=== PATIENT | male | born 1950 | race Caucasian/White ===

== ENCOUNTER → 2024-02-18 | Outpatient (CLI) | payer MEDICARE, MEDICAID, SELFPAY ==
--- NOTE | 2024-02-18 09:06 | BI_ITS ---
MAMMOGRAPHY - BILATERAL DIAGNOSTIC REASON FOR EXAM: Male, 73 years old. BREAST PAIN PERTINENT HISTORY: Non-contributory. TECHNIQUE: Digital examination. Mediolateral oblique (MLO) and craniocaudad (CC) views of both breasts were obtained. CAD: CAD was performed on this study. COMPARISON: None. FINDINGS: Breast Composition: The breasts are almost entirely fatty. There are no dominant masses or suspicious calcifications. There is a small amount of breast parenchyma in the retroareolar left breast corresponding to the area of pain consistent with gynecomastia. BI/DIAG MAMM W/CAD, BILAT IMPRESSION: Mild left gynecomastia likely explaining the patient''s pain. ASSESSMENT CATEGORY: BIRADS Category 2: Benign. A letter regarding these results will be sent to the patient by the facility within 30 days. FOLLOW UP RECOMMENDATION: No imaging follow up needed. (O) Approximately 10% of breast cancers are not detected by mammography. A normal mammogram should not delay biopsy of a clinically suspicious abnormality. Electronically Signed: Drew Gresham MD at 9:46 EDT ,
== END | disposition home or self-care (01) ==
PROVIDERS: PCP Family Medicine; Referring Provider Nurse Practitioner Family; Visit Provider Nurse Practitioner Family
DX: N64.4 Mastodynia (principal)
CPT/HCPCS: 77066

== ENCOUNTER 2024-07-02 17:53 | Inpatient (IN) | payer MEDICARE, MEDICAID, SELFPAY ==
[2024-07-02] VITALS (10 sets, daily range): BP systolic 112–142; BP diastolic 58–72; PULSE 101–118; RESP 17–22; TEMP 36.8–37.6; O2SAT 90–95; BMI 28.7; BMI 33.3
--- NOTE | 2024-07-02 18:04 | ED.RN ---
PT CAME EMS FROM THE [facility]. REPORT CALLED FROM THE [facility] STATES PT DEMANDED THEY CALL 911. HE WASN'T ABLE TO MOVE HIS FEET. UPON ARRIVAL PT HAS AN ELEVATED TEMP AND HR. 99.5 ORAL ANF 115 HR. PT HAS AUDIBLE GURGLING IN HIS CHEST. PT STATES HE HAS NOT HAD PRODUCTIVE COUGH.
--- NOTE | 2024-07-02 18:12 | EKG12_ITS ---
Test Reason : GEN IL Blood Pressure : */* mmHG Vent. Rate : 105 BPM Atrial Rate : 105 BPM P-R Int : 140 ms QRS Dur : 80 ms QT Int : 334 ms P-R-T Axes : 19 -2 44 degrees QTcB Int : 441 ms Sinus tachycardia with Premature atrial complexes Otherwise normal ECG Confirmed by ROSA PRITCHETT, CHRISTIN ([id number]), magazine editor DINA PENA ([id number]) on 07/03/2024 10:21:07 AM Referred By: Tom Escobedo Confirmed By: CHRISTIN LEE MD
[2024-07-02] MEDS: Albuterol 2.5 MG/3 ML VIAL.NEB. 5 MG INHALATION (18:20)
[2024-07-02] MEDS: Ipratropium/Albuterol Sulfate 3 ML AMPUL.NEB INHALATION (18:20)
--- NOTE | 2024-07-02 18:21 | EDS_ITS ---
<Statement entered by Kalen Sunshine DO - 07/02/24 20:55> Patient was seen and examined with Nurse aby Dos Santos All components of the history and physical confirmed and agreed. History of present illness and physical exam: Patient is a 73-year-old male who presented to the emergency department from [facility] with a chief complaint of shortness of breath, fever chills not feeling well. Patient does have a medical history of CVA with right- sided deficits nonambulatory is wheelchair-bound, hypertension, hyperlipidemia, anxiety, depression. Patient states that he has been sick for the last 4 to 5 days with intermittent needs of oxygen he states that he is not on oxygen chronically. Patient states that he is currently on azithromycin orally. Today noted that he was sweaty and felt worse and had increasing oxygen requirements therefore they sent him here for further evaluation management. Review of systems: Agree with above Physical exam: Agree with above [facility] Patient is a 73-year-old male who presents to the emergency department the chief complaint of cough, congestion, fever, increasing oxygen requirements secondary to hypoxia. Patient will have a workup performed here on the differential diagnose includes but not limited to ACS, pneumonia, upper respiratory infection second viral etiology. Once workup is obtained reviewed he will be reevaluated. Patient be given DuoNebs for his hypoxia. Patient CBC reviewed and was largely unremarkable no evidence of leukocytosis white blood count normal at 6.4, hemoglobin stable 13.8, platelet count normal at 247. Patient sodium was noted to be 132, potassium normal 4.5, creatinine normal at 1.14. Patient's AST and ALT are 15 and 32 respectively. Patient's troponin normal at 28 and proBNP normal at 65.7. Patient's EKG was independently interpreted myself which showed sinus rhythm with premature atrial complexes with a rate of 105 bpm. Patient's chest x-ray reviewed by myself and by radiology which showed no acute cardiopulmonary processes. Patient did test positive for influenza A. At this point time do believe the patient will warrant admission for his acute hypoxic respiratory failure in the setting of influenza A. Patient case was discussed with hospitalist Dr. Menard who accept patient for admission. Patient was notified as well as family at bedside all question concerns answered. Plan: Final impression: Acute hypoxic respiratory failure Influenza A Disposition: Patient will be admitted to the hospital for further evaluation management Supervising attending attestation: Kalen GARLAND History of Present Illness Chief Complaint: General Illness Narrative Narrative: Patient is a 73-year-old male who comes from extended care facility with main diagnosis of a CVA with right-sided deficit, patient's not ambulate he is from a wheelchair. Patient does have history of hypertension hyperlipidemia, anxiety, depression, chronic pain. Patient has been sick for the last 4 to 5 days. He has been coughing, having intermittent needs for oxygen. Patient is currently on azithromycin orally. Today, the patient was sweaty, had more rigors, is complaining more of back pain and leg pain and is here for evaluation. [facility] Home Medications ?Medication ?Instructions ?Recorded ?Last Taken ?Type albuterol sulfate 2.5 mg/3 mL 2.5 mg inhalation TID PRN 07/02/24 Unknown History (0.083 %) solution for nebulization shortness of breath or wheezing amlodipine 5 mg tablet 5 mg PO BID 07/02/24 Unknown History aspirin 81 mg capsule 81 mg PO DAILY 07/02/24 Unknown History atorvastatin 80 mg tablet 80 mg PO QHS 07/02/24 Unknown History azithromycin 250 mg tablet 250 mg PO DAILY 07/02/24 Unknown History (Zithromax) baclofen 10 mg tablet 10 mg PO BID 07/02/24 Unknown History baclofen 5 mg tablet 5 mg PO DAILY 07/02/24 Unknown History furosemide 40 mg tablet (Lasix) 40 mg PO DAILY 07/02/24 Unknown History ipratropium 20 mcg-albuterol 100 1 puff inhalation Q4H PRN 07/02/24 Unknown History mcg/actuation mist for inhalation shortness of breath or wheezing (Combivent Respimat) losartan 100 mg tablet 100 mg PO DAILY 07/02/24 Unknown History metoprolol succinate 25 mg 25 mg PO QHS 07/02/24 Unknown History tablet,extended release 24 hr potassium chloride 20 mEq 40 meq PO DAILY 07/02/24 Unknown History tablet,extended release prednisone 20 mg tablet 40 mg PO DAILY 07/02/24 Unknown History psyllium 1 packet PO DAILY 07/02/24 Unknown History thiamine HCl (vitamin B1) 100 mg 100 mg PO DAILY 07/02/24 Unknown History tablet trazodone 50 mg tablet 25 mg PO QHS 07/02/24 Unknown History venlafaxine 37.5 mg 37.5 mg PO DAILY 07/02/24 Unknown History capsule,extended release 24 hr (Effexor XR) venlafaxine 75 mg capsule,extended 75 mg PO DAILY 07/02/24 Unknown History release 24 hr (Effexor XR) Social History Smoking Status: Former smoker ROS ROS ED ROS Narrative Constitutional: Negative for weight loss. Positive fever, chills, weakness Eyes: Negative for vision loss, vision change, double vision ENT: Negative for any sore throat, ear pain, congestion Cardiovascular: Negative for any chest pain, tightness, palpitations Respiratory: Negative for any sputum production, hemoptysis, dyspnea on exertion, orthopnea. Positive for cough, dyspnea Gastrointestinal: Negative for any abdominal pain, nausea, vomiting, diarrhea, constipation, blood in stool, blood in vomit : Negative for any urinary frequency, dysuria, retention, blood in urine Muscle skeletal: Negative for any neck pain, back pain Neurological: Negative for any headache, syncope, dizziness Skin: Negative for any rashes, itching, abrasions, lacerations Psychiatric: Negative for any depression, anxiety, stress, suicidal ideation, homicidal ideation Hematologic: Negative for any excessive bruising, easy bleeding EXAM Physical Exam Narrative Exam Narrative: Vital signs reviewed. Patient tachycardic, low-grade fever. HEET: Head normocephalic atraumatic, TMs clear bilaterally. Posterior pharynx is clear, dry mucous membranes. Nares clear bilaterally. Neck: Supple with no lymphadenopathy or tenderness. No signs of meningismus. Cardiac: Tachycardic rate no murmurs gallops or rubs, equal peripheral pulses bilaterally. Respiratory: Rhonchorous breath sounds throughout, wheezes to the right mid to lower lobe. No chest tenderness. Abdomen: Soft, nontender.patient's abdomen is slightly distended. No abdominal bruit or pulsatile masses. No hepatosplenomegaly Extremities: No peripheral edema, no signs of gross trauma or deformity. Patient does have muscle wasting however when touching the patient's legs, he is able to flex and extend the feet. He is able to lift his legs off the bed. Neuro: Cranial nerves II through XII intact, no focal neurological deficits. Skin: Clean dry and intact with no rash, purpura, petechiae, vesicles or pustules. Backs/flank: No CVA tenderness, no midline spinal tenderness, no deformity. Psych: Normal mood and affect. No SI, HI or acute psychosis. Const Vital Signs: 07/02/24 17:57 07/02/24 18:00 07/02/24 18:01 Temperature 99.5 F H 99.5 F H Temperature Source Oral Oral Pulse Rate 118 H 113 H Respiratory Rate 17 17 Respiratory Effort Short of Breath Respiratory Pattern Tachypnea Blood Pressure 133/66 H 142/72 H Blood Pressure Mean 88 95 Pulse Ox 92 92 Oxygen Delivery Method Nasal Cannula Nasal Cannula Oxygen Flow Rate (L/min) 4 4 07/02/24 18:12 07/02/24 18:22 07/02/24 19:00 Temperature 99.7 F H Temperature Source Oral Pulse Rate 115 H 111 H Respiratory Rate 22 H 22 H Respiratory Effort Respiratory Pattern Blood Pressure 116/65 Blood Pressure Mean 82 Pulse Ox 92 Oxygen Delivery Method Nasal Cannula Nasal Cannula Oxygen Flow Rate (L/min) 4 4 07/02/24 19:54 07/02/24 20:00 Temperature 99.1 F 99.1 F Temperature Source Oral Pulse Rate 112 H 112 H Respiratory Rate 20 H 20 H Respiratory Effort Respiratory Pattern Blood Pressure 112/61 112/61 Blood Pressure Mean 78 78 Pulse Ox 92 92 Oxygen Delivery Method Nasal Cannula Oxygen Flow Rate (L/min) 4 Positive cachectic General Appearance ED: cachectic Nutritional Appearance: cachectic MDM MDM Lab Data Labs: Laboratory Results - last 24 hr 07/02/24 07/02/24 18:21 19:55 WBC 6.4 RBC 4.36 L Hgb 13.8 Hct 39.2 L MCV 89.9 MCH 31.7 MCHC 35.2 RDW Std Deviation 38.1 RDW Coeff of Sangeeta 11.6 Plt Count 247 MPV 9.4 Immature Gran % (Auto) 0.300 Neut % (Auto) 74.5 H Lymph % (Auto) 17.7 L Dickson % (Auto) 7.5 Eos % (Auto) 0.0 Baso % (Auto) 0.0 Absolute Neuts (auto) 4.8 Absolute Lymphs (auto) 1.13 Nucleated RBC % 0 PT 13.8 INR 1.1 APTT 28.9 Sodium 132 L Potassium 4.5 Chloride 102 Carbon Dioxide 21.0 Anion Gap 8 BUN 27 H Creatinine 1.14 Estim Creat Clear Calc 68.35 Est GFR (MDRD) Af Amer 81 Est GFR (MDRD) Non-Af 67 BUN/Creatinine Ratio 23.7 H Glucose 171 H Lactic Acid 1.3 Calcium 9.1 Total Bilirubin 0.80 AST 50 H ALT 32 Alkaline Phosphatase 86 Troponin I High Sens 28 B-Natriuretic Peptide 65.7 Total Protein 7.4 Albumin 3.5 Globulin 3.9 Albumin/Globulin Ratio 0.9 Urine Color Yellow Urine Clarity Clear Urine pH 6.0 Ur Specific [place] 1.015 Urine Protein 15 H Urine Glucose (UA) Normal Urine Ketones Negative Urine Occult Blood Negative Urine Nitrite Negative Urine Bilirubin Negative Urine Urobilinogen Normal Ur Leukocyte Esterase Negative Urine RBC 0 SEEN Urine WBC 0 SEEN Ur Squamous Epith Cells 0 SEEN Urine Bacteria 0 SEEN Urine Mucus 0 SEEN Radiography Diagnostic Testing: Clinical Impression(s) from Imaging Studies Chest X-Ray 07/02/24 19:00 IMPRESSION: There are no acute findings. Electronically Signed: Zach Cantrell MD at 20:11 EST Reading Location ID and State: [facility] / [place] , Service support , EKG Sinus tachycardia: Attestation: I personally reviewed and interpreted this EKG as follows: Comments: Sinus tachycardia with PACs, rate 105 bpm, [place] 140 ms, QRS duration 80 ms, no acute ST elevation, no acute infarct noted. Treatment and Re-Evaluation :: Differential diagnosis includes however is not limited to: COVID-19, RSV, influenza, community-acquired pneumonia, COPD exacerbation, hypoxia, dehydration, ACS, MT, PE, fluid overload, CHF Patient is slightly tachypneic, tachycardic, low-grade temperature. Patient does have adventitious breath sounds, [facility], back pain, weakness over the last week. Patient will receive a septic workup including troponins, lactic, 2 blood cultures. Patient received a chest x-ray, COVID flu influenza, IV fluids oral Tylenol. All radiologic examinations were read, reviewed by the emergency department attending. From these reads, a plan of care will be put in place. Patient's chest x-ray showed no acute cardiopulmonary pathology. Patient's PT/INR within normal limits. Chemistry shows sodium 132, BUN 27, patient's troponin was negative, BNP was negative. Patient did receive 2 sets of blood cultures, patient's viral swab was positive for influenza A, this does explain the patient's fatigue, fever and chills as well as hypoxia. Patient will need to be admitted to the hospital for increased oxygen demand, patient is currently on 4 L at 92 to 94%. I will reach out to the hospitalist. Patient will be admitted to the hospitalist. Discharge Plan Triage Chief Complaint: General Illness ED Midlevel Provider: Levon Olivares ED Provider: Kalen Sunshine Dx/Rx/DC Orders Clinical Impression: Hypoxia, Influenza A Primary Care Provider: Levon Duke Disposition Disposition: Acute Care Hospital [facility]
[2024-07-02 18:40] LABS: Absolute Lymphocyte Count 1.13 X10^3/uL (0.83-4.51); Absolute Neutrophil Count 4.8 X10^3/uL (2.0-7.7); Hematocrit 39.2 % (40-54); Hemoglobin 13.8 g/dL (13.0-16.5); Lymphocyte # 1.13 X10^3/ul (0.83-4.51); Lymphocyte % 17.7 % (19-41); Mean Corp Hgb Conc 35.2 g/dL (32-36); Mean Corpuscular Hgb 31.7 pg (27.0-32.0); Mean Corpuscular Volume 89.9 fL (80-94); Mean Platelet Vol. 9.4 fl (6.2-12.0); Monocyte# 0.48 X10^3/uL; Monocyte% 7.5 % (0-10); NRBC Flagged by Analyzer 0 % (0-5); Neutrophil # 4.75 X10^3/uL (2.7-7.7); Neutrophil % 74.5 % (47-70); Platelet Count 247 K/mm3 (150-450); RBC Distribution Width CV 11.6 % (11.6-14.6); RBC Distribution Width SD 38.1 fl (35.1-43.9); Red Blood Count 4.36 M/mm3 (4.6-6.2); White Blood Count 6.4 K/mm3 (4.4-11.0)
[2024-07-02 18:45] LABS: International Normalized Ratio 1.1; Partial Thromboplast Time 28.9 Seconds (24.1-36.2); Prothrombin Time (Protime)PT. 13.8 SECONDS (11.7-14.9)
[2024-07-02 18:54] LABS: Lactic Acid 1.3 mmol/L (0.4-1.9)
[2024-07-02 18:57] LABS: ALB/GLOB Ratio 0.9 RATIO (0.9-2.4); AST(SGOT) 50 U/L (15-37); Alanine Aminotransfer ALT/SGPT 32 U/L (16-61); Albumin, Serum 3.5 g/dL (3.2-5.0); Alkaline Phosphatase 86 U/L (45-117); Anion Gap 8 (5-15); BUN 27 mg/dL (7-18); BUN/Creat Ratio 23.7 RATIO (10-20); Calcium,Total 9.1 mg/dL (8.5-10.1); Chloride 102 mmol/L (98-107); Creatinine, Serum 1.14 mg/dL (0.70-1.30); EST Glomerular Filtration Rate 67 mL/min (>60); Est Glom Filt Rate - Afr Amer 81 mL/min (>60); Estimated Creatinine Clearance 68.35 ml/min; Globulin 3.9 g/dL (2.2-4.2); Glucose 171 mg/dL (74-106); Potassium 4.5 mmol/L (3.5-5.1); Protein, Total 7.4 g/dL (6.4-8.2); Sodium Level 132 mmol/L (136-145); Troponin-I HS 28 pg/mL (3.0-78.0)
[2024-07-02] MEDS: 0.9% Normal Saline (1000mL) 1,000 ML 999 ML IV (18:58)
[2024-07-02] MEDS: Acetaminophen 500 MG Tablet 1000 MG PO (18:58)
--- NOTE | 2024-07-02 19:00 | RAD_ITS ---
STUDY: XR Chest 1 View 07/02/2024 7:00 PM REASON FOR EXAM: Male, 73 years old. cough COMPARISON: None TECHNIQUE: XR Chest 1 View FINDINGS: There is no demonstrated pleural abnormality. Normal heart size. Normal mediastinum. Normal yamileth. Prominent appearing increased interstitial lung markings. Normal visualized pulmonary arteries. There is atherosclerotic calcification of the aortic arch with tortuosity. There are diffuse degenerative changes of the visualized thoracic spine. There is degenerative osteoarthritis of the bilateral shoulders. There are no acute findings of the upper abdomen. RAD/Chest 1 View (Portable) IMPRESSION: There are no acute findings. Electronically Signed: Zach Cantrell MD at 20:11 EST ,
[2024-07-02 19:14] LABS: BNP,B-Type NATRIURETIC PEPTIDE 65.7 pg/mL (0-100)
--- NOTE | 2024-07-02 19:45 | PCM.HP.STD ---
[facility] - General General Date of Admission: 07/02/24 Date of Service: 07/02/24 Chief Complaint: Cough, Generalized Weakness, Malaise and Body Aches. HPI Narrative MONICA AMAYA, is a 73 M with a past medical history of essential hypertension; on Lasix, Losartan, Metoprolol and Amlodipine, hyperlipidemia, overweight; with BMI of 28.7 this admission, former tobacco abuse, depression with anxiety; on Venlafaxine and Trazodone, OA; with chronic pain and history of CVA; with residual Right-sided weakness and mobilizing in a wheelchair currently residing at [facility] who presents to [facility] ER complaining of generalized weakness and malaise. Mr. Amaya reports his symptoms began approximately 4-5 days prior to admission with the gradual-onset of progressively worsening cough with generalized weakness and malaise with fatigue and increasing body aches with patient recently started on oral Azithromycin and Prednisone for suspected bronchitis. He then developed a nonproductive cough with a low-grade fever of ~99.7 degrees Fahrenheit with the staff at his [facility] noting hypoxia in the ~85% range on RA so he was sent in to the ER for further evaluation and treatment. He also admits having rigors and sweats with more back pain and leg pain than normal. He denies associated nausea, vomiting, diarrhea, constipation, chest pain, palpitations, heart racing, headache, new focal neurologic deficits or needing supplemental oxygen recently. In the ER his viral PCR assay returned positive for Influenza A complicated by clinical evidence of Acute Respiratory Insufficiency and laboratory evidence of Dehydration; with elevated BUN/creatinine ratio of 23.7 present on admission compounded by Generalized Weakness with Fatigue and Malaise in the setting of known prior CVA; with residual Right-sided weakness and OA with Chronic Pain exacerbated by acute viral illness and he was then admitted to the general medical floor with telemetric monitoring under droplet precautions for ongoing care for a stay that is expected to extend beyond 48 hours. [facility] Home Medications ?Medication ?Instructions ?Recorded ?Last Taken ?Type albuterol sulfate 2.5 mg/3 mL 2.5 mg inhalation TID PRN 07/02/24 Unknown History (0.083 %) solution for nebulization shortness of breath or wheezing amlodipine 5 mg tablet 5 mg PO BID 07/02/24 Unknown History aspirin 81 mg capsule 81 mg PO DAILY 07/02/24 Unknown History atorvastatin 80 mg tablet 80 mg PO QHS 07/02/24 Unknown History azithromycin 250 mg tablet 250 mg PO DAILY 07/02/24 Unknown History (Zithromax) baclofen 10 mg tablet 10 mg PO BID 07/02/24 Unknown History baclofen 5 mg tablet 5 mg PO DAILY 07/02/24 Unknown History furosemide 40 mg tablet (Lasix) 40 mg PO DAILY 07/02/24 Unknown History ipratropium 20 mcg-albuterol 100 1 puff inhalation Q4H PRN 07/02/24 Unknown History mcg/actuation mist for inhalation shortness of breath or wheezing (Combivent Respimat) losartan 100 mg tablet 100 mg PO DAILY 07/02/24 Unknown History metoprolol succinate 25 mg 25 mg PO QHS 07/02/24 Unknown History tablet,extended release 24 hr potassium chloride 20 mEq 40 meq PO DAILY 07/02/24 Unknown History tablet,extended release prednisone 20 mg tablet 40 mg PO DAILY 07/02/24 Unknown History psyllium 1 packet PO DAILY 07/02/24 Unknown History thiamine HCl (vitamin B1) 100 mg 100 mg PO DAILY 07/02/24 Unknown History tablet trazodone 50 mg tablet 25 mg PO QHS 07/02/24 Unknown History venlafaxine 37.5 mg 37.5 mg PO DAILY 07/02/24 Unknown History capsule,extended release 24 hr (Effexor XR) venlafaxine 75 mg capsule,extended 75 mg PO DAILY 07/02/24 Unknown History release 24 hr (Effexor XR) Allergy/AdvReac Type Severity Reaction Status Date / Time No Known Allergies Allergy Verified 07/02/24 22:23 Social History Smoking Status: Former smoker ROS ROS Narrative Review of Systems: Constitutional: Patient admits to chills with a low-grade fever as noted in HPI. Eyes: Patient denies visual changes or discharge from eyes. ENT: Patient denies runny nose, sore throat or ear pain. Resp: Patient admits to SOB and nonproductive cough as per HPI. CV: Patient denies chest pain, palpitations or heart racing. GI: Patient denies abdominal pain, nausea, vomiting, diarrhea or constipation. : Patient denies dysuria or hematuria. MSK: Patient generalized body aches exacerbating his chronic pain. Skin: Patient denies rash, abscess or jaundice. Psych: Patient denies symptoms of uncontrolled depression or anxiety. Neuro: Patient denies headache, paresthesias or new focal neurologic deficits. Allergy: Patient denies lip swelling, tongue swelling or urticaria. Hematology: Patient denies easy bleeding or easy bruisability. Endocrinology: Patient denies polyuria, polydipsia or polyphagia. 14 point ROS otherwise negative except for positives noted above in HPI. Vital Signs Vital Signs Vital Signs: 07/02/24 17:57 07/02/24 18:00 07/02/24 18:01 Temperature 99.5 F H 99.5 F H Temperature Source Oral Oral Pulse Rate 118 H 113 H Respiratory Rate 17 17 Respiratory Effort Short of Breath Respiratory Pattern Tachypnea Blood Pressure 133/66 H 142/72 H Blood Pressure Mean 88 95 Pulse Ox 92 92 Oxygen Delivery Method Nasal Cannula Nasal Cannula Oxygen Flow Rate (L/min) 4 4 07/02/24 18:12 07/02/24 18:22 07/02/24 19:00 Temperature 99.7 F H Temperature Source Oral Pulse Rate 115 H 111 H Respiratory Rate 22 H 22 H Respiratory Effort Respiratory Pattern Blood Pressure 116/65 Blood Pressure Mean 82 Pulse Ox 92 Oxygen Delivery Method Nasal Cannula Nasal Cannula Oxygen Flow Rate (L/min) 4 4 Weight Weight: 205 lb 11.06 oz Body Mass Index (BMI) 28.7 Physical Exam Const alert, oriented x3 and average body habitus Constitutional Narrative: Mild distress noted with chronically ill appearance. General Appearance: cooperative HEENT normocephalic, head/scalp atraumatic, hearing grossly normal bilaterally and moist oral mucous membranes Eyes PERRL and EOMs intact bilaterally Neck no lymphadenopathy and supple Resp normal respiratory effort, no retractions, no use of accessory muscles and clear to auscultation bilaterally Cardio Cardio Narrative: Mild tachycardia noted at ~110 bpm. GI normal to inspection, nondistended, normoactive bowel sounds, soft to palpation, non-tender and non-distended Extremity Extremity Narrative: Patient has evidence of muscle-wasting on the Right. Skin Skin Narrative: Patient has no evidence of rash, abscess or jaundice. Neuro oriented x3, CN's II-XII intact bilaterally, moves all extremities and no focal motor deficits Sensorium / Orientation: awake, alert, oriented to person, oriented to place and oriented to time Speech: speech normal Psych affect normal Results Medical Records Data Attestation: I reviewed the patient's medical records Lab / Micro Data Attestation: I reviewed the patient's lab results. 07/02/24 18:21 07/02/24 18:21 Labs: Laboratory Results - last 24 hr 07/02/24 18:21: WBC 6.4, RBC 4.36 L, Hgb 13.8, Hct 39.2 L, MCV 89.9, MCH 31.7, MCHC 35.2, RDW Std Deviation 38.1, RDW Coeff of Sangeeta 11.6, Plt Count 247, MPV 9.4, Immature Gran % (Auto) 0.300, Neut % (Auto) 74.5 H, Lymph % (Auto) 17.7 L, [place] % (Auto) 7.5, Eos % (Auto) 0.0, Baso % (Auto) 0.0, Absolute Neuts (auto) 4.8, Absolute Lymphs (auto) 1.13, Nucleated RBC % 0, PT 13.8, INR 1.1, APTT 28.9, Sodium 132 L, Potassium 4.5, Chloride 102, Carbon Dioxide 21.0, Anion Gap 8, BUN 27 H, Creatinine 1.14, Estim Creat Clear Calc 68.35, Est GFR (MDRD) Af Amer 81, Est GFR (MDRD) Non-Af 67, BUN/Creatinine Ratio 23.7 H, Glucose 171 H, Lactic Acid 1.3, Calcium 9.1, Total Bilirubin 0.80, AST 50 H, ALT 32, Alkaline Phosphatase 86, Troponin I High Sens 28, B-Natriuretic Peptide 65.7, Total Protein 7.4, Albumin 3.5, Globulin 3.9, Albumin/Globulin Ratio 0.9 Micro: Microbiology 07/02/24 18:26 Mucosa - Nose SARS-CoV-2, Influenza & RSV (PCR) - Final Influenzae A Imaging [facility] Imaging Services [address] [place] [address] Chest 1 View (Portable) MR#: [id number] Acct: [id number] Name: MONICA AMAYA Rep #: [id number] : 1950 M 73 From: Zach Cantrell MD PCP: Dr. Levon Duke MD Status: REG ER Study: Chest 1 View (Portable) Date of Exam: 07/02/24 Exam# [id number] Ordering Dr: Levon Olivares STUDY: XR Chest 1 View 07/02/2024 7:00 PM REASON FOR EXAM: Male, 73 years old. cough COMPARISON: None TECHNIQUE: XR Chest 1 View FINDINGS: There is no demonstrated pleural abnormality. Normal heart size. Normal mediastinum. Normal yamileth. Prominent appearing increased interstitial lung markings. Normal visualized pulmonary arteries. There is atherosclerotic calcification of the aortic arch with tortuosity. There are diffuse degenerative changes of the visualized thoracic spine. There is degenerative osteoarthritis of the bilateral shoulders. There are no acute findings of the upper abdomen. RAD/Chest 1 View (Portable) IMPRESSION: There are no acute findings. Electronically Signed: Zach Cantrell MD at 20:11 EST Reading Location ID and State: [facility] / [place] , Service support , CC: NAYELI Olivares; Dr. Levon Duke MD ~ [employer]oon [employer]pper: Signed Assessment & Plan Assessment/Plan (1) Influenza: (2) Respiratory insufficiency: (3) Dehydration: (4) Generalized weakness: (5) Malaise and fatigue: (6) Chronic pain: QUALIFIERS: Chronic pain type: other chronic pain Qualified Code(s): G89.29 - Other chronic pain (7) History of CVA (cerebrovascular accident): (8) Overweight (BMI 25.0-29.9): PLAN: Plan 1. Acute Influenza A - Admit to general medical floor with telemetric monitoring under droplet precautions. Start Tamiflu 75 mg PO BID. Give vitamin C, vitamin D3 and Zinc to hopefully help boost immunity and speed recovery. Give Tylenol prn for [id number] (level 1-5/10) pain or fever. 2. Acute Respiratory Insufficiency due to #1 - Wean supplemental oxygen as tolerated. 3. Dehydration; evidenced by elevated BUN/creatinine ratio of 23.7 present on admission complicating #1 & #2 - Hold diuretic and volume resuscitate with NS @ 70 cc/hr x 1 liter and then reassess renal indices in AM to monitor response to treatment. 4. Generalized Weakness and Malaise with Severe Fatigue exacerbating preexisting OA with Chronic Pain arising from #1 - #3 - Give Morphine IV prn for severe (level 6-10/10) pain. PT/OT and Case Management to consult and treat on-rounds in the AM for further recommendations with help appreciated in advance. 5. History of CVA; with residual Right-sided weakness and mobilizing in a wheelchair currently residing at [facility] adding to the medical complexity of #1 - #4 with frail, elderly patient poorly tolerating acute viral syndrome - Noted. 6. Overweight; with BMI of 28.7 this admission adding to the burden of disease outlined from #1 - #5 - Weight loss will be recommended. Check TSH. This complicates his case and may hamper recovery. 7. Essential hypertension - Hold Lasix but continue other previous blood pressure medications. Give Hydralazine IV prn for systolic blood pressure > 160 mmHg. 8. Hyperlipidemia - Resume statin. 9. Former tobacco abuse - Noted. 10. Depression with anxiety - Resume home regimen as previous. 11. DVT prophylaxis - Lovenox 40 mg sq daily plus SCD's. Total time: Approximately (but not less than) 75 minutes. Charges/Coding Visit Charges Inpatient E&M: 03787 Init Hosp L3
[2024-07-02 20:01] LABS: Bacteria 0 SEEN /hpf (None Seen); Mucous, Urine 0 SEEN /hpf (<or=2+); Red Blood Cells-Urine 0 SEEN /hpf (0-5); Squamous Epithelial Cells - UA 0 SEEN /hpf (0-5); White Blood Cells 0 SEEN /hpf (0-5)
[2024-07-02 20:06] LABS: Color, Urine Yellow (Yellow); Glucose, Dipstick Normal (Normal); Ketone-Dipstick Negative (Negative); Leukocyte Esterase-Dipstick Negative /ul (Negative); Nitrite-Dipstick Negative (Negative); Occult Blood-Urine Negative /ul (Negative); Protein-Dipstick 15 mg/dl (Negative); Specific Gravity, Urine 1.015 (1.002-1.030); Urine Bilirubin Dipstick Negative (Negative); Urine Clarity Clear (Clear); Urine Urobilinogen Normal (Normal)
[2024-07-02] MEDS: fentaNYL 100 MCG/2 ML Ampul 25 MCG IV (21:19)
[2024-07-02] MEDS: amLODIPine 5 MG Tablet PO (23:28)
[2024-07-02] MEDS: 0.9% Normal Saline (1000mL) 1,000 ML 70 ML IV (23:28)
[2024-07-02] MEDS: Metoprolol(XL)Succ 25 MG Tablet PO (23:28)
[2024-07-02] MEDS: Baclofen 10 MG Tablet PO (23:29)
[2024-07-02] MEDS: Atorvastatin Calcium 80 MG Tablet PO (23:30)
[2024-07-02] MEDS: traZODone 50 MG Tablet 25 MG PO (23:30)
[2024-07-02] MEDS: Oseltamivir Phosphate 75 MG Capsule PO (23:30)
[2024-07-02] MEDS: 0.9% Saline Lock 10 ML Syringe IV (23:31)
[2024-07-03] VITALS (18 sets, daily range): BP systolic 113–143; BP diastolic 53–95; PULSE 89–114; RESP 18–24; TEMP 36.4–37.1; O2SAT 86–97
[2024-07-03] MEDS: Ipratropium/Albuterol Sulfate 3 ML AMPUL.NEB INHALATION ×2 (06:54→18:42)
[2024-07-03 07:23] LABS: Absolute Lymphocyte Count 1.64 X10^3/uL (0.83-4.51); Absolute Neutrophil Count 3.7 X10^3/uL (2.0-7.7); Hematocrit 37.6 % (40-54); Hemoglobin 12.9 g/dL (13.0-16.5); Lymphocyte # 1.64 X10^3/ul (0.83-4.51); Lymphocyte % 26.6 % (19-41); Mean Corp Hgb Conc 34.3 g/dL (32-36); Mean Corpuscular Hgb 31.2 pg (27.0-32.0); Mean Corpuscular Volume 90.8 fL (80-94); Mean Platelet Vol. 9.5 fl (6.2-12.0); Monocyte# 0.84 X10^3/uL; Monocyte% 13.6 % (0-10); NRBC Flagged by Analyzer 0 % (0-5); Neutrophil # 3.66 X10^3/uL (2.7-7.7); Neutrophil % 59.5 % (47-70); Platelet Count 222 K/mm3 (150-450); RBC Distribution Width CV 11.6 % (11.6-14.6); RBC Distribution Width SD 38.8 fl (35.1-43.9); Red Blood Count 4.14 M/mm3 (4.6-6.2); White Blood Count 6.2 K/mm3 (4.4-11.0)
[2024-07-03 07:59] LABS: ALB/GLOB Ratio 0.8 RATIO (0.9-2.4); AST(SGOT) 46 U/L (15-37); Alanine Aminotransfer ALT/SGPT 28 U/L (16-61); Albumin, Serum 3.1 g/dL (3.2-5.0); Alkaline Phosphatase 76 U/L (45-117); Anion Gap 6 (5-15); BUN 23 mg/dL (7-18); Calcium,Total 8.8 mg/dL (8.5-10.1); Chloride 107 mmol/L (98-107); Creatinine, Serum 0.88 mg/dL (0.70-1.30); EST Glomerular Filtration Rate 90 mL/min (>60); Est Glom Filt Rate - Afr Amer 109 mL/min (>60); Estimated Creatinine Clearance 86.67 ml/min; Globulin 3.7 g/dL (2.2-4.2); Glucose 111 mg/dL (74-106); Phosphorus 2.4 mg/dL (2.5-4.9); Potassium 4.1 mmol/L (3.5-5.1); Protein, Total 6.8 g/dL (6.4-8.2); Sodium Level 135 mmol/L (136-145)
[2024-07-03] MEDS: Losartan Potassium 100 MG Tablet PO (08:09)
[2024-07-03] MEDS: Potassium Chloride Oral Tablet 20 MEQ 40 MEQ PO (08:09)
[2024-07-03] MEDS: predniSONE 20 MG Tablet 40 MG PO (08:10)
[2024-07-03] MEDS: Azithromycin 250 MG Tablet PO (08:10)
[2024-07-03] MEDS: Ascorbic Acid 500 MG Tablet 1000 MG PO ×2 (08:10→16:57)
[2024-07-03] MEDS: Zinc Sulfate 50 mg zinc (220 mg) ORAL capsule PO (08:10)
[2024-07-03] MEDS: Thiamine Hydrochloride 100 MG Tablet PO (08:10)
[2024-07-03] MEDS: Enoxaparin 40 MG/0.4 ML Syringe SC (08:10)
[2024-07-03] MEDS: Baclofen 10 MG Tablet PO ×2 (08:10→21:46)
[2024-07-03] MEDS: 0.9% Saline Lock 10 ML Syringe IV ×3 (08:11→21:47)
[2024-07-03] MEDS: Morphine 2 MG/ML Syringe IV (08:11)
[2024-07-03] MEDS: Cholecalciferol (Vit D3) 125 MCG CAPSULE (5,000 UNITS) PO (08:11)
[2024-07-03] MEDS: Psyllium 1 PACKET PO (08:11)
[2024-07-03] MEDS: Aspirin 81 MG TAB.CHEW PO (08:11)
[2024-07-03] MEDS: Venlafaxine XR 75 MG Capsule PO (08:11)
[2024-07-03] MEDS: amLODIPine 5 MG Tablet PO ×2 (08:11→21:49)
[2024-07-03] MEDS: Oseltamivir Phosphate 75 MG Capsule PO ×2 (08:11→21:46)
[2024-07-03] MEDS: Albuterol 2.5 MG/3 ML VIAL.NEB. INHALATION (09:04)
--- NOTE | 2024-07-03 11:07 | PN.HOSP_ITS ---
Subjective Subjective Had increased oxygen requirements to 4 L overnight Objective Data Objective Data Vital Signs: Vital Signs Temp Pulse Resp BP Pulse Ox O2 Del Method O2 Flow Rate 98.6 F 112 H 19 H 143/79 H 95 Nasal Cannula 4 07/03/24 08:00 07/03/24 10:28 07/03/24 09:00 07/03/24 08:00 07/03/24 08:00 07/03/24 08:00 07/03/24 08:00 Oxygen Flow Rate (L/min) 4 Oxygen Delivery Method Nasal Cannula Weight: 218 lb 14.4 oz Body Mass Index (BMI) 33.3 Intake & Output: Intake and Output for Last 24 Hours 07/02/24 07/03/24 07/04/24 03:59 03:59 03:59 Intake Total 1000 / 1000 Output Total 500 / 500 Balance 1000 / 1000 -500 / -500 Lab / Micro Data 07/03/24 06:57 07/03/24 06:57 Labs: Laboratory Results - last 24 hr 07/02/24 18:21: WBC 6.4, RBC 4.36 L, Hgb 13.8, Hct 39.2 L, MCV 89.9, MCH 31.7, MCHC 35.2, RDW Std Deviation 38.1, RDW Coeff of Sangeeta 11.6, Plt Count 247, MPV 9.4, Immature Gran % (Auto) 0.300, Neut % (Auto) 74.5 H, Lymph % (Auto) 17.7 L, [place] % (Auto) 7.5, Eos % (Auto) 0.0, Baso % (Auto) 0.0, Absolute Neuts (auto) 4.8, Absolute Lymphs (auto) 1.13, Nucleated RBC % 0, PT 13.8, INR 1.1, APTT 28.9, Sodium 132 L, Potassium 4.5, Chloride 102, Carbon Dioxide 21.0, Anion Gap 8, BUN 27 H, Creatinine 1.14, Estim Creat Clear Calc 68.35, Est GFR (MDRD) Af Amer 81, Est GFR (MDRD) Non-Af 67, BUN/Creatinine Ratio 23.7 H, Glucose 171 H, Lactic Acid 1.3, Calcium 9.1, Total Bilirubin 0.80, AST 50 H, ALT 32, Alkaline Phosphatase 86, Troponin I High Sens 28, B-Natriuretic Peptide 65.7, Total Protein 7.4, Albumin 3.5, Globulin 3.9, Albumin/Globulin Ratio 0.9 07/02/24 19:55: Urine Color Yellow, Urine Clarity Clear, Urine pH 6.0, Ur Specific [place] 1.015, Urine Protein 15 H, Urine Glucose (UA) Normal, Urine Ketones Negative, Urine Occult Blood Negative, Urine Nitrite Negative, Urine Bilirubin Negative, Urine Urobilinogen Normal, Ur Leukocyte Esterase Negative, Urine RBC 0 SEEN, Urine WBC 0 SEEN, Ur Squamous Epith Cells 0 SEEN, Urine Bacteria 0 SEEN, Urine Mucus 0 SEEN 07/02/24 20:15: TSH 1.400 07/03/24 06:57: WBC 6.2, RBC 4.14 L, Hgb 12.9 L, Hct 37.6 L, MCV 90.8, MCH 31.2, MCHC 34.3, RDW Std Deviation 38.8, RDW Coeff of Sangeeta 11.6, Plt Count 222, MPV 9.5, Immature Gran % (Auto) 0.300, Neut % (Auto) 59.5, Lymph % (Auto) 26.6, [place] % (Auto) 13.6 H, Eos % (Auto) 0.0, Baso % (Auto) 0.0, Absolute Neuts (auto) 3.7, Absolute Lymphs (auto) 1.64, Nucleated RBC % 0, Sodium 135 L, Potassium 4.1, Chloride 107, Carbon Dioxide 22.0, Anion Gap 6, BUN 23 H, Creatinine 0.88, Estim Creat Clear Calc 86.67, Est GFR (MDRD) Af Amer 109, Est GFR (MDRD) Non-Af 90, B UN/Creatinine Ratio 26.0 H, Glucose 111 H, Calcium 8.8, Phosphorus 2.4 L, Magnesium 2.0, Total Bilirubin 0.80, AST 46 H, ALT 28, Alkaline Phosphatase 76, Total Protein 6.8, Albumin 3.1 L, Globulin 3.7, Albumin/Globulin Ratio 0.8 L Micro: Microbiology 07/02/24 18:26 Mucosa - Nose SARS-CoV-2, Influenza & RSV (PCR) - Final Influenzae A Radiography Diagnostic Testing: Radiology Impression Chest X-Ray 07/02/24 19:00 IMPRESSION: There are no acute findings. Electronically Signed: Zach Cantrell MD at 20:11 EST Reading Location ID and State: [facility] / [place] , Service support , Physical Exam Narrative General: Alert, Oriented x3, Cooperative, No apparent distress HEENT: Atraumatic, PERRLA, EOMI, Normocephalic Oral: Moist Mucosa Neck: Supple, No JVD Lungs: Diminished, Normal air movement, No rhonchi, scattered wheeze, No rales Cardiovascular: Tachycardic, Regular Rhythm, Normal S1, Normal S2, No murmurs Abdomen: Soft, Non Tender, Non-Distended, No Hepato-splenomegaly Extremities: No edema, Capillary Refill Less than 3 Seconds Skin: No rashes, No breakdown Musculoskeletal: No Tenderness to Palpation of Joints or Extremities Neurological: No focal neurological deficits, sensory exam intact to light touch and pain, continues with right-sided weakness from a previous stroke Psych/Mental Status: Normal Affect, Appropriate Assessment & Plan Assessment/Plan (1) Influenza: (2) Respiratory insufficiency: PLAN: Plan 1. Acute respiratory insufficiency secondary to influenza A in the setting of COPD ? Continue with inhalers and steroids ? Continue with Tamiflu ? Had increase his oxygen today to 4 L, will continue to monitor 2. Essential HTN/HLD/history of CVA ? Blood pressures are stable ? Continue with his home medications ? Will monitor make adjustments as necessary ? His Lasix were held secondary to needing some gentle IV fluids, will complete 1 bag given shortage 3. Depression/anxiety ? Stable ? Continue with his home medications DVT: Lovenox Charges/Coding Visit Charges Inpatient E&M: 66727 Subs Hosp L2
--- NOTE | 2024-07-03 12:19 | CASEMGMT ---
Social Work- SW met with pt to confirm preferences at d/c. Pt reports that he is planning to return to [facility]. DCA advised. SW remains available to follow. Plan: [facility]
--- NOTE | 2024-07-03 12:33 | CASEMGMT ---
Addendum entered by Makenna Calabrese 07/03/24 14:33: Pt can return w/o precert. Makenna Calabrese DC Planning Asst. Original Note: Discharge Planning Updates sent via [facility] to [place] at May. Asked if precert is needed. Awaiting response. Makenna Calabrese DC Planning Asst.
[2024-07-03] MEDS: Furosemide 40 MG/4 ML Vial IV ×2 (16:57→21:44)
--- NOTE | 2024-07-03 17:19 | CPS ---
called to evaluate patient. patient is barely 90% on 6 lpm. he has course crackles, and is on 40 mg. of lasix at home, daily. I's and O's are positive for 1000 mg. made suggestion for lasix to nurse and charge nurse. If lasix doesnt help, call us and we will start airvo on him.
[2024-07-03] MEDS: Atorvastatin Calcium 80 MG Tablet PO (21:45)
[2024-07-03] MEDS: traZODone 50 MG Tablet 25 MG PO (21:45)
[2024-07-03] MEDS: Metoprolol(XL)Succ 25 MG Tablet PO (21:46)
[2024-07-04] VITALS (17 sets, daily range): BP systolic 124–137; BP diastolic 65–76; PULSE 77–98; RESP 18–24; TEMP 36.6–36.8; O2SAT 92–97; BMI 33.5
[2024-07-04] MEDS: 0.9% Saline Lock 10 ML Syringe IV ×3 (05:36→14:21)
[2024-07-04] MEDS: Ipratropium/Albuterol Sulfate 3 ML AMPUL.NEB INHALATION ×3 (07:07→19:50)
[2024-07-04 08:05] LABS: Magnesium 2.2 mg/dL (1.6-2.6); Phosphorus 3.2 mg/dL (2.5-4.9)
[2024-07-04 08:33] LABS: Anion Gap 11 (5-15); BUN 26 mg/dL (7-18); BUN/Creat Ratio 32.5 RATIO (10-20); Calcium,Total 8.7 mg/dL (8.5-10.1); Chloride 104 mmol/L (98-107); EST Glomerular Filtration Rate 101 mL/min (>60); Est Glom Filt Rate - Afr Amer 122 mL/min (>60); Estimated Creatinine Clearance 95.91 ml/min; Glucose 154 mg/dL (74-106); Potassium 4.2 mmol/L (3.5-5.1); Sodium Level 137 mmol/L (136-145)
[2024-07-04] MEDS: Psyllium 1 PACKET PO (09:14)
[2024-07-04] MEDS: Baclofen 10 MG Tablet PO ×2 (09:14→23:07)
[2024-07-04] MEDS: Aspirin 81 MG TAB.CHEW PO (09:14)
[2024-07-04] MEDS: Enoxaparin 40 MG/0.4 ML Syringe SC (09:14)
[2024-07-04] MEDS: Venlafaxine XR 75 MG Capsule PO (09:14)
[2024-07-04] MEDS: Azithromycin 250 MG Tablet PO (09:14)
[2024-07-04] MEDS: Ascorbic Acid 500 MG Tablet 1000 MG PO ×2 (09:14→17:04)
[2024-07-04] MEDS: Zinc Sulfate 50 mg zinc (220 mg) ORAL capsule PO (09:14)
[2024-07-04] MEDS: Oseltamivir Phosphate 75 MG Capsule PO ×2 (09:15→23:08)
[2024-07-04] MEDS: Cholecalciferol (Vit D3) 125 MCG CAPSULE (5,000 UNITS) PO (09:15)
[2024-07-04] MEDS: Potassium Chloride Oral Tablet 20 MEQ 40 MEQ PO (09:15)
[2024-07-04] MEDS: amLODIPine 5 MG Tablet PO ×2 (09:15→23:08)
[2024-07-04] MEDS: Losartan Potassium 100 MG Tablet PO (09:15)
[2024-07-04] MEDS: Thiamine Hydrochloride 100 MG Tablet PO (09:15)
--- NOTE | 2024-07-04 10:47 | PN.HOSP_ITS ---
Subjective Subjective Doing well, denies any issues says that he is breathing okay with the Airvo Objective Data Objective Data Vital Signs: Vital Signs Temp Pulse Resp BP Pulse Ox O2 Del Method O2 Flow Rate 98.1 F 94 20 H 124/71 H 95 Airvo 35 07/04/24 08:56 07/04/24 08:56 07/04/24 08:56 07/04/24 08:56 07/04/24 08:56 07/04/24 09:00 07/04/24 09:00 FiO2 45 07/04/24 07:08 Oxygen Flow Rate (L/min) 35 Oxygen Delivery Method Airvo Weight: 221 lb 9.033 oz Body Mass Index (BMI) 33.5 Intake & Output: Intake and Output for Last 24 Hours 07/03/24 07/04/24 07/05/24 03:59 03:59 03:59 Intake Total 1000 / 1000 1000 / 1000 100 / 100 Output Total 2400 / 2400 400 / 400 Balance 1000 / 1000 -1400 / -1400 -300 / -300 Lab / Micro Data 07/03/24 06:57 07/04/24 07:09 Labs: Laboratory Results - last 24 hr 07/04/24 07:09: Sodium 137, Potassium 4.2, Chloride 104, Carbon Dioxide 21.0, Anion Gap 11, BUN 26 H, Creatinine 0.80, Estim Creat Clear Calc 95.91, Est GFR (MDRD) Af Amer 122, Est GFR (MDRD) Non-Af 101, BUN/Creatinine Ratio 32.5 H, G lucose 154 H, Calcium 8.7, Phosphorus 3.2, Magnesium 2.2 Micro: Microbiology 07/02/24 19:55 Urine, Random Urine Culture - Final Mixed Gram Pos & Gram Neg Org 07/02/24 18:26 Mucosa - Nose SARS-CoV-2, Influenza & RSV (PCR) - Final Influenzae A Physical Exam Narrative General: Alert, Oriented x3, Cooperative, No apparent distress HEENT: Atraumatic, PERRLA, EOMI, Normocephalic Oral: Moist Mucosa Neck: Supple, No JVD Lungs: Diminished, Normal air movement, No rhonchi, scattered wheeze, No rales Cardiovascular: Tachycardic, Regular Rhythm, Normal S1, Normal S2, No murmurs Abdomen: Soft, Non Tender, Non-Distended, No Hepato-splenomegaly Extremities: No edema, Capillary Refill Less than 3 Seconds Skin: No rashes, No breakdown Musculoskeletal: No Tenderness to Palpation of Joints or Extremities Neurological: No focal neurological deficits, sensory exam intact to light touch and pain, continues with right-sided weakness from a previous stroke Psych/Mental Status: Normal Affect, Appropriate Assessment & Plan Assessment/Plan (1) Influenza: (2) Respiratory insufficiency: PLAN: Plan 1. Acute respiratory insufficiency secondary to influenza A in the setting of COPD ? Continue with inhalers and steroids, increased prednisone to Solu-Medrol ? Continue with Tamiflu ? Currently on Airvo, will continue with diuresis as needed ? If no significant improvement over the next 24 hours we will repeat imaging 2. Essential HTN/HLD/history of CVA ? Blood pressures are stable ? Continue with his home medications ? Will monitor make adjustments as necessary 3. Depression/anxiety ? Stable ? Continue with his home medications DVT: Lovenox Charges/Coding Visit Charges Inpatient E&M: 49115 Subs Hosp L2
[2024-07-04] MEDS: Furosemide 40 MG/4 ML Vial IV (10:54)
[2024-07-04] MEDS: traZODone 50 MG Tablet 25 MG PO (23:08)
[2024-07-04] MEDS: Metoprolol(XL)Succ 25 MG Tablet PO (23:08)
[2024-07-04] MEDS: Atorvastatin Calcium 80 MG Tablet PO (23:19)
[2024-07-05] VITALS (14 sets, daily range): BP systolic 128–140; BP diastolic 70–76; PULSE 72–99; RESP 18–22; TEMP 36.5–36.8; O2SAT 93–95; BMI 33.8
[2024-07-05] MEDS: 0.9% Saline Lock 10 ML Syringe IV ×4 (05:37→23:58)
[2024-07-05] MEDS: Ipratropium/Albuterol Sulfate 3 ML AMPUL.NEB INHALATION ×3 (06:56→19:06)
[2024-07-05 07:33] LABS: Anion Gap 8 (5-15); BUN 27 mg/dL (7-18); BUN/Creat Ratio 31.8 RATIO (10-20); Calcium,Total 9.2 mg/dL (8.5-10.1); Chloride 104 mmol/L (98-107); Creatinine, Serum 0.85 mg/dL (0.70-1.30); EST Glomerular Filtration Rate 94 mL/min (>60); Est Glom Filt Rate - Afr Amer 114 mL/min (>60); Estimated Creatinine Clearance 90.67 ml/min; Glucose 172 mg/dL (74-106); Potassium 4.3 mmol/L (3.5-5.1); Sodium Level 135 mmol/L (136-145)
[2024-07-05] MEDS: Furosemide 40 MG/4 ML Vial IV (08:59)
[2024-07-05] MEDS: Zinc Sulfate 50 mg zinc (220 mg) ORAL capsule PO (09:00)
[2024-07-05] MEDS: Oseltamivir Phosphate 75 MG Capsule PO ×2 (09:00→23:56)
[2024-07-05] MEDS: Ascorbic Acid 500 MG Tablet 1000 MG PO ×2 (09:00→16:52)
[2024-07-05] MEDS: Venlafaxine XR 75 MG Capsule PO (09:00)
[2024-07-05] MEDS: Potassium Chloride Oral Tablet 20 MEQ 40 MEQ PO (09:00)
[2024-07-05] MEDS: Baclofen 10 MG Tablet PO ×2 (09:00→23:57)
[2024-07-05] MEDS: Aspirin 81 MG TAB.CHEW PO (09:00)
[2024-07-05] MEDS: Cholecalciferol (Vit D3) 125 MCG CAPSULE (5,000 UNITS) PO (09:00)
[2024-07-05] MEDS: amLODIPine 5 MG Tablet PO ×2 (09:00→23:56)
[2024-07-05] MEDS: Losartan Potassium 100 MG Tablet PO (09:00)
[2024-07-05] MEDS: Psyllium 1 PACKET PO (09:00)
[2024-07-05] MEDS: Thiamine Hydrochloride 100 MG Tablet PO (09:00)
[2024-07-05] MEDS: Enoxaparin 40 MG/0.4 ML Syringe SC (09:01)
[2024-07-05] MEDS: Azithromycin 250 MG Tablet PO (09:02)
--- NOTE | 2024-07-05 11:42 | CASEMGMT ---
Discharge Planning Updates sent to [facility] with note that pt may discharge as early as tomorrow. Makenan Calabrese DC Planning Asst.
--- NOTE | 2024-07-05 11:54 | PN.HOSP_ITS ---
Subjective Subjective Breathing is better we will continue with as needed Lasix, Objective Data Objective Data Vital Signs: Vital Signs Temp Pulse Resp BP Pulse Ox O2 Del Method O2 Flow Rate 98.3 F 99 18 140/75 H 94 Nasal Cannula 5 07/05/24 11:30 07/05/24 11:30 07/05/24 11:30 07/05/24 11:30 07/05/24 11:30 07/05/24 11:30 07/05/24 11:30 FiO2 45 07/04/24 07:08 Oxygen Flow Rate (L/min) 5 Oxygen Delivery Method Nasal Cannula Weight: 223 lb 8.78 oz Body Mass Index (BMI) 33.8 Intake & Output: Intake and Output for Last 24 Hours 07/04/24 07/05/24 07/06/24 03:59 03:59 03:59 Intake Total 1000 / 1000 340 / 340 300 / 300 Output Total 2400 / 2400 2800 / 2800 Balance -1400 / -1400 -2460 / -2460 300 / 300 Lab / Micro Data 07/03/24 06:57 07/05/24 04:38 Labs: Laboratory Results - last 24 hr 07/05/24 04:38: Sodium 135 L, Potassium 4.3, Chloride 104, Carbon Dioxide 23.0, Anion Gap 8, BUN 27 H, Creatinine 0.85, Estim Creat Clear Calc 90.67, Est GFR (MDRD) Af Amer 114, Est GFR (MDRD) Non-Af 94, BUN/Creatinine Ratio 31.8 H, G lucose 172 H, Calcium 9.2 Micro: Microbiology 07/02/24 20:55 Blood Culture (Wb) - Left Forearm Blood Culture - Preliminary No growth in 48 hours. 07/02/24 18:21 Blood Culture (Wb) - Left Forearm Blood Culture - Preliminary No growth in 48 hours. 07/02/24 19:55 Urine, Random Urine Culture - Final Mixed Gram Pos & Gram Neg Org 07/02/24 18:26 Mucosa - Nose SARS-CoV-2, Influenza & RSV (PCR) - Final Influenzae A Physical Exam Narrative General: Alert, Oriented x3, Cooperative, No apparent distress HEENT: Atraumatic, PERRLA, EOMI, Normocephalic Oral: Moist Mucosa Neck: Supple, No JVD Lungs: Diminished, Normal air movement, No rhonchi, no wheeze, No rales Cardiovascular: Tachycardic, Regular Rhythm, Normal S1, Normal S2, No murmurs Abdomen: Soft, Non Tender, Non-Distended, No Hepato-splenomegaly Extremities: No edema, Capillary Refill Less than 3 Seconds Skin: No rashes, No breakdown Musculoskeletal: No Tenderness to Palpation of Joints or Extremities Neurological: No focal neurological deficits, sensory exam intact to light touch and pain, continues with right-sided weakness from a previous stroke Psych/Mental Status: Normal Affect, Appropriate Assessment & Plan Assessment/Plan (1) Influenza: (2) Respiratory insufficiency: PLAN: Plan 1. Acute respiratory insufficiency secondary to influenza A in the setting of COPD ? Continue with inhalers and steroids, increased prednisone to Solu-Medrol ? Continue with Tamiflu ? Improved nasal cannula, will continue with diuresis as needed ? If no significant improvement over the next 24 hours we will repeat imaging 2. Essential HTN/HLD/history of CVA ? Blood pressures are stable ? Continue with his home medications ? Will monitor make adjustments as necessary 3. Depression/anxiety ? Stable ? Continue with his home medications DVT: Lovenox Charges/Coding Visit Charges Inpatient E&M: 50618 Subs Hosp L2
[2024-07-05 14:51] LABS: Magnesium 2.4 mg/dL (1.6-2.6)
[2024-07-05] MEDS: Ensure Plus High Protein 120 ML LIQUID PO ×2 (16:52→23:55)
[2024-07-05] MEDS: Atorvastatin Calcium 80 MG Tablet PO (23:57)
[2024-07-05] MEDS: Metoprolol(XL)Succ 25 MG Tablet PO (23:58)
[2024-07-05] MEDS: traZODone 50 MG Tablet 25 MG PO (23:59)
[2024-07-06] VITALS (13 sets, daily range): BP systolic 124–147; BP diastolic 56–76; PULSE 87–103; RESP 18–20; TEMP 36.4–36.8; O2SAT 92–96; BMI 33.8
[2024-07-06] MEDS: 0.9% Saline Lock 10 ML Syringe IV ×4 (05:54→21:39)
[2024-07-06 07:28] LABS: Absolute Lymphocyte Count 1.39 X10^3/uL (0.83-4.51); Absolute Neutrophil Count 8.4 X10^3/uL (2.0-7.7); Basophil# 0.01 X10^3/uL; Basophil% 0.1 % (0-1); Hematocrit 39.2 % (40-54); Lymphocyte # 1.39 X10^3/ul (0.83-4.51); Mean Corp Hgb Conc 35.7 g/dL (32-36); Mean Corpuscular Hgb 31.9 pg (27.0-32.0); Mean Corpuscular Volume 89.3 fL (80-94); Mean Platelet Vol. 9.4 fl (6.2-12.0); Monocyte# 0.81 X10^3/uL; Monocyte% 7.6 % (0-10); NRBC Flagged by Analyzer 0 % (0-5); Neutrophil # 8.44 X10^3/uL (2.7-7.7); Neutrophil % 78.9 % (47-70); Platelet Count 365 K/mm3 (150-450); RBC Distribution Width CV 11.2 % (11.6-14.6); RBC Distribution Width SD 36.3 fl (35.1-43.9); Red Blood Count 4.39 M/mm3 (4.6-6.2); White Blood Count 10.7 K/mm3 (4.4-11.0)
[2024-07-06] MEDS: Ipratropium/Albuterol Sulfate 3 ML AMPUL.NEB INHALATION ×3 (07:44→18:59)
[2024-07-06 07:57] LABS: Anion Gap 3 (5-15); BUN 26 mg/dL (7-18); BUN/Creat Ratio 33.8 RATIO (10-20); Chloride 106 mmol/L (98-107); Creatinine, Serum 0.77 mg/dL (0.70-1.30); EST Glomerular Filtration Rate 105 mL/min (>60); Est Glom Filt Rate - Afr Amer 127 mL/min (>60); Estimated Creatinine Clearance 96.33 ml/min; Glucose 172 mg/dL (74-106); Potassium 4.3 mmol/L (3.5-5.1); Sodium Level 138 mmol/L (136-145)
[2024-07-06] MEDS: Potassium Chloride Oral Tablet 20 MEQ 40 MEQ PO (08:47)
[2024-07-06] MEDS: Cholecalciferol (Vit D3) 125 MCG CAPSULE (5,000 UNITS) PO (08:47)
[2024-07-06] MEDS: Thiamine Hydrochloride 100 MG Tablet PO (08:47)
[2024-07-06] MEDS: Azithromycin 250 MG Tablet PO (08:47)
[2024-07-06] MEDS: Ascorbic Acid 500 MG Tablet 1000 MG PO ×2 (08:48→16:38)
[2024-07-06] MEDS: amLODIPine 5 MG Tablet PO ×2 (08:48→21:38)
[2024-07-06] MEDS: Psyllium 1 PACKET PO (08:48)
[2024-07-06] MEDS: Enoxaparin 40 MG/0.4 ML Syringe SC (08:48)
[2024-07-06] MEDS: Losartan Potassium 100 MG Tablet PO (08:48)
[2024-07-06] MEDS: Aspirin 81 MG TAB.CHEW PO (08:48)
[2024-07-06] MEDS: Baclofen 10 MG Tablet PO ×2 (08:49→21:38)
[2024-07-06] MEDS: Venlafaxine XR 75 MG Capsule PO (08:49)
[2024-07-06] MEDS: Oseltamivir Phosphate 75 MG Capsule PO ×2 (08:49→21:38)
[2024-07-06] MEDS: Furosemide 40 MG/4 ML Vial IV (08:49)
[2024-07-06] MEDS: Ensure Plus High Protein 120 ML LIQUID PO ×4 (08:49→21:37)
[2024-07-06] MEDS: Zinc Sulfate 50 mg zinc (220 mg) ORAL capsule PO (08:50)
--- NOTE | 2024-07-06 10:31 | ECHOCS_ITS ---
Reason For Study: PALPITATIONS Procedure This was a 2D Doppler, Color Flow transthoracic echocardiogram. The study was technically difficult. Contrast injection was performed. Exam performed portable in patient room. Left Ventricle Normal LV size. The estimated ejection fraction is 60 %. No evidence for diastolic dysfunction. No regional wall motion abnormalities noted. Right Ventricle Normal RV size. Normal systolic function. Atria The left and right atria are normal. No doppler evidence for ASD. Mitral Valve There is no mitral valve stenosis. No mitral valve insufficiency. Tricuspid Valve There is no tricuspid stenosis. Unable to estimate RV systolic pressure due to inadequate jet, pulmonary artery pressure probably normal. Aortic Valve Trisinus/trileaflet aortic valve. There is no aortic stenosis. No aortic valve insufficiency. Pulmonic Valve There is no pulmonic valvular stenosis. No pulmonic valve insufficiency. Great Vessels Normal aortic root. Pericardium/Pleural No pericardial effusion. Medication Diluted definity 1ml given slow IV push to enhance endocardial definition. MMode/2D Measurements & Calculations LVOT diam: 2.0 cm asc Aorta Diam: 3.0 cm LAV(MOD-bp): 37.9 ml LVOT area: 3.2 cm2 LAV(MOD-bp) Indexed: 17.7 ml/m2 LAV(MOD-sp2): 31.2 ml LAV(MOD-sp4): 42.0 ml SV(MOD-sp4): 53.9 ml SV(sp4-el): 58.2 ml LVAd ap4: 32.8 cm2 LVLd ap4: 8.4 cm SI(MOD-sp4): 25.2 ml/m2 EDV(MOD-sp4): 101.9 ml EDV(sp4-el): 108.5 ml LVAs ap4: 20.1 cm2 LVLs ap4: 6.8 cm ESV(MOD-sp4): 48.0 ml ESV(sp4-el): 50.3 ml EF(MOD-sp4): 52.9 % EF(sp4-el): 53.6 % TAPSE: 1.9 cm LA A4 area: 17.1 cm2 RA A4 area: 7.9 cm2 Time Measurements MV dec time: 0.13 sec Doppler Measurements & Calculations MV E max aroldo: 63.6 cm/sec Lat Peak E' Aroldo: 6.3 cm/sec Med Peak E' Aroldo: 5.6 cm/sec MV A max aroldo: 113.4 cm/sec E/E' lat: 10.0 E/E' med: 11.3 MV E/A: 0.56 MV V2 max: 113.8 cm/sec MV dec slope: 471.8 cm/sec2 Ao V2 max: 146.5 cm/sec MV max P.2 mmHg Ao max P.6 mmHg MV V2 mean: 68.3 cm/sec Ao V2 mean: 101.4 cm/sec MV mean P.2 mmHg Ao mean P.7 mmHg MV V2 VTI: 32.0 cm Ao V2 VTI: 29.0 cm MVA(VTI): 2.6 cm2 AV (velocity ratio): 0.90 ALEXEY(I,D): 2.9 cm2 ALEXEY(V,D): 2.8 cm2 LV V1 max: 128.1 cm/sec SV(LVOT): 84.5 ml LV V1 max P.6 mmHg LV V1 mean P.7 mmHg LV V1 mean: 91.3 cm/sec LV V1 VTI: 26.3 cm ECHO/Echo Complete W/ Contrast Interpretation Summary The estimated ejection fraction is 60 %. No evidence for diastolic dysfunction. Ordering Physician: Epi Tirado Referring Physician: Tom Escobedo Performed By: Josselyn Cortez and Student
--- NOTE | 2024-07-06 16:44 | PCM.PN.HOSP ---
Subjective Subjective Doing well, no issues overnight Objective Data Objective Data Vital Signs: Vital Signs Temp Pulse Resp BP Pulse Ox O2 Del Method O2 Flow Rate 97.8 F 90 18 124/65 H 96 Nasal Cannula 5 07/06/24 14:59 07/06/24 14:59 07/06/24 14:59 07/06/24 14:59 07/06/24 14:59 07/06/24 14:59 07/06/24 14:59 FiO2 45 07/04/24 07:08 Oxygen Flow Rate (L/min) 5 Oxygen Delivery Method Nasal Cannula Weight: 223 lb 8.78 oz Body Mass Index (BMI) 33.8 Intake & Output: Intake and Output for Last 24 Hours 07/05/24 07/06/24 07/07/24 03:59 03:59 03:59 Intake Total 340 / 340 1450 / 1450 Output Total 2800 / 2800 500 / 500 400 / 400 Balance -2460 / -2460 950 / 950 -400 / -400 Lab / Micro Data 07/06/24 07:14 07/06/24 07:14 Labs: Laboratory Results - last 24 hr 07/06/24 07:14: WBC 10.7, RBC 4.39 L, Hgb 14.0, Hct 39.2 L, MCV 89.3, MCH 31.9, MCHC 35.7, RDW Std Deviation 36.3, RDW Coeff of Sangeeta 11.2 L, Plt Count 365, MPV 9.4, Immature Gran % (Auto) 0.400, Neut % (Auto) 78.9 H, Lymph % (Auto) 13.0 L, Sherman % (Auto) 7.6, Eos % (Auto) 0.0, Baso % (Auto) 0.1, Absolute Neuts (auto) 8.4 H, Absolute Lymphs (auto) 1.39, Nucleated RBC % 0, Sodium 138, Potassium 4.3, Chloride 106, Carbon Dioxide 29.0, Anion Gap 3 L, BUN 26 H, Creatinine 0.77, Estim Creat Clear Calc 96.33, Est GFR (MDRD) Af Amer 127, Est GFR (MDRD) Non-Af 105, BUN/Creatinine Ratio 33.8 H, Glucose 172 H, Calcium 9.0 Micro: Microbiology 07/02/24 20:55 Blood Culture (Wb) - Left Forearm Blood Culture - Preliminary No growth in 48 hours. 07/02/24 18:21 Blood Culture (Wb) - Left Forearm Blood Culture - Preliminary No growth in 48 hours. 07/02/24 19:55 Urine, Random Urine Culture - Final Mixed Gram Pos & Gram Neg Org 07/02/24 18:26 Mucosa - Nose SARS-CoV-2, Influenza & RSV (PCR) - Final Influenzae A Physical Exam Narrative General: Alert, Oriented x3, Cooperative, No apparent distress HEENT: Atraumatic, PERRLA, EOMI, Normocephalic Oral: Moist Mucosa Neck: Supple, No JVD Lungs: Diminished, Normal air movement, No rhonchi, no wheeze, No rales Cardiovascular: Regular rate, Regular Rhythm, Normal S1, Normal S2, No murmurs Abdomen: Soft, Non Tender, Non-Distended, No Hepato-splenomegaly Extremities: No edema, Capillary Refill Less than 3 Seconds Skin: No rashes, No breakdown Musculoskeletal: No Tenderness to Palpation of Joints or Extremities Neurological: No focal neurological deficits, sensory exam intact to light touch and pain, continues with right-sided weakness from a previous stroke Psych/Mental Status: Normal Affect, Appropriate Assessment & Plan Assessment/Plan (1) Influenza: (2) Respiratory insufficiency: PLAN: Plan 1. Acute respiratory insufficiency secondary to influenza A in the setting of COPD ? Continue with inhalers and steroids, increased prednisone to Solu-Medrol ? Continue with Tamiflu ? Improved nasal cannula, will continue with diuresis as needed 2. Essential HTN/HLD/history of CVA/nonsustained V. tach ? Blood pressures are stable ? Continue with his home medications ? Will monitor make adjustments as necessary ? He has had a couple episodes of nonsustained V. tach, electrolytes are stable and echo was pending 3. Depression/anxiety ? Stable ? Continue with his home medications DVT: Lovenox Charges/Coding Visit Charges Inpatient E&M: 80773 Subs Hosp L2
--- NOTE | 2024-07-06 17:11 | CASEMGMT ---
Social Work- SW collaborated with physician on d/c planning. Pt updated on plans to potentially d/c tomorrow. Pt agreeable to return to [facility]. PROSPER Lora
[2024-07-06 18:25] LABS: Absolute Lymphocyte Count 1.14 X10^3/uL (0.83-4.51); Absolute Neutrophil Count 9.6 X10^3/uL (2.0-7.7); Basophil# 0.01 X10^3/uL; Basophil% 0.1 % (0-1); Hemoglobin 13.7 g/dL (13.0-16.5); Lymphocyte # 1.14 X10^3/ul (0.83-4.51); Lymphocyte % 9.7 % (19-41); Mean Corp Hgb Conc 36.1 g/dL (32-36); Mean Corpuscular Volume 88.8 fL (80-94); Mean Platelet Vol. 9.3 fl (6.2-12.0); Monocyte% 8.5 % (0-10); NRBC Flagged by Analyzer 0 % (0-5); Neutrophil # 9.55 X10^3/uL (2.7-7.7); Neutrophil % 81.4 % (47-70); Platelet Count 386 K/mm3 (150-450); RBC Distribution Width CV 11.2 % (11.6-14.6); Red Blood Count 4.28 M/mm3 (4.6-6.2); White Blood Count 11.7 K/mm3 (4.4-11.0)
[2024-07-06] MEDS: Acetaminophen 325 MG Tablet 650 MG PO (20:12)
[2024-07-06] MEDS: Atorvastatin Calcium 80 MG Tablet PO (21:38)
[2024-07-06] MEDS: Metoprolol(XL)Succ 25 MG Tablet PO (21:38)
[2024-07-06] MEDS: traZODone 50 MG Tablet 25 MG PO (21:38)
[2024-07-07] VITALS (8 sets, daily range): BP systolic 132–151; BP diastolic 63–76; PULSE 87–98; RESP 18–20; TEMP 36.4–36.8; O2SAT 90–96
[2024-07-07] MEDS: 0.9% Saline Lock 10 ML Syringe IV ×3 (06:20→12:56)
[2024-07-07 07:03] LABS: Anion Gap 4 (5-15); BUN 25 mg/dL (7-18); BUN/Creat Ratio 30.5 RATIO (10-20); Chloride 102 mmol/L (98-107); Creatinine, Serum 0.82 mg/dL (0.70-1.30); EST Glomerular Filtration Rate 98 mL/min (>60); Est Glom Filt Rate - Afr Amer 119 mL/min (>60); Estimated Creatinine Clearance 93.98 ml/min; Glucose 177 mg/dL (74-106); Potassium 4.3 mmol/L (3.5-5.1); Sodium Level 137 mmol/L (136-145)
[2024-07-07] MEDS: Ipratropium/Albuterol Sulfate 3 ML AMPUL.NEB INHALATION (07:05)
[2024-07-07] MEDS: Potassium Chloride Oral Tablet 20 MEQ 40 MEQ PO (09:01)
[2024-07-07] MEDS: Enoxaparin 40 MG/0.4 ML Syringe SC (09:01)
[2024-07-07] MEDS: Polyethylene Glycol 3350 17 GM PACKET PO (09:02)
[2024-07-07] MEDS: Venlafaxine XR 75 MG Capsule PO (09:03)
[2024-07-07] MEDS: Thiamine Hydrochloride 100 MG Tablet PO (09:03)
[2024-07-07] MEDS: Aspirin 81 MG TAB.CHEW PO (09:03)
[2024-07-07] MEDS: Ascorbic Acid 500 MG Tablet 1000 MG PO (09:03)
[2024-07-07] MEDS: Azithromycin 250 MG Tablet PO (09:03)
[2024-07-07] MEDS: Cholecalciferol (Vit D3) 125 MCG CAPSULE (5,000 UNITS) PO (09:03)
[2024-07-07] MEDS: Losartan Potassium 100 MG Tablet PO (09:03)
[2024-07-07] MEDS: Zinc Sulfate 50 mg zinc (220 mg) ORAL capsule PO (09:03)
[2024-07-07] MEDS: Ensure Plus High Protein 120 ML LIQUID PO ×2 (09:04→12:56)
[2024-07-07] MEDS: amLODIPine 5 MG Tablet PO (09:04)
[2024-07-07] MEDS: Oseltamivir Phosphate 75 MG Capsule PO (09:04)
[2024-07-07] MEDS: Baclofen 10 MG Tablet PO (09:04)
[2024-07-07] MEDS: Psyllium 1 PACKET PO (09:04)
[2024-07-07] MEDS: Furosemide 40 MG/4 ML Vial IV (10:10)
--- NOTE | 2024-07-07 11:16 | PCM.TXEXTCAR ---
Diet Diet Order/Speech Therapy: 07/05/24 15:47 Diet: Regular - General Food consistency:: Regular Liquid Consistency:: Regular/Thin Routine Orders/Code Status Routine Lab Work: CBC and BMP Code Status: Full Code Therapies Physical Therapy: Eval and Treat Occupational Therapy: Eval and Treat Problem/Diagnosis (1) Influenza: Status: Acute Code(s): J11.1 - Influenza due to unidentified influenza virus with other respiratory manifestations (2) Respiratory insufficiency: Status: Acute Code(s): R06.89 - Other abnormalities of breathing Plan 1. Acute respiratory insufficiency secondary to influenza A in the setting of COPD ? Continue with inhalers and steroids, increased prednisone to Solu-Medrol ? Continue with Tamiflu ? Improved nasal cannula, will continue with diuresis as needed 2. Essential HTN/HLD/history of CVA/nonsustained V. tach ? Blood pressures are stable ? Continue with his home medications ? Will monitor make adjustments as necessary ? He has had a couple episodes of nonsustained V. tach, electrolytes are stable and echo was pending 3. Depression/anxiety ? Stable ? Continue with his home medications DVT: Lovenox Allergies/Procedures Done in Hospital Allergies No Known Allergies Allergy (Verified 07/02/24 22:23) Procedures: 2-D Echocardiogram Type of Care/Length of Stay Estimated LOS: Convalescent Care Less Than 30 days Type of Care Needed: Skilled Rehab Potential: Fair Prognosis: Fair Additional Orders/Day of Discharge Day of Discharge: 07/07/24 Dietary and Speech Recommendations Dietitian Recommendations/Changes: Will liberalize diet to Regular to optimize oral intakes. Will order 120mL Ensure Plus High Protein vanilla 4x with medpass Discharge Plan Admission Admit Date/Time: 07/02/24 20:12 Attending Provider: Epi Tirado Primary Care Provider: Levon Duke Consulting Providers: Tom Escobedo Discharge Orders/Prescriptions Prescriptions: New polyethylene glycol 3350 [Miralax] 17 gram/dose powder 17 g PO DAILY Qty: 119 0RF Continued albuterol sulfate 2.5 mg /3 mL (0.083 %) solution for nebulization 2.5 mg inhalation TID PRN (Reason: shortness of breath or wheezing) prednisone 20 mg tablet 40 mg PO DAILY thiamine HCl (vitamin B1) 100 mg tablet 100 mg PO DAILY trazodone 50 mg tablet 25 mg PO QHS amlodipine 5 mg tablet 5 mg PO BID aspirin 81 mg capsule 81 mg PO DAILY atorvastatin 80 mg tablet 80 mg PO QHS baclofen 10 mg tablet 10 mg PO BID baclofen 5 mg tablet 5 mg PO DAILY Rx Instructions: every afternoon Combivent Respimat 20-100 mcg/actuation mist 1 puff inhalation Q4H PRN (Reason: shortness of breath or wheezing) psyllium Packet 1 packet PO DAILY Rx Instructions: mix into at least 8 oz of water or juice before administering venlafaxine [Effexor XR] 37.5 mg capsule,extended release 24hr 37.5 mg PO DAILY venlafaxine [Effexor XR] 75 mg capsule,extended release 24hr 75 mg PO DAILY furosemide [Lasix] 40 mg tablet 40 mg PO DAILY losartan 100 mg tablet 100 mg PO DAILY metoprolol succinate 25 mg tablet extended release 24 hr 25 mg PO QHS potassium chloride 20 mEq tablet extended release 40 meq PO DAILY Discontinued azithromycin [Zithromax] 250 mg tablet 250 mg PO DAILY Rx Instructions: start on day 2 of therapy Referrals / Follow Up: Levon Duke MD [Primary Care Provider] - Disposition Disposition (needs filled in before D/C Order can be placed): Nursing Home Facility
--- NOTE | 2024-07-07 12:43 | CASEMGMT ---
Discharge Planning Discharge orders, signed med list, and transport time sent to [facility] via [facility]. Physicians will transport patient by wheelchair at 1:30p. Nursing, SW, patient, and his son (Claudio) updated. Makenna Calabrese DC Planning Asst.
--- NOTE | 2024-07-07 12:43 | CASEMGMT ---
Social Work Precert has been obtained.? Physician updated and pt is ready for discharge today.? DCA and bedside nurse notified of discharge. Disposition:[facility], skilled level of care under convalescent stay PROSPER Lora
--- NOTE | 2024-07-07 13:40 | DS.PCM_ITS ---
Providers Date of Admission: 07/02/24 Primary Care Physician: Dr. Levon Duke MD Reason For Visit: ACUTE INFLUENZA A AND RESPIRATORY INSUFFICIENCY Diagnosis Discharge Diagnosis (1) Influenza: Status: Acute Code(s): J11.1 - Influenza due to unidentified influenza virus with other respiratory manifestations (2) Respiratory insufficiency: Status: Acute Code(s): R06.89 - Other abnormalities of breathing Medications at Discharge Home Medications albuterol sulfate 2.5 mg/3 mL (0.083 %) solution for nebulization 2.5 mg inhalation TID PRN shortness of breath or wheezing 07/02/24 amlodipine 5 mg tablet 5 mg PO BID 07/02/24 aspirin 81 mg capsule 81 mg PO DAILY 07/02/24 atorvastatin 80 mg tablet 80 mg PO QHS 07/02/24 baclofen 10 mg tablet 10 mg PO BID 07/02/24 baclofen 5 mg tablet 5 mg PO DAILY 07/02/24 furosemide 40 mg tablet (Lasix) 40 mg PO DAILY 07/02/24 ipratropium 20 mcg-albuterol 100 mcg/actuation mist for inhalation (Combivent Respimat) 1 puff inhalation Q4H PRN shortness of breath or wheezing 07/02/24 losartan 100 mg tablet 100 mg PO DAILY 07/02/24 metoprolol succinate 25 mg tablet,extended release 24 hr 25 mg PO QHS 07/02/24 potassium chloride 20 mEq tablet,extended release 40 meq PO DAILY 07/02/24 prednisone 20 mg tablet 40 mg PO DAILY 07/02/24 psyllium 1 packet PO DAILY 07/02/24 thiamine HCl (vitamin B1) 100 mg tablet 100 mg PO DAILY 07/02/24 trazodone 50 mg tablet 25 mg PO QHS 07/02/24 venlafaxine 37.5 mg capsule,extended release 24 hr (Effexor XR) 37.5 mg PO DAILY 07/02/24 venlafaxine 75 mg capsule,extended release 24 hr (Effexor XR) 75 mg PO DAILY 07/02/24 polyethylene glycol 3350 17 gram/dose oral powder (Miralax) 17 g PO DAILY #119 grams 07/07/24 Hospital Course Operations None Procedures 2-D Echocardiogram Summary of Care Provided Minutes Spent on Discharge: 35 Hospital Course: Per HPI: MONICA AMAYA, is a 73 M with a past medical history of essential hypertension; on Lasix, Losartan, Metoprolol and Amlodipine, hyperlipidemia, overweight; with BMI of 28.7 this admission, former tobacco abuse, depression with anxiety; on Venlafaxine and Trazodone, OA; with chronic pain and history of CVA; with residual Right-sided weakness and mobilizing in a wheelchair currently residing at [facility] who presents to [facility] ER complaining of generalized weakness and malaise. Mr. Amaya reports his symptoms began approximately 4-5 days prior to admission with the gradual-onset of progressively worsening cough with generalized weakness and malaise with fatigue and increasing body aches with patient recently started on oral Azithromycin and Prednisone for suspected bronchitis. He then developed a nonproductive cough with a low-grade fever of ~99.7 degrees Fahrenheit with the staff at his F noting hypoxia in the ~85% range on RA so he was sent in to the ER for further evaluation and treatment. He also admits having rigors and sweats with more back pain and leg pain than normal. He denies associated nausea, vomiting, diarrhea, constipation, chest pain, palpitations, heart racing, headache, new focal neurologic deficits or needing supplemental oxygen recently. In the ER his viral PCR assay returned positive for Influenza A complicated by clinical evidence of Acute Respiratory Insufficiency and laboratory evidence of Dehydration; with elevated BUN/creatinine ratio of 23.7 present on admission compounded by Generalized Weakness with Fatigue and Malaise in the setting of known prior CVA; with residual Right-sided weakness and OA with Chronic Pain exacerbated by acute viral illness and he was then admitted to the general medical floor with telemetric monitoring under droplet precautions for ongoing care for a stay that is expected to extend beyond 48 hours. Hospital Course: 1. Acute respiratory insufficiency secondary influenza A in the setting of COPD?73-year-old male presented to the hospital with increasing shortness of breath and oxygen requirements. He was diagnosed with influenza A and was started on Tamiflu he was unfortunately given some fluid which led to a little bit of fluid overload and pulmonary edema. He had to have his oxygen increased to Airvo at 1 point though never really demonstrated significant respiratory distress. He was started on IV Lasix and had significant improvement in his respiratory status on the day of discharge was maintaining his oxygen sats on room air to 93%. He did complete a 5-day course of Tamiflu and can resume his home steroids [facility]. No antibiotics are necessary at this time. I discussed with him the plan for discharge today he expressed understanding is benefits going back to the nursing and would like to go today. Of note he did have an echocardiogram which was unremarkable, and this was obtained secondary to having several episodes of nonsustained V. tach, electrolytes were all normal and structurally his heart appears okay therefore I recommend outpatient continued monitoring. 2. Essential hypertension, hyperlipidemia, history of CVA, depression, anxiety are all chronic medical conditions which complicate his care. His home medications were continued where appropriate Physical Exam Narrative General: Alert, Oriented x3, Cooperative, No apparent distress HEENT: Atraumatic, PERRLA, EOMI, Normocephalic Oral: Moist Mucosa Neck: Supple, No JVD Lungs: Diminished, Normal air movement, No rhonchi, no wheeze, No rales Cardiovascular: Regular rate, Regular Rhythm, Normal S1, Normal S2, No murmurs Abdomen: Soft, Non Tender, Non-Distended, No Hepato-splenomegaly Extremities: No edema, Capillary Refill Less than 3 Seconds Skin: No rashes, No breakdown Musculoskeletal: No Tenderness to Palpation of Joints or Extremities Neurological: No focal neurological deficits, sensory exam intact to light touch and pain, continues with right-sided weakness from a previous stroke Psych/Mental Status: Normal Affect, Appropriate Weight / BMI Weight Weight: 223 lb 8.78 oz Body Mass Index (BMI) 33.8 ABG / Lab / Microbiology Data 07/06/24 18:15 07/07/24 06:21 Laboratory: Laboratory Results - last 24 hr 07/06/24 18:15: WBC 11.7 H, RBC 4.28 L, Hgb 13.7, Hct 38.0 L, MCV 88.8, MCH 32.0, MCHC 36.1 H, RDW Std Deviation 36.0, RDW Coeff of Sangeeta 11.2 L, Plt Count 386, MPV 9.3, Immature Gran % (Auto) 0.300, Neut % (Auto) 81.4 H, Lymph % (Auto) 9.7 L, Roberts % (Auto) 8.5, Eos % (Auto) 0.0, Baso % (Auto) 0.1, Absolute Neuts (auto) 9.6 H, Absolute Lymphs (auto) 1.14, Nucleated RBC % 0 07/07/24 06:21: Sodium 137, Potassium 4.3, Chloride 102, Carbon Dioxide 30.0, A nion Gap 4 L, BUN 25 H, Creatinine 0.82, Estim Creat Clear Calc 93.98, Est GFR (MDRD) Af Amer 119, Est GFR (MDRD) Non-Af 98, BUN/Creatinine Ratio 30.5 H, G lucose 177 H, Calcium 9.0 Microbiology: Microbiology 07/02/24 20:55 Blood Culture (Wb) - Left Forearm Blood Culture - Preliminary No growth in 48 hours. 07/02/24 18:21 Blood Culture (Wb) - Left Forearm Blood Culture - Preliminary No growth in 48 hours. 07/02/24 19:55 Urine, Random Urine Culture - Final Mixed Gram Pos & Gram Neg Org 07/02/24 18:26 Mucosa - Nose SARS-CoV-2, Influenza & RSV (PCR) - Final Influenzae A Radiography Diagnostic Testing: Radiology Impression Echocardiogram 07/06/24 10:31 Interpretation Summary The estimated ejection fraction is 60 %. No evidence for diastolic dysfunction. Ordering Physician: Epi Tirado Referring Physician: Tom Escobedo Performed By: Josselyn Cortez and Student Meaningful Use Info Meaningful Use Meaningful Use Diagnoses (Choose all that apply): None applicable Ischemic Stroke Statin Dosing Therapy Reference: STATIN DOSE THERAPY REFERENCE: * Patients > 75 years receive moderate or high dose statin therapy. * Patients 75 years or YOUNGER should receive HIGH intensity statin dose unless contraindicated. You will be required to document reason for non-treatment if statin daily dose does not meet guidelines. HIGH DOSE STATIN THERAPY DAILY Atorvastatin > than or = to 40 mg Rosuvastatin > than or = to 20 mg Amlodipine + Atorvastatin > than or = to 2.5/40 mg Ezetimibe + Simvastatin 10/80 mg Simvastatin 80mg Discharge Plan Admission Admit Date/Time: 07/02/24 20:12 Attending Provider: Epi Tirado Primary Care Provider: Levon Duke Consulting Providers: Tom Escobedo Discharge Orders/Prescriptions Prescriptions: New polyethylene glycol 3350 [Miralax] 17 gram/dose powder 17 g PO DAILY Qty: 119 0RF Continued albuterol sulfate 2.5 mg /3 mL (0.083 %) solution for nebulization 2.5 mg inhalation TID PRN (Reason: shortness of breath or wheezing) prednisone 20 mg tablet 40 mg PO DAILY thiamine HCl (vitamin B1) 100 mg tablet 100 mg PO DAILY trazodone 50 mg tablet 25 mg PO QHS amlodipine 5 mg tablet 5 mg PO BID aspirin 81 mg capsule 81 mg PO DAILY atorvastatin 80 mg tablet 80 mg PO QHS baclofen 10 mg tablet 10 mg PO BID baclofen 5 mg tablet 5 mg PO DAILY Rx Instructions: every afternoon Combivent Respimat 20-100 mcg/actuation mist 1 puff inhalation Q4H PRN (Reason: shortness of breath or wheezing) psyllium Packet 1 packet PO DAILY Rx Instructions: mix into at least 8 oz of water or juice before administering venlafaxine [Effexor XR] 37.5 mg capsule,extended release 24hr 37.5 mg PO DAILY venlafaxine [Effexor XR] 75 mg capsule,extended release 24hr 75 mg PO DAILY furosemide [Lasix] 40 mg tablet 40 mg PO DAILY losartan 100 mg tablet 100 mg PO DAILY metoprolol succinate 25 mg tablet extended release 24 hr 25 mg PO QHS potassium chloride 20 mEq tablet extended release 40 meq PO DAILY Discontinued azithromycin [Zithromax] 250 mg tablet 250 mg PO DAILY Rx Instructions: start on day 2 of therapy Referrals / Follow Up: Levon Duke MD [Primary Care Provider] - Disposition Disposition (needs filled in before D/C Order can be placed): [facility] Charges/Coding Visit Charges Inpatient E&M: 67631 Disch Hosp >30min
== END 2024-07-07 13:42 | disposition skilled nursing facility (03) | DRG 193 ==
LOC: ED 19:59 → MS3 20:22
PROVIDERS: Nurse Practitioner; Admitting Provider Internal Medicine; Emergency Provider Emergency Medicine; PCP Family Medicine; Referring Provider Internal Medicine; Visit Provider Family Medicine
DX: J10.1 Influenza due to other identified influenza virus with other respiratory manifestations (principal); J81.0 Acute pulmonary edema; J96.01 Acute respiratory failure with hypoxia; I69.351 Hemiplegia and hemiparesis following cerebral infarction affecting right dominant side; J44.9 Chronic obstructive pulmonary disease, unspecified; I10 Essential (primary) hypertension; F32.A Depression, unspecified; E86.0 Dehydration; E78.5 Hyperlipidemia, unspecified; M19.90 Unspecified osteoarthritis, unspecified site; F41.9 Anxiety disorder, unspecified; M54.9 Dorsalgia, unspecified; R00.0 Tachycardia, unspecified; G89.29 Other chronic pain; E66.3 Overweight; Z68.28 Body mass index [BMI] 28.0-28.9, adult; Z99.3 Dependence on wheelchair; Z79.82 Long term (current) use of aspirin; Z79.52 Long term (current) use of systemic steroids; Z87.891 Personal history of nicotine dependence
CPT/HCPCS: 36415; 71045; 80048; 80053; 81001; 83605; 83735; 83880; 84100; 84443; 84484; 85025; 85610; 85730; 87040; 87086; 87088; 87631; 93005; 93306; 94640; 94660; 94668; 97162; 97166; 97530; 97535; 99252; 99285; Q9957; A4216; C8929; G0463; J1940

== ENCOUNTER → 2024-12-02 | Outpatient (CLI) | payer MEDICARE, MEDICAID, SELFPAY | END | disposition home or self-care (01) | LOC: LABSPEC 08:52 | PROVIDERS: PCP Family Medicine; Visit Provider Nurse Practitioner Family | DX: R19.7 Diarrhea, unspecified (principal) ==

== ENCOUNTER 2025-08-03 14:36 | Observation (INO) | payer MEDICARE, MEDICAID, SELFPAY ==
[2025-08-03] VITALS (15 sets, daily range): BP systolic 116–152; BP diastolic 61–107; PULSE 88–108; RESP 16–20; TEMP 36.7; O2SAT 95–100; BMI 36.2; BMI 29.3
--- NOTE | 2025-08-03 15:08 | EDS_ITS ---
HPI History of Present Illness Chief Complaint: Neuro S/Sx Informant: patient Onset/Context/Timing Onset: Today Context: Sudden Onset Timing: Intermittent and Lasts (Few minutes) Quality: Unable to speak Location: Speech Worsened by: Nothing Relieved by: Nothing Narrative Narrative: Patient presents with an episode where he had difficulty speaking. Patient states it began today after eating lunch. Patient states the aide helped him back into his bed and he was unable to speak at that time. Patient states that this lasted a few minutes and then resolved. Currently, patient states his speech is back to his baseline. Patient denies any numbness or weakness. Olivier juárez denies any headaches. Patient states he has had a prior stroke with right-sided weakness. Patient admits to some mild neck pain. Patient denies any chest pain or shortness of breath. Patient denies any nausea or vomiting. 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 Cerebral infarction, unspecified Home Medications ?Medication ?Instructions ?Recorded ?Last Taken ?Type albuterol sulfate 2.5 mg/3 mL 2.5 mg inhalation TID IA N 07/02/24 Unknown History (0.083 %) solution for nebulization shortness of breat h or wheezing amlodipine 5 mg tablet 5 mg PO BID 07/02/24 Unknown History aspirin 81 mg capsule 81 mg PO DAILY 07/02/24 Unkn own History atorvastatin 80 mg tablet 80 mg PO QHS 07/02/24 Unknow n History baclofen 10 mg tablet 10 mg PO BID 07/02/24 Unknow n History baclofen 5 mg tablet 5 mg PO DAILY 07/02/24 Unkno wn History furosemide 40 mg tablet (Lasix) 40 mg PO DAILY 4 Unknown History ipratropium 20 mcg-albuterol 100 1 puff inhalation Q4H PRN 07/02/24 Unknown History mcg/actuation mist for inhalation shortness of breath or wheezing (Combivent Respimat) losartan 100 mg tablet 100 mg PO DAILY 07/02/24 Unk nown History metoprolol succinate 25 mg 25 mg PO QHS 07/02/24 Unkno wn History tablet,extended release 24 hr potassium chloride 20 mEq 40 meq PO DAILY 07/02/24 Unk nown History tablet,extended release psyllium 1 packet PO DAILY 07/02/24 U nknown History thiamine HCl (vitamin B1) 100 mg 100 mg PO DAILY 07/02 Unknown History tablet trazodone 50 mg tablet 25 mg PO QHS 07/02/24 Unknow n History venlafaxine 37.5 mg 37.5 mg PO DAILY 07/02/24 Un known History capsule,extended release 24 hr (Effexor XR) venlafaxine 75 mg capsule,extended 75 mg PO DAILY 06/23 Unknown History release 24 hr (Effexor XR) polyethylene glycol 3350 17 17 g PO DAILY #119 grams 1 09/06/23 Unknown Rx gram/dose oral powder (Miralax) cholestyramine 4 gram oral powder 4 g PO QDAY #239.4 g bandar 01/29/25 Unknown Rx (Cholestyramine Light) pantoprazole 40 mg tablet,delayed 40 mg PO DAILY #90 t abs 01/29/25 Unknown Rx release Allergy/AdvReac Type Severity Reaction Status Date / Time No Known Allergies Allergy Verified 08/03/25 14:38 Social History Smoking Status: Former smoker ROS ROS ED Constitutional Constitutional ED: Denies chills or fever(s) Eyes Eyes: Denies blurry vision or change in vision ENT ENT ED: Denies rhinorrhea or sore throat Cardiovascular Cardiovascular: Denies chest pain or palpitations Respiratory/Chest Respiratory/Chest: Denies cough or dyspnea Gastrointestinal Gastrointestinal: Denies nausea or vomiting Genitourinary Genitourinary ED: Denies dysuria or hematuria Musculoskeletal Musculoskeletal: Reports neck pain; Denies back pain Integumentary Denies abscess or rash Neurologic Neurologic: Denies headache(s) or weakness Allergic/Immunologic Allergic/Immunologic ED: Denies mouth swelling or urticaria EXAM Physical Exam Const Vital Signs: 08/03/25 14:38 08/03/25 15:17 08/03/25 15:17 Temperature 98.1 F Temperature Source Oral Pulse Rate 108 H 95 Respiratory Rate 18 20 H Blood Pressure 142/71 H 116/77 Blood Pressure Mean 94 90 Pulse Ox 98 95 97 Oxygen Delivery Method Room Air Room Air
--- NOTE | 2025-08-03 15:08 | EX.ED.DYSGE1 ---
HPI History of Present Illness Chief Complaint: Neuro S/Sx Informant: patient Onset/Context/Timing Onset: Today Context: Sudden Onset Timing: Intermittent and Lasts (Few minutes) Quality: Unable to speak Location: Speech Worsened by: Nothing Relieved by: Nothing Narrative Narrative: Patient presents with an episode where he had difficulty speaking. Patient states it began today after eating lunch. Patient states the aide helped him back into his bed and he was unable to speak at that time. Patient states that this lasted a few minutes and then resolved. Currently, patient states his speech is back to his baseline. Patient denies any numbness or weakness. Patient denies any headaches. Patient states he has had a prior stroke with right-sided weakness. Patient admits to some mild neck pain. Patient denies any chest pain or shortness of breath. Patient denies any nausea or vomiting. [facility] Medical History Alcohol abuse, in remission Essential (primary) hypertension Anxiety disorder, unspecified Weakness Unspecified diastolic (congestive) heart failure Epilepsy, unspecified, not intractable, without status epilepticus Vitamin D deficiency Sciatica, left side Major depressive disorder, single episode, unspecified Hemiplegia and hemiparesis following cerebral infarction affecting right dominant side Cerebral infarction, unspecified Home Medications ?Medication ?Instructions ?Recorded ?Last Taken ?Type albuterol sulfate 2.5 mg/3 mL 2.5 mg inhalation TID PRN 07/02/24 Unknown History (0.083 %) solution for nebulization shortness of breath or wheezing amlodipine 5 mg tablet 5 mg PO BID 07/02/24 Unknown History aspirin 81 mg capsule 81 mg PO DAILY 07/02/24 Unknown History atorvastatin 80 mg tablet 80 mg PO QHS 07/02/24 Unknown History baclofen 10 mg tablet 10 mg PO BID 07/02/24 Unknown History baclofen 5 mg tablet 5 mg PO DAILY 07/02/24 Unknown History furosemide 40 mg tablet (Lasix) 40 mg PO DAILY 07/02/24 Unknown History ipratropium 20 mcg-albuterol 100 1 puff inhalation Q4H PRN 07/02/24 Unknown History mcg/actuation mist for inhalation shortness of breath or wheezing (Combivent Respimat) losartan 100 mg tablet 100 mg PO DAILY 07/02/24 Unknown History metoprolol succinate 25 mg 25 mg PO QHS 07/02/24 Unknown History tablet,extended release 24 hr potassium chloride 20 mEq 40 meq PO DAILY 07/02/24 Unknown History tablet,extended release psyllium 1 packet PO DAILY 07/02/24 Unknown History thiamine HCl (vitamin B1) 100 mg 100 mg PO DAILY 07/02/24 Unknown History tablet trazodone 50 mg tablet 25 mg PO QHS 07/02/24 Unknown History venlafaxine 37.5 mg 37.5 mg PO DAILY 07/02/24 Unknown History capsule,extended release 24 hr (Effexor XR) venlafaxine 75 mg capsule,extended 75 mg PO DAILY 07/02/24 Unknown History release 24 hr (Effexor XR) polyethylene glycol 3350 17 17 g PO DAILY #119 grams 07/07/24 Unknown Rx gram/dose oral powder (Miralax) cholestyramine 4 gram oral powder 4 g PO QDAY #239.4 grams 01/29/25 Unknown Rx (Cholestyramine Light) pantoprazole 40 mg tablet,delayed 40 mg PO DAILY #90 tabs 01/29/25 Unknown Rx release Allergy/AdvReac Type Severity Reaction Status Date / Time No Known Allergies Allergy Verified 08/03/25 14:38 Social History Smoking Status: Former smoker ROS ROS ED Constitutional Constitutional ED: Denies chills or fever(s) Eyes Eyes: Denies blurry vision or change in vision ENT ENT ED: Denies rhinorrhea or sore throat Cardiovascular Cardiovascular: Denies chest pain or palpitations Respiratory/Chest Respiratory/Chest: Denies cough or dyspnea Gastrointestinal Gastrointestinal: Denies nausea or vomiting Genitourinary Genitourinary ED: Denies dysuria or hematuria Musculoskeletal Musculoskeletal: Reports neck pain; Denies back pain Integumentary Denies abscess or rash Neurologic Neurologic: Denies headache(s) or weakness Allergic/Immunologic Allergic/Immunologic ED: Denies mouth swelling or urticaria EXAM Physical Exam Const Vital Signs: 08/03/25 14:38 08/03/25 15:17 08/03/25 15:17 Temperature 98.1 F Temperature Source Oral Pulse Rate 108 H 95 Respiratory Rate 18 20 H Blood Pressure 142/71 H 116/77 Blood Pressure Mean 94 90 Pulse Ox 98 95 97 Oxygen Delivery Method Room Air Room Air 08/03/25 15:37 08/03/25 16:00 08/03/25 17:00 Temperature Temperature Source Pulse Rate 96 88 102 H Respiratory Rate 20 H Blood Pressure 132/64 H 123/61 H 124/63 H Blood Pressure Mean 86 81 83 Pulse Ox 96 97 98 Oxygen Delivery Method Room Air Room Air Room Air 08/03/25 18:00 Temperature Temperature Source Pulse Rate 97 Respiratory Rate 20 H Blood Pressure 127/82 H Blood Pressure Mean 97 Pulse Ox 98 Oxygen Delivery Method Room Air Positive well nourished and well developed General Appearance ED: well developed and NAD HEENT Reports moist mucous membranes Neck supple and no JVD Resp normal respiratory effort and clear to auscultation bilaterally Cardio regular rhythm Rate: tachycardic GI non-tender and non-distended Palpation: soft Extremity normal to inspection Neuro oriented x3, CN's II-XII intact bilaterally and no sensory deficits noted Neuro Narrative: There is weakness of the right upper and lower extremities. Sensorium / Orientation: alert MDM MDM MDM Narrative Medical decision making narrative: Differential diagnosis includes TIA, stroke, electrolyte abnormality, hypoglycemic episode, cardiac dysrhythmia, cardiac ischemia, and coagulopathy. Stroke workup was obtained. CT scan of the brain will be obtained to assess for stroke and intracranial bleeding. CTA of the head and neck will be obtained to assess for large vessel occlusion and carotid stenosis. Chest x-ray will be obtained to assess for pneumonia or bronchitis. EKG will be obtained to assess for cardiac dysrhythmia and cardiac ischemia. CBC will be obtained to assess for leukocytosis and anemia. Basic metabolic profile will be obtained to assess for electrolyte abnormality renal function. PT with INR and PTT will be obtained to assess for coagulopathy. High-sensitivity troponin will be obtained to assess for cardiac ischemia. 2-hour repeat high-sensitivity troponin will be obtained to assess for ongoing cardiac ischemia. Lab Data Attestation: I reviewed the patient's lab results. Lab results narrative: CBC was reviewed and was within normal limits. Basic metabolic profile was reviewed and was essentially within normal limits. Initial high-sensitivity troponin was reviewed and was 32. 2-hour repeat high-sensitivity troponin was reviewed and was 44. PT with INR and PTT were reviewed and were within normal limits. Labs: Laboratory Results - last 24 hr 08/03/25 08/03/25 15:30 17:23 WBC 9.5 RBC 4.80 Hgb 15.2 Hct 42.5 MCV 88.5 MCH 31.7 MCHC 35.8 RDW Std Deviation 37.6 RDW Coeff of Sangeeta 11.8 Plt Count 331 MPV 8.6 Immature Gran % (Auto) 0.100 Neut % (Auto) 70.9 H Lymph % (Auto) 12.9 L Kane % (Auto) 11.5 H Eos % (Auto) 3.9 Baso % (Auto) 0.7 Absolute Neuts (auto) 6.7 Absolute Lymphs (auto) 1.22 Nucleated RBC % 0 PT 13.2 INR 1.0 APTT 26.1 Sodium 139 Potassium 4.2 Chloride 102 Carbon Dioxide 26.9 Anion Gap 10 BUN 10 Creatinine 0.84 Estim Creat Clear Calc 83.39 Est GFR (MDRD) Non-Af 91 BUN/Creatinine Ratio 11.6 Glucose 107 H Calcium 9.6 Troponin T High Sens 32 H Troponin T Hi Sens 2 Hr 44 H Radiography Diagnostic Testing: Clinical Impression(s) from Imaging Studies Brain CT 08/03/25 15:17 IMPRESSION: 1. No acute intracranial abnormality. 2. Age-related senescent changes. Reading Location: [facility] Head/Neck CTA 08/03/25 15:17 IMPRESSION: Patient motion artifact limits evaluation of the intracranial vasculature. Subject to this limitation, no evidence for intracranial large vessel occlusion or high-grade stenosis. Atheromatous plaque at the carotid bulbs resulting in moderate >50% stenosis of the proximal left ICA, and more mild <50% stenosis of the proximal right ICA. Stroke Alert: The critical findings above were relayed directly by me by telephone to Alonso Albarran on 08/03/2025 at 4:06 pm DESIGN MAKER with readback verification. Reading Location: [facility] Chest X-Ray 08/03/25 16:20 IMPRESSION: Cardiomegaly with mild congestion. Reading Location: [id number] Portable 1 view chest x-ray was obtained. On my independent interpretation, lung kelley show mild vascular congestion. There is cardiomegaly. Bony thorax is normal. There is no acute process noted. Radiologist also interpreted the x-ray and agrees. CT scan of the brain was obtained. There is no acute intracranial abnormality. There are chronic changes. This was interpreted by the radiologist. I also independently reviewed the images and did not see any evidence of intracranial bleeding or stroke. CTA of the head and neck was obtained. There is no evidence of large vessel occlusion noted. There are is greater than 50% stenosis of the left internal carotid artery and less than 50% stenosis of the right internal carotid artery. This was interpreted by the radiologist. I also independently reviewed the images and did not see any evidence of large vessel occlusion. EKG Initial EKG: Attestation: I personally reviewed and interpreted this EKG as follows: Interpretation: Sinus Rhythm (94) and No Acute Injury Pattern Comments: EKG was obtained. On my independent interpretation, it showed a normal sinus rhythm with a rate of 94. [place] interval, QRS interval, and QTc intervals were all normal. [place] was normal. There are no acute ST or T wave changes. Prior EKG tracings: available for review Prior: Unchanged (07/02/2024) Management Discussion w/another healthcare provider: Hospitalist and Radiologist Treatment and Re-Evaluation :: Patient was given aspirin. Patient was advised of his findings. Patient was advised of the need for further evaluation in the hospital. Patient is agreeable with this. Case was discussed with the hospitalist. She will admit the patient to PCU. Patient understood and was agreeable with the plan. All questions were answered. Discharge Plan Dx/Rx/DC Orders Clinical Impression: TIA (transient ischemic attack), Elevated troponin, History of CVA (cerebrovascular accident) Disposition Disposition: Acute Care Hospital [facility]
--- NOTE | 2025-08-03 15:17 | CT_ITS ---
PROCEDURE: STROKE CTA HEAD AND NECK W/CON 08/03/2025 REASON FOR EXAM: NEURO DEFICIT, ACUTE, STROKE SUSPECTED TECHNIQUE: Procedure Code: CTCTA.ST.HN Modality: CT Procedure: STROKE CTA HEAD AND NECK W/CON Multiplanar Sagittal and Coronal images were obtained. 3D post processing was performed. CONTRAST: Isovue 370 VOLUME: 100 mL One or more dose reduction techniques were used (e.g., Automated exposure control, adjustment of the mA and/or kV according to patient size, use of iterative reconstruction technique). RADIATION DOSE SUMMARY: DLP: 1506.13 mGycm COMPARISON: None available. FINDINGS: CTA HEAD: Significant patient motion artifact limits evaluation of the intracranial vasculature. Subject to this limitation, the major intracranial arterial vasculature appears patent without evidence for large vessel occlusion or high-grade stenosis. No dominant aneurysm or vascular malformation identified. CTA NECK: Conventional aortic arch branching. Bilateral cervical carotid and codominant vertebral arteries are patent. No aneurysm or dissection. Atheromatous plaque causes mild focal narrowing at the origins of the bilateral vertebral arteries, and at the origin of the right common carotid artery. Mixed calcified and noncalcified atheromatous plaque at the carotid bifurcations extending into the proximal ICAs, greater on the left with moderate greater than 50% stenosis of the proximal left ICA, and more mild less than 50% stenosis of the proximal right ICA. CT/STROKE CTA Head AND Neck W/Con IMPRESSION: Patient motion artifact limits evaluation of the intracranial vasculature. Sub ject to this limitation, no evidence for intracranial large vessel occlusion or high-grade stenosis. Atheromatous plaque at the carotid bulbs resulting in moderate >50% stenosis of the proximal left ICA, and more mild <50% stenosis of the proximal right ICA. Stroke Alert: The critical findings above were relayed directly by me by telephone to Alonso Rod on 08/03/2025 at 4:06 pm VENDING ENTERPRISES SUPERVISOR with readback verification. Reading Location: [id number]
--- NOTE | 2025-08-03 15:17 | EKG12_ITS ---
Test Reason : NEURO Blood Pressure : */* mmHG Vent. Rate : 94 BPM Atrial Rate : 94 BPM P-R Int : 160 ms QRS Dur : 80 ms QT Int : 358 ms P-R-T Axes : 16 -1 59 degrees QTcB Int : 447 ms Normal sinus rhythm Normal ECG Confirmed by TIMO PRITCHETT, RENUKA ([id number]), manuscript editor DINA PENA ([id number]) on 08/06/2025 6:49:06 AM Referred By: Confirmed By: RENUKA GREENWOOD MD
--- NOTE | 2025-08-03 15:17 | CT_ITS ---
PROCEDURE: STROKE BRAIN/HEAD WITHOUT CONT 08/03/2025 REASON FOR EXAM: NEURO DEFICIT, ACUTE, STROKE SUSPECTED TECHNIQUE: Procedure Code: CTBR.ST Modality: CT Procedure: STROKE BRAIN/HEAD WITHOUT CONT Coronal and Sagittal reconstruction series were provided. One or more dose reduction techniques were used (e.g., Automated exposure control, adjustment of the mA and/or kV according to patient size, use of iterative reconstruction technique. RADIATION DOSE SUMMARY: CTDlvol: 44.99 mGy DLP: 880 mGycm COMPARISON: None. FINDINGS: BRAIN: No acute intraparenchymal hemorrhage. No mass lesion. No CT evidence for acute territorial infarct. Remote infarcts in the right frontoparietal lobe convexity and left parietal lobe. No midline shift or extra-axial collection. Diffuse cerebral volume loss with corresponding ventricular prominence. Patchy periventricular white matter low attenuation, likely microvascular ischemic changes. Old left deluca radiata lacunar infarct. VENTRICLES: No hydrocephalus. ORBITS: The orbits are unremarkable. SINUSES AND MASTOIDS: Moderate right sphenoid sinus mucosal thickening. The mastoid air cells are clear. SOFT TISSUES: No acute abnormality seen. BONES: No acute osseous abnormality seen. OTHER: Carotid siphon calcification bilaterally. CT/STROKE Brain/Head without Cont IMPRESSION: 1. No acute intracranial abnormality. 2. Age-related senescent changes. Reading Location: [id number]
[2025-08-03 15:36] LABS: Hematocrit 42.5 % (40-54); Hemoglobin 15.2 g/dL (13.0-16.5); Immature Granulocytes Count 0.010 X10^3/uL (0.0-0.0); Mean Corp Hgb Conc 35.8 g/dL (32-36); Mean Corpuscular Volume 88.5 fL (80-94); Mean Platelet Vol. 8.6 fl (6.2-12.0); NRBC Flagged by Analyzer 0 % (0-5); Platelet Count 331 K/mm3 (150-450); RBC Distribution Width CV 11.8 % (11.6-14.6); RBC Distribution Width SD 37.6 fl (35.1-43.9); Red Blood Count 4.80 M/mm3 (4.6-6.2); White Blood Count 9.5 K/mm3 (4.4-11.0)
--- OUTSIDE RECORDS SUMMARY | 2025-08-03 15:52 | XMS RPT_ITS | CCD ---
Author Organization [facility] Care Team Providers Care Senior Business Process Analyst Name Role Phone PHYSICIAN, NONE Primary Care Physician Unavailab le GEETHA LARA Referring Unavailable CALEB ACKERMAN Attending Unavailable Leilani PRITCHETT, Dr. Dos Santos Primary Care Provider Jama MARZIPAN MOLDER-C, Geetha Attending Provider [phone] Levon Duke MD Referring Provider Bryan MARZIPAN MOLDER-C, Rosalia Attending Provider [phone] Rosalia Adams Attending Unavailable Levon Duke Primary Care Unavailable Levon Duke Referring Unavailable Geetha Morrow Attending Unavailabl Levon Carrillo Primary Care Unavailable Epi Tirado Attending Unavailable Tom Escobedo Consulting Unavailable Tom Escobedo Admitting Unavailable Tom Escobedo Referring Unavailable Levon Duke Primary Care Unavailable Epi Tirado Consulting Unavailable Geetha Lara Attending Unavailable Levon Duke Primary Care Unavailable Levon Duke Primary Care Unavailable Geetha Lara Referring Unavailable Geetha Lara Attending Unavailable Tom Escobedo Consulting Unavailable Tom Escobedo Admitting Unavailable Tom Escobedo Referring Unavailable Epi Tirado Attending Unavailable Levon Duke Primary Care Unavailable Tom Escobedo Attending Unavailable Rosalia Adams Attending Unavailable Levon Duke Primary Care Unavailable Levon Duke Referring Unavailable Medications Current Medications Medication Drug Class(es) Dates Sig (Normalized) Sig (Original) acetaminophen 325 mg oral tablet (2 sources) Start: 03-27-2022 Tylenol 325 mg oral tablet Dose : 650 mg = 2 tab(s), Oral, q4h, PRN Muscle pain Start Date: 03/27/22 Status: Ordered albuterol 0.83 mg/ml inhalation solution (2 sources) beta2-Adrenergic Agonist Start: 07-02-2024 take 2.5 mg by inhalation three times daily as needed for wheezing Albuterol Sulfate 2.5 mg /3 mL (0.083 %) solution for nebulization Active 2.5 mg INHALATION THREE TIMES A DAY as needed for shortness of breath or wheezing July 02, 2024 1:00am 120 actuat albuterol 0.1 mg/actuat / ipratropium bromide 0.02 mg/actuat inhalation spray (2 sources) Anticholinergic, beta2-Adrenergic Agonist Start: 07-02-2024 take 20-100 ug by inhalation every four hours as needed Ipratropium-Albut kierra (Combivent Respimat) 20-100 mcg/actuation mist Active 1 NMA INHALATION Q4H as needed for shortness of breath or wheezing July 02, 2024 1:00am aluminum hydroxide 80 mg/ml / magnesium hydroxide 80 mg/ml / simethicone 8 mg/ml oral suspension (2 sources) Start: 03-27-2022 take 1 dose by mouth every six hours as needed aluminum hydroxide/magnesi um hydroxide/simethi cone 400 mg-400 mg-40 mg/5 mL oral suspension Dose = 30 mL, Oral, q6h, PRN indigestion Start Date: 03/27/22 Status: Ordered amLODIPine 5 mg oral tablet (2 sources) Dihydropyridine Calcium Channel Jose Alfredo Start: 07-02-2024 take 1 tablet by mouth twice daily Amlodipine 5 mg tablet Active 5 mg PO TWICE A DAY July 02, 2024 1:00am aspirin 81 mg oral tablet (5 sources) Platelet Aggregation Inhibitor, Nonsteroidal Anti-inflammatory Drug Start: 07-02-2024 take 1 capsule by mouth once daily Aspirin 81 mg capsule Active 81 mg PO DAILY July 02, 2024 1:00am Start: 03-15-2022 End: 07-13-2022 aspirin 81 mg oral delayed r elease tablet Dose : 81 mg = 1 tab(s), Oral, qDay, # 30 tab(s), 3 Refill(s), [facility]acy: [facility] #[id number], 172.7, cm, 03/11/22 9:45:00 EDT, Height, kg, 03/11/22 9:45:00 EDT, Dosing Weight Start Date: 03/15/22 Stop Date: 07/13/22 Status: Ordered atorvastatin 80 mg oral tablet (5 sources) HMG-CoA Reductase Inhibitor Start: 07-02-2024 take 1 tablet by mouth at bedtime Atorvastatin 80 mg tablet Active 80 mg PO AT BEDTIME July 02, 2024 1:00am Start: 03-15-2022 End: 06-13-2022 atorvastatin 80 mg oral tabl et Dose : 80 mg = 1 tab(s), Oral, qDay, # 30 tab(s), 2 Refill(s), Pharmacy: [facility] #[id number], 172.7, cm, 03/11/22 9:45:00 EDT, Height, kg, 03/11/22 9:45:00 EDT, Dosing Weight Start Date: 03/15/22 Stop Date: 06/13/22 Status: Ordered baclofen 10 mg oral tablet (4 sources) gamma-Aminobutyric Acid-ergic Agonist Start: 07-02-2024 take 1 tablet by mouth twice daily Baclofen 10 mg tablet Active 10 mg PO TWICE A DAY July 02, 2024 1:00am Start: 07-02-2024 take 1 tablet by carmita once daily Baclofen 5 mg tablet Active 5 mg PO DAILY July 02, 2024 1:00am every afternoon docusate sodium 100 mg oral capsule (2 sources) Start: 03-27-2022 docusate sodium 100 mg oral capsule Dose : 100 mg = 1 cap(s), Oral, BID, PRN as needed for constipation Start Date: 03/27/22 Status: Ordered furosemide 40 mg oral tablet (2 sources) Loop Diuretic Start: 07-02-2024 take 1 tablet by mouth once daily Furosemide (Lasix) 40 mg tablet Active 40 mg PO DAILY July 02, 2024 1:00am glucagon (rdna) 1 mg injection (2 sources) Antihypoglycemic Agent Start: 03-27-2022 glucagon 1 mg injection Dose : 1 mg =, Intravenous, Once, PRN Hypoglycemia Start Date: 03/27/22 Status: Ordered glycerin 2000 mg rectal suppository (2 sources) Non-Standardized Chemical Allergen Start: 03-27-2022 take 1 dose rectal route once daily as needed for constipation glycerin adult rectal suppository Dose = 1 supp, Rectal, qDay, PRN as needed for constipation Start Date: 03/27/22 Status: Ordered hydrocortisone 25 mg/ml topical cream (2 sources) Corticosteroid Start: 03-27-2022 hydrocortisone 2.5% topical cream 1 miky(s), Topical, BID, PRN Itching, Apply to: back, 80.9 Start Date: 03/27/22 Status: Ordered levETIRAcetam 750 mg oral tablet (1 source) Start: 03-28-2022 End: 05-27-2022 Keppra 750 mg oral tablet Dose : 750 mg = 1 tab(s), Oral, BID, # 60 tab(s), 1 Refill(s), Pharmacy: [facility] #[id number], 177.8, cm, 03/27/22 21:14:00 EDT, Height Start Date: 03/28/22 Stop Date: 05/27/22 Status: Ordered losartan potassium 100 mg oral tablet (5 sources) Angiotensin 2 Receptor Jose Alfredo Start: 07-02-2024 take 1 tablet by mouth once daily Losartan 100 mg tablet Active 100 mg PO DAILY July 02, 2024 1:00am Start: 03-15-2022 End: 06-13-2022 losartan 25 mg oral tablet D ose : 25 mg = 1 tab(s), Oral, qDay, # 30 tab(s), 2 Refill(s), Pharmacy: [facility] #[id number], 172.7, cm, 03/11/22 9:45:00 EDT, Height, kg, 03/11/22 9:45:00 EDT, Dosing Weight Start Date: 03/15/22 Stop Date: 06/13/22 Status: Ordered 24 hr metoprolol succinate 25 mg extended release oral tablet (2 sources) beta-Adrenergic Jose Alfredo Start: 07-02-2024 take 1 tablet by mouth every twenty-four hours at bedtime Metoprolol Succinate 25 mg tablet extended release 24 hr Active 25 mg PO AT BEDTIME July 02, 2024 1:00am Milk of Magnesia 8% oral suspension (2 sources) Start: 03-27-2022 Milk of Magnesia 8% oral suspension 2.4 gram(s) Dose = 30 mL, Oral, qHS, PRN as needed for constipation Start Date: 03/27/22 Status: Ordered mirtazapine 15 mg oral tablet (2 sources) Start: 03-27-2022 mirtazapine 15 mg oral tablet Dose : 15 mg = 1 tab(s), Oral, qHS Start Date: 03/27/22 Status: Ordered nystatin 224781 unt/ml oral suspension (2 sources) Polyene Antifungal Start: 03-27-2022 take 1 dose by mouth four times daily nystatin 100,000 units/mL oral suspension Dose : 500,000 unit(s) = 5 mL, Oral, QID Start Date: 03/27/22 Status: Ordered polyethylene glycol 3350 93957 mg powder for oral solution (4 sources) Osmotic Laxative Start: 07-07-2024 Polyethylene Glycol 3350 (Miralax) 17 gram/dose powder Active 17 g PO DAILY 119 July 07, 2024 1:00am Start: 03-27-2022 take 17 doses by carmita once daily as needed for constipation MiraLax oral powder for reconstitution Dose : 17 gram(s) =, Oral, qDay, PRN Constipation Start Date: 03/27/22 Status: Ordered potassium chloride 20 meq extended release oral tablet (2 sources) Start: 07-02-2024 take 2 tablets by mouth once daily Potassium Chloride 20 mEq tablet extended release Active 40 meq PO DAILY July 02, 2024 1:00am Psyllium packet (2 sources) Start: 07-02-2024 take 8 [oz_av] by mouth once daily Psyllium packet Active 1 NMA PO DAILY July 02, 2024 1:00am mix into at least 8 oz of water or juice before administering thiamine 100 mg oral tablet (4 sources) Start: 07-02-2024 take 1 tablet by mouth once daily Thiamine Hcl (Vitamin B1) 100 mg tablet Active 100 mg PO DAILY July 02, 2024 1:00am Start: 03-27-2022 thiamine 100 m g oral tablet Dose : 100 mg = 1 tab(s), Oral, qDay Start Date: 03/27/22 Status: Ordered traZODone hydrochloride 50 mg oral tablet (2 sources) Serotonin Reuptake Inhibitor Start: 07-02-2024 Trazodone 50 mg tablet Active 25 mg PO AT BEDTIME July 02, 2024 1:00am 24 hr venlafaxine 37.5 mg extended release oral capsule (4 sources) Serotonin and Norepinephrine Reuptake Inhibitor Start: 07-02-2024 take 1 capsule by mouth once daily Venlafaxine (Effexor Xr) 37.5 mg capsule,extended release 24hr Active 37.5 mg PO DAILY July 02, 2024 1:00am Start: 07-02-2024 take 1 capsule by [facility] once daily Venlafaxine (Effexor Xr) 75 mg capsule,extended release 24hr Active 75 mg PO DAILY July 02, 2024 1:00am Completed/Discontinued Medications Medication Drug Class(es) Dates Sig (Normalized) Sig (Original) azithromycin 250 mg oral tablet (2 sources) Macrolide Antimicrobial Start: 07-02-2024 End: 07-07-2024 take 2 tablets by mouth once daily Azithromycin (Zithromax) 250 mg tablet Discontinued 250 mg PO DAILY July 02, 2024 1:00am July 07, 2024 12:19pm start on day 2 of therapy Cholestyramine Resin (1 source) Bile Acid Sequestrant Start: 01-01-2025 End: 01-15-2025 take 1 dose by mouth once daily Cholestyramine (With Sugar) 4 gram powder Discontinued 4 g PO daily January 01, 2025 12:00am January 14, 2025 12:00am January 15, 2025 12:06am administer w/meal; avoid other meds within 1hr before or 4-6hr after dose predniSONE 20 mg oral tablet (2 sources) Start: 07-02-2024 End: 01-01-2025 take 2 tablets by mouth once daily Prednisone 20 mg tablet Discontinued 40 mg PO DAILY July 02, 2024 1:00am January 01, 2025 9:50am Problems Active Problems Problem Classification Problem Date Documented Da te Episodic/Chronic Acute cerebrovascular disease (4 sources) 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; Translations: [Cerebral infarction due to unspecified occlusion or stenosis of left middle cerebral artery] Onset: 03-16-2022 Chronic Administrative/social admission (1 source) Needs assistance at home; Translations: [Need for assistance with personal care] Episodic Alcohol-related disorders (6 sources) Alcohol abuse; Translations: [Alcohol abuse, uncomplicated] Onset: 03-16-2022 Chronic Comment on above: At risk for delerium tremens Calculus of urinary tract (3 sources) Kidney stone 08-06-2014 Episodic Congestive heart failure; nonhypertensive (1 source) Diastolic heart failure; Translations: [Unspecified diastolic (congestive) heart failure] 01-01-2025 Chronic Diseases of white blood cells (1 source) Leukocytosis; Translations: [Elevated white blood cell count, unspecified] Chronic Disorders of lipid metabolism (6 sources) Hyperlipidemia; Translations: [Hyperlipidemia, unspecified] Onset: 03-16-2022 Chronic Essential hypertension (6 sources) Essential hypertension; Translations: [Essential (primary) hypertension] Onset: 03-16-2022 Chronic Genitourinary congenital anomalies (1 source) Hidden penis; 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] Onset: 08-31-2023 Chronic Genitourinary symptoms and ill-defined conditions (1 source) Continuous leakage; Translations: [Continuous leakage of urine] Onset: 08-31-2023 Chronic Hypertension with complications and secondary hypertension (1 source) Hypertensive urgency ; Translations: [Hypertensive urgency] Chronic Late effects of cerebrovascular disease (3 sources) 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; Translations: [Hemiplegia and hemiparesis following cerebral infarction affecting right dominant side] Chronic Occlusion or stenosis of precerebral arteries (2 sources) Carotid artery occlusion; Translations: [Occlusion and stenosis of left carotid artery] Chronic Other aftercare (1 source) Long-term current use of aspirin; Translations: [shelter (current) use of aspirin] Episodic Other and ill-defined heart disease (1 source) Heart disease; Translations: [Other ill-defined heart diseases] Chronic Other circulatory disease (2 sources) History of cerebrovascular accident; Translations: [Personal history of transient ischemic attack (TIA), and cerebral infarction without residual deficits] 07-02-2024 Episodic Other connective tissue disease (1 source) Weakness of face muscles; Translations: [Facial weakness] Episodic Other gastrointestinal disorders (2 sources) Diarrhea; Translations: [Diarrhea, unspecified] 01-01-2025 Episodic Other gastrointestinal disorders (1 source) Diarrhea, unspecified; Translations: [Diarrhea, unspecified] Onset: 01-01-2025 Episodic Other lower respiratory disease (2 sources) Respiratory insufficiency; Translations: [Other abnormalities of breathing] 07-02-2024 Episodic Other lower respiratory disease (2 sources) Hypoxia; Translations: [Hypoxemia] 07-02-2024 Episodic Other nervous system disorders (2 sources) Chronic pain; Translations: [Other chronic pain] 07-02-2024 Chronic Other nervous system disorders (1 source) Other chronic pain; Translations: [Other chronic pain] Onset: 07-07-2024 Chronic Other nervous system disorders (1 source) Dyslexia AND/OR speech dysfunction; Translations: [Dysarthria and anarthria] Episodic Other nervous system disorders (1 source) Abnormal gait; Translations: [Unspecified abnormalities of gait and mobility] Episodic Other nutritional; endocrine; and metabolic disorders (2 sources) Body mass index 25-29 - overweight; Translations: [Overweight] 07-02-2024 Episodic Residual codes; unclassified (3 sources) Pain 02-14-2016 Episodic Screening and history of mental health and substance abuse codes (1 source) H/O: Disorder; Translations: [Personal history of nicotine dependence] Episodic Past or Other Problems Problem Classification Problem Date Documented Date Episodic/Chronic Fluid and electrolyte disorders (3 sources) Dehydration; Translations: [Dehydration] Onset: 07-07-2024 07-02-2024 Episodic Influenza (5 sources) Influenza due to Influenza A virus; Translations: [Influenza due to other identified influenza virus with other respiratory manifestations] Onset: 07-07-2024 07-15-2024 Episodic Malaise and fatigue (9 sources) Asthenia; Translations: [Weakness] Onset: 07-07-2024 Episodic Nonmalignant breast conditions (1 source) Mastodynia; Translations: [Mastodynia] Onset: 03-11-2024 Episodic Other circulatory disease (1 source) Personal history of transient ischemic attack (TIA), and cerebral infarction without residual deficits; Translations: [Personal history of transient ischemic attack (TIA), and cerebral infarction without residual deficits] Onset: 07-07-2024 Episodic Other lower respiratory disease (1 source) Other abnormalities of breathing; Translations: [Other abnormalities of breathing] Onset: 07-07-2024 Episodic Other lower respiratory disease (1 source) Hypoxemia; Translations: [Hypoxemia] Onset: 08-04-2024 Episodic Other nutritional; endocrine; and metabolic disorders (1 source) Overweight; Translations: [Overweight] Onset: 07-07-2024 Episodic Results Test Name Value Interpretation Reference Range Facility Gastroenterology Visit Repor ton 01-29-2025 Gastroenterology Visit Report [facility] Gastroenterology [address] [place] [address] OFFICE VISIT Date of Service: 01/29/25 MR#: [id number] Acct: [id number] Name: MONICA SPAIN Rep #: [id number] : 1950 Provider: NAYELI canseco Age/Sex: 74/M Location: [facility] Status: Signed Intake Vital Signs 07/05/24 14:57 Height 5 ft 8 in Intake Visit Reasons: 1 M FU Allergies No Known Allergies Allergy (Verified 01/29/25 10:03) Medications ???Medication ???Instructions ???Recorded ???Confirmed ???Type albuterol sulfate 2.5 mg/3 mL 2.5 mg inhalation TID PRN 07/02/24 01/29/25 History (0.083 %) solution for nebulization shortness of breath or wheezing amlodipine 5 mg tablet 5 mg PO BID 07/02/24 01/29/25 Hist ory aspirin 81 mg capsule 81 mg PO DAILY 07/02/24 01/29/25 H istory atorvastatin 80 mg tablet 80 mg PO QHS 07/02/24 01/29/25 His tory baclofen 10 mg tablet 10 mg PO BID 07/02/24 01/29/25 His tory baclofen 5 mg tablet 5 mg PO DAILY 07/02/24 01/29/25 Hi story furosemide 40 mg tablet (Lasix) 40 mg PO DAILY 07/02/24 01/29/25 H istory ipratropium 20 mcg-albuterol 100 1 puff inhalation Q4H PRN 07/02/24 01/29/25 History mcg/actuation mist for inhalation shortness of breath or wheezing (Combivent Respimat) losartan 100 mg tablet 100 mg PO DAILY 07/02/24 01/29/25 History metoprolol succinate 25 mg 25 mg PO QHS 07/02/24 01/29/25 His tory tablet,extended release 24 hr potassium chloride 20 mEq 40 meq PO DAILY 07/02/24 01/29/25 History tablet,extended release psyllium 1 packet PO DAILY 07/02/24 5 History thiamine HCl (vitamin B1) 100 mg 100 mg PO DAILY 07/02/24 01/29/25 History tablet trazodone 50 mg tablet 25 mg PO QHS 07/02/24 01/29/25 His tory venlafaxine 37.5 mg 37.5 mg PO DAILY 07/02/24 01/29/25 History capsule,extended release 24 hr (Effexor XR) venlafaxine 75 mg capsule,extended 75 mg PO DAILY 07/02/24 01/29/25 History release 24 hr (Effexor XR) polyethylene glycol 3350 17 17 g PO DAILY #119 grams 07/07/24 01/29/25 Rx gram/dose oral powder (Miralax) cholestyramine 4 gram oral powder 4 g PO QDAY #239.4 grams 01/29/25 01/29/25 Rx (Cholestyramine Light) pantoprazole 40 mg tablet,delayed 40 mg PO DAILY #90 tabs 01/29/25 01/29/25 Rx release Have you fallen in the past year?: No Nurse's Note: Patient states that he is feeling better then he was. He was doing really good once he was put on the powder packets. He states he has no abdominal pain, nausea, vomitting at this time. [facility] Medical History Alcohol abuse, in remission Essential (primary) hypertension Anxiety disorder, unspecified Weakness Unspecified diastolic (congestive) heart failure Epilepsy, unspecified, not intractable, without status epilepticus Vitamin D deficiency Sciatica, left side Major depressive disorder, single episode, unspecified Hemiplegia and hemiparesis following cerebral infarction affecting right dominant side Cerebral infarction, unspecified Social History Smoking Status: Former smoker HPI HPI Details: MONICA SPAIN, is a 74 M who presents to the office today for FU. 01.01.25 OV established with [facility] regarding concerns of postprandial diarrhea with urgency. Living at [facility]. Differential diagnoses include: EPI, IBS, IBD. He was supposed to have labs for IBD, liver, CRP, lipase, and stool for calprotectin and elastase, but these orders were not completed. He was given 2wk trial of cholestyramine 4gm PO daily and the facility was to notify us of symptom improvement, this did not occur either. 01.29.25 OV Blood and stool testing not completed as ordered. He reports that powder worked great! But when the prescription ran out, the diarrhea slowly cam back to how it was before I started the powder. He reports experiencing some heartburn and difficulty swallowing now. Stating the last bite of a cheeseburger got stuck until I eventually could burp it clear out. He states that he was happy with how his BMs slowed down and firmed up on that powder. He denies difficulty chewing, cough, heartburn, reflux, nausea, emesis, abdominal pain, constipation, hematochezia, and melena. ROS Const Constitutional: No chills, fever(s), decreased energy or weight change Eyes Eyes: No change in vision ENT ENT: No abnormal hearing or difficulty swallowing Resp Respiratory: No cough Cardio Cardiology: Positive for leg pain with exertion; No chest pain at rest or chest pain with exertion Gastro GI: Positive for bloating, diarrhea and heartburn; No abdominal pain, belching, change in bowel habits, change in stool character, coffee ground emesis, constipation, cramping, d (more content not included)... Normal [facility] Gastroenterology Visit Repor ton 01-01-2025 Gastroenterology Visit Report [facility] Gastroenterology [address] [place] [address] OFFICE VISIT Date of Service: 01/01/25 MR#: [id number] Acct: [id number] Name: MONICA SPAIN Rep #: [id number] : 1950 Provider: NAYELI canseco Age/Sex: 74/M Location: [facility] Status: Signed Intake Vital Signs 07/05/24 14:57 Height 5 ft 8 in Intake Visit Reasons: LOOSE STOOL AND L LOWER ABD PAIN Allergies No Known Allergies Allergy (Verified 01/01/25 09:49) Medications ???Medication ???Instructions ???Recorded ???Confirmed ???Type albuterol sulfate 2.5 mg/3 mL 2.5 mg inhalation TID PRN 07/02/24 01/01/25 History (0.083 %) solution for nebulization shortness of breath or wheezing amlodipine 5 mg tablet 5 mg PO BID 07/02/24 01/01/25 Hist ory aspirin 81 mg capsule 81 mg PO DAILY 07/02/24 01/01/25 H istory atorvastatin 80 mg tablet 80 mg PO QHS 07/02/24 01/01/25 His tory baclofen 10 mg tablet 10 mg PO BID 07/02/24 01/01/25 His tory baclofen 5 mg tablet 5 mg PO DAILY 07/02/24 01/01/25 Hi story furosemide 40 mg tablet (Lasix) 40 mg PO DAILY 07/02/24 01/01/25 H istory ipratropium 20 mcg-albuterol 100 1 puff inhalation Q4H PRN 07/02/24 01/01/25 History mcg/actuation mist for inhalation shortness of breath or wheezing (Combivent Respimat) losartan 100 mg tablet 100 mg PO DAILY 07/02/24 01/01/25 History metoprolol succinate 25 mg 25 mg PO QHS 07/02/24 01/01/25 His tory tablet,extended release 24 hr potassium chloride 20 mEq 40 meq PO DAILY 07/02/24 01/01/25 History tablet,extended release psyllium 1 packet PO DAILY 07/02/24 5 History thiamine HCl (vitamin B1) 100 mg 100 mg PO DAILY 07/02/24 01/01/25 History tablet trazodone 50 mg tablet 25 mg PO QHS 07/02/24 01/01/25 His tory venlafaxine 37.5 mg 37.5 mg PO DAILY 07/02/24 01/01/25 History capsule,extended release 24 hr (Effexor XR) venlafaxine 75 mg capsule,extended 75 mg PO DAILY 07/02/24 01/01/25 History release 24 hr (Effexor XR) polyethylene glycol 3350 17 17 g PO DAILY #119 grams 07/07/24 01/01/25 Rx gram/dose oral powder (Miralax) cholestyramine (with sugar) 4 gram 4 g PO QDAY 2 weeks #378 grams 0 01/01/25 01/01/25 Rx oral powder Have you fallen in the past year?: No [facility] Medical History Alcohol abuse, in remission Essential (primary) hypertension Anxiety disorder, unspecified Weakness Unspecified diastolic (congestive) heart failure Epilepsy, unspecified, not intractable, without status epilepticus Vitamin D deficiency Sciatica, left side Major depressive disorder, single episode, unspecified Hemiplegia and hemiparesis following cerebral infarction affecting right dominant side Cerebral infarction, unspecified Social History Smoking Status: Former smoker HPI HPI Details: MONICA SPAIN, is a 74 M who presents to the office today for establishment with [facility] regarding concerns of postprandial diarrhea with urgency. He presents in a wheelchair due to right side affected stroke with an aid from the [facility]. He states that the diarrhea has not awakened him, but does occur shortly after first meal and will continue 3 to 4 more times until bedtime. Prior stool testing on 12.01.24 negative for CDiff and ova parasites. Blood collected on 12.05.24 does not demonstrate elevated WBCs and the BMP was WNL. He denies difficulty chewing and swallowing, cough, throat clearing, sinus drainage, heartburn, reflux, abdominal bloating, excessive gas, constipation, hematochezia, and melena. He denies weight change, travel out of country and recent change in water supply. ROS Const Constitutional: Positive for headache(s); No chills, fatigue, fever(s) or weight change ENT ENT: Positive for headache(s); No difficulty swallowing Resp Respiratory: No cough Gastro GI: Positive for abdominal pain, change in bowel habits, diarrhea and incontinent of stools; No belching, bloating, change in stool character, coffee ground emesis, constipation, cramping, heartburn, difficulty swallowing, feeling full early, excessive flatus, Vomiting blood/hematemesis, Blood in stool, loose stools, Black,tarry stools, nausea/dyspepsia, pain with swallowing, vomiting or other Musc Musculoskeletal: Positive for abnormal gait Skin Skin: No yellowing of the eye or itchy eyes Neuro Neurology: Positive for abnormal gait and headache(s) Psych Psychiatric: No anxiety and Positive for depression Endo Endocrine: No cold intolerance, fatigue, heat intolerance or weight change Aller/Imm Allergy/Immunologic: No itchy eyes Yaya/Lymp Hematologic/Lymphatic : Positive for easy bruising; No easy bleeding Exam Const General: (more content not included)... Normal [facility] Ova and Parasites 8623on OP Order Date: 12/01/24 Order Info: [id number] - OP OVA AND PARASITES EXAM, ROUTINE These results were obtained using wet preparation(s) and trichrome stained smear. This test does not include testing for Crytosporidium parvum, Cyclospora, or Microsporidia. One negative specimen does not rule out the possibility of a parasitic infection. TESTING PERFORMED AT [facility]. ORIGINAL REPORT ON FILE IN LAB CONTAINS ADDITIONAL TEST SITE INFORMATION. Ova/Parasite Exam NO OVA, CYSTS, OR PARASITES FOUND. Normal [facility] Comment on above: Performed By: #### L 501.5200 #### [facility] [address] [place] [address]. [place], [place], [address] CDIFF (PCR)on 12-02-2024 CDIFF Order Date: 12/01/24 Order Info: [id number] - C DIFF Pending 027 027 [id number] Presumptive Negative *for epidemiolologic???use C. Diff PCR Negative- No toxigenic C. Diff Detected Normal [facility] Comment on above: Performed By: #### L 501.5200 #### [facility] [address] [place] [address]. [place], [place], [id number] C. difficile DNA ALEIDA+probe Q l (Unsp spec)Ordered By: Geetha Lara on 12-01-2024 Clostridioides difficile (PCR) [facility] Clostridium difficile detect ion by polymerase chain reactionOrdered By: Geetha Lara on 12-01-2024 C. difficile DNA ALEIDA+probe Ql (Unsp spec) [facility] Ova and parasitesOrdered By: Geetha Lara on 12-01-2024 Ova and Parasites [facility] Culture, Blood (WB)on 2023 CUB Blood cultures x2, from two different sites No growth in 5 days. Normal [facility] Comment on above: Performed By: #### L 501.5200 #### [facility] [address] [place], [address] CUB Blood cultures x2, from two different sites No growth in 5 days. Normal [facility] Comment on above: Performed By: #### L 501.9520 #### [facility] [address] [place], [address] Basic Metabolic Profile (BMP )on 07-07-2024 BUN/CRE 30.5 RATIO High 10-20 [facility] Comment on above: Performed By: #### L 500.2500 #### [facility] [address] [place], [address] CA,Total 9.0 mg/dL Normal 8.5-10.1 [facility] Comment on above: Performed By: #### L 500.2500 #### [facility] [address] [place], [address] Chloride [Moles/Vol] 102 mmol/L Normal 98-107 [facility] Comment on above: Performed By: #### L 500.2500 #### [facility] [address] [place], [address] CO2 [Moles/Vol] 30.0 mmol/L Normal 21.0-32.0 [facility] Comment on above: Performed By: #### L 500.2500 #### [facility] [address] [place], [address] Creatinine [Mass/Vol] 0.82 mg/dL Normal 0.70-1.30 [facility] Comment on above: Result Comment: The validity of the calculated GFR GFRAA in patients over 70 years has not been determined. Clinical correlation is essential. Performed By: #### L 500.2500 #### [facility] [address] [place], [address] ECRCL 93.98 ml/min Normal [facility] Comment on above: Performed By: #### L 500.2500 #### [facility] [address] [place], [address] EST GFR - AA 119 mL/min Normal >60 [facility] Comment on above: Result Comment: Afri can Ethiopian GFR Calc Performed By: #### L 500.2500 #### [facility] [address] [place], [address] GAP 4 Low 5-15 [facility] Comment on above: Performed By: #### L 500.2500 #### [facility] [address] [place], [address] GFR/1.73 sq M.predicted among non-blacks MDRD (S/P/Bld) [Vol rate/Area] 98 mL/min/{1.73_m2} Normal >60 [facility] Comment on above: Result Comment: Non- GFR Calc Performed By: #### L 500.2500 #### [facility] [address] [place], [address] Glucose [Mass/Vol] 177 mg/dL High 74-106 [facility] Comment on above: Result Comment: Fast ing Glucose result greater than or equal to 126 mg/dL suggests DIABETES MELLITUS per A.D.A. criteria. Performed By: #### L 500.2500 #### [facility] [address] [place], [address] Potassium [Moles/Vol] 4.3 mmol/L Normal 3.5-5.1 [facility] Comment on above: Performed By: #### L 500.2500 #### [facility] [address] [place], [address] Sodium [Moles/Vol] 137 mmol/L Normal 136-145 [facility] Comment on above: Performed By: #### L 500.2500 #### [facility] [address] [place], [address] Urea nitrogen [Mass/Vol] 25 mg/dL High 7-18 [facility] Comment on above: Performed By: #### L 500.2500 #### [facility] [address] [place], [address] Basic Metabolic Profile (BMP )on 07-06-2024 BUN/CRE 33.8 RATIO High 10-20 [facility] Comment on above: Performed By: #### L 501.9520 #### [facility] [address] [place], [address] CA,Total 9.0 mg/dL Normal 8.5-10.1 [facility] Comment on above: Performed By: #### L 501.9520 #### [facility] [address] [place], [address] Chloride [Moles/Vol] 106 mmol/L Normal 98-107 [facility] Comment on above: Performed By: #### L 501.9520 #### [facility] [address] [place], [address] CO2 [Moles/Vol] 29.0 mmol/L Normal 21.0-32.0 [facility] Comment on above: Performed By: #### L 501.9520 #### [facility] [address] [place], [address] Creatinine [Mass/Vol] 0.77 mg/dL Normal 0.70-1.30 [facility] Comment on above: Result Comment: The validity of the calculated GFR GFRAA in patients over 70 years has not been determined. Clinical correlation is essential. Performed By: #### L 501.9520 #### [facility] [address] [place], [address] ECRCL 96.33 ml/min Normal [facility] Comment on above: Performed By: #### L 501.9520 #### [facility] [address] [place], [address] EST GFR - AA 127 mL/min Normal >60 [facility] Comment on above: Result Comment: Afri can Ethiopian GFR Calc Performed By: #### L 501.9520 #### [facility] [address], [address] GAP 3 Low 5-15 [facility] Comment on above: Performed By: #### L 501.9520 #### [facility] [address] [place], [address] GFR/1.73 sq M.predicted among non-blacks MDRD (S/P/Bld) [Vol rate/Area] 105 mL/min/{1.73_m2} Normal >60 [facility] Comment on above: Result Comment: Non- GFR Calc Performed By: #### L 501.9520 #### [facility] [address] [place], [address] Glucose [Mass/Vol] 172 mg/dL High 74-106 [facility] Comment on above: Result Comment: Fast ing Glucose result greater than or equal to 126 mg/dL suggests DIABETES MELLITUS per A.D.A. criteria. Performed By: #### L 501.9520 #### [facility] [address] [place], [address] Potassium [Moles/Vol] 4.3 mmol/L Normal 3.5-5.1 [facility] Comment on above: Performed By: #### L 501.9520 #### [facility] [address] [place], [address] Sodium [Moles/Vol] 138 mmol/L Normal 136-145 [facility] Comment on above: Performed By: #### L 501.9520 #### [facility] [address] [place], [address] Urea nitrogen [Mass/Vol] 26 mg/dL High 7-18 [facility] Comment on above: Performed By: #### L 501.9520 #### [facility] [address] [place], [address] CBC W/Diff, Automatedon 11-1 -2023 Absolute Lymph 1.14 X10 3/uL Normal 0.83-4.51 [facility] Comment on above: Performed By: #### L 500.2500 #### [facility] [address] [place], [address] Absolute Neut 9.6 X10 3/uL High 2.0-7.7 [facility] Comment on above: Performed By: #### L 500.2500 #### [facility] [address] [place], [address] Basophils/100 WBC (Bld) 0.1 % Normal 0-1 [facility] Comment on above: Performed By: #### L 500.2500 #### [facility] [place], [address] Eosinophils/100 WBC (Bld) 0.0 % Normal 0-5 [facility] Comment on above: Performed By: #### L 500.2500 #### [facility] [address] [place], [address] Erythrocyte distribution width (RBC) [Ratio] 11.2 % Low 11.6-14.6 [facility] Comment on above: Performed By: #### L 500.2500 #### [facility] [address] [place], [address] Hematocrit (Bld) [Volume fraction] 38.0 % Low 40-54 [facility] Comment on above: Performed By: #### L 500.2500 #### [facility] [address] [place], [address] Hemoglobin (Bld) [Mass/Vol] 13.7 g/dL Normal 13.0-16.5 [facility] Comment on above: Performed By: #### L 500.2500 #### [facility] [address] [place], [address] IG% 0.300 Normal 0.0-0.9 [facility] Comment on above: Result Comment: IG% - Immature Granulocytes (promyelocytes, myelocytes and metamyelocytes) > 1% indicates that a LEFT SHIFT is Present. Performed By: #### L 500.2500 #### [facility] [address] [place], [address] Lymphocytes/100 WBC (Bld) 9.7 % Low 19-41 [facility] Comment on above: Performed By: #### L 500.2500 #### [facility] [address] [place], [address] MCH (RBC) [Entitic mass] 32.0 pg Normal 27.0-32.0 [facility] Comment on above: Performed By: #### L 500.2500 #### [facility] [place], [address] MCHC (RBC) [Mass/Vol] 36.1 g/dL High 32-36 [facility] Comment on above: Performed By: #### L 500.2500 #### [facility] [address] [place], [address] MCV (RBC) [Entitic vol] 88.8 fL Normal 80-94 [facility] Comment on above: Performed By: #### L 500.2500 #### [facility] [address] [place], [address] Monocytes/100 WBC (Bld) 8.5 % Normal 0-10 [facility] Comment on above: Performed By: #### L 500.2500 #### [facility] [address] [place], [address] Neutrophils/100 WBC (Bld) 81.4 % High 47-70 [facility] Comment on above: Performed By: #### L 500.2500 #### [facility] [address] [place], [address] Nucleated RBC (Bld) [#/Vol] 0 10*3/uL Normal 0-5 [facility] Comment on above: Performed By: #### L 500.2500 #### [facility] [address] [place], [address] Platelet mean volume (Bld) [Entitic vol] 9.3 fL Normal 6.2-12.0 [facility] Comment on above: Performed By: #### L 500.2500 #### [facility] [address] [place], [address] Platelets (Bld) [#/Vol] 386 10*3/uL Normal 150-450 [facility] Comment on above: Performed By: #### L 500.2500 #### [facility] [address] [place], [address] RBC (Bld) [#/Vol] 4.28 10*6/uL Low 4.6-6.2 [facility] Comment on above: Performed By: #### L 500.2500 #### [facility] [address] [place], [address] RDW SD 36.0 fl Normal 35.1-43.9 [facility] Comment on above: Performed By: #### L 500.2500 #### [facility] [address] [place], [address] WBC (Bld) [#/Vol] 11.7 10*3/uL High 4.4-11.0 [facility] Comment on above: Performed By: #### L 500.2500 #### [facility] [address] [place], [address] Absolute Lymph 1.39 X10 3/uL Normal 0.83-4.51 [facility] Comment on above: Performed By: #### L 501.9520 #### [facility] [address] [place], [address] Absolute Neut 8.4 X10 3/uL High 2.0-7.7 [facility] Comment on above: Performed By: #### L 501.9520 #### [facility] [address] [place], [address] Basophils/100 WBC (Bld) 0.1 % Normal 0-1 [facility] Comment on above: Performed By: #### L 501.9520 #### [facility] [address] [place], [address] Eosinophils/100 WBC (Bld) 0.0 % Normal 0-5 [facility] Comment on above: Performed By: #### L 501.9520 #### [facility] [address] [place], [address] Erythrocyte distribution width (RBC) [Ratio] 11.2 % Low 11.6-14.6 [facility] Comment on above: Performed By: #### L 501.95 #### [facility] [address] [place], [address] Hematocrit (Bld) [Volume fraction] 39.2 % Low 40-54 [facility] Comment on above: Performed By: #### L 501.9520 #### [facility] [address] [place], [address] Hemoglobin (Bld) [Mass/Vol] 14.0 g/dL Normal 13.0-16.5 [facility] Comment on above: Performed By: #### L 501.9520 #### [facility] [address] [place], [address] IG% 0.400 Normal 0.0-0.9 [facility] Comment on above: Result Comment: IG% - Immature Granulocytes (promyelocytes, myelocytes and metamyelocytes) > 1% indicates that a LEFT SHIFT is Present. Performed By: #### L 501.9520 #### [facility] [address] [place], [address] Lymphocytes/100 WBC (Bld) 13.0 % Low 19-41 [facility] Comment on above: Performed By: #### L 501.9520 #### [facility] [address] [place], [address] MCH (RBC) [Entitic mass] 31.9 pg Normal 27.0-32.0 [facility] Comment on above: Performed By: #### L .9519 #### [facility] [address] [place], [address] MCHC (RBC) [Mass/Vol] 35.7 g/dL Normal 32-36 [facility] Comment on above: Performed By: #### L .9519 #### [facility] [address] [place], [address] MCV (RBC) [Entitic vol] 89.3 fL Normal 80-94 [facility] Comment on above: Performed By: #### L .9519 #### [facility] [address] [place], [address] Monocytes/100 WBC (Bld) 7.6 % Normal 0-10 [facility] Comment on above: Performed By: #### L 501.9519 #### [facility] [address] [place], [address] Neutrophils/100 WBC (Bld) 78.9 % High 47-70 [facility] Comment on above: Performed By: #### L [id number] #### [facility] [address] [place], [address] Nucleated RBC (Bld) [#/Vol] 0 10*3/uL Normal 0-5 [facility] Comment on above: Performed By: #### L 501.9519 #### [facility] [address] [place], [address] Platelet mean volume (Bld) [Entitic vol] 9.4 fL Normal 6.2-12.0 [facility] Comment on above: Performed By: #### L 501.9520 #### [facility] [address] [place], [address] Platelets (Bld) [#/Vol] 365 10*3/uL Normal 150-450 [facility] Comment on above: Performed By: #### L 501.9520 #### [facility] [address] [place], [address] RBC (Bld) [#/Vol] 4.39 10*6/uL Low 4.6-6.2 [facility] Comment on above: Performed By: #### L 501.9520 #### [facility] [address] [place], [address] RDW SD 36.3 fl Normal 35.1-43.9 [facility] Comment on above: Performed By: #### L 501.9520 #### [facility] [address] [place], [address] WBC (Bld) [#/Vol] 10.7 10*3/uL Normal 4.4-11.0 [facility] Comment on above: Performed By: #### L 501.9520 #### [facility] [address] [place], [address] Echo Complete W/ Contraston 07-06-2024 Echo Complete W/ Contrast [facility] [address] [place] [address] Echo Complete W/ Contrast 07/06/24 1339 MR#: [id number] Acct: [id number] Name: MONICA SPAIN Paul Rep #: [id number] : 1950 73 From: Geetha Morrow MD Attending Dr: Dr. Epi Tirado MD Status : ADM IN Ordering Dr: Epi Tirado MD Date: 07/06/24 Location: [facility]3 Sex: M C Admitted: 07/02/24 Reason For Study: PALPITATIONS Procedure This was a 2D Doppler, Color Flow transthoracic echocardiogram. The study was technically difficult. Contrast injection was performed. Exam performed portable in patient room. Left Ventricle Normal LV size. The estimated ejection fraction is 60 %. No evidence for diastolic dysfunction. No regional wall motion abnormalities noted. Right Ventricle Normal RV size. Normal systolic function. Atria The left and right atria are normal. No doppler evidence for ASD. Mitral Valve There is no mitral valve stenosis. No mitral valve insufficiency. Tricuspid Valve There is no tricuspid stenosis. Unable to estimate RV systolic pressure due to inadequate jet, pulmonary artery pressure probably normal. Aortic Valve Trisinus/trileaflet aortic valve. There is no aortic stenosis. No aortic valve insufficiency. Pulmonic Valve There is no pulmonic valvular stenosis. No pulmonic valve insufficiency. Great Vessels Normal aortic root. Pericardium/Pleural No pericardial effusion. Medication Diluted definity 1ml given slow IV push to enhance endocardial definition. MMode/2D Measurements Calculations LVOT diam: 2.0 cm asc Aorta Diam: 3.0 cm LAV(MOD-bp): 37.9 ml LVOT area: 3.2 cm2 LAV(MOD-bp) Indexed: 17.7 ml/m2 LAV(MOD-sp2): 31.2 ml LAV(MOD-sp4): 42.0 ml SV(MOD-sp4): 53.9 ml SV(sp4-el): 58.2 ml LVAd ap4: 32.8 cm2 LVLd ap4: 8.4 cm SI(MOD-sp4): 25.2 ml/m2 EDV(MOD-sp4): 101.9 ml EDV(sp4-el): 108.5 ml LVAs ap4: 20.1 cm2 LVLs ap4: 6.8 cm ESV(MOD-sp4): 48.0 ml ESV(sp4-el): 50.3 ml EF(MOD-sp4): 52.9 % EF(sp4-el): 53.6 % TAPSE: 1.9 cm LA A4 area: 17.1 cm2 RA A4 area: 7.9 cm2 Time Measurements MV dec time: 0.13 sec Doppler Measurements Calculations MV E max salinas: 63.6 cm/sec Lat Peak E' [place]: 6.3 cm/sec Med Peak E' [place]: 5.6 cm/sec MV A max [place]: 113.4 cm/sec E/E' lat: 10.0 E/E' med: 11.3 MV E/A: 0.56 MV V2 max: 113.8 cm/sec MV dec slope: 471.8 cm/sec2 Ao V2 max: 146.5 cm/sec MV max P.2 mmHg Ao max P.6 mmHg MV V2 mean: 68.3 cm/sec Ao V2 mean: 101.4 cm/sec MV mean P.2 mmHg Ao mean P.7 mmHg MV V2 VTI: 32.0 cm Ao V2 VTI: 29.0 cm MVA(VTI): 2.6 cm2 AV (velocity ratio): 0.90 ALEXEY(I,D): 2.9 cm2 ALEXEY(V,D): 2.8 cm2 LV V1 max: 128.1 cm/sec SV(LVOT): 84.5 ml LV V1 max P.6 mmHg LV V1 mean P.7 mmHg LV V1 mean: 91.3 cm/sec LV V1 VTI: 26.3 cm ECHO/Echo Complete W/ Contrast Interpretation Summary The estimated ejection fraction is 60 %. No evidence for diastolic dysfunction. Ordering Physician: Epi Tirado Referring Physician: Tom Escobedo Performed By: Josselyn Cortez and Student 07/07/24955 Date Geetha Morrow MD CC: Dr. Tom Escobedo DO; Dr. Epi Tirado MD; Dr. Levon Duke MD Date Dictated: 07/06/24 1339 Date Transcribed: 07/07/24955 Rn Admit: Signed Normal [facility] Basic Metabolic Profile (BMP )on 07-05-2024 BUN/CRE 31.8 RATIO High 10-20 [facility] Comment on above: Performed By: #### L 500.2500 #### [facility] [address] [place], [address] CA,Total 9.2 mg/dL Normal 8.5-10.1 [facility] Comment on above: Performed By: #### L 500.2500 #### [facility] [address] [place], [address] Chloride [Moles/Vol] 104 mmol/L Normal 98-107 [facility] Comment on above: Performed By: #### L 500.2500 #### [facility] [address] [place], [address] CO2 [Moles/Vol] 23.0 mmol/L Normal 21.0-32.0 [facility] Comment on above: Performed By: #### L 500.2500 #### [facility] [address] [place], [address] Creatinine [Mass/Vol] 0.85 mg/dL Normal 0.70-1.30 [facility] Comment on above: Result Comment: The validity of the calculated GFR GFRAA in patients over 70 years has not been determined. Clinical correlation is essential. Performed By: #### L 500.2500 #### [facility] [address] [place], [address] ECRCL 90.67 ml/min Normal [facility] Comment on above: Performed By: #### L 500.2500 #### [facility] [address] [place], [address] EST GFR - AA 114 mL/min Normal >60 [facility] Comment on above: Result Comment: Afri can Ethiopian GFR Calc Performed By: #### L 500.2500 #### [facility] [address] [place], [address] GAP 8 Normal 5-15 [facility] Comment on above: Performed By: #### L 500.2500 #### [facility] [address] [place], [address] GFR/1.73 sq M.predicted among non-blacks MDRD (S/P/Bld) [Vol rate/Area] 94 mL/min/{1.73_m2} Normal >60 [facility] Comment on above: Result Comment: Non- GFR Calc Performed By: #### L 500.2500 #### [facility] [address] [place], [address] Glucose [Mass/Vol] 172 mg/dL High 74-106 [facility] Comment on above: Result Comment: Fast ing Glucose result greater than or equal to 126 mg/dL suggests DIABETES MELLITUS per A.D.A. criteria. Performed By: #### L 500.2500 #### [facility] [address] [place], [address] Potassium [Moles/Vol] 4.3 mmol/L Normal 3.5-5.1 [facility] Comment on above: Performed By: #### L 500.2500 #### [facility] [address] [place], [address] Sodium [Moles/Vol] 135 mmol/L Low 136-145 [facility] Comment on above: Performed By: #### L 500.2500 #### [facility] [address] [place], [address] Urea nitrogen [Mass/Vol] 27 mg/dL High 7-18 [facility] Comment on above: Performed By: #### L 500.2500 #### [facility] [address] [place], [address] Magnesiumon 07-05-2024 Magnesium [Mass/Vol] 2.4 mg/dL Normal 1.6-2.6 [facility] Comment on above: Performed By: #### L 501.5200 #### [facility] [address] [place], [address] Basic Metabolic Profile (BMP )on 07-04-2024 BUN/CRE 32.5 RATIO High 10-20 [facility] Comment on above: Performed By: #### L 500.2500 #### [facility] [address] [place], [address] CA,Total 8.7 mg/dL Normal 8.5-10.1 [facility] Comment on above: Performed By: #### L 500.2500 #### [facility] [address] [place], [address] Chloride [Moles/Vol] 104 mmol/L Normal 98-107 [facility] Comment on above: Performed By: #### L 500.2500 #### [facility] [address] [place], [address] CO2 [Moles/Vol] 21.0 mmol/L Normal 21.0-32.0 [facility] Comment on above: Performed By: #### L 500.2500 #### [facility] [address] [place], [address] Creatinine [Mass/Vol] 0.80 mg/dL Normal 0.70-1.30 [facility] Comment on above: Result Comment: The validity of the calculated GFR GFRAA in patients over 70 years has not been determined. Clinical correlation is essential. Performed By: #### L 500.2500 #### [facility] [address] [place], [address] ECRCL 95.91 ml/min Normal [facility] Comment on above: Performed By: #### L 500.2500 #### [facility] [address] [place], [address] EST GFR - AA 122 mL/min Normal >60 [facility] Comment on above: Result Comment: Afri can Ethiopian GFR Calc Performed By: #### L 500.2500 #### [facility] [address] [place], [address] GAP 11 Normal 5-15 [facility] Comment on above: Performed By: #### L 500.2500 #### [facility] [address] [place], [address] GFR/1.73 sq M.predicted among non-blacks MDRD (S/P/Bld) [Vol rate/Area] 101 mL/min/{1.73_m2} Normal >60 [facility] Comment on above: Result Comment: Non- GFR Calc Performed By: #### L 500.2500 #### [facility] [address] [place], [address] Glucose [Mass/Vol] 154 mg/dL High 74-106 [facility] Comment on above: Result Comment: Fast ing Glucose result greater than or equal to 126 mg/dL suggests DIABETES MELLITUS per A.D.A. criteria. Performed By: #### L 500.2500 #### [facility] [address] [place], [address] Potassium [Moles/Vol] 4.2 mmol/L Normal 3.5-5.1 [facility] Comment on above: Performed By: #### L 500.2500 #### [facility] [address] [place], [address] Sodium [Moles/Vol] 137 mmol/L Normal 136-145 [facility] Comment on above: Performed By: #### L 500.2500 #### [facility] [address] [place], [address] Urea nitrogen [Mass/Vol] 26 mg/dL High 7-18 [facility] Comment on above: Performed By: #### L 500.2500 #### [facility] [address] [place], [address] Magnesiumon 4 Magnesium [Mass/Vol] 2.2 mg/dL Normal 1.6-2.6 [facility] Comment on above: Performed By: #### L 501.5200, L501.2300 #### [facility] [address] [place], [address] Phosphoruson 11-12-2024 Phosphate [Mass/Vol] 3.2 mg/dL Normal 2.5-4.9 [facility] Comment on above: Performed By: #### L 501.5200, L501.2300 #### [facility] [address] [place], [address] CBC W/Diff, Automatedon 11- Absolute Lymph 1.64 X10 3/uL Normal 0.83-4.51 [facility] Comment on above: Performed By: #### L 501.2300, L501.5200, L100.0100, L500.4050 #### [facility] [address] [place], [address] Absolute Neut 3.7 X10 3/uL Normal 2.0-7.7 [facility] Comment on above: Performed By: #### L 501.2300, L501.5200, L100.0100, L500.4050 #### [facility] [address] [place], [address] Basophils/100 WBC (Bld) 0.0 % Normal 0-1 [facility] Comment on above: Performed By: #### L 501.2300, L501.5200, L100.0100, L500.4050 #### [facility] [address] [place], [address] Eosinophils/100 WBC (Bld) 0.0 % Normal 0-5 [facility] Comment on above: Performed By: #### L 501.2300, L501.5200, L100.0100, L500.4050 #### [facility] [address] [place], [address] Erythrocyte distribution width (RBC) [Ratio] 11.6 % Normal 11.6-14.6 [facility] Comment on above: Performed By: #### L 501.2300, L501.5200, L100.0100, L500.4050 #### [facility] [address] [place], [address] Hematocrit (Bld) [Volume fraction] 37.6 % Low 40-54 [facility] Comment on above: Performed By: #### L 501.2300, L501.5200, L100.0100, L500.4050 #### [facility] [address] [place], [address] Hemoglobin (Bld) [Mass/Vol] 12.9 g/dL Low 13.0-16.5 [facility] Comment on above: Performed By: #### L 501.2300, L501.5200, L100.0100, L500.4050 #### [facility] [address] [place], [address] IG% 0.300 Normal 0.0-0.9 [facility] Comment on above: Result Comment: IG% - Immature Granulocytes (promyelocytes, myelocytes and metamyelocytes) > 1% indicates that a LEFT SHIFT is Present. Performed By: #### L 501.2300, L501.5200, L100.0100, L500.4050 #### [facility] [address] [place], [address] Lymphocytes/100 WBC (Bld) 26.6 % Normal 19-41 [facility] Comment on above: Performed By: #### L 501.2300, L501.5200, L100.0100, L500.4050 #### [facility] [address] [place], [address] MCH (RBC) [Entitic mass] 31.2 pg Normal 27.0-32.0 [facility] Comment on above: Performed By: #### L 501.2300, L501.5200, L100.0100, L500.4050 #### [facility] [address] [place], [address] MCHC (RBC) [Mass/Vol] 34.3 g/dL Normal 32-36 [facility] Comment on above: Performed By: #### L 501.2300, L501.5200, L100.0100, L500.4050 #### [facility] [address] [place], [address] MCV (RBC) [Entitic vol] 90.8 fL Normal 80-94 [facility] Comment on above: Performed By: #### L 501.2300, L501.5200, L100.0100, L500.4050 #### [facility] [address] [place], [address] Monocytes/100 WBC (Bld) 13.6 % High 0-10 [facility] Comment on above: Performed By: #### L 501.2300, L501.5200, L100.0100, L500.4050 #### [facility] [address] [place], [address] Neutrophils/100 WBC (Bld) 59.5 % Normal 47-70 [facility] Comment on above: Performed By: #### L 501.2300, L501.5200, L100.0100, L500.4050 #### [facility] [address] [place], [address] Nucleated RBC (Bld) [#/Vol] 0 10*3/uL Normal 0-5 [facility] Comment on above: Performed By: #### L 501.2300, L501.5200, L100.0100, L500.4050 #### [facility] [address] [place], [address] Platelet mean volume (Bld) [Entitic vol] 9.5 fL Normal 6.2-12.0 [facility] Comment on above: Performed By: #### L 501.2300, L501.5200, L100.0100, L500.4050 #### [facility] [address] [place], [address] Platelets (Bld) [#/Vol] 222 10*3/uL Normal 150-450 [facility] Comment on above: Performed By: #### L 501.2300, L501.5200, L100.0100, L500.4050 #### [facility] [address] [place], [address] RBC (Bld) [#/Vol] 4.14 10*6/uL Low 4.6-6.2 [facility] Comment on above: Performed By: #### L 501.2300, L501.5200, L100.0100, L500.4050 #### [facility] [address] [place], [address] RDW SD 38.8 fl Normal 35.1-43.9 [facility] Comment on above: Performed By: #### L 501.2300, L501.5200, L100.0100, L500.4050 #### [facility] [address] [place], [address] WBC (Bld) [#/Vol] 6.2 10*3/uL Normal 4.4-11.0 [facility] Comment on above: Performed By: #### L 501.2300, L501.5200, L100.0100, L500.4050 #### [facility] [address] [place], [address] Comprehensive Metabolic Prof [facility] 07-03-2024 Albumin [Mass/Vol] 3.1 g/dL Low 3.2-5.0 [facility] Comment on above: Performed By: #### L 501.2300, L501.5200, L100.0100, L500.4050 #### [facility] [address] [place], [address] Albumin/Globulin [Mass ratio] 0.8 {ratio} Low 0.9-2.4 [facility] Comment on above: Performed By: #### L 501.2300, L501.5200, L100.0100, L500.4050 #### [facility] [address] [place], [address] ALK P 76 U/L Normal 45-117 [facility] Comment on above: Performed By: #### L 501.2300, L501.5200, L100.0100, L500.4050 #### [facility] [address] [place], [address] ALT [Catalytic activity/Vol] 28 U/L Normal 16-61 [facility] Comment on above: Performed By: #### L 501.2300, L501.5200, L100.0100, L500.4050 #### [facility] [address] [place], [address] AST [Catalytic activity/Vol] 46 U/L High 15-37 [facility] Comment on above: Performed By: #### L 501.2300, L501.5200, L100.0100, L500.4050 #### [facility] [address] [place], [address] Bilirubin [Mass/Vol] 0.80 mg/dL Normal 0.20-1.00 [facility] Comment on above: Result Comment: For patients on eltrombopag therapy, use of Dimension [place] TBIL is not recommended. Performed By: #### L 501.2300, L501.5200, L100.0100, L500.4050 #### [facility] [address] [place], [address] BUN/CRE 26.0 RATIO High 10-20 [facility] Comment on above: Performed By: #### L 501.2300, L501.5200, L100.0100, L500.4050 #### [facility] [address] [place], [address] CA,Total 8.8 mg/dL Normal 8.5-10.1 [facility] Comment on above: Performed By: #### L 501.2300, L501.5200, L100.0100, L500.4050 #### [facility] [address] [place], [address] Chloride [Moles/Vol] 107 mmol/L Normal 98-107 [facility] Comment on above: Performed By: #### L 501.2300, L501.5200, L100.0100, L500.4050 #### [facility] [address] [place], [address] CO2 [Moles/Vol] 22.0 mmol/L Normal 21.0-32.0 [facility] Comment on above: Performed By: #### L 501.2300, L501.5200, L100.0100, L500.4050 #### [facility] [address] [place], [address] Creatinine [Mass/Vol] 0.88 mg/dL Normal 0.70-1.30 [facility] Comment on above: Result Comment: The validity of the calculated GFR GFRAA in patients over 70 years has not been determined. Clinical correlation is essential. Performed By: #### L 501.2300, L501.5200, L100.0100, L500.4050 #### [facility] [address] [place], [address] ECRCL 86.67 ml/min Normal [facility] Comment on above: Performed By: #### L 501.2300, L501.5200, L100.0100, L500.4050 #### [facility] [address] [place], [address] EST GFR - AA 109 mL/min Normal >60 [facility] Comment on above: Result Comment: Afri can Ethiopian GFR Calc Performed By: #### L 501.2300, L501.5200, L100.0100, L500.4050 #### [facility] [address] [place], [address] GAP 6 Normal 5-15 [facility] Comment on above: Performed By: #### L 501.2300, L501.5200, L100.0100, L500.4050 #### [facility] [address] [place], [address] GFR/1.73 sq M.predicted among non-blacks MDRD (S/P/Bld) [Vol rate/Area] 90 mL/min/{1.73_m2} Normal >60 [facility] Comment on above: Result Comment: Non- GFR Calc Performed By: #### L 501.2300, L501.5200, L100.0100, L500.4050 #### [facility] [address] [place], [address] Globulin (S) [Mass/Vol] 3.7 g/dL Normal 2.2-4.2 [facility] Comment on above: Performed By: #### L 501.2300, L501.5200, L100.0100, L500.4050 #### [facility] [address] [place], [address] Glucose [Mass/Vol] 111 mg/dL High 74-106 [facility] Comment on above: Result Comment: Fast ing Glucose result from 100 to 125 mg/dL suggests IMPAIRED HOMEOSTASIS per A.D.A. criteria. Performed By: #### L 501.2300, L501.5200, L100.0100, L500.4050 #### [facility] [address] [place], [address] Potassium [Moles/Vol] 4.1 mmol/L Normal 3.5-5.1 [facility] Comment on above: Performed By: #### L 501.2300, L501.5200, L100.0100, L500.4050 #### [facility] [address] [place], [address] Sodium [Moles/Vol] 135 mmol/L Low 136-145 [facility] Comment on above: Performed By: #### L 501.2300, L501.5200, L100.0100, L500.4050 #### [facility] [address] [place], [address] T PROT 6.8 g/dL Normal 6.4-8.2 [facility] Comment on above: Performed By: #### L 501.2300, L501.5200, L100.0100, L500.4050 #### [facility] [address] [place], [address] Urea nitrogen [Mass/Vol] 23 mg/dL High 7-18 [facility] Comment on above: Performed By: #### L 501.2300, L501.5200, L100.0100, L500.4050 #### [facility] [address] [place], [address] Magnesiumon 4 Magnesium [Mass/Vol] 2.0 mg/dL Normal 1.6-2.6 [facility] Comment on above: Performed By: #### L 500.2500 #### [facility] [address] [place], [address] Phosphoruson 4 Phosphate [Mass/Vol] 2.4 mg/dL Low 2.5-4.9 [facility] Comment on above: Performed By: #### L 501.2300, L501.5200, L100.0100, L500.4050 #### [facility] [address] [place], [address] Urine Cultureon 07-03-2024 URC Mixed Gram Pos Gram Neg Org Hana Count 1000-10,000 MIXC Mixed contaminants. Submit a new specimen if indicated. Normal [facility] Comment on above: Performed By: #### L 405.5209 #### [facility] [address] [place], [address] 12 Lead EKGon 07-02-2024 12 Lead EKG [facility] [address] [place] [address] 12 Lead EKG 07/02/24 1824 MR#: [id number] Acct: [id number] Name: MONICA SPAIN Rep #: [id number] : 1950 73 From: Sukhi Burns MD Attending Dr: Dr. Epi Tirado MD Status : ADM IN Ordering Dr: Levon Olivares Date: 07/02/24 Location: [facility] [place] Sex: M C Admitted: 07/02/24 Test Reason : GEN IL Blood Pressure : */* mmHG Vent. Rate : 105 BPM Atrial Rate : 105 BPM P-R Int : 140 ms QRS Dur : 80 ms QT Int : 334 ms P-R-T Axes : 19 -2 44 degrees QTcB Int : 441 ms Sinus tachycardia with Premature atrial complexes Otherwise normal ECG Confirmed by ROSA PRITCHETT, SUKHI ([id number]), acquisition editor DINA PENA ([id number]) on 07/03/2024 10:21:07 AM Referred By: Tom Escobedo Confirmed By: SUKHI BURNS MD 07/03/24 1021 Date Sukhi Burns MD CC: MARZIPAN MOLDER-C Levon Olivares; Dr. Tom Escobedo DO; Dr. Epi Tirado MD; Dr. Levon Duke MD Signed Normal [facility] BNP,B-Type NATRIURETIC PEPTI Calista 07-02-2024 Natriuretic peptide B (Bld) [Mass/Vol] 65.7 pg/mL Normal 0-100 [facility] Comment on above: Performed By: #### L 503.6694 #### [facility] [address] [place], [address] CBC W/Diff, Automatedon 11-1 0-2023 Absolute Lymph 1.13 X10 3/uL Normal 0.83-4.51 [facility] Comment on above: Performed By: #### L 500.2500 #### [facility] [address] [place], [address] Absolute Neut 4.8 X10 3/uL Normal 2.0-7.7 [facility] Comment on above: Performed By: #### L 500.2500 #### [facility] [address] [place], [address] Basophils/100 WBC (Bld) 0.0 % Normal 0-1 [facility] Comment on above: Performed By: #### L 500.2500 #### [facility] [place], [address] Eosinophils/100 WBC (Bld) 0.0 % Normal 0-5 [facility] Comment on above: Performed By: #### L 500.2500 #### [facility] [address] [place], [address] Erythrocyte distribution width (RBC) [Ratio] 11.6 % Normal 11.6-14.6 [facility] Comment on above: Performed By: #### L 500.2500 #### [facility] [address] [place], [address] Hematocrit (Bld) [Volume fraction] 39.2 % Low 40-54 [facility] Comment on above: Performed By: #### L 500.2500 #### [facility] [address] [place], [address] Hemoglobin (Bld) [Mass/Vol] 13.8 g/dL Normal 13.0-16.5 [facility] Comment on above: Performed By: #### L 500.2500 #### [facility] [address] [place], [address] IG% 0.300 Normal 0.0-0.9 [facility] Comment on above: Result Comment: IG% - Immature Granulocytes (promyelocytes, myelocytes and metamyelocytes) > 1% indicates that a LEFT SHIFT is Present. Performed By: #### L 500.2500 #### [facility] [address] [place], [address] Lymphocytes/100 WBC (Bld) 17.7 % Low 19-41 [facility] Comment on above: Performed By: #### L 500.2500 #### [facility] [address] [facility] [place], [address] MCH (RBC) [Entitic mass] 31.7 pg Normal 27.0-32.0 [facility] Comment on above: Performed By: #### L 500.2500 #### [facility] [address] [place] [address] [place], [address] MCHC (RBC) [Mass/Vol] 35.2 g/dL Normal 32-36 [facility] Comment on above: Performed By: #### L 500.2500 #### [facility] [address] [place], [address] MCV (RBC) [Entitic vol] 89.9 fL Normal 80-94 [facility] Comment on above: Performed By: #### L 500.2500 #### [facility] [address] [place], [address] Monocytes/100 WBC (Bld) 7.5 % Normal 0-10 [facility] Comment on above: Performed By: #### L 500.2500 #### [facility] [address] [place], [address] Neutrophils/100 WBC (Bld) 74.5 % High 47-70 [facility] Comment on above: Performed By: #### L 500.2500 #### [facility] [address] [place], [address] Nucleated RBC (Bld) [#/Vol] 0 10*3/uL Normal 0-5 [facility] Comment on above: Performed By: #### L 500.2500 #### [facility] [address] [place], [address] Platelet mean volume (Bld) [Entitic vol] 9.4 fL Normal 6.2-12.0 [facility] Comment on above: Performed By: #### L 500.2500 #### [facility] [address] [place], [address] Platelets (Bld) [#/Vol] 247 10*3/uL Normal 150-450 [facility] Comment on above: Performed By: #### L 500.2500 #### [facility] [address] [place], [address] RBC (Bld) [#/Vol] 4.36 10*6/uL Low 4.6-6.2 [facility] Comment on above: Performed By: #### L 500.2500 #### [facility] [address] [place], [address] RDW SD 38.1 fl Normal 35.1-43.9 [facility] Comment on above: Performed By: #### L 500.2500 #### [facility] [address] [place], [address] WBC (Bld) [#/Vol] 6.4 10*3/uL Normal 4.4-11.0 [facility] Comment on above: Performed By: #### L 500.2500 #### [facility] [address] [place], [address] Chest 1 View (Portable)on Chest 1 View (Portable) [facility] Imaging Services [address] [place] [address] Chest 1 View (Portable) MR#: [id number] Acct: [id number] Name: MONICA SPAIN Rep #: [id number] : 1950 M 73 From: Zach Gomez PCP: Dr. Levon Duke MD Status: REG ER Study: Chest 1 View (Portable) Date of Exam: 07/02/24 Exam# [id number] Ordering Dr: Levon Olivares [id number] STUDY: XR Chest 1 View 07/02/2024 7:00 PM REASON FOR EXAM: Male, 73 years old. cough COMPARISON: None TECHNIQUE: XR Chest 1 View FINDINGS: There is no demonstrated pleural abnormality. Normal heart size. Normal mediastinum. Normal yamileth. Prominent appearing increased interstitial lung markings. Normal visualized pulmonary arteries. There is atherosclerotic calcification of the aortic arch with tortuosity. There are diffuse degenerative changes of the visualized thoracic spine. There is degenerative osteoarthritis of the bilateral shoulders. There are no acute findings of the upper abdomen. RAD/Chest 1 View (Portable) IMPRESSION: There are no acute findings. Electronically Signed: Zach Cantrell MD at 20:11 EST Reading Location ID and State: [facility] / [place] , Service support , CC: NAYELI Olivares; Dr. Levon Duke MD Rn Admit: Signed Normal [facility] Comprehensive Metabolic Prof rossyon 07-02-2024 Albumin [Mass/Vol] 3.5 g/dL Normal 3.2-5.0 [facility] Comment on above: Order Comment: 'TROP ' Serial specimen #1, #2 or #3: 1 Performed By: #### L 500.2500 #### [facility] [address] [place], [address] Albumin/Globulin [Mass ratio] 0.9 {ratio} Normal 0.9-2.4 [facility] Comment on above: Order Comment: 'TROP ' Serial specimen #1, #2 or #3: 1 Performed By: #### L 500.2500 #### [facility] [address] [place], [address] ALK P 86 U/L Normal 45-117 [facility] Comment on above: Order Comment: 'TROP ' Serial specimen #1, #2 or #3: 1 Performed By: #### L 500.2500 #### [facility] [address] [place], [address] ALT [Catalytic activity/Vol] 32 U/L Normal 16-61 [facility] Comment on above: Order Comment: 'TROP ' Serial specimen #1, #2 or #3: 1 Performed By: #### L 500.2500 #### [facility] [address] [place], [address] AST [Catalytic activity/Vol] 50 U/L High 15-37 [facility] Comment on above: Order Comment: 'TROP ' Serial specimen #1, #2 or #3: 1 Performed By: #### L 500.2500 #### [facility] [address] [place], [address] Bilirubin [Mass/Vol] 0.80 mg/dL Normal 0.20-1.00 [facility] Comment on above: Order Comment: 'TROP ' Serial specimen #1, #2 or #3: 1 Result Comment: For patients on eltrombopag therapy, use of Dimension [place] TBIL is not recommended. Performed By: #### L 500.2500 #### [facility] [address] [place], [address] BUN/CRE 23.7 RATIO High 10-20 [facility] Comment on above: Order Comment: 'TROP ' Serial specimen #1, #2 or #3: 1 Performed By: #### L 500.2500 #### [facility] [address] [place], [address] CA,Total 9.1 mg/dL Normal 8.5-10.1 [facility] Comment on above: Order Comment: 'TROP ' Serial specimen #1, #2 or #3: 1 Performed By: #### L 500.2500 #### [facility] [address] [place], [address] Chloride [Moles/Vol] 102 mmol/L Normal 98-107 [facility] Comment on above: Order Comment: 'TROP ' Serial specimen #1, #2 or #3: 1 Performed By: #### L 500.2500 #### [facility] [address] [place], [address] CO2 [Moles/Vol] 21.0 mmol/L Normal 21.0-32.0 [facility] Comment on above: Order Comment: 'TROP ' Serial specimen #1, #2 or #3: 1 Performed By: #### L 500.2500 #### [facility] [address] [place], [address] Creatinine [Mass/Vol] 1.14 mg/dL Normal 0.70-1.30 [facility] Comment on above: Order Comment: 'TROP ' Serial specimen #1, #2 or #3: 1 Result Comment: The validity of the calculated GFR GFRAA in patients over 70 years has not been determined. Clinical correlation is essential. Performed By: #### L 500.2500 #### [facility] [address] [place], [address] ECRCL 68.35 ml/min Normal [facility] Comment on above: Order Comment: 'TROP ' Serial specimen #1, #2 or #3: 1 Performed By: #### L 500.2500 #### [facility] [address] [place], [address] EST GFR - AA 81 mL/min Normal >60 [facility] Comment on above: Order Comment: 'TROP ' Serial specimen #1, #2 or #3: 1 Result Comment: Afri can Ethiopian GFR Calc Performed By: #### L 500.2500 #### [facility] [address] [place], [address] GAP 8 Normal 5-15 [facility] Comment on above: Order Comment: 'TROP ' Serial specimen #1, #2 or #3: 1 Performed By: #### L 500.2500 #### [facility] [address] [place], [address] GFR/1.73 sq M.predicted among non-blacks MDRD (S/P/Bld) [Vol rate/Area] 67 mL/min/{1.73_m2} Normal >60 [facility] Comment on above: Order Comment: 'TROP ' Serial specimen #1, #2 or #3: 1 Result Comment: Non- GFR Calc Performed By: #### L 500.2500 #### [facility] [address] [place], [address] Globulin (S) [Mass/Vol] 3.9 g/dL Normal 2.2-4.2 [facility] Comment on above: Order Comment: 'TROP ' Serial specimen #1, #2 or #3: 1 Performed By: #### L 500.2500 #### [facility] [address] [place], [address] Glucose [Mass/Vol] 171 mg/dL High 74-106 [facility] Comment on above: Order Comment: 'TROP ' Serial specimen #1, #2 or #3: 1 Result Comment: Fast ing Glucose result greater than or equal to 126 mg/dL suggests DIABETES MELLITUS per A.D.A. criteria. Performed By: #### L 500.2500 #### [facility] [address] [place], [address] Potassium [Moles/Vol] 4.5 mmol/L Normal 3.5-5.1 [facility] Comment on above: Order Comment: 'TROP ' Serial specimen #1, #2 or #3: 1 Performed By: #### L 500.2500 #### [facility] [address] [place], [address] Sodium [Moles/Vol] 132 mmol/L Low 136-145 [facility] Comment on above: Order Comment: 'TROP ' Serial specimen #1, #2 or #3: 1 Performed By: #### L 500.2500 #### [facility] [address] [place], [address] T PROT 7.4 g/dL Normal 6.4-8.2 [facility] Comment on above: Order Comment: 'TROP ' Serial specimen #1, #2 or #3: 1 Performed By: #### L 500.2500 #### [facility] [address] [place], [address] Urea nitrogen [Mass/Vol] 27 mg/dL High 7-18 [facility] Comment on above: Order Comment: 'TROP ' Serial specimen #1, #2 or #3: 1 Performed By: #### L 500.2500 #### [facility] [address] [place], [address] Emergency Department Summary on 07-02-2024 Emergency Department Summary [facility] Medical Records Department [address] [place] [address] Emergency Department Summary 07/02/24 MR#: [id number] Acct: [id number] Name: MONICA SPAIN Rep #: [id number] : 1950 73 From: Kalen Sunshine DO PCP: Dr. Levon Duke MD Status:ADM IN Location: [place] [address] Patient was seen and examined with Nurse aby Dos Santos All components of the history and physical confirmed and agreed. History of present illness and physical exam: Patient is a 73-year-old male who presented to the emergency department from the [facility] with a chief complaint of shortness of breath, fever chills not feeling well. Patient does have a medical history of CVA with right-sided deficits nonambulatory is wheelchair-bound, hypertension, hyperlipidemia, anxiety, depression. Patient states that he has been sick for the last 4 to 5 days with intermittent needs of oxygen he states that he is not on oxygen chronically. Patient states that he is currently on azithromycin orally. Today noted that he was sweaty and felt worse and had increasing oxygen requirements therefore they sent him here for further evaluation management. Review of systems: Agree with above Physical exam: Agree with above MDM Patient is a 73-year-old male who presents to the emergency department the chief complaint of cough, congestion, fever, increasing oxygen requirements secondary to hypoxia. Patient will have a workup performed here on the differential diagnose includes but not limited to ACS, pneumonia, upper respiratory infection second viral etiology. Once workup is obtained reviewed he will be reevaluated. Patient be given DuoNebs for his hypoxia. Patient CBC reviewed and was largely unremarkable no evidence of leukocytosis white blood count normal at 6.4, hemoglobin stable 13.8, platelet count normal at 247. Patient sodium was noted to be 132, potassium normal 4.5, creatinine normal at 1.14. Patient's AST and ALT are 15 and 32 respectively. Patient's troponin normal at 28 and proBNP normal at 65.7. Patient's EKG was independently interpreted myself which showed sinus rhythm with premature atrial complexes with a rate of 105 bpm. Patient's chest x-ray reviewed by myself and by radiology which showed no acute cardiopulmonary processes. Patient did test positive for influenza A. At this point time do believe the patient will warrant admission for his acute hypoxic respiratory failure in the setting of influenza A. Patient case was discussed with hospitalist Dr. Menard who accept patient for admission. Patient was notified as well as family at bedside all question concerns answered. Plan: Final impression: Acute hypoxic respiratory failure Influenza A Disposition: Patient will be admitted to the hospital for further evaluation management Supervising attending attestation: Kalen GARLAND History of Present Illness Chief Complaint: General Illness Narrative Narrative: Patient is a 73-year-old male who comes from extended care facility with main diagnosis of a CVA with right-sided deficit, patient's not ambulate he is from a wheelchair. Patient does have history of hypertension hyperlipidemia, anxiety, depression, chronic pain. Patient has been sick for the last 4 to 5 days. He has been coughing, having intermittent needs for oxygen. Patient is currently on azithromycin orally. Today, the patient was sweaty, had more rigors, is complaining more of back pain and leg pain and is here for evaluation. PFSH PFS Home Medications ???Medication ???Instructions ???Recorded ???Last Taken ???Type albuterol sulfate 2.5 mg/3 mL 2.5 mg inhalation TID PRN 07/02/24 Unknown History (0.083 %) solution for nebulization shortness of breath or wheezing amlodipine 5 mg tablet 5 mg PO BID 07/02/24 Unknown History aspirin 81 mg capsule 81 mg PO DAILY 07/02/24 Unknown History atorvastatin 80 mg tablet 80 mg PO QHS 07/02/24 Unknown History azithromycin 250 mg tablet 250 mg PO DAILY 07/02/24 Unknown History (Zithromax) baclofen 10 mg tablet 10 mg PO BID 07/02/24 Unknown History baclofen 5 mg tablet 5 mg PO DAILY 07/02/24 Unknown History furosemide 40 mg tablet (Lasix) 40 mg PO DAILY 07/02/24 Unknown History ipratropium 20 mcg-albuterol 100 1 puff inhalation Q4H PRN 07/02/24 Unknown History mcg/actuation mist for inhalation shortness of breath or wheezing (Combivent Respimat) losartan 100 mg tablet 100 mg PO DAILY 07/02/24 Unknown History metoprolol succinate 25 mg 25 mg PO QHS 07/02/24 Unknown History tablet,extended release 24 hr potassium chloride 20 mEq 40 meq PO DAILY 07/02/24 Unknown History tablet,extended release prednisone 20 mg tablet 40 mg PO DAILY 07/02/24 Unknown History psyllium 1 packet PO DAILY 07/02/24 Unknown History thiamine HCl (vitamin B1) 100 mg 100 mg (more content not included)... Normal [facility] H AND P Exam - [facility] 07-02-2024 H&P Exam - Hospitalist [facility] Medical Records Department [address] [place] [address] H P Exam - Hospitalist 07/02/241944 MR#: [id number] Acct: [id number] Name: MONICA SPAIN Rep #: [id number] : 1950 73 From: Tom Escobedo DO PCP: Dr. Levon Duke MD Status:ADM IN Location: [facility] [place] [id number] [facility] - General General Date of Admission: 07/02/24 Date of Service: 07/02/24 Chief Complaint: Cough, Generalized Weakness, Malaise and Body Aches. HPI Narrative MONICA SPAIN, is a 73 M with a past medical history of essential hypertension; on Lasix, Losartan, Metoprolol and Amlodipine, hyperlipidemia, overweight; with BMI of 28.7 this admission, former tobacco abuse, depression with anxiety; on Venlafaxine and Trazodone, OA; with chronic pain and history of CVA; with residual Right-sided weakness and mobilizing in a wheelchair currently residing at [facility] who presents to [facility] ER complaining of generalized weakness and malaise. Mr. Spain reports his symptoms began approximately 4-5 days prior to admission with the gradual-onset of progressively worsening cough with generalized weakness and malaise with fatigue and increasing body aches with patient recently started on oral Azithromycin and Prednisone for suspected bronchitis. He then developed a nonproductive cough with a low-grade fever of 99.7 degrees Fahrenheit with the staff at his F noting hypoxia in the 85% range on RA so he was sent in to the ER for further evaluation and treatment. He also admits having rigors and sweats with more back pain and leg pain than normal. He denies associated nausea, vomiting, diarrhea, constipation, chest pain, palpitations, heart racing, headache, new focal neurologic deficits or needing supplemental oxygen recently. In the ER his viral PCR assay returned positive for Influenza A complicated by clinical evidence of Acute Respiratory Insufficiency and laboratory evidence of Dehydration; with elevated BUN/creatinine ratio of 23.7 present on admission compounded by Generalized Weakness with Fatigue and Malaise in the setting of known prior CVA; with residual Right-sided weakness and OA with Chronic Pain exacerbated by acute viral illness and he was then admitted to the general medical floor with telemetric monitoring under droplet precautions for ongoing care for a stay that is expected to extend beyond 48 hours. [facility] Home Medications ???Medication ???Instructions ???Recorded ???Last Taken ???Type albuterol sulfate 2.5 mg/3 mL 2.5 mg inhalation TID PRN 07/02/24 Unknown History (0.083 %) solution for nebulization shortness of breath or wheezing amlodipine 5 mg tablet 5 mg PO BID 07/02/24 Unknown History aspirin 81 mg capsule 81 mg PO DAILY 07/02/24 Unknown History atorvastatin 80 mg tablet 80 mg PO QHS 07/02/24 Unknown History azithromycin 250 mg tablet 250 mg PO DAILY 07/02/24 Unknown History (Zithromax) baclofen 10 mg tablet 10 mg PO BID 07/02/24 Unknown History baclofen 5 mg tablet 5 mg PO DAILY 07/02/24 Unknown History furosemide 40 mg tablet (Lasix) 40 mg PO DAILY 07/02/24 Unknown History ipratropium 20 mcg-albuterol 100 1 puff inhalation Q4H PRN 07/02/24 Unknown History mcg/actuation mist for inhalation shortness of breath or wheezing (Combivent Respimat) losartan 100 mg tablet 100 mg PO DAILY 07/02/24 Unknown History metoprolol succinate 25 mg 25 mg PO QHS 07/02/24 Unknown History tablet,extended release 24 hr potassium chloride 20 mEq 40 meq PO DAILY 07/02/24 Unknown History tablet,extended release prednisone 20 mg tablet 40 mg PO DAILY 07/02/24 Unknown History psyllium 1 packet PO DAILY 07/02/24 Unknown History thiamine HCl (vitamin B1) 100 mg 100 mg PO DAILY 07/02/24 Unknown History tablet trazodone 50 mg tablet 25 mg PO QHS 07/02/24 Unknown History venlafaxine 37.5 mg 37.5 mg PO DAILY 07/02/24 Unknown History capsule,extended release 24 hr (Effexor XR) venlafaxine 75 mg capsule,extended 75 mg PO DAILY 07/02/24 Unknown History release 24 hr (Effexor XR) Allergy/AdvReac Type Severity Reaction Status Date / Time No Known Allergies Allergy Verified 07/02/24 22:23 Social History Smoking Status: Former smoker ROS ROS Narrative Review of Systems: Constitutional: Patient admits to chills with a low-grade fever as noted in HPI. Eyes: Patient denies visual changes or discharge from eyes. ENT: Patient denies runny nose, sore throat or ear pain. Resp: Patient admits to SOB and nonproductive cough as per HPI. CV: Patient denies chest pain, palpitations or heart racing. GI: Patient denies abdominal pain, nausea, vomiting, diarrhea or constipation. : Patient denies dysuria or hematuria. MSK: Patient generalized body aches exacerbating his chronic pain. Skin: Patient de (more content not included)... Normal [facility] L501.4020on 07-02-2024 TROPONIN-I HS 28 pg/mL Normal 3.0-78.0 [facility] Comment on above: Order Comment: 'TROP ' Serial specimen #1, #2 or #3: 1 Result Comment: Plea se Note: New Test Units and Gender Specific Reference Ranges. For more information see Policy Stat Procedure [place] High Sensitivity Troponin (TNIH) and attachments. Performed By: #### L 500.2500 #### [facility] [address] [place], [address] Lactic Acidon 07-02-2024 Lactate [Moles/Vol] 1.3 mmol/L Normal 0.4-1.9 [facility] Comment on above: Order Comment: Y Performed By: #### L 500.2500 #### [facility] [address] [place], [address] M100.678on 07-02-2024 M100.678 Pending SARS-CoV-2 (COVID 19) Negative INFLUENZA A A Positive A INFLUENZA B Negative RSV PCR Negative INFLUENZAE A Normal [facility] Comment on above: Performed By: #### L 501.5200 #### [facility] [address] [place], [address] Partial Thromboplast Timeon 07-02-2024 aPTT Coag (Bld) [Time] 28.9 s Normal 24.1-36.2 [facility] Comment on above: Performed By: #### L 500.2500 #### [facility] [address] [place], [address] Prothrombin Time w/INRon INR Coag (PPP) [Relative time] 1.1 {INR} Normal [facility] Comment on above: Performed By: #### L 500.2500 #### [facility] [address] [place], [address] PT Coag (PPP) [Time] 13.8 s Normal 11.7-14.9 [facility] Comment on above: Performed By: #### L 500.2500 #### [facility] [address] [place], [address] Thyroid Stim Hormone (TSH)on 07-02-2024 TSH 1.400 uIU/mL Normal 0.358-3.740 [facility] Comment on above: Performed By: #### L 501.9920 #### [facility] [address] [place], [address] Urinalysis, Completeon 07-02 BACTERIA 0 SEEN Normal None Seen [facility] Comment on above: Order Comment: OSMNA CTOR TO SPECIFY Performed By: #### L 501.5200 #### [facility] [address] [place], [address] EPI,SQUAMOUS 0 SEEN Normal 0-5 [facility] Comment on above: Order Comment: OSMAN CTOR TO SPECIFY Performed By: #### L 501.5200 #### [facility] [address] [place], [address] Mucus Ql (Urine sed) 0 SEEN Normal [facility] Comment on above: Order Comment: OSMAN CTOR TO SPECIFY Performed By: #### L 501.5200 #### [facility] [address] [place], [address] RBC 0 SEEN Normal 0-5 [facility] Comment on above: Order Comment: OSMAN CTOR TO SPECIFY Performed By: #### L 501.5200 #### [facility] [address] [place], [address] WBC 0 SEEN Normal 0-5 [facility] Comment on above: Order Comment: COLLE CTOR TO SPECIFY Performed By: #### L 501.5200 #### [facility] [address] [place], [place], [address] DIAG MAMM W/CAD, BILATon DIAG MAMM W/CAD, BILAT [facility] Imaging Services [address] [place] [address] DIAG MAMM W/CAD, BILAT MR#: [id number] Acct: [id number] Name: MONICA SPAIN Rep #: [id number] : 1950 M 73 From: Drew Gresham MD PCP: Dr. Levon Duke MD Status: [facility] Study: DIAG MAMM W/CAD, BILAT Date of Exam: 02/18/24 Exam# [id number] Ordering Dr: Geetha Lara MARZIPAN MOLDER MARZIPAN MOLDER-C [id number] MAMMOGRAPHY - BILATERAL DIAGNOSTIC REASON FOR EXAM: Male, 73 years old. BREAST PAIN PERTINENT HISTORY: Non-contributory. TECHNIQUE: Digital examination. Mediolateral oblique (MLO) and craniocaudad (CC) views of both breasts were obtained. CAD: CAD was performed on this study. COMPARISON: None. FINDINGS: Breast Composition: The breasts are almost entirely fatty. There are no dominant masses or suspicious calcifications. There is a small amount of breast parenchyma in the retroareolar left breast corresponding to the area of pain consistent with gynecomastia. BI/DIAG MAMM W/CAD, BILAT IMPRESSION: Mild left gynecomastia likely explaining the patient''s pain. ASSESSMENT CATEGORY: BIRADS Category 2: Benign. A letter regarding these results will be sent to the patient by the facility within 30 days. FOLLOW UP RECOMMENDATION: No imaging follow up needed. (O) Approximately 10% of breast cancers are not detected by mammography. A normal mammogram should not delay biopsy of a clinically suspicious abnormality. Electronically Signed: Drew Gresham MD at 9:46 EDT , CC: NAYELI Lara; Dr. Levon Duke MD Rn Admit: Signed Normal [facility] CNOVon 08-31-2023 CNOV Office Visit (UROLWS ) MONICA SPAIN ([id number]) 1950 M Date Time Provider Department 08/31/23 3:30 PM CALEB ACKERMAN During your visit today, we recorded the following information about you: Blood pressure 160/84 Shonna Overton RN 08/31/2023 6:26 PM Signed post void 56 ml, last void approx less than 1 hour ago. Pt unable to give sample at visit today. GILMER Rouse Brandon, PA-C 08/31/2023 6:26 PM Signed [facility] NEW PATIENT CLINIC NOTE SERVICE DATE: 08/31/2023 SERVICE TIME: 6:17 PM NAME: Monica Spain CHIEF COMPLAINT: Incontinence and Hidden Penis HISTORY OF PRESENT ILLNESS: Monica Spain is a 73 year old male presenting as an New Patient for Incontinence and Hidden Penis The patient reports he is having trouble with urination given hidden penis and with incontinence His skin get very irritated and recommend use of barrier cream such as Zinc Oxide to prevent skin maceration LABS: No results found for: TESTOST No results found for: TESTFREE No results found for: PSA No results found for: HCT No results found for: PSA No results found for: CREAT MEDICATIONS: amLODIPine (NORVASC) 5 mg tablet Take by mouth two times a day. aspirin, enteric coated (ASPIRIN, ENTERIC COATED) 81 mg EC tablet Take 81 mg by mouth once daily. atorvastatin (LIPITOR) 80 mg tablet Take 80 mg by mouth once daily. baclofen 5 mg tablet Take by mouth three times a day. citalopram hydrobromide (CELEXA) 10 mg tablet Take 10 mg by mouth once daily. ipratropium 20 mcg-albuterol 100 mcg (COMBIVENT RESPIMAT) 20-100 mcg/actuation inhaler Inhale 1 Puff as instructed. herbal drugs (FIBER DIET ORAL) Take by mouth. docusate sodium (COLACE) 100 mg capsule Take 100 mg by mouth two times a day as needed for constipation. cephALEXin (KEFLEX) 500 mg capsule Take 500 mg by mouth three times a day. x 10 days for toe infection furosemide (LASIX) 40 mg tablet Take 40 mg by mouth once daily. LOSARTAN POTASSIUM, BULK, MISC METOPROLOL SUCCINATE ORAL Take 25 mg by mouth once daily. guaifenesin/phenyleph rine HCl (MUCINEX COLD ORAL) Take by mouth. POTASSIUM CHLORATE, BULK, MISC thiamine (THIAMILATE ORAL) Take 100 mg by mouth. acetaminophen (TYLENOL) 325 mg tablet Take 650 mg by mouth every 4 hours as needed for pain. omega-3s/dha/epa/fish oil/D3 (VITAMIN-D + OMEGA-3 ORAL) Take by mouth. PAST MEDICAL HISTORY: No past medical history on file. PAST SURGICAL HISTORY: No past surgical history on file. FAMILY HISTORY: No family history on file. SOCIAL HISTORY: Social Connections: Not on file REVIEW OF SYSTEMS: GENERAL: No fever, chills, weight loss, or fatigue. ENMT: Negative CARDIOVASCULAR:NO CHEST PAIN, PALPITATIONS, ANKLE EDEMA RESPIRATORY: No chronic cough, wheezing, dyspnea, hemoptysis. GENITOURINARY: SEE HPI MUSCULOSKELETAL:NO CHRONIC BACK PAIN, ARTHRITIS, CHRONIC NECK PAIN SKIN: NO VARICOSE VEINS, RASH, ABNORMAL ITCHING HEME/LYMPH/IMMUNE:Neg ative for prolonged bleeding, bruising easily or swollen nodes NEUROLOGICAL: NO HEADACHES, NUMBNESS, SEIZURES, STROKE DIABETES: no All other systems reviewed and are negative PHYSICAL EXAMINATION: Blood pressure 160/84. GENERAL: WNL nutrition, no deformities, healthy appearing NEURO: Awake, alert and oriented x 3 and Normal gait PSYCH: No signs of depression, anxiety, or agitation ENMT (Ear, Nose, Mouth, Throat): No masses, adenopathy, icterus. Thyroid nonpalpable RESP: NL effort, no retractions or purse-lip breathing. CV: No extremity swelling, varices, edema, pallor, erythema GASTROINTESTINAL: Soft, nontender, nondistended, no masses. HERNIAS: None SKIN: No rash, lesions No palpable lymphadenopathy MUSCULOSKELETAL: Extremities normal. No deformities, edema, clubbing or skin discoloration. PROBLEM LIST REVIEW: Yes LABS: No results found for this or any previous visit. PROCEDURES: PVR: 56 ml IMAGING: IMPRESSION/PLAN: 73 year old male with 1. 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 Continuous leakage of urine - ICD9: 788.37, ICD10: N39.45 > Discussed hidden penis is a condition that is no amenable to surgery and likely due to increased pubic fat pad > Discussed his inability to control urination and using pads during the night, recommend that he have ointment or Zinc Oxide Applied to the pelvic area in its entirely to repel urine moisture each time his incontinence pad is changed > orders written and sent I spent a total of 30 minutes on the date of the service which included preparing to see the patient, face to face patient care, completing clinical documentation, obtaining and/or reviewing separately obtained history, performing a medically appropriate examination, counseling and educ (more content not included)... Normal [facility] Irena 08-27-2023 CNPN Telephone (UROLWS) MONICA SPAIN ([id number]) 1950 Date Time Provider Department 08/27/23 CALEB ACKERMAN During your visit today, we recorded the following information about you: Beryl Rosario SCAFFOLD ERECTOR 08/27/2023 11:14 AM Signed Called patient- resides at [facility]. Spoke with Kaya to request medical records and to remind of appointment time. Beryl RosarioKEVIN Beryl Rosario KEVIN 08/30/2023 2:25 PM Signed Called patient- patient resides at [facility]- spoke with Laura who transferred me to medical records. Message left of request. Beryl Rosario SCAFFOLD ERECTOR Allergies As of Date: 08/27/2023 (Not on File) Date Reviewed: Never Reviewed Reason for Visit: Request Outside Medical Records [[id number]] Prescriptions as of 09/02/2023 - amLODIPine (NORVASC) 5 mg tablet Take by mouth two times a day. - aspirin, enteric coated (ASPIRIN, ENTERIC COATED) 81 mg EC tablet Take 81 mg by mouth once daily. - atorvastatin (LIPITOR) 80 mg tablet Take 80 mg by mouth once daily. - baclofen 5 mg tablet Take by mouth three times a day. - citalopram hydrobromide (CELEXA) 10 mg tablet Take 10 mg by mouth once daily. - ipratropium 20 mcg-albuterol 100 mcg (COMBIVENT RESPIMAT) 20-100 mcg/actuation inhaler Inhale 1 Puff as instructed. - herbal drugs (FIBER DIET ORAL) Take by mouth. - docusate sodium (COLACE) 100 mg capsule Take 100 mg by mouth two times a day as needed for constipation. - cephALEXin (KEFLEX) 500 mg capsule Take 500 mg by mouth three times a day. x 10 days for toe infection - furosemide (LASIX) 40 mg tablet Take 40 mg by mouth once daily. - LOSARTAN POTASSIUM, BULK, MISC - METOPROLOL SUCCINATE ORAL Take 25 mg by mouth once daily. - guaifenesin/phenyleph rine HCl (MUCINEX COLD ORAL) Take by mouth. - POTASSIUM CHLORATE, BULK, MISC - thiamine (THIAMILATE ORAL) Take 100 mg by mouth. - acetaminophen (TYLENOL) 325 mg tablet Take 650 mg by mouth every 4 hours as needed for pain. - omega-3s/dha/epa/fish oil/D3 (VITAMIN-D + OMEGA-3 ORAL) Take by mouth. Problem List As Of Date: 08/27/2023 (None) Encounter Status:Closed by TRA CORBIN LAURIE on 09/02/23 Normal [facility] .Auto Diffon 03-30-2022 Basophil, Absolute 0.1 10 3/mcL Normal 0.0-0.3 [facility] ([place]) Comment on above: Performed By: #### A PTT, GFR, PRO, BMP, TROPHS #### [address] [address] Basophils/100 WBC (Bld) 0.8 % Normal 0.0-2.5 [facility] ([place]) Comment on above: Performed By: #### A PTT, GFR, PRO, BMP, TROPHS #### [address] [address] Eosinophil, Absolute 0.4 10 3/mcL Normal 0.0-0.7 [facility] ([place]) Comment on above: Performed By: #### A PTT, GFR, PRO, BMP, TROPHS #### [address] [address] Eosinophils/100 WBC (Bld) 3.6 % Normal 0.0-6.0 [facility] ([place]) Comment on above: Performed By: #### A PTT, GFR, PRO, BMP, TROPHS #### [address] [address] Lymphocyte, Absolute 2.1 10 3/mcL Normal 0.9-4.3 [facility] ([place]) Comment on above: Performed By: #### A PTT, GFR, PRO, BMP, TROPHS #### [address] [address] Lymphocytes/100 WBC (Bld) 19.6 % Low 20.0-40.0 [facility] ([place]) Comment on above: Performed By: #### A PTT, GFR, PRO, BMP, TROPHS #### [address] [address] Monocyte, Absolute 1.2 10 3/mcL Normal 0.1-1.4 [facility] ([place]) Comment on above: Performed By: #### A PTT, GFR, PRO, BMP, TROPHS #### [address] [address] Monocytes/100 WBC (Bld) 11.2 % Normal 2.0-13.0 [facility] ([place]) Comment on above: Performed By: #### A PTT, GFR, PRO, BMP, TROPHS #### [address] [address] Neutrophils/100 WBC (Bld) 64.8 % Normal 50.0-75.0 [facility] ([place]) Comment on above: Performed By: #### A PTT, GFR, PRO, BMP, TROPHS #### [address] [address] .GFRon 03-30-2022 GFR >60 Normal [facility] ([place]) Comment on above: Result Comment: GFR Population mean for , Non- Americans Ages 20-29 = 116 mL/min/1.73 sq.m. Ages 30-39 = 107 mL/min/1.73 sq.m. Ages 40-49 = 99 mL/min/1.73 sq.m. Ages 50-59 = 93 mL/min/1.73 sq.m. Ages 60-69 = 85 mL/min/1.73 sq.m. Ages 70+ = 75 mL/min/1.73 sq.m. Chronic Kidney Disease: Less than 60 mL/min/1.73 square meters End Stage Renal Disease: Less than 15 mL/min/1.73 square meters Performed By: #### A PTT, GFR, PRO, BMP, TROPHS #### [address] [address] GFR Non- >60 Normal [facility] ([place]) Comment on above: Result Comment: GFR Population mean for , Non- Americans Ages 20-29 = 116 mL/min/1.73 sq.m. Ages 30-39 = 107 mL/min/1.73 sq.m. Ages 40-49 = 99 mL/min/1.73 sq.m. Ages 50-59 = 93 mL/min/1.73 sq.m. Ages 60-69 = 85 mL/min/1.73 sq.m. Ages 70+ = 75 mL/min/1.73 sq.m. Chronic Kidney Disease: Less than 60 mL/min/1.73 square meters End Stage Renal Disease: Less than 15 mL/min/1.73 square meters Performed By: #### A PTT, GFR, PRO, BMP, TROPHS #### [address] [address] .MDWon 03-30-2022 Monocyte Distribution Width Not performed Normal 0.00-20.00 [facility] ([place]) Comment on above: Result Comment: MDW testing performed only on adult ER patients between the ages of 18-89 years. Performed By: #### A PTT, GFR, PRO, BMP, TROPHS #### [place] [address] .NEUABSon 03-30-2022 Neutrophil, Absolute 7.1 10 3/mcL Normal 2.3-8.1 [facility] ([place]) Comment on above: Performed By: #### A PTT, GFR, PRO, BMP, TROPHS #### [place] [address] BMPon 03-30-2022 BUN/Creatinine Ratio 18.2 ratio Normal 10.0-22.0 [facility] ([place]) Comment on above: Performed By: #### A PTT, GFR, PRO, BMP, TROPHS #### [address] [address] Calcium [Mass/Vol] 9.6 mg/dL Normal 8.7-10.4 [facility] ([place] Comment on above: Performed By: #### A PTT, GFR, PRO, BMP, TROPHS #### [address] [address] Chloride [Moles/Vol] 109 mmol/L Normal 98-110 [facility] ([place] Comment on above: Performed By: #### A PTT, GFR, PRO, BMP, TROPHS #### [place] [id number] CO2 [Moles/Vol] 24 mmol/L Normal 22-32 [facility] ([place] Comment on above: Performed By: #### A PTT, GFR, PRO, BMP, TROPHS #### [address] [address] Creatinine [Mass/Vol] 0.77 mg/dL Normal 0.60-1.40 [facility] ([place] Comment on above: Performed By: #### A PTT, GFR, PRO, BMP, TROPHS #### [address] [address] Electrolyte Balance 9.0 mEq/L Normal 4.0-15.0 [facility] ([place] Comment on above: Performed By: #### A PTT, GFR, PRO, BMP, TROPHS #### [address] [address] Glucose [Mass/Vol] 90 mg/dL Normal 82-115 [facility] ([place] Comment on above: Performed By: #### A PTT, GFR, PRO, BMP, TROPHS #### [place] [id number] Potassium [Moles/Vol] 3.7 mmol/L Normal 3.5-5.0 [facility] ([place] Comment on above: Performed By: #### A PTT, GFR, PRO, BMP, TROPHS #### [address] [address] Sodium [Moles/Vol] 142 mmol/L Normal 136-145 [facility] ([place] Comment on above: Performed By: #### A PTT, GFR, PRO, BMP, TROPHS #### [address] [address] Urea nitrogen [Mass/Vol] 14.0 mg/dL Normal 8.0-22.0 [facility] ([place] Comment on above: Performed By: #### A PTT, GFR, PRO, BMP, TROPHS #### [address] [address] CBCon 03-30-2022 Erythrocyte distribution width (RBC) [Ratio] 11.4 % Low 11.5-15.5 [facility] ([place] Comment on above: Performed By: #### A PTT, GFR, PRO, BMP, TROPHS #### [place] [address] Hematocrit (Bld) [Volume fraction] 39.6 % Low 40.0-52.0 [facility] ([place] Comment on above: Performed By: #### A PTT, GFR, PRO, BMP, TROPHS #### [place] [address] Hgb 13.9 G/dL Normal 13.0-17.5 [facility] ([place] Comment on above: Performed By: #### A PTT, GFR, PRO, BMP, TROPHS #### [place] [address] MCH (RBC) [Entitic mass] 32.8 pg Normal 27.0-33.0 [facility] ([place] Comment on above: Performed By: #### A PTT, GFR, PRO, BMP, TROPHS #### [place] [address] MCHC 35.2 G/dL Normal 32.0-36.0 [facility] ([place] Comment on above: Performed By: #### A PTT, GFR, PRO, BMP, TROPHS #### [place] [address] MCV (RBC) [Entitic vol] 93.4 fL Normal 81.0-100.0 [facility] ([place] Comment on above: Performed By: #### A PTT, GFR, PRO, BMP, TROPHS #### [place] [address] Platelet 339 10 3/mcL Normal 150-450 [facility] ([place] Comment on above: Performed By: #### A PTT, GFR, PRO, BMP, TROPHS #### [place] [address] Platelet mean volume (Bld) [Entitic vol] 7.7 fL Normal 6.4-10.5 [facility] ([place] Comment on above: Performed By: #### A PTT, GFR, PRO, BMP, TROPHS #### [place] [id number] RBC 4.24 10 6/mcL Low 4.50-6.00 [facility] ([place] Comment on above: Performed By: #### A PTT, GFR, PRO, BMP, TROPHS #### [place] [address] WBC 10.9 10 3/mcL High 4.5-10.8 [facility] [place] Comment on above: Performed By: #### A PTT, GFR, PRO, BMP, TROPHS #### [place] [address] CVFLURVon 03-30-2022 Date of Onset 20220330 Invalid Interpretation Code [facility] [place] Comment on above: Performed By: #### A PTT, GFR, PRO, BMP, TROPHS #### [place] [address] Employed in Healthcare No Replaced By [facility] [place] Comment on above: Performed By: #### A PTT, GFR, PRO, BMP, TROPHS #### [place] [address] First Test Unknown Replaced By [facility] [place] Comment on above: Performed By: #### A PTT, GFR, PRO, BMP, TROPHS #### [place] [address] FLU A PCR Negative Normal Negative [facility] ([place] Comment on above: Result Comment: Note s 1990 Performed By: #### A PTT, GFR, PRO, BMP, TROPHS #### [place] [address] FLU B PCR Negative Normal Negative [facility] ([place] Comment on above: Result Comment: Note s 1990 Performed By: #### A PTT, GFR, PRO, BMP, TROPHS #### [place] [address] Hospitalized Yes Replaced By [facility] [place] Comment on above: Performed By: #### A PTT, GFR, PRO, BMP, TROPHS #### [place] [address] ICU No Replaced By [facility] [place] Comment on above: Performed By: #### A PTT, GFR, PRO, BMP, TROPHS #### [place] [address] Not Replaced By [facility] [place] Comment on above: Performed By: #### A PTT, GFR, PRO, BMP, TROPHS #### [place] [address] Resides in Congregate Care Setting Yes Replaced By [facility] [place] Comment on above: Performed By: #### A PTT, GFR, PRO, BMP, TROPHS #### [place] [address] RSV PCR Negative Normal Negative [facility] [place] Comment on above: Result Comment: Note s 1990 Performed By: #### A PTT, GFR, PRO, BMP, TROPHS #### [place] [address] SARS-CoV-2 (COVID-19) RNA ALEIDA+probe Ql (Unsp spec) Negative Normal Negative [facility] ([place] Comment on above: Result Comment: Note s 1990 This test has been authorized by FDA under an EUA for use by authorized laboratories and has not been FDA cleared or approved. Results from the Xpert Xpress SARS-CoV-2/Flu/RSV or Xpert Xpress SARS-CoV-2 only test should be correlated with the clinical history, epidemiological data, and other data available to the clinician evaluating the patient. Performance of the Xpert Xpress SARS-CoV-2/Flu/RSV or Xpert Xpress SARS-CoV-2 only test has only been established in nasopharyngeal swab specimens. Erroneous test results might occur from improper specimen collection; failure to follow the recommended sample collection, handling, and storage procedures; technical error; or sample mix-up. False negative results may occur if virus is present at levels below the analytical limit of detection. Viral nucleic acid may persist in vivo, independent of virus viability. Detection of analyte target(s) does not imply that the corresponding virus(es) are infectious or are the causative agents for clinical symptoms. Recent patient exposure to FluMist or other live attenuated influenza vaccines may cause inaccurate positive results. Performed By: #### A PTT, GFR, PRO, BMP, TROPHS #### [place] [address] Symptomatic as Defined by CDC No Replaced By [facility] [place] Comment on above: Performed By: #### A PTT, GFR, PRO, BMP, TROPHS #### [place] [address] LABORATORYOrdered By: Sera Lin on 03-30-2022 Date of Onset 20220330 Invalid Interpretation Code AH Auto Viro/Sero SS Employed in Healthcare No (03/30/22 3:02 PM) Invalid Interpretation Code AH Auto Viro/Sero SS First Test Unknown (03/30/22 3:02 PM) Invalid Interpretation Code AH Auto Viro/Sero SS FLU A PCR Negative 9 (03/30/22 3:02 PM) Invalid Interpretation Code Negative AH Auto Viro/Sero SS Comment on above: Result Comment: Note s 1990 FLU B PCR Negative 10 (03/30/22 3:02 PM) Invalid Interpretation Code Negative AH Auto Viro/Sero SS Comment on above: Result Comment: Note s 1990 Hospitalized Yes (03/30/22 3:02 PM) Invalid Interpretation Code AH Auto Viro/Sero SS ICU No (03/30/22 3:02 PM) Invalid Interpretation Code AH Auto Viro/Sero SS Not (03/30/22 3:02 PM) Invalid Interpretation Code AH Auto Viro/Sero SS Resides in Congregate Care Setting Yes (03/30/22 3:02 PM) Invalid Interpretation Code AH Auto Viro/Sero SS RSV PCR Negative 11 (03/30/22 3:02 PM) Invalid Interpretation Code Negative AH Auto Viro/Sero SS Comment on above: Result Comment: Note s 1990 SARS-CoV-2 (COVID-19) RNA ALEIDA+probe Ql (Unsp spec) Negative 8 (03/30/22 3:02 PM) Invalid Interpretation Code Negative AH Auto Viro/Sero SS Comment on above: Result Comment: Note s 1990 Symptomatic as Defined by CDC No (03/30/22 3:02 PM) Invalid Interpretation Code AH Auto Viro/Sero SS LABORATORYOrdered By: Felicia littlejohn on 03-30-2022 Blood Glucose Testing Reason Routine (03/30/22 7:23 AM) [facility] Glucose [Mass/Vol] 108 mg/dL Invalid Interpretation Code 82 - 115 mg/dL [facility] LABORATORYOrdered By: SYSTEM SYSTEM on 03-30-2022 Basophils (Bld) [#/Vol] 0.1 103/mcL Invalid Interpretation Code 0.0 - 0.3 10^3/mcL Workflow SS Basophils/100 WBC (Bld) 0.8 % Invalid Interpretation Code 0.0 - 2.5 % AH Workflow SS Calcium [Mass/Vol] 9.6 mg/dL Invalid Interpretation Code 8.7 - 10.4 mg/dL ADM SS Chloride [Moles/Vol] 109 mmol/L Invalid Interpretation Code 98 - 110 mEq/L ADM SS CO2 [Moles/Vol] 24 mmol/L Invalid Interpretation Code 22 - 32 mEq/L ADM SS Creatinine [Mass/Vol] 0.77 mg/dL Invalid Interpretation Code 0.60 - 1.40 mg/dL ADM SS Electrolyte Balance 9.0 mEq/L Invalid Interpretation Code 4.0 - 15.0 mEq/L ADM SS Eosinophils (Bld) [#/Vol] 0.4 103/mcL Invalid Interpretation Code 0.0 - 0.7 10^3/mcL Workflow SS Eosinophils/100 WBC (Bld) 3.6 % Invalid Interpretation Code 0.0 - 6.0 % Workflow SS Erythrocyte distribution width (RBC) [Ratio] 11.4 % Invalid Interpretation Code 11.5 - 15.5 % Workflow SS GFR/1.73 sq M.predicted among blacks MDRD (S/P/Bld) [Vol rate/Area] ml/min/1.73sqm Invalid Interpretation Code Chemistry S GFR/1.73 sq M.predicted among non-blacks MDRD (S/P/Bld) [Vol rate/Area] ml/min/1.73sqm Invalid Interpretation Code Chemistry S Glucose [Mass/Vol] 90 mg/dL Invalid Interpretation Code 82 - 115 mg/dL ADM SS Hematocrit (Bld) [Volume fraction] 39.6 % Invalid Interpretation Code 40.0 - 52.0 % Workflow SS Hemoglobin (Bld) [Mass/Vol] 13.9 G/dL Invalid Interpretation Code 13.0 - 17.5 G/dL Workflow SS Lymphocytes (Bld) [#/Vol] 2.1 103/mcL Invalid Interpretation Code 0.9 - 4.3 10^3/mcL AH Workflow SS Lymphocytes/100 WBC (Bld) 19.6 % Invalid Interpretation Code 20.0 - 40.0 % AH Workflow SS MCH (RBC) [Entitic mass] 32.8 pg Invalid Interpretation Code 27.0 - 33.0 pg AH Workflow SS MCHC 35.2 G/dL Invalid Interpretation Code 32.0 - 36.0 G/dL AH Workflow SS MCV (RBC) [Entitic vol] 93.4 fL Invalid Interpretation Code 81.0 - 100.0 fL AH Workflow SS Monocyte distribution width Auto (Bld) [Entitic vol] Not Performed 1 *NA* (03/30/22 4:30 AM) Invalid Interpretation Code 0.00 - 20.00 Hematology S Comment on above: Result Comment: MDW testing performed only on adult ER patients between the ages of 18-89 years. Monocytes (Bld) [#/Vol] 1.2 103/mcL Invalid Interpretation Code 0.1 - 1.4 10^3/mcL Workflow SS Monocytes/100 WBC (Bld) 11.2 % Invalid Interpretation Code 2.0 - 13.0 % AH Workflow SS Neutrophils (Bld) [#/Vol] 7.1 103/mcL Invalid Interpretation Code 2.3 - 8.1 10^3/mcL AH Workflow SS Neutrophils/100 WBC (Bld) 64.8 % Invalid Interpretation Code 50.0 - 75.0 % AH Workflow SS Platelet mean volume (Bld) [Entitic vol] 7.7 fL Invalid Interpretation Code 6.4 - 10.5 fL AH Workflow SS Platelets (Bld) [#/Vol] 339 103/mcL Invalid Interpretation Code 150 - 450 10^3/mcL AH Workflow SS Potassium [Moles/Vol] 3.7 mmol/L Invalid Interpretation Code 3.5 - 5.0 mEq/L AH ADM SS RBC (Bld) [#/Vol] 4.24 106/mcL Invalid Interpretation Code 4.50 - 6.00 10^6/mcL AH Workflow SS Sodium [Moles/Vol] 142 mmol/L Invalid Interpretation Code 136 - 145 mEq/L ADM SS Urea nitrogen [Mass/Vol] 14.0 mg/dL Invalid Interpretation Code 8.0 - 22.0 mg/dL ADM SS Urea nitrogen/Creatinine [Mass ratio] 18.2 ratio Invalid Interpretation Code 10.0 - 22.0 ratio AH ADM SS WBC 10.9 103/mcL Invalid Interpretation Code 4.5 - 10.8 10^3/mcL AH Workflow SS LABORATORYOrdered By: Vonda calero on 03-29-2022 Blood Glucose Testing Reason Routine (03/29/22 9:40 PM) [facility] Glucose [Mass/Vol] 106 mg/dL Invalid Interpretation Code 82 - 115 mg/dL [facility] LABORATORYOrdered By: Karyn Cordero on 03-29-2022 Glucose [Mass/Vol] 101 mg/dL Invalid Interpretation Code 82 - 115 mg/dL [facility] LABORATORYOrdered By: Petr Miller on 03-29-2022 Blood Glucose Testing Reason Routine (03/29/22 11:46 AM) [facility] MRI BRAIN W/ + W/O CONTRASTo n 03-29-2022 MRI BRAIN W/ + W/O CONTRAST ORIGINAL EXAMINATION: MRI OF THE BRAIN WITHOUT AND WITH CONTRAST 03/29/2022 3:31 pm TECHNIQUE: Multiplanar multisequence MRI of the head/brain was performed without and with the administration of intravenous contrast. COMPARISON: None. HISTORY: ORDERING SYSTEM PROVIDED HISTORY: Reason for Exam: post-seizure FINDINGS: INTRACRANIAL STRUCTURES/VENTRICLES : In the left periventricular white matter there is a 3.1 x 1.6 cm area of restricted diffusion. 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 There is an area of old cortical infarct in the left parietal lobe laterally measuring 2 x 0.5 cm. No mass effect or midline shift. No evidence of an acute intracranial hemorrhage. There is mild central atrophy.. The sellar/suprasellar regions appear unremarkable. The normal signal voids within the major intracranial vessels appear maintained. No abnormal focus of enhancement is seen within the brain. ORBITS: The visualized portion of the orbits demonstrate no acute abnormality. SINUSES: The visualized paranasal sinuses and mastoid air cells are well aerated. BONES/SOFT TISSUES: The bone marrow signal intensity appears normal. The soft tissues demonstrate no acute abnormality. IMPRESSION: Recent area of infarct in the left periventricular white matter. 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 Interpreted by: Joaquin Key MD Preliminary Report By: Joaquin Key MD Electronically signed By Joaquin Key MD Dictated Date: 03/29/2022 5:21:48 PM Prelim Date: 03/29/2022 5:30:08 PM Sign Date: 03/29/2022 5:30:08 PM Ordering Provider: NERY Crow [facility] ([place]) .Auto Diffon 03-28-2022 Basophil, Absolute 0.1 10 3/mcL Normal 0.0-0.3 [facility] ([place]) Comment on above: Performed By: #### A PTT, GFR, PRO, BMP, TROPHS #### [address] [address] Basophils/100 WBC (Bld) 1.3 % Normal 0.0-2.5 [facility] ([place]) Comment on above: Performed By: #### A PTT, GFR, PRO, BMP, TROPHS #### [address] [address] Eosinophil, Absolute 0.5 10 3/mcL Normal 0.0-0.7 [facility] ([place]) Comment on above: Performed By: #### A PTT, GFR, PRO, BMP, TROPHS #### [address] [address] Eosinophils/100 WBC (Bld) 5.9 % Normal 0.0-6.0 [facility] ([place] Comment on above: Performed By: #### A PTT, GFR, PRO, BMP, TROPHS #### [address] [address] Lymphocyte, Absolute 2.2 10 3/mcL Normal 0.9-4.3 [facility] ([place] Comment on above: Performed By: #### A PTT, GFR, PRO, BMP, TROPHS #### [address] [address] Lymphocytes/100 WBC (Bld) 27.2 % Normal 20.0-40.0 [facility] ([place] Comment on above: Performed By: #### A PTT, GFR, PRO, BMP, TROPHS #### [address] [address] Monocyte, Absolute 1.1 10 3/mcL Normal 0.1-1.4 [facility] ([place] Comment on above: Performed By: #### A PTT, GFR, PRO, BMP, TROPHS #### [address] [address] Monocytes/100 WBC (Bld) 13.5 % High 2.0-13.0 [facility] ([place]) Comment on above: Performed By: #### A PTT, GFR, PRO, BMP, TROPHS #### [address] [address] Neutrophils/100 WBC (Bld) 52.1 % Normal 50.0-75.0 [facility] ([place]) Comment on above: Performed By: #### A PTT, GFR, PRO, BMP, TROPHS #### [address] [address] Basophil, Absolute 0.1 10 3/mcL Normal 0.0-0.3 [facility] ([place]) Comment on above: Performed By: #### A PTT, GFR, PRO, BMP, TROPHS #### [address] [address] Basophils/100 WBC (Bld) 1.2 % Normal 0.0-2.5 [facility] ([place]) Comment on above: Performed By: #### A PTT, GFR, PRO, BMP, TROPHS #### [address] [address] Eosinophil, Absolute 0.4 10 3/mcL Normal 0.0-0.7 [facility] ([place]) Comment on above: Performed By: #### A PTT, GFR, PRO, BMP, TROPHS #### [address] [address] Eosinophils/100 WBC (Bld) 4.1 % Normal 0.0-6.0 [facility] ([place]) Comment on above: Performed By: #### A PTT, GFR, PRO, BMP, TROPHS #### [address] [address] Lymphocyte, Absolute 2.3 10 3/mcL Normal 0.9-4.3 [facility] ([place]) Comment on above: Performed By: #### A PTT, GFR, PRO, BMP, TROPHS #### [address] [address] Lymphocytes/100 WBC (Bld) 24.6 % Normal 20.0-40.0 [facility] ([place] Comment on above: Performed By: #### A PTT, GFR, PRO, BMP, TROPHS #### [address] [address] Monocyte, Absolute 1.4 10 3/mcL Normal 0.1-1.4 [facility] ([place]) Comment on above: Performed By: #### A PTT, GFR, PRO, BMP, TROPHS #### [address] [address] Monocytes/100 WBC (Bld) 15.7 % High 2.0-13.0 [facility] ([place] Comment on above: Performed By: #### A PTT, GFR, PRO, BMP, TROPHS #### [address] [address] Neutrophils/100 WBC (Bld) 54.4 % Normal 50.0-75.0 [facility] ([place] Comment on above: Performed By: #### A PTT, GFR, PRO, BMP, TROPHS #### [address] [address] .GFRon 03-28-2022 GFR >60 Normal [facility] ([place]) Comment on above: Result Comment: GFR Population mean for , Non- Americans Ages 20-29 = 116 mL/min/1.73 sq.m. Ages 30-39 = 107 mL/min/1.73 sq.m. Ages 40-49 = 99 mL/min/1.73 sq.m. Ages 50-59 = 93 mL/min/1.73 sq.m. Ages 60-69 = 85 mL/min/1.73 sq.m. Ages 70+ = 75 mL/min/1.73 sq.m. Chronic Kidney Disease: Less than 60 mL/min/1.73 square meters End Stage Renal Disease: Less than 15 mL/min/1.73 square meters Performed By: #### A PTT, GFR, PRO, BMP, TROPHS #### [address] [address] GFR Non- >60 Normal [facility] ([place] Comment on above: Result Comment: GFR Population mean for , Non- Americans Ages 20-29 = 116 mL/min/1.73 sq.m. Ages 30-39 = 107 mL/min/1.73 sq.m. Ages 40-49 = 99 mL/min/1.73 sq.m. Ages 50-59 = 93 mL/min/1.73 sq.m. Ages 60-69 = 85 mL/min/1.73 sq.m. Ages 70+ = 75 mL/min/1.73 sq.m. Chronic Kidney Disease: Less than 60 mL/min/1.73 square meters End Stage Renal Disease: Less than 15 mL/min/1.73 square meters Performed By: #### A PTT, GFR, PRO, BMP, TROPHS #### [address] [address] GFR Non- >60 Normal [facility] ([place] Comment on above: Result Comment: GFR Population mean for , Non- Americans Ages 20-29 = 116 mL/min/1.73 sq.m. Ages 30-39 = 107 mL/min/1.73 sq.m. Ages 40-49 = 99 mL/min/1.73 sq.m. Ages 50-59 = 93 mL/min/1.73 sq.m. Ages 60-69 = 85 mL/min/1.73 sq.m. Ages 70+ = 75 mL/min/1.73 sq.m. Chronic Kidney Disease: Less than 60 mL/min/1.73 square meters End Stage Renal Disease: Less than 15 mL/min/1.73 square meters Performed By: #### A PTT, GFR, PRO, BMP, TROPHS #### [address] [address] GFR >60 Normal [facility] ([place]) Comment on above: Result Comment: GFR Population mean for , Non- Americans Ages 20-29 = 116 mL/min/1.73 sq.m. Ages 30-39 = 107 mL/min/1.73 sq.m. Ages 40-49 = 99 mL/min/1.73 sq.m. Ages 50-59 = 93 mL/min/1.73 sq.m. Ages 60-69 = 85 mL/min/1.73 sq.m. Ages 70+ = 75 mL/min/1.73 sq.m. Chronic Kidney Disease: Less than 60 mL/min/1.73 square meters End Stage Renal Disease: Less than 15 mL/min/1.73 square meters Performed By: #### A PTT, GFR, PRO, BMP, TROPHS #### [address] [address] .MDWon 03-28-2022 Monocyte Distribution Width Not performed Normal 0.00-20.00 [facility] ([place] Comment on above: Result Comment: MDW testing performed only on adult ER patients between the ages of 18-89 years. Performed By: #### A PTT, GFR, PRO, BMP, TROPHS #### [place] [address] Monocyte Distribution Width Not performed Normal 0.00-20.00 [facility] ([place] Comment on above: Result Comment: MDW testing performed only on adult ER patients between the ages of 18-89 years. Performed By: #### A PTT, GFR, PRO, BMP, TROPHS #### [address] [address] .NEUABSon 03-28-2022 Neutrophil, Absolute 4.2 10 3/mcL Normal 2.3-8.1 [facility] ([place] Comment on above: Performed By: #### A PTT, GFR, PRO, BMP, TROPHS #### [place] [address] Neutrophil, Absolute 5.0 10 3/mcL Normal 2.3-8.1 [facility] ([place] Comment on above: Performed By: #### A PTT, GFR, PRO, BMP, TROPHS #### [place] [id number] Margarita 03-28-2022 Ammonia 63 mcmol/l High 11-32 [facility] ([place] Comment on above: Result Comment: Spec imen slightly hemolyzed. Performed By: #### A PTT, GFR, PRO, BMP, TROPHS #### [address] [address] BMPon 03-28-2022 BUN/Creatinine Ratio 19.5 ratio Normal 10.0-22.0 [facility] ([place] Comment on above: Performed By: #### A PTT, GFR, PRO, BMP, TROPHS #### [place] [id number] Calcium [Mass/Vol] 9.5 mg/dL Normal 8.7-10.4 [facility] ([place] Comment on above: Performed By: #### A PTT, GFR, PRO, BMP, TROPHS #### [place] [address] Chloride [Moles/Vol] 111 mmol/L High 98-110 [facility] ([place] Comment on above: Performed By: #### A PTT, GFR, PRO, BMP, TROPHS #### [place] [address] CO2 [Moles/Vol] 22 mmol/L Normal 22-32 [facility] ([place] Comment on above: Performed By: #### A PTT, GFR, PRO, BMP, TROPHS #### [place] [address] Creatinine [Mass/Vol] 0.77 mg/dL Normal 0.60-1.40 [facility] ([place] Comment on above: Performed By: #### A PTT, GFR, PRO, BMP, TROPHS #### [place] [address] Electrolyte Balance 11.0 mEq/L Normal 4.0-15.0 [facility] ([place] Comment on above: Performed By: #### A PTT, GFR, PRO, BMP, TROPHS #### [place] [id number] Glucose [Mass/Vol] 94 mg/dL Normal 82-115 [facility] ([place] Comment on above: Performed By: #### A PTT, GFR, PRO, BMP, TROPHS #### [place] [id number] Potassium [Moles/Vol] 4.0 mmol/L Normal 3.5-5.0 [facility] ([place] Comment on above: Result Comment: Spec imen slightly hemolyzed. Performed By: #### A PTT, GFR, PRO, BMP, TROPHS #### [place] [id number] Sodium [Moles/Vol] 144 mmol/L Normal 136-145 [facility] ([place] Comment on above: Performed By: #### A PTT, GFR, PRO, BMP, TROPHS #### [place] [id number] Urea nitrogen [Mass/Vol] 15.0 mg/dL Normal 8.0-22.0 [facility] ([place]) Comment on above: Performed By: #### A PTT, GFR, PRO, BMP, TROPHS #### [place] [id number] CBCon 03-28-2022 Erythrocyte distribution width (RBC) [Ratio] 11.2 % Low 11.5-15.5 [facility] ([place]) Comment on above: Performed By: #### G FR, BMP #### [place] [id number] Hematocrit (Bld) [Volume fraction] 38.1 % Low 40.0-52.0 [facility] ([place] Comment on above: Performed By: #### G FR, BMP #### [place] [id number] Hgb 13.4 G/dL Normal 13.0-17.5 [facility] ([place] Comment on above: Performed By: #### G FR, BMP #### [place] [id number] MCH (RBC) [Entitic mass] 33.4 pg High 27.0-33.0 [facility] ([place] Comment on above: Performed By: #### G FR, BMP #### [place] [id number] MCHC 35.1 G/dL Normal 32.0-36.0 [facility] ([place] Comment on above: Performed By: #### G FR, BMP #### [address] [address] MCV (RBC) [Entitic vol] 95.0 fL Normal 81.0-100.0 [facility] ([place] Comment on above: Performed By: #### G FR, BMP #### [address] [address] Platelet 319 10 3/mcL Normal 150-450 [facility] ([place] Comment on above: Performed By: #### G FR, BMP #### [address] [address] Platelet mean volume (Bld) [Entitic vol] 8.1 fL Normal 6.4-10.5 [facility] ([place] Comment on above: Performed By: #### G FR, BMP #### [place] [id number] RBC 4.00 10 6/mcL Low 4.50-6.00 [facility] ([place] Comment on above: Performed By: #### G FR, BMP #### [address] [address] WBC 8.1 10 3/mcL Normal 4.5-10.8 [facility] ([place] Comment on above: Performed By: #### G FR, BMP #### [place] [address] Erythrocyte distribution width (RBC) [Ratio] 11.5 % Normal 11.5-15.5 [facility] ([place] Comment on above: Performed By: #### A PTT, GFR, PRO, BMP, TROPHS #### [address] [address] Hematocrit (Bld) [Volume fraction] 38.0 % Low 40.0-52.0 [facility] [place] Comment on above: Performed By: #### A PTT, GFR, PRO, BMP, TROPHS #### [address] [address] Hgb 13.4 G/dL Normal 13.0-17.5 [facility] ([place] Comment on above: Performed By: #### A PTT, GFR, PRO, BMP, TROPHS #### [place] [address] MCH (RBC) [Entitic mass] 33.4 pg High 27.0-33.0 [facility] ([place] Comment on above: Performed By: #### A PTT, GFR, PRO, BMP, TROPHS #### [place] [address] MCHC 35.4 G/dL Normal 32.0-36.0 [facility] ([place] Comment on above: Performed By: #### A PTT, GFR, PRO, BMP, TROPHS #### [place] [address] MCV (RBC) [Entitic vol] 94.3 fL Normal 81.0-100.0 [facility] ([place] Comment on above: Performed By: #### A PTT, GFR, PRO, BMP, TROPHS #### [place] [address] Platelet 339 10 3/mcL Normal 150-450 [facility] ([place] Comment on above: Performed By: #### A PTT, GFR, PRO, BMP, TROPHS #### [place] [address] Platelet mean volume (Bld) [Entitic vol] 7.5 fL Normal 6.4-10.5 [facility] ([place] Comment on above: Performed By: #### A PTT, GFR, PRO, BMP, TROPHS #### [place] [address] RBC 4.03 10 6/mcL Low 4.50-6.00 [facility] ([place] Comment on above: Performed By: #### A PTT, GFR, PRO, BMP, TROPHS #### [place] [address] WBC 9.2 10 3/mcL Normal 4.5-10.8 [facility] ([place] Comment on above: Performed By: #### A PTT, GFR, PRO, BMP, TROPHS #### [address] [address] CKon 03-28-2022 CK [Catalytic activity/Vol] 118 U/L Normal 7-185 [facility] ([place]) Comment on above: Result Comment: Spec imen slightly hemolyzed. Performed By: #### A PTT, GFR, PRO, BMP, TROPHS #### [address] [address] CMPon 03-28-2022 Albumin Level 3.4 G/dL Normal 3.2-4.8 [facility] ([place] Comment on above: Performed By: #### A PTT, GFR, PRO, BMP, TROPHS #### [address] [address] Albumin/Globulin [Mass ratio] 1.2 {ratio} Normal 0.9-1.6 [facility] ([place] Comment on above: Performed By: #### A PTT, GFR, PRO, BMP, TROPHS #### [address] [address] ALP [Catalytic activity/Vol] 92 U/L Normal 38-126 [facility] ([place] Comment on above: Performed By: #### A PTT, GFR, PRO, BMP, TROPHS #### [address] [address] ALT [Catalytic activity/Vol] 26 U/L Normal 12-55 [facility] ([place] Comment on above: Performed By: #### A PTT, GFR, PRO, BMP, TROPHS #### [address] [address] AST [Catalytic activity/Vol] 21 U/L Normal 8-34 [facility] ([place] Comment on above: Performed By: #### A PTT, GFR, PRO, BMP, TROPHS #### [place] [id number] Bili Total 1.10 mg/dL Normal 0.20-1.20 [facility] ([place]) Comment on above: Result Comment: Use of this assay is not recommended for patients undergoing treatment with eltrombopag due to the potential for falsely elevated results. Performed By: #### A PTT, GFR, PRO, BMP, TROPHS #### [place] [address] BUN/Creatinine Ratio 21.7 ratio Normal 10.0-22.0 [facility] [place]) Comment on above: Performed By: #### A PTT, GFR, PRO, BMP, TROPHS #### [address] [address] Calcium [Mass/Vol] 9.4 mg/dL Normal 8.7-10.4 [facility] ([place] Comment on above: Performed By: #### A PTT, GFR, PRO, BMP, TROPHS #### [place] [id number] Chloride [Moles/Vol] 109 mmol/L Normal 98-110 [facility] ([place]) Comment on above: Performed By: #### A PTT, GFR, PRO, BMP, TROPHS #### [place] [id number] CO2 [Moles/Vol] 23 mmol/L Normal 22-32 [facility] ([place] Comment on above: Performed By: #### A PTT, GFR, PRO, BMP, TROPHS #### [place] [address] Creatinine [Mass/Vol] 0.83 mg/dL Normal 0.60-1.40 [facility] ([place]) Comment on above: Performed By: #### A PTT, GFR, PRO, BMP, TROPHS #### [place] [id number] Electrolyte Balance 12.0 mEq/L Normal 4.0-15.0 [facility] ([place] Comment on above: Performed By: #### A PTT, GFR, PRO, BMP, TROPHS #### [place] [id number] Globulin 2.8 G/dL Normal 1.5-3.8 [facility] ([place] Comment on above: Performed By: #### A PTT, GFR, PRO, BMP, TROPHS #### [place] [id number] Glucose [Mass/Vol] 109 mg/dL Normal 82-115 [facility] [place] Comment on above: Performed By: #### A PTT, GFR, PRO, BMP, TROPHS #### [address] [address] Potassium [Moles/Vol] 3.7 mmol/L Normal 3.5-5.0 [facility] ([place]) Comment on above: Result Comment: Spec imen slightly hemolyzed. Performed By: #### A PTT, GFR, PRO, BMP, TROPHS #### [address] [address] Sodium [Moles/Vol] 144 mmol/L Normal 136-145 [facility] [place] Comment on above: Performed By: #### A PTT, GFR, PRO, BMP, TROPHS #### [address] [address] Total Protein 6.2 G/dL Normal 5.7-8.2 [facility] ([place]) Comment on above: Result Comment: No te - New Reference Range in effect 20 Performed By: #### A PTT, GFR, PRO, BMP, TROPHS #### [address] [address] Urea nitrogen [Mass/Vol] 18.0 mg/dL Normal 8.0-22.0 [facility] ([place] Comment on above: Performed By: #### A PTT, GFR, PRO, BMP, TROPHS #### [address] [address] LABORATORYOrdered By: SYSTEM SYSTEM on 03-28-2022 Basophils (Bld) [#/Vol] 0.1 103/mcL Invalid Interpretation Code 0.0 - 0.3 10^3/mcL AH Workflow SS Basophils/100 WBC (Bld) 1.3 % Invalid Interpretation Code 0.0 - 2.5 % AH Workflow SS Calcium [Mass/Vol] 9.5 mg/dL Invalid Interpretation Code 8.7 - 10.4 mg/dL AH ADM SS Chloride [Moles/Vol] 111 mmol/L Invalid Interpretation Code 98 - 110 mEq/L AH ADM SS CO2 [Moles/Vol] 22 mmol/L Invalid Interpretation Code 22 - 32 mEq/L AH ADM SS Creatinine [Mass/Vol] 0.77 mg/dL Invalid Interpretation Code 0.60 - 1.40 mg/dL ADM SS Electrolyte Balance 11.0 mEq/L Invalid Interpretation Code 4.0 - 15.0 mEq/L ADM SS Eosinophils (Bld) [#/Vol] 0.5 103/mcL Invalid Interpretation Code 0.0 - 0.7 10^3/mcL Workflow SS Eosinophils/100 WBC (Bld) 5.9 % Invalid Interpretation Code 0.0 - 6.0 % Workflow SS Erythrocyte distribution width (RBC) [Ratio] 11.2 % Invalid Interpretation Code 11.5 - 15.5 % Workflow SS GFR/1.73 sq M.predicted among blacks MDRD (S/P/Bld) [Vol rate/Area] ml/min/1.73sqm Invalid Interpretation Code Chemistry S GFR/1.73 sq M.predicted among non-blacks MDRD (S/P/Bld) [Vol rate/Area] ml/min/1.73sqm Invalid Interpretation Code Chemistry S Glucose [Mass/Vol] 94 mg/dL Invalid Interpretation Code 82 - 115 mg/dL ADM SS Hematocrit (Bld) [Volume fraction] 38.1 % Invalid Interpretation Code 40.0 - 52.0 % Workflow SS Hemoglobin (Bld) [Mass/Vol] 13.4 G/dL Invalid Interpretation Code 13.0 - 17.5 G/dL Workflow SS Lymphocytes (Bld) [#/Vol] 2.2 103/mcL Invalid Interpretation Code 0.9 - 4.3 10^3/mcL Workflow SS Lymphocytes/100 WBC (Bld) 27.2 % Invalid Interpretation Code 20.0 - 40.0 % Workflow SS MCH (RBC) [Entitic mass] 33.4 pg Invalid Interpretation Code 27.0 - 33.0 pg Workflow SS MCHC 35.1 G/dL Invalid Interpretation Code 32.0 - 36.0 G/dL Workflow SS MCV (RBC) [Entitic vol] 95.0 fL Invalid Interpretation Code 81.0 - 100.0 fL Workflow SS Monocyte distribution width Auto (Bld) [Entitic vol] Not Performed 2 *NA* (03/28/22 6:33 AM) Invalid Interpretation Code 0.00 - 20.00 Hematology S Comment on above: Result Comment: MDW testing performed only on adult ER patients between the ages of 18-89 years. Monocytes (Bld) [#/Vol] 1.1 103/mcL Invalid Interpretation Code 0.1 - 1.4 10^3/mcL AH Workflow SS Monocytes/100 WBC (Bld) 13.5 % Invalid Interpretation Code 2.0 - 13.0 % AH Workflow SS Neutrophils (Bld) [#/Vol] 4.2 103/mcL Invalid Interpretation Code 2.3 - 8.1 10^3/mcL AH Workflow SS Neutrophils/100 WBC (Bld) 52.1 % Invalid Interpretation Code 50.0 - 75.0 % AH Workflow SS Platelet mean volume (Bld) [Entitic vol] 8.1 fL Invalid Interpretation Code 6.4 - 10.5 fL Workflow SS Platelets (Bld) [#/Vol] 319 103/mcL Invalid Interpretation Code 150 - 450 10^3/mcL AH Workflow SS Potassium [Moles/Vol] 4.0 mmol/L Invalid Interpretation Code 3.5 - 5.0 mEq/L ADM SS Comment on above: Result Comment: Spec imen slightly hemolyzed. RBC (Bld) [#/Vol] 4.00 106/mcL Invalid Interpretation Code 4.50 - 6.00 10^6/mcL AH Workflow SS Sodium [Moles/Vol] 144 mmol/L Invalid Interpretation Code 136 - 145 mEq/L AH ADM SS Urea nitrogen [Mass/Vol] 15.0 mg/dL Invalid Interpretation Code 8.0 - 22.0 mg/dL AH ADM SS Urea nitrogen/Creatinine [Mass ratio] 19.5 ratio Invalid Interpretation Code 10.0 - 22.0 ratio AH ADM SS WBC 8.1 103/mcL Invalid Interpretation Code 4.5 - 10.8 10^3/mcL AH Workflow SS Troponin I.cardiac DL <= 0.01 ng/mL [Mass/Vol] 16.13 ng/L Invalid Interpretation Code 0.00 - 54.00 ng/L AH ADM SS LACon 03-28-2022 Lactic Acid Lvl 1.6 mmol/L Normal 0.2-2.0 [facility] ([place]) Comment on above: Performed By: #### A PTT, GFR, PRO, BMP, TROPHS #### [place] [address] MGon 03-28-2022 Magnesium [Mass/Vol] 2.0 mg/dL Normal 1.6-2.4 [facility] ([place]) Comment on above: Performed By: #### A PTT, GFR, PRO, BMP, TROPHS #### [address] [address] PBNPon 03-28-2022 Natriuretic peptide B (Bld) [Mass/Vol] 485 pg/mL Normal 0-900 [facility] ([place]) Comment on above: Result Comment: NT-p roBNP results of less than 300 pg/mL effectively rules out acute congestive heart failure with 99% negative predictive value. Performed By: #### A PTT, GFR, PRO, BMP, TROPHS #### [address] [address] PROon 03-28-2022 INR Coag (PPP) [Relative time] 1.1 {INR} Normal [facility] ([place]) Comment on above: Result Comment: The [employer] (CHEST, 1992, 102:[id number]) recommended therapeutic range for oral anticoagulant therapy is: LOW RISK: Prophylaxis of venous thrombosis INR: 2.0-3.0 Treatment of pulmonary embolism 2.0-3.0 Prevention of systemic embolism 2.0-3.0 HIGH RISK: Mechanical prosthetic valves 2.5-3.5 Performed By: #### A PTT, GFR, PRO, BMP, TROPHS #### [address] [address] PT Coag (PPP) [Time] 13.3 s Normal 9.0-14.9 [facility] ([place]) Comment on above: Result Comment: Effe ctive 03/06/08, Protime results may be affected by some antibiotics (i.e. Ciprofloxacin, Azithromycin, Bactrim) which may potentiate the action of oral anticoagulants, with further increases in Protime/INR. Performed By: #### A PTT, GFR, PRO, BMP, TROPHS #### [address] [address] TROPHSon 03-28-2022 Troponin I High Sensitivity 16.13 ng/L Normal 0.00-54.00 [facility] ([place]) Comment on above: Result Comment: If t he High Sensitive Troponin result is below the 99th percentile value (<45 ng/L) at the first blood draw, at least two additional blood samples should be drawn before results are interpreted as negative for AMI. Performed By: #### A PTT, GFR, PRO, BMP, TROPHS #### [address] [address] Troponin I High Sensitivity 20.88 ng/L Normal 0.00-54.00 [facility] ([place]) Comment on above: Result Comment: If t he High Sensitive Troponin result is below the 99th percentile value (<45 ng/L) at the first blood draw, at least two additional blood samples should be drawn before results are interpreted as negative for AMI. Performed By: #### A PTT, GFR, PRO, BMP, TROPHS #### [place] [id number] TSHon 03-28-2022 TSH 4.308 mIU/mL Normal 0.550-4.780 [facility] ([place]) Comment on above: Result Comment: No te - New Reference Range in effect 20 Performed By: #### A PTT, GFR, PRO, BMP, TROPHS #### [place] [address] XR CHEST 1 VIEWon 03-28-2022 XR CHEST 1 VIEW ORIGINAL EXAMINATION: ONE XRAY VIEW OF THE CHEST 03/28/2022 7:42 am COMPARISON: Chest x-ray 03/27/2022, 03/10/2022 HISTORY: ORDERING SYSTEM PROVIDED HISTORY: Reason for Exam: Chest Pain FINDINGS: The cardiomediastinal silhouette is enlarged but stable. No consolidation or vascular congestion. No pleural effusion or pneumothorax. Multiple left-sided remote rib fractures are noted. IMPRESSION: No acute process. I have personally reviewed the images of this examination and agree with the resident's findings and interpretation. Interpreted by: Palomo Jaquez MD Preliminary Report By: Keaton Moss Electronically signed By Palomo Jaquez MD Dictated Date: 03/28/2022 7:46:07 AM Prelim Date: 03/28/2022 8:06:05 AM Sign Date: 03/28/2022 8:06:05 AM Ordering Provider: NERY Crow [facility] ([place]) .Auto Diffon 03-27-2022 Basophil, Absolute 0.1 10 3/mcL Normal 0.0-0.3 [facility] ([place]) Comment on above: Performed By: #### A PTT, GFR, PRO, BMP, TROPHS #### [address] [address] Basophils/100 WBC (Bld) 1.2 % Normal 0.0-2.5 [facility] ([place]) Comment on above: Performed By: #### A PTT, GFR, PRO, BMP, TROPHS #### [address] [address] Eosinophil, Absolute 0.2 10 3/mcL Normal 0.0-0.7 [facility] ([place]) Comment on above: Performed By: #### A PTT, GFR, PRO, BMP, TROPHS #### [address] [address] Eosinophils/100 WBC (Bld) 2.7 % Normal 0.0-6.0 [facility] ([place] Comment on above: Performed By: #### A PTT, GFR, PRO, BMP, TROPHS #### [address] [address] Lymphocyte, Absolute 1.5 10 3/mcL Normal 0.9-4.3 [facility] ([place] Comment on above: Performed By: #### A PTT, GFR, PRO, BMP, TROPHS #### [address] [address] Lymphocytes/100 WBC (Bld) 18.0 % Low 20.0-40.0 [facility] ([place] Comment on above: Performed By: #### A PTT, GFR, PRO, BMP, TROPHS #### [address] [address] Monocyte, Absolute 1.1 10 3/mcL Normal 0.1-1.4 [facility] ([place] Comment on above: Performed By: #### A PTT, GFR, PRO, BMP, TROPHS #### [address] [address] Monocytes/100 WBC (Bld) 12.8 % Normal 2.0-13.0 [facility] ([place] Comment on above: Performed By: #### A PTT, GFR, PRO, BMP, TROPHS #### [address] [address] Neutrophils/100 WBC (Bld) 65.3 % Normal 50.0-75.0 [facility] ([place] Comment on above: Performed By: #### A PTT, GFR, PRO, BMP, TROPHS #### [address] [address] .GFRon 03-27-2022 GFR >60 Normal [facility] ([place]) Comment on above: Result Comment: GFR Population mean for , Non- Americans Ages 20-29 = 116 mL/min/1.73 sq.m. Ages 30-39 = 107 mL/min/1.73 sq.m. Ages 40-49 = 99 mL/min/1.73 sq.m. Ages 50-59 = 93 mL/min/1.73 sq.m. Ages 60-69 = 85 mL/min/1.73 sq.m. Ages 70+ = 75 mL/min/1.73 sq.m. Chronic Kidney Disease: Less than 60 mL/min/1.73 square meters End Stage Renal Disease: Less than 15 mL/min/1.73 square meters Performed By: #### A PTT, GFR, PRO, BMP, TROPHS #### [address] [address] GFR Non- >60 Normal [facility] ([place]) Comment on above: Result Comment: GFR Population mean for , Non- Americans Ages 20-29 = 116 mL/min/1.73 sq.m. Ages 30-39 = 107 mL/min/1.73 sq.m. Ages 40-49 = 99 mL/min/1.73 sq.m. Ages 50-59 = 93 mL/min/1.73 sq.m. Ages 60-69 = 85 mL/min/1.73 sq.m. Ages 70+ = 75 mL/min/1.73 sq.m. Chronic Kidney Disease: Less than 60 mL/min/1.73 square meters End Stage Renal Disease: Less than 15 mL/min/1.73 square meters Performed By: #### A PTT, GFR, PRO, BMP, TROPHS #### [address] [address] .MDWon 03-27-2022 Monocyte Distribution Width 21.99 High 0.00-20.00 [facility] ([place]) Comment on above: Result Comment: For adults in ED, MDW>20.0 may be associated with a higher risk of sepsis during the first 12hrs of hospital admission Performed By: #### A PTT, GFR, PRO, BMP, TROPHS #### [address] [address] .NEUABSon 03-27-2022 Neutrophil, Absolute 5.6 10 3/mcL Normal 2.3-8.1 [facility] ([place]) Comment on above: Performed By: #### A PTT, GFR, PRO, BMP, TROPHS #### [place] [address] BMPon 03-27-2022 BUN/Creatinine Ratio 20.7 ratio Normal 10.0-22.0 [facility] ([place]) Comment on above: Performed By: #### A PTT, GFR, PRO, BMP, TROPHS #### [place] [id number] Calcium [Mass/Vol] 10.4 mg/dL Normal 8.7-10.4 [facility] ([place]) Comment on above: Performed By: #### A PTT, GFR, PRO, BMP, TROPHS #### [address] [address] Chloride [Moles/Vol] 107 mmol/L Normal 98-110 [facility] ([place] Comment on above: Performed By: #### A PTT, GFR, PRO, BMP, TROPHS #### [address] [address] CO2 [Moles/Vol] 22 mmol/L Normal 22-32 [facility] ([place]) Comment on above: Performed By: #### A PTT, GFR, PRO, BMP, TROPHS #### [address] [address] Creatinine [Mass/Vol] 0.92 mg/dL Normal 0.60-1.40 [facility] ([place]) Comment on above: Performed By: #### A PTT, GFR, PRO, BMP, TROPHS #### [place] [address] Electrolyte Balance 9.0 mEq/L Normal 4.0-15.0 [facility] ([place] Comment on above: Performed By: #### A PTT, GFR, PRO, BMP, TROPHS #### [place] [address] Glucose [Mass/Vol] 122 mg/dL High 82-115 [facility] ([place] Comment on above: Performed By: #### A PTT, GFR, PRO, BMP, TROPHS #### [place] [address] Potassium [Moles/Vol] 3.6 mmol/L Normal 3.5-5.0 [facility] ([place] Comment on above: Performed By: #### A PTT, GFR, PRO, BMP, TROPHS #### [place] [id number] Sodium [Moles/Vol] 138 mmol/L Normal 136-145 [facility] ([place] Comment on above: Performed By: #### A PTT, GFR, PRO, BMP, TROPHS #### [place] [address] Urea nitrogen [Mass/Vol] 19.0 mg/dL Normal 8.0-22.0 [facility] ([place] Comment on above: Performed By: #### A PTT, GFR, PRO, BMP, TROPHS #### [address] [address] CBCon 03-27-2022 Erythrocyte distribution width (RBC) [Ratio] 11.6 % Normal 11.5-15.5 [facility] ([place] Comment on above: Performed By: #### A PTT, GFR, PRO, BMP, TROPHS #### [place] [id number] Hematocrit (Bld) [Volume fraction] 41.3 % Normal 40.0-52.0 [facility] ([place] Comment on above: Performed By: #### A PTT, GFR, PRO, BMP, TROPHS #### [place] [address] Hgb 14.7 G/dL Normal 13.0-17.5 [facility] ([place] Comment on above: Performed By: #### A PTT, GFR, PRO, BMP, TROPHS #### [place] [address] MCH (RBC) [Entitic mass] 33.5 pg High 27.0-33.0 [facility] ([place] Comment on above: Performed By: #### A PTT, GFR, PRO, BMP, TROPHS #### [place] [address] MCHC 35.7 G/dL Normal 32.0-36.0 [facility] ([place] Comment on above: Performed By: #### A PTT, GFR, PRO, BMP, TROPHS #### [place] [address] MCV (RBC) [Entitic vol] 94.0 fL Normal 81.0-100.0 [facility] ([place] Comment on above: Performed By: #### A PTT, GFR, PRO, BMP, TROPHS #### [place] [address] Platelet 370 10 3/mcL Normal 150-450 [facility] ([place] Comment on above: Performed By: #### A PTT, GFR, PRO, BMP, TROPHS #### [place] [address] Platelet mean volume (Bld) [Entitic vol] 8.1 fL Normal 6.4-10.5 [facility] ([place] Comment on above: Performed By: #### A PTT, GFR, PRO, BMP, TROPHS #### [place] [address] RBC 4.40 10 6/mcL Low 4.50-6.00 [facility] ([place] Comment on above: Performed By: #### A PTT, GFR, PRO, BMP, TROPHS #### [place] [id number] [address] [place] [address] WBC 8.5 10 3/mcL Normal 4.5-10.8 [facility] ([place] Comment on above: Performed By: #### A PTT, GFR, PRO, BMP, TROPHS #### [place] [id number] [place] [address] HEAD OR BRAIN W/O CONTRAS Ton 03-27-2022 CT HEAD OR BRAIN W/O CONTRAST ORIGINAL HISTORY: Seizure COMPARISON: 13 days previously TECHNIQUE: Routine non-contrast head CT with sagittal and coronal reconstructions This exam was performed according to our departmental dose optimization program, and includes the following measures where applicable: automated exposure control, adjustment of the mAs and/or kVp according to patient size and/or exam, and an iterative reconstruction algorithm. FINDINGS: The ventricles and sulci are normal in size and configuration. There are no abnormal intra or extra-axial fluid collections. There is moderate irregular decreased attenuation in the cerebral white matter; castaneda-white matter differentiation is maintained. The calvaria and the bones of the base of the skull are intact. IMPRESSION: No significant interval change. Interpreted by: Antoine Yin MD Preliminary Report By: Antoine Yin MD Electronically signed By Antoine Yin MD Dictated Date: 03/27/2022 1:01:32 PM Prelim Date: 03/27/2022 1:03:24 PM Sign Date: 03/27/2022 1:03:24 PM Ordering Provider: KALEN Crow [facility] ([place] LABORATORYOrdered By: SYSTEM SYSTEM on 03-27-2022 Albumin BCP dye [Mass/Vol] 3.4 G/dL Invalid Interpretation Code 3.2 - 4.8 G/dL AH ADM SS Albumin/Globulin [Mass ratio] 1.2 {ratio} Invalid Interpretation Code 0.9 - 1.6 ratio AH ADM SS ALP [Catalytic activity/Vol] 92 U/L Invalid Interpretation Code 38 - 126 U/L AH ADM SS ALT No additional P-5'-P [Catalytic activity/Vol] 26 U/L Invalid Interpretation Code 12 - 55 U/L AH ADM SS Ammonia (P) [Moles/Vol] 63 umol/L Invalid Interpretation Code 11 - 32 mcmol/L AH ADM SS Comment on above: Result Comment: Spec imen slightly hemolyzed. AST [Catalytic activity/Vol] 21 U/L Invalid Interpretation Code 8 - 34 U/L ADM SS Basophils (Bld) [#/Vol] 0.1 103/mcL Invalid Interpretation Code 0.0 - 0.3 10^3/mcL AH Workflow SS Basophils/100 WBC (Bld) 1.2 % Invalid Interpretation Code 0.0 - 2.5 % AH Workflow SS Bilirubin [Mass/Vol] 1.10 mg/dL Invalid Interpretation Code 0.20 - 1.20 mg/dL ADM SS Calcium [Mass/Vol] 9.4 mg/dL Invalid Interpretation Code 8.7 - 10.4 mg/dL ADM SS Chloride [Moles/Vol] 109 mmol/L Invalid Interpretation Code 98 - 110 mEq/L ADM SS CK [Catalytic activity/Vol] 118 U/L Invalid Interpretation Code 7 - 185 U/L ADM SS Comment on above: Result Comment: Spec imen slightly hemolyzed. CO2 [Moles/Vol] 23 mmol/L Invalid Interpretation Code 22 - 32 mEq/L ADM SS Creatinine [Mass/Vol] 0.83 mg/dL Invalid Interpretation Code 0.60 - 1.40 mg/dL ADM SS Electrolyte Balance 12.0 mEq/L Invalid Interpretation Code 4.0 - 15.0 mEq/L ADM SS Eosinophils (Bld) [#/Vol] 0.4 103/mcL Invalid Interpretation Code 0.0 - 0.7 10^3/mcL Workflow SS Eosinophils/100 WBC (Bld) 4.1 % Invalid Interpretation Code 0.0 - 6.0 % Workflow SS Erythrocyte distribution width (RBC) [Ratio] 11.5 % Invalid Interpretation Code 11.5 - 15.5 % Workflow SS GFR/1.73 sq M.predicted among blacks MDRD (S/P/Bld) [Vol rate/Area] ml/min/1.73sqm Invalid Interpretation Code Chemistry S GFR/1.73 sq M.predicted among non-blacks MDRD (S/P/Bld) [Vol rate/Area] ml/min/1.73sqm Invalid Interpretation Code Chemistry S Globulin 2.8 G/dL Invalid Interpretation Code 1.5 - 3.8 G/dL ADM SS Glucose [Mass/Vol] 109 mg/dL Invalid Interpretation Code 82 - 115 mg/dL ADM SS Hematocrit (Bld) [Volume fraction] 38.0 % Invalid Interpretation Code 40.0 - 52.0 % AH Workflow SS Hemoglobin (Bld) [Mass/Vol] 13.4 G/dL Invalid Interpretation Code 13.0 - 17.5 G/dL AH Workflow SS Lymphocytes (Bld) [#/Vol] 2.3 103/mcL Invalid Interpretation Code 0.9 - 4.3 10^3/mcL AH Workflow SS Lymphocytes/100 WBC (Bld) 24.6 % Invalid Interpretation Code 20.0 - 40.0 % AH Workflow SS Magnesium [Mass/Vol] 2.0 mg/dL Invalid Interpretation Code 1.6 - 2.4 mg/dL ADM SS MCH (RBC) [Entitic mass] 33.4 pg Invalid Interpretation Code 27.0 - 33.0 pg AH Workflow SS MCHC 35.4 G/dL Invalid Interpretation Code 32.0 - 36.0 G/dL Workflow SS MCV (RBC) [Entitic vol] 94.3 fL Invalid Interpretation Code 81.0 - 100.0 fL Workflow SS Monocyte distribution width Auto (Bld) [Entitic vol] Not Performed 3 *NA* (03/27/22 10:03 PM) Invalid Interpretation Code 0.00 - 20.00 Hematology S Comment on above: Result Comment: MDW testing performed only on adult ER patients between the ages of 18-89 years. Monocytes (Bld) [#/Vol] 1.4 103/mcL Invalid Interpretation Code 0.1 - 1.4 10^3/mcL Workflow SS Monocytes/100 WBC (Bld) 15.7 % Invalid Interpretation Code 2.0 - 13.0 % AH Workflow SS Neutrophils (Bld) [#/Vol] 5.0 103/mcL Invalid Interpretation Code 2.3 - 8.1 10^3/mcL AH Workflow SS Neutrophils/100 WBC (Bld) 54.4 % Invalid Interpretation Code 50.0 - 75.0 % AH Workflow SS Platelet mean volume (Bld) [Entitic vol] 7.5 fL Invalid Interpretation Code 6.4 - 10.5 fL AH Workflow SS Platelets (Bld) [#/Vol] 339 103/mcL Invalid Interpretation Code 150 - 450 10^3/mcL AH Workflow SS Potassium [Moles/Vol] 3.7 mmol/L Invalid Interpretation Code 3.5 - 5.0 mEq/L ADM SS Comment on above: Result Comment: Spec imen slightly hemolyzed. Protein [Mass/Vol] 6.2 G/dL Invalid Interpretation Code 5.7 - 8.2 G/dL ADM SS RBC (Bld) [#/Vol] 4.03 106/mcL Invalid Interpretation Code 4.50 - 6.00 10^6/mcL Workflow SS Sodium [Moles/Vol] 144 mmol/L Invalid Interpretation Code 136 - 145 mEq/L ADM SS Troponin I.cardiac DL <= 0.01 ng/mL [Mass/Vol] 20.88 ng/L Invalid Interpretation Code 0.00 - 54.00 ng/L ADM SS TSH Qn 4.308 mIU/mL Invalid Interpretation Code 0.550 - 4.780 mIU/mL ADM SS Urea nitrogen [Mass/Vol] 18.0 mg/dL Invalid Interpretation Code 8.0 - 22.0 mg/dL ADM SS Urea nitrogen/Creatinine [Mass ratio] 21.7 ratio Invalid Interpretation Code 10.0 - 22.0 ratio ADM SS WBC 9.2 103/mcL Invalid Interpretation Code 4.5 - 10.8 10^3/mcL Workflow SS LABORATORYOrdered By: Alli Huerta on 03-27-2022 INR Coag (PPP) [Relative time] 1.1 {INR} Invalid Interpretation Code Auto Coag SS PT Coag (PPP) [Time] 13.3 s Invalid Interpretation Code 9.0 - 14.9 seconds Auto Coag SS LABORATORYOrdered By: Toby pressley on 03-27-2022 Lactate [Moles/Vol] 1.6 mmol/L Invalid Interpretation Code 0.2 - 2.0 mmol/L Auto Chem SS Natriuretic peptide.B prohormone N-Terminal [Mass/Vol] 485 pg/mL Invalid Interpretation Code 0 - 900 pg/mL Auto Chem SS LABORATORYOrdered By: Khalida Bass on 03-27-2022 Appearance (U) Clear (03/27/22 2:38 PM) Invalid Interpretation Code Clear Auto Urine SS Bilirubin Ql (U) Negative (03/27/22 2:38 PM) Invalid Interpretation Code Neg-Trace Auto Urine SS Color (U) Yellow (03/27/22 2:38 PM) Invalid Interpretation Code AH Auto Urine SS Glucose Test strip (U) [Mass/Vol] Negative Invalid Interpretation Code Negativemg/d L AH Auto Urine SS Hemoglobin Auto test strip (U) [Mass/Vol] Negative (03/27/22 2:38 PM) Invalid Interpretation Code Neg-Trace Auto Urine SS Ketones Ql (U) Trace mg/dL Invalid Interpretation Code Neg-Tracemg/ dL AH Auto Urine SS UA Leuk Est Negative (03/27/22 2:38 PM) Invalid Interpretation Code Negative Auto Urine SS UA Nitrite Negative (03/27/22 2:38 PM) Invalid Interpretation Code Negative Auto Urine SS UA pH 6.5 (03/27/22 2:38 PM) Invalid Interpretation Code 5.0 - 8.0 AH Auto Urine SS UA Protein 30 mg/dL Invalid Interpretation Code Negativemg/d L Auto Urine SS UA Spec Grav 1.020 (03/27/22 2:38 PM) Invalid Interpretation Code 1.006-1.029 Auto Urine SS UA Specimen Type Catheter (03/27/22 2:38 PM) Invalid Interpretation Code Auto Urine SS UA Urobilinogen 1.0 E.U./dL Invalid Interpretation Code 0.2-1.0E.U./ dL Auto Urine SS UAon 03-27-2022 Color (U) Yellow Normal [facility] ([place]) Comment on above: Performed By: #### A PTT, GFR, PRO, BMP, TROPHS #### [address] [address] Glucose (U) [Mass/Vol] Negative Normal Negative [facility] ([place]) Comment on above: Performed By: #### A PTT, GFR, PRO, BMP, TROPHS #### [address] [address] Ketones Ql (U) Trace Normal Neg-Trace [facility] ([place] Comment on above: Performed By: #### A PTT, GFR, PRO, BMP, TROPHS #### [address] [address] UA Appear Clear Normal Clear [facility] ([place] Comment on above: Performed By: #### A PTT, GFR, PRO, BMP, TROPHS #### [address] [address] UA Blood Negative Normal Neg-Trace [facility] ([place] Comment on above: Performed By: #### A PTT, GFR, PRO, BMP, TROPHS #### [address] [address] UA Leuk Est Negative Normal Negative [facility] ([place] Comment on above: Performed By: #### A PTT, GFR, PRO, BMP, TROPHS #### [address] [address] UA Nitrite Negative Normal Negative [facility] ([place] Comment on above: Performed By: #### A PTT, GFR, PRO, BMP, TROPHS #### [address] [address] UA pH 6.5 Normal 5.0 - 8.0 [facility] ([place] Comment on above: Performed By: #### A PTT, GFR, PRO, BMP, TROPHS #### [address] [address] UA Protein 30 mg/dL Normal Negative [facility] ([place] Comment on above: Performed By: #### A PTT, GFR, PRO, BMP, TROPHS #### [address] [address] UA Spec Grav 1.020 Normal 1.006-1.029 [facility] ([place] Comment on above: Performed By: #### A PTT, GFR, PRO, BMP, TROPHS #### [address] [address] UA Specimen Type Catheter Normal [facility] ([place] Comment on above: Performed By: #### A PTT, GFR, PRO, BMP, TROPHS #### [address] [address] UA Urobilinogen 1.0 E.U./dL Normal 0.2-1.0 [facility] ([place] Comment on above: Performed By: #### A PTT, GFR, PRO, BMP, TROPHS #### [address] [address] Urobilinogen (U) [Mass/Vol] Negative Normal Neg-Trace [facility] ([place] Comment on above: Performed By: #### A PTT, GFR, PRO, BMP, TROPHS #### [address] [address] XR CHEST 1 VIEWon 03-27-2022 XR CHEST 1 VIEW ORIGINAL EXAMINATION: ONE XRAY VIEW OF THE CHEST03/27/2022 12:54 pm COMPARISON: March 10, 2022 HISTORY: Reason for Exam: chest pain FINDINGS: A single portable AP view of the chest was obtained. The cardiomediastinal silhouette is exaggerated. No focal consolidation, pleural effusion or pneumothorax is seen. Healed left-sided rib fractures are identified. IMPRESSION: No acute cardiopulmonary abnormality is seen. Interpreted by: Helena Díaz MD Preliminary Report By: Helena Díaz MD Electronically signed By Helena Díaz MD Dictated Date: 03/27/2022 1:17:45 PM Prelim Date: 03/27/2022 1:19:45 PM Sign Date: 03/27/2022 1:19:45 PM Ordering Provider: KALEN Crow [facility] ([place]) .Auto Diffon 03-16-2022 Basophil, Absolute 0.1 10 3/mcL Normal 0.0-0.3 [facility] ([place]) Comment on above: Performed By: #### G FR, BMP #### [address] [address] Basophils/100 WBC (Bld) 0.9 % Normal 0.0-2.5 [facility] ([place] Comment on above: Performed By: #### G FR, BMP #### [address] [address] Eosinophil, Absolute 0.4 10 3/mcL Normal 0.0-0.7 [facility] ([place]) Comment on above: Performed By: #### G FR, BMP #### [address] [address] Eosinophils/100 WBC (Bld) 4.4 % Normal 0.0-6.0 [facility] ([place] Comment on above: Performed By: #### G FR, BMP #### [address] [address] Lymphocyte, Absolute 2.1 10 3/mcL Normal 0.9-4.3 [facility] ([place] Comment on above: Performed By: #### G FR, BMP #### [address] [address] Lymphocytes/100 WBC (Bld) 24.4 % Normal 20.0-40.0 [facility] ([place] Comment on above: Performed By: #### G FR, BMP #### [address] [address] Monocyte, Absolute 0.9 10 3/mcL Normal 0.1-1.4 [facility] ([place]) Comment on above: Performed By: #### G FR, BMP #### [address] [address] Monocytes/100 WBC (Bld) 10.9 % Normal 2.0-13.0 [facility] ([place] Comment on above: Performed By: #### G FR, BMP #### [address] [address] Neutrophils/100 WBC (Bld) 59.4 % Normal 50.0-75.0 [facility] ([place] Comment on above: Performed By: #### G FR, BMP #### [address] [address] .GFRon 03-16-2022 GFR Non- >60 Normal [facility] ([place] Comment on above: Result Comment: GFR Population mean for , Non- Americans Ages 20-29 = 116 mL/min/1.73 sq.m. Ages 30-39 = 107 mL/min/1.73 sq.m. Ages 40-49 = 99 mL/min/1.73 sq.m. Ages 50-59 = 93 mL/min/1.73 sq.m. Ages 60-69 = 85 mL/min/1.73 sq.m. Ages 70+ = 75 mL/min/1.73 sq.m. Chronic Kidney Disease: Less than 60 mL/min/1.73 square meters End Stage Renal Disease: Less than 15 mL/min/1.73 square meters Performed By: #### G FR, BMP #### [address] [address] GFR >60 Normal [facility] ([place] Comment on above: Result Comment: GFR Population mean for , Non- Americans Ages 20-29 = 116 mL/min/1.73 sq.m. Ages 30-39 = 107 mL/min/1.73 sq.m. Ages 40-49 = 99 mL/min/1.73 sq.m. Ages 50-59 = 93 mL/min/1.73 sq.m. Ages 60-69 = 85 mL/min/1.73 sq.m. Ages 70+ = 75 mL/min/1.73 sq.m. Chronic Kidney Disease: Less than 60 mL/min/1.73 square meters End Stage Renal Disease: Less than 15 mL/min/1.73 square meters Performed By: #### Roney FRIEND, BMP #### [address] [address] .MDWon 03-16-2022 Monocyte Distribution Width Not performed Normal 0.00-20.00 [facility] ([place] Comment on above: Result Comment: MDW testing performed only on adult ER patients between the ages of 18-89 years. Performed By: #### Roney FRIEND, BMP #### [address] [address] .NEUABSon 03-16-2022 Neutrophil, Absolute 5.1 10 3/mcL Normal 2.3-8.1 [facility] ([place]) Comment on above: Performed By: #### Roney FRIEND, BMP #### [place] [address] BMPon 03-16-2022 BUN/Creatinine Ratio 18.2 ratio Normal 10.0-22.0 [facility] ([place] Comment on above: Performed By: #### Roney FRIEND, BMP #### [address] [address] Calcium [Mass/Vol] 9.3 mg/dL Normal 8.7-10.4 [facility] ([place] Comment on above: Performed By: #### Roney FRIEND, BMP #### [address] [address] Chloride [Moles/Vol] 108 mmol/L Normal 98-110 [facility] ([place] Comment on above: Performed By: #### G , BMP #### [address] [address] CO2 [Moles/Vol] 23 mmol/L Normal 22-32 [facility] ([place] Comment on above: Performed By: #### Roney FRIEND, BMP #### [address] [address] Creatinine [Mass/Vol] 0.77 mg/dL Normal 0.60-1.40 [facility] ([place] Comment on above: Performed By: #### Roney FRIEND, BMP #### [address] [address] Electrolyte Balance 8.0 mEq/L Normal 4.0-15.0 [facility] ([place]) Comment on above: Performed By: #### Roney FRIEND, BMP #### [address] [address] Glucose [Mass/Vol] 90 mg/dL Normal 82-115 [facility] ([place] Comment on above: Performed By: #### Roney FRIEND, BMP #### [address] [address] Potassium [Moles/Vol] 4.3 mmol/L Normal 3.5-5.0 [facility] ([place] Comment on above: Result Comment: Spec imen slightly hemolyzed. Performed By: #### Roney FRIEND, BMP #### [address] [address] Sodium [Moles/Vol] 139 mmol/L Normal 136-145 [facility] ([place] Comment on above: Performed By: #### Roney FRIEND, BMP #### [address] [address] Urea nitrogen [Mass/Vol] 14.0 mg/dL Normal 8.0-22.0 [facility] ([place] Comment on above: Performed By: #### Roney FRIEND, BMP #### [address] [address] CBCon 03-16-2022 Erythrocyte distribution width (RBC) [Ratio] 11.7 % Normal 11.5-15.5 [facility] ([place] Comment on above: Performed By: #### Roney FRIEND, BMP #### [place] [address] Hematocrit (Bld) [Volume fraction] 42.9 % Normal 40.0-52.0 [facility] ([place] Comment on above: Performed By: #### Roney FR, BMP #### [place] [address] Hgb 15.0 G/dL Normal 13.0-17.5 [facility] ([place] Comment on above: Performed By: #### Roney FRIEND, BMP #### [place] [address] MCH (RBC) [Entitic mass] 33.6 pg High 27.0-33.0 [facility] ([place] Comment on above: Performed By: #### Roney FRIEND, BMP #### [place] [address] MCHC 35.0 G/dL Normal 32.0-36.0 [facility] ([place] Comment on above: Performed By: #### Roney FRIEND, BMP #### [place] [address] MCV (RBC) [Entitic vol] 96.3 fL Normal 81.0-100.0 [facility] ([place] Comment on above: Performed By: #### Roney FRIEND, BMP #### [place] [address] Platelet 273 10 3/mcL Normal 150-450 [facility] ([place] Comment on above: Performed By: #### Roney FRIEND, BMP #### [place] [address] Platelet mean volume (Bld) [Entitic vol] 8.3 fL Normal 6.4-10.5 [facility] ([place] Comment on above: Performed By: #### Roney FR, BMP #### [place] [address] RBC 4.46 10 6/mcL Low 4.50-6.00 [facility] ([place] Comment on above: Performed By: #### Roney FR, BMP #### [address] [address] WBC 8.6 10 3/mcL Normal 4.5-10.8 [facility] ([place] Comment on above: Performed By: #### G , ANDREW #### [address] [address] LABORATORYOrdered By: SYSTEM SYSTEM on 03-16-2022 Basophils (Bld) [#/Vol] 0.1 103/mcL Invalid Interpretation Code 0.0 - 0.3 10^3/mcL Workflow SS Basophils/100 WBC (Bld) 0.9 % Invalid Interpretation Code 0.0 - 2.5 % Workflow SS Calcium [Mass/Vol] 9.3 mg/dL Invalid Interpretation Code 8.7 - 10.4 mg/dL ADM SS Chloride [Moles/Vol] 108 mmol/L Invalid Interpretation Code 98 - 110 mEq/L ADM SS CO2 [Moles/Vol] 23 mmol/L Invalid Interpretation Code 22 - 32 mEq/L ADM SS Creatinine [Mass/Vol] 0.77 mg/dL Invalid Interpretation Code 0.60 - 1.40 mg/dL ADM SS Electrolyte Balance 8.0 mEq/L Invalid Interpretation Code 4.0 - 15.0 mEq/L ADM SS Eosinophils (Bld) [#/Vol] 0.4 103/mcL Invalid Interpretation Code 0.0 - 0.7 10^3/mcL AH Workflow SS Eosinophils/100 WBC (Bld) 4.4 % Invalid Interpretation Code 0.0 - 6.0 % AH Workflow SS Erythrocyte distribution width (RBC) [Ratio] 11.7 % Invalid Interpretation Code 11.5 - 15.5 % AH Workflow SS GFR/1.73 sq M.predicted among blacks MDRD (S/P/Bld) [Vol rate/Area] ml/min/1.73sqm Invalid Interpretation Code Chemistry S GFR/1.73 sq M.predicted among non-blacks MDRD (S/P/Bld) [Vol rate/Area] ml/min/1.73sqm Invalid Interpretation Code Chemistry S Glucose [Mass/Vol] 90 mg/dL Invalid Interpretation Code 82 - 115 mg/dL ADM SS Hematocrit (Bld) [Volume fraction] 42.9 % Invalid Interpretation Code 40.0 - 52.0 % Workflow SS Hemoglobin (Bld) [Mass/Vol] 15.0 G/dL Invalid Interpretation Code 13.0 - 17.5 G/dL AH Workflow SS Lymphocytes (Bld) [#/Vol] 2.1 103/mcL Invalid Interpretation Code 0.9 - 4.3 10^3/mcL AH Workflow SS Lymphocytes/100 WBC (Bld) 24.4 % Invalid Interpretation Code 20.0 - 40.0 % AH Workflow SS MCH (RBC) [Entitic mass] 33.6 pg Invalid Interpretation Code 27.0 - 33.0 pg AH Workflow SS MCHC 35.0 G/dL Invalid Interpretation Code 32.0 - 36.0 G/dL AH Workflow SS MCV (RBC) [Entitic vol] 96.3 fL Invalid Interpretation Code 81.0 - 100.0 fL Workflow SS Monocyte distribution width Auto (Bld) [Entitic vol] Not Performed 1 *NA* (03/16/22 6:41 AM) Invalid Interpretation Code 0.00 - 20.00 Hematology S Comment on above: Result Comment: MDW testing performed only on adult ER patients between the ages of 18-89 years. Monocytes (Bld) [#/Vol] 0.9 103/mcL Invalid Interpretation Code 0.1 - 1.4 10^3/mcL Workflow SS Monocytes/100 WBC (Bld) 10.9 % Invalid Interpretation Code 2.0 - 13.0 % Workflow SS Neutrophils (Bld) [#/Vol] 5.1 103/mcL Invalid Interpretation Code 2.3 - 8.1 10^3/mcL Workflow SS Neutrophils/100 WBC (Bld) 59.4 % Invalid Interpretation Code 50.0 - 75.0 % Workflow SS Platelet mean volume (Bld) [Entitic vol] 8.3 fL Invalid Interpretation Code 6.4 - 10.5 fL Workflow SS Platelets (Bld) [#/Vol] 273 103/mcL Invalid Interpretation Code 150 - 450 10^3/mcL Workflow SS Potassium [Moles/Vol] 4.3 mmol/L Invalid Interpretation Code 3.5 - 5.0 mEq/L ADM SS Comment on above: Result Comment: Spec imen slightly hemolyzed. RBC (Bld) [#/Vol] 4.46 106/mcL Invalid Interpretation Code 4.50 - 6.00 10^6/mcL Workflow SS Sodium [Moles/Vol] 139 mmol/L Invalid Interpretation Code 136 - 145 mEq/L ADM SS Urea nitrogen [Mass/Vol] 14.0 mg/dL Invalid Interpretation Code 8.0 - 22.0 mg/dL ADM SS Urea nitrogen/Creatinine [Mass ratio] 18.2 ratio Invalid Interpretation Code 10.0 - 22.0 ratio ADM SS WBC 8.6 103/mcL Invalid Interpretation Code 4.5 - 10.8 10^3/mcL Workflow SS .Auto Diffon 03-15-2022 Basophil, Absolute 0.1 10 3/mcL Normal 0.0-0.3 [facility] ([place] Comment on above: Performed By: #### A PTT, GFR, PRO, BMP, TROPHS #### [address] [address] Basophils/100 WBC (Bld) 0.6 % Normal 0.0-2.5 [facility] ([place] Comment on above: Performed By: #### A PTT, GFR, PRO, BMP, TROPHS #### [address] [address] Eosinophil, Absolute 0.3 10 3/mcL Normal 0.0-0.7 [facility] ([place] Comment on above: Performed By: #### A PTT, GFR, PRO, BMP, TROPHS #### [address] [address] Eosinophils/100 WBC (Bld) 2.5 % Normal 0.0-6.0 [facility] ([place] Comment on above: Performed By: #### A PTT, GFR, PRO, BMP, TROPHS #### [address] [address] Lymphocyte, Absolute 2.0 10 3/mcL Normal 0.9-4.3 [facility] ([place] Comment on above: Performed By: #### A PTT, GFR, PRO, BMP, TROPHS #### [address] [address] Lymphocytes/100 WBC (Bld) 17.9 % Low 20.0-40.0 [facility] ([place] Comment on above: Performed By: #### A PTT, GFR, PRO, BMP, TROPHS #### [address] [address] Monocyte, Absolute 1.0 10 3/mcL Normal 0.1-1.4 [facility] ([place] Comment on above: Performed By: #### A PTT, GFR, PRO, BMP, TROPHS #### [address] [address] Monocytes/100 WBC (Bld) 9.2 % Normal 2.0-13.0 [facility] ([place] Comment on above: Performed By: #### A PTT, GFR, PRO, BMP, TROPHS #### [address] [address] Neutrophils/100 WBC (Bld) 69.8 % Normal 50.0-75.0 [facility] ([place] Comment on above: Performed By: #### A PTT, GFR, PRO, BMP, TROPHS #### [address] [address] .GFRon 03-15-2022 GFR Non- >60 Normal [facility] ([place]) Comment on above: Result Comment: GFR Population mean for , Non- Americans Ages 20-29 = 116 mL/min/1.73 sq.m. Ages 30-39 = 107 mL/min/1.73 sq.m. Ages 40-49 = 99 mL/min/1.73 sq.m. Ages 50-59 = 93 mL/min/1.73 sq.m. Ages 60-69 = 85 mL/min/1.73 sq.m. Ages 70+ = 75 mL/min/1.73 sq.m. Chronic Kidney Disease: Less than 60 mL/min/1.73 square meters End Stage Renal Disease: Less than 15 mL/min/1.73 square meters Performed By: #### G FR, BMP #### [address] [address] GFR >60 Normal [facility] ([place]) Comment on above: Result Comment: GFR Population mean for , Non- Americans Ages 20-29 = 116 mL/min/1.73 sq.m. Ages 30-39 = 107 mL/min/1.73 sq.m. Ages 40-49 = 99 mL/min/1.73 sq.m. Ages 50-59 = 93 mL/min/1.73 sq.m. Ages 60-69 = 85 mL/min/1.73 sq.m. Ages 70+ = 75 mL/min/1.73 sq.m. Chronic Kidney Disease: Less than 60 mL/min/1.73 square meters End Stage Renal Disease: Less than 15 mL/min/1.73 square meters Performed By: #### G FR, BMP #### [place] [address] .MDWon 03-15-2022 Monocyte Distribution Width Not performed Normal 0.00-20.00 [facility] ([place] Comment on above: Result Comment: MDW testing performed only on adult ER patients between the ages of 18-89 years. Performed By: #### A PTT, GFR, PRO, BMP, TROPHS #### [place] [address] .NEUABSon 03-15-2022 Neutrophil, Absolute 7.6 10 3/mcL Normal 2.3-8.1 [facility] ([place] Comment on above: Performed By: #### A PTT, GFR, PRO, BMP, TROPHS #### [place] [address] CBCon 03-15-2022 Erythrocyte distribution width (RBC) [Ratio] 11.9 % Normal 11.5-15.5 [facility] ([place] Comment on above: Performed By: #### A PTT, GFR, PRO, BMP, TROPHS #### [place] [address] Hematocrit (Bld) [Volume fraction] 44.8 % Normal 40.0-52.0 [facility] ([place] Comment on above: Performed By: #### A PTT, GFR, PRO, BMP, TROPHS #### [place] [address] Hgb 15.7 G/dL Normal 13.0-17.5 [facility] ([place] Comment on above: Performed By: #### A PTT, GFR, PRO, BMP, TROPHS #### [place] [address] MCH (RBC) [Entitic mass] 33.4 pg High 27.0-33.0 [facility] ([place] Comment on above: Performed By: #### A PTT, GFR, PRO, BMP, TROPHS #### [place] [address] MCHC 35.1 G/dL Normal 32.0-36.0 [facility] ([place] Comment on above: Performed By: #### A PTT, GFR, PRO, BMP, TROPHS #### [place] [address] MCV (RBC) [Entitic vol] 95.2 fL Normal 81.0-100.0 [facility] ([place] Comment on above: Performed By: #### A PTT, GFR, PRO, BMP, TROPHS #### [place] [address] Platelet 279 10 3/mcL Normal 150-450 [facility] ([place] Comment on above: Performed By: #### A PTT, GFR, PRO, BMP, TROPHS #### [place] [address] Platelet mean volume (Bld) [Entitic vol] 8.1 fL Normal 6.4-10.5 [facility] ([place] Comment on above: Performed By: #### A PTT, GFR, PRO, BMP, TROPHS #### [place] [id number] RBC 4.71 10 6/mcL Normal 4.50-6.00 [facility] ([place] Comment on above: Performed By: #### A PTT, GFR, PRO, BMP, TROPHS #### [place] [id number] WBC 10.9 10 3/mcL High 4.5-10.8 [facility] ([place] Comment on above: Performed By: #### A PTT, GFR, PRO, BMP, TROPHS #### [place] [address] CMPon 03-15-2022 Albumin Level 3.7 G/dL Normal 3.2-4.8 [facility] ([place] Comment on above: Performed By: #### A PTT, GFR, PRO, BMP, TROPHS #### [address] [address] Albumin/Globulin [Mass ratio] 1.3 {ratio} Normal 0.9-1.6 [facility] ([place] Comment on above: Performed By: #### A PTT, GFR, PRO, BMP, TROPHS #### [place] [id number] ALP [Catalytic activity/Vol] 90 U/L Normal 38-126 [facility] ([place] Comment on above: Performed By: #### A PTT, GFR, PRO, BMP, TROPHS #### [place] [id number] ALT [Catalytic activity/Vol] 22 U/L Normal 12-55 [facility] ([place] Comment on above: Performed By: #### A PTT, GFR, PRO, BMP, TROPHS #### [place] [id number] AST [Catalytic activity/Vol] 19 U/L Normal 8-34 [facility] ([place] Comment on above: Performed By: #### A PTT, GFR, PRO, BMP, TROPHS #### [place] [id number] Bili Total 1.60 mg/dL High 0.20-1.20 [facility] ([place]) Comment on above: Result Comment: Use of this assay is not recommended for patients undergoing treatment with eltrombopag due to the potential for falsely elevated results. Performed By: #### A PTT, GFR, PRO, BMP, TROPHS #### [place] [id number] BUN/Creatinine Ratio 18.9 ratio Normal 10.0-22.0 [facility] ([place]) Comment on above: Performed By: #### A PTT, GFR, PRO, BMP, TROPHS #### [place] [id number] Calcium [Mass/Vol] 9.7 mg/dL Normal 8.7-10.4 [facility] ([place]) Comment on above: Performed By: #### A PTT, GFR, PRO, BMP, TROPHS #### [address] [address] Chloride [Moles/Vol] 108 mmol/L Normal 98-110 [facility] ([place]) Comment on above: Performed By: #### A PTT, GFR, PRO, BMP, TROPHS #### [address] [address] CO2 [Moles/Vol] 23 mmol/L Normal 22-32 [facility] ([place]) Comment on above: Performed By: #### A PTT, GFR, PRO, BMP, TROPHS #### [address] [address] Creatinine [Mass/Vol] 0.74 mg/dL Normal 0.60-1.40 [facility] ([place]) Comment on above: Performed By: #### A PTT, GFR, PRO, BMP, TROPHS #### [address] [address] Electrolyte Balance 9.0 mEq/L Normal 4.0-15.0 [facility] ([place]) Comment on above: Performed By: #### A PTT, GFR, PRO, BMP, TROPHS #### [address] [address] Globulin 2.9 G/dL Normal 1.5-3.8 [facility] ([place]) Comment on above: Performed By: #### A PTT, GFR, PRO, BMP, TROPHS #### [address] [address] Glucose [Mass/Vol] 100 mg/dL Normal 82-115 [facility] ([place]) Comment on above: Performed By: #### A PTT, GFR, PRO, BMP, TROPHS #### [address] [address] Potassium [Moles/Vol] 4.0 mmol/L Normal 3.5-5.0 [facility] ([place]) Comment on above: Performed By: #### A PTT, GFR, PRO, BMP, TROPHS #### [address] [address] Sodium [Moles/Vol] 140 mmol/L Normal 136-145 [facility] ([place]) Comment on above: Performed By: #### A PTT, GFR, PRO, BMP, TROPHS #### [address] [address] Total Protein 6.6 G/dL Normal 5.7-8.2 [facility] ([place]) Comment on above: Result Comment: No te - New Reference Range in effect 20 Performed By: #### A PTT, GFR, PRO, BMP, TROPHS #### [address] [address] Urea nitrogen [Mass/Vol] 14.0 mg/dL Normal 8.0-22.0 [facility] ([place]) Comment on above: Performed By: #### A PTT, GFR, PRO, BMP, TROPHS #### [address] [address] LABORATORYOrdered By: SYSTEM SYSTEM on 03-15-2022 Albumin BCP dye [Mass/Vol] 3.7 G/dL Invalid Interpretation Code 3.2 - 4.8 G/dL ADM SS Albumin/Globulin [Mass ratio] 1.3 {ratio} Invalid Interpretation Code 0.9 - 1.6 ratio ADM SS ALP [Catalytic activity/Vol] 90 U/L Invalid Interpretation Code 38 - 126 U/L ADM SS ALT No additional P-5'-P [Catalytic activity/Vol] 22 U/L Invalid Interpretation Code 12 - 55 U/L ADM SS AST [Catalytic activity/Vol] 19 U/L Invalid Interpretation Code 8 - 34 U/L ADM SS Basophils (Bld) [#/Vol] 0.1 103/mcL Invalid Interpretation Code 0.0 - 0.3 10^3/mcL Workflow SS Basophils/100 WBC (Bld) 0.6 % Invalid Interpretation Code 0.0 - 2.5 % Workflow SS Bilirubin [Mass/Vol] 1.60 mg/dL Invalid Interpretation Code 0.20 - 1.20 mg/dL ADM SS Calcium [Mass/Vol] 9.7 mg/dL Invalid Interpretation Code 8.7 - 10.4 mg/dL ADM SS Chloride [Moles/Vol] 108 mmol/L Invalid Interpretation Code 98 - 110 mEq/L ADM SS CO2 [Moles/Vol] 23 mmol/L Invalid Interpretation Code 22 - 32 mEq/L ADM SS Creatinine [Mass/Vol] 0.74 mg/dL Invalid Interpretation Code 0.60 - 1.40 mg/dL ADM SS Electrolyte Balance 9.0 mEq/L Invalid Interpretation Code 4.0 - 15.0 mEq/L ADM SS Eosinophils (Bld) [#/Vol] 0.3 103/mcL Invalid Interpretation Code 0.0 - 0.7 10^3/mcL Workflow SS Eosinophils/100 WBC (Bld) 2.5 % Invalid Interpretation Code 0.0 - 6.0 % Workflow SS Erythrocyte distribution width (RBC) [Ratio] 11.9 % Invalid Interpretation Code 11.5 - 15.5 % Workflow SS GFR/1.73 sq M.predicted among blacks MDRD (S/P/Bld) [Vol rate/Area] ml/min/1.73sqm Invalid Interpretation Code Chemistry S GFR/1.73 sq M.predicted among non-blacks MDRD (S/P/Bld) [Vol rate/Area] ml/min/1.73sqm Invalid Interpretation Code Chemistry S Globulin 2.9 G/dL Invalid Interpretation Code 1.5 - 3.8 G/dL ADM SS Glucose [Mass/Vol] 100 mg/dL Invalid Interpretation Code 82 - 115 mg/dL ADM SS Hematocrit (Bld) [Volume fraction] 44.8 % Invalid Interpretation Code 40.0 - 52.0 % Workflow SS Hemoglobin (Bld) [Mass/Vol] 15.7 G/dL Invalid Interpretation Code 13.0 - 17.5 G/dL Workflow SS Lymphocytes (Bld) [#/Vol] 2.0 103/mcL Invalid Interpretation Code 0.9 - 4.3 10^3/mcL Workflow SS Lymphocytes/100 WBC (Bld) 17.9 % Invalid Interpretation Code 20.0 - 40.0 % Workflow SS Magnesium [Mass/Vol] 1.9 mg/dL Invalid Interpretation Code 1.6 - 2.4 mg/dL ADM SS MCH (RBC) [Entitic mass] 33.4 pg Invalid Interpretation Code 27.0 - 33.0 pg Workflow SS MCHC 35.1 G/dL Invalid Interpretation Code 32.0 - 36.0 G/dL Workflow SS MCV (RBC) [Entitic vol] 95.2 fL Invalid Interpretation Code 81.0 - 100.0 fL Workflow SS Monocyte distribution width Auto (Bld) [Entitic vol] Not Performed 1 *NA* (03/15/22 7:46 AM) Invalid Interpretation Code 0.00 - 20.00 Hematology S Comment on above: Result Comment: MDW testing performed only on adult ER patients between the ages of 18-89 years. Monocytes (Bld) [#/Vol] 1.0 103/mcL Invalid Interpretation Code 0.1 - 1.4 10^3/mcL Workflow SS Monocytes/100 WBC (Bld) 9.2 % Invalid Interpretation Code 2.0 - 13.0 % Workflow SS Neutrophils (Bld) [#/Vol] 7.6 103/mcL Invalid Interpretation Code 2.3 - 8.1 10^3/mcL Workflow SS Neutrophils/100 WBC (Bld) 69.8 % Invalid Interpretation Code 50.0 - 75.0 % Workflow SS Platelet mean volume (Bld) [Entitic vol] 8.1 fL Invalid Interpretation Code 6.4 - 10.5 fL Workflow SS Platelets (Bld) [#/Vol] 279 103/mcL Invalid Interpretation Code 150 - 450 10^3/mcL Workflow SS Potassium [Moles/Vol] 4.0 mmol/L Invalid Interpretation Code 3.5 - 5.0 mEq/L ADM SS Protein [Mass/Vol] 6.6 G/dL Invalid Interpretation Code 5.7 - 8.2 G/dL ADM SS RBC (Bld) [#/Vol] 4.71 106/mcL Invalid Interpretation Code 4.50 - 6.00 10^6/mcL Workflow SS Sodium [Moles/Vol] 140 mmol/L Invalid Interpretation Code 136 - 145 mEq/L ADM SS Urea nitrogen [Mass/Vol] 14.0 mg/dL Invalid Interpretation Code 8.0 - 22.0 mg/dL ADM SS Urea nitrogen/Creatinine [Mass ratio] 18.9 ratio Invalid Interpretation Code 10.0 - 22.0 ratio ADM SS WBC 10.9 103/mcL Invalid Interpretation Code 4.5 - 10.8 10^3/mcL Workflow SS MGon 03-15-2022 Magnesium [Mass/Vol] 1.9 mg/dL Normal 1.6-2.4 [facility] ([place]) Comment on above: Performed By: #### A PTT, GFR, PRO, BMP, TROPHS #### [address] [address] .Auto Diffon 03-14-2022 Basophil, Absolute 0.1 10 3/mcL Normal 0.0-0.3 [facility] ([place]) Comment on above: Performed By: #### A PTT, GFR, PRO, BMP, TROPHS #### [address] [address] Basophils/100 WBC (Bld) 0.8 % Normal 0.0-2.5 [facility] ([place]) Comment on above: Performed By: #### A PTT, GFR, PRO, BMP, TROPHS #### [address] [address] Eosinophil, Absolute 0.4 10 3/mcL Normal 0.0-0.7 [facility] ([place]) Comment on above: Performed By: #### A PTT, GFR, PRO, BMP, TROPHS #### [address] [address] Eosinophils/100 WBC (Bld) 4.1 % Normal 0.0-6.0 [facility] ([place]) Comment on above: Performed By: #### A PTT, GFR, PRO, BMP, TROPHS #### [address] [address] Lymphocyte, Absolute 2.1 10 3/mcL Normal 0.9-4.3 [facility] ([place]) Comment on above: Performed By: #### A PTT, GFR, PRO, BMP, TROPHS #### [address] [address] Lymphocytes/100 WBC (Bld) 22.2 % Normal 20.0-40.0 [facility] ([place]) Comment on above: Performed By: #### A PTT, GFR, PRO, BMP, TROPHS #### [address] [address] Monocyte, Absolute 0.9 10 3/mcL Normal 0.1-1.4 [facility] ([place]) Comment on above: Performed By: #### A PTT, GFR, PRO, BMP, TROPHS #### [address] [address] Monocytes/100 WBC (Bld) 9.5 % Normal 2.0-13.0 [facility] ([place]) Comment on above: Performed By: #### A PTT, GFR, PRO, BMP, TROPHS #### [address] [address] Neutrophils/100 WBC (Bld) 63.4 % Normal 50.0-75.0 [facility] ([place]) Comment on above: Performed By: #### A PTT, GFR, PRO, BMP, TROPHS #### [address] [address] .GFRon 03-14-2022 GFR >60 Normal [facility] ([place]) Comment on above: Result Comment: GFR Population mean for , Non- Americans Ages 20-29 = 116 mL/min/1.73 sq.m. Ages 30-39 = 107 mL/min/1.73 sq.m. Ages 40-49 = 99 mL/min/1.73 sq.m. Ages 50-59 = 93 mL/min/1.73 sq.m. Ages 60-69 = 85 mL/min/1.73 sq.m. Ages 70+ = 75 mL/min/1.73 sq.m. Chronic Kidney Disease: Less than 60 mL/min/1.73 square meters End Stage Renal Disease: Less than 15 mL/min/1.73 square meters Performed By: #### A PTT, GFR, PRO, BMP, TROPHS #### [address] [address] GFR Non- >60 Normal [facility] ([place]) Comment on above: Result Comment: GFR Population mean for , Non- Americans Ages 20-29 = 116 mL/min/1.73 sq.m. Ages 30-39 = 107 mL/min/1.73 sq.m. Ages 40-49 = 99 mL/min/1.73 sq.m. Ages 50-59 = 93 mL/min/1.73 sq.m. Ages 60-69 = 85 mL/min/1.73 sq.m. Ages 70+ = 75 mL/min/1.73 sq.m. Chronic Kidney Disease: Less than 60 mL/min/1.73 square meters End Stage Renal Disease: Less than 15 mL/min/1.73 square meters Performed By: #### A PTT, GFR, PRO, BMP, TROPHS #### [address] [address] .MDWon 03-14-2022 Monocyte Distribution Width Not performed Normal 0.00-20.00 [facility] ([place]) Comment on above: Result Comment: MDW testing performed only on adult ER patients between the ages of 18-89 years. Performed By: #### A PTT, GFR, PRO, BMP, TROPHS #### [address] [address] .NEUABSon 03-14-2022 Neutrophil, Absolute 5.9 10 3/mcL Normal 2.3-8.1 [facility] ([place]) Comment on above: Performed By: #### A PTT, GFR, PRO, BMP, TROPHS #### [address] [address] BMPon 03-14-2022 BUN/Creatinine Ratio 22.4 ratio High 10.0-22.0 [facility] ([place]) Comment on above: Performed By: #### A PTT, GFR, PRO, BMP, TROPHS #### [address] [address] Calcium [Mass/Vol] 10.1 mg/dL Normal 8.7-10.4 [facility] ([place]) Comment on above: Performed By: #### A PTT, GFR, PRO, BMP, TROPHS #### [address] [address] Chloride [Moles/Vol] 110 mmol/L Normal 98-110 [facility] ([place]) Comment on above: Performed By: #### A PTT, GFR, PRO, BMP, TROPHS #### [address] [address] CO2 [Moles/Vol] 22 mmol/L Normal 22-32 [facility] ([place]) Comment on above: Performed By: #### A PTT, GFR, PRO, BMP, TROPHS #### [address] [address] Creatinine [Mass/Vol] 0.76 mg/dL Normal 0.60-1.40 [facility] ([place]) Comment on above: Performed By: #### A PTT, GFR, PRO, BMP, TROPHS #### [address] [address] Electrolyte Balance 11.0 mEq/L Normal 4.0-15.0 [facility] ([place]) Comment on above: Performed By: #### A PTT, GFR, PRO, BMP, TROPHS #### [address] [address] Glucose [Mass/Vol] 101 mg/dL Normal 82-115 [facility] ([place]) Comment on above: Performed By: #### A PTT, GFR, PRO, BMP, TROPHS #### [place] [address] Potassium [Moles/Vol] 3.9 mmol/L Normal 3.5-5.0 [facility] ([place]) Comment on above: Result Comment: Spec imen slightly hemolyzed. Performed By: #### A PTT, GFR, PRO, BMP, TROPHS #### [place] [id number] Sodium [Moles/Vol] 143 mmol/L Normal 136-145 [facility] ([place]) Comment on above: Performed By: #### A PTT, GFR, PRO, BMP, TROPHS #### [address] [address] Urea nitrogen [Mass/Vol] 17.0 mg/dL Normal 8.0-22.0 [facility] ([place]) Comment on above: Performed By: #### A PTT, GFR, PRO, BMP, TROPHS #### [address] [address] CBCon 03-14-2022 Erythrocyte distribution width (RBC) [Ratio] 11.8 % Normal 11.5-15.5 [facility] ([place]) Comment on above: Performed By: #### A PTT, GFR, PRO, BMP, TROPHS #### [place] [id number] Hematocrit (Bld) [Volume fraction] 45.4 % Normal 40.0-52.0 [facility] ([place]) Comment on above: Performed By: #### A PTT, GFR, PRO, BMP, TROPHS #### [place] [address] Hgb 15.7 G/dL Normal 13.0-17.5 [facility] ([place]) Comment on above: Performed By: #### A PTT, GFR, PRO, BMP, TROPHS #### [place] [address] MCH (RBC) [Entitic mass] 33.5 pg High 27.0-33.0 [facility] ([place]) Comment on above: Performed By: #### A PTT, GFR, PRO, BMP, TROPHS #### [place] [address] MCHC 34.6 G/dL Normal 32.0-36.0 [facility] ([place]) Comment on above: Performed By: #### A PTT, GFR, PRO, BMP, TROPHS #### [place] [address] MCV (RBC) [Entitic vol] 96.8 fL Normal 81.0-100.0 [facility] ([place]) Comment on above: Performed By: #### A PTT, GFR, PRO, BMP, TROPHS #### [place] [address] Platelet 272 10 3/mcL Normal 150-450 [facility] ([place] Comment on above: Performed By: #### A PTT, GFR, PRO, BMP, TROPHS #### [place] [address] Platelet mean volume (Bld) [Entitic vol] 7.9 fL Normal 6.4-10.5 [facility] ([place]) Comment on above: Performed By: #### A PTT, GFR, PRO, BMP, TROPHS #### [place] [address] RBC 4.69 10 6/mcL Normal 4.50-6.00 [facility] ([place]) Comment on above: Performed By: #### A PTT, GFR, PRO, BMP, TROPHS #### [address] [address] WBC 9.4 10 3/mcL Normal 4.5-10.8 [facility] ([place]) Comment on above: Performed By: #### A PTT, GFR, PRO, BMP, TROPHS #### [address] [address] [address] HEAD OR BRAIN W/O CONTRAS Ton 03-14-2022 CT HEAD OR BRAIN W/O CONTRAST ORIGINAL EXAMINATION: CT OF THE HEAD WITHOUT CONTRAST 03/14/2022 6:25 pm TECHNIQUE: CT of the head was performed without the administration of intravenous contrast. Automated exposure control, iterative reconstruction, and/or weight based adjustment of the mA/kV was utilized to reduce the radiation dose to as low as reasonably achievable. COMPARISON: 03/13/2022 HISTORY: ORDERING SYSTEM PROVIDED HISTORY: Reason for Exam: WORSENING RT SIDE WEAKNESS S/P CVA Worsening weakness on the right leg FINDINGS: There is no acute intracranial hemorrhage, mass, mass effect or abnormal extra-axial fluid collection. There is no CT evidence of acute infarct. The density in the larger dural venous sinuses is grossly normal. Patchy parenchymal hypodensities in the cerebral white matter are nonspecific but statistically most consistent with moderate chronic microvascular angiopathy. Atherosclerotic calcifications are present in the cavernous carotid arteries bilaterally. There is proportionate enlargement of the ventricular system and cortical sulci compatible with parenchymal volume loss. Chronic area of infarction in the right frontal lobe is similar to the prior study. Left basal ganglia infarct is similar to the prior study. The skull base and calvarium demonstrate no abnormality. The paranasal sinuses are clear. Included mastoid air cells are clear. IMPRESSION: No intracranial hemorrhage. No mass effect Multifocal infarcts and significant white matter disease are similar to the prior study Interpreted by: Bj Duarte MD Preliminary Report By: Bj Duarte MD Electronically signed By Bj Duarte MD Dictated Date: 03/14/2022 6:59:27 PM Prelim Date: 03/14/2022 7:01:39 PM Sign Date: 03/14/2022 7:01:39 PM Ordering Provider: KUNAAL ERIC Replaced By [facility] [place]) CVFLURVon 03-14-2022 Date of Onset [id number] Invalid Interpretation Code [facility] ([place]) Comment on above: Performed By: #### A PTT, GFR, PRO, BMP, TROPHS #### [place] [address] Employed in Healthcare No Replaced By [facility] ([place] Comment on above: Performed By: #### A PTT, GFR, PRO, BMP, TROPHS #### [place] [address] First Test No Replaced By [facility] ([place] Comment on above: Performed By: #### A PTT, GFR, PRO, BMP, TROPHS #### [place] [address] FLU A PCR Negative Normal Negative [facility] ([place] Comment on above: Result Comment: [place] [id number] Performed By: #### A PTT, GFR, PRO, BMP, TROPHS #### [place] [address] FLU B PCR Negative Normal Negative [facility] ([place] Comment on above: Result Comment: [place] [id number] Performed By: #### A PTT, GFR, PRO, BMP, TROPHS #### [place] [address] Hospitalized Yes Replaced By [facility] ([place] Comment on above: Performed By: #### A PTT, GFR, PRO, BMP, TROPHS #### [place] [address] ICU No Replaced By [facility] ([place] Comment on above: Performed By: #### A PTT, GFR, PRO, BMP, TROPHS #### [place] [address] Not Replaced By [facility] ([place] Comment on above: Performed By: #### A PTT, GFR, PRO, BMP, TROPHS #### [place] [address] Resides in Congregate Care Setting No Replaced By [facility] ([place] Comment on above: Performed By: #### A PTT, GFR, PRO, BMP, TROPHS #### [facility] [address] [place], [place] [address] RSV PCR Negative Normal Negative [facility] ([place] Comment on above: Result [place]: [place] [id number] Performed By: #### A PTT, GFR, PRO, BMP, TROPHS #### [place] [id number] SARS-CoV-2 (COVID-19) RNA ALEIDA+probe Ql (Unsp spec) Negative Normal Negative [facility] ([place]) Comment on above: Result Comment: [place] [id number] This test has been authorized by FDA under an EUA for use by authorized laboratories and has not been FDA cleared or approved. Results from the Xpert Xpress SARS-CoV-2/Flu/RSV or Xpert Xpress SARS-CoV-2 only test should be correlated with the clinical history, epidemiological data, and other data available to the clinician evaluating the patient. Performance of the Xpert Xpress SARS-CoV-2/Flu/RSV or Xpert Xpress SARS-CoV-2 only test has only been established in nasopharyngeal swab specimens. Erroneous test results might occur from improper specimen collection; failure to follow the recommended sample collection, handling, and storage procedures; technical error; or sample mix-up. False negative results may occur if virus is present at levels below the analytical limit of detection. Viral nucleic acid may persist in vivo, independent of virus viability. Detection of analyte target(s) does not imply that the corresponding virus(es) are infectious or are the causative agents for clinical symptoms. Recent patient exposure to FluMist or other live attenuated influenza vaccines may cause inaccurate positive results. 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 No (03/14/22 5:28 PM) Invalid Interpretation Code AH Auto Viro/Sero SS First Test No (03/14/22 5:28 PM) Invalid Interpretation Code AH Auto Viro/Sero SS FLU A PCR Negative 8 (03/14/22 5:28 PM) Invalid Interpretation Code Negative AH Auto Viro/Sero SS Comment on above: Result [place]: [place] [id number] FLU B PCR Negative 9 (03/14/22 5:28 PM) Invalid Interpretation Code Negative AH Auto Viro/Sero SS Comment on above: Result Comment: [place] [id number] Hospitalized Yes (03/14/22 5:28 PM) Invalid Interpretation Code AH Auto Viro/Sero SS ICU No (03/14/22 5:28 PM) Invalid Interpretation Code AH Auto Viro/Sero SS Not (03/14/22 5:28 PM) Invalid Interpretation Code AH Auto Viro/Sero SS Resides in Congregate Care Setting No (03/14/22 5:28 PM) Invalid Interpretation Code AH Auto Viro/Sero SS RSV PCR Negative 10 (03/14/22 5:28 PM) Invalid Interpretation Code Negative AH Auto Viro/Sero SS Comment on above: Result Comment: [place] [id number] SARS-CoV-2 (COVID-19) RNA ALEIDA+probe Ql (Unsp spec) Negative 7 (03/14/22 5:28 PM) Invalid Interpretation Code Negative AH Auto Viro/Sero SS Comment on above: Result Comment: [place] [id number] Symptomatic as Defined by CDC No (03/14/22 5:28 PM) Invalid Interpretation Code AH Auto Viro/Sero SS LABORATORYOrdered By: SYSTEM SYSTEM on 03-14-2022 Basophils (Bld) [#/Vol] 0.1 103/mcL Invalid Interpretation Code 0.0 - 0.3 10^3/mcL AH Workflow SS Basophils/100 WBC (Bld) 0.8 % Invalid Interpretation Code 0.0 - 2.5 % AH Workflow SS Calcium [Mass/Vol] 10.1 mg/dL Invalid Interpretation Code 8.7 - 10.4 mg/dL AH ADM SS Chloride [Moles/Vol] 110 mmol/L Invalid Interpretation Code 98 - 110 mEq/L AH ADM SS CO2 [Moles/Vol] 22 mmol/L Invalid Interpretation Code 22 - 32 mEq/L AH ADM SS Creatinine [Mass/Vol] 0.76 mg/dL Invalid Interpretation Code 0.60 - 1.40 mg/dL AH ADM SS Electrolyte Balance 11.0 mEq/L Invalid Interpretation Code 4.0 - 15.0 mEq/L ADM SS Eosinophils (Bld) [#/Vol] 0.4 103/mcL Invalid Interpretation Code 0.0 - 0.7 10^3/mcL Workflow SS Eosinophils/100 WBC (Bld) 4.1 % Invalid Interpretation Code 0.0 - 6.0 % Workflow SS Erythrocyte distribution width (RBC) [Ratio] 11.8 % Invalid Interpretation Code 11.5 - 15.5 % Workflow SS GFR/1.73 sq M.predicted among blacks MDRD (S/P/Bld) [Vol rate/Area] ml/min/1.73sqm Invalid Interpretation Code Chemistry S GFR/1.73 sq M.predicted among non-blacks MDRD (S/P/Bld) [Vol rate/Area] ml/min/1.73sqm Invalid Interpretation Code Chemistry S Glucose [Mass/Vol] 101 mg/dL Invalid Interpretation Code 82 - 115 mg/dL ADM SS Hematocrit (Bld) [Volume fraction] 45.4 % Invalid Interpretation Code 40.0 - 52.0 % Workflow SS Hemoglobin (Bld) [Mass/Vol] 15.7 G/dL Invalid Interpretation Code 13.0 - 17.5 G/dL Workflow SS Lymphocytes (Bld) [#/Vol] 2.1 103/mcL Invalid Interpretation Code 0.9 - 4.3 10^3/mcL Workflow SS Lymphocytes/100 WBC (Bld) 22.2 % Invalid Interpretation Code 20.0 - 40.0 % Workflow SS Magnesium [Mass/Vol] 2.0 mg/dL Invalid Interpretation Code 1.6 - 2.4 mg/dL ADM SS MCH (RBC) [Entitic mass] 33.5 pg Invalid Interpretation Code 27.0 - 33.0 pg Workflow SS MCHC 34.6 G/dL Invalid Interpretation Code 32.0 - 36.0 G/dL Workflow SS MCV (RBC) [Entitic vol] 96.8 fL Invalid Interpretation Code 81.0 - 100.0 fL Workflow SS Monocyte distribution width Auto (Bld) [Entitic vol] Not Performed 2 *NA* (03/14/22 6:56 AM) Invalid Interpretation Code 0.00 - 20.00 Hematology S Comment on above: Result Comment: MDW testing performed only on adult ER patients between the ages of 18-89 years. Monocytes (Bld) [#/Vol] 0.9 103/mcL Invalid Interpretation Code 0.1 - 1.4 10^3/mcL AH Workflow SS Monocytes/100 WBC (Bld) 9.5 % Invalid Interpretation Code 2.0 - 13.0 % AH Workflow SS Neutrophils (Bld) [#/Vol] 5.9 103/mcL Invalid Interpretation Code 2.3 - 8.1 10^3/mcL AH Workflow SS Neutrophils/100 WBC (Bld) 63.4 % Invalid Interpretation Code 50.0 - 75.0 % AH Workflow SS Platelet mean volume (Bld) [Entitic vol] 7.9 fL Invalid Interpretation Code 6.4 - 10.5 fL Workflow SS Platelets (Bld) [#/Vol] 272 103/mcL Invalid Interpretation Code 150 - 450 10^3/mcL AH Workflow SS Potassium [Moles/Vol] 3.9 mmol/L Invalid Interpretation Code 3.5 - 5.0 mEq/L ADM SS Comment on above: Result Comment: Spec imen slightly hemolyzed. RBC (Bld) [#/Vol] 4.69 106/mcL Invalid Interpretation Code 4.50 - 6.00 10^6/mcL AH Workflow SS Sodium [Moles/Vol] 143 mmol/L Invalid Interpretation Code 136 - 145 mEq/L AH ADM SS Urea nitrogen [Mass/Vol] 17.0 mg/dL Invalid Interpretation Code 8.0 - 22.0 mg/dL ADM SS Urea nitrogen/Creatinine [Mass ratio] 22.4 ratio Invalid Interpretation Code 10.0 - 22.0 ratio ADM SS WBC 9.4 103/mcL Invalid Interpretation Code 4.5 - 10.8 10^3/mcL Workflow SS MGon 03-14-2022 Magnesium [Mass/Vol] 2.0 mg/dL Normal 1.6-2.4 [facility] ([place]) Comment on above: Performed By: #### A PTT, GFR, PRO, BMP, TROPHS #### [address] [address] .Auto Diffon 03-13-2022 Basophil, Absolute 0.1 10 3/mcL Normal 0.0-0.3 [facility] ([place]) Comment on above: Performed By: #### A PTT, GFR, PRO, BMP, TROPHS #### [address] [address] [address] Basophils/100 WBC (Bld) 0.9 % Normal 0.0-2.5 [facility] ([place] Comment on above: Performed By: #### A PTT, GFR, PRO, BMP, TROPHS #### [address] [address] Eosinophil, Absolute 0.4 10 3/mcL Normal 0.0-0.7 [facility] ([place]) Comment on above: Performed By: #### A PTT, GFR, PRO, BMP, TROPHS #### [address] [address] Eosinophils/100 WBC (Bld) 4.2 % Normal 0.0-6.0 [facility] ([place]) Comment on above: Performed By: #### A PTT, GFR, PRO, BMP, TROPHS #### [address] [address] Lymphocyte, Absolute 2.4 10 3/mcL Normal 0.9-4.3 [facility] ([place]) Comment on above: Performed By: #### A PTT, GFR, PRO, BMP, TROPHS #### [address] [address] Lymphocytes/100 WBC (Bld) 25.9 % Normal 20.0-40.0 [facility] ([place] Comment on above: Performed By: #### A PTT, GFR, PRO, BMP, TROPHS #### [address] [address] Monocyte, Absolute 1.1 10 3/mcL Normal 0.1-1.4 [facility] ([place]) Comment on above: Performed By: #### A PTT, GFR, PRO, BMP, TROPHS #### [address] [address] Monocytes/100 WBC (Bld) 11.6 % Normal 2.0-13.0 [facility] ([place] Comment on above: Performed By: #### A PTT, GFR, PRO, BMP, TROPHS #### [address] [address] Neutrophils/100 WBC (Bld) 57.4 % Normal 50.0-75.0 [facility] ([place] Comment on above: Performed By: #### A PTT, GFR, PRO, BMP, TROPHS #### [address] [address] .GFRon 03-13-2022 GFR >60 Normal [facility] ([place]) Comment on above: Result Comment: GFR Population mean for , Non- Americans Ages 20-29 = 116 mL/min/1.73 sq.m. Ages 30-39 = 107 mL/min/1.73 sq.m. Ages 40-49 = 99 mL/min/1.73 sq.m. Ages 50-59 = 93 mL/min/1.73 sq.m. Ages 60-69 = 85 mL/min/1.73 sq.m. Ages 70+ = 75 mL/min/1.73 sq.m. Chronic Kidney Disease: Less than 60 mL/min/1.73 square meters End Stage Renal Disease: Less than 15 mL/min/1.73 square meters Performed By: #### A PTT, GFR, PRO, BMP, TROPHS #### [address] [address] GFR Non- >60 Normal [facility] ([place] Comment on above: Result Comment: GFR Population mean for , Non- Americans Ages 20-29 = 116 mL/min/1.73 sq.m. Ages 30-39 = 107 mL/min/1.73 sq.m. Ages 40-49 = 99 mL/min/1.73 sq.m. Ages 50-59 = 93 mL/min/1.73 sq.m. Ages 60-69 = 85 mL/min/1.73 sq.m. Ages 70+ = 75 mL/min/1.73 sq.m. Chronic Kidney Disease: Less than 60 mL/min/1.73 square meters End Stage Renal Disease: Less than 15 mL/min/1.73 square meters Performed By: #### A PTT, GFR, PRO, BMP, TROPHS #### [address] [address] .MDWon 03-13-2022 Monocyte Distribution Width Not performed Normal 0.00-20.00 [facility] ([place]) Comment on above: Result Comment: MDW testing performed only on adult ER patients between the ages of 18-89 years. Performed By: #### A PTT, GFR, PRO, BMP, TROPHS #### [address] [address] .NEUABSon 03-13-2022 Neutrophil, Absolute 5.3 10 3/mcL Normal 2.3-8.1 [facility] ([place] Comment on above: Performed By: #### A PTT, GFR, PRO, BMP, TROPHS #### [place] [address] A1Con 03-13-2022 HbA1c (Bld) [Mass fraction] 5.3 % Normal 4.0-6.0 [facility] ([place] Comment on above: Performed By: #### A PTT, GFR, PRO, BMP, TROPHS #### [place] [id number] BMPon 03-13-2022 BUN/Creatinine Ratio 20.7 ratio Normal 10.0-22.0 [facility] ([place] Comment on above: Performed By: #### A PTT, GFR, PRO, BMP, TROPHS #### [place] [address] Calcium [Mass/Vol] 10.2 mg/dL Normal 8.7-10.4 [facility] ([place] Comment on above: Performed By: #### A PTT, GFR, PRO, BMP, TROPHS #### [place] [address] Chloride [Moles/Vol] 111 mmol/L High 98-110 [facility] ([place] Comment on above: Performed By: #### A PTT, GFR, PRO, BMP, TROPHS #### [place] [id number] CO2 [Moles/Vol] 21 mmol/L Low 22-32 [facility] ([place] Comment on above: Performed By: #### A PTT, GFR, PRO, BMP, TROPHS #### [address] [address] Creatinine [Mass/Vol] 0.82 mg/dL Normal 0.60-1.40 [facility] ([place] Comment on above: Performed By: #### A PTT, GFR, PRO, BMP, TROPHS #### [address] [address] Electrolyte Balance 14.0 mEq/L Normal 4.0-15.0 [facility] ([place] Comment on above: Performed By: #### A PTT, GFR, PRO, BMP, TROPHS #### [place] [id number] Glucose [Mass/Vol] 106 mg/dL Normal 82-115 [facility] ([place] Comment on above: Performed By: #### A PTT, GFR, PRO, BMP, TROPHS #### [place] [address] Potassium [Moles/Vol] 4.3 mmol/L Normal 3.5-5.0 [facility] ([place] Comment on above: Result Comment: Spec imen slightly hemolyzed. Performed By: #### A PTT, GFR, PRO, BMP, TROPHS #### [place] [id number] Sodium [Moles/Vol] 146 mmol/L High 136-145 [facility] ([place] Comment on above: Performed By: #### A PTT, GFR, PRO, BMP, TROPHS #### [place] [address] Urea nitrogen [Mass/Vol] 17.0 mg/dL Normal 8.0-22.0 [facility] ([place] Comment on above: Performed By: #### A PTT, GFR, PRO, BMP, TROPHS #### [address] [address] CBCon 03-13-2022 Erythrocyte distribution width (RBC) [Ratio] 11.9 % Normal 11.5-15.5 [facility] ([place] Comment on above: Performed By: #### A PTT, GFR, PRO, BMP, TROPHS #### [place] [address] Hematocrit (Bld) [Volume fraction] 49.1 % Normal 40.0-52.0 [facility] ([place] Comment on above: Performed By: #### A PTT, GFR, PRO, BMP, TROPHS #### [place] [address] Hgb 17.0 G/dL Normal 13.0-17.5 [facility] ([place] Comment on above: Performed By: #### A PTT, GFR, PRO, BMP, TROPHS #### [place] [address] MCH (RBC) [Entitic mass] 33.9 pg High 27.0-33.0 [facility] ([place] Comment on above: Performed By: #### A PTT, GFR, PRO, BMP, TROPHS #### [place] [address] MCHC 34.7 G/dL Normal 32.0-36.0 [facility] ([place] Comment on above: Performed By: #### A PTT, GFR, PRO, BMP, TROPHS #### [place] [address] MCV (RBC) [Entitic vol] 97.7 fL Normal 81.0-100.0 [facility] ([place] Comment on above: Performed By: #### A PTT, GFR, PRO, BMP, TROPHS #### [place] [id number] Platelet 271 10 3/mcL Normal 150-450 [facility] ([place] Comment on above: Performed By: #### A PTT, GFR, PRO, BMP, TROPHS #### [place] [address] Platelet mean volume (Bld) [Entitic vol] 7.9 fL Normal 6.4-10.5 [facility] ([place]) Comment on above: Performed By: #### A PTT, GFR, PRO, BMP, TROPHS #### [place] [address] RBC 5.02 10 6/mcL Normal 4.50-6.00 [facility] ([place]) Comment on above: Performed By: #### A PTT, GFR, PRO, BMP, TROPHS #### [address] [address] WBC 9.2 10 3/mcL Normal 4.5-10.8 [facility] ([place] Comment on above: Performed By: #### A PTT, GFR, PRO, BMP, TROPHS #### [place] [id number] [address] [place] [id number] HEAD OR BRAIN W/O CONTRAS Ton 03-13-2022 CT HEAD OR BRAIN W/O CONTRAST ORIGINAL EXAMINATION: CT OF THE HEAD WITHOUT CONTRAST 03/13/2022 10:10 am TECHNIQUE: CT of the head was performed without the administration of intravenous contrast. Automated exposure control, iterative reconstruction, and/or weight based adjustment of the mA/kV was utilized to reduce the radiation dose to as low as reasonably achievable. COMPARISON: MRI brain 03/12/2022, head CT 03/10/2022 HISTORY: ORDERING SYSTEM PROVIDED HISTORY: Reason for Exam: PT HAS SLURRED SPEECH AND INCREASED RT SIDE WEAKNESS TODAY, STROKE DX YESTERDAY worsening r weakness FINDINGS: No acute intracranial hemorrhage, hydrocephalus, or mass effect. There is increasing hypodensity in the left periventricular white matter at site of known acute infarct. 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 Atherosclerotic calcifications are shown in the cavernous carotid arteries bilaterally. Remote left parietal infarct is redemonstrated. Mucous retention cyst or polyp is shown in the right maxillary sinus. The mastoid air cells are clear. Soft tissue density in the bilateral external auditory canals likely reflects cerumen but would be amenable to direct visualization. No acute calvarial abnormality. IMPRESSION: Expected evolution of left periventricular infarct without hemorrhagic transformation. Interpreted by: Barney Aponte MD Preliminary Report By: Barney Aponte MD Electronically signed By Barney Aponte MD Dictated Date: 03/13/2022 10:14:00 AM Prelim Date: 03/13/2022 10:19:45 AM Sign Date: 03/13/2022 10:19:45 AM Ordering Provider: GERA Crow [facility] ([place]) LABORATORYOrdered By: [employer] on 03-13-2022 HbA1c (Bld) [Mass fraction] 5.3 % Invalid Interpretation Code 4.0 - 6.0 % Auto Chem SS Basophils (Bld) [#/Vol] 0.1 103/mcL Invalid Interpretation Code 0.0 - 0.3 10^3/mcL Workflow SS Basophils/100 WBC (Bld) 0.9 % Invalid Interpretation Code 0.0 - 2.5 % AH Workflow SS Calcium [Mass/Vol] 10.2 mg/dL Invalid Interpretation Code 8.7 - 10.4 mg/dL ADM SS Chloride [Moles/Vol] 111 mmol/L Invalid Interpretation Code 98 - 110 mEq/L ADM SS CO2 [Moles/Vol] 21 mmol/L Invalid Interpretation Code 22 - 32 mEq/L ADM SS Creatinine [Mass/Vol] 0.82 mg/dL Invalid Interpretation Code 0.60 - 1.40 mg/dL ADM SS Electrolyte Balance 14.0 mEq/L Invalid Interpretation Code 4.0 - 15.0 mEq/L ADM SS Eosinophils (Bld) [#/Vol] 0.4 103/mcL Invalid Interpretation Code 0.0 - 0.7 10^3/mcL Workflow SS Eosinophils/100 WBC (Bld) 4.2 % Invalid Interpretation Code 0.0 - 6.0 % Workflow SS Erythrocyte distribution width (RBC) [Ratio] 11.9 % Invalid Interpretation Code 11.5 - 15.5 % Workflow SS GFR/1.73 sq M.predicted among blacks MDRD (S/P/Bld) [Vol rate/Area] ml/min/1.73sqm Invalid Interpretation Code Chemistry S GFR/1.73 sq M.predicted among non-blacks MDRD (S/P/Bld) [Vol rate/Area] ml/min/1.73sqm Invalid Interpretation Code Chemistry S Glucose [Mass/Vol] 106 mg/dL Invalid Interpretation Code 82 - 115 mg/dL ADM SS Hematocrit (Bld) [Volume fraction] 49.1 % Invalid Interpretation Code 40.0 - 52.0 % Workflow SS Hemoglobin (Bld) [Mass/Vol] 17.0 G/dL Invalid Interpretation Code 13.0 - 17.5 G/dL Workflow SS Lymphocytes (Bld) [#/Vol] 2.4 103/mcL Invalid Interpretation Code 0.9 - 4.3 10^3/mcL AH Workflow SS Lymphocytes/100 WBC (Bld) 25.9 % Invalid Interpretation Code 20.0 - 40.0 % AH Workflow SS Magnesium [Mass/Vol] 1.9 mg/dL Invalid Interpretation Code 1.6 - 2.4 mg/dL ADM SS MCH (RBC) [Entitic mass] 33.9 pg Invalid Interpretation Code 27.0 - 33.0 pg AH Workflow SS MCHC 34.7 G/dL Invalid Interpretation Code 32.0 - 36.0 G/dL AH Workflow SS MCV (RBC) [Entitic vol] 97.7 fL Invalid Interpretation Code 81.0 - 100.0 fL Workflow SS Monocyte distribution width Auto (Bld) [Entitic vol] Not Performed 3 *NA* (03/13/22 7:27 AM) Invalid Interpretation Code 0.00 - 20.00 [facility] S Comment on above: Result Comment: MDW testing performed only on adult ER patients between the ages of 18-89 years. Monocytes (Bld) [#/Vol] 1.1 103/mcL Invalid Interpretation Code 0.1 - 1.4 10^3/mcL Workflow SS Monocytes/100 WBC (Bld) 11.6 % Invalid Interpretation Code 2.0 - 13.0 % Workflow SS Neutrophils (Bld) [#/Vol] 5.3 103/mcL Invalid Interpretation Code 2.3 - 8.1 10^3/mcL Workflow SS Neutrophils/100 WBC (Bld) 57.4 % Invalid Interpretation Code 50.0 - 75.0 % Workflow SS Platelet mean volume (Bld) [Entitic vol] 7.9 fL Invalid Interpretation Code 6.4 - 10.5 fL Workflow SS Platelets (Bld) [#/Vol] 271 103/mcL Invalid Interpretation Code 150 - 450 10^3/mcL Workflow SS Potassium [Moles/Vol] 4.3 mmol/L Invalid Interpretation Code 3.5 - 5.0 mEq/L ADM SS Comment on above: Result Comment: Spec imen slightly hemolyzed. RBC (Bld) [#/Vol] 5.02 106/mcL Invalid Interpretation Code 4.50 - 6.00 10^6/mcL AH Workflow SS Sodium [Moles/Vol] 146 mmol/L Invalid Interpretation Code 136 - 145 mEq/L ADM SS Urea nitrogen [Mass/Vol] 17.0 mg/dL Invalid Interpretation Code 8.0 - 22.0 mg/dL ADM SS Urea nitrogen/Creatinine [Mass ratio] 20.7 ratio Invalid Interpretation Code 10.0 - 22.0 ratio AH ADM SS WBC 9.2 103/mcL Invalid Interpretation Code 4.5 - 10.8 10^3/mcL AH Workflow SS MGon 03-13-2022 Magnesium [Mass/Vol] 1.9 mg/dL Normal 1.6-2.4 [facility] ([place]) Comment on above: Performed By: #### A PTT, GFR, PRO, BMP, TROPHS #### [address] [address] .Auto Diffon 03-12-2022 Basophil, Absolute 0.1 10 3/mcL Normal 0.0-0.3 [facility] ([place]) Comment on above: Performed By: #### A PTT, GFR, PRO, BMP, TROPHS #### [address] [address] Basophils/100 WBC (Bld) 1.5 % Normal 0.0-2.5 [facility] ([place]) Comment on above: Performed By: #### A PTT, GFR, PRO, BMP, TROPHS #### [address] [address] Eosinophil, Absolute 0.4 10 3/mcL Normal 0.0-0.7 [facility] ([place]) Comment on above: Performed By: #### A PTT, GFR, PRO, BMP, TROPHS #### [address] [address] Eosinophils/100 WBC (Bld) 5.0 % Normal 0.0-6.0 [facility] ([place] Comment on above: Performed By: #### A PTT, GFR, PRO, BMP, TROPHS #### [address] [address] Lymphocyte, Absolute 2.4 10 3/mcL Normal 0.9-4.3 [facility] ([place] Comment on above: Performed By: #### A PTT, GFR, PRO, BMP, TROPHS #### [address] [address] Lymphocytes/100 WBC (Bld) 29.6 % Normal 20.0-40.0 [facility] ([place] Comment on above: Performed By: #### A PTT, GFR, PRO, BMP, TROPHS #### [address] [address] Monocyte, Absolute 1.0 10 3/mcL Normal 0.1-1.4 [facility] ([place]) Comment on above: Performed By: #### A PTT, GFR, PRO, BMP, TROPHS #### [address] [address] Monocytes/100 WBC (Bld) 12.6 % Normal 2.0-13.0 [facility] ([place] Comment on above: Performed By: #### A PTT, GFR, PRO, BMP, TROPHS #### [address] [address] Neutrophils/100 WBC (Bld) 51.3 % Normal 50.0-75.0 [facility] ([place] Comment on above: Performed By: #### A PTT, GFR, PRO, BMP, TROPHS #### [address] [address] .GFRon 03-12-2022 GFR Non- >60 Normal [facility] ([place]) Comment on above: Result Comment: GFR Population mean for , Non- Americans Ages 20-29 = 116 mL/min/1.73 sq.m. Ages 30-39 = 107 mL/min/1.73 sq.m. Ages 40-49 = 99 mL/min/1.73 sq.m. Ages 50-59 = 93 mL/min/1.73 sq.m. Ages 60-69 = 85 mL/min/1.73 sq.m. Ages 70+ = 75 mL/min/1.73 sq.m. Chronic Kidney Disease: Less than 60 mL/min/1.73 square meters End Stage Renal Disease: Less than 15 mL/min/1.73 square meters Performed By: #### A PTT, GFR, PRO, BMP, TROPHS #### [address] [address] GFR >60 Normal [facility] ([place]) Comment on above: Result Comment: GFR Population mean for , Non- Americans Ages 20-29 = 116 mL/min/1.73 sq.m. Ages 30-39 = 107 mL/min/1.73 sq.m. Ages 40-49 = 99 mL/min/1.73 sq.m. Ages 50-59 = 93 mL/min/1.73 sq.m. Ages 60-69 = 85 mL/min/1.73 sq.m. Ages 70+ = 75 mL/min/1.73 sq.m. Chronic Kidney Disease: Less than 60 mL/min/1.73 square meters End Stage Renal Disease: Less than 15 mL/min/1.73 square meters Performed By: #### A PTT, GFR, PRO, BMP, TROPHS #### [address] [address] .MDWon 03-12-2022 Monocyte Distribution Width Not performed Normal 0.00-20.00 [facility] ([place] Comment on above: Result Comment: MDW testing performed only on adult ER patients between the ages of 18-89 years. Performed By: #### A PTT, GFR, PRO, BMP, TROPHS #### [address] [address] .NEUABSon 03-12-2022 Neutrophil, Absolute 4.3 10 3/mcL Normal 2.3-8.1 [facility] ([place] Comment on above: Performed By: #### A PTT, GFR, PRO, BMP, TROPHS #### [address] [address] BMPon 03-12-2022 BUN/Creatinine Ratio 19.7 ratio Normal 10.0-22.0 [facility] ([place] Comment on above: Performed By: #### A PTT, GFR, PRO, BMP, TROPHS #### [address] [address] Calcium [Mass/Vol] 10.2 mg/dL Normal 8.7-10.4 [facility] ([place] Comment on above: Performed By: #### A PTT, GFR, PRO, BMP, TROPHS #### [address] [address] Chloride [Moles/Vol] 108 mmol/L Normal 98-110 [facility] ([place] Comment on above: Performed By: #### A PTT, GFR, PRO, BMP, TROPHS #### [address] [address] CO2 [Moles/Vol] 22 mmol/L Normal 22-32 [facility] ([place] Comment on above: Performed By: #### A PTT, GFR, PRO, BMP, TROPHS #### [address] [address] Creatinine [Mass/Vol] 0.76 mg/dL Normal 0.60-1.40 [facility] ([place] Comment on above: Performed By: #### A PTT, GFR, PRO, BMP, TROPHS #### [address] [address] Electrolyte Balance 11.0 mEq/L Normal 4.0-15.0 [facility] ([place] Comment on above: Performed By: #### A PTT, GFR, PRO, BMP, TROPHS #### [address] [address] Glucose [Mass/Vol] 99 mg/dL Normal 82-115 [facility] ([place] Comment on above: Performed By: #### A PTT, GFR, PRO, BMP, TROPHS #### [address] [address] Potassium [Moles/Vol] 3.9 mmol/L Normal 3.5-5.0 [facility] ([place] Comment on above: Result Comment: Spec imen slightly hemolyzed. Performed By: #### A PTT, GFR, PRO, BMP, TROPHS #### [address] [address] Sodium [Moles/Vol] 141 mmol/L Normal 136-145 [facility] ([place] Comment on above: Performed By: #### A PTT, GFR, PRO, BMP, TROPHS #### [address] [address] Urea nitrogen [Mass/Vol] 15.0 mg/dL Normal 8.0-22.0 [facility] ([place] Comment on above: Performed By: #### A PTT, GFR, PRO, BMP, TROPHS #### [address] [address] CBCon 03-12-2022 Erythrocyte distribution width (RBC) [Ratio] 11.9 % Normal 11.5-15.5 [facility] ([place] Comment on above: Performed By: #### A PTT, GFR, PRO, BMP, TROPHS #### [place] [address] Hematocrit (Bld) [Volume fraction] 47.4 % Normal 40.0-52.0 [facility] ([place] Comment on above: Performed By: #### A PTT, GFR, PRO, BMP, TROPHS #### [place] [address] Hgb 16.5 G/dL Normal 13.0-17.5 [facility] ([place] Comment on above: Performed By: #### A PTT, GFR, PRO, BMP, TROPHS #### [place] [address] MCH (RBC) [Entitic mass] 33.4 pg High 27.0-33.0 [facility] ([place] Comment on above: Performed By: #### A PTT, GFR, PRO, BMP, TROPHS #### [place] [address] MCHC 34.7 G/dL Normal 32.0-36.0 [facility] ([place] Comment on above: Performed By: #### A PTT, GFR, PRO, BMP, TROPHS #### [place] [address] MCV (RBC) [Entitic vol] 96.2 fL Normal 81.0-100.0 [facility] ([place] Comment on above: Performed By: #### A PTT, GFR, PRO, BMP, TROPHS #### [place] [address] Platelet 330 10 3/mcL Normal 150-450 [facility] ([place]) Comment on above: Performed By: #### A PTT, GFR, PRO, BMP, TROPHS #### [place] [address] [place] [address] Platelet mean volume (Bld) [Entitic vol] 7.7 fL Normal 6.4-10.5 [facility] ([place] Comment on above: Performed By: #### A PTT, GFR, PRO, BMP, TROPHS #### [address] [address] RBC 4.92 10 6/mcL Normal 4.50-6.00 [facility] ([place] Comment on above: Performed By: #### A PTT, GFR, PRO, BMP, TROPHS #### [address] [address] WBC 8.3 10 3/mcL Normal 4.5-10.8 [facility] ([place] Comment on above: Performed By: #### A PTT, GFR, PRO, BMP, TROPHS #### [address] [address] LABORATORYOrdered By: Daniel Maddox on 03-12-2022 Cholesterol [Mass/Vol] 271 mg/dL Invalid Interpretation Code 50 - 199 mg/dL ADM SS Cholesterol in HDL [Mass/Vol] 42 mg/dL Invalid Interpretation Code 40 - 59 mg/dL ADM SS Cholesterol in LDL [Mass/Vol] 195 mg/dL Invalid Interpretation Code 0 - 129 mg/dL AH ADM SS Triglyceride [Mass/Vol] 168 mg/dL Invalid Interpretation Code 3 - 149 mg/dL AH ADM SS Comment on above: Result Comment: Spec imen icteric. Results may be affected. LABORATORYOrdered By: Zohreh Lange on 03-12-2022 Appearance (U) Hazy *ABN* (03/12/22 4:36 AM) Invalid Interpretation Code Clear AH Auto Urine SS Bacteria LM.HPF (Urine sed) [#/Area] Trace /HPF Invalid Interpretation Code Negative/HPF AH Auto Urine SS Bilirubin Ql (U) Moderate *ABN* (03/12/22 4:36 AM) Invalid Interpretation Code Neg-Trace AH Auto Urine SS Calcium oxalate crystals LM.HPF (Urine sed) [#/Area] 4 /[HPF] Invalid Interpretation Code AH Auto Urine SS Color (U) Dark Yellow *NA* (03/12/22 4:36 AM) Invalid Interpretation Code AH Auto Urine SS Glucose Test strip (U) [Mass/Vol] Negative Invalid Interpretation Code Negativemg/d L AH Auto Urine SS Hemoglobin Auto test strip (U) [Mass/Vol] Negative (03/12/22 4:36 AM) Invalid Interpretation Code Neg-Trace AH Auto Urine SS Ketones Ql (U) 15 mg/dL Invalid Interpretation Code Neg-Tracemg/ dL AH Auto Urine SS UA Leuk Est Negative (03/12/22 4:36 AM) Invalid Interpretation Code Negative Auto Urine SS UA Mucous 4+ /HPF Invalid Interpretation Code AH Auto Urine SS UA Nitrite Negative (03/12/22 4:36 AM) Invalid Interpretation Code Negative AH Auto Urine SS UA pH 6.0 (03/12/22 4:36 AM) Invalid Interpretation Code 5.0 - 8.0 AH Auto Urine SS UA Protein Negative Invalid Interpretation Code Negativemg/d L AH Auto Urine SS UA RBC Negative Invalid Interpretation Code 0-2/HPF Auto Urine SS UA Spec Grav 1.025 (03/12/22 4:36 AM) Invalid Interpretation Code 1.006-1.029 Auto Urine SS UA Specimen Type Clean Catch (03/12/22 4:36 AM) Invalid Interpretation Code AH Auto Urine SS UA Squam Epithelial 0-2 /HPF Invalid Interpretation Code 0-20/HPF AH Auto Urine SS UA Urobilinogen 1.0 E.U./dL Invalid Interpretation Code 0.2-1.0E.U./ dL AH Auto Urine SS WBC LM.HPF (Urine sed) [#/Area] 3-5 /HPF Invalid Interpretation Code 0-5/HPF Auto Urine SS LIPIDon 03-12-2022 Cholesterol [Mass/Vol] 271 mg/dL High 50-199 [facility] ([place] Comment on above: Result Comment: Chol esterol Reference Interval: Less than 200 Desirable 200-239 Borderline high risk 240 and above High risk Performed By: #### A PTT, GFR, PRO, BMP, TROPHS #### [address] [address] Cholesterol in HDL [Mass/Vol] 42 mg/dL Normal 40-59 [facility] ([place] Comment on above: Performed By: #### A PTT, GFR, PRO, BMP, TROPHS #### [address] [address] Cholesterol in LDL [Mass/Vol] 195 mg/dL High 0-129 [facility] ([place] Comment on above: Performed By: #### A PTT, GFR, PRO, BMP, TROPHS #### [address] [address] Triglyceride [Mass/Vol] 168 mg/dL High 3-149 [facility] ([place] Comment on above: Result Comment: Spec imen icteric. Results may be affected. Performed By: #### A PTT, GFR, PRO, BMP, TROPHS #### [address] [address] MRI BRAIN W/O CONTRASTon MRI BRAIN W/O CONTRAST ORIGINAL EXAMINATION: MRI OF THE BRAIN WITHOUT CONTRAST 03/12/2022 7:02 pm TECHNIQUE: Multiplanar multisequence MRI of the brain was performed without the administration of intravenous contrast. COMPARISON: CT and CTA head 03/10/2022 HISTORY: ORDERING SYSTEM PROVIDED HISTORY: Reason for Exam: TIA/Stroke FINDINGS: INTRACRANIAL STRUCTURES/VENTRICLES : 2.3 x 1.3 cm restricted diffusion in the left periventricular caudothalamic groove region. No abnormal parenchymal susceptibility on GRE. Chronic encephalomalacia left postcentral gyrus. Chronic lacunar infarcts in the left putamen, right thalamus, and bilateral subinsular regions. Confluent white matter FLAIR hyperintensities extending up to the right superior frontal gyrus are nonspecific but statistically most consistent with mild chronic microvascular angiopathy. The ventricles are mildly enlarged with commensurate enlargement of the sulci most consistent with mild age-related volume loss. No mass effect or midline shift. No evidence of an acute intracranial hemorrhage. The sellar/suprasellar regions appear unremarkable. The normal signal voids within the major intracranial vessels appear maintained. ORBITS: The visualized portion of the orbits demonstrate no acute abnormality. SINUSES: T2 hyperintense right maxillary sinus retention cyst. BONES/SOFT TISSUES: The bone marrow signal intensity appears normal. The soft tissues demonstrate no acute abnormality. 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 Volume loss. Communication was initiated by this physician via the radiology results communication center in PACS at 7:12 pm on 03/12/2022 to be communicated to a licensed caregiver. The Interpreted by: Ezequiel Aponte Preliminary Report By: Ezequiel Aponte Electronically signed By Ezequiel Aponte Dictated Date: 03/12/2022 7:08:28 PM Prelim Date: 03/12/2022 7:13:35 PM Sign Date: 03/12/2022 7:13:35 PM Ordering Provider: MERCY MADDEN Normal [facility] [place] [facility] 03-12-2022 Color (U) Dark Yellow Normal [facility] ([place]) Comment on above: Performed By: #### A PTT, GFR, PRO, BMP, TROPHS #### [place] [address] Glucose (U) [Mass/Vol] Negative Normal Negative [facility] ([place]) Comment on above: Performed By: #### A PTT, GFR, PRO, BMP, TROPHS #### [place] [address] Ketones Ql (U) 15 mg/dL Abnormal Neg-Trace [facility] ([place]) Comment on above: Performed By: #### A PTT, GFR, PRO, BMP, TROPHS #### [place] [address] UA Appear Hazy Abnormal Clear [facility] ([place] Comment on above: Performed By: #### A PTT, GFR, PRO, BMP, TROPHS #### [address] [address] UA Bili Moderate Abnormal Neg-Trace [facility] ([place] Comment on above: Performed By: #### A PTT, GFR, PRO, BMP, TROPHS #### [address] [address] UA Blood Negative Normal Neg-Trace [facility] ([place] Comment on above: Performed By: #### A PTT, GFR, PRO, BMP, TROPHS #### [place] [id number] UA Leuk Est Negative Normal Negative [facility] ([place] Comment on above: Performed By: #### A PTT, GFR, PRO, BMP, TROPHS #### [place] [id number] UA Nitrite Negative Normal Negative [facility] ([place] Comment on above: Performed By: #### A PTT, GFR, PRO, BMP, TROPHS #### [address] [address] UA pH 6.0 Normal 5.0 - 8.0 [facility] ([place]) Comment on above: Performed By: #### A PTT, GFR, PRO, BMP, TROPHS #### [address] [address] UA Protein Negative Normal Negative [facility] ([place] Comment on above: Performed By: #### A PTT, GFR, PRO, BMP, TROPHS #### [address] [address] UA Spec Grav 1.025 Normal 1.006-1.029 [facility] ([place]) Comment on above: Performed By: #### A PTT, GFR, PRO, BMP, TROPHS #### [address] [address] UA Specimen Type Clean Catch Normal [facility] ([place] Comment on above: Performed By: #### A PTT, GFR, PRO, BMP, TROPHS #### [address] [address] UA Urobilinogen 1.0 E.U./dL Normal 0.2-1.0 [facility] ([place]) Comment on above: Performed By: #### A PTT, GFR, PRO, BMP, TROPHS #### [address] [address] UAMICon 03-12-2022 UA Bacteria Trace Abnormal Negative [facility] ([place]) Comment on above: Performed By: #### A PTT, GFR, PRO, BMP, TROPHS #### [address] [address] UA CA Ox Crystal 4+ /hpf Normal [facility] ([place] Comment on above: Performed By: #### A PTT, GFR, PRO, BMP, TROPHS #### [address] [address] UA Mucous 4+ /hpf Normal [facility] ([place]) Comment on above: Performed By: #### A PTT, GFR, PRO, BMP, TROPHS #### [address] [address] UA RBC Negative Normal 0-2 [facility] ([place] Comment on above: Performed By: #### A PTT, GFR, PRO, BMP, TROPHS #### [address] [address] UA Squam Epithelial 0-2 Normal 0-20 [facility] ([place]) Comment on above: Performed By: #### A PTT, GFR, PRO, BMP, TROPHS #### [address] [address] UA WBC 3-5 Normal 0-5 [facility] ([place]) Comment on above: Performed By: #### A PTT, GFR, PRO, BMP, TROPHS #### [address] [address] .Auto Diffon 03-11-2021 Basophil, Absolute 0.1 10 3/mcL Normal 0.0-0.3 [facility] ([place]) Comment on above: Performed By: #### A PTT, GFR, PRO, BMP, TROPHS #### [address] [address] Basophils/100 WBC (Bld) 0.8 % Normal 0.0-2.5 [facility] ([place]) Comment on above: Performed By: #### A PTT, GFR, PRO, BMP, TROPHS #### [address] [address] Eosinophil, Absolute 0.3 10 3/mcL Normal 0.0-0.7 [facility] ([place]) Comment on above: Performed By: #### A PTT, GFR, PRO, BMP, TROPHS #### [address] [address] Eosinophils/100 WBC (Bld) 3.8 % Normal 0.0-6.0 [facility] ([place]) Comment on above: Performed By: #### A PTT, GFR, PRO, BMP, TROPHS #### [address] [address] Lymphocyte, Absolute 1.9 10 3/mcL Normal 0.9-4.3 [facility] ([place]) Comment on above: Performed By: #### A PTT, GFR, PRO, BMP, TROPHS #### [address] [address] Lymphocytes/100 WBC (Bld) 23.7 % Normal 20.0-40.0 [facility] ([place]) Comment on above: Performed By: #### A PTT, GFR, PRO, BMP, TROPHS #### [address] [address] Monocyte, Absolute 0.9 10 3/mcL Normal 0.1-1.4 [facility] ([place]) Comment on above: Performed By: #### A PTT, GFR, PRO, BMP, TROPHS #### [address] [address] Monocytes/100 WBC (Bld) 11.4 % Normal 2.0-13.0 [facility] ([place]) Comment on above: Performed By: #### A PTT, GFR, PRO, BMP, TROPHS #### [address] [address] Neutrophils/100 WBC (Bld) 60.3 % Normal 50.0-75.0 [facility] ([place]) Comment on above: Performed By: #### A PTT, GFR, PRO, BMP, TROPHS #### [address] [address] .GFRon 03-11-2022 GFR >60 Normal [facility] ([place]) Comment on above: Result Comment: GFR Population mean for , Non- Americans Ages 20-29 = 116 mL/min/1.73 sq.m. Ages 30-39 = 107 mL/min/1.73 sq.m. Ages 40-49 = 99 mL/min/1.73 sq.m. Ages 50-59 = 93 mL/min/1.73 sq.m. Ages 60-69 = 85 mL/min/1.73 sq.m. Ages 70+ = 75 mL/min/1.73 sq.m. Chronic Kidney Disease: Less than 60 mL/min/1.73 square meters End Stage Renal Disease: Less than 15 mL/min/1.73 square meters Performed By: #### A PTT, GFR, PRO, BMP, TROPHS #### [address] [address] GFR Non- >60 Normal [facility] ([place]) Comment on above: Result Comment: GFR Population mean for , Non- Americans Ages 20-29 = 116 mL/min/1.73 sq.m. Ages 30-39 = 107 mL/min/1.73 sq.m. Ages 40-49 = 99 mL/min/1.73 sq.m. Ages 50-59 = 93 mL/min/1.73 sq.m. Ages 60-69 = 85 mL/min/1.73 sq.m. Ages 70+ = 75 mL/min/1.73 sq.m. Chronic Kidney Disease: Less than 60 mL/min/1.73 square meters End Stage Renal Disease: Less than 15 mL/min/1.73 square meters Performed By: #### A PTT, GFR, PRO, BMP, TROPHS #### [place] [id number] .MDWon 03-11-2022 Monocyte Distribution Width Not performed Normal 0.00-20.00 [facility] ([place]) Comment on above: Result Comment: MDW testing performed only on adult ER patients between the ages of 18-89 years. Performed By: #### A PTT, GFR, PRO, BMP, TROPHS #### [address] [address] .NEUABSon 03-11-2022 Neutrophil, Absolute 4.9 10 3/mcL Normal 2.3-8.1 [facility] ([place]) Comment on above: Performed By: #### A PTT, GFR, PRO, BMP, TROPHS #### [address] [address] A1Con 03-11-2022 HbA1c (Bld) [Mass fraction] 5.4 % Normal 4.0-6.0 [facility] ([place]) Comment on above: Performed By: #### A PTT, GFR, PRO, BMP, TROPHS #### [address] [address] BMPon 03-11-2022 BUN/Creatinine Ratio 13.3 ratio Normal 10.0-22.0 [facility] ([place]) Comment on above: Performed By: #### A PTT, GFR, PRO, BMP, TROPHS #### [address] [address] Creatinine [Mass/Vol] 0.75 mg/dL Normal 0.60-1.40 [facility] ([place]) Comment on above: Performed By: #### A PTT, GFR, PRO, BMP, TROPHS #### [address] [address] Calcium [Mass/Vol] 9.6 mg/dL Normal 8.7-10.4 [facility] ([place]) Comment on above: Performed By: #### A PTT, GFR, PRO, BMP, TROPHS #### [address] [address] Chloride [Moles/Vol] 111 mmol/L High 98-110 [facility] ([place]) Comment on above: Performed By: #### A PTT, GFR, PRO, BMP, TROPHS #### [address] [address] CO2 [Moles/Vol] 24 mmol/L Normal 22-32 [facility] ([place]) Comment on above: Performed By: #### A PTT, GFR, PRO, BMP, TROPHS #### [address] [address] Electrolyte Balance 8.0 mEq/L Normal 4.0-15.0 [facility] ([place]) Comment on above: Performed By: #### A PTT, GFR, PRO, BMP, TROPHS #### [address] [address] Glucose [Mass/Vol] 105 mg/dL Normal 82-115 [facility] ([place]) Comment on above: Performed By: #### A PTT, GFR, PRO, BMP, TROPHS #### [address] [address] Potassium [Moles/Vol] 3.6 mmol/L Normal 3.5-5.0 [facility] ([place]) Comment on above: Performed By: #### A PTT, GFR, PRO, BMP, TROPHS #### [place] [id number] Sodium [Moles/Vol] 143 mmol/L Normal 136-145 [facility] ([place]) Comment on above: Performed By: #### A PTT, GFR, PRO, BMP, TROPHS #### [place] [address] Urea nitrogen [Mass/Vol] 10.0 mg/dL Normal 8.0-22.0 [facility] ([place]) Comment on above: Performed By: #### A PTT, GFR, PRO, BMP, TROPHS #### [place] [address] CBCon 03-11-2022 Erythrocyte distribution width (RBC) [Ratio] 11.7 % Normal 11.5-15.5 [facility] ([place]) Comment on above: Performed By: #### A PTT, GFR, PRO, BMP, TROPHS #### [place] [address] Hematocrit (Bld) [Volume fraction] 45.9 % Normal 40.0-52.0 [facility] ([place]) Comment on above: Performed By: #### A PTT, GFR, PRO, BMP, TROPHS #### [place] [address] Hgb 16.2 G/dL Normal 13.0-17.5 [facility] ([place]) Comment on above: Performed By: #### A PTT, GFR, PRO, BMP, TROPHS #### [place] [address] MCH (RBC) [Entitic mass] 33.7 pg High 27.0-33.0 [facility] ([place]) Comment on above: Performed By: #### A PTT, GFR, PRO, BMP, TROPHS #### [place] [address] MCHC 35.2 G/dL Normal 32.0-36.0 [facility] ([place]) Comment on above: Performed By: #### A PTT, GFR, PRO, BMP, TROPHS #### [facility] [address] [place], [place] [address] MCV (RBC) [Entitic vol] 95.6 fL Normal 81.0-100.0 [facility] ([place]) Comment on above: Performed By: #### A PTT, GFR, PRO, BMP, TROPHS #### [address] [address] Platelet 331 10 3/mcL Normal 150-450 [facility] ([place]) Comment on above: Performed By: #### A PTT, GFR, PRO, BMP, TROPHS #### [address] [address] Platelet mean volume (Bld) [Entitic vol] 7.4 fL Normal 6.4-10.5 [facility] ([place]) Comment on above: Performed By: #### A PTT, GFR, PRO, BMP, TROPHS #### [address] [address] RBC 4.81 10 6/mcL Normal 4.50-6.00 [facility] ([place]) Comment on above: Performed By: #### A PTT, GFR, PRO, BMP, TROPHS #### [address] [address] WBC 8.1 10 3/mcL Normal 4.5-10.8 [facility] ([place] Comment on above: Performed By: #### A PTT, GFR, PRO, BMP, TROPHS #### [address] [address] LABORATORYOrdered By: SYSTEM SYSTEM on 03-11-2022 HbA1c (Bld) [Mass fraction] 5.4 % Invalid Interpretation Code 4.0 - 6.0 % Auto Chem SS Phosphate [Mass/Vol] 2.7 mg/dL Invalid Interpretation Code 2.4 - 5.1 mg/dL ADM SS Troponin I.cardiac DL <= 0.01 ng/mL [Mass/Vol] 17.36 ng/L Invalid Interpretation Code 0.00 - 54.00 ng/L ADM SS TSH Qn 4.017 mIU/mL Invalid Interpretation Code 0.550 - 4.780 mIU/mL ADM SS LABORATORYOrdered By: Alli Moran on 03-11-2022 INR Coag (PPP) [Relative time] 1.0 {INR} Invalid Interpretation Code AH Auto Coag SS PT Coag (PPP) [Time] 12.5 s Invalid Interpretation Code 9.0 - 14.9 seconds AH Auto Coag SS MGon 03-11-2022 Magnesium [Mass/Vol] 2.0 mg/dL Normal 1.6-2.4 [facility] ([place]) Comment on above: Performed By: #### A PTT, GFR, PRO, BMP, TROPHS #### [place] [address] PHOSon 03-11-2022 Phosphate [Mass/Vol] 2.7 mg/dL Normal 2.4-5.1 [facility] ([place]) Comment on above: Result Comment: No te - New Reference Range in effect 20 Performed By: #### A PTT, GFR, PRO, BMP, TROPHS #### [place] [address] PROon 03-11-2022 INR Coag (PPP) [Relative time] 1.0 {INR} Normal [facility] ([place]) Comment on above: Result Comment: The [employer] (CHEST, 1992, [id number]) recommended therapeutic range for oral anticoagulant therapy is: LOW RISK: Prophylaxis of venous thrombosis INR: 2.0-3.0 Treatment of pulmonary embolism 2.0-3.0 Prevention of systemic embolism 2.0-3.0 HIGH RISK: Mechanical prosthetic valves 2.5-3.5 Performed By: #### A PTT, GFR, PRO, BMP, TROPHS #### [place] [address] PT Coag (PPP) [Time] 12.5 s Normal 9.0-14.9 [facility] ([place]) Comment on above: Result Comment: Effe ctive 03/06/08, Protime results may be affected by some antibiotics (i.e. Ciprofloxacin, Azithromycin, Bactrim) which may potentiate the action of oral anticoagulants, with further increases in Protime/INR. Performed By: #### A PTT, GFR, PRO, BMP, TROPHS #### [place] [address] TROPHSon 03-11-2022 Troponin I High Sensitivity 17.36 ng/L Normal 0.00-54.00 [facility] ([place]) Comment on above: Result Comment: If t he High Sensitive Troponin result is below the 99th percentile value (<45 ng/L) at the first blood draw, at least two additional blood samples should be drawn before results are interpreted as negative for AMI. Performed By: #### A PTT, GFR, PRO, BMP, TROPHS #### [address] [address] TSHon 03-11-2022 TSH 4.017 mIU/mL Normal 0.550-4.780 [facility] ([place]) Comment on above: Result Comment: No te - New Reference Range in effect 20 Performed By: #### A PTT, GFR, PRO, BMP, TROPHS #### [address] [address] .Auto Diffon 03-10-2022 Basophil, Absolute 0.1 10 3/mcL Normal 0.0-0.3 [facility] ([place]) Comment on above: Performed By: #### A PTT, GFR, PRO, BMP, TROPHS #### [address] [address] Basophils/100 WBC (Bld) 0.9 % Normal 0.0-2.5 [facility] ([place]) Comment on above: Performed By: #### A PTT, GFR, PRO, BMP, TROPHS #### [address] [address] Eosinophil, Absolute 0.3 10 3/mcL Normal 0.0-0.7 [facility] ([place]) Comment on above: Performed By: #### A PTT, GFR, PRO, BMP, TROPHS #### [address] [address] Eosinophils/100 WBC (Bld) 3.8 % Normal 0.0-6.0 [facility] ([place]) Comment on above: Performed By: #### A PTT, GFR, PRO, BMP, TROPHS #### [address] [address] Lymphocyte, Absolute 2.3 10 3/mcL Normal 0.9-4.3 [facility] ([place]) Comment on above: Performed By: #### A PTT, GFR, PRO, BMP, TROPHS #### [address] [address] Lymphocytes/100 WBC (Bld) 30.0 % Normal 20.0-40.0 [facility] ([place]) Comment on above: Performed By: #### A PTT, GFR, PRO, BMP, TROPHS #### [address] [address] Monocyte, Absolute 0.8 10 3/mcL Normal 0.1-1.4 [facility] ([place]) Comment on above: Performed By: #### A PTT, GFR, PRO, BMP, TROPHS #### [address] [address] Monocytes/100 WBC (Bld) 10.7 % Normal 2.0-13.0 [facility] ([place] Comment on above: Performed By: #### A PTT, GFR, PRO, BMP, TROPHS #### [address] [address] Neutrophils/100 WBC (Bld) 54.6 % Normal 50.0-75.0 [facility] ([place]) Comment on above: Performed By: #### A PTT, GFR, PRO, BMP, TROPHS #### [address] [address] .GFRon 03-10-2022 GFR >60 Normal [facility] ([place]) Comment on above: Result Comment: GFR Population mean for , Non- Americans Ages 20-29 = 116 mL/min/1.73 sq.m. Ages 30-39 = 107 mL/min/1.73 sq.m. Ages 40-49 = 99 mL/min/1.73 sq.m. Ages 50-59 = 93 mL/min/1.73 sq.m. Ages 60-69 = 85 mL/min/1.73 sq.m. Ages 70+ = 75 mL/min/1.73 sq.m. Chronic Kidney Disease: Less than 60 mL/min/1.73 square meters End Stage Renal Disease: Less than 15 mL/min/1.73 square meters Performed By: #### A PTT, GFR, PRO, BMP, TROPHS #### [place] [id number] GFR Non- >60 Normal [facility] ([place]) Comment on above: Result Comment: GFR Population mean for , Non- Americans Ages 20-29 = 116 mL/min/1.73 sq.m. Ages 30-39 = 107 mL/min/1.73 sq.m. Ages 40-49 = 99 mL/min/1.73 sq.m. Ages 50-59 = 93 mL/min/1.73 sq.m. Ages 60-69 = 85 mL/min/1.73 sq.m. Ages 70+ = 75 mL/min/1.73 sq.m. Chronic Kidney Disease: Less than 60 mL/min/1.73 square meters End Stage Renal Disease: Less than 15 mL/min/1.73 square meters Performed By: #### A PTT, GFR, PRO, BMP, TROPHS #### [place] [address] .MDWon 03-10-2022 Monocyte Distribution Width 18.78 Normal 0.00-20.00 [facility] ([place]) Comment on above: Result Comment: For ED adult patients suspected of sepsis, MDW<=20.0 does not rule out sepsis or risk of sepsis Performed By: #### A PTT, GFR, PRO, BMP, TROPHS #### [place] [address] .NEUABSon 03-10-2022 Neutrophil, Absolute 4.2 10 3/mcL Normal 2.3-8.1 [facility] ([place]) Comment on above: Performed By: #### A PTT, GFR, PRO, BMP, TROPHS #### [place] [address] APTTon 03-10-2022 aPTT Coag (Bld) [Time] 31.3 s Normal 25.0-35.0 [facility] ([place]) Comment on above: Result Comment: For Heparin anticoagulation therapy, the recommended therapeutic range is: 54-77 seconds (APTT Correlation with Anti-Xa therapeutic range of 0.3-0.7 units/ml). PLEASE REFERENCE THE PHARMACY PROTOCOL FOR DOSING. Performed By: #### A PTT, GFR, PRO, BMP, TROPHS #### [address] [address] Heparin dose (APTT) None Normal [facility] ([place]) Comment on above: Performed By: #### A PTT, GFR, PRO, BMP, TROPHS #### [place] [id number] BMPon 03-10-2022 BUN/Creatinine Ratio 10.1 ratio Normal 10.0-22.0 [facility] ([place]) Comment on above: Performed By: #### A PTT, GFR, PRO, BMP, TROPHS #### [place] [address] Calcium [Mass/Vol] 10.1 mg/dL Normal 8.7-10.4 [facility] ([place]) Comment on above: Performed By: #### A PTT, GFR, PRO, BMP, TROPHS #### [place] [address] Chloride [Moles/Vol] 111 mmol/L High 98-110 [facility] ([place]) Comment on above: Performed By: #### A PTT, GFR, PRO, BMP, TROPHS #### [place] [id number] CO2 [Moles/Vol] 26 mmol/L Normal 22-32 [facility] ([place]) Comment on above: Performed By: #### A PTT, GFR, PRO, BMP, TROPHS #### [address] [address] Creatinine [Mass/Vol] 0.89 mg/dL Normal 0.60-1.40 [facility] ([place]) Comment on above: Performed By: #### A PTT, GFR, PRO, BMP, TROPHS #### [address] [address] Electrolyte Balance 8.0 mEq/L Normal 4.0-15.0 [facility] ([place] Comment on above: Performed By: #### A PTT, GFR, PRO, BMP, TROPHS #### [address] [address] Glucose [Mass/Vol] 103 mg/dL Normal 82-115 [facility] ([place] Comment on above: Performed By: #### A PTT, GFR, PRO, BMP, TROPHS #### [address] [address] Potassium [Moles/Vol] 3.5 mmol/L Normal 3.5-5.0 [facility] ([place]) Comment on above: Performed By: #### A PTT, GFR, PRO, BMP, TROPHS #### [address] [address] Sodium [Moles/Vol] 145 mmol/L Normal 136-145 [facility] ([place] Comment on above: Performed By: #### A PTT, GFR, PRO, BMP, TROPHS #### [place] [address] Urea nitrogen [Mass/Vol] 9.0 mg/dL Normal 8.0-22.0 [facility] ([place]) Comment on above: Performed By: #### A PTT, GFR, PRO, BMP, TROPHS #### [address] [address] CBCon 03-10-2022 Erythrocyte distribution width (RBC) [Ratio] 11.9 % Normal 11.5-15.5 [facility] ([place] Comment on above: Performed By: #### A PTT, GFR, PRO, BMP, TROPHS #### [address] [address] Hematocrit (Bld) [Volume fraction] 46.2 % Normal 40.0-52.0 [facility] ([place] Comment on above: Performed By: #### A PTT, GFR, PRO, BMP, TROPHS #### [address] [address] Hgb 16.4 G/dL Normal 13.0-17.5 [facility] ([place] Comment on above: Performed By: #### A PTT, GFR, PRO, BMP, TROPHS #### [address] [address] MCH (RBC) [Entitic mass] 33.7 pg High 27.0-33.0 [facility] ([place]) Comment on above: Performed By: #### A PTT, GFR, PRO, BMP, TROPHS #### [place] [address] MCHC 35.6 G/dL Normal 32.0-36.0 [facility] ([place] Comment on above: Performed By: #### A PTT, GFR, PRO, BMP, TROPHS #### [place] [address] MCV (RBC) [Entitic vol] 94.8 fL Normal 81.0-100.0 [facility] ([place] Comment on above: Performed By: #### A PTT, GFR, PRO, BMP, TROPHS #### [place] [address] Platelet 359 10 3/mcL Normal 150-450 [facility] ([place] Comment on above: Performed By: #### A PTT, GFR, PRO, BMP, TROPHS #### [place] [address] Platelet mean volume (Bld) [Entitic vol] 7.2 fL Normal 6.4-10.5 [facility] ([place] Comment on above: Performed By: #### A PTT, GFR, PRO, BMP, TROPHS #### [place] [address] RBC 4.87 10 6/mcL Normal 4.50-6.00 [facility] ([place] Comment on above: Performed By: #### A PTT, GFR, PRO, BMP, TROPHS #### [place] [address] WBC 7.7 10 3/mcL Normal 4.5-10.8 [facility] ([place]) Comment on above: Performed By: #### A PTT, GFR, PRO, BMP, TROPHS #### [place] [address] CT ANGIOGRAPHY HEAD W/ CONTR Cb 03-10-2022 CT ANGIOGRAPHY HEAD W/ CONTRAST ORIGINAL EXAMINATION: CTA OF THE HEAD WITH CONTRAST; CTA OF THE NECK 03/10/2022 8:23 pm; 03/10/2022 8:41 pm: TECHNIQUE: CTA of the head/brain was performed with the administration of intravenous contrast. Multiplanar reformatted images are provided for review. MIP images are provided for review. Automated exposure control, iterative reconstruction, and/or weight based adjustment of the mA/kV was utilized to reduce the radiation dose to as low as reasonably achievable.; CTA of the neck was performed with the administration of intravenous contrast. Multiplanar reformatted images are provided for review. MIP images are provided for review. Stenosis of the internal carotid arteries measured using NASCET criteria. Automated exposure control, iterative reconstruction, and/or weight based adjustment of the mA/kV was utilized to reduce the radiation dose to as low as reasonably achievable. COMPARISON: None. HISTORY: ORDERING SYSTEM PROVIDED HISTORY: Reason for Exam: STROKE, CHANGE IN MENTAL STATUS, WEAKNESS, APHASIA, RT SIDED WEAKNESS stroke; ORDERING SYSTEM PROVIDED HISTORY: Reason for Exam: STROKE, CHANGE IN MENTAL STATUS, WEAKNESS, APHASIA, RT SIDED WEAKNESS Stroke, emergency patient FINDINGS: Venous contamination obscures some details. CTA NECK: AORTIC ARCH/ARCH VESSELS: No dissection or arterial injury. No significant stenosis of the brachiocephalic or subclavian arteries. CAROTID ARTERIES: Approximately 55% left and 20% right ICA stenosis secondary to mixed plaque. No dissection or arterial injury. Retropharyngeal course of the right ICA and left ECA. VERTEBRAL ARTERIES: Left dominant. No dissection, arterial injury, or significant stenosis. SOFT TISSUES: No focal consolidation in the imaged lungs. BONES: No acute osseous abnormality. CTA HEAD: ANTERIOR CIRCULATION: The right post communicating A2 segment is occluded. Carotid siphon calcifications result in at most mild ICA stenosis bilaterally. Otherwise no significant stenosis of the intracranial internal carotid, left anterior cerebral, or either middle cerebral arteries. No aneurysm. There is an ACOM. POSTERIOR CIRCULATION: Mild to moderate left post communicating P2 segment stenosis. No significant stenosis of the vertebral, basilar, or right posterior cerebral arteries. No aneurysm. The origins of the PICA-AICA complex and SCAs appear normal. A robust right PCOM is associated with a hypoplastic right P1 segment. The left PCOM is small. OTHER: No dural venous sinus thrombosis on this non-dedicated study. BRAIN: No mass effect or midline shift. No extra-axial fluid collection. The castaneda-white differentiation is maintained. IMPRESSION: Right A2 segment occlusion. Mild to moderate left post communicating P2 aspirate No acute arterial abnormality of the neck. Approximately 55% left and 20% right ICA stenosis. Findings were discussed with Dr. SHERIF ARGUELLO at 8:56 pm on 03/10/2022. Interpreted by: Ezequiel Aponte Preliminary Report By: Ezequiel Aponte Electronically signed By Ezequiel Aponte Dictated Date: 03/10/2022 8:47:00 PM Prelim Date: 03/10/2022 9:00:17 PM Sign Date: 03/10/2022 9:00:17 PM Ordering Provider: SHERIF ARGUELLO Replaced By [facility] [place] ANGIOGRAPHY NECK W/CONTRA STon 03-10-2022 CT ANGIOGRAPHY NECK W/CONTRAST ORIGINAL EXAMINATION: CTA OF THE HEAD WITH CONTRAST; CTA OF THE NECK 03/10/2022 8:23 pm; 03/10/2022 8:41 pm: TECHNIQUE: CTA of the head/brain was performed with the administration of intravenous contrast. Multiplanar reformatted images are provided for review. MIP images are provided for review. Automated exposure control, iterative reconstruction, and/or weight based adjustment of the mA/kV was utilized to reduce the radiation dose to as low as reasonably achievable.; CTA of the neck was performed with the administration of intravenous contrast. Multiplanar reformatted images are provided for review. MIP images are provided for review. Stenosis of the internal carotid arteries measured using NASCET criteria. Automated exposure control, iterative reconstruction, and/or weight based adjustment of the mA/kV was utilized to reduce the radiation dose to as low as reasonably achievable. COMPARISON: None. HISTORY: ORDERING SYSTEM PROVIDED HISTORY: Reason for Exam: STROKE, CHANGE IN MENTAL STATUS, WEAKNESS, APHASIA, RT SIDED WEAKNESS stroke; ORDERING SYSTEM PROVIDED HISTORY: Reason for Exam: STROKE, CHANGE IN MENTAL STATUS, WEAKNESS, APHASIA, RT SIDED WEAKNESS Stroke, emergency patient FINDINGS: Venous contamination obscures some details. CTA NECK: AORTIC ARCH/ARCH VESSELS: No dissection or arterial injury. No significant stenosis of the brachiocephalic or subclavian arteries. CAROTID ARTERIES: Approximately 55% left and 20% right ICA stenosis secondary to mixed plaque. No dissection or arterial injury. Retropharyngeal course of the right ICA and left ECA. VERTEBRAL ARTERIES: Left dominant. No dissection, arterial injury, or significant stenosis. SOFT TISSUES: No focal consolidation in the imaged lungs. BONES: No acute osseous abnormality. CTA HEAD: ANTERIOR CIRCULATION: The right post communicating A2 segment is occluded. Carotid siphon calcifications result in at most mild ICA stenosis bilaterally. Otherwise no significant stenosis of the intracranial internal carotid, left anterior cerebral, or either middle cerebral arteries. No aneurysm. There is an ACOM. POSTERIOR CIRCULATION: Mild to moderate left post communicating P2 segment stenosis. No significant stenosis of the vertebral, basilar, or right posterior cerebral arteries. No aneurysm. The origins of the PICA-AICA complex and SCAs appear normal. A robust right PCOM is associated with a hypoplastic right P1 segment. The left PCOM is small. OTHER: No dural venous sinus thrombosis on this non-dedicated study. BRAIN: No mass effect or midline shift. No extra-axial fluid collection. The castaneda-white differentiation is maintained. IMPRESSION: Right A2 segment occlusion. Mild to moderate left post communicating P2 aspirate No acute arterial abnormality of the neck. Approximately 55% left and 20% right ICA stenosis. Findings were discussed with Dr. SHERIF ARGUELLO at 8:56 pm on 03/10/2022. Interpreted by: Ezequiel Aponte Preliminary Report By: Ezequiel Aponte Electronically signed By Ezequiel Aponte Dictated Date: 03/10/2022 8:47:00 PM Prelim Date: 03/10/2022 9:00:17 PM Sign Date: 03/10/2022 9:00:17 PM Ordering Provider: SHERIF ARGUELLO Replaced By [facility] [place] HEAD OR BRAIN W/O CONTRAS Ton 03-10-2022 CT HEAD OR BRAIN W/O CONTRAST ORIGINAL EXAMINATION: CT OF THE HEAD WITHOUT CONTRAST 03/10/2022 8:15 pm TECHNIQUE: CT of the head was performed without the administration of intravenous contrast. Automated exposure control, iterative reconstruction, and/or weight based adjustment of the mA/kV was utilized to reduce the radiation dose to as low as reasonably achievable. COMPARISON: None. HISTORY: ORDERING SYSTEM PROVIDED HISTORY: Reason for Exam: CHANGE IN MENTAL STATUS, WEAKNESS, APHASIA, RT SIDED WEAKNESS change in mental status/weakness/aphas ia FINDINGS: Motion artifacts obscure some details, and the patient was reimaged. BRAIN/VENTRICLES: No evidence of acute intracranial hemorrhage, mass effect, midline shift, hydrocephalus, or acute large territorial infarction is identified. Patchy white matter hypodensities are nonspecific but statistically most consistent with moderate chronic microvascular angiopathy. The ventricles are mildly enlarged with commensurate enlargement of the sulci most consistent with mild age-related volume loss. Carotid siphon calcifications are present. ORBITS: The visualized portion of the orbits demonstrate no acute abnormality. SINUSES: Right maxillary sinus retention cyst. Remaining imaged paranasal sinuses and mastoid air cells are clear. SOFT TISSUES/SKULL: No acute abnormality of the visualized skull or soft tissues. IMPRESSION: No acute intracranial abnormality. Chronic microvascular angiopathy and volume loss. Interpreted by: Ezequiel Aponte Preliminary Report By: Ezequiel Aponte Electronically signed By Ezequiel Aponte Dictated Date: 03/10/2022 8:44:42 PM Prelim Date: 03/10/2022 8:46:52 PM Sign Date: 03/10/2022 8:46:52 PM Ordering Provider: SHERIF Crow [facility] ([place]) LABORATORYOrdered By: Cristina Fitch on 03-10-2022 aPTT Coag (PPP) [Time] 31.3 s Invalid Interpretation Code 25.0 - 35.0 seconds Auto Coag SS Heparin dose (APTT) None Invalid Interpretation Code Auto Coag SS INR Coag (PPP) [Relative time] 1.0 {INR} Invalid Interpretation Code AH Auto Coag SS PT Coag (PPP) [Time] 12.1 s Invalid Interpretation Code 9.0 - 14.9 seconds Auto Coag SS LABORATORYOrdered By: SYSTEM SYSTEM on 03-10-2022 Troponin I.cardiac DL <= 0.01 ng/mL [Mass/Vol] 12.56 ng/L Invalid Interpretation Code 0.00 - 54.00 ng/L ADM LABORATORYOrdered By: Sonia Naylor on 03-10-2022 Glucose [Mass/Vol] 107 mg/dL Invalid Interpretation Code 82 - 115 mg/dL [facility] PROon 03-10-2022 INR Coag (PPP) [Relative time] 1.0 {INR} Normal [facility] ([place]) Comment on above: Result Comment: The [employer] (CHEST, 1992, 102:312S-25S) recommended therapeutic range for oral anticoagulant therapy is: LOW RISK: Prophylaxis of venous thrombosis INR: 2.0-3.0 Treatment of pulmonary embolism 2.0-3.0 Prevention of systemic embolism 2.0-3.0 HIGH RISK: Mechanical prosthetic valves 2.5-3.5 Performed By: #### A PTT, GFR, PRO, BMP, TROPHS #### [address] [address] PT Coag (PPP) [Time] 12.1 s Normal 9.0-14.9 [facility] ([place]) Comment on above: Result Comment: Effe ctive 03/06/08, Protime results may be affected by some antibiotics (i.e. Ciprofloxacin, Azithromycin, Bactrim) which may potentiate the action of oral anticoagulants, with further increases in Protime/INR. Performed By: #### A PTT, GFR, PRO, BMP, TROPHS #### [address] [address] TROPHSon 03-10-2022 Troponin I High Sensitivity 12.56 ng/L Normal 0.00-54.00 [facility] ([place]) Comment on above: Result Comment: If t he High Sensitive Troponin result is below the 99th percentile value (<45 ng/L) at the first blood draw, at least two additional blood samples should be drawn before results are interpreted as negative for AMI. Performed By: #### A PTT, GFR, PRO, BMP, TROPHS #### [address] [address] XR CHEST 1 VIEWon 03-10-2022 XR CHEST 1 VIEW ORIGINAL EXAMINATION: ONE XRAY VIEW OF THE CHEST 03/10/2022 7:18 pm COMPARISON: None. HISTORY: ORDERING SYSTEM PROVIDED HISTORY: Reason for Exam: Chest pain/shortness of breath FINDINGS: Mediastinal contours are accentuated secondary to patient rotation and portable technique. No focal consolidation. No visible pneumothorax or pleural effusion. Chronic appearing deformities of the left ribs. IMPRESSION: No acute cardiopulmonary findings. Interpreted by: Semaj Aponte Preliminary Report By: Semaj Aponte Electronically signed By Semaj Aponte Dictated Date: 03/10/2022 7:34:57 PM Prelim Date: 03/10/2022 7:37:15 PM Sign Date: 03/10/2022 7:37:15 PM Ordering Provider: SHERIF Crow [facility] ([place]) Vital Signs Date Time Vital Sign Value Performing Clinician Naty gaston 03-30-2022 17:53-0400 Reason For Taking VItal Signs RANDOLPH DHILLON MD [address] [place] [address] 03-30-2022 15:44-0400 Reason For Taking VItal Signs RANDOLPH DHILLON MD [address] [place] [address] 03-30-2022 14:37-0400 Body temperature 98.24 [degF] RANDOLPH DHILLON MD [address] [place] [address] 03-30-2022 14:37-0400 Diastolic blood pressure 67 mm[Hg] RANDOLPH DHILLON MD [address] [place] [address] 03-30-2022 14:37-0400 Heart rate 92 /min RANDOLPH DHILLON MD [address] [place] [address] 03-30-2022 14:37-0400 Mean blood pressure 90 mm[Hg] RANDOLPH DHILLON MD [address] [place] [address] 03-30-2022 14:37-0400 Reason For Taking VItal Signs RANDOLPH DHILLON MD [address] [place] [address] 03-30-2022 14:37-0400 Respiratory rate 18 /min RANDOLPH DHILLON MD [address] [place] [address] 03-30-2022 14:37-0400 Systolic blood pressure 137 mm[Hg] RANDOLPH DHILLON MD [address] [place] [address] 03-30-2022 11:54-0400 Body temperature 98.78 [degF] RANDOLPH DHILLON MD [address] [place] [address] 03-30-2022 11:54-0400 Diastolic blood pressure 70 mm[Hg] RANDOLPH DHILLON MD [address] [place] [address] 03-30-2022 11:54-0400 Heart rate 91 /min RANDOLPH DHILLON MD [address] [place] [address] 03-30-2022 11:54-0400 Mean blood pressure 91 mm[Hg] RANDOLPH DHILLON MD [address] [place] [address] 03-30-2022 11:54-0400 Respiratory rate 18 /min RANDOLPH DHILLON MD [address] [place] [address] 03-30-2022 11:54-0400 Systolic blood pressure 134 mm[Hg] RANDOLPH DHILLON MD [address] [place] [address] 03-30-2022 07:23-0400 Body temperature 98.42 [degF] RANDOLPH DHILLON MD [address] [place] [address] 03-30-2022 07:23-0400 Diastolic blood pressure 70 mm[Hg] RANDOLPH DHILLON MD [address] [place] [address] 03-30-2022 07:23-0400 Heart rate 91 /min RANDOLPH DHILLON MD [address] [place] [address] 03-30-2022 07:23-0400 Mean blood pressure 98 mm[Hg] RANDOLPH DHILLON MD [address] [place] [address] 03-30-2022 07:23-0400 Respiratory rate 18 /min RANDOLPH DHILLON MD [address] [place] [address] 03-30-2022 07:23-0400 Systolic blood pressure 154 mm[Hg] RANDOLPH DHILLON MD [address] [place] [address] 03-29-2022 11:23-0400 Heart rate 89 /min RANDOLPH DHILLON MD [address] [place] [address] 03-27-2022 21:14-0400 Body height 177.8 cm RANDOLPH DHILLON MD [address] [place] [address] 03-27-2022 21:14-0400 Body weight 84.5 kg RANDOLPH DHILLON MD [address] [place] [address] 03-27-2022 21:14-0400 Body weight 26.73 kg/m2 RANDOLPH DHILLON MD [address] [place] [address] 03-27-2022 20:40-0400 Heart rate 93 /min RANDOLPH DHILLON MD [address] [place] [address] 03-27-2022 19:49-0400 Heart rate 94 /min RANDOLPH DHILLON MD [facility] 03-27-2022 16:58-0400 Heart rate 95 /min RANDOLPH DHILLON MD [facility] 03-27-2022 11:11-0400 Diastolic blood pressure 88 mm[Hg] LEVON LAMBERTATZLE DO [facility] [place] 03-27-2022 11:11-0400 Heart rate 120 /min LEVON LAMBERTATZLE DO [facility] 03-27-2022 11:11-0400 Reason For Taking VItal Signs LEVON FAUSTOATZLE DO [facility] 03-27-2022 11:11-0400 Respiratory rate 32 /min LEVON SCHEATZLE DO [facility] [place] 03-27-2022 11:11-0400 Systolic blood pressure 212 mm[Hg] LEVON SCHEATZLE DO [facility] 03-27-2022 08:04-0400 Body temperature 99.32 [degF] LEVON SCHEATZLE DO [facility] 03-27-2022 08:04-0400 Diastolic blood pressure 62 mm[Hg] LEVON SCHEATZLE DO [facility] 03-27-2022 08:04-0400 Heart rate 88 /min LEVON LAMBERTATZLE DO [facility] 03-27-2022 08:04-0400 Mean blood pressure 87 mm[Hg] LEVON SCHEATZLE DO [facility] 03-27-2022 08:04-0400 Reason For Taking VItal Signs LEVON FAUSTOATZLE DO [facility] 03-27-2022 08:04-0400 Respiratory rate 18 /min LEVON LAMBERTATZLE DO [facility] 03-27-2022 08:04-0400 Systolic blood pressure 136 mm[Hg] LEVON LAMBERTATZLE DO [facility] [place] 03-27-2022 00:42-0400 Body temperature 97.88 [degF] LEVON LAMBETRATZLE DO [facility] [place] 03-27-2022 00:42-0400 Diastolic blood pressure 80 mm[Hg] LEVON LAMBERTATZLE DO [facility] 03-27-2022 00:42-0400 Heart rate 106 /min LEVON LAMBERTATZLE DO [facility] 03-27-2022 00:42-0400 Respiratory rate 18 /min LEVON LAMBERTATZLE DO [facility] 03-27-2022 00:42-0400 Systolic blood pressure 144 mm[Hg] LEVON LAMBERTATZLE DO [facility] 03-26-2022 20:00-0400 Heart rate 105 /min LEVON LAMBERTATZLE DO [facility] 03-26-2022 18:02-0400 Body temperature 98.06 [degF] LEVON LAMBERTATZLE DO [facility] 03-26-2022 18:02-0400 Mean blood pressure 119 mm[Hg] LEVON LAMBERTATZLE DO [facility] 03-26-2022 18:02-0400 Reason For Taking VItal Signs LEVON LAMBERTATZLE DO [facility] 03-26-2022 15:25-0400 Body temperature 98.6 [degF] LVEON FAUSTOATZLE DO [facility] 03-26-2022 15:25-0400 Heart rate 102 /min LEVON LAMBERTATZLE DO [facility] 03-26-2022 08:55-0400 Body temperature 98.24 [degF] LEVON LAMBERTATZLE DO [facility] 03-26-2022 08:55-0400 Heart rate 100 /min LEVON LAMBERTATZLE DO [facility] 03-26-2022 08:55-0400 Mean blood pressure 101 mm[Hg] LEVON LAMBERTATZLE DO [facility] 03-25-2022 16:22-0400 Body temperature 97.88 [degF] LEVON LAMBERTATZLE DO [facility] 03-15-2022 17:53-0400 Body height 177 cm LEVON LAMBERTATZLE DO [facility] 03-15-2022 17:53-0400 Body weight 80.9 kg LEVON LAMBERTATZLE DO [facility] 03-15-2022 17:53-0400 Body weight 25.82 kg/m2 LEVON LAMBERTATZLE DO [facility] 03-15-2022 14:33-0400 Body temperature 97.7 [degF] TRINA BARRERA AM, MD [facility] 03-15-2022 14:33-0400 Diastolic blood pressure 64 mm[Hg] TRINA QUINTANILLA MD [facility] 03-15-2022 14:33-0400 Heart rate 98 /min TRINA BARRERA AM, MD [facility] 03-15-2022 14:33-0400 Respiratory rate 18 /min TRINA BARRERA AM, MD [facility] 03-15-2022 14:33-0400 Systolic blood pressure 169 mm[Hg] TRINA QUINTANILLA MD [facility] 03-15-2022 11:36-0400 Body temperature 97.52 [degF] TRINA BARRERA AM, MD [facility] 03-15-2022 11:36-0400 Diastolic blood pressure 82 mm[Hg] TRINA QUINTANILLA MD [facility] 03-15-2022 11:36-0400 Heart rate 82 /min TRINA BARRERA AM, MD [facility] 03-15-2022 11:36-0400 Mean blood pressure 106 mm[Hg] TRINA BARRERA AM, MD [facility] 03-15-2022 11:36-0400 Reason For Taking VItal Signs TRINA QUINTANILLA MD [facility] 03-15-2022 11:36-0400 Respiratory rate 18 /min TRINA BARRERA AM, MD [facility] 03-15-2022 11:36-0400 Systolic blood pressure 154 mm[Hg] TRINA QUINTANILLA MD [facility] 03-15-2022 07:20-0400 Body temperature 97.7 [degF] TRINA BARRERA AM, MD [facility] 03-15-2022 07:20-0400 Diastolic blood pressure 83 mm[Hg] TRINA QUINTANILLA MD [facility] 03-15-2022 07:20-0400 Heart rate 79 /min TRINA BARRERA AM, MD [facility] 03-15-2022 07:20-0400 Mean blood pressure 111 mm[Hg] TRINA BARRERA AM, MD [facility] 03-15-2022 07:20-0400 Reason For Taking VItal Signs TRINA QUINTANILLA MD [facility] 03-15-2022 07:20-0400 Respiratory rate 16 /min TRINA BARRERA AM, MD [facility] 03-15-2022 07:20-0400 Systolic blood pressure 166 mm[Hg] TRINA QUINTANILLA MD [facility] 03-15-2022 04:41-0400 Heart rate 90 /min TRINA BARRERA AM, MD [facility] 03-15-2022 04:41-0400 Mean blood pressure 107 mm[Hg] TRINA BARRERA AM, MD [facility] 03-15-2022 04:41-0400 Reason For Taking VItal Signs TRINA QUINTANILLA MD [facility] 03-14-2022 15:46-0400 Body height 172.7 cm TRINA BARRERA AM, MD [facility] 03-14-2022 15:46-0400 Body weight 84.5 kg TRINA TISSMYRIAM SARKAR MD [facility] 03-14-2022 15:46-0400 Body weight 28.33 kg/m2 TRINA BARRERA AM, MD [facility] 03-14-2022 15:24-0400 Heart rate 83 /min TRINA BARRERA AM, MD [facility] 03-14-2022 10:34-0400 Heart rate 95 /min TRINA SYLVESTERAVIRCOLIN SARKAR MD [facility] 03-11-2022 10:04-0400 Body height 172.7 cm TRINA BARRERA AM, MD [facility] 03-11-2022 10:04-0400 Body weight 84.5 kg TRINA BARRERA AM, MD [facility] 03-11-2022 10:04-0400 Body weight 28.33 kg/m2 TRINA BARRERA AM, MD [facility] 03-10-2022 18:35-0400 Body weight 84.5 kg TRINA BARRERA AM, MD [facility] Encounters Encounter Date Encounter Type Care Provider Facility Start: 01-29-2025 End: 01-29-2025 Patient encounter procedure Rosalia Adams NP-C -[facility] Work Phone: Start: 01-29-2025 End: 01-29-[address] Levon Duke MD Work Phone: [facility] Work Phone: Start: 01-01-2025 End: 01-01-2025 Patient encounter procedure Rosalia Adams NP-C -[facility] Work Phone: Start: 01-01-2025 End: 01-01-2025 ambulatory Rosalia Adams Facility:[facility] Start: 12-02-2024 End: 12-02-[address] Levon Duke MD Work Phone: [facility] Work Phone: Start: 12-02-2024 End: 12-02-2024 Patient encounter procedure Geetha Lara NP-C -Laboratory[facility] Work Phone: Start: 12-02-2024 End: 12-02-2024 ambulatory Geetha Lara Facility:[facility] Start: 07-06-2024 ambulatory Geetha Morrow Fa cility:[facility] Start: 07-02-2024 ambulatory Epi Tirado Fac ility:[facility] Start: 07-02-2024 End: 07-07-2024 Evaluation and management of inpatient Tom Escobedo Facility:[facility] Start: 02-18-2024 End: 02-18-2024 ambulatory Levon Duke Facility:[facility] Start: 08-31-2023 End: 09-01-2023 ambulatory GEETHA LARA Facility:[facility] Start: 03-27-2022 End: 03-30-2022 Observation RANDOLPH DHILLON MD [facility] Start: 03-15-2022 End: 03-27-2022 Evaluation and management of inpatient [facility] Start: 03-10-2022 End: 03-15-2022 Evaluation and management of inpatient TRINA QUINTANILLA MD [facility] Procedures Date Procedure Procedure Detail Performing Clinician Start: 12-01-[address] Levon Duke MD Work Phone: Start: 12-01-[address] [address] Levon Duke MD Work Phone: Start: 12-01-2024 Ova&parasites direct smears concentration & id Dr. Levon Duke MD Work Phone: Lithotripsy TRINA CHUA MD Plan of Treatment Date Care Activity Detail Author C reactive protein [ Mass/volume] in Serum or Plasma [facility] Elastase.pancreatic [Presence] in Stool [facility] Hepatic function panel [facility] Protein measurement [facility] Triacylglycerol lipase measurement [facility] Payers Date Payer Category Payer Medicaid [id number] 2024 Self-pay 2024 Unknown 2023 Medicaid [id number] Unknown [id number] 2.16.8 [id number] Unknown [id number] 2.16.8 [id number] Unknown [id number] 2.16.8 [id number] Unknown [id number] 2.16.8 [id number] Unknown [id number] 2.16.8 [id number] Unknown [id number] 2.16.8 [id number] Unknown [id number] 2.16.8 [id number] Unknown [id number] 2.16.8 [id number] Unknown [id number] 2.16.8 [id number] Unknown [id number] 2.16.8 [id number] Unknown [id number] 2.16.8 [id number] Unknown [id number] 2.16.8 [id number] Social History Date Type Detail Facility Start: 03-01-2022 Tobacco smoking status Never s moked tobacco (finding) [facility] Sex Assigned At Sex [facility] Start: 07-02-2024 End: 01-29-2025 Tobacco smoking status NHIS Ex-smoker (finding) [facility] Start: 12-06-2024 Sex Male (finding) [facility] Start: 1950 Sex Assigned At Male [facility] Functional Status Date Assessment Result Facility 03-30-2022 Functional Status Room check performed [facility] 03-30-2022 Functional Status [facility] 03-30-2022 Functional Status [facility] 03-30-2022 Functional Status Mod A 1 [facility] 03-30-2022 Functional Status Done [facility] 03-29-2022 Functional Status [facility] 03-28-2022 Functional Status Activity Assistance One assist [facility] 03-28-2022 Functional Status son Claudio - singh pport system no POA per pt report but brother Gavin is listed [facility] 03-27-2022 Functional Status Room check performed [facility] 03-27-2022 [facility] 03-26-2022 Functional Status heel(s)s elevated [facility] [place] 03-26-2022 Functional Status Antiembolism S tocking On/Re-applied bilateral knee high [facility] 03-25-2022 Functional Status Antiembolism S tocking Off/Removed bilateral knee high [facility] 03-25-2022 Functional Status Gait belt, Bilateral handrails [facility] 03-25-2022 Functional Status Demonstrates Correct Ca ll Light Use Yes [facility] 03-24-[address] [facility] 03-24-[address] [facility] 03-24-[address] [facility] 03-23-[address] [facility] 03-23-2022 Functional Status Lunch Percent 100 [facility] [place] 03-23-2022 Functional Status [address] [facility] 03-22-[address] [facility] 03-20-[address] [facility] 03-19-[address] [facility] 03-18-2022 Functional Status Dinner Percent 100 [facility] 03-18-2022 Functional Status Activity Statu s ADL Awake, Up to chair, Watching TV [facility] 03-18-2022 Functional Status Independent [facility] 03-17-2022 Functional Status Single level h ome, 1st floor bedroom, 1st floor bathroom, basement laundry [facility] 03-17-[address] [facility] 03-16-2022 Functional Status son Claudio - singh pport system no POA per pt report but brother Gavin is listed [facility] 03-16-[address] [facility] 03-15-[address] [facility] 03-15-2022 Functional Status Sensory Deficits None A [facility] [place] 03-15-2022 Functional Status Room check performed [facility] 03-15-2022 [facility] 03-15-2022 Functional Status [facility] 03-14-2022 Functional Status [facility] 03-13-2022 Functional Status Lunch Percent 95 [facility] 03-12-2022 Functional Status [facility] 03-12-2022 Functional Status Min A 10, 11 [facility] Functional Status NPO Status Maintained A [facility] 03-11-2022 [facility] Status Date Assessment Result Facility 03-30-2022 Mental Status Orientation Oriented x 4 [facility] 03-30-2022 Mental Status [facility] 03-30-2022 [facility] 03-28-2022 [facility] 03-27-2022 Mental Status Oriented x 4 [facility] 03-26-2022 Mental Status [facility] 03-15-2022 Mental Status Orientation Oriented x 4 [facility] 03-15-2022 [facility] Status [facility] 03-15-2022 [facility] Status [facility] 03-14-2022 Mental Status Oriented x 4 [facility] Clinical Notes 03-10-2022 to 01-01-2025 Note Date & Type Note Facility 01-01-2025 Evaluation note Diagnosis Onset Date Resolution Diarrhea acute January 01, 2025 9:46am [facility] Work Phone: [phone] 888-627111-15-2024 [facility] Medical Records Department [address] [place] [id number] Discharge Summary 07/07/24 1340 MR#: [id number] Acct: [id number] Name: MONICA SPAIN Rep #: [id number] : 1950 73 From: Epi Tirado MD PCP: Dr. Levon Duke MD Status:DIS IN Location: [place] [address] Providers Date of Admission: 07/02/24 Primary Care Physician: Dr. Levon Duke MD Reason For Visit: ACUTE INFLUENZA A AND RESPIRATORY INSUFFICIENCY Diagnosis Discharge Diagnosis (1) Influenza: Status: Acute Code(s): J11.1 - Influenza due to unidentified influenza virus with other respiratory manifestations (2) Respiratory insufficiency: Status: Acute Code(s): R06.89 - Other abnormalities of breathing Medications at Discharge Home Medications albuterol sulfate 2.5 mg/3 mL (0.083 %) solution for nebulization 2.5 mg inhalation TID PRN shortness of breath or wheezing 07/02/24 amlodipine 5 mg tablet 5 mg PO BID 07/02/24 aspirin 81 mg capsule 81 mg PO DAILY 07/02/24 atorvastatin 80 mg tablet 80 mg PO QHS 07/02/24 baclofen 10 mg tablet 10 mg PO BID 07/02/24 baclofen 5 mg tablet 5 mg PO DAILY 07/02/24 furosemide 40 mg tablet (Lasix) 40 mg PO DAILY 07/02/24 ipratropium 20 mcg-albuterol 100 mcg/actuation mist for inhalation (Combivent Respimat) 1 puff inhalation Q4H PRN shortness of breath or wheezing 07/02/24 losartan 100 mg tablet 100 mg PO DAILY 07/02/24 metoprolol succinate 25 mg tablet,extended release 24 hr 25 mg PO QHS 07/02/24 potassium chloride 20 mEq tablet,extended release 40 meq PO DAILY 07/02/24 prednisone 20 mg tablet 40 mg PO DAILY 07/02/24 psyllium 1 packet PO DAILY 07/02/24 thiamine HCl (vitamin B1) 100 mg tablet 100 mg PO DAILY 07/02/24 trazodone 50 mg tablet 25 mg PO QHS 07/02/24 venlafaxine 37.5 mg capsule,extended release 24 hr (Effexor XR) 37.5 mg PO DAILY 07/02/24 venlafaxine 75 mg capsule,extended release 24 hr (Effexor XR) 75 mg PO DAILY 07/02/24 polyethylene glycol 3350 17 gram/dose oral powder (Miralax) 17 g PO DAILY #119 grams 07/07/24 Hospital Course Operations None Procedures 2-D Echocardiogram Summary of Care Provided Minutes Spent on Discharge: 35 Hospital Course: Per HPI: MONICA SPAIN, is a 73 M with a past medical history of essential hypertension; on Lasix, Losartan, Metoprolol and Amlodipine, hyperlipidemia, overweight; with BMI of 28.7 this admission, former tobacco abuse, depression with anxiety; on Venlafaxine and Trazodone, OA; with chronic pain and history of CVA; with residual Right-sided weakness and mobilizing in a wheelchair currently residing at [facility] who presents to [facility] ER complaining of generalized weakness and malaise. Mr. Spain reports his symptoms began approximately 4-5 days prior to admission with the gradual-onset of progressively worsening cough with generalized weakness and malaise with fatigue and increasing body aches with patient recently started on oral Azithromycin and Prednisone for suspected bronchitis. He then developed a nonproductive cough with a low-grade fever of 99.7 degrees Fahrenheit with the staff at his [facility] noting hypoxia in the 85% range on RA so he was sent in to the ER for further evaluation and treatment. He also admits having rigors and sweats with more back pain and leg pain than normal. He denies associated nausea, vomiting, diarrhea, constipation, chest pain, palpitations, heart racing, headache, new focal neurologic deficits or needing supplemental oxygen recently. In the ER his viral PCR assay returned positive for Influenza A complicated by clinical evidence of Acute Respiratory Insufficiency and laboratory evidence of Dehydration; with elevated BUN/creatinine ratio of 23.7 present on admission compounded by Generalized Weakness with Fatigue and Malaise in the setting of known prior CVA; with residual Right-sided weakness and OA with Chronic Pain exacerbated by acute viral illness and he was then admitted to the general medical floor with telemetric monitoring under droplet precautions for ongoing care for a stay that is expected to extend beyond 48 hours. Hospital Course: 1. Acute respiratory insufficiency secondary influenza A in the setting of COPD???73-year-old male presented to the hospital with increasing shortness of breath and oxygen requirements. He was diagnosed with influenza A and was started on Tamiflu he was unfortunately given some fluid which led to a little bit of fluid overload and pulmonary edema. He had to have his oxygen increased to Airvo at 1 point though never really demonstrated significant respiratory distress. He was started on IV Lasix and had significant improvement in his respiratory status on the day of discharge was maintaining his oxygen sats on room air to 93%. He did complete a 5-day course of Tamiflu and can resume his home steroids he [facility] (more content not included)...[facility]01-09-2024 NoteHNO ID: [id number] Author: CALEB ACKERMAN PA-C Service: ? Author Type: Physician [place] Diver Net Type: Progress Notes Filed: 08/31/2023 18:26 Note Text: [facility] NEW PATIENT CLINIC NOTE SERVICE DATE: 08/31/2023 SERVICE TIME: 6:17 PM NAME: Monica Spain CHIEF COMPLAINT: Incontinence and Hidden Penis HISTORY OF PRESENT ILLNESS: Monica Spain is a 73 year old male presenting as an New Patient for Incontinence and Hidden Penis The patient reports he is having trouble with urination given hidden penis and with incontinence His skin get very irritated and recommend use of barrier cream such as Zinc Oxide to prevent skin maceration LABS: No results found for: TESTOST No results found for: TESTFREE No results found for: PSA No results found for: HCT No results found for: PSA No results found for: CREAT MEDICATIONS: amLODIPine (NORVASC) 5 mg tablet Take by mouth two times a day. aspirin, enteric coated (ASPIRIN, ENTERIC COATED) 81 mg EC tablet Take 81 mg by mouth once daily. atorvastatin (LIPITOR) 80 mg tablet Take 80 mg by mouth once daily. baclofen 5 mg tablet Take by mouth three times a day. citalopram hydrobromide (CELEXA) 10 mg tablet Take 10 mg by mouth once daily. ipratropium 20 mcg-albuterol 100 mcg (COMBIVENT RESPIMAT) 20-100 mcg/actuation inhaler Inhale 1 Puff as instructed. herbal drugs (FIBER DIET ORAL) Take by mouth. docusate sodium (COLACE) 100 mg capsule Take 100 mg by mouth two times a day as needed for constipation. cephALEXin (KEFLEX) 500 mg capsule Take 500 mg by mouth three times a day. x 10 days for toe infection furosemide (LASIX) 40 mg tablet Take 40 mg by mouth once daily. LOSARTAN POTASSIUM, BULK, MISC METOPROLOL SUCCINATE ORAL Take 25 mg by mouth once daily. guaifenesin/phenylephrine HCl (MUCINEX COLD ORAL) Take by mouth. POTASSIUM CHLORATE, BULK, MISC thiamine (THIAMILATE ORAL) Take 100 mg by mouth. acetaminophen (TYLENOL) 325 mg tablet Take 650 mg by mouth every 4 hours as needed for pain. omega-3s/dha/epa/fish oil/D3 (VITAMIN-D + OMEGA-3 ORAL) Take by mouth. PAST MEDICAL HISTORY: No past medical history on file. PAST SURGICAL HISTORY: No past surgical history on file. FAMILY HISTORY: No family history on file. SOCIAL HISTORY: Social Connections: Not on file REVIEW OF SYSTEMS: GENERAL: No fever, chills, weight loss, or fatigue. ENMT: Negative CARDIOVASCULAR:NO CHEST PAIN, PALPITATIONS, ANKLE EDEMA RESPIRATORY: No chronic cough, wheezing, dyspnea, hemoptysis. GENITOURINARY: SEE HPI MUSCULOSKELETAL:NO CHRONIC BACK PAIN, ARTHRITIS, CHRONIC NECK PAIN SKIN: NO VARICOSE VEINS, RASH, ABNORMAL ITCHING HEME/LYMPH/IMMUNE:Negative for prolonged bleeding, bruising easily or swollen nodes NEUROLOGICAL: NO HEADACHES, NUMBNESS, SEIZURES, STROKE DIABETES: no All other systems reviewed and are negative PHYSICAL EXAMINATION: Blood pressure 160/84. GENERAL: WNL nutrition, no deformities, healthy appearing NEURO: Awake, alert and oriented x 3 and Normal gait PSYCH: No signs of depression, anxiety, or agitation ENMT (Ear, Nose, Mouth, Throat): No masses, adenopathy, icterus. Thyroid nonpalpable RESP: NL effort, no retractions or purse-lip breathing. CV: No extremity swelling, varices, edema, pallor, erythema GASTROINTESTINAL: Soft, nontender, nondistended, no masses. HERNIAS: None SKIN: No rash, lesions No palpable lymphadenopathy MUSCULOSKELETAL: Extremities normal. No deformities, edema, clubbing or skin discoloration. PROBLEM LIST REVIEW: Yes LABS: No results found for this or any previous visit. PROCEDURES: PVR: 56 ml IMAGING: IMPRESSION/PLAN: 73 year old male with 1. 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 Continuous leakage of urine - ICD9: 788.37, ICD10: N39.45 > Discussed hidden penis is a condition that is no amenable to surgery and likely due to increased pubic fat pad > Discussed his inability to control urination and using pads during the night, recommend that he have ointment or Zinc Oxide Applied to the pelvic area in its entirely to repel urine moisture each time his incontinence pad is changed > orders written and sent I spent a total of 30 minutes on the date of the service which included preparing to see the patient, face to face patient care, completing clinical documentation, obtaining and/or reviewing separately obtained history, performing a medically appropriate examination, counseling and educating the patient/family/caregiver, ordering medications, tests, or procedures, and care coordination. VANCE Marshall, MA, PA-[facility]01-09-2024 NoteHNO ID: [id number] Author: SHONNA OVERTON RN Service: ? Author Type: Registered Nurse Type: Progress Notes Filed: 08/31/2023 18:26 Note Text: post void 56 ml, last void approx less than 1 hour ago. Pt unable to give sample at visit today. [facility] Discharge summary Date of Service 03/30/2022 Discharge Diagnosis 1. possible Seizure ([id number] - PNED) Additional Orders: Ordered: BMP,03/31/22 5:01:00 EDT, Next AM Draw (one day only), Blood, Once, Stop date 03/31/22 4:00:00 EDT Ordered: CBC,03/31/22 5:01:00 EDT, Next AM Draw (one day only), Blood, Once, Stop date 03/31/22 4:00:00 EDT Ordered: MG Level,03/31/22 5:01:00 EDT, Next AM Draw (one day only), Blood, Once, Stop date 03/31/22 4:00:00 EDT Hospital Course Patient presented to ED on 03/27/2022 after experiencing a seizure like activity that affected his left foot with gradual encompassing of the entire body. Seizure episode lasted for 10 minutes with no loss of consciousness. PMH is significant for alcohol abuse, HTN, hyperlipidemia, and ischemic stroke three weeks prior to seizure onset, where patient was admitted with MTS for recovery. Patient was given Keppra 1500 mg loading dose followed by maintenance dose of 750 mg BID. Ammonia, CPK, TSH, proBNP, and serial EKG/Troponin were ordered to determine etiology of seizure origin. Patient underwent swallow evaluation to determine appropriate diet during admission. Patient was advised to ambulate as much as possible and nursing staff was instructed to monitor patient movement ability. Patient was restarted on prior statin and aspirin therapy due to s/p ischemic stroke 3 weeks prior. PMY was significant for HTN, so prior losartan medication was restarted for hypertensive control. Patient was started on DVT prophylaxis of SubQ heparin. CXR was obtained which demonstrated no acute cardiopulmonary abnormality. CT Head or Brain w/o contrast was also ordered which showed no significant interval change. EKG was done in the ED which showed sinus tachycardia with borderline left axis deviation. Code status was obtained in the ED by [facility] house staff, determined to be FULL CODE. On 03/28/2022, Dr. Prasad (neurology) consulted on the patient, with recommendation of MRI. Patient was apprehensive to receive an MRI, with the wish to return to the stroke rehabilitation facility to resume rehab. Determination was made to not undergo the MRI. Allergies NKA Consults No qualifying data available. Imaging Results and Diagnostics MRI Brain w/ + w/o Contrast Result Date: March 29, 2022 Verified By: ALESSANDRO PRITCHETT, JOAQUIN Macias CLINICAL STATEMENT: IMPRESSION: Recent area of infarct in the left periventricular white matter. 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 XR Chest 1 View Result Date: March 28, 2022 Verified By: ELONID PRITCHETT, PALOMO Morales CLINICAL STATEMENT: IMPRESSION: No acute process. I have personally reviewed the images of this examination and agree with theresident's findings and interpretation. XR Chest 1 View Result Date: March 27, 2022 Verified By: HELENA DÍAZ MD CLINICAL STATEMENT: IMPRESSION: No acute cardiopulmonary abnormality is seen. CT Head or Brain w/o Contrast Result Date: March 27, 2022 Verified By: ANTOINE YIN MD CLINICAL STATEMENT: IMPRESSION: No significant interval change. Objective Vitals and Measurements T: 36.8 C (Oral) TMIN: 36.3 C (Oral) TMAX: 37.2 C (Oral) HR: 92(Monitored) RR: 18 BP: 137/67 SpO2: 96% Weight Dosing Weight: 84.5 kg (03/27/22) Code Status Code Status - Ordered -- 03/27/22 21:14:00 EDT, Full Code, Constant Order Admission Date 03/27/2022 Discharge Date 03/30/2022 Patient Instructions You admitted to hospital for a probable seizure and started on antiseizure medications Johnnyra. Neurology also spoke to you in the hospital and highly recommended a repeat MRI with contrast going forward. It is okay to obtain MRI outpatient, it is okay to be discharged at this time to return to [place] for your therapy for your previous stroke. Your other medications were were not changed, follow-up with PCP as well as take your medications as prescribed. Medications New Prescription levETIRAcetam (Keppra 750 mg oral tablet)1 tab(s) by mouth two (2) times a day for 30 Days. Refills: 1. Unchanged acetaminophen (Tylenol 325 mg oral tablet)2 tab(s) by mouth every 4 hours as needed Muscle pain. Al hydroxide/Mg hydroxide/simethicone (aluminum hydroxide/magnesium hydroxide/simethicone 400 mg-400 mg-40 mg/5 mL oral suspension)30 Milliliter by mouth every 6 hours as needed indigestion. aspirin (aspirin 81 mg oral delayed release tablet)1 tab(s) by mouth once a day for 30 Days. Refills: 3. atorvastatin (atorvastatin 80 mg oral tablet)1 tab(s) by mouth once a day for 30 Days. Refills: 2. docusate (docusate sodium 100 mg oral capsule)1 cap by mouth two (2) times a day as needed as needed for constipation. glucagon (glucagon 1 mg injection)1 Milligram Intravenous once as needed Hypoglycemia. glycerin (glycerin adult rectal suppository)1 suppository(ies) in the rectum once a day as needed as needed for constipation. hydrocortisone topical (hydrocortisone 2.5% topical cream)1 miky(s) Topical two (2) times a day as needed Itching. losartan (losartan 25 mg oral tablet)1 tab(s) by mouth once a day for 30 Days. Refills: 2. magnesium hydroxide (Milk of Magnesia 8% oral suspension)30 Milliliter by mouth daily at bedtime asneeded as needed for constipation. mirtazapine (mirtazapine 15 mg oral tablet)1 tab(s) by mouth daily at bedtime. nystatin (nystatin 100,000 units/mL oral suspension)5 Milliliter by mouth four (4) times a day. polyethylene glycol 3350 (MiraLax oral powder for reconstitution)17 gram(s) by mouth once a day as needed Constipation. thiamine (thiamine 100 mg oral tablet)1 tab(s) by mouth once a day. Follow Up Follow Up with [facility] When Why: Skilled Where: [phone] Follow Up with PHYSICIAN, NONE When Within 1-2 days Follow Up Appointments No qualifying data available. Follow Up Labs/Studies Discharge Labs No Follow-up Labs Discharge Studies Discharge Outpatient Radiology - Ordered -- MRI BRAIN WITH CONTRAST, Seizure, follow-up within: 2-3 weeks, Results Notify to: OLEG SOTO MD, 03/28/22 11:23:00 EDT Discharge Diet No qualifying data available. Discharge Activity No qualifying data available. Condition on Discharge Fair. Readmission Risk/Palliative Score No qualifying data available. Discharge Disposition residential facility. Digitally Signed by EPI ONEILL MD on 03/30/2022 04:50 PM [id number] Discharge Instructions Thank you for allowing [facility] to assist you with your healthcare needs. The following is importantdischarge information regarding your hospital visit. Your Care Team PHYSICIAN, MAGDA Your Diagnosis possible Seizure What to do next Instructions From Your Doctor You admitted to hospital for a probable seizure and started on antiseizure medications Johnnyra. Neurology also spoke to you in the hospital and highly recommended a repeat MRI with contrast going forward. It is okay to obtain MRI outpatient, it is okay to be discharged at this time to return to [place] for your therapy for your previous stroke. Your other medications were were not changed, follow-up with PCP as well as take your medications as prescribed. Follow Up Appointments Follow Up with [facility] When Why: Skilled Where: [phone] Follow Up with PHYSICIAN, NONE When Within 1-2 days The Following Activity and Diet Have Been Ordered for You Discharge Activity - Ordered -- NO activity restrictions, 03/28/22 11:23:00 EDT Transfer of Care Activity - Ordered -- Activity As Tolerated, 03/28/22 11:24:00 EDT Discharge Diet - Ordered -- No changes were made to your diet during your hospital stay. Please resume your pre hospitalization diet on discharge., 03/28/22 11:23:00 EDT Transfer of Care Diet - Ordered -- Type of Diet: Regular Diet, 03/28/22 11:24:00 EDT The Following Equipment Has Been Ordered for You No qualifying data available. The Following Treatments Have Been Ordered for You Discharge Labs No qualifying data available. Discharge Radiology Discharge Outpatient Radiology - Ordered -- MRI BRAIN WITH CONTRAST, Seizure, follow-up within: 2-3 weeks, Results Notify to: OLEG SOTO MD, 03/28/22 11:23:00 EDT Other Therapies No qualifying data available. Post Acute Orders Transfer of Care Code Status - Ordered -- Full Code, Constant Order Transfer of Care Orders Electronically Signed By - Ordered -- 03/28/22 11:24:00 EDT, RANDOLPH DHILLON MD Transfer of Care Prognosis - Ordered -- Chance, Patient Aware: Yes Transfer of Care Rehab Potential - Ordered -- Rehab potential fair, 03/28/22 11:24:53 EDT Someone Will Contact You Regarding These Home Health Referrals No home referrals have been ordered for you. No one will call you. Allergies NKA Medications Please ask your primary doctor or pharmacist before taking any other medication not listed, including over the counter drugs, herbal medications, vitamins and or supplements as they may interact withyour home medications. What How Much When Instructions Last Dose New levETIRAcetam (Keppra 750 mg oral tablet) 1 tab(s) by mouth Two (2) times a day Duration: 30 Days Refills: 1 Pickup at [id number] Unchanged acetaminophen (Tylenol 325 mg oral tablet) 2 tab(s) by mouth Every 4 hours as needed for Muscle pain Unchanged Al hydroxide/ Mg hydroxide/ simethicone (aluminum hydroxide/ magnesium hydroxide/ simethicone 400 mg-400 mg-40 mg/ 5 mL oral suspension) 30 Milliliter by mouth Every 6 hours as needed for indigestion Unchanged aspirin (aspirin 81 mg oral delayed release tablet) 1 tab(s) by mouth Once a day Duration: 30 Days Unchanged atorvastatin (atorvastatin 80 mg oral tablet) 1 tab(s) by mouth Once a day Duration: 30 Days Unchanged docusate (docusate sodium 100 mg oral capsule) 1 cap by mouth Two (2) times a day as needed for as needed for constipation Unchanged glucagon (glucagon 1 mg injection) 1 Milligram Intravenous Once as needed for Hypoglycemia Unchanged glycerin (glycerin adult rectal suppository) 1 suppository(ies) in the rectum Once a day as needed for as needed for constipation Unchanged hydrocortisone topical (hydrocortisone 2.5% topical cream) 1 miky(s) Topical Two (2) times a day as needed for Itching Unchanged losartan (losartan 25 mg oral tablet) 1 tab(s) by mouth Once a day Duration: 30 Days Unchanged magnesium hydroxide (Milk of Magnesia 8% oral suspension) 30 Milliliter by mouth Daily at bedtime as needed for as needed for constipation Unchanged mirtazapine (mirtazapine 15 mg oral tablet) 1 tab(s) by mouth Daily at bedtime Unchanged nystatin (nystatin 100,000 units/ mL oral suspension) 5 Milliliter by mouth Four (4) times a day Unchanged polyethylene glycol 3350 (MiraLax oral powder for reconstitution) 17 gram(s) by mouth Once a day as needed for Constipation Unchanged thiamine (thiamine 100 mg oral tablet) 1 tab(s) by mouth Once a day Pharmacy Information [id number]: [id number] [place], [place] [id number] [phone] Please take this list to your next doctor s visit. Bring all medications you take, including over the counter medications, herbals and other supplements with you to your doctor s visit. Patients and families are reminded to discard old lists and to update any records with all medication providers or retail pharmacies. Education Materials Seizure, Adult A seizure is a sudden burst of abnormal electrical activity in the brain. Seizures usually last from 30 seconds to 2 minutes. They can cause many different symptoms. Usually, seizures are not harmful unless they last a long time. What are the causes? Common causes of this condition include: Fever or infection. Conditions that affect the brain, such as: ? A brain abnormality that you were born with. ? A brain or head injury. ? Bleeding in the brain. ? A tumor. ? Stroke. ? Brain disorders such as autism or cerebral palsy. Low blood sugar. Conditions that are passed from parent to child (are inherited). Problems with substances, such as: ? Having a reaction to a drug or a medicine. ? Suddenly stopping the use of a substance (withdrawal). In some cases, the cause may not be known. A person who has repeated seizures over time without a clear cause has a condition called epilepsy. What increases the risk? You are more likely to get this condition if you have: A family history of epilepsy. Had a seizure in the past. A brain disorder. A history of head injury, lack of oxygen at , or strokes. What are the signs or symptoms? There are many types of seizures. The symptoms vary depending on the type of seizure you have. Examples of symptoms during a seizure include: Shaking (convulsions). Stiffness in the body. Passing out (losing consciousness). Head nodding. Staring. Not responding to sound or touch. Loss of bladder control and bowel control. Some people have symptoms right before and right after a seizure happens. Symptoms before a seizure may include: Fear. Worry (anxiety). Feeling like you may vomit (nauseous). Feeling like the room is spinning (vertigo). Feeling like you saw or heard something before (sheila her). Odd tastes or smells. Changes in how you see. You may see flashing lights or spots. Symptoms after a seizure happens can include: Confusion. Sleepiness. Headache. Weakness on one side of the body. How is this treated? Most seizures will stop on their own in under 5 minutes. In these cases, no treatment is needed. Seizures that last longer than 5 minutes will usually need treatment. Treatment can include: Medicines given through an IV tube. Avoiding things that are known to cause your seizures. These can include medicines that you take for another condition. Medicines to treat epilepsy. Surgery to stop the seizures. This may be needed if medicines do not help. Follow these instructions at home: Medicines Take jftc-kbj-nwbyvkg and prescription medicines only as told by your doctor. Do not eat or drink anything that may keep your medicine from working, such as alcohol. Activity Do not do any activities that would be dangerous if you had another seizure, like driving or swimming. Wait until your doctor says it is safe for you to do them. If you live in the [place] ask your local DMV (department of [employer]) when you can drive. Get plenty of rest. Teaching others Teach friends and family what to do when you have a seizure. They should: Lay you on the ground. Protect your head and body. Loosen any tight clothing around your neck. Turn you on your side. Not hold you down. Not put anything into your mouth. Know whether or not you need emergency care. Stay with you until you are better. General instructions Contact your doctor each time you have a seizure. Avoid anything that gives you seizures. Keep a seizure diary. Write down: ? What you think caused each seizure. ? What you remember about each seizure. Keep all follow-up visits as told by your doctor. This is important. Contact a doctor if: You have another seizure. You have seizures more often. There is any change in what happens during your seizures. You keep having seizures with treatment. You have symptoms of being sick or having an infection. Get help right away if: You have a seizure that: ? Lasts longer than 5 minutes. ? Is different than seizures you had before. ? Makes it harder to breathe. ? Happens after you hurt your head. You have any of these symptoms after a seizure: ? Not being able to speak. ? Not being able to use a part of your body. ? Confusion. ? A bad headache. You have two or more seizures in a row. You do not wake up right after a seizure. You get hurt during a seizure. These symptoms may be an emergency. Do not wait to see if the symptoms will go away. Get medical help right away. Call your local emergency services (911 in the [place] Do not drive yourself to the hospital. Summary Seizures usually last from 30 seconds to 2 minutes. Usually, they are not harmful unless they last a long time. Do not eat or drink anything that may keep your medicine from working, such as alcohol. Teach friends and family what to do when you have a seizure. Contact your doctor each time you have a seizure. This information is not intended to replace advice given to you by your health care provider. Make sure you discuss any questions you have with your health care provider. Document Released: 01/25/2009 Document Revised: 10/27/2019 Document Reviewed: 10/27/2019 Elsevier Patient Education 2020 [employer] Additional Information VACCINATE! IT SAVES LIVES! Members of the community who have not yet received the COVID-19 vaccine and would like to receive it can visit one of [facility] vaccine clinics. There are many vaccine clinic locations within the [facility]. For locations and available times, please visit [email or web address] It is important to note that some COVID mobile vaccine clinics are held outdoors and may be canceled in rainy or stormy conditions. To learn more about pediatric vaccinations (ages 5-11), we invite you to visit the [facility] webpage. [email or web address] learn more about the COVID-19 vaccine, we invite you to visit the [facility] website for a list of frequently asked questions. [email or web address] [facility] Patient Portal Access Instructions: Stay connected with your healthcare team and access your personal medical information anytime with the [facility] Patient Portal.If you would like a full copy of your medical records, please contact the [facility] Medical Records Department, Wednesday through Wednesday between 8a.m. and 4:30p.m. Please follow the directions below to access the portal: 1.Access the email account you provided upon registration to the [facility].2.Look for an invitation email from [facility].3.Open the email and access the invitation link: Accept Invitation to [facility]4.Fill in the required zamarripa to create your account. Sign into [email or web address] with your username and password that you created in the above steps to stay up to date. You can then view a summary of results, a summary of your visits, and the ability to download your summaries to your computer or send the information securely to a physician. Remember that your healthcare information is confidential, so carefully consider who you will allow to register on the [facility] Patient Portal for access to your information. You can also access the [facility] Patient Portal on the [employer] miky. Simply click on Health Records under HealthData and then click on the [facility] logo. HOW TO SAFELY DISPOSE OF PRESCRIPTION MEDICATIONS Please use one of the following methods to safely dispose of your unused medications. 1.Use a drug disposal kit: the drug disposal pouch allows you to safely discard your old and unuseddrugs. Ask your nurse to give you one when you are discharged.2.Visit a local take-back location: Many local pharmacies and police departments have programs that collect old and unwanted prescriptiondrugs. Call your local pharmacy or go to http://bit.CrowdTangle/7D7Zl9g to find one close to you.3.Make use of household items: Use cat litter or old coffee grounds to dispose medications if other options arenot available. Mix your drugs with these household products, seal them in an airtight container andthrow it into the garbage. Call [facility]: [phone] to be sure your drugs can be disposed of in this way. Some medicines may require a different approach.4.Never flush your medications down the toilet. IF YOU HAVE BEEN PRESCRIBED AN OPIOID FOR PAIN If you have been prescribed an opioid (such as hydrocodone, oxycodone or morphine), it is critical to understand the possible side effects and risks of opioid pain medications. Even when taken as directed, opioids can have several side effects including: Tolerance, meaning you might need to take more of a medication for the same pain relief. Nausea, vomiting and/or constipation. Sleepiness, dizziness, dry mouth, confusion, depression or itching. Physical dependence, meaning you have withdrawal symptoms when a medication is stopped, can develop within a few days. KNOW YOUR RESPONSIBILITIES It is important to know exactly how much and how often to take the opioid pain medications you are prescribed. Never take opioids in higher amounts or more often than prescribed. Do not combine opioids with alcohol or other drugs that cause drowsiness, such as benzodiazepines, also known as benzos, including diazepam and alprazolam, muscle relaxants or sleep aids. Never sell or share prescription opioids. This is illegal. Store opioids in a secure place and out of reach of others (including children, family, friends and visitors). The last page of this document has been signed and retained as a CHART COPY. Signatures Patient Education Materials Seizure, Adult, Cugl-nn-Kppz Medication Leaflets My discharge plan and instructions have been reviewed and explained to me and IJUDIT PATRICK N understand my current condition and have read and understand these discharge instructions. I have received a written copy of the plan/instructions. If I have questions, I am aware that I should contact my doctor. 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 I have examined the patient and reviewed all diagnostic data.I have reviewed the note of the resident. It documents the interval history obtained, examination pe rformed, and diagnostic testing results compiled by him/her. Reviewed chief complaint at presentation/HPI and/or reason for today's visit. Unit/floor time personally spent by the attending physician, if applicable (>50% counseling and/or coordination of care): minutes Additional comments, if any: Doing very well and is fine for discharge. Bed has been secured. Being discharged for continued rehabilitation from his stroke on his previous meds plus Keppra. I have provided my contact informationin case any concerns or issues arise between now and outpatient follow-up. 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 Randolph Dhillon MD, FACP, [facility] Digitally Signed by RANDOLPH DHILLON MD on 03/30/2022 05:36 PM [facility] [id number] Discharge summary Date of Service 03/30/2022 Discharge Diagnosis 1. possible Seizure ([id number] - [facility]) Additional Orders: Ordered: BMP,03/31/22 5:01:00 EDT, Next AM Draw (one day only), Blood, Once, Stop date 03/31/22 4:00:00 EDT Ordered: CBC,03/31/22 5:01:00 EDT, Next AM Draw (one day only), Blood, Once, Stop date 03/31/22 4:00:00 EDT Ordered: MG Level,03/31/22 5:01:00 EDT, Next AM Draw (one day only), Blood, Once, Stop date 03/31/22 4:00:00 EDT Hospital Course Patient presented to ED on 03/27/2022 after experiencing a seizure like activity that affected his left foot with gradual encompassing of the entire body. Seizure episode lasted for 10 minutes with no loss of consciousness. PMH is significant for alcohol abuse, HTN, hyperlipidemia, and ischemic stroke three weeks prior to seizure onset, where patient was admitted with [facility] for recovery. Patient was given Keppra 1500 mg loading dose followed by maintenance dose of 750 mg BID. Ammonia, CPK, TSH, proBNP, and serial EKG/Troponin were ordered to determine etiology of seizure origin. Patient underwent swallow evaluation to determine appropriate diet during admission. Patient was advised to ambulate as much as possible and nursing staff was instructed to monitor patient movement ability. Patient was restarted on prior statin and aspirin therapy due to s/p ischemic stroke 3 weeks prior. PMY was significant for HTN, so prior losartan medication was restarted for hypertensive control. Patient was started on DVT prophylaxis of SubQ heparin. CXR was obtained which demonstrated no acute cardiopulmonary abnormality. CT Head or Brain w/o contrast was also ordered which showed no significant interval change. EKG was done in the ED which showed sinus tachycardia with borderline left axis deviation. Code status was obtained in the ED by [facility] house staff, determined to be FULL CODE. On 03/28/2022, Dr. Prasad (neurology) consulted on the patient, with recommendation of MRI. Patient was apprehensive to receive an MRI, with the wish to return to the stroke rehabilitation facility to resume rehab. Determination was made to not undergo the MRI. Allergies NKA Consults No qualifying data available. Imaging Results and Diagnostics MRI Brain w/ + w/o Contrast Result Date: March 29, 2022 Verified By: ALESSANDRO PRITCHETT, JOAQUIN Macias CLINICAL STATEMENT: IMPRESSION: Recent area of infarct in the left periventricular white matter. 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 XR Chest 1 View Result Date: March 28, 2022 Verified By: PALOMO JAQUEZ MD CLINICAL STATEMENT: IMPRESSION: No acute process. I have personally reviewed the images of this examination and agree with theresident's findings and interpretation. XR Chest 1 View Result Date: March 27, 2022 Verified By: HELENA DÍAZ MD CLINICAL STATEMENT: IMPRESSION: No acute cardiopulmonary abnormality is seen. CT Head or Brain w/o Contrast Result Date: March 27, 2022 Verified By: ANTOINE YIN MD CLINICAL STATEMENT: IMPRESSION: No significant interval change. Objective Vitals and Measurements T: 36.8 C (Oral) TMIN: 36.3 C (Oral) TMAX: 37.2 C (Oral) HR: 92(Monitored) RR: 18 BP: 137/67 SpO2: 96% Weight Dosing Weight: 84.5 kg (03/27/22) Code Status Code Status - Ordered -- 03/27/22 21:14:00 EDT, Full Code, Constant Order Admission Date 03/27/2022 Discharge Date 03/30/2022 Patient Instructions You admitted to hospital for a probable seizure and started on antiseizure medications Keppra. Neurology also spoke to you in the hospital and highly recommended a repeat MRI with contrast going forward. It is okay to obtain MRI outpatient, it is okay to be discharged at this time to return to [place] for your therapy for your previous stroke. Your other medications were were not changed, follow-up with PCP as well as take your medications as prescribed. Medications New Prescription levETIRAcetam (Keppra 750 mg oral tablet)1 tab(s) by mouth two (2) times a day for 30 Days. Refills: 1. Unchanged acetaminophen (Tylenol 325 mg oral tablet)2 tab(s) by mouth every 4 hours as needed Muscle pain. Al hydroxide/Mg hydroxide/simethicone (aluminum hydroxide/magnesium hydroxide/simethicone 400 mg-400 mg-40 mg/5 mL oral suspension)30 Milliliter by mouth every 6 hours as needed indigestion. aspirin (aspirin 81 mg oral delayed release tablet)1 tab(s) by mouth once a day for 30 Days. Refills: 3. atorvastatin (atorvastatin 80 mg oral tablet)1 tab(s) by mouth once a day for 30 Days. Refills: 2. docusate (docusate sodium 100 mg oral capsule)1 cap by mouth two (2) times a day as needed as needed for constipation. glucagon (glucagon 1 mg injection)1 Milligram Intravenous once as needed Hypoglycemia. glycerin (glycerin adult rectal suppository)1 suppository(ies) in the rectum once a day as needed as needed for constipation. hydrocortisone topical (hydrocortisone 2.5% topical cream)1 miky(s) Topical two (2) times a day as needed Itching. losartan (losartan 25 mg oral tablet)1 tab(s) by mouth once a day for 30 Days. Refills: 2. magnesium hydroxide (Milk of Magnesia 8% oral suspension)30 Milliliter by mouth daily at bedtime asneeded as needed for constipation. mirtazapine (mirtazapine 15 mg oral tablet)1 tab(s) by mouth daily at bedtime. nystatin (nystatin 100,000 units/mL oral suspension)5 Milliliter by mouth four (4) times a day. polyethylene glycol 3350 (MiraLax oral powder for reconstitution)17 gram(s) by mouth once a day as needed Constipation. thiamine (thiamine 100 mg oral tablet)1 tab(s) by mouth once a day. Follow Up Follow Up with [facility] When Why: Skilled Where: [phone] Follow Up with PHYSICIAN, NONE When Within 1-2 days Follow Up Appointments No qualifying data available. Follow Up Labs/Studies Discharge Labs No Follow-up Labs Discharge Studies Discharge Outpatient Radiology - Ordered -- MRI BRAIN WITH CONTRAST, Seizure, follow-up within: 2-3 weeks, Results Notify to: OLEG SOTO MD, 03/28/22 11:23:00 EDT Discharge Diet No qualifying data available. Discharge Activity No qualifying data available. Condition on Discharge Fair. Readmission Risk/Palliative Score No qualifying data available. Discharge Disposition residential facility. Digitally Signed by EPI ONEILL MD on 03/30/2022 04:50 PM [id number] Note Discharge Instructions Thank you for allowing [facility] to assist you with your healthcare needs. The following is importantdischarge information regarding your hospital visit. Your Care Team PHYSICIAN, NONE Your Diagnosis possible Seizure What to do next Instructions From Your Doctor You admitted to hospital for a probable seizure and started on antiseizure medications Keppra. Neurology also spoke to you in the hospital and highly recommended a repeat MRI with contrast going forward. It is okay to obtain MRI outpatient, it is okay to be discharged at this time to return to [place] for your therapy for your previous stroke. Your other medications were were not changed, follow-up with PCP as well as take your medications as prescribed. Follow Up Appointments Follow Up with [facility] When Why: [place] Where: [phone] Follow Up with PHYSICIAN, NONE When Within 1-2 days The Following Activity and Diet Have Been Ordered for You Discharge Activity - Ordered -- NO activity restrictions, 03/28/22 11:23:00 EDT Transfer of Care Activity - Ordered -- Activity As Tolerated, 03/28/22 11:24:00 EDT Discharge Diet - Ordered -- No changes were made to your diet during your hospital stay. Please resume your pre hospitalization diet on discharge., 03/28/22 11:23:00 EDT Transfer of Care Diet - Ordered -- Type of Diet: Regular Diet, 03/28/22 11:24:00 EDT The Following Equipment Has Been Ordered for You No qualifying data available. The Following Treatments Have Been Ordered for You Discharge Labs No qualifying data available. Discharge Radiology Discharge Outpatient Radiology - Ordered -- MRI BRAIN WITH CONTRAST, Seizure, follow-up within: 2-3 weeks, Results Notify to: OLEG SOTO MD, 03/28/22 11:23:00 EDT Other Therapies No qualifying data available. Post Acute Orders Transfer of Care Code Status - Ordered -- Full Code, Constant Order Transfer of Care Orders Electronically Signed By - Ordered -- 03/28/22 11:24:00 EDT, RANDOLPH DHILLON MD Transfer of Care Prognosis - Ordered -- Fair, Patient Aware: Yes Transfer of Care Rehab Potential - Ordered -- Rehab potential fair, 03/28/22 11:24:53 EDT Someone Will Contact You Regarding These Home Health Referrals No home referrals have been ordered for you. No one will call you. Allergies NKA Medications Please ask your primary doctor or pharmacist before taking any other medication not listed, including over the counter drugs, herbal medications, vitamins and or supplements as they may interact withyour home medications. What How Much When Instructions Last Dose New levETIRAcetam (Keppra 750 mg oral tablet) 1 tab(s) by mouth Two (2) times a day Duration: 30 Days Refills: 1 Pickup at [id number] Unchanged acetaminophen (Tylenol 325 mg oral tablet) 2 tab(s) by mouth Every 4 hours as needed for Muscle pain Unchanged Al hydroxide/ Mg hydroxide/ simethicone (aluminum hydroxide/ magnesium hydroxide/ simethicone 400 mg-400 mg-40 mg/ 5 mL oral suspension) 30 Milliliter by mouth Every 6 hours as needed for indigestion Unchanged aspirin (aspirin 81 mg oral delayed release tablet) 1 tab(s) by mouth Once a day Duration: 30 Days Unchanged atorvastatin (atorvastatin 80 mg oral tablet) 1 tab(s) by mouth Once a day Duration: 30 Days Unchanged docusate (docusate sodium 100 mg oral capsule) 1 cap by mouth Two (2) times a day as needed for as needed for constipation Unchanged glucagon (glucagon 1 mg injection) 1 Milligram Intravenous Once as needed for Hypoglycemia Unchanged glycerin (glycerin adult rectal suppository) 1 suppository(ies) in the rectum Once a day as needed for as needed for constipation Unchanged hydrocortisone topical (hydrocortisone 2.5% topical cream) 1 miky(s) Topical Two (2) times a day as needed for Itching Unchanged losartan (losartan 25 mg oral tablet) 1 tab(s) by mouth Once a day Duration: 30 Days Unchanged magnesium hydroxide (Milk of Magnesia 8% oral suspension) 30 Milliliter by mouth Daily at bedtime as needed for as needed for constipation Unchanged mirtazapine (mirtazapine 15 mg oral tablet) 1 tab(s) by mouth Daily at bedtime Unchanged nystatin (nystatin 100,000 units/ mL oral suspension) 5 Milliliter by mouth Four (4) times a day Unchanged polyethylene glycol 3350 (MiraLax oral powder for reconstitution) 17 gram(s) by mouth Once a day as needed for Constipation Unchanged thiamine (thiamine 100 mg oral tablet) 1 tab(s) by mouth Once a day Pharmacy Information [id number]: [address], [place] [id number] [phone] Please take this list to your next doctor s visit. Bring all medications you take, including over the counter medications, herbals and other supplements with you to your doctor s visit. Patients and families are reminded to discard old lists and to update any records with all medication providers or retail pharmacies. Education Materials Seizure, Adult A seizure is a sudden burst of abnormal electrical activity in the brain. Seizures usually last from 30 seconds to 2 minutes. They can cause many different symptoms. Usually, seizures are not harmful unless they last a long time. What are the causes? Common causes of this condition include: Fever or infection. Conditions that affect the brain, such as: ? A brain abnormality that you were born with. ? A brain or head injury. ? Bleeding in the brain. ? A tumor. ? Stroke. ? Brain disorders such as autism or cerebral palsy. Low blood sugar. Conditions that are passed from parent to child (are inherited). Problems with substances, such as: ? Having a reaction to a drug or a medicine. ? Suddenly stopping the use of a substance (withdrawal). In some cases, the cause may not be known. A person who has repeated seizures over time without a clear cause has a condition called epilepsy. What increases the risk? You are more likely to get this condition if you have: A family history of epilepsy. Had a seizure in the past. A brain disorder. A history of head injury, lack of oxygen at , or strokes. What are the signs or symptoms? There are many types of seizures. The symptoms vary depending on the type of seizure you have. Examples of symptoms during a seizure include: Shaking (convulsions). Stiffness in the body. Passing out (losing consciousness). Head nodding. Staring. Not responding to sound or touch. Loss of bladder control and bowel control. Some people have symptoms right before and right after a seizure happens. Symptoms before a seizure may include: Fear. Worry (anxiety). Feeling like you may vomit (nauseous). Feeling like the room is spinning (vertigo). Feeling like you saw or heard something before (sheila her). Odd tastes or smells. Changes in how you see. You may see flashing lights or spots. Symptoms after a seizure happens can include: Confusion. Sleepiness. Headache. Weakness on one side of the body. How is this treated? Most seizures will stop on their own in under 5 minutes. In these cases, no treatment is needed. Seizures that last longer than 5 minutes will usually need treatment. Treatment can include: Medicines given through an IV tube. Avoiding things that are known to cause your seizures. These can include medicines that you take for another condition. Medicines to treat epilepsy. Surgery to stop the seizures. This may be needed if medicines do not help. Follow these instructions at home: Medicines Take kjoi-vfd-ujluhvn and prescription medicines only as told by your doctor. Do not eat or drink anything that may keep your medicine from working, such as alcohol. Activity Do not do any activities that would be dangerous if you had another seizure, like driving or swimming. Wait until your doctor says it is safe for you to do them. If you live in the [place] ask your local DMV (department of [employer]) when you can drive. Get plenty of rest. Teaching others Teach friends and family what to do when you have a seizure. They should: Lay you on the ground. Protect your head and body. Loosen any tight clothing around your neck. Turn you on your side. Not hold you down. Not put anything into your mouth. Know whether or not you need emergency care. Stay with you until you are better. General instructions Contact your doctor each time you have a seizure. Avoid anything that gives you seizures. Keep a seizure diary. Write down: ? What you think caused each seizure. ? What you remember about each seizure. Keep all follow-up visits as told by your doctor. This is important. Contact a doctor if: You have another seizure. You have seizures more often. There is any change in what happens during your seizures. You keep having seizures with treatment. You have symptoms of being sick or having an infection. Get help right away if: You have a seizure that: ? Lasts longer than 5 minutes. ? Is different than seizures you had before. ? Makes it harder to breathe. ? Happens after you hurt your head. You have any of these symptoms after a seizure: ? Not being able to speak. ? Not being able to use a part of your body. ? Confusion. ? A bad headache. You have two or more seizures in a row. You do not wake up right after a seizure. You get hurt during a seizure. These symptoms may be an emergency. Do not wait to see if the symptoms will go away. Get medical help right away. Call your local emergency services (911 in the [place] Do not drive yourself to the hospital. Summary Seizures usually last from 30 seconds to 2 minutes. Usually, they are not harmful unless they last a long time. Do not eat or drink anything that may keep your medicine from working, such as alcohol. Teach friends and family what to do when you have a seizure. Contact your doctor each time you have a seizure. This information is not intended to replace advice given to you by your health care provider. Make sure you discuss any questions you have with your health care provider. Document Released: 01/25/2009 Document Revised: 10/27/2019 Document Reviewed: 10/27/2019 Elsevier Patient Education 2020 [employer]. Additional Information VACCINATE! IT SAVES LIVES! Members of the community who have not yet received the COVID-19 vaccine and would like to receive it can visit one of [facility] vaccine clinics. There are many vaccine clinic locations within the [facility]. For locations and available times, please visit [email or web address].[place].gov/. It is important to note that some COVID mobile vaccine clinics are held outdoors and may be canceled in rainy or stormy conditions. To learn more about pediatric vaccinations (ages 5-11), we invite you to visit the [facility] webpage. [email or web address] learn more about the COVID-19 vaccine, we invite you to visit the [facility] website for a list of frequently asked questions. [email or web address] [facility] Patient Portal Access Instructions: Stay connected with your healthcare team and access your personal medical information anytime with the [facility] Patient Portal.If you would like a full copy of your medical records, please contact the [facility] Medical Records Department, Wednesday through Wednesday between 8a.m. and 4:30p.m. Please follow the directions below to access the portal: 1.Access the email account you provided upon registration to the hospital.2.Look for an invitation email from [facility].3.Open the email and access the invitation link: Accept Invitation to [facility]4.Fill in the required zamarripa to create your account. Sign into [email or web address] with your username and password that you created in the above steps to stay up to date. You can then view a summary of results, a summary of your visits, and the ability to download your summaries to your computer or send the information securely to a physician. Remember that your healthcare information is confidential, so carefully consider who you will allow to register on the [facility] Patient Portal for access to your information. You can also access the [facility] Patient Portal on the [employer] miky. Simply click on Health Records under [employer] and then click on the [facility] logo. HOW TO SAFELY DISPOSE OF PRESCRIPTION MEDICATIONS Please use one of the following methods to safely dispose of your unused medications. 1.Use a drug disposal kit: the drug disposal pouch allows you to safely discard your old and unuseddrugs. Ask your nurse to give you one when you are discharged.2.Visit a local take-back location: Many local pharmacies and police departments have programs that collect old and unwanted prescriptiondrugs. Call your local pharmacy or go to [email or web address] to find one close to you.3.Make use of household items: Use cat litter or old coffee grounds to dispose medications if other options arenot available. Mix your drugs with these household products, seal them in an airtight container andthrow it into the garbage. Call [facility]: [phone] to be sure your drugs can be disposed of in this way. Some medicines may require a different approach.4.Never flush your medications down the toilet. IF YOU HAVE BEEN PRESCRIBED AN OPIOID FOR PAIN If you have been prescribed an opioid (such as hydrocodone, oxycodone or morphine), it is critical to understand the possible side effects and risks of opioid pain medications. Even when taken as directed, opioids can have several side effects including: Tolerance, meaning you might need to take more of a medication for the same pain relief. Nausea, vomiting and/or constipation. Sleepiness, dizziness, dry mouth, confusion, depression or itching. Physical dependence, meaning you have withdrawal symptoms when a medication is stopped, can develop within a few days. KNOW YOUR RESPONSIBILITIES It is important to know exactly how much and how often to take the opioid pain medications you are prescribed. Never take opioids in higher amounts or more often than prescribed. Do not combine opioids with alcohol or other drugs that cause drowsiness, such as benzodiazepines, also known as benzos, including diazepam and alprazolam, muscle relaxants or sleep aids. Never sell or share prescription opioids. This is illegal. Store opioids in a secure place and out of reach of others (including children, family, friends and visitors). The last page of this document has been signed and retained as a CHART COPY. Signatures Patient Education Materials Seizure, Adult, Jrnm-ln-Otds Medication Leaflets My discharge plan and instructions have been reviewed and explained to me and I,MONICA SPAIN understand my current condition and have read and understand these discharge instructions. I have received a written copy of the plan/instructions. If I have questions, I am aware that I should contact my doctor. 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 No acute events overnight. Denies chest pain, palpitations, abdominal pain, nausea, vomiting, new seizures or any other neurologic changes. Objective Vitals and Measurements T: 36.5 C (Oral) TMIN: 36.4 C (Oral) TMAX: 37 C (Oral) HR: 89 RR: 18 BP: 166/89 SpO2: 95% Intake and Output 7AM Yesterday to 7AM Today Intake and Output (Last 24 hours) Intake Output Urine Voided 825.00 Stool Count 0.00 Emesis Count 0.00 Total Summary Total Intake 0.00 Total Output 825.00 Fluid Balance -825.00 Physical Exam General Appearance: Alert and interactive Head: NC/AT HEENT: EOMI, PERRL Neck: No lymphadenopathy Cardiac: tachycardia, Regular rhythm, no m/r/g Lungs: CTAB, no rhonchi wheezing or crackles Abdomen: increased BS, no abdominal pain upon palpation as compared to yesterday Musculoskeletal: Full ROM on left side. minimal movement of RUE Extremities:no clubbing or edema Neurological: 1/5 movement of RUE and RLE, CN 2-12 intact Skin: warm and no tenting Weight Dosing Weight: 84.5 kg (03/27/22) Medications Medications (17) Active Scheduled: (9) aspirin 81 mg EC 81 mg 1 tab(s), Oral, qDay atorvastatin 80 mg tablet 80 mg 1 tab(s), Oral, qDay heparin 5,000 units/mL (1 mL) vial 5,000 unit(s) 1 mL, Subcutaneous, q8h insulin lispro 100 units/mL Soln (3 mL) 0-10 unit(s)/dose, Subcutaneous, TIDAC levETIRAcetam 750 mg 7.5 mL, IV Piggyback, BID losartan 25 mg tablet 25 mg 1 tab(s), Oral, qDay mirtazapine 15 mg tablet 15 mg 1 tab(s), Oral, qHS nystatin susp 100,000 units/mL 5 mL UD 500,000 unit(s) 5 mL, Oral, QID thiamine (w/calcium) 100 mg tablet 100 mg 1 tab(s), Oral, qDay Continuous: (0) PRN: (8) acetaminophen 325 mg Tablet 650 mg 2 tab(s), Oral, q4h Al hydrox/Mg hydrox/simethicone 200-200-20 mg/5 mL Susp UD 30 mL, Oral, q6h albuterol - ipratropium 2.5 mg-0.5 mg/3 mL Inhal Suzanna UD 3 mL, Inhalation, q4hRT docusate sodium 100 mg Capsule 100 mg 1 cap(s), Oral, BID hydrocortisone topical 2.5% Cream 1 miky(s), Topical, BID magnesium hydroxide 8% Suspension (60mL) 2.4 gram(s), Oral, qHS melatonin 3 mg tablet 3 mg 1 tab(s), Oral, qHS polyethylene glycol 3350 - UD packet 17 gram(s) 15 mL, Oral, qDay Lab Results 03/28 06:33 WBC: 8.1 Hgb: 13.4 Hct: 38.1 L Platelet: 319 Neutrophil %: 52.1 Glucose Level: 94 Sodium Level: 144 Potassium Level: 4.0 BUN: 15.0 Creatinine Lvl (s): 0.77 EKG No qualifying data available. Time Spent 1. New onset seizure 2. History of CVA 3. Abdominal pain 4. Alcohol use disorder 5. Hypertension 6. Hyperlipidemia 7. DVT prophylaxis 8. CODE STATUS full code This is a 71-year-old gentleman who presented with new onset simple seizure progressing to general tonic-clonic seizure. This was witnessed. On admission patient's ammonia level was 63, troponins were stable, proBNP at 485 and TSH of 4.3. Patient was loaded with Keppra. We will switch patient's IV Keppra 750 mg twice daily to p.o. Continue with regular diet as tolerated. Continue working with PT/OT We will order MRI with and without contrast to be done if patient stays. If he needs to go to [place] he can do MRI as an outpatient. Ordered MRI should not hamper patient's discharge to [place]. Will order 0.5 mg IV Ativan before MRI for possible patient anxiety. Patient is followed by neurology appreciate their input. To follow-up with [facility] after being discharged. Patient has a history of ischemic stroke with a residual right-sided hemiparesis 3 weeks prior to being admitted to the hospital. There has not been any new neurologic symptoms. We will continue statin and aspirin. Continue to monitor for any new symptoms. Regarding patient's hypertension Patient continues to be hypertensive today patient's blood pressure was 169/96. We will increase patient's losartan from 25 to 50 mg daily. DVT prophylaxis subcu heparin 5000 units every 8 hour CODE STATUS full code Digitally Signed by RYLAND RAMIREZ MD on 03/29/2022 12:12 PM [id number] Note ORIGINAL EXAMINATION: MRI OF THE BRAIN WITHOUT AND WITH CONTRAST 03/29/2022 3:31 pm TECHNIQUE: Multiplanar multisequence MRI of the head/brain was performed without and with the administration of intravenous contrast. COMPARISON: None. HISTORY: ORDERING SYSTEM PROVIDED HISTORY: Reason for Exam: post-seizure FINDINGS: INTRACRANIAL STRUCTURES/VENTRICLES: In the left periventricular white matter there is a 3.1 x 1.6 cm area of restricted diffusion. 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 There is an area of old cortical infarct in the left parietal lobe laterally measuring 2 x 0.5 cm. No mass effect or midline shift. No evidence of an acute intracranial hemorrhage. There is mild central atrophy.. The sellar/suprasellar regions appear unremarkable. The normal signal voids within the major intracranial vessels appear maintained. No abnormal focus of enhancement is seen within the brain. ORBITS: The visualized portion of the orbits demonstrate no acute abnormality. SINUSES: The visualized paranasal sinuses and mastoid air cells are well aerated. BONES/SOFT TISSUES: The bone marrow signal intensity appears normal. The soft tissues demonstrate no acute abnormality. IMPRESSION: Recent area of infarct in the left periventricular white matter. 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 Interpreted by: Joaquin Key MD Preliminary Report By: Joaquin Key MD Electronically signed By Joaquin Key MD Dictated Date: 03/29/2022 5:21:48 PM Prelim Date: 03/29/2022 5:30:08 PM Sign Date: 03/29/2022 5:30:08 PM Ordering Provider: [facility]08-07-2022 Note ORIGINAL EXAMINATION: MRI OF THE BRAIN WITHOUT AND WITH CONTRAST 03/29/2022 3:31 pm TECHNIQUE: Multiplanar multisequence MRI of the head/brain was performed without and with the administration of intravenous contrast. COMPARISON: None. HISTORY: ORDERING SYSTEM PROVIDED HISTORY: Reason for Exam: post-seizure FINDINGS: INTRACRANIAL STRUCTURES/VENTRICLES: In the left periventricular white matter there is a 3.1 x 1.6 cm area of restricted diffusion. 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 There is an area of old cortical infarct in the left parietal lobe laterally measuring 2 x 0.5 cm. No mass effect or midline shift. No evidence of an acute intracranial hemorrhage. There is mild central atrophy.. The sellar/suprasellar regions appear unremarkable. The normal signal voids within the major intracranial vessels appear maintained. No abnormal focus of enhancement is seen within the brain. ORBITS: The visualized portion of the orbits demonstrate no acute abnormality. SINUSES: The visualized paranasal sinuses and mastoid air cells are well aerated. BONES/SOFT TISSUES: The bone marrow signal intensity appears normal. The soft tissues demonstrate no acute abnormality. IMPRESSION: Recent area of infarct in the left periventricular white matter. 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 Interpreted by: Joaquin Key MD Preliminary Report By: Joaquin Key MD Electronically signed By Joaquin Key MD Dictated Date: 03/29/2022 5:21:48 PM Prelim Date: 03/29/2022 5:30:08 PM Sign Date: 03/29/2022 5:30:08 PM Ordering Provider: [facility]08-07-2022 Progress note Date of Service February 26, 2022 Chief Complaint New onset seizures Subjective Was seen and examined bedside today. No acute events overnight. Denies chest pain, palpitations, abdominal pain, nausea, vomiting, new seizures or any other neurologic changes. Objective Vitals and Measurements T: 36.5 C (Oral) TMIN: 36.4 C (Oral) TMAX: 37 C (Oral) HR: 89 RR: 18 BP: 166/89 SpO2: 95% Intake and Output 7AM Yesterday to 7AM Today Intake and Output (Last 24 hours) Intake Output Urine Voided 825.00 Stool Count 0.00 Emesis Count 0.00 Total Summary Total Intake 0.00 Total Output 825.00 Fluid Balance -825.00 Physical Exam General Appearance: Alert and interactive Head: NC/AT HEENT: EOMI, PERRL Neck: No lymphadenopathy Cardiac: tachycardia, Regular rhythm, no m/r/g Lungs: CTAB, no rhonchi wheezing or crackles Abdomen: increased BS, no abdominal pain upon palpation as compared to yesterday Musculoskeletal: Full ROM on left side. minimal movement of RUE Extremities:no clubbing or edema Neurological: 1/5 movement of RUE and RLE, CN 2-12 intact Skin: warm and no tenting Weight Dosing Weight: 84.5 kg (03/27/22) Medications Medications (17) Active Scheduled: (9) aspirin 81 mg EC 81 mg 1 tab(s), Oral, qDay atorvastatin 80 mg tablet 80 mg 1 tab(s), Oral, qDay heparin 5,000 units/mL (1 mL) vial 5,000 unit(s) 1 mL, Subcutaneous, q8h insulin lispro 100 units/mL Soln (3 mL) 0-10 unit(s)/dose, Subcutaneous, TIDAC levETIRAcetam 750 mg 7.5 mL, IV Piggyback, BID losartan 25 mg tablet 25 mg 1 tab(s), Oral, qDay mirtazapine 15 mg tablet 15 mg 1 tab(s), Oral, qHS nystatin susp 100,000 units/mL 5 mL UD 500,000 unit(s) 5 mL, Oral, QID thiamine (w/calcium) 100 mg tablet 100 mg 1 tab(s), Oral, qDay Continuous: (0) PRN: (8) acetaminophen 325 mg Tablet 650 mg 2 tab(s), Oral, q4h Al hydrox/Mg hydrox/simethicone 200-200-20 mg/5 mL Susp UD 30 mL, Oral, q6h albuterol - ipratropium 2.5 mg-0.5 mg/3 mL Inhal Suzanna UD 3 mL, Inhalation, q4hRT docusate sodium 100 mg Capsule 100 mg 1 cap(s), Oral, BID hydrocortisone topical 2.5% Cream 1 miky(s), Topical, BID magnesium hydroxide 8% Suspension (60mL) 2.4 gram(s), Oral, qHS melatonin 3 mg tablet 3 mg 1 tab(s), Oral, qHS polyethylene glycol 3350 - UD packet 17 gram(s) 15 mL, Oral, qDay Lab Results 03/28 06:33 WBC: 8.1 Hgb: 13.4 Hct: 38.1 L Platelet: 319 Neutrophil %: 52.1 Glucose Level: 94 Sodium Level: 144 Potassium Level: 4.0 BUN: 15.0 Creatinine Lvl (s): 0.77 EKG No qualifying data available. Time Spent 1. New onset seizure 2. History of CVA 3. Abdominal pain 4. Alcohol use disorder 5. Hypertension 6. Hyperlipidemia 7. DVT prophylaxis 8. CODE STATUS full code This is a 71-year-old gentleman who presented with new onset simple seizure progressing to general tonic-clonic seizure. This was witnessed. On admission patient's ammonia level was 63, troponins were stable, proBNP at 485 and TSH of 4.3. Patient was loaded with Keppra. We will switch patient's IV Keppra 750 mg twice daily to p.o. Continue with regular diet as tolerated. Continue working with PT/OT We will order MRI with and without contrast to be done if patient stays. If he needs to go to [place] he can do MRI as an outpatient. Ordered MRI should not hamper patient's discharge to [place]. Will order 0.5 mg IV Ativan before MRI for possible patient anxiety. Patient is followed by neurology appreciate their input. To follow-up with [facility] after being discharged. Patient has a history of ischemic stroke with a residual right-sided hemiparesis 3 weeks prior to being admitted to the hospital. There has not been any new neurologic symptoms. We will continue statin and aspirin. Continue to monitor for any new symptoms. Regarding patient's hypertension Patient continues to be hypertensive today patient's blood pressure was 169/96. We will increase patient's losartan from 25 to 50 mg daily. DVT prophylaxis subcu heparin 5000 units every 8 hour CODE STATUS full code Digitally Signed by RYLAND RAMIREZ MD on 03/29/2022 12:12 PM [facility] [id number] Note Date of Service 03/28/2022 Chief Complaint seizure Subjective Patient seen and examined at bedside this morning. He was reportedly ready to go back to [place] to continue PT at this time, but this was later discontinued as [place] did not have availability atthis time. Patient had no complaints and felt better than prior. No fever, chills, SOB, or complaints of abdominal pain at this time. Objective Vitals and Measurements T: 36.5 C (Oral) TMIN: 36.4 C (Oral) TMAX: 36.8 C (Oral) HR: 82(Monitored) RR: 18 BP: 145/63 SpO2: 94% HT: 177.8 cm WT: 84.5 kg BMI: 26.73 Intake and Output 7AM Yesterday to 7AM Today Intake and Output (Last 24 hours) Intake Oral Intake 327.00 Output Urine Voided 425.00 Stool Count 0.00 Diaper Count 1.00 Total Summary Total Intake 327.00 Total Output 425.00 Fluid Balance -98.00 Physical Exam General Appearance: Alert and interactive Head: NC/AT HEENT: EOMI, PERRL Neck: No lymphadenopathy Cardiac: tachycardia, Regular rhythm, no m/r/g Lungs: CTAB, no rhonchi wheezing or crackles Abdomen: increased BS, no abdominal pain upon palpation as compared to yesterday Musculoskeletal: Full ROM on left side. minimal movement of RUE Extremities:no clubbing or edema Neurological: 1/5 movement of RUE and RLE, CN 2-12 intact Skin: warm and no tenting Weight Dosing Weight: 84.5 kg (03/27/22) Medications Medications (18) Active Scheduled: (10) acetaminophen 325 mg Tablet 650 mg 2 tab(s), Oral, q6hWA aspirin 81 mg EC 81 mg 1 tab(s), Oral, qDay atorvastatin 80 mg tablet 80 mg 1 tab(s), Oral, qDay heparin 5,000 units/mL (1 mL) vial 5,000 unit(s) 1 mL, Subcutaneous, q8h insulin lispro 100 units/mL Soln (3 mL) 0-10 unit(s)/dose, Subcutaneous, TIDAC levETIRAcetam 750 mg 7.5 mL, IV Piggyback, BID losartan 25 mg tablet 25 mg 1 tab(s), Oral, qDay mirtazapine 15 mg tablet 15 mg 1 tab(s), Oral, qHS nystatin susp 100,000 units/mL 5 mL UD 500,000 unit(s) 5 mL, Oral, QID thiamine (w/calcium) 100 mg tablet 100 mg 1 tab(s), Oral, qDay Continuous: (0) PRN: (8) acetaminophen 325 mg Tablet 650 mg 2 tab(s), Oral, q4h Al hydrox/Mg hydrox/simethicone 200-200-20 mg/5 mL Susp UD 30 mL, Oral, q6h albuterol - ipratropium 2.5 mg-0.5 mg/3 mL Inhal Suzanna UD 3 mL, Inhalation, q4hRT docusate sodium 100 mg Capsule 100 mg 1 cap(s), Oral, BID hydrocortisone topical 2.5% Cream 1 miky(s), Topical, BID magnesium hydroxide 8% Suspension (60mL) 2.4 gram(s), Oral, qHS melatonin 3 mg tablet 3 mg 1 tab(s), Oral, qHS polyethylene glycol 3350 - UD packet 17 gram(s) 15 mL, Oral, qDay Lab Results 03/28 06:33 WBC: 8.1 Hgb: 13.4 Hct: 38.1 L Platelet: 319 Neutrophil %: 52.1 Glucose Level: 94 Sodium Level: 144 Potassium Level: 4.0 BUN: 15.0 Creatinine Lvl (s): 0.77 03/27 22:03 WBC: 9.2 Hgb: 13.4 Hct: 38.0 L Platelet: 339 Neutrophil %: 54.4 Protime: 13.3 PT International Ratio: 1.1 Glucose Level: 109 Sodium Level: 144 Potassium Level: 3.7 BUN: 18.0 Creatinine Lvl (s): 0.83 03/27 12:37 WBC: 8.5 Hgb: 14.7 Hct: 41.3 Platelet: 370 Neutrophil %: 65.3 Glucose Level: 122 H Sodium Level: 138 Potassium Level: 3.6 BUN: 19.0 Creatinine Lvl (s): 0.92 Imaging Results and Diagnostics XR Chest 1 View Result Date: March 28, 2022 Verified By: PALOMO JAQUEZ MD CLINICAL STATEMENT: IMPRESSION: No acute process. I have personally reviewed the images of this examination and agree with theresident's findings and interpretation. XR Chest 1 View Result Date: March 27, 2022 Verified By: HELENA DÍAZ MD CLINICAL STATEMENT: IMPRESSION: No acute cardiopulmonary abnormality is seen. CT Head or Brain w/o Contrast Result Date: March 27, 2022 Verified By: ANTOINE YIN MD CLINICAL STATEMENT: IMPRESSION: No significant interval change. EKG Electrocardiogram - Ordered -- 03/27/22 21:14:00 EDT, Complete by Nursing Assessment/Plan Problems: 1. Seizure 2. Stroke Hx 3. Abdominal Pain 4. Alcoholism/ Alcohol Abuse 5. Hypertension 6. Hyperlipidemia Simple Partial Seizure visualized focal seizure at foot; most likely simple partial seizure, Ammonia levels 63 in ED, troponins trend stable at 16, pro-BNP at 485, TSH 4.3 Given Keppra 1500 mg loading dose - Keppra 750 mg BID for maintenance - Regular Diet as tolerated, passed swallow eval - Monitor movement and ambulate as tolerated - PT/OT provided here in [place] - D/C back to [place] hopefully tomorrow now as bed is no longer available today to continue rehab Ischemic Stroke Hx 3 weeks prior causing Right sided hemiparesis, in Rehab for physical therapy, repeat EKG/Serial Troponins negative - Statin restarted - Aspirin restarted - PT/OT - Monitor for worsening Neuro-cardiogenic abnormalities Abdominal Pain (Resolved) Epigastric tenderness upon palpation with BRBPR, no N/V, H/H stable at 13.4 - Consider PPI - Avoid NSAIDS, consider holding coagulation at this time to decrease risk of bleed - Consider Anti-spasmodic for pain - If pain continues, consider CT exam for possible diverticulosis for ischemic picture Alcohol/ Alcohol Abuse documented history, no signs for withdrawal - Thiamine - Monitor for withdrawal at this time Hypertension blood pressure currently 182/78, blood pressure at 145/63 - Losartan restarted Hyperlipidemia - Continue Statin DVT Prophylaxis: SubQ heparin 5000 units Code: Full Code Digitally Signed by NERY RENO MD on 03/28/2022 04:05 PM Digitally Signed by RANDOLPH DHILLON MD on 03/30/2022 06:21 AM [id number] Note MEDICAL TEACHING SERVICE ATTENDING PHYSICIAN NOTE I was present for, and personally supervised, the delong components of the patient's evaluation and management by the [facility] house staff today. I have examined the patient and reviewed all diagnostic data.I will review the note of the resident. It will document the interval history obtained, examination performed, and diagnostic testing results compiled by him/her. Reviewed chief complaint at presentation/HPI and/or reason for today's visit. Unit/floor time personally spent by the attending physician, if applicable (>50% counseling and/or coordination of care): Greater than 25 minutes Additional comments, if any: Seen with the [facility] resident team earlier today and evaluated comprehensively. Appreciate Dr. Prasad's guidance. Recommendation for precautionary repeat MRI, this time with contrast, discussed with Mr. Spain. He strongly desires to defer that and return to [place] for therapy. We are attempting to facilitate that for later today. Please resume PT and OT while here if that is not feasible, as we certainly do not want him to fall behind in his therapy. 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 D. X Painter Sign Maintenance(s): Shanice This note was transcribed via voice recognition software and may contain typographical errors. Randolph Dhillon MD, FACP, [facility] Digitally Signed by RANDOLPH DHILLON MD on 03/28/2022 03:25 PM [facility] [id number] Neurology Consult note Date of Service March 28, 2022 Reason for Consultation Seizure Referring Physician Dr. Dhillon History of Present Illness 71-year-old male who was recently admitted for a stroke and discharged to rehab. He has been slowlyrecovering and the right-sided hemiparesis from his stroke has been gradually improving. While at rehab he had an episode of rhythmic twitching of his left foot that spread up his entire left side, lasting a few minutes. Short while after this he had the same exact symptoms however then further generalized to a brief tonic-clonic seizure. Afterward he was significantly fatigued. He was sent to [place]. Of note he started Zoloft on March 25. I was contacted about his case and given the recurrentnature of the seizures on the side opposite of the stroke, I suggested we keep him overnight for observation and start Keppra. He has since returned to his previous baseline. Review of Systems Aside from what is mentioned in the HPI, there were no other pertinent positives in the patient's review of systems. Physical Exam Vitals and Measurements T: 36.4 C (Oral) TMIN: 36.4 C (Oral) TMAX: 36.8 C (Oral) HR: 79(Monitored) RR: 18 BP: 131/74 SpO2:98% HT: 177.8 cm WT: 84.5 kg BMI: 26.73 Weight Dosing Weight: 84.5 kg (03/27/22) Neurologic Exam Mental Status: Orientation: oriented to person, [facility], and date Language: normal fluency, normal comprehension Speech: Mild dysarthria Cranial Nerves: Pupils: 4mm -> 2mm bilaterally Visual Zamarripa: full to confrontation bilaterally Fundus: not well visualized as the patient wasn't tolerating the light and having trouble fixating CN III, IV, : EOMI. No nystagmus CN V: normal light touch and temp sensation in V1, V2, V3, bilaterally. CN VII: Right facial weakness CN VIII: auditory acuity intact to bedside testing Sensation: Light touch: intact in all 4 extremities Motor: Involuntary movements: none Strength: LUE: 5/5 proximally, 5/5 distally RUE: 3+/5 proximally, 3+/5 distally LLE: 5/5 proximally, 5/5 distally RLE: 4/5 proximally, 5-/5 distally Reflexes: R L B 3 2 BR 3 2 P 3 2 Toes up down Coordination: Zckzcc-mljw-wemtgv movements intact on the left Lab Results 03/28 06:33 WBC: 8.1 Hgb: 13.4 Hct: 38.1 L Platelet: 319 Neutrophil %: 52.1 Glucose Level: 94 Sodium Level: 144 Potassium Level: 4.0 BUN: 15.0 Creatinine Lvl (s): 0.77 03/27 22:03 WBC: 9.2 Hgb: 13.4 Hct: 38.0 L Platelet: 339 Neutrophil %: 54.4 Protime: 13.3 PT International Ratio: 1.1 Glucose Level: 109 Sodium Level: 144 Potassium Level: 3.7 BUN: 18.0 Creatinine Lvl (s): 0.83 03/27 12:37 WBC: 8.5 Hgb: 14.7 Hct: 41.3 Platelet: 370 Neutrophil %: 65.3 Glucose Level: 122 H Sodium Level: 138 Potassium Level: 3.6 BUN: 19.0 Creatinine Lvl (s): 0.92 Imaging Results and Diagnostics XR Chest 1 View Result Date: March 28, 2022 Verified By: PALOMO JAQUEZ MD CLINICAL STATEMENT: IMPRESSION: No acute process. I have personally reviewed the images of this examination and agree with theresident's findings and interpretation. XR Chest 1 View Result Date: March 27, 2022 Verified By: HELENA DÍAZ MD CLINICAL STATEMENT: IMPRESSION: No acute cardiopulmonary abnormality is seen. CT Head or Brain w/o Contrast Result Date: March 27, 2022 Verified By: ANTOINE YIN MD CLINICAL STATEMENT: IMPRESSION: No significant interval change. Assessment/Plan Seizure Recent stroke The description of his clinical events is consistent with a focal- onset seizure (clinically starting in the left foot). However, his stroke is unlikely to be the seizure focus given it was in the left hemisphere, subcortically. On his brain MRI wo from a 03/12 there were only chronic changes aside from the stroke and his head CT this admission was unrevealing. We did discuss that for a further thorough evaluation we should repeat the brain MRI with contrast and attention to the right hemisphere, in order to fully exclude any sort of lesion such as neoplasm. However, he was essentially refusing another brain MRI despite the risk of missing something such as that. Would suggest he be monitored clinically in the near future for any further neurologic symptoms, with a low threshold for checking a another brain MRI w/wo contrast if further symptoms arise. Otherwise, further inpatient plans can be held for now. Would continue Keppra 750mg BID. Common and serious side effects were discussed.I advised him to not drive until being 6 months free of any seizure and cleared by outpatient physicians. He would also need a formal driving evaluation after his stroke recovery if driving were to be considered. He can follow-up with [facility] as previously planned last admission. A total of 60 minutes was spent on this case (including reviewing the chart, taking a history, examining the patient, generating a diagnosis/plan, and discussing with the patient and the primary team.) Problem List/Past Medical History Ongoing Alcoholism /alcohol abuse High blood pressure Hyperlipidemia Ischemic stroke Kidney stone Pain Historical No qualifying data Procedure/Surgical History Lithotripsy Medications Inpatient acetaminophen, 650 mg= 2 tab(s), Oral, q4h, PRN Al hydroxide/Mg hydroxide/simethicone, 30 mL, Oral, q6h, PRN aspirin 81 mg oral delayed release tablet, 81 mg= 1 tab(s), Oral, qDay atorvastatin, 80 mg= 1 tab(s), Oral, qDay Colace, 100 mg= 1 cap(s), Oral, BID, PRN DuoNeb, 3 mL, Inhalation, q4hRT, PRN heparin 5000 units/mL injection, 5000 unit(s)= 1 mL, Subcutaneous, q8h HumaLOG 100 units/mL subcutaneous solution, 0-10 unit(s)/dose, Subcutaneous, TIDAC hydrocortisone 2.5% topical cream, 1 miky(s), Topical, BID, PRN Keppra losartan, 25 mg= 1 tab(s), Oral, qDay melatonin, 3 mg= 1 tab(s), Oral, qHS, PRN Milk of Magnesia, 2.4 gram(s), Oral, qHS, PRN Miralax Powder Packet, 17 gram(s)= 15 mL, Oral, qDay, PRN mirtazapine, 15 mg= 1 tab(s), Oral, qHS nystatin, 098114 unit(s)= 5 mL, Oral, QID thiamine, 100 mg= 1 tab(s), Oral, qDay Tylenol, 650 mg= 2 tab(s), Oral, q6hWA Home aluminum hydroxide/magnesium hydroxide/simethicone 400 mg-400 mg-40 mg/5 mL oral suspension, 30 mL,Oral, q6h, PRN aspirin 81 mg oral delayed release tablet, 81 mg= 1 tab(s), Oral, qDay, 3 refills atorvastatin 80 mg oral tablet, 80 mg= 1 tab(s), Oral, qDay, 2 refills docusate sodium 100 mg oral capsule, 100 mg= 1 cap(s), Oral, BID, PRN glucagon 1 mg injection, 1 mg, Intravenous, Once, PRN glycerin adult rectal suppository, 1 supp, Rectal, qDay, PRN hydrocortisone 2.5% topical cream, 1 miky(s), Topical, BID, PRN Keppra 750 mg oral tablet, 750 mg= 1 tab(s), Oral, BID, 1 refills losartan 25 mg oral tablet, 25 mg= 1 tab(s), Oral, qDay, 2 refills Milk of Magnesia 8% oral suspension, 2.4 gram(s)= 30 mL, Oral, qHS, PRN MiraLax oral powder for reconstitution, 17 gram(s), Oral, qDay, PRN mirtazapine 15 mg oral tablet, 15 mg= 1 tab(s), Oral, qHS nystatin 100,000 units/mL oral suspension, 630694 unit(s)= 5 mL, Oral, QID thiamine 100 mg oral tablet, 100 mg= 1 tab(s), Oral, qDay Tylenol 325 mg oral tablet, 650 mg= 2 tab(s), Oral, q4h, PRN Allergies NKA Social History Smoking Status - 08/07/2014 Never smoker Alcohol Use: Past., 03/01/2022 Substance Abuse Use: Never., 03/01/2022 Tobacco Nicotine Use: Never (less than 100 in lifetime)., 03/01/2022 Family History Asthma: Negative: Mother, Father, Sister, Brother, Daughter and Son. Cancer: Negative: Mother, Father, Sister, Brother, Daughter and Son. Diabetes mellitus: Negative: Mother, Father, Sister, Brother, Daughter and Son. HIV: Negative: Mother, Father, Sister, Brother and Son. HTN - Hypertension: Negative: Mother, Father, Sister, Brother, Daughter and Son. Heart disease: Negative: Mother, Father, Sister, Brother, Daughter and Son. Hepatitis: Negative: Mother, Father, Sister, Brother, Daughter and Son. Hyperchloremia: Negative: Mother, Father, Sister, Brother, Daughter and Son. Mental illness: Negative: Mother, Father, Sister, Brother, Daughter and Son. Seizure: Negative: Mother, Father, Sister, Brother, Daughter and Son. Stroke: Negative: Mother, Father, Sister, Brother, Daughter and Son. TB - Tuberculosis: Negative: Mother, Father, Sister, Brother, Daughter and Son. Digitally Signed by JOSAFAT PRASAD MD on 03/28/2022 12:08 PM [id number] Hospital Discharge instructions Patient Education 03/28/2022 13:12:04 Seizure, Adult, Njsl-es-Rpna Seizure, Adult A seizure is a sudden burst of abnormal electrical activity in the brain. Seizures usually last from 30 seconds to 2 minutes. They can cause many different symptoms. Usually, seizures are not harmful unless they last a long time. What are the causes? Common causes of this condition include: Fever or infection. Conditions that affect the brain, such as: ?A brain abnormality that you were born with. ?A brain or head injury. ?Bleeding in the brain. ?A tumor. ?Stroke. ?Brain disorders such as autism or cerebral palsy. Low blood sugar. Conditions that are passed from parent to child (are inherited). Problems with substances, such as: ?Having a reaction to a drug or a medicine. ?Suddenly stopping the use of a substance (withdrawal). In some cases, the cause may not be known. A person who has repeated seizures over time without a clear cause has a condition called epilepsy. What increases the risk? You are more likely to get this condition if you have: A family history of epilepsy. Had a seizure in the past. A brain disorder. A history of head injury, lack of oxygen at , or strokes. What are the signs or symptoms? There are many types of seizures. The symptoms vary depending on the type of seizure you have. Examples of symptoms during a seizure include: Shaking (convulsions). Stiffness in the body. Passing out (losing consciousness). Head nodding. Staring. Not responding to sound or touch. Loss of bladder control and bowel control. Some people have symptoms right before and right after a seizure happens. Symptoms before a seizure may include: Fear. Worry (anxiety). Feeling like you may vomit (nauseous). Feeling like the room is spinning (vertigo). Feeling like you saw or heard something before (sheila miranda vu). Odd tastes or smells. Changes in how you see. You may see flashing lights or spots. Symptoms after a seizure happens can include: Confusion. Sleepiness. Headache. Weakness on one side of the body. How is this treated? Most seizures will stop on their own in under 5 minutes. In these cases, no treatment is needed. Seizures that last longer than 5 minutes will usually need treatment. Treatment can include: Medicines given through an IV tube. Avoiding things that are known to cause your seizures. These can include medicines that you take for another condition. Medicines to treat epilepsy. Surgery to stop the seizures. This may be needed if medicines do not help. Follow these instructions at home: Medicines Take ageq-svo-iloienb and prescription medicines only as told by your doctor. Do not eat or drink anything that may keep your medicine from working, such as alcohol. Activity Do not do any activities that would be dangerous if you had another seizure, like driving or swimming. Wait until your doctor says it is safe for you to do them. If you live in the [place] ask your local DMV (department of [employer]) when you can drive. Get plenty of rest. Teaching others Teach friends and family what to do when you have a seizure. They should: Lay you on the ground. Protect your head and body. Loosen any tight clothing around your neck. Turn you on your side. Not hold you down. Not put anything into your mouth. Know whether or not you need emergency care. Stay with you until you are better. General instructions Contact your doctor each time you have a seizure. Avoid anything that gives you seizures. Keep a seizure diary. Write down: ?What you think caused each seizure. ?What you remember about each seizure. Keep all follow-up visits as told by your doctor. This is important. Contact a doctor if: You have another seizure. You have seizures more often. There is any change in what happens during your seizures. You keep having seizures with treatment. You have symptoms of being sick or having an infection. Get help right away if: You have a seizure that: ?Lasts longer than 5 minutes. ?Is different than seizures you had before. ?Makes it harder to breathe. ?Happens after you hurt your head. You have any of these symptoms after a seizure: ?Not being able to speak. ?Not being able to use a part of your body. ?Confusion. ?A bad headache. You have two or more seizures in a row. You do not wake up right after a seizure. You get hurt during a seizure. These symptoms may be an emergency. Do not wait to see if the symptoms will go away. Get medical help right away. Call your local emergency services (911 in the [place] Do not drive yourself to the hospital. Summary Seizures usually last from 30 seconds to 2 minutes. Usually, they are not harmful unless they last a long time. Do not eat or drink anything that may keep your medicine from working, such as alcohol. Teach friends and family what to do when you have a seizure. Contact your doctor each time you have a seizure. This information is not intended to replace advice given to you by your health care provider. Make sure you discuss any questions you have with your health care provider. Document Released: 01/25/2009 Document Revised: 10/27/2019 Document Reviewed: 10/27/2019 [employer] Patient Education 2020 [employer]. Follow Up Care 03/27/2022 11:30:57 With:Love sharpe Metamora Address: [phone] When: Unknown Comments:Skilled With:PHYSICIANMAGDA Address:Unknown When:1-2 days [facility] 08-06-2022 Note Discharge Instructions Thank you for allowing [facility] to assist you with your healthcare needs. The following is importantdischarge information regarding your hospital visit. Your Care Team PHYSICIANMAGDA Your Diagnosis possible Seizure What to do next Instructions From Your Doctor You admitted to hospital for a probable seizure and started on antiseizure medications Keppra. Neurology also spoke to you in the hospital and highly recommended a repeat MRI with contrast going forward. It is okay to obtain MRI outpatient, it is okay to be discharged at this time to return to [place] for your therapy for your previous stroke. Your other medications were were not changed, follow-up with PCP as well as take your medications as prescribed. Follow Up Appointments Follow Up with PHYSICIAN, NONE When Within 1-2 days The Following Activity and Diet Have Been Ordered for You Discharge Activity - Ordered -- NO activity restrictions, 03/28/22 11:23:00 EDT Transfer of Care Activity - Ordered -- Activity As Tolerated, 03/28/22 11:24:00 EDT Discharge Diet - Ordered -- No changes were made to your diet during your hospital stay. Please resume your pre hospitalization diet on discharge., 03/28/22 11:23:00 EDT Transfer of Care Diet - Ordered -- Type of Diet: Regular Diet, 03/28/22 11:24:00 EDT The Following Equipment Has Been Ordered for You No qualifying data available. The Following Treatments Have Been Ordered for You Discharge Labs No qualifying data available. Discharge Radiology Discharge Outpatient Radiology - Ordered -- MRI BRAIN WITH CONTRAST, Seizure, follow-up within: 2-3 weeks, Results Notify to: OLEG SOTO MD, 03/28/22 11:23:00 EDT Other Therapies No qualifying data available. Post Acute Orders Transfer of Care Code Status - Ordered -- Full Code, Constant Order Transfer of Care Orders Electronically Signed By - Ordered -- 03/28/22 11:24:00 EDT, RANDOLPH DHILLON MD Transfer of Care Prognosis - Ordered -- Fair, Patient Aware: Yes Transfer of Care Rehab Potential - Ordered -- Rehab potential chance, 03/28/22 11:24:53 EDT Someone Will Contact You Regarding These Home Health Referrals No home referrals have been ordered for you. No one will call you. Allergies NKA Medications Please ask your primary doctor or pharmacist before taking any other medication not listed, including over the counter drugs, herbal medications, vitamins and or supplements as they may interact withyour home medications. What How Much When Instructions Last Dose New levETIRAcetam (Keppra 750 mg oral tablet) 1 tab(s) by mouth Two (2) times a day Duration: 30 Days Refills: 1 Pickup at [id number] Unchanged acetaminophen (Tylenol 325 mg oral tablet) 2 tab(s) by mouth Every 4 hours as needed for Muscle pain Unchanged Al hydroxide/ Mg hydroxide/ simethicone (aluminum hydroxide/ magnesium hydroxide/ simethicone 400 mg-400 mg-40 mg/ 5 mL oral suspension) 30 Milliliter by mouth Every 6 hours as needed for indigestion Unchanged aspirin (aspirin 81 mg oral delayed release tablet) 1 tab(s) by mouth Once a day Duration: 30 Days Unchanged atorvastatin (atorvastatin 80 mg oral tablet) 1 tab(s) by mouth Once a day Duration: 30 Days Unchanged docusate (docusate sodium 100 mg oral capsule) 1 cap by mouth Two (2) times a day as needed for as needed for constipation Unchanged glucagon (glucagon 1 mg injection) 1 Milligram Intravenous Once as needed for Hypoglycemia Unchanged glycerin (glycerin adult rectal suppository) 1 suppository(ies) in the rectum Once a day as needed for as needed for constipation Unchanged hydrocortisone topical (hydrocortisone 2.5% topical cream) 1 miky(s) Topical Two (2) times a day as needed for Itching Unchanged losartan (losartan 25 mg oral tablet) 1 tab(s) by mouth Once a day Duration: 30 Days Unchanged magnesium hydroxide (Milk of Magnesia 8% oral suspension) 30 Milliliter by mouth Daily at bedtime as needed for as needed for constipation Unchanged mirtazapine (mirtazapine 15 mg oral tablet) 1 tab(s) by mouth Daily at bedtime Unchanged nystatin (nystatin 100,000 units/ mL oral suspension) 5 Milliliter by mouth Four (4) times a day Unchanged polyethylene glycol 3350 (MiraLax oral powder for reconstitution) 17 gram(s) by mouth Once a day as needed for Constipation Unchanged thiamine (thiamine 100 mg oral tablet) 1 tab(s) by mouth Once a day [id number]: [id number] [place], [place] [id number] [phone] Please take this list to your next doctor s visit. Bring all medications you take, including over the counter medications, herbals and other supplements with you to your doctor s visit. Patients and families are reminded to discard old lists and to update any records with all medication providers or retail pharmacies. Education Materials Seizure, Adult A seizure is a sudden burst of abnormal electrical activity in the brain. Seizures usually last from 30 seconds to 2 minutes. They can cause many different symptoms. Usually, seizures are not harmful unless they last a long time. What are the causes? Common causes of this condition include: Fever or infection. Conditions that affect the brain, such as: ? A brain abnormality that you were born with. ? A brain or head injury. ? Bleeding in the brain. ? A tumor. ? Stroke. ? Brain disorders such as autism or cerebral palsy. Low blood sugar. Conditions that are passed from parent to child (are inherited). Problems with substances, such as: ? Having a reaction to a drug or a medicine. ? Suddenly stopping the use of a substance (withdrawal). In some cases, the cause may not be known. A person who has repeated seizures over time without a clear cause has a condition called epilepsy. What increases the risk? You are more likely to get this condition if you have: A family history of epilepsy. Had a seizure in the past. A brain disorder. A history of head injury, lack of oxygen at , or strokes. What are the signs or symptoms? There are many types of seizures. The symptoms vary depending on the type of seizure you have. Examples of symptoms during a seizure include: Shaking (convulsions). Stiffness in the body. Passing out (losing consciousness). Head nodding. Staring. Not responding to sound or touch. Loss of bladder control and bowel control. Some people have symptoms right before and right after a seizure happens. Symptoms before a seizure may include: Fear. Worry (anxiety). Feeling like you may vomit (nauseous). Feeling like the room is spinning (vertigo). Feeling like you saw or heard something before (sheila her). Odd tastes or smells. Changes in how you see. You may see flashing lights or spots. Symptoms after a seizure happens can include: Confusion. Sleepiness. Headache. Weakness on one side of the body. How is this treated? Most seizures will stop on their own in under 5 minutes. In these cases, no treatment is needed. Seizures that last longer than 5 minutes will usually need treatment. Treatment can include: Medicines given through an IV tube. Avoiding things that are known to cause your seizures. These can include medicines that you take for another condition. Medicines to treat epilepsy. Surgery to stop the seizures. This may be needed if medicines do not help. Follow these instructions at home: Medicines Take skya-byk-vcqsaom and prescription medicines only as told by your doctor. Do not eat or drink anything that may keep your medicine from working, such as alcohol. Activity Do not do any activities that would be dangerous if you had another seizure, like driving or swimming. Wait until your doctor says it is safe for you to do them. If you live in the [place] ask your local DMV (department of [employer]) when you can drive. Get plenty of rest. Teaching others Teach friends and family what to do when you have a seizure. They should: Lay you on the ground. Protect your head and body. Loosen any tight clothing around your neck. Turn you on your side. Not hold you down. Not put anything into your mouth. Know whether or not you need emergency care. Stay with you until you are better. General instructions Contact your doctor each time you have a seizure. Avoid anything that gives you seizures. Keep a seizure diary. Write down: ? What you think caused each seizure. ? What you remember about each seizure. Keep all follow-up visits as told by your doctor. This is important. Contact a doctor if: You have another seizure. You have seizures more often. There is any change in what happens during your seizures. You keep having seizures with treatment. You have symptoms of being sick or having an infection. Get help right away if: You have a seizure that: ? Lasts longer than 5 minutes. ? Is different than seizures you had before. ? Makes it harder to breathe. ? Happens after you hurt your head. You have any of these symptoms after a seizure: ? Not being able to speak. ? Not being able to use a part of your body. ? Confusion. ? A bad headache. You have two or more seizures in a row. You do not wake up right after a seizure. You get hurt during a seizure. These symptoms may be an emergency. Do not wait to see if the symptoms will go away. Get medical help right away. Call your local emergency services (911 in the [place] Do not drive yourself to the hospital. Summary Seizures usually last from 30 seconds to 2 minutes. Usually, they are not harmful unless they last a long time. Do not eat or drink anything that may keep your medicine from working, such as alcohol. Teach friends and family what to do when you have a seizure. Contact your doctor each time you have a seizure. This information is not intended to replace advice given to you by your health care provider. Make sure you discuss any questions you have with your health care provider. Document Released: 01/25/2009 Document Revised: 10/27/2019 Document Reviewed: 10/27/2019 Elsevier Patient Education 2020 [employer] Additional Information VACCINATE! IT SAVES LIVES! Members of the community who have not yet received the COVID-19 vaccine and would like to receive it can visit one of [facility] vaccine clinics. There are many vaccine clinic locations within the [facility]. For locations and available times, please visit [email or web address] It is important to note that some COVID mobile vaccine clinics are held outdoors and may be canceled in rainy or stormy conditions. To learn more about pediatric vaccinations (ages 5-11), we invite you to visit the [facility] webpage. [email or web address] learn more about the COVID-19 vaccine, we invite you to visit the [facility] website for a list of frequently asked questions. [email or web address] [facility] Patient Portal Access Instructions: Stay connected with your healthcare team and access your personal medical information anytime with the [facility] Patient Portal.If you would like a full copy of your medical records, please contact the [facility] Medical Records Department, Wednesday through Wednesday between 8a.m. and 4:30p.m. Please follow the directions below to access the portal: 1.Access the email account you provided upon registration to the [facility].2.Look for an invitation email from [facility].3.Open the email and access the invitation link: Accept Invitation to [facility]4.Fill in the required zamarripa to create your account. Sign into [email or web address] with your username and password that you created in the above steps to stay up to date. You can then view a summary of results, a summary of your visits, and the ability to download your summaries to your computer or send the information securely to a physician. Remember that your healthcare information is confidential, so carefully consider who you will allow to register on the [facility] Patient Portal for access to your information. You can also access the [facility] Patient Portal on the [employer] miky. Simply click on Health Records under [employer] and then click on the [employer] logo. HOW TO SAFELY DISPOSE OF PRESCRIPTION MEDICATIONS Please use one of the following methods to safely dispose of your unused medications. 1.Use a drug disposal kit: the drug disposal pouch allows you to safely discard your old and unuseddrugs. Ask your nurse to give you one when you are discharged.2.Visit a local take-back location: Many local pharmacies and police departments have programs that collect old and unwanted prescriptiondrugs. Call your local pharmacy or go to [email or web address] to find one close to you.3.Make use of household items: Use cat litter or old coffee grounds to dispose medications if other options arenot available. Mix your drugs with these household products, seal them in an airtight container andthrow it into the garbage. Call [facility]: [phone] to be sure your drugs can be disposed of in this way. Some medicines may require a different approach.4.Never flush your medications down the toilet. IF YOU HAVE BEEN PRESCRIBED AN OPIOID FOR PAIN If you have been prescribed an opioid (such as hydrocodone, oxycodone or morphine), it is critical to understand the possible side effects and risks of opioid pain medications. Even when taken as directed, opioids can have several side effects including: Tolerance, meaning you might need to take more of a medication for the same pain relief. Nausea, vomiting and/or constipation. Sleepiness, dizziness, dry mouth, confusion, depression or itching. Physical dependence, meaning you have withdrawal symptoms when a medication is stopped, can develop within a few days. KNOW YOUR RESPONSIBILITIES It is important to know exactly how much and how often to take the opioid pain medications you are prescribed. Never take opioids in higher amounts or more often than prescribed. Do not combine opioids with alcohol or other drugs that cause drowsiness, such as benzodiazepines, also known as benzos, including diazepam and alprazolam, muscle relaxants or sleep aids. Never sell or share prescription opioids. This is illegal. Store opioids in a secure place and out of reach of others (including children, family, friends and visitors). The last page of this document has been signed and retained as a CHART COPY. Signatures Patient Education Materials Seizure, Adult, Rxjs-ll-Pytx Medication Leaflets My discharge plan and instructions have been reviewed and explained to me and I,MONICA SPAIN understand my current condition and have read and understand these discharge instructions. I have received a written copy of the plan/instructions. If I have questions, I am aware that I should contact my doctor. 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 Dhillon History of Present Illness 71-year-old male who was recently admitted for a stroke and discharged to rehab. He has been slowlyrecovering and the right-sided hemiparesis from his stroke has been gradually improving. While at rehab he had an episode of rhythmic twitching of his left foot that spread up his entire left side, lasting a few minutes. Short while after this he had the same exact symptoms however then further generalized to a brief tonic-clonic seizure. Afterward he was significantly fatigued. He was sent to [facility]. Of note he started Zoloft on March 25. I was contacted about his case and given the recurrentnature of the seizures on the side opposite of the stroke, I suggested we keep him overnight for observation and start Keppra. He has since returned to his previous baseline. Review of Systems Aside from what is mentioned in the HPI, there were no other pertinent positives in the patient's review of systems. Physical Exam Vitals and Measurements T: 36.4 C (Oral) TMIN: 36.4 C (Oral) TMAX: 36.8 C (Oral) HR: 79(Monitored) RR: 18 BP: 131/74 SpO2:98% HT: 177.8 cm WT: 84.5 kg BMI: 26.73 Weight Dosing Weight: 84.5 kg (03/27/22) Neurologic Exam Mental Status: Orientation: oriented to person, [facility], and date Language: normal fluency, normal comprehension Speech: Mild dysarthria Cranial Nerves: Pupils: 4mm -> 2mm bilaterally Visual Zamarripa: full to confrontation bilaterally Fundus: not well visualized as the patient wasn't tolerating the light and having trouble fixating CN III, IV, : EOMI. No nystagmus CN V: normal light touch and temp sensation in V1, V2, V3, bilaterally. CN VII: Right facial weakness CN VIII: auditory acuity intact to bedside testing Sensation: Light touch: intact in all 4 extremities Motor: Involuntary movements: none Strength: LUE: 5/5 proximally, 5/5 distally RUE: 3+/5 proximally, 3+/5 distally LLE: 5/5 proximally, 5/5 distally RLE: 4/5 proximally, 5-/5 distally Reflexes: R L B 3 2 BR 3 2 P 3 2 Toes up down Coordination: Wupzpc-nhow-dlzaqs movements intact on the left Lab Results 03/28 06:33 WBC: 8.1 Hgb: 13.4 Hct: 38.1 L Platelet: 319 Neutrophil %: 52.1 Glucose Level: 94 Sodium Level: 144 Potassium Level: 4.0 BUN: 15.0 Creatinine Lvl (s): 0.77 03/27 22:03 WBC: 9.2 Hgb: 13.4 Hct: 38.0 L Platelet: 339 Neutrophil %: 54.4 Protime: 13.3 PT International Ratio: 1.1 Glucose Level: 109 Sodium Level: 144 Potassium Level: 3.7 BUN: 18.0 Creatinine Lvl (s): 0.83 03/27 12:37 WBC: 8.5 Hgb: 14.7 Hct: 41.3 Platelet: 370 Neutrophil %: 65.3 Glucose Level: 122 H Sodium Level: 138 Potassium Level: 3.6 BUN: 19.0 Creatinine Lvl (s): 0.92 Imaging Results and Diagnostics XR Chest 1 View Result Date: March 28, 2022 Verified By: PALOMO JAQUEZ MD CLINICAL STATEMENT: IMPRESSION: No acute process. I have personally reviewed the images of this examination and agree with theresident's findings and interpretation. XR Chest 1 View Result Date: March 27, 2022 Verified By: HELENA DÍAZ MD CLINICAL STATEMENT: IMPRESSION: No acute cardiopulmonary abnormality is seen. CT Head or Brain w/o Contrast Result Date: March 27, 2022 Verified By: ANTOINE YIN MD CLINICAL STATEMENT: IMPRESSION: No significant interval change. Assessment/Plan Seizure Recent stroke The description of his clinical events is consistent with a focal- onset seizure (clinically starting in the left foot). However, his stroke is unlikely to be the seizure focus given it was in the left hemisphere, subcortically. On his brain MRI wo from a 03/12 there were only chronic changes aside from the stroke and his head CT this admission was unrevealing. We did discuss that for a further thorough evaluation we should repeat the brain MRI with contrast and attention to the right hemisphere, in order to fully exclude any sort of lesion such as neoplasm. However, he was essentially refusing another brain MRI despite the risk of missing something such as that. Would suggest he be monitored clinically in the near future for any further neurologic symptoms, with a low threshold for checking a another brain MRI w/wo contrast if further symptoms arise. Otherwise, further inpatient plans can be held for now. Would continue Keppra 750mg BID. Common and serious side effects were discussed.I advised him to not drive until being 6 months free of any seizure and cleared by outpatient physicians. He would also need a formal driving evaluation after his stroke recovery if driving were to be considered. He can follow-up with [facility] as previously planned last admission. A total of 60 minutes was spent on this case (including reviewing the chart, taking a history, examining the patient, generating a diagnosis/plan, and discussing with the patient and the primary team.) Problem List/Past Medical History Ongoing Alcoholism /alcohol abuse High blood pressure Hyperlipidemia Ischemic stroke Kidney stone Pain Historical No qualifying data Procedure/Surgical History Lithotripsy Medications Inpatient acetaminophen, 650 mg= 2 tab(s), Oral, q4h, PRN Al hydroxide/Mg hydroxide/simethicone, 30 mL, Oral, q6h, PRN aspirin 81 mg oral delayed release tablet, 81 mg= 1 tab(s), Oral, qDay atorvastatin, 80 mg= 1 tab(s), Oral, qDay Colace, 100 mg= 1 cap(s), Oral, BID, PRN DuoNeb, 3 mL, Inhalation, q4hRT, PRN heparin 5000 units/mL injection, 5000 unit(s)= 1 mL, Subcutaneous, q8h HumaLOG 100 units/mL subcutaneous solution, 0-10 unit(s)/dose, Subcutaneous, TIDAC hydrocortisone 2.5% topical cream, 1 miky(s), Topical, BID, PRN Keppra losartan, 25 mg= 1 tab(s), Oral, qDay melatonin, 3 mg= 1 tab(s), Oral, qHS, PRN Milk of Magnesia, 2.4 gram(s), Oral, qHS, PRN Miralax Powder Packet, 17 gram(s)= 15 mL, Oral, qDay, PRN mirtazapine, 15 mg= 1 tab(s), Oral, qHS nystatin, [id number] unit(s)= 5 mL, Oral, QID thiamine, 100 mg= 1 tab(s), Oral, qDay Tylenol, 650 mg= 2 tab(s), Oral, q6hWA Home aluminum hydroxide/magnesium hydroxide/simethicone 400 mg-400 mg-40 mg/5 mL oral suspension, 30 mL,Oral, q6h, PRN aspirin 81 mg oral delayed release tablet, 81 mg= 1 tab(s), Oral, qDay, 3 refills atorvastatin 80 mg oral tablet, 80 mg= 1 tab(s), Oral, qDay, 2 refills docusate sodium 100 mg oral capsule, 100 mg= 1 cap(s), Oral, BID, PRN glucagon 1 mg injection, 1 mg, Intravenous, Once, PRN glycerin adult rectal suppository, 1 supp, Rectal, qDay, PRN hydrocortisone 2.5% topical cream, 1 miky(s), Topical, BID, PRN Keppra 750 mg oral tablet, 750 mg= 1 tab(s), Oral, BID, 1 refills losartan 25 mg oral tablet, 25 mg= 1 tab(s), Oral, qDay, 2 refills Milk of Magnesia 8% oral suspension, 2.4 gram(s)= 30 mL, Oral, qHS, PRN MiraLax oral powder for reconstitution, 17 gram(s), Oral, qDay, PRN mirtazapine 15 mg oral tablet, 15 mg= 1 tab(s), Oral, qHS nystatin 100,000 units/mL oral suspension, 768807 unit(s)= 5 mL, Oral, QID thiamine 100 mg oral tablet, 100 mg= 1 tab(s), Oral, qDay Tylenol 325 mg oral tablet, 650 mg= 2 tab(s), Oral, q4h, PRN Allergies NKA Social History Smoking Status - 08/07/2014 Never smoker Alcohol Use: Past., 03/01/2022 Substance Abuse Use: Never., 03/01/2022 Tobacco Nicotine Use: Never (less than 100 in lifetime)., 03/01/2022 Family History Asthma: Negative: Mother, Father, Sister, Brother, Daughter and Son. Cancer: Negative: Mother, Father, Sister, Brother, Daughter and Son. Diabetes mellitus: Negative: Mother, Father, Sister, Brother, Daughter and Son. HIV: Negative: Mother, Father, Sister, Brother and Son. HTN - Hypertension: Negative: Mother, Father, Sister, Brother, Daughter and Son. Heart disease: Negative: Mother, Father, Sister, Brother, Daughter and Son. Hepatitis: Negative: Mother, Father, Sister, Brother, Daughter and Son. Hyperchloremia: Negative: Mother, Father, Sister, Brother, Daughter and Son. Mental illness: Negative: Mother, Father, Sister, Brother, Daughter and Son. Seizure: Negative: Mother, Father, Sister, Brother, Daughter and Son. Stroke: Negative: Mother, Father, Sister, Brother, Daughter and Son. TB - Tuberculosis: Negative: Mother, Father, Sister, Brother, Daughter and Son. Digitally Signed by JOSAFAT PRASAD MD on 03/28/2022 12:08 PM [id number] Note ORIGINAL EXAMINATION: ONE XRAY VIEW OF THE CHEST 03/28/2022 7:42 am COMPARISON: Chest x-ray 03/27/2022, 03/10/2022 HISTORY: ORDERING SYSTEM PROVIDED HISTORY: Reason for Exam: Chest Pain FINDINGS: The cardiomediastinal silhouette is enlarged but stable. No consolidation or vascular congestion. No pleural effusion or pneumothorax. Multiple left-sided remote rib fractures are noted. IMPRESSION: No acute process. I have personally reviewed the images of this examination and agree with the resident's findings and interpretation. Interpreted by: Palomo Jaquez MD Preliminary Report By: Keaton Moss Electronically signed By Palomo Jaquez MD Dictated Date: 03/28/2022 7:46:07 AM Prelim Date: 03/28/2022 8:06:05 AM Sign Date: 03/28/2022 8:06:05 AM Ordering Provider: [facility]08-06-2022 Note ORIGINAL EXAMINATION: ONE XRAY VIEW OF THE CHEST 03/28/2022 7:42 am COMPARISON: Chest x-ray 03/27/2022, 03/10/2022 HISTORY: ORDERING SYSTEM PROVIDED HISTORY: Reason for Exam: Chest Pain FINDINGS: The cardiomediastinal silhouette is enlarged but stable. No consolidation or vascular congestion. No pleural effusion or pneumothorax. Multiple left-sided remote rib fractures are noted. IMPRESSION: No acute process. I have personally reviewed the images of this examination and agree with the resident's findings and interpretation. Interpreted by: Palomo Jaquez MD Preliminary Report By: Keaton Moss Electronically signed By Palomo Jaquez MD Dictated Date: 03/28/2022 7:46:07 AM Prelim Date: 03/28/2022 8:06:05 AM Sign Date: 03/28/2022 8:06:05 AM Ordering Provider: [facility]08-05-2022 History and physical note Date of Service 03/27/2022 Chief Complaint seizure History of Present Illness Patient is a is a 71-year-old male with past medical history of ischemic stroke (3 weeks ago), alcoholism alcohol abuse, hypertension, hyperlipidemia, who presented in his rehab facility with seizure-like activity. Stroke started in patient's left foot and gradually krista to encompass the entire body consistent with simple partial seizure. Patient endorses seizure lasting 10 minutes and did not lose consciousness. No tongue biting or bowel incontinence was noted. On current speaking patient has a bit of slurring which he says was pronounced after stroke 3 weeks ago. Per rehab medicine, patienthad jerking and seizure activity last night followed by jerking activities deep breathing snoring and altered mental status this morning. Currently, he endorses lack of appetite and not eating for the past 3 days. On top of this he also endorses bright red blood per rectum and slight epigastric abdominal pain. Review of Systems Constitutional: Pleasant to talk with, slightly difficult in understanding with slurring of speech Eyes: no vision trouble Ears, Nose, Mouth & Throat: difficulty in exhale w/stroke, no headache, vertigo or rhinorrhea Cardiovascular: 5/10 chest pain constant, not worse with movement, no diaphoresis, syncope Respiratory: no SOB, wheezing or coughing Gastrointestinal: decreased appetite for past 3 days, history of constipation Musculoskeletal: decreased movement with hemiparesis Neurological: history of stroke 3 weeks prior, left hemiparesis Psychiatric: mood seems depressed on conversation Physical Exam Vitals and Measurements T: 36.3 C (Oral) HR: 95(Apical) RR: 15 BP: 182/78 SpO2: 93% No qualifying data available. General Appearance: Alert and interactive Head: NC/AT HEENT: EOMI, PERRL Neck: No lymphadenopathy Cardiac: tachycardia, Regular rhythm, no m/r/g Lungs: CTAB, no rhonchi wheezing or crackles Abdomen: increased BS Musculoskeletal: Full ROM on left side. minimal movement of RUE Extremities:no clubbing or edema Neurological: 1/5 movement of RUE and RLE, CN 2-12 intact Skin: warm and no tenting Lab Results 03/27 12:37 WBC: 8.5 Hgb: 14.7 Hct: 41.3 Platelet: 370 Neutrophil %: 65.3 Glucose Level: 122 H Sodium Level: 138 Potassium Level: 3.6 BUN: 19.0 Creatinine Lvl (s): 0.92 Imaging Results and Diagnostics XR Chest 1 View Result Date: March 27, 2022 Verified By: HELENA DÍAZ MD CLINICAL STATEMENT: IMPRESSION: No acute cardiopulmonary abnormality is seen. CT Head or Brain w/o Contrast Result Date: March 27, 2022 Verified By: ANTOINE YIN MD CLINICAL STATEMENT: IMPRESSION: No significant interval change. EKG EC03/27/22: SINUS TACHYCARDIA...rate> 99 BORDERLINE LEFT AXIS DEVIATION...QRS axis (-15,-29) Electronic Signature: SEEMA JOSHI MD 03/27/2022 13:19:18 Assessment/Plan Problems: 1. Seizure 2. Stroke Hx 3. Abdominal Pain 4. Alcoholism/ Alcohol Abuse 5. Hypertension 6. Hyperlipidemia Seizure visualized focal seizure at foot; most likely simple partial seizure - Given Keppra 1500 mg loading dose, followed by 750 mg BID for maintenance - Labs pending Ammonia, CPK, TSH, serial Troponins/EKG, pro-BNP level - Swallow Evaluation for diet - Monitor movement and ambulate as tolerated - PT/OT provided - Will most likely d/c back to rehab facility Ischemic Stroke Hx 3 weeks prior causing Right sided hemiparesis, in Rehab for physical therapy - Statin restarted - Aspirin restarted - Repeat EKG/serial Troponins for 5/10 chest pain - PT/OT for movement - Monitor for worsening Neuro-cardiogenic abnormalities Abdominal Pain Epigastric tenderness upon palpation with BRBPR, no N/V - Consider PPI - Avoid NSAIDS, consider holding coagulation at this time to decrease risk of bleed - Consider Anti-spasmodic for pain - If pain continues, consider CT exam for possible diverticulosis for ischemic picture Alcohol/ Alcohol Abuse documented history, no signs for withdrawal - Thiamine - Monitor for withdrawal at this time Hypertension blood pressure currently 182/78 - Losartan restarted Hyperlipidemia - Continue Statin DVT Prophylaxis: SubQ heparin 5000 units Code: Full Code Problem List/Past Medical History Ongoing Alcoholism /alcohol abuse High blood pressure Hyperlipidemia Ischemic stroke Kidney stone Pain Historical No qualifying data Procedure/Surgical History Lithotripsy Medications Home Medications (14) Active aluminum hydroxide/magnesium hydroxide/simethicone 400 mg-400 mg-40 mg/5 mL oral suspension 30 mL, PRN, Oral, q6h aspirin 81 mg oral delayed release tablet 81 mg = 1 tab(s), Oral, qDay atorvastatin 80 mg oral tablet 80 mg = 1 tab(s), Oral, qDay docusate sodium 100 mg oral capsule 100 mg = 1 cap(s), PRN, Oral, BID glucagon 1 mg injection 1 mg, PRN, Intravenous, Once glycerin adult rectal suppository 1 supp, PRN, Rectal, qDay hydrocortisone 2.5% topical cream 1 miky(s), PRN, Topical, BID losartan 25 mg oral tablet 25 mg = 1 tab(s), Oral, qDay Milk of Magnesia 8% oral suspension 2.4 gram(s) = 30 mL, PRN, Oral, qHS MiraLax oral powder for reconstitution 17 gram(s), PRN, Oral, qDay mirtazapine 15 mg oral tablet 15 mg = 1 tab(s), Oral, qHS nystatin 100,000 units/mL oral suspension 500,000 unit(s) = 5 mL, Oral, QID thiamine 100 mg oral tablet 100 mg = 1 tab(s), Oral, qDay Tylenol 325 mg oral tablet 650 mg = 2 tab(s), PRN, Oral, q4h Allergies NKA Social History Smoking Status - 08/07/2014 Never smoker Alcohol Use: Past., 03/01/2022 Substance Abuse Use: Never., 03/01/2022 Tobacco Nicotine Use: Never (less than 100 in lifetime)., 03/01/2022 Family History Asthma: Negative: Mother, Father, Sister, Brother, Daughter and Son. Cancer: Negative: Mother, Father, Sister, Brother, Daughter and Son. Diabetes mellitus: Negative: Mother, Father, Sister, Brother, Daughter and Son. HIV: Negative: Mother, Father, Sister, Brother and Son. HTN - Hypertension: Negative: Mother, Father, Sister, Brother, Daughter and Son. Heart disease: Negative: Mother, Father, Sister, Brother, Daughter and Son. Hepatitis: Negative: Mother, Father, Sister, Brother, Daughter and Son. Hyperchloremia: Negative: Mother, Father, Sister, Brother, Daughter and Son. Mental illness: Negative: Mother, Father, Sister, Brother, Daughter and Son. Seizure: Negative: Mother, Father, Sister, Brother, Daughter and Son. Stroke: Negative: Mother, Father, Sister, Brother, Daughter and Son. TB - Tuberculosis: Negative: Mother, Father, Sister, Brother, Daughter and Son. Immunizations No qualifying data available. Code Status No qualifying data available. Digitally Signed by NERY RENO MD on 03/27/2022 07:47 PM Digitally Signed by RANDOLPH DHILLON MD on 03/28/2022 08:05 AM [facility] [id number] Note [facility] TEACHING SERVICE ATTENDING PHYSICIAN ADMISSION NOTE I was present for, and personally supervised, the delong components of the patient's admission evaluation and management by the [facility] house staff today. I have examined the patient and reviewed all diagnostic data. I have reviewed the History and Physical of the resident physician. It documents the history obtained, examination performed, and the diagnostic testing results compiled by him/her. In addition, it describes the patient's initial treatment plan. Additional comments, if any: Seen in the ED just a short while ago. My first interaction with this unfortunate, very pleasant gentleman. Equally pleasant son Claudio and [id number] were present. From Mr. Spain's description, it sounds like he may well have had a simple partial seizure yesterday. Please refer to Dr. Carter's note from 1251 today. This is consistent much more so with a generalized seizure and in fact Mr. Spain tells me I don't remember that event. When seen, he was alert, oriented, stable hemodynamically, and in no acute distress. He is being admitted to observation status. Keppra is being administered empirically. EEG and neurology service review would be appropriate. He probably does not need any further imaging in light of his recent hospitalization for stroke. This note was transcribed via voice recognition software and may contain typographical errors. Randolph Dhillon MD, [facility], [facility] Digitally Signed by RANDOLPH DHILLON MD on 03/27/2022 06:00 PM [id number] Evaluation + Plan noteExtracted from: Title:History and Physical Author:NERY RENO MD Date:03/27/22 Problems: 1. Seizure 2. Stroke Hx 3. Abdominal Pain 4. Alcoholism/ Alcohol Abuse 5. Hypertension 6. Hyperlipidemia Seizure visualized focal seizure at foot; most likely simple partial seizure - Given Keppra 1500 mg loading dose, followed by 750 mg BID for maintenance - Labs pending Ammonia, CPK, TSH, serial Troponins/EKG, pro-BNP level - Swallow Evaluation for diet - Monitor movement and ambulate as tolerated - PT/OT provided - Will most likely d/c back to rehab facility Ischemic Stroke Hx 3 weeks prior causing Right sided hemiparesis, in Rehab for physical therapy - Statin restarted - Aspirin restarted - Repeat EKG/serial Troponins for 10 chest pain - PT/OT for movement - Monitor for worsening Neuro-cardiogenic abnormalities Abdominal Pain Epigastric tenderness upon palpation with BRBPR, no N/V - Consider PPI - Avoid NSAIDS, consider holding coagulation at this time to decrease risk of bleed - Consider Anti-spasmodic for pain - If pain continues, consider CT exam for possible diverticulosis for ischemic picture Alcohol/ Alcohol Abuse documented history, no signs for withdrawal - Thiamine - Monitor for withdrawal at this time Hypertension blood pressure currently 182/78 - Losartan restarted Hyperlipidemia - Continue Statin DVT Prophylaxis: SubQ heparin 5000 units Code: Full Code Diagnostic Tests Pending * Stool for Occult Blood (Lab) 03/27/22 [facility] 08-05-2022 Note ORIGINAL EXAMINATION: ONE XRAY VIEW OF THE CHEST03/27/2022 12:54 pm COMPARISON: March 10, 2022 HISTORY: Reason for Exam: chest pain FINDINGS: A single portable AP view of the chest was obtained. The cardiomediastinal silhouette is exaggerated. No focal consolidation, pleural effusion or pneumothorax is seen. Healed left-sided rib fractures are identified. IMPRESSION: No acute cardiopulmonary abnormality is seen. Interpreted by: Helena Díaz MD Preliminary Report By: Helena Díaz MD Electronically signed By Helena Díaz MD Dictated Date: 03/27/2022 1:17:45 PM Prelim Date: 03/27/2022 1:19:45 PM Sign Date: 03/27/2022 1:19:45 PM Ordering Provider: [facility]08-05-2022 Note ORIGINAL HISTORY: Seizure COMPARISON: 13 days previously TECHNIQUE: Routine non-contrast head CT with sagittal and coronal reconstructions This exam was performed according to our departmental dose optimization program, and includes the following measures where applicable: automated exposure control, adjustment of the mAs and/or kVp according to patient size and/or exam, and an iterative reconstruction algorithm. FINDINGS: The ventricles and sulci are normal in size and configuration. There are no abnormal intra or extra-axial fluid collections. There is moderate irregular decreased attenuation in the cerebral white matter; castaneda-white matter differentiation is maintained. The calvaria and the bones of the base of the skull are intact. IMPRESSION: No significant interval change. Interpreted by: Antoine Yin MD Preliminary Report By: Antoine Yin MD Electronically signed By Antoine Yin MD Dictated Date: 03/27/2022 1:01:32 PM Prelim Date: 03/27/2022 1:03:24 PM Sign Date: 03/27/2022 1:03:24 PM Ordering Provider: [facility]08-05-2022 Note ORIGINAL HISTORY: Seizure COMPARISON: 13 days previously TECHNIQUE: Routine non-contrast head CT with sagittal and coronal reconstructions This exam was performed according to our departmental dose optimization program, and includes the following measures where applicable: automated exposure control, adjustment of the mAs and/or kVp according to patient size and/or exam, and an iterative reconstruction algorithm. FINDINGS: The ventricles and sulci are normal in size and configuration. There are no abnormal intra or extra-axial fluid collections. There is moderate irregular decreased attenuation in the cerebral white matter; castaneda-white matter differentiation is maintained. The calvaria and the bones of the base of the skull are intact. IMPRESSION: No significant interval change. Interpreted by: Antoine Yin MD Preliminary Report By: Antoine Yin MD Electronically signed By Antoine Yin MD Dictated Date: 03/27/2022 1:01:32 PM Prelim Date: 03/27/2022 1:03:24 PM Sign Date: 03/27/2022 1:03:24 PM Ordering Provider: [facility]08-05-2022 Physical medicine and rehab Progress note Date of Service 03/27/2022 Chief Complaint Stroke Subjective 71-year-old male seen today in follow-up. Case discussed with nursing and therapy staff. Nursing reports last evening with some jerking and seizure activity patient was lucid following that. Saw patient this morning. Was called into the room later in the morning with evidence of seizure activity with some jerking activities deep breathing snoring and altered mental status. Patient unable to communicate with me but no respiratory distress and vitals remained stable. 911 was called and patient transferred to the emergency department . Had been initiated on Zoloft this was discontinued. Previously making slow steady progress in acute rehab with goal discharge home at a [facility] assist mobility Objective Vitals and Measurements T: 37.4 C (Oral) TMIN: 36.6 C (Temporal Artery) TMAX: 37.4 C (Oral) HR: 120 RR: 32 BP: 212/88 SpO2:96% Intake and Output 7AM Yesterday to 7AM Today Intake and Output (Last 24 hours) Intake Supplement Intake 437.00 Output Total Summary Total Intake 437.00 Total Output 0.00 Fluid Balance 437.00 Physical Exam General Appearance: Alert and oriented 3 no apparent distress Head: Normocephalic no evidence of trauma EENT: Pupils equal and reactive to light and accommodation no erythema. Ears with no external lesions or discharge. Nose clear nares patent no discharge. Throat normal healthy dentition no redness orerythema. Neck: Trachea midline. No lymphatic adenopathy Cardiac: Regular rate and rhythm, no rubs or murmurs Lungs: Clear to auscultation, no adventitious sounds, good aeration Abdomen: Soft nontender no organomegaly or rebound positive bowel sounds Musculoskeletal: Intact range of motion no erythema no polyarthritic changes Extremities: No edema. Negative Homans sign Neurological: Right hemiparesis to right arm 4 - right leg. Right facial weakness. Dysarthric speech. Skin: Intact without rashes or erythema Psychiatric: Mood good. No anxiety depression Weight Dosing Weight: 80.9 kg (03/15/22) Medications Medications (17) Active Scheduled: (7) aspirin 81 mg EC 81 mg 1 tab(s), Oral, qDay atorvastatin 80 mg tablet 80 mg 1 tab(s), Oral, qDay folic acid 0.4 mg tablet 0.8 mg 2 tab(s), Oral, qDay losartan 25 mg tablet 25 mg 1 tab(s), Oral, qDay mirtazapine 15 mg tablet 15 mg 1 tab(s), Oral, qHS nystatin susp 100,000 units/mL 5 mL UD 500,000 unit(s) 5 mL, Swish & Swallow, QID thiamine (w/calcium) 100 mg tablet 100 mg 1 tab(s), Oral, qDay Continuous: (0) PRN: (10) acetaminophen 325 mg Tablet 650 mg 2 tab(s), Oral, q4h Al hydrox/Mg hydrox/simethicone 200-200-20 mg/5 mL Susp UD 30 mL, Oral, q6h dextrose 50% Solution Disp syringe 50 mL 12.5 gram(s) 25 mL, IV Push, AsDirected docusate sodium 100 mg Capsule 100 mg 1 cap(s), Oral, BID glucagon recombinant 1 mg 1 mg 1 mL, Intramuscular, AsDirected glucose 4 gm Chewable 16 gram(s) 4 tab(s), Chewed, AsDirected glycerin adult Suppository 1 supp, Rectal, Daily hydrocortisone topical 2.5% Cream 1 miky, Topical, BID magnesium hydroxide 8% Suspension 30 mL UD 30 mL, Oral, qHS polyethylene glycol 3350 - UD packet 17 gram(s) 15 mL, Oral, qDay Lab Results No 36 Hour Lab Data EKG No qualifying data available. Assessment/Plan 1. Ischemic stroke Right hemiparesis. Plan continue acute rehab physical occupational and speech- language therapy 2. Alcoholism /alcohol abuse Continue thiamine and folate 3. High blood pressure Follow vitals 4. Hyperlipidemia Orders: Transfer to [place] ED Weight New onset seizure. Emergency department evaluation Time Spent 25 minutes Digitally Signed by LEVON CARTER DO on 03/27/2022 12:54 PM [place] [id number] Note ORIGINAL EXAMINATION: ONE XRAY VIEW OF THE CHEST03/27/2022 12:54 pm COMPARISON: March 10, 2022 HISTORY: Reason for Exam: chest pain FINDINGS: A single portable AP view of the chest was obtained. The cardiomediastinal silhouette is exaggerated. No focal consolidation, pleural effusion or pneumothorax is seen. Healed left-sided rib fractures are identified. IMPRESSION: No acute cardiopulmonary abnormality is seen. Interpreted by: Helena Díaz MD Preliminary Report By: Helena Díaz MD Electronically signed By Helena Díaz MD Dictated Date: 03/27/2022 1:17:45 PM Prelim Date: 03/27/2022 1:19:45 PM Sign Date: 03/27/2022 1:19:45 PM Ordering Provider: [facility]08-05-2022 Nurse Progress note REVIEW FAXED TO [employer]. Digitally Signed by GILMER Levi on 03/27/2022 09:35 AM Lorin [id number] Nurse Progress note Patient found laying on the floor. He said his chair had slipped out from under him and that his left leg started to shake when he tried to stand up. No injuries noted. Patient is at his neurologicalbaseline. Physician notified at this time. Digitally Signed by Agapito Boyd RN on 03/26/2022 06:10 PM Lorin [id number] Nurse Progress note Nursing GG Entered On: 03/26/2022 17:30 EDT Performed On: 03/26/2022 17:30 EDT by Iris Irving RN Nursing GG's OT GG Grid Eating : Set up & Clean up Iris Irving RN - 03/26/2022 17:30 EDT Digitally Signed by Iris Irving RN on 03/26/2022 05:30 PM Lorin [id number] Nurse Progress note Nursing GG Entered On: 03/26/2022 10:17 EDT Performed On: 03/26/2022 10:17 EDT by Iris Irving RN Nursing GG's OT GG Grid Eating : Independent Oral Hygiene : Set up & Clean up Iris Irving RN - 03/26/2022 10:17 EDT Digitally Signed by Iris Irving RN on 03/26/2022 10:17 AM Lorin [id number] Physical medicine and rehab Progress note Rehab Note Chief Complaint: Seeing this patient for evaluation of therapy, CVA and right- sided weakness History of Present Illness: Seeing this patient for evaluation of therapy, CVA and right-sided weakness. Patient participates in acute inpatient rehabilitation with PT/OT/ST services. Patient has past medical history significant for hypertension, hyperlipidemia, alcohol abuse and medical noncompliance. 71-year-old male admitted with right-sided upper/lower extremity weakness and slurred speech, hypertensive, right facial droop. Patient had CT of the head/neck without contrast, was negative no intracranial bleed. CT angiography head and neck showed right A2 segment occlusion. MRI revealed stroke out of window for tPA. Discussed with nursing. Medications reviewed. Tentative discharge date 04/07. Patient sitting up in wheelchair, working with speech therapy. Patient denies any uncontrolled pain or discomfort. Medications (18) Active Scheduled: (8) aspirin 81 mg EC 81 mg 1 tab(s), Oral, qDay atorvastatin 80 mg tablet 80 mg 1 tab(s), Oral, qDay folic acid 0.4 mg tablet 0.8 mg 2 tab(s), Oral, qDay losartan 25 mg tablet 25 mg 1 tab(s), Oral, qDay mirtazapine 15 mg tablet 7.5 mg 0.5 tab(s), Oral, qHS nystatin susp 100,000 units/mL 5 mL UD 500,000 unit(s) 5 mL, Swish & Swallow, QID sertraline 25 mg tablet 25 mg 1 tab(s), Oral, qHS thiamine (w/calcium) 100 mg tablet 100 mg 1 tab(s), Oral, qDay Continuous: (0) PRN: (10) acetaminophen 325 mg Tablet 650 mg 2 tab(s), Oral, q4h Al hydrox/Mg hydrox/simethicone 200-200-20 mg/5 mL Susp UD 30 mL, Oral, q6h dextrose 50% Solution Disp syringe 50 mL 12.5 gram(s) 25 mL, IV Push, AsDirected docusate sodium 100 mg Capsule 100 mg 1 cap(s), Oral, BID glucagon recombinant 1 mg 1 mg 1 mL, Intramuscular, AsDirected glucose 4 gm Chewable 16 gram(s) 4 tab(s), Chewed, AsDirected glycerin adult Suppository 1 supp, Rectal, Daily hydrocortisone topical 2.5% Cream 1 miky, Topical, BID magnesium hydroxide 8% Suspension 30 mL UD 30 mL, Oral, qHS polyethylene glycol 3350 - UD packet 17 gram(s) 15 mL, Oral, qDay Social history: Social support: Lives alone Home set-up: Single level home, first-floor bedroom/bathroom Barriers to discharge: Time since onset, safety awareness, past medical history Review of Systems: General: Appetite is good Respiratory: Denies shortness of breath, denies cough Cardiovascular: Denies chest pain, denies palpitations Gastrointestinal: Abdomen soft, non tender, non distended. Bowel sounds x 4. Genitourinary: Denies suprapubic pain or tenderness, no dysuria Musculoskeletal: No uncontrolled pain. Right-sided weakness Psychiatric: No reported change in cognition Vitals Signs(Last 24 hrs)__Last Charted Minimum Maximum Temp36.9(MAR 25 07:38)36.9(MAR 25 07:38)36.9(MAR 25 07:38) Heart Rate88(MAR 26 03:03)88(MAR 26 03:03)94(MAR 25 07:38) Resp Rate18(MAR 26 03:03)16(MAR 25 16:22)18(MAR 25 07:38) REW997(MAR 26 03:03)124(MAR 26 03:03)132(MAR 25 07:38) DBP60(MAR 26 03:03)60(MAR 26 03:03)74(MAR 25 07:38) Physical Exam: General: No acute distress. Respiratory: Lungs are clear Cardiovascular: Regular rate and rhythm Gastrointestinal: Abdomen is soft nontender nondistended. Bowel sounds normal x4. Arterial: 1/4 distal pulses bilateral lower extremities Edema: Trace edema bilateral lower extremities. No calf tenderness. Musculoskeletal: 4/5 left upper extremity strength 0/5 right upper extremity strength Trace proximal strength right arm 4+ /5 left lower extremity strength 4/5 right lower extremity strength Decreasing grasp bilaterally Decreased shoulder range of motion bilaterally Spinal Curvatures: Normal. No spinal or paraspinal tenderness Polyarthritis Weight bearing status/transfers/ADLs: Weight bearing as tolerated. Ambulated 35 feet. Partial/moderate assist walk 10 feet. Max assist lying to sitting on side of bed. Partial/moderate assist chair/bed to chair transfer. Partial/moderate assist with eating. Partial/moderate assist with grooming routine. Supervision/touch assist upper body dressing. Partial/moderate assist lower body dressing. Partial/moderate assist putting on/taking off footwear. Partial/moderate assist with bathing. Partial/moderate assist with toilet transfer. Partial/moderate assist with toilet hygiene. Skin: Intact Neurological: Sensation intact. Bilateral upper extremity reflexes 1/4. Bilateral lower extremity reflexes 1/4. Psychiatric: Alert, pleasant, and cooperative. Assessment: Stroke with right hemiparesis. Dysarthria. Hypertension. Alcohol abuse. Adjustment to disability with depressed mood. Plan: Low-dose Zoloft initially initiated. Plan increased dose next week. Continue acute with PT OTspeech therapy services. Obliteration allowed and slow. Was living alone prior to admission. Anticipate assistance needs for home- going. Current estimated discharge date April 07 Risks/benefits of meds, treatments considered. Therapy notes reviewed. Discussed with staff. PM/ reviewed and unchanged Note: This dictation was created with assistance of voice recognition software. Phonic and/or minorgrammatical errors may exist. Allison Watson RN, am scribing for, and in the presence of Dr. Frank CAGLE. IDr. Frank DO , personally performed the services described in this documentation, as described by Allison Torres RN in my presence and it is both accurate and complete. Digitally Signed by LEVON CARTER DO on 03/27/2022 07:50 AM Lorin [id number] Nurse Progress note Nursing GG Entered On: 03/25/2022 14:43 EDT Performed On: 03/25/2022 14:43 EDT by Maureen Johns RN Nursing GG's OT GG Grid Eating : Independent Maureen Johns RN - 03/25/2022 14:43 EDT Digitally Signed by Maureen Johns RN on 03/25/2022 02:43 PM Lorin [id number] Physical medicine and rehab Progress note Date of Service 03/25/22 Chief Complaint Right body stroke Subjective Patient is a 71 -year-old male seen today in follow-up. Case discussed in team staffing. Weekly rehab report is reviewed. Case discussed with family. All questions are answered. Plan is to continue acute rehab with PT OT and speech-language therapy services. Continue to work on gait training range of motion strengthening ADLs self-care speech-language and dysphagia therapy. Shoulder substantial assist with therapy transfers elevation and gait. Partial upper body ADLs and self-care. Substantial lower. Performance inconsistent. Regular diet. Dysarthric speech. Mild neurocognitive deficits. poor safety awareness. Goal is for discharge home at a modified independent level with probable home care services. Plan discharge date 2 weeks Barriers to discharge: Right body weakness. Poor Awareness. Trace right arm movement For further details, please see electronic team staffing note Objective Vitals and Measurements T: 36.9 C (Oral) TMIN: 36.8 C (Temporal Artery) TMAX: 37.1 C (Temporal Artery) HR: 94(Apical) RR: 18 BP: 132/74 SpO2: 96% Intake and Output 7AM Yesterday to 7AM Today Intake and Output (Last 24 hours) Intake Supplement Intake 237.00 Output Total Summary Total Intake 237.00 Total Output 0.00 Fluid Balance 237.00 Physical Exam General Appearance: Alert and oriented 3 no apparent distress Head: Normocephalic no evidence of trauma EENT: Pupils equal and reactive to light and accommodation no erythema. Ears with no external lesions or discharge. Nose clear nares patent no discharge. Throat normal healthy dentition no redness orerythema. Neck: Trachea midline. No lymphatic adenopathy Cardiac: Regular rate and rhythm, no rubs or murmurs Lungs: Clear to auscultation, no adventitious sounds, good aeration Abdomen: Soft nontender no organomegaly or rebound positive bowel sounds Musculoskeletal: Intact range of motion no erythema no polyarthritic changes Extremities: No edema. Negative Homans sign Neurological: Right hemiparesis with increased tone. Skin: Intact without rashes or erythema Psychiatric: Mood depressed. No anxiety Weight Dosing Weight: 80.9 kg (03/15/22) Medications Medications (17) Active Scheduled: (7) aspirin 81 mg EC 81 mg 1 tab(s), Oral, qDay atorvastatin 80 mg tablet 80 mg 1 tab(s), Oral, qDay folic acid 0.4 mg tablet 0.8 mg 2 tab(s), Oral, qDay losartan 25 mg tablet 25 mg 1 tab(s), Oral, qDay mirtazapine 15 mg tablet 7.5 mg 0.5 tab(s), Oral, qHS nystatin susp 100,000 units/mL 5 mL UD 500,000 unit(s) 5 mL, Swish & Swallow, QID thiamine (w/calcium) 100 mg tablet 100 mg 1 tab(s), Oral, qDay Continuous: (0) PRN: (10) acetaminophen 325 mg Tablet 650 mg 2 tab(s), Oral, q4h Al hydrox/Mg hydrox/simethicone 200-200-20 mg/5 mL Susp UD 30 mL, Oral, q6h dextrose 50% Solution Disp syringe 50 mL 12.5 gram(s) 25 mL, IV Push, AsDirected docusate sodium 100 mg Capsule 100 mg 1 cap(s), Oral, BID glucagon recombinant 1 mg 1 mg 1 mL, Intramuscular, AsDirected glucose 4 gm Chewable 16 gram(s) 4 tab(s), Chewed, AsDirected glycerin adult Suppository 1 supp, Rectal, Daily hydrocortisone topical 2.5% Cream 1 miky, Topical, BID magnesium hydroxide 8% Suspension 30 mL UD 30 mL, Oral, qHS polyethylene glycol 3350 - UD packet 17 gram(s) 15 mL, Oral, qDay Lab Results No 36 Hour Lab Data EKG No qualifying data available. Assessment/Plan 1. Ischemic stroke With right hemiparesis. Continue nightly PT OT speech 2. Alcoholism /alcohol abuse counseling 3. High blood pressure 4. Hyperlipidemia lipitor loud clear and slow Time Spent 25 min Digitally Signed by LEVON CARTER DO on 03/25/2022 10:31 AM Lorin [id number] Nurse Progress note Nursing GG Entered On: 03/25/2022 3:14 EDT Performed On: 03/25/2022 3:14 EDT by Mojgan Marin RN Nursing GG's OT GG Grid Toilet Hygiene : Set up & Clean up Toilet Transfer : Substantial/Maximal Assistance Mojgan Marin RN - 03/25/2022 3:14 EDT Digitally Signed by Mojgan Marin RN on 03/25/2022 03:14 AM Lorin [id number] Nurse Progress note RECEIVED PHONE CALL FROM GUCCI GARCIA [employer] WITH APPROVAL FOR CONTINUED STAY AND NEXT REVIEW DATE-03/27. Digitally Signed by GILMER Levi on 03/24/2022 09:22 AM Lorin [id number] Physical medicine and rehab Progress note Rehab Note Chief Complaint: Seeing this patient for evaluation of therapy, CVA and right- sided weakness History of Present Illness: Seeing this patient for evaluation of therapy, CVA and right-sided weakness. Patient participates in acute inpatient rehabilitation with PT/OT/ST services. Patient has past medical history significant for hypertension, hyperlipidemia, alcohol abuse and medical noncompliance. 71-year-old male admitted with right-sided upper/lower extremity weakness and slurred speech, hypertensive, right facial droop. Patient had CT of the head/neck without contrast, was negative no intracranial bleed. CT angiography head and neck showed right A2 segment occlusion. MRI revealed stroke out of window for tPA. Discussed with nursing. Medications reviewed. Tentative discharge date 04/07. Patient sitting up in bed, resting hand splint in place right hand. Patient denies any uncontrolled pain or discomfort. Medications (16) Active Scheduled: (6) aspirin 81 mg EC 81 mg 1 tab(s), Oral, qDay atorvastatin 80 mg tablet 80 mg 1 tab(s), Oral, qDay folic acid 0.4 mg tablet 0.8 mg 2 tab(s), Oral, qDay losartan 25 mg tablet 25 mg 1 tab(s), Oral, qDay mirtazapine 15 mg tablet 7.5 mg 0.5 tab(s), Oral, qHS thiamine (w/calcium) 100 mg tablet 100 mg 1 tab(s), Oral, qDay Continuous: (0) PRN: (10) acetaminophen 325 mg Tablet 650 mg 2 tab(s), Oral, q4h Al hydrox/Mg hydrox/simethicone 200-200-20 mg/5 mL Susp UD 30 mL, Oral, q6h dextrose 50% Solution Disp syringe 50 mL 12.5 gram(s) 25 mL, IV Push, AsDirected docusate sodium 100 mg Capsule 100 mg 1 cap(s), Oral, BID glucagon recombinant 1 mg 1 mg 1 mL, Intramuscular, AsDirected glucose 4 gm Chewable 16 gram(s) 4 tab(s), Chewed, AsDirected glycerin adult Suppository 1 supp, Rectal, Daily hydrocortisone topical 2.5% Cream 1 miky, Topical, BID magnesium hydroxide 8% Suspension 30 mL UD 30 mL, Oral, qHS polyethylene glycol 3350 - UD packet 17 gram(s) 15 mL, Oral, qDay Social history: Social support: Lives alone Home set-up: Single level home, first-floor bedroom/bathroom Barriers to discharge: Time since onset, safety awareness, past medical history Review of Systems: General: Appetite is good Respiratory: Denies shortness of breath, denies cough Cardiovascular: Denies chest pain, denies palpitations Gastrointestinal: Abdomen soft, non tender, non distended. Bowel sounds x 4. Genitourinary: Denies suprapubic pain or tenderness, no dysuria Musculoskeletal: No uncontrolled pain. Right-sided weakness Psychiatric: No reported change in cognition Vitals Signs(Last 24 hrs)__Last Charted Minimum Maximum Temp36.6(MAR 23 09:06)36.6(MAR 23 09:06)36.6(MAR 23 09:06) Resp Rate18(MAR 23 16:31)18(MAR 23 09:06)18(MAR 23 09:06) EGS542(MAR 23 16:31)136(MAR 23 16:31)H 148(MAR 23 09:06) DBP79(MAR 23 16:31)79(MAR 23 16:31)H 92(MAR 23 09:06) Physical Exam: General: No acute distress. Respiratory: Lungs are clear Cardiovascular: Regular rate and rhythm Gastrointestinal: Abdomen is soft nontender nondistended. Bowel sounds normal x4. Arterial: 1/4 distal pulses bilateral lower extremities Edema: Trace edema bilateral lower extremities. No calf tenderness. Musculoskeletal: 4/5 left upper extremity strength 0/5 right upper extremity strength. Increased end range tone 5/5 left lower extremity strength 4/5 right lower extremity strength Decreasing grasp bilaterally Decreased shoulder range of motion bilaterally Spinal Curvatures: Normal. No spinal or paraspinal tenderness Polyarthritis Weight bearing status/transfers/ADLs: Weight bearing as tolerated. Ambulated 25 feet. Partial/moderate assist walk 10 feet. Max assist lying to sitting on side of bed. Partial/moderate assist chair/bed to chair transfer. Partial/moderate assist with eating. Partial/moderate assist with grooming routine. Supervision/touch assist upper body dressing. Partial/moderate assist lower body dressing. Partial/moderate assist putting on/taking off footwear. Partial/moderate assist with bathing. Partial/moderate assist with toilet transfer. Partial/moderate assist with toilet hygiene. Skin: Intact. Diffused nontender rash to back Neurological: Sensation intact. Bilateral upper extremity reflexes 1/4. Bilateral lower extremity reflexes 1/4. Psychiatric: Alert, pleasant, and cooperative. Assessment: Stroke with right hemiparesis. Hypertension. Alcohol abuse. Hyperlipidemia. Dysarthria Plan: Continue acute rehab physical occupational and speech-language therapy. Work to minimize fallrisk. Continue thiamine and folate acid. Add nystatin swish and swallow for oral candidiasis. Remeron at night. Bowel routine. Was living alone prior to admission. Goal is for home with supervision and home care services with estimated discharge date April 07. Risks/benefits of meds, treatments considered. Therapy notes reviewed. Discussed with staff. PMH/SH reviewed and unchanged Note: This dictation was created with assistance of voice recognition software. Phonic and/or minorgrammatical errors may exist. Allison Watson RN, am scribing for, and in the presence of Dr. Frank CAGLE. IDr. Frank DO , personally performed the services described in this documentation, as described by Allison Torres RN in my presence and it is both accurate and complete. Digitally Signed by LEVON CARTER DO on 03/24/2022 02:32 PM Lorin [id number] Nurse Progress note Nursing GG Entered On: 03/23/2022 17:56 EDT Performed On: 03/23/2022 17:56 EDT by Bernice Nance RN Nursing GG's OT GG Grid Toilet Transfer : Substantial/Maximal Assistance Sit to lying : Substantial/Maximal Assistance Lying to sitting on side of bed : Substantial/Maximal Assistance Sit to stand : Substantial/Maximal Assistance Chair/[id number]-lh-[id number] transfer : Substantial/Maximal Assistance Bernice Nance RN - 03/23/2022 17:56 EDT Digitally Signed by Bernice Nance RN on 03/23/2022 05:56 PM Lorin [id number] Physical medicine and rehab Progress note Rehab Note Chief Complaint: Seeing this patient for evaluation of therapy, CVA and right- sided weakness History of Present Illness: Seeing this patient for evaluation of therapy, CVA and right-sided weakness. Patient participates in acute inpatient rehabilitation with PT/OT/ST services. Patient has past medical history significant for hypertension, hyperlipidemia, alcohol abuse and medical noncompliance. 71-year-old male admitted with right-sided upper/lower extremity weakness and slurred speech, hypertensive, right facial droop. Patient had CT of the head/neck without contrast, was negative no intracranial bleed. CT angiography head and neck showed right A2 segment occlusion. MRI revealed stroke out of window for tPA. Discussed with nursing. Medications reviewed. Tentative discharge date 04/07. Patient sitting on edge of bed, gait belt in place, aide to help transfer to wheelchair. Patient denies any uncontrolled pain or discomfort. Medications (16) Active Scheduled: (7) aspirin 81 mg EC 81 mg 1 tab(s), Oral, qDay atorvastatin 80 mg tablet 80 mg 1 tab(s), Oral, qDay folic acid 0.4 mg tablet 0.8 mg 2 tab(s), Oral, qDay hydrocortisone topical 2.5% Cream 1 miky, Topical, BID losartan 25 mg tablet 25 mg 1 tab(s), Oral, qDay mirtazapine 15 mg tablet 7.5 mg 0.5 tab(s), Oral, qHS thiamine (w/calcium) 100 mg tablet 100 mg 1 tab(s), Oral, qDay Continuous: (0) PRN: (9) acetaminophen 325 mg Tablet 650 mg 2 tab(s), Oral, q4h Al hydrox/Mg hydrox/simethicone 200-200-20 mg/5 mL Susp UD 30 mL, Oral, q6h dextrose 50% Solution Disp syringe 50 mL 12.5 gram(s) 25 mL, IV Push, AsDirected docusate sodium 100 mg Capsule 100 mg 1 cap(s), Oral, BID glucagon recombinant 1 mg 1 mg 1 mL, Intramuscular, AsDirected glucose 4 gm Chewable 16 gram(s) 4 tab(s), Chewed, AsDirected glycerin adult Suppository 1 supp, Rectal, Daily magnesium hydroxide 8% Suspension 30 mL UD 30 mL, Oral, qHS polyethylene glycol 3350 - UD packet 17 gram(s) 15 mL, Oral, qDay Social history: Social support: Lives alone Home set-up: Single level home, first-floor bedroom/bathroom Barriers to discharge: Time since onset, safety awareness, past medical history Review of Systems: General: Appetite is good Respiratory: Denies shortness of breath, denies cough Cardiovascular: Denies chest pain, denies palpitations Gastrointestinal: Abdomen soft, non tender, non distended. Bowel sounds x 4. Genitourinary: Denies suprapubic pain or tenderness, no dysuria Musculoskeletal: No uncontrolled pain. Right-sided weakness Psychiatric: No reported change in cognition Vitals Signs(Last 24 hrs)__Last Charted Minimum Maximum Temp36.8(MAR 22 23:04)36.8(MAR 22 23:04)36.7(MAR 22 08:51) Resp Rate18(MAR 22 23:04)18(MAR 22 08:51)18(MAR 22 08:51) ZOR512(MAR 22 23:04)136(MAR 22 23:04)H 144(MAR 22 08:51) DBP74(MAR 22 23:04)74(MAR 22 23:04)H 94(MAR 22 16:19) Physical Exam: General: No acute distress. Respiratory: Lungs are clear Cardiovascular: Regular rate and rhythm Gastrointestinal: Abdomen is soft nontender nondistended. Bowel sounds normal x4. Arterial: 1/4 distal pulses bilateral lower extremities Edema: Trace edema bilateral lower extremities. No calf tenderness. Musculoskeletal: 4/5 left upper extremity strength 2-/5 right upper extremity strength 4/5 left lower extremity strength 2+/5 right lower extremity strength Decreasing grasp bilaterally Decreased shoulder range of motion bilaterally Spinal Curvatures: Normal. No spinal or paraspinal tenderness Polyarthritis Weight bearing status/transfers/ADLs: Weight bearing as tolerated. Ambulated 35 feet. Partial/moderate assist walk 10 feet. Max assist lying to sitting on side of bed. Partial/moderate assist chair/bed to chair transfer. Partial/moderate assist with eating. Partial/moderate assist with grooming routine. Supervision/touch assist upper body dressing. Partial/moderate assist lower body dressing. Partial/moderate assist putting on/taking off footwear. Partial/moderate assist with bathing. Partial/moderate assist with toilet transfer. Partial/moderate assist with toilet hygiene. Skin: Intact. Diffused nontender rash to back Neurological: Sensation intact. Bilateral upper extremity reflexes 1/4. Bilateral lower extremity reflexes 1/4. Psychiatric: Alert, pleasant, and cooperative. Assessment: Stroke with right hemiparesis. Alcohol abuse. Diffuse rash resolved. Plan: Acute rehab physical occupational and speech therapy. Change hydrocortisone to as needed. Remeron for mood and appetite. Continue thiamine and folic acid. Goal is for discharge back home alone to single level set up with home care services. Estimated discharge date April 07 Risks/benefits of meds, treatments considered. Therapy notes reviewed. Discussed with staff. PMH/SH reviewed and unchanged Note: This dictation was created with assistance of voice recognition software. Phonic and/or minorgrammatical errors may exist. Allison Watson RN, am scribing for, and in the presence of Dr. Frank CAGLE. I, Dr. Frank CAGLE , personally performed the services described in this documentation, as described by Allison Torres RN in my presence and it is both accurate and complete. Digitally Signed by LEVON CARTER DO on 03/23/2022 01:48 PM Lorin [id number] Physical medicine and rehab Progress note Date of Service 03/22/2022 Chief Complaint Stroke Subjective 71-year-old male seen today in follow-up. Case discussed with nursing and therapy staff. Continues to make slow steady progress. Review of systems completed. Denies any shortness of breath cough wheeze no pruritus from rash. P.o. intake has been improved. Remeron added per medical service. His weights are noted. Blood pressure stable. Bowel routine successful. No pain complaints. No shortness of breath cough wheeze. Objective Vitals and Measurements T: 36.7 C (Oral) TMIN: 36.1 C (Oral) TMAX: 36.8 C (Oral) HR: 104 RR: 18 BP: 144/86 SpO2: 95% Intake and Output 7AM Yesterday to 7AM Today Intake and Output (Last 24 hours) Intake Supplement Intake 474.00 Output Total Summary Total Intake 474.00 Total Output 0.00 Fluid Balance 474.00 Physical Exam General Appearance: Alert and oriented 3 no apparent distress Head: Normocephalic no evidence of trauma EENT: Pupils equal and reactive to light and accommodation no erythema. Ears with no external lesions or discharge. Nose clear nares patent no discharge. Throat normal healthy dentition no redness orerythema. Neck: Trachea midline. No lymphatic adenopathy Cardiac: Regular rate and rhythm, no rubs or murmurs Lungs: Clear to auscultation, no adventitious sounds, good aeration Abdomen: Soft nontender no organomegaly or rebound positive bowel sounds Musculoskeletal: Intact range of motion no erythema no polyarthritic changes Extremities: No edema. Negative Homans sign Neurological: Right hemiparesis. Dysarthric speech. Moderate subacromial subluxation. No pain with passive range of motion. Slight increased endrange tone. Skin: Intact without rashes or erythema Psychiatric: Mood good. No anxiety depression Weight Dosing Weight: 80.9 kg (03/15/22) Medications Medications (16) Active Scheduled: (7) aspirin 81 mg EC 81 mg 1 tab(s), Oral, qDay atorvastatin 80 mg tablet 80 mg 1 tab(s), Oral, qDay folic acid 0.4 mg tablet 0.8 mg 2 tab(s), Oral, qDay hydrocortisone topical 2.5% Cream 1 miky, Topical, BID losartan 25 mg tablet 25 mg 1 tab(s), Oral, qDay mirtazapine 15 mg tablet 7.5 mg 0.5 tab(s), Oral, qHS thiamine (w/calcium) 100 mg tablet 100 mg 1 tab(s), Oral, qDay Continuous: (0) PRN: (9) acetaminophen 325 mg Tablet 650 mg 2 tab(s), Oral, q4h Al hydrox/Mg hydrox/simethicone 200-200-20 mg/5 mL Susp UD 30 mL, Oral, q6h dextrose 50% Solution Disp syringe 50 mL 12.5 gram(s) 25 mL, IV Push, AsDirected docusate sodium 100 mg Capsule 100 mg 1 cap(s), Oral, BID glucagon recombinant 1 mg 1 mg 1 mL, Intramuscular, AsDirected glucose 4 gm Chewable 16 gram(s) 4 tab(s), Chewed, AsDirected glycerin adult Suppository 1 supp, Rectal, Daily magnesium hydroxide 8% Suspension 30 mL UD 30 mL, Oral, qHS polyethylene glycol 3350 - UD packet 17 gram(s) 15 mL, Oral, qDay Lab Results No 36 Hour Lab Data EKG No qualifying data available. Assessment/Plan 1. Ischemic stroke With right hemiparesis. Plan continue acute rehab PT OT speech 2. Alcoholism /alcohol abuse Cessation 3. High blood pressure Follow vitals 4. Hyperlipidemia Statin Time Spent 25 minutes Digitally Signed by LEVON CARTER DO on 03/22/2022 11:[address] [id number] Nurse Progress note Nursing GG Entered On: 03/21/2022 4:01 EDT Performed On: 03/21/2022 4:00 EDT by Mojgan Marin RN Nursing GG's OT GG Grid Toilet Hygiene : Set up & Clean up Toilet Transfer : Partial/Moderate Mojgan Marin RN - 03/21/2022 4:00 EDT Digitally Signed by Mojgan Marin RN on 03/21/2022 04:00 AM Lorinreese [id number] Nurse Progress note Clinicals faxed to [employer] and fax confirmation was received. Authorization [id number]. Digitally Signed by GILMER Moore on 03/20/2022 03:[address] [facility] [id number] Physical medicine and rehab Progress note Date of Service 03/20/2022 Chief Complaint Stroke Subjective 71-year-old male seen today in follow-up and case discussed with therapy staff. Mid stroke with right hemiparesis. Review of systems completed. Blood pressures noted. Encourage increased fluid intake. Remeron initiated per medical service for depression and appetite stimulant. Goals for discharge home alone at a modified at the level with home care services. Currently partial assist mobility Objective Vitals and Measurements T: 36.5 C (Temporal Artery) TMIN: 36.2 C (Temporal Artery) TMAX: 36.5 C (Temporal Artery) HR: 100 RR: 18 BP: 142/70 SpO2: 96% Intake and Output 7AM Yesterday to 7AM Today Intake and Output (Last 24 hours) Intake Supplement Intake 474.00 Output Emesis Count 5.00 Total Summary Total Intake 474.00 Total Output 0.00 Fluid Balance 474.00 Physical Exam General Appearance: Alert and oriented 3 no apparent distress Head: Normocephalic no evidence of trauma EENT: Pupils equal and reactive to light and accommodation no erythema. Ears with no external lesions or discharge. Nose clear nares patent no discharge. Throat normal healthy dentition no redness orerythema. Neck: Trachea midline. No lymphatic adenopathy Cardiac: Regular rate and rhythm, no rubs or murmurs Lungs: Clear to auscultation, no adventitious sounds, good aeration Abdomen: Soft nontender no organomegaly or rebound positive bowel sounds Musculoskeletal: Intact range of motion no erythema no polyarthritic changes Extremities: No edema. Negative Homans sign Neurological: Right hemiparesis. Trace movement right arm with 2+ right leg. Right facial weakness.Dysarthric speech. Follows commands accurately. No coughing or choking noted with swallowing. Skin: Intact without rashes or erythema Psychiatric: Mood good. No anxiety depression Weight Dosing Weight: 80.9 kg (03/15/22) Medications Medications (16) Active Scheduled: (7) aspirin 81 mg EC 81 mg 1 tab(s), Oral, qDay atorvastatin 80 mg tablet 80 mg 1 tab(s), Oral, qDay folic acid 0.4 mg tablet 0.8 mg 2 tab(s), Oral, qDay hydrocortisone topical 2.5% Cream 1 miky, Topical, BID losartan 25 mg tablet 25 mg 1 tab(s), Oral, qDay mirtazapine 15 mg tablet 7.5 mg 0.5 tab(s), Oral, qHS thiamine (w/calcium) 100 mg tablet 100 mg 1 tab(s), Oral, qDay Continuous: (0) PRN: (9) acetaminophen 325 mg Tablet 650 mg 2 tab(s), Oral, q4h Al hydrox/Mg hydrox/simethicone 200-200-20 mg/5 mL Susp UD 30 mL, Oral, q6h dextrose 50% Solution Disp syringe 50 mL 12.5 gram(s) 25 mL, IV Push, AsDirected docusate sodium 100 mg Capsule 100 mg 1 cap(s), Oral, BID glucagon recombinant 1 mg 1 mg 1 mL, Intramuscular, AsDirected glucose 4 gm Chewable 16 gram(s) 4 tab(s), Chewed, AsDirected glycerin adult Suppository 1 supp, Rectal, Daily magnesium hydroxide 8% Suspension 30 mL UD 30 mL, Oral, qHS polyethylene glycol 3350 - UD packet 17 gram(s) 15 mL, Oral, qDay Lab Results No 36 Hour Lab Data EKG No qualifying data available. Assessment/Plan 1. Ischemic stroke With right hemiparesis. Plan continue acute rehab PT OT and speech therapy 2. Alcoholism /alcohol abuse Cessation 3. High blood pressure Follow vitals 4. Hyperlipidemia Statin Time Spent 25 minutes Digitally Signed by LEVON CARTER DO on 03/20/2022 12:50 PM Lorin [id number] Nurse Progress note Nursing GG Entered On: 03/20/2022 10:39 EDT Performed On: 03/20/2022 10:38 EDT by Kathy Miramontes LPN Nursing GG's OT GG Grid Eating : Independent Kathy Miramontes LPN - 03/20/2022 10:38 EDT Digitally Signed by Kathy Miramontes LPN on 03/20/2022 10:38 AM Lorin [id number] Nurse Progress note Nursing GG Entered On: 03/19/2022 16:47 EDT Performed On: 03/19/2022 16:46 EDT by Kathy Miramontes LPN Nursing GG's OT GG Grid Eating : Set up & Clean up Kathy Miramontes LPN - 03/19/2022 16:46 EDT Digitally Signed by Kathy Miramontes LPN on 03/19/2022 04:46 PM Lorin [id number] Nurse Progress note Nursing GG Entered On: 03/19/2022 13:13 EDT Performed On: 03/19/2022 13:13 EDT by Kathy Miramontes LPN Nursing GG's OT GG Grid Eating : Set up & Clean up Oral Hygiene : Set up & Clean up Toilet Hygiene : Substantial/Maximal Assistance Toilet Transfer : Dependent Upper Body Dressing : Substantial/Maximal Assistance Lower Body Dressing : Substantial/Maximal Assistance Roll left and right : Substantial/Maximal Assistance Sit to lying : Substantial/Maximal Assistance Lying to sitting on side of bed : Substantial/Maximal Assistance Sit to stand : Dependent Chair/rlo-bh-vqmuf transfer : Dependent Picking up object : Set up & Clean up Kathy Miramontes LPN - 03/19/2022 13:13 EDT Digitally Signed by Kathy Miramontes LPN on 03/19/2022 01:13 PM Lorin [id number] Physical medicine and rehab Progress note Date of Service 03/19/2022 Chief Complaint Stroke Subjective 71-year-old male seen today in follow-up. Case discussed with nursing and therapy staff. Admitted with stroke. Seen with speech therapy physical therapy today. Review of systems completed. Hydrocortisone to back rash with good response. Discussed with neuropsychology. Patient on thiamine for alcohol abuse. Folate added. Neuropsych testing revealed good cognition. Encourage AA activities post discharge. Currently partial assist mobility Objective Vitals and Measurements T: 36.2 C (Temporal Artery) TMIN: 36.2 C (Temporal Artery) TMAX: 36.6 C (Temporal Artery) HR: 95 RR: 20 BP: 148/62 SpO2: 99% Intake and Output 7AM Yesterday to 7AM Today Intake and Output (Last 24 hours) Intake Output Total Summary Total Intake 0.00 Total Output 0.00 Fluid Balance 0.00 Physical Exam General Appearance: Alert and oriented 3 no apparent distress Head: Normocephalic no evidence of trauma EENT: Pupils equal and reactive to light and accommodation no erythema. Ears with no external lesions or discharge. Nose clear nares patent no discharge. Throat normal healthy dentition no redness orerythema. Neck: Trachea midline. No lymphatic adenopathy Cardiac: Regular rate and rhythm, no rubs or murmurs Lungs: Clear to auscultation, no adventitious sounds, good aeration Abdomen: Soft nontender no organomegaly or rebound positive bowel sounds Musculoskeletal: Intact range of motion no erythema no polyarthritic changes Extremities: No edema. Negative Homans sign Neurological: 2 out of 5 right arm. 4 - right leg. Significant dysarthria and disfluency. Skin: Atrophic skin with erythematous faint rash to the back Psychiatric: Mood good. No anxiety depression Weight Dosing Weight: 80.9 kg (03/15/22) Medications Medications (16) Active Scheduled: (7) aspirin 81 mg EC 81 mg 1 tab(s), Oral, qDay atorvastatin 80 mg tablet 80 mg 1 tab(s), Oral, qDay folic acid 0.4 mg tablet 0.8 mg 2 tab(s), Oral, qDay hydrocortisone topical 2.5% Cream 1 miky, Topical, BID losartan 25 mg tablet 25 mg 1 tab(s), Oral, qDay mirtazapine 15 mg tablet 7.5 mg 0.5 tab(s), Oral, qHS thiamine (w/calcium) 100 mg tablet 100 mg 1 tab(s), Oral, qDay Continuous: (0) PRN: (9) acetaminophen 325 mg Tablet 650 mg 2 tab(s), Oral, q4h Al hydrox/Mg hydrox/simethicone 200-200-20 mg/5 mL Susp UD 30 mL, Oral, q6h dextrose 50% Solution Disp syringe 50 mL 12.5 gram(s) 25 mL, IV Push, AsDirected docusate sodium 100 mg Capsule 100 mg 1 cap(s), Oral, BID glucagon recombinant 1 mg 1 mg 1 mL, Intramuscular, AsDirected glucose 4 gm Chewable 16 gram(s) 4 tab(s), Chewed, AsDirected glycerin adult Suppository 1 supp, Rectal, Daily magnesium hydroxide 8% Suspension 30 mL UD 30 mL, Oral, qHS polyethylene glycol 3350 - UD packet 17 gram(s) 15 mL, Oral, qDay Lab Results No 36 Hour Lab Data EKG No qualifying data available. Assessment/Plan 1. Ischemic stroke PT OT and speech 2. Alcoholism /alcohol abuse Cessation. Thiamine and folate. 3. High blood pressure Follow vitals 4. Hyperlipidemia Statin. Time Spent 25 minutes Digitally Signed by LEVON CARTER DO on 03/19/2022 11:32 AM [id number] Note Subjective Patient is resting in bed upon exam today. Staff reports that patient has not had much of an appetite lately. He does agree with this, states he is just not hungry. No significant weight loss noted since admission. He denies any nausea or vomiting. States bowel bladder working effectively. Patient did previously receive IV fluids secondary to dehydration. He has a history of diastolic CHF, appears to be euvolemic at this time. Denies any lightheadedness or dizziness. Blood pressures over the past 24 hours ranging from 112/60 1 58/78. He states the pruritus to his back has resolved with hydrocortisone cream in place Objective General: Alert and oriented NAD. Patient is resting in bed without any acute signs of pain. Cooperative and pleasant HEENT: MMM. No nasal drainage. EOMI Respiratory: L CTA without cough or congestion. No respiratory distress Cardiovascular: Heart rate and rhythm regular. No arrhythmias or murmur Edema/Varicosities of Extremities: No edema to BLE Gastrointestinal: BSP x4. Abdomen is benign, without tenderness or distention Genitourinary: No SP/CVA tenderness. No bladder distention. Dark yellow urine in urinal Neurovascular: Right-sided hemiparesis ongoing VITALS [id number](kg) 03/19 05:5536.5--[id number]/24 80.9 03/18 16:3536.6112/[id number] 03/18 08:2636.7158/[id number] 03/17 16:1536.7138/[id number] 03/17 08:4436.5138/[id number] 24 Hr Tmax: 36.7 at 03/18 08: 36 Hr Tmax: 36.7 at 03/18 08: Vital Signs are the last 5 in the past 48 hours. Weights display the last 5 within 7 days. Initial Wt: 03/15 80.9 kg 178 lb Current Wt: 03/15 80.9 kg 178 lb LABS No 36 Hour Lab Data Medications Active Inpt Meds: aspirin (aspirin 81 mg oral delayed release tablet) Start: 03/16/22 9:00:00 EDT, Dose = 81 mg, = 1 tab(s), Oral, qDay, 0, 03/15/22 18:12:00 EDT atorvastatin Start: 03/15/22 21:00:00 EDT, Dose = 80 mg, = 1 tab(s), Oral, qDay, 03/15/22 18:12:00 EDT folic acid Start: 03/18/22 10:28:00 EDT, Dose = 0.8 mg, = 2 tab(s), Oral, qDay, 0, 03/18/22 10:20:00 EDT hydrocortisone topical (hydrocortisone 2.5% topical cream) Start: 03/17/22 21:00:00 EDT, Dose = 1 miky, Topical, BID, Apply to: back, 7 day(s), Stop: 03/24/22 9:00:00 EDT, Cream, 03/17/22 15:08:00 EDT losartan Start: 03/16/22 9:00:00 EDT, Dose = 25 mg, = 1 tab(s), Oral, qDay, 1st dose location: [facility], 1, 03/15/22 18:12:00 EDT thiamine Start: 03/16/22 9:00:00 EDT, Dose = 100 mg, = 1 tab(s), Oral, qDay, 0, 03/16/22 8:45:00 EDT Active PRN Meds: Al hydroxide/Mg hydroxide/simethicone (Maalox) Start: 03/15/22 17:39:00 EDT, Dose = 30 mL, Susp, Oral, q6h, PRN, Indigestion, 03/15/22 17:39:00 EDT acetaminophen (Tylenol) Start: 03/15/22 17:39:00 EDT, Dose = 650 mg, = 2 tab(s), Oral, q4h, PRN, Muscle pain, 03/15/22 17:39:00 EDT docusate (Colace) Start: 03/15/22 17:39:00 EDT, Dose = 100 mg, = 1 cap(s), Oral, BID, PRN, Constipation, 03/15/22 17:39:00 EDT glucagon (GlucaGen) Start: 03/15/22 17:39:00 EDT, Dose = 1 mg, = 1 mL, Intramuscular, AsDirected, PRN, Hypoglycemia, if unresponsive, NO IV ACCESS & blood glucose less than 60mg/dL. REPEAT x1 if still unresponsive., 1st dose location: [facility], 0, 03/15/22 17:39:00 EDT glucose (Dextrose 50% IV Push) Start: 03/15/22 17:39:00 EDT, Dose = 12.5 gram(s), = 25 mL, IV Push,AsDirected, PRN, Hypoglycemia, if unresponsive WITH IV ACCESS & blood glucose less than 60mg/dL. REPEAT x1 if still unresponsive after 2 minutes., 03/15/22 17:39:00 EDT glucose Start: 03/15/22 17:39:00 EDT, Dose = 16 gram(s), = 4 tab(s), Chewed, AsDirected, PRN, Hypoglycemia, DIABETIC PATIENT if responsive & blood glucose less than 60ml/dL. REPEAT x1 if blood glucose less than 60mg/dL after 15 minutes., 0, 03/15/22 17:39... glycerin (glycerin adult rectal suppository) Start: 03/15/22 17:39:00 EDT, Dose = 1 supp, Supp, Rectal, Daily, PRN, Constipation, 03/15/22 17:39:00 EDT magnesium hydroxide (Milk of Magnesia) Start: 03/15/22 17:39:00 EDT, Dose = 30 mL, Susp-Oral, Oral,qHS, PRN, Constipation, 03/15/22 17:39:00 EDT polyethylene glycol 3350 (Miralax Powder Packet) Start: 03/15/22 17:39:00 EDT, Dose = 17 gram(s), =15 mL, Oral, qDay, PRN, Constipation, 03/15/22 17:39:00 EDT One Time Meds: None Active IV Meds: None Problems (6) Alcoholism /alcohol abuse ([id number]) High blood pressure (55673696) Hyperlipidemia (54495087) Ischemic stroke (5885114685) Kidney stone ([id number]) Pain ([id number]) ASSESSMENT/PLAN: CVA with right-sided weakness and slurred speech, continue to risk factor modification aspirin and atorvastatin Generalized weakness continue PT/OT Hypertensive urgency, will control given recent CVA Tobacco abuse, ongoing cessation education provided; no withdrawal symptoms Fluid volume deficit, did receive IV fluids with good response Alcohol abuse, remains on folic acid and thiamine no active withdrawal symptoms Possible atrial fibrillation with arrhythmia, CardioNet monitor planned; monitoring closely Diastolic heart failure, euvolemic on exam, remains off diuretic therapy Irritant dermatitis to back, hydrocortisone cream in place until 03/24, denies pruritus Abram Watson RN, am scribing for, and in the presence of Savana Douglas APRN-CNP, personally performed the services described in this documentation, as scribed by, Abram Krishnamurthy RN, in my presence and it is both accurate and complete Digitally Signed by SAVANA SR on 03/20/2022 12:20 PM Lorin [id number] Nurse Progress note Nursing GG Entered On: 03/18/2022 23:38 EDT Performed On: 03/18/2022 23:38 EDT by Lauro Zazueta RN Nursing GG's OT GG Grid Toilet Transfer : Substantial/Maximal Assistance Lauro Zazueta RN - 03/18/2022 23:38 EDT Digitally Signed by Lauro Zazueta RN on 03/18/2022 11:38 PM Lorin [id number] Nurse Progress note Eating-02 Substantia/Maximal assistance Oral hygiene-02 Substantial/Maximal assistance Toileting hygiene-01 Dependent Shower/bathe self-02 Substantial/Maximal assistance Upper body dressing-02 Substantial/Maximal assistance Lower body dressing-02 Substantial/Maximal assistance Putting on/Taking off footwear-01 Dependent Roll left and right-02 Substantial/Maximal assistance Sit to lying-01 Dependent Lying to sitting on side of bed-02 Substantial/Maximal assistance Sit to stand-01 Dependent Chair/beb-lr-nvywx transfers-02 Substantial/Maximal assistance Toilet transfers-02 Substantial/Maximal assistance Car transfers-01 Dependent Walk 10 feet-01 Dependent Walk 50 feet with 2 turns-88 Not attempted due to medical condition Walk 150 feet-88 Not attempted due to medical condition Walk 10 feet on uneven surfaces-88 Not attempted due to medical condition 1 [address]-01 Dependent 4 steps-01 Dependent 12 steps-88 Not attempted due to medical condition Picking up object-88 Not attempted due to medical condition Patient's goal is not wheelchair mobility. Patient's goal is eating-05 (Setup). Digitally Signed by GILMER Moore on 03/18/2022 07:34 PM Lorin [id number] Nurse Progress note Nursing GG Entered On: 03/18/2022 17:02 EDT Performed On: 03/18/2022 17:02 EDT by Beryl Elias RN Nursing GG's OT GG Grid Eating : Set up & Clean up Beryl Elias RN - 03/18/2022 17:02 EDT Digitally Signed by Beryl Elias RN on 03/18/2022 05:02 PM Lorin [id number] Note REFERRING PHYSICIAN: Levon Carter DO. CONSULTING PSYCHOLOGIST: Zachary Rome, PhD. REASON FOR REFERRAL: Neuropsychological exam. HISTORY OF PRESENT ILLNESS: Mr. Spain is a 71-year-old right-handed white male admitted to [facility] 03/15/2022 from [facility] with acute onset of left subcortical structures including thalamus. Required aggressive blood pressure management with max BP recorded 185/106. He was outside of the TPA window. He was given aspirin, losartan, IV fluids due to dehydration and acute alcohol withdrawal protocol including thiamine, B12 and benzodiazepine due to heavy drinkinghabit. The patient has CardioNet because of concern of atrial fibrillation. Laboratory panels were reviewed. Normal liver functioning. Brain CT shows besides the acute stroke,severe small vessel disease and multiple lacunar infarctions. The patient has elevated risk for stroke because of smoking habit, hypertension, hyperlipidemia. Noprior [employer]IDING [employer] C[employer]ODIAN injuries or illnesses. No mental health history other than alcohol dependence is reported. CURRENT MEDICATIONS: Reviewed. He is still on thiamine, but not folic acid. Lorazepam 0.5 mg has been discontinued as no current agitation. Nothing else psychoactive or sedating. INTERVIEW RESULTS: Physically, the patient reports dense right upper and milder right lower numbness and weakness. He has facial droop on the right as well with gsua-xp-naofvtvu dysarthria. His dysphagia has improved sufficiently. He is on full diet. Cognitively, the patient agrees his thinking has much slowed now since the stroke, but no other complaints. Normal cognition premorbidly. Emotionally, the patient admits he is overwhelmed with his situation. Depressed, anxious and discouraged. Denies suicidal thoughts, but is feeling hopeless and pessimistic. Anxiety takes the form of ruminative worry. He denies psychoses, lynsey, thoughts of hurting himself or others. Affect is very flat, but polite. Sleeping poorly and eating poorly. Mr. Spain lives in [place] in a house, alone. . Has son, Claudio. For support, he lists brothers who live in [place]. 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 He has a high school diplomafrom Fili ovalle. TEST RESULTS: I used a Cognistat, RBANS, form C and Marialuisa IV test noted below. Right handed, butuses left for drawing. Wears glasses. Good effort. ATTENTION: He is alert and oriented. Verbal span is normal. He can recall 6 numbers in order without mistake. Verbal complex attention measured by digits reverse is intact. He can recall 5 numbers inreverse without mistake. Visual attention span is mild to moderately impaired limited to 3 units recalled consistently and 4 with mistakes on tries. LANGUAGE: Comprehension is normal for multistep commands. Speech is difficult to understand becauseof dysarthria and halting, but no clear paraphasic errors. He repeats complex phrases normally. He had a normal score on the naming screen, 9/10 correct. VISION AND MOTOR SKILLS: Visual design copy contained significant errors because of discoordinationof the left hand. Not likely to be due to the stroke. Likely because of neurologic complications ofhis drinking, more on that later. With the significant motor degeneration difficult to discern whether he also has visual perceptual deficits. Line angle perception is mildly impaired, 5/10 correct. MEMORY: Visual memory remains intact with 50% recall of visual design after 15- minute delay. Verbal memory storage for 5 words is normal, two tries to learn it consecutively without mistake. Fifteen minutes later, only able to recall 1, a moderate deficit score. EXECUTIVE FUNCTIONS: Visual reasoning remains intact with a standard score of 9 on matrix reasoningtest. Verbal reasoning measure by the judgment test is mildly impaired, 6/10 points. Normal on cognitive estimates, 6/6. CONCLUSIONS: Mr. Spain is a 71-year-old right-handed white male admitted to [facility] 03/15/2022 after developing a left thalamic infarction. Imaging also showed severe small vessel disease and multiple small lacunar infarctions throughout. The patient was placed on high- dose statin, aspirin, and losartan. Outside of TPA window. Placed on alcohol protocol as noted above due to heavy drinking habit. He was given fluids for dehydration. He has a CardioNet monitor for the next [address] Carter requested cognitive testing for treatment and discharge planning. Cognitive testing reveals cloz-ta-xkqsnzur deficits in visual attention, verbal delayed memory recall, visual perception, significant discoordination of left hand, mild verbal reasoning deficit. Recommend cognitive therapy. Repeat testing in a week. He is at moderate risk for falls from a cognitive standpoint. He will not need 24-hour supervision at discharge, I predict, but may need help with memory sensitive tasks. Later in his stay, we will discuss alcohol treatment options. I talked with Dr. Carter about the fact that the left hand discoordination is not likely a stroke effect, but is an indicator possibly of the effects of the alcohol dependence on neurologic function such as inadequate absorption of B vitamins that can cause central and peripheral neuropathy effects. I thank Dr. Carter for this referral. 65 minutes FINAL DIAGNOSES: 1. 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 2. Alcohol dependence, in early total remission because of protective environment. 3. Adjustment disorder with mixed emotional features, moderate to severe. Last discussed possible benefit of SSRI trial for the last diagnosis. ZACHARY ROME, PhD GM/NTS JOB#: [id number] DICTATION ID#: [id number] Digitally Signed by ZACHARY ROME PhD on 03/25/2022 01:30 PM Lorin [id number] Nurse Progress note Nursing GG Entered On: 03/18/2022 11:32 EDT Performed On: 03/18/2022 11:32 EDT by Beryl Elias RN Nursing GG's OT GG Grid Eating : Set up & Clean up Beryl Elias RN - 03/18/2022 11:32 EDT Digitally Signed by Beryl Elias RN on 03/18/2022 11:32 AM Lorin [id number] Physical medicine and rehab Progress note Date of Service 03/18/2020 Chief Complaint Right body stroke stroke patient is a 71 -year-old male seen today in follow-up. Case discussed in team staffing. Weekly rehab report is reviewed. Case discussed with family. All questions are answered. Plan is to continue acute rehab with PT OT and speech-language therapy services. Continue to work on gait training range of motion strengthening ADLs self-care speech-language and dysphagia therapy. Two-person assist for transfers gait and stairs. Substantial assist mobility. Substantial assist for ADLs and self-care. Dysarthria and word finding difficulties. Chopped meats. Goal is for discharge home at a modified independent level with probable home care services. Plan discharge date: 2 3 weeks: Barriers to discharge. Right body weakness For further details, please see electronic team staffing note Objective Vitals and Measurements T: 36.7 C (Temporal Artery) HR: 97 RR: 18 BP: 158/78 SpO2: 95% Intake and Output 7AM Yesterday to 7AM Today Intake and Output (Last 24 hours) Intake Output Total Summary Total Intake 0.00 Total Output 0.00 Fluid Balance 0.00 Physical Exam General Appearance: Alert and oriented 3 no apparent distress Head: Normocephalic no evidence of trauma EENT: Pupils equal and reactive to light and accommodation no erythema. Ears with no external lesions or discharge. Nose clear nares patent no discharge. Throat normal healthy dentition no redness orerythema. Neck: Trachea midline. No lymphatic adenopathy Cardiac: Regular rate and rhythm, no rubs or murmurs Lungs: Clear to auscultation, no adventitious sounds, good aeration Abdomen: Soft nontender no organomegaly or rebound positive bowel sounds Musculoskeletal: Intact range of motion no erythema no polyarthritic changes Extremities: No edema. Negative Homans sign Neurological: Moderate right hemiparesis. right Facial weakness. Dysarthric speech. Skin: Intact without rashes or erythema Psychiatric: Mood good. No anxiety depression Weight Dosing Weight: 80.9 kg (03/15/22) Medications Medications (14) Active Scheduled: (5) aspirin 81 mg EC 81 mg 1 tab(s), Oral, qDay atorvastatin 80 mg tablet 80 mg 1 tab(s), Oral, qDay hydrocortisone topical 2.5% Cream 1 miky, Topical, BID losartan 25 mg tablet 25 mg 1 tab(s), Oral, qDay thiamine (w/calcium) 100 mg tablet 100 mg 1 tab(s), Oral, qDay Continuous: (0) PRN: (9) acetaminophen 325 mg Tablet 650 mg 2 tab(s), Oral, q4h Al hydrox/Mg hydrox/simethicone 200-200-20 mg/5 mL Susp UD 30 mL, Oral, q6h dextrose 50% Solution Disp syringe 50 mL 12.5 gram(s) 25 mL, IV Push, AsDirected docusate sodium 100 mg Capsule 100 mg 1 cap(s), Oral, BID glucagon recombinant 1 mg 1 mg 1 mL, Intramuscular, AsDirected glucose 4 gm Chewable 16 gram(s) 4 tab(s), Chewed, AsDirected glycerin adult Suppository 1 supp, Rectal, Daily magnesium hydroxide 8% Suspension 30 mL UD 30 mL, Oral, qHS polyethylene glycol 3350 - UD packet 17 gram(s) 15 mL, Oral, qDay Lab Results No 36 Hour Lab Data EKG No qualifying data available. Assessment/Plan 1. Ischemic stroke With right hemiparesis. Plan acute rehab PT OT and speech 2. Alcoholism /alcohol abuse counseling 3. High blood pressure htn 4. Hyperlipidemia Time Spent 25 min Digitally Signed by LEVON CARTER DO on 03/18/2022 10:16 AM [id number] Progress note A complete drug regime review was completed. No potential clinically significant medication issues were found. Digitally Signed by GILMER Mooreela Benson on 03/18/2022 09:28 AM [id number] Note Subjective Patient states he is doing well this morning. He states that the rash to his back does not itch as bad he believes that his healing. Denies any lightness, dizziness, headache with blood pressure ranging 130/60 1 48/80. He denies any shortness of breath or conversational dyspnea states breathing is comfortable. Denies any uncontrolled pain. Denies any withdrawal symptoms. Reports bowels are move without difficulty. Denies any urinary urgency, frequency, dysuria. Objective General: Alert and oriented, no acute distress. Sitting up in wheelchair eating breakfast, no choking observed. Appears comfortable does not appear in acute pain. Pleasant/cooperative. Good eye contact with bright affect HEENT: EOMI, no nasal drainage, and moist mucous membranes Respiratory: Lungs are clear to auscultation. Respirations unlabored on room air. No cough, congestion, or conversational dyspnea Cardiovascular: Heart rate is regular. No bradycardia, tachycardia, or heart murmur Edema/Varicosities of Extremities: No bilateral extremity edema Gastrointestinal: Abdomen is nontender, soft, and nondistended. Bowel sounds present in all 4 quadrants Genitourinary: No CVA tenderness, no suprapubic tenderness, and no bladder distention Skin: Irritant dermatitis improving tube back, slightly pink. No open areas Neurovascular: Right-sided hemiparesis VITALS TcogetIypxKVHpfymQLObT0UYW1MhwpSb(kg) 03/17 16:1536.7138/[id number]/24 80.9 07/26 08:4436.5138/[id number] 03/17 05:36--148/8090--97RA 03/16 15:4036.8144/[id number] 03/16 08:1436.6140/[id number] 24 Hr Tmax: 36.7 at 03/17 16:15 36 Hr Tmax: 36.7 at 03/17 16:15 Vital Signs are the last 5 in the past 48 hours. Weights display the last 5 within 7 days. Initial Wt: 03/15 80.9 kg 178 lb Current Wt: 03/15 80.9 kg 178 lb LABS No 36 Hour Lab Data Medications Active Inpt Meds: aspirin (aspirin 81 mg oral delayed release tablet) Start: 03/16/22 9:00:00 EDT, Dose = 81 mg, = 1 tab(s), Oral, qDay, 0, 03/15/22 18:12:00 EDT atorvastatin Start: 03/15/22 21:00:00 EDT, Dose = 80 mg, = 1 tab(s), Oral, qDay, 03/15/22 18:12:00 EDT hydrocortisone topical (hydrocortisone 2.5% topical cream) Start: 03/17/22 21:00:00 EDT, Dose = 1 miky, Topical, BID, Apply to: back, 7 day(s), Stop: 03/24/22 9:00:00 EDT, Cream, 03/17/22 15:08:00 EDT losartan Start: 03/16/22 9:00:00 EDT, Dose = 25 mg, = 1 tab(s), Oral, qDay, 1st dose location: [facility], 1, 03/15/22 18:12:00 EDT thiamine Start: 03/16/22 9:00:00 EDT, Dose = 100 mg, = 1 tab(s), Oral, qDay, 0, 03/16/22 8:45:00 EDT Active PRN Meds: Al hydroxide/Mg hydroxide/simethicone (Maalox) Start: 03/15/22 17:39:00 EDT, Dose = 30 mL, Susp, Oral, q6h, PRN, Indigestion, 03/15/22 17:39:00 EDT acetaminophen (Tylenol) Start: 03/15/22 17:39:00 EDT, Dose = 650 mg, = 2 tab(s), Oral, q4h, PRN, Muscle pain, 03/15/22 17:39:00 EDT docusate (Colace) Start: 03/15/22 17:39:00 EDT, Dose = 100 mg, = 1 cap(s), Oral, BID, PRN, Constipation, 03/15/22 17:39:00 EDT glucagon (GlucaGen) Start: 03/15/22 17:39:00 EDT, Dose = 1 mg, = 1 mL, Intramuscular, AsDirected, PRN, Hypoglycemia, if unresponsive, NO IV ACCESS & blood glucose less than 60mg/dL. REPEAT x1 if still unresponsive., 1st dose location: [facility], 0, 03/15/22 17:39:00 EDT glucose (Dextrose 50% IV Push) Start: 03/15/22 17:39:00 EDT, Dose = 12.5 gram(s), = 25 mL, IV Push,AsDirected, PRN, Hypoglycemia, if unresponsive WITH IV ACCESS & blood glucose less than 60mg/dL. REPEAT x1 if still unresponsive after 2 minutes., 03/15/22 17:39:00 EDT glucose Start: 03/15/22 17:39:00 EDT, Dose = 16 gram(s), = 4 tab(s), Chewed, AsDirected, PRN, Hypoglycemia, DIABETIC PATIENT if responsive & blood glucose less than 60ml/dL. REPEAT x1 if blood glucose less than 60mg/dL after 15 minutes., 0, 03/15/22 17:39... glycerin (glycerin adult rectal suppository) Start: 03/15/22 17:39:00 EDT, Dose = 1 supp, Supp, Rectal, Daily, PRN, Constipation, 03/15/22 17:39:00 EDT magnesium hydroxide (Milk of Magnesia) Start: 03/15/22 17:39:00 EDT, Dose = 30 mL, Susp-Oral, Oral,qHS, PRN, Constipation, 03/15/22 17:39:00 EDT polyethylene glycol 3350 (Miralax Powder Packet) Start: 03/15/22 17:39:00 EDT, Dose = 17 gram(s), =15 mL, Oral, qDay, PRN, Constipation, 03/15/22 17:39:00 EDT One Time Meds: None Active IV Meds: None Problems (6) Alcoholism /alcohol abuse ([id number]) High blood pressure (00590884) Hyperlipidemia (10820802) Ischemic stroke (3229740023) Kidney stone (416976464) Pain (85884490) ASSESSMENT/PLAN: CVA with right-sided weakness and slurred speech, continue to risk factor modification aspirin and atorvastatin Hypertensive urgency, blood pressures stabilized without hypotension Tobacco abuse, ongoing cessation education provided; no withdrawal symptoms Fluid deficit status post IV hydration; monitoring closely Alcohol abuse, thiamine added; denies withdrawal symptoms Possible atrial fibrillation with arrhythmia, CardioNet monitor planned; monitoring closely Diastolic heart dysfunction with recent fluid overload, monitoring weights every Wednesday Leukocytosis, resolved. Irritant dermatitis to back, hydrocortisone cream 2.5% twice daily x7 days; improving This document was transcribed using dictation software and may contain typographical errors. Rosa Watson RN, am scribing for, and in the presence of Rosa Sr APRN. IRosa APRN, personally performed the services described in this documentation, as scribed by, Rosa Barth RN in my presence and it is both accurate and complete. Digitally Signed by SAVANA SR APRN-NAYLA on 03/19/2022 08:10 AM Lorin [id number] Nurse Progress note Nursing GG Entered On: 03/18/2022 0:32 EDT Performed On: 03/18/2022 0:31 EDT by Lauro Zazueta RN Nursing GG's OT GG Grid Toilet Transfer : Substantial/Maximal Assistance Lauro Zazueta RN - 03/18/2022 0:31 EDT Digitally Signed by Lauro Zazueta RN on 03/18/2022 12:31 AM Lorin [id number] Nurse Progress note Nursing GG Entered On: 03/17/2022 19:39 EDT Performed On: 03/17/2022 19:39 EDT by Lauro Zazueta RN Nursing 's OT GG Grid Eating : Set up & Clean up Lauro Zazueta RN - 03/17/2022 19:39 EDT Digitally Signed by Lauro Zazueta RN on 03/17/2022 07:39 PM Lorin [id number] Nurse Progress note Nursing GG Entered On: 03/17/2022 10:58 EDT Performed On: 03/17/2022 10:58 EDT by Beryl Elias RN Nursing 's OT GG Grid Eating : Set up & Clean up Beryl Elias RN - 03/17/2022 10:58 EDT Digitally Signed by Beryl Elias RN on 03/17/2022 10:58 AM Lorin [id number] Note Subjective Patient reports that he is doing well with therapy this morning. He continues to report that hemiparesis is ongoing to right hand however right leg has gotten some strength back. He does report a rash to his back that is itchy. Staff requesting evaluation of this today. He is also requesting medication to assist with symptoms. Systolic blood pressures do appear to be controlled between 140 148 onlosartan 25 mg daily. Thiamine was added yesterday for alcohol abuse. Patient denies any withdrawalsymptoms of tobacco or alcohol. WBC resulting at 8.6 and patient denies fever, chills or symptoms of infection. Reports his bowel and bladder are moving appropriately. Denies any shortness of breath or chest pain. Objective General: NAD: A&O x4. Sitting up in wheelchair and appears comfortable. No symptoms of pain noted. Pleasant and cooperative with good eye contact HEENT: PERRLA/MMM/no nasal drainage Respiratory: L CTA respirations nonlabored on room air. No conversational dyspnea/cough/congestion Cardiovascular: Heart rhythm irregular, rate controlled. No bradycardia, tachycardia or murmur Edema/Varicosities of Extremities: BLE edema stable. Ongoing right hemiparesis with flaccidity to right hand and weakness to right leg. Gastrointestinal: Bowel is present x4: Abdomen nondistended, nontender, soft Genitourinary: No suprapubic tenderness or bladder distention Skin: Irritant dermatitis noted to back that is red but without skin impairment. VITALS VajvqqDfbaQXCtawcGQWoR8OUJ3OccpNy(kg) 03/17 05:36--148/8090--97RA03/15 80.9 03/16 15:4036.8144/[id number] 03/16 08:1436.6140/[id number] 03/15 23:23--150/[id number] 03/15 21:0736.3152/[id number] 24 Hr Tmax: 36.8 at 03/16 15:40 36 Hr Tmax: 36.8 at 03/16 15:40 Vital Signs are the last 5 in the past 48 hours. Weights display the last 5 within 7 days. Initial Wt: 03/15 80.9 kg 178 lb Current Wt: 03/15 80.9 kg 178 lb LABS 03/16 06:41 WBC: 8.6 Hgb: 15.0 Hct: 42.9 Platelet: 273 Neutrophil %: 59.4 Glucose Level: 90 Sodium Level: 139 Potassium Level: 4.3 BUN: 14.0 Creatinine Lvl (s): 0.77 Medications Active Inpt Meds: aspirin (aspirin 81 mg oral delayed release tablet) Start: 03/16/22 9:00:00 EDT, Dose = 81 mg, = 1 tab(s), Oral, qDay, 0, 03/15/22 18:12:00 EDT atorvastatin Start: 03/15/22 21:00:00 EDT, Dose = 80 mg, = 1 tab(s), Oral, qDay, 03/15/22 18:12:00 EDT losartan Start: 03/16/22 9:00:00 EDT, Dose = 25 mg, = 1 tab(s), Oral, qDay, 1st dose location: [facility], 1, 03/15/22 18:12:00 EDT thiamine Start: 03/16/22 9:00:00 EDT, Dose = 100 mg, = 1 tab(s), Oral, qDay, 0, 03/16/22 8:45:00 EDT Active PRN Meds: Al hydroxide/Mg hydroxide/simethicone (Maalox) Start: 03/15/22 17:39:00 EDT, Dose = 30 mL, Susp, Oral, q6h, PRN, Indigestion, 03/15/22 17:39:00 EDT acetaminophen (Tylenol) Start: 03/15/22 17:39:00 EDT, Dose = 650 mg, = 2 tab(s), Oral, q4h, PRN, Muscle pain, 03/15/22 17:39:00 EDT docusate (Colace) Start: 03/15/22 17:39:00 EDT, Dose = 100 mg, = 1 cap(s), Oral, BID, PRN, Constipation, 03/15/22 17:39:00 EDT glucagon (GlucaGen) Start: 03/15/22 17:39:00 EDT, Dose = 1 mg, = 1 mL, Intramuscular, AsDirected, PRN, Hypoglycemia, if unresponsive, NO IV ACCESS & blood glucose less than 60mg/dL. REPEAT x1 if still unresponsive., 1st dose location: [facility], , 03/15/22 17:39:00 EDT glucose (Dextrose 50% IV Push) Start: 03/15/22 17:39:00 EDT, Dose = 12.5 gram(s), = 25 mL, IV Push,AsDirected, PRN, Hypoglycemia, if unresponsive WITH IV ACCESS & blood glucose less than 60mg/dL. REPEAT x1 if still unresponsive after 2 minutes., 03/15/22 17:39:00 EDT glucose Start: 03/15/22 17:39:00 EDT, Dose = 16 gram(s), = 4 tab(s), Chewed, AsDirected, PRN, Hypoglycemia, DIABETIC PATIENT if responsive & blood glucose less than 60ml/dL. REPEAT x1 if blood glucose less than 60mg/dL after 15 minutes., 0, 03/15/22 17:39... glycerin (glycerin adult rectal suppository) Start: 03/15/22 17:39:00 EDT, Dose = 1 supp, Supp, Rectal, Daily, PRN, Constipation, 03/15/22 17:39:00 EDT magnesium hydroxide (Milk of Magnesia) Start: 03/15/22 17:39:00 EDT, Dose = 30 mL, Susp-Oral, Oral,qHS, PRN, Constipation, 03/15/22 17:39:00 EDT polyethylene glycol 3350 (Miralax Powder Packet) Start: 03/15/22 17:39:00 EDT, Dose = 17 gram(s), =15 mL, Oral, qDay, PRN, Constipation, 03/15/22 17:39:00 EDT One Time Meds: None Active IV Meds: None Problems (6) Alcoholism /alcohol abuse ([id number]) High blood pressure (96400496) Hyperlipidemia (29069762) Ischemic stroke (2102305983) Kidney stone (966376846) Pain (06311454) ASSESSMENT/PLAN: CVA with right-sided weakness and slurred speech, continue to risk factor modification aspirin and atorvastatin Hypertensive urgency, blood pressures are controlled on current regimen Tobacco abuse, ongoing cessation education provided Fluid deficit status post IV hydration Alcohol abuse, thiamine added yesterday Possible atrial fibrillation with arrhythmia, CardioNet monitor planned Diastolic heart dysfunction with recent fluid overload, monitoring weights closely Leukocytosis, WBC resulting at 8.6 and this has resolved Irritant dermatitis to back, add hydrocortisone cream 2.5% twice daily x7 days This document was transcribed using dictation software and may contain typographical errors. Rosa Watson RN, am scribing for, and in the presence of Rosa Sr APRN. IRosa APRN, personally performed the services described in this documentation, as scribed by, Rosa Ross RN in my presence and it is both accurate and complete. 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 Chart reviewed. Case discussed with nursing and therapy staff. He is admitted with a PMHx of HTN and HLD who presents to the ED for evaluation of right sided upper and lower extremity weakness and slurred speech. Pt was last know to be normal last night when he went to bed. He states that he woke up the morning of admission at about 9:00 AM, could not move his right arm and when he attempted to get up, he couldn't due to weakness of hislegs. Her symptoms got worse, he noted slurred speech and called his nephew who called EMS. In ED, vitals were stable except BP 185/106. Labs were unremarkable. CT head/brain no contrast was negative, no intracranial bleed. CT angiography head and neck showed right A2 segment occlusion. Mild to moderate left post communicating P2 aspirate, no acute arterial abnormality of the neck. Approximately 55% left and 20% right ICA stenosis. CXR was negative, EKG showed sinus tachycardia. MRI revealed stroke and stroke in the left caudothalamic groove. He was seen by neurology. He was out of the windowfor tPA [facility] was ordered to rule out atrial fibrillation. Patient complains today of right body weakness as well as speech impairment. Due to the fact that he had impairments in gait mobility ADLs and medical complexity, decision was made to admit him to the acute physical rehabilitation unit. Baseline functional status is independent. Current functional status mod to substantial assist Medications Home Medications (3) Active aspirin 81 mg oral delayed release tablet 81 mg = 1 tab(s), Oral, qDay atorvastatin 80 mg oral tablet 80 mg = 1 tab(s), Oral, qDay losartan 25 mg oral tablet 25 mg = 1 tab(s), Oral, qDay Review of Systems Constitutional: Denies weight changes fever or chills Eyes: Denies dry eyes or vision changes Ears, Nose, Mouth & Throat: Denies nasal congestion throat pain or difficulty swallowing Cardiovascular: History of hypertension and hyperlipidemia. Respiratory: Denies shortness of breath cough or wheeze Gastrointestinal: Denies diarrhea constipation or early satiety Genitourinary: Denies urgency frequency or hematuria Musculoskeletal: Denies joint pain arthralgias or joint swelling Skin: Denies rashes or erythema Neurological: Complains of right-sided weakness and dysarthric speech. Psychiatric: Denies mood disturbance anxiety depression Endocrine: Denies polydipsia polyuria or heat and cold intolerances Allergic/Immunologic: Denies environmental allergies or immune dysfunction Problem List/Past Medical History Ongoing Alcoholism /alcohol abuse High blood pressure Hyperlipidemia Ischemic stroke Kidney stone Pain Historical No qualifying data Procedure/Surgical History Lithotripsy Social History Smoking Status - 08/07/2014 Never smoker Alcohol Use: Past., 03/01/2022 Substance Abuse Use: Never., 03/01/2022 Tobacco Nicotine Use: Never (less than 100 in lifetime)., 03/01/2022 Lives alone. Supportive son. Family History Asthma: Negative: Mother, Father, Sister, Brother, Daughter and Son. Cancer: Negative: Mother, Father, Sister, Brother, Daughter and Son. Diabetes mellitus: Negative: Mother, Father, Sister, Brother, Daughter and Son. HIV: Negative: Mother, Father, Sister, Brother and Son. HTN - Hypertension: Negative: Mother, Father, Sister, Brother, Daughter and Son. Heart disease: Negative: Mother, Father, Sister, Brother, Daughter and Son. Hepatitis: Negative: Mother, Father, Sister, Brother, Daughter and Son. Hyperchloremia: Negative: Mother, Father, Sister, Brother, Daughter and Son. Mental illness: Negative: Mother, Father, Sister, Brother, Daughter and Son. Seizure: Negative: Mother, Father, Sister, Brother, Daughter and Son. Stroke: Negative: Mother, Father, Sister, Brother, Daughter and Son. TB - Tuberculosis: Negative: Mother, Father, Sister, Brother, Daughter and Son. Allergies NKA Physical Exam Vitals and Measurements T: 36.8 C (Temporal Artery) TMIN: 36.3 C (Oral) TMAX: 36.8 C (Temporal Artery) HR: 92 RR: 18 BP: 144/88 SpO2: 94% HT: 177 cm WT: 80.9 kg BMI: 25.82 Weight Dosing Weight: 80.9 kg (03/15/22) General Appearance: Alert and oriented 3 no apparent distress Head: Normocephalic no evidence of trauma EENT: Pupils equal and reactive to light and accommodation no erythema. Ears with no external lesions or discharge. Nose clear nares patent no discharge. Throat normal healthy dentition no redness orerythema. Neck: Trachea midline. No lymphatic adenopathy Cardiac: Regular rate and rhythm, no rubs or murmurs Lungs: Clear to auscultation, no adventitious sounds, good aeration Abdomen: Soft nontender no organomegaly or rebound positive bowel sounds Musculoskeletal: Intact range of motion no erythema no polyarthritic changes Extremities: No edema. Negative Homans sign Neurological: Right hemiparesis with 2 out of 5 right arm and 4 - right leg strength. Dysarthric speech. Right facial weakness. Decree sensation distally. Decreased muscle tone. Follows commands accurately Skin: Intact without rashes or erythema Psychiatric: Mood good. No anxiety depression Lab Results 03/16 06:41 WBC: 8.6 Hgb: 15.0 Hct: 42.9 Platelet: 273 Neutrophil %: 59.4 Glucose Level: 90 Sodium Level: 139 Potassium Level: 4.3 BUN: 14.0 Creatinine Lvl (s): 0.77 Diagnostics (03/12/2022 19:01 EDT MRI Brain w/o Contrast) 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 Volume l [1] Assessment/Plan 1. Alcoholism /alcohol abuse Rehab psychology consult 2. High blood pressure Follow vitals 3. Hyperlipidemia Statin 4. Ischemic stroke With right hemiparesis and dysarthria. Plan is for acute rehabilitation with PT OT and speech-language therapy Orders: Diet Order Condition Medically complex and medically stable Post Admission Physician Evaluation Medical reconciliation performed. Old chart reviewed. Patient status on admission to rehab is medically stable but medically complex. Appropriate for admission to inpatient rehab facility due to need for 24-hour nursing and medical management in a hospital-based setting. Comparison with information on preadmission screening findings information to be consistent. Diagnoses to be monitored and treated include. Right body stroke, hypertension, hyperlipidemia, alcohol abuse, hyperlipidemia, dysarthria, internal carotid stenosis Rehabitation physician to direct team staffing. See daily on rehabilitation rounds. Plan is for acute rehab with PT OT and speech-language therapy rehab nursing social work and nutrition for an acute interdisciplinary team rehab approach. Will work on gait training, ADLs, self-care,and strengthening, bowel and bladder program. DVT prophylaxis and medical management of comorbidities Minimal 3 hours/day 5-6 days/week of rehabilitation services Goal is for discharge home at a supervised level for all gait mobility ADLs and self-care skills, skin intact, medically stable, optimal cardiopulmonary status, free of infection, continent of bowel bladder, adequate pain management and comfort, complete discharge disposition home set up patient and family training. Medical Comorbidities at the Time of Admission Right body stroke, hypertension, hyperlipidemia, alcohol abuse, hyperlipidemia, dysarthria, internal carotid stenosis Barriers to Discharge Functional and medical impairments Consulting Physician Drs. Hayward and Wild Estimated Length of Stay 3 weeks [1] MRI Brain w/o Contrast; EZEQUIEL APONTE DO 03/12/2022 19:01 EDT Digitally Signed by LEVON CARTER DO on 03/16/2022 04:36 PM Digitally Signed by LEVON CARTER DO on 03/18/2022 10:12 AM Lorin [id number] Nurse Progress note Patient received and acknowledged the privacy act statement and the data collection information summary on admission. Patient also received and acknowledged the rehab disclosure form with the expected therapy and that he has [employer] Medicare. Digitally Signed by GILMER Moore on 03/16/2022 03:32 PM Lorin [id number] Evaluation + Plan noteExtracted from: Title:Rehab Post Admission Physician Hang Mackey Au thor:LEVON CARTER DO Date:03/16/22 Assessment/Plan 1. Alcoholism /alcohol abuse Rehab psychology consult 2. High blood pressure Follow vitals 3. Hyperlipidemia Statin 4. Ischemic stroke With right hemiparesis and dysarthria. Plan is for acute rehabilitation with PT OT and speech-language therapy Orders: Diet Order Medical Comorbidities at the Time of Admission Right body stroke, hypertension, hyperlipidemia, alcohol abuse, hyperlipidemia, dysarthria, internal carotid stenosis Consulting Physician Drs. Hayward and Wild Estimated Length of Stay 3 weeks Lorin Hudson [phone] Nurse Progress note Nursing GG Entered On: 03/16/2022 10:26 EDT Performed On: 03/16/2022 10:26 EDT by Maureen Johns RN Nursing GG's OT GG Grid Eating : Independent Maureen Johns RN - 03/16/2022 10:26 EDT Digitally Signed by Maureen Johns RN on 03/16/2022 10:26 AM Lorin [id number] Nurse Progress note Nursing GG Entered On: 03/16/2022 6:07 EDT Performed On: 03/16/2022 6:07 EDT by Mojgan Marin RN Nursing GG's OT GG Grid Toilet Hygiene : Set up & Clean up Mojgan Marin RN - 03/16/2022 6:07 EDT Digitally Signed by Mojgan Marin RN on 03/16/2022 06:07 AM Lorin [id number] Nurse Progress note Admission skin check done, no areas of concern noted Digitally Signed by Mojgan Marin RN on 03/15/2022 08:25 PM Lorin [id number] Nurse Progress note Admission skin check done, no areas of concern noted Digitally Signed by Mojgan Marin RN on 03/15/2022 08:25 PM Lorin Bello-24-2022 Hospital Discharge instructions Follow Up Care 03/15/2022 17:31:22 With:HERMINIA MANZANO PA-C Address: [address] [place] [address] [address] [place] [address] [phone] When:04/21/2022 13:10:00 Comments:Neurology follow up Lorin Hudson 07-24-2022 Hospital Discharge instructions Patient Education 03/15/2022 16:47:49 Stroke Prevention, [id number] Stroke Prevention Some medical conditions and lifestyle choices can lead to a higher risk for a stroke. You can help to prevent a stroke by making nutrition, lifestyle, and other changes. What nutrition changes can be made? Eat healthy foods. ?Choose foods that are high in fiber. These include: ?Fresh fruits. ?Fresh vegetables. ?Whole grains. ?Eat at least 5 or more servings of fruits and vegetables each day. Try to fill half of your plate at each meal with fruits and vegetables. ?Choose lean protein foods. These include: ?Lowfat (lean) cuts of meat. ?Chicken without skin. ?Fish. ?Tofu. ?Beans. ?Nuts. ?Eat low-fat dairy products. ?Avoid foods that: ?Are high in salt (sodium). ?Have saturated fat. ?Have trans fat. ?Have cholesterol. ?Are processed. ?Are premade. Follow eating guidelines as told by your doctor. These may include: ?Reducing how many calories you eat and drink each day. ?Limiting how much salt you eat or drink each day to 1,500 milligrams (mg). ?Using only healthy fats for cooking. These include: ?[place] oil. ?Canola oil. ?[place] oil. ?Counting how many carbohydrates you eat and drink each day. What lifestyle changes can be made? Try to stay at a healthy weight. Talk to your doctor about what a good weight is for you. Get at least 30 minutes of moderate physical activity at least 5 days a week. This can include: ?Fast walking. ?Biking. ?Swimming. Do not use any products that have nicotine or tobacco. This includes cigarettes and e-cigarettes. If you need help quitting, ask your doctor. Avoid being around tobacco smoke in general. Limit how much alcohol you drink to no more than 1 drink a day for non women and 2 drinks aday for men. One drink equals 12 oz of beer, 5 oz of wine, or 1 oz of hard liquor. Do not use drugs. Avoid taking control pills. Talk to your doctor about the risks of taking control pillsif: ?You are over 35 years old. ?You smoke. ?You get migraines. ?You have had a blood clot. What other changes can be made? Manage your cholesterol. ?It is important to eat a healthy diet. ?If your cholesterol cannot be managed through your diet, you may also need to take medicines. Takemedicines as told by your doctor. Manage your diabetes. ?It is important to eat a healthy diet and to exercise regularly. ?If your blood sugar cannot be managed through diet and exercise, you may need to take medicines. Take medicines as told by your doctor. Control your high blood pressure (hypertension). ?Try to keep your blood pressure below 130/80. This can help lower your risk of stroke. ?It is important to eat a healthy diet and to exercise regularly. ?If your blood pressure cannot be managed through diet and exercise, you may need to take medicines. Take medicines as told by your doctor. ?Ask your doctor if you should check your blood pressure at home. ?Have your blood pressure checked every year. Do this even if your blood pressure is normal. Talk to your doctor about getting checked for a sleep disorder. Signs of this can include: ?Snoring a lot. ?Feeling very tired. Take lrpr-mdg-blityvg and prescription medicines only as told by your doctor. These may include aspirin or blood thinners (antiplatelets or anticoagulants). Make sure that any other medical conditions you have are managed. Where to find more information [place] [employer] Association: www.strokeassociation.org National Stroke Association: www.stroke.org Get help right away if: You have any symptoms of stroke. BE FAST is an easy way to remember the main warning signs: ?B - Balance. Signs are dizziness, sudden trouble walking, or loss of balance. ?E - Eyes. Signs are trouble seeing or a sudden change in how you see. ?F - Face. Signs are sudden weakness or loss of feeling of the face, or the face or eyelid droopingon one side. ?A - Arms. Signs are weakness or loss of feeling in an arm. This happens suddenly and usually on one side of the body. ?S - Speech. Signs are sudden trouble speaking, slurred speech, or trouble understanding what people say. ?T - Time. Time to call emergency services. Write down what time symptoms started. You have other signs of stroke, such as: ?A sudden, very bad headache with no known cause. ?Feeling sick to your stomach (nausea). ?Throwing up (vomiting). ?Jerky movements you cannot control (seizure). These symptoms may represent a serious problem that is an emergency. Do not wait to see if the symptoms will go away. Get medical help right away. Call your local emergency services (911 in the [place] Do not drive yourself to the hospital. Summary You can prevent a stroke by eating healthy, exercising, not smoking, drinking less alcohol, and treating other health problems, such as diabetes, high blood pressure, or high cholesterol. Do not use any products that contain nicotine or tobacco, such as cigarettes and e-cigarettes. Get help right away if you have any signs or symptoms of a stroke. This information is not intended to replace advice given to you by your health care provider. Make sure you discuss any questions you have with your health care provider. Document Released: 02/07/2013 Document Revised: 10/05/2019 Document Reviewed: 11/10/2017 [employer] Patient Education 2020 [employer] Follow Up Care 03/10/2022 18:33:21 With:Follow up with primary care provider Address: When:5 to 7 days With:[facility] Address: When: Unknown Comments:f/u in 4-6 weeks With:Abiola Mckeon, [id number] Address: When: Unknown Comments:Rehab room 142 With:KATHY OLSON MD, [facility], Surgery, Vascular Surgeons Address: [address] [address] [phone] When: only if needed Comments:call for appt 3mos With:[facility] Address: When: Unknown Comments:A 30-day event monitor (CardioNet) will be mailed to your home. Results can be obtained by Outpatient Neurology [facility] 07-24-2022 Note Discharge Instructions Thank you for allowing [facility] to assist you with your healthcare needs. The following is importantdischarge information regarding your hospital visit. Your Care Team PHYSICIAN, NONE Your Diagnosis Potential stroke What to do next Instructions From Your Doctor - You will be started on daily aspirin, statin, as well as losartan. Please take medication as prescribed. -Being discharged to [facility] for temporary rehab - Please follow-up with-neurology 4-6 weeks and vascular surgery in the outpatient setting if needed - Please follow up with your PCP within 5-7 days. - If you begin to have worsening or recurring symptoms, please return to the nearest ER Follow Up Appointments Follow Up with Follow up with primary care provider When Within 5 to 7 days Where: Follow Up with [facility] When Why: f/u in 4-6 weeks Where: Follow Up with Abiola Mckeon, [id number] When Why: Rehab room 142 Where: Follow Up with KATHY OLSON MD, [facility], Surgery, Vascular Surgeons When Only if needed Why: call for appt 3mos Where: [id number] [facility] [place] [place] [address] [phone] Follow Up with [facility] When Why: A 30-day event monitor (CardioNet) will be mailed to your home. Results can be obtained by Outpatient Neurology Where: The Following Activity and Diet Have Been Ordered for You Discharge Activity - Ordered -- Activity As Tolerated, 03/15/22 11:15:00 EDT Transfer of Care Activity - Ordered -- Activity As Tolerated, 03/15/22 11:15:00 EDT Discharge Diet - Ordered -- Type of Diet: Regular, 03/15/22 11:15:00 EDT Transfer of Care Diet - Ordered -- Type of Diet: Regular Diet, 03/15/22 11:15:00 EDT The Following Equipment Has Been Ordered for You No qualifying data available. The Following Treatments Have Been Ordered for You Discharge Labs Transfer of Care Labwork - Ordered -- cbc, cmp cmp, elevated T Bili, follow-up within: 1 week, Results Notify to: own pcp, 03/15/22 11:15:00 EDT Discharge Radiology No qualifying data available. Other Therapies No qualifying data available. Post Acute Orders Transfer of Care Code Status - Ordered -- Full Code, Constant Order Transfer of Care Labwork - Ordered -- cbc, cmp cmp, elevated T Bili, follow-up within: 1 week, Results Notify to: own pcp, 03/15/22 11:15:00 EDT Transfer of Care Orders Electronically Signed By - Ordered -- 03/15/22 11:15:00 EDT, TRINA QUINTANILLA MD Transfer of Care Prognosis - Ordered -- Fair, Patient Aware: Yes Transfer of Care Rehab Potential - Ordered -- Rehab potential fair, 03/15/22 11:15:37 EDT Someone Will Contact You Regarding These Home Health Referrals No home referrals have been ordered for you. No one will call you. Allergies NKA Medications Please ask your primary doctor or pharmacist before taking any other medication not listed, including over the counter drugs, herbal medications, vitamins and or supplements as they may interact withyour home medications. What How Much When Instructions Last Dose New aspirin (aspirin 81 mg oral delayed release tablet) 1 tab(s) by mouth Once a day Duration: 30 Days Refills: 3 Pickup at [facility] #[id number] New atorvastatin (atorvastatin 80 mg oral tablet) 1 tab(s) by mouth Once a day Duration: 30 Days Refills: 2 Pickup at [facility] #[id number] New losartan (losartan 25 mg oral tablet) 1 tab(s) by mouth Once a day Duration: 30 Days Refills: 2 Pickup at [facility] #[id number] Pharmacy Information [id number]: [address] [place], [place] [phone] [phone] What How Much When Comments Stop Taking diphenhydrAMINE (Benadryl 25 mg oral tablet) 1 tab(s) by mouth Every 6 hours as needed for Itching Stop Taking metoprolol (metoprolol tartrate 25 mg oral tablet) 1 tab(s) by mouth Two (2) times a day Stop Taking multivitamin (Multivitamin) 1 tab(s) by mouth Once a day Stop Taking triamcinolone topical (triamcinolone 0.1% topical cream) 1 application Topical Two (2) times a day Please take this list to your next doctor s visit. Bring all medications you take, including over the counter medications, herbals and other supplements with you to your doctor s visit. Patients and families are reminded to discard old lists and to update any records with all medication providers or retail pharmacies. Education Materials Stroke Prevention Some medical conditions and lifestyle choices can lead to a higher risk for a stroke. You can help to prevent a stroke by making nutrition, lifestyle, and other changes. What nutrition changes can be made? Eat healthy foods. ? Choose foods that are high in fiber. These include: ? Fresh fruits. ? Fresh vegetables. ? Whole grains. ? Eat at least 5 or more servings of fruits and vegetables each day. Try to fill half of your plate at each meal with fruits and vegetables. ? Choose lean protein foods. These include: ? Lowfat (lean) cuts of meat. ? Chicken without skin. ? Fish. ? Tofu. ? Beans. ? Nuts. ? Eat low-fat dairy products. ? Avoid foods that: ? Are high in salt (sodium). ? Have saturated fat. ? Have trans fat. ? Have cholesterol. ? Are processed. ? Are premade. Follow eating guidelines as told by your doctor. These may include: ? Reducing how many calories you eat and drink each day. ? Limiting how much salt you eat or drink each day to 1,500 milligrams (mg). ? Using only healthy fats for cooking. These include: ? [place] oil. ? Canola oil. ? [place] oil. ? Counting how many carbohydrates you eat and drink each day. What lifestyle changes can be made? Try to stay at a healthy weight. Talk to your doctor about what a good weight is for you. Get at least 30 minutes of moderate physical activity at least 5 days a week. This can include: ? Fast walking. ? Biking. ? Swimming. Do not use any products that have nicotine or tobacco. This includes cigarettes and e-cigarettes. If you need help quitting, ask your doctor. Avoid being around tobacco smoke in general. Limit how much alcohol you drink to no more than 1 drink a day for non women and 2 drinks aday for men. One drink equals 12 oz of beer, 5 oz of wine, or 1 oz of hard liquor. Do not use drugs. Avoid taking control pills. Talk to your doctor about the risks of taking control pillsif: ? You are over 35 years old. ? You smoke. ? You get migraines. ? You have had a blood clot. What other changes can be made? Manage your cholesterol. ? It is important to eat a healthy diet. ? If your cholesterol cannot be managed through your diet, you may also need to take medicines. Take medicines as told by your doctor. Manage your diabetes. ? It is important to eat a healthy diet and to exercise regularly. ? If your blood sugar cannot be managed through diet and exercise, you may need to take medicines. Take medicines as told by your doctor. Control your high blood pressure (hypertension). ? Try to keep your blood pressure below 130/80. This can help lower your risk of stroke. ? It is important to eat a healthy diet and to exercise regularly. ? If your blood pressure cannot be managed through diet and exercise, you may need to take medicines.Take medicines as told by your doctor. ? Ask your doctor if you should check your blood pressure at home. ? Have your blood pressure checked every year. Do this even if your blood pressure is normal. Talk to your doctor about getting checked for a sleep disorder. Signs of this can include: ? Snoring a lot. ? Feeling very tired. Take yqnd-xgs-uzebvyr and prescription medicines only as told by your doctor. These may include aspirin or blood thinners (antiplatelets or anticoagulants). Make sure that any other medical conditions you have are managed. Where to find more information [place] [employer]: www.strokeassociation.org National Stroke Association: www.stroke.org Get help right away if: You have any symptoms of stroke. BE FAST is an easy way to remember the main warning signs: ? B - Balance. Signs are dizziness, sudden trouble walking, or loss of balance. ? E - Eyes. Signs are trouble seeing or a sudden change in how you see. ? F - Face. Signs are sudden weakness or loss of feeling of the face, or the face or eyelid drooping on one side. ? A - Arms. Signs are weakness or loss of feeling in an arm. This happens suddenly and usually on oneside of the body. ? S - Speech. Signs are sudden trouble speaking, slurred speech, or trouble understanding what peoplesay. ? T - Time. Time to call emergency services. Write down what time symptoms started. You have other signs of stroke, such as: ? A sudden, very bad headache with no known cause. ? Feeling sick to your stomach (nausea). ? Throwing up (vomiting). ? Jerky movements you cannot control (seizure). These symptoms may represent a serious problem that is an emergency. Do not wait to see if the symptoms will go away. Get medical help right away. Call your local emergency services (911 in the [place] Do not drive yourself to the hospital. Summary You can prevent a stroke by eating healthy, exercising, not smoking, drinking less alcohol, and treating other health problems, such as diabetes, high blood pressure, or high cholesterol. Do not use any products that contain nicotine or tobacco, such as cigarettes and e-cigarettes. Get help right away if you have any signs or symptoms of a stroke. This information is not intended to replace advice given to you by your health care provider. Make sure you discuss any questions you have with your health care provider. Document Released: 02/07/2013 Document Revised: 10/05/2019 Document Reviewed: 11/10/2017 Elsevier Patient Education 2020 [employer] Additional Information VACCINATE! IT SAVES LIVES! Members of the community who have not yet received the COVID-19 vaccine and would like to receive it can visit one of [facility] vaccine clinics. There are many vaccine clinic locations within the [facility]. For locations and available times, please visit [email or web address]/. It is important to note that some COVID mobile vaccine clinics are held outdoors and may be canceled in rainy or stormy conditions. To learn more about pediatric vaccinations (ages 5-11), we invite you to visit the [facility] webpage. [email or web address]/[email or web address] [email or web address] learn more about the COVID-19 vaccine, we invite you to visit the [facility] website for a list of frequently asked questions. [email or web address] [facility] Patient Portal Access Instructions: Stay connected with your healthcare team and access your personal medical information anytime with the [facility] Patient Portal.If you would like a full copy of your medical records, please contact the [facility] Medical Records Department, Wednesday through Wednesday between 8a.m. and 4:30p.m. Please follow the directions below to access the portal: 1.Access the email account you provided upon registration to the hospital.2.Look for an invitation email from [facility].3.Open the email and access the invitation link: Accept Invitation to [facility]4.Fill in the required zamarripa to create your account. Sign into [email or web address] with your username and password that you created in the above steps to stay up to date. You can then view a summary of results, a summary of your visits, and the ability to download your summaries to your computer or send the information securely to a physician. Remember that your healthcare information is confidential, so carefully consider who you will allow to register on the [facility] Patient Portal for access to your information. You can also access the [facility] Patient Portal on the [employer] miky. Simply click on Health Records under [employer] and then click on the [facility] logo. HOW TO SAFELY DISPOSE OF PRESCRIPTION MEDICATIONS Please use one of the following methods to safely dispose of your unused medications. 1.Use a drug disposal kit: the drug disposal pouch allows you to safely discard your old and unuseddrugs. Ask your nurse to give you one when you are discharged.2.Visit a local take-back location: Many local pharmacies and police departments have programs that collect old and unwanted prescriptiondrugs. Call your local pharmacy or go to http://[email or web address]/1A8Ao0k to find one close to you.3.Make use of household items: Use cat litter or old coffee grounds to dispose medications if other options arenot available. Mix your drugs with these household products, seal them in an airtight container andthrow it into the garbage. Call [facility]: [phone] to be sure your drugs can be disposed of in this way. Some medicines may require a different approach.4.Never flush your medications down the toilet. IF YOU HAVE BEEN PRESCRIBED AN OPIOID FOR PAIN If you have been prescribed an opioid (such as hydrocodone, oxycodone or morphine), it is critical to understand the possible side effects and risks of opioid pain medications. Even when taken as directed, opioids can have several side effects including: Tolerance, meaning you might need to take more of a medication for the same pain relief. Nausea, vomiting and/or constipation. Sleepiness, dizziness, dry mouth, confusion, depression or itching. Physical dependence, meaning you have withdrawal symptoms when a medication is stopped, can develop within a few days. KNOW YOUR RESPONSIBILITIES It is important to know exactly how much and how often to take the opioid pain medications you are prescribed. Never take opioids in higher amounts or more often than prescribed. Do not combine opioids with alcohol or other drugs that cause drowsiness, such as benzodiazepines, also known as benzos, including diazepam and alprazolam, muscle relaxants or sleep aids. Never sell or share prescription opioids. This is illegal. Store opioids in a secure place and out of reach of others (including children, family, friends and visitors). The last page of this document has been signed and retained as a CHART COPY. Signatures Patient Education Materials Stroke Prevention, Eoma-bc-Etfu Medication Leaflets My discharge plan and instructions have been reviewed and explained to me and IJUDIT PATRICK N understand my current condition and have read and understand these discharge instructions. I have received a written copy of the plan/instructions. If I have questions, I am aware that I should contact my doctor. 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 The following is importantdischarge information regarding your hospital visit. Your Care Team PHYSICIAN, NONE Your Diagnosis Potential stroke What to do next Instructions From Your Doctor - You will be started on daily aspirin, statin, as well as losartan. Please take medication as prescribed. -Being discharged to [place] for temporary rehab - Please follow-up with-neurology 4-6 weeks and vascular surgery in the outpatient setting if needed - Please follow up with your PCP within 5-7 days. - If you begin to have worsening or recurring symptoms, please return to the nearest ER Follow Up Appointments Follow Up with Follow up with primary care provider When Within 5 to 7 days Where: Follow Up with [facility] [place] When Why: f/u in 4-6 weeks Where: Follow Up with Abiola Mckeon, [id number] When Why: Rehab room 142 Where: Follow Up with KATHY OLSON MD, [facility], Surgery, Vascular Surgeons When Only if needed Why: call for appt 3mos Where: [address] [facility] [address] [facility] [place] [address] [id number] Follow Up with [facility] When Why: A 30-day event monitor ([facility]) will be mailed to your home. Results can be obtained by Outpatient Neurology Where: The Following Activity and Diet Have Been Ordered for You Discharge Activity - Ordered -- Activity As Tolerated, 03/15/22 11:15:00 EDT Transfer of Care Activity - Ordered -- Activity As Tolerated, 03/15/22 11:15:00 EDT Discharge Diet - Ordered -- Type of Diet: Regular, 03/15/22 11:15:00 EDT Transfer of Care Diet - Ordered -- Type of Diet: Regular Diet, 03/15/22 11:15:00 EDT The Following Equipment Has Been Ordered for You No qualifying data available. The Following Treatments Have Been Ordered for You Discharge Labs Transfer of Care Labwork - Ordered -- cbc, cmp cmp, elevated T Bili, follow-up within: 1 week, Results Notify to: own pcp, 03/15/22 11:15:00 EDT Discharge Radiology No qualifying data available. Other Therapies No qualifying data available. Post Acute Orders Transfer of Care Code Status - Ordered -- Full Code, Constant Order Transfer of Care Labwork - Ordered -- cbc, cmp cmp, elevated T Bili, follow-up within: 1 week, Results Notify to: own pcp, 03/15/22 11:15:00 EDT Transfer of Care Orders Electronically Signed By - Ordered -- 03/15/22 11:15:00 EDT, TRINA QUINTANILLA MD Transfer of Care Prognosis - Ordered -- Fair, Patient Aware: Yes Transfer of Care Rehab Potential - Ordered -- Rehab potential fair, 03/15/22 11:15:37 EDT Someone Will Contact You Regarding These Home Health Referrals No home referrals have been ordered for you. No one will call you. Allergies NKA Medications Please ask your primary doctor or pharmacist before taking any other medication not listed, including over the counter drugs, herbal medications, vitamins and or supplements as they may interact withyour home medications. What How Much When Instructions Last Dose New aspirin (aspirin 81 mg oral delayed release tablet) 1 tab(s) by mouth Once a day Duration: 30 Days Refills: 3 Printed Prescription New atorvastatin (atorvastatin 80 mg oral tablet) 1 tab(s) by mouth Once a day Duration: 30 Days Refills: 2 Printed Prescription New losartan (losartan 25 mg oral tablet) 1 tab(s) by mouth Once a day Duration: 30 Days Refills: 2 Printed Prescription What How Much When Comments Stop Taking diphenhydrAMINE (Benadryl 25 mg oral tablet) 1 tab(s) by mouth Every 6 hours as needed for Itching Stop Taking metoprolol (metoprolol tartrate 25 mg oral tablet) 1 tab(s) by mouth Two (2) times a day Stop Taking multivitamin (Multivitamin) 1 tab(s) by mouth Once a day Stop Taking triamcinolone topical (triamcinolone 0.1% topical cream) 1 application Topical Two (2) times a day Please take this list to your next doctor s visit. Bring all medications you take, including over the counter medications, herbals and other supplements with you to your doctor s visit. Patients and families are reminded to discard old lists and to update any records with all medication providers or retail pharmacies. Additional Information VACCINATE! IT SAVES LIVES! Members of the community who have not yet received the COVID-19 vaccine and would like to receive it can visit one of [facility] vaccine clinics. There are many vaccine clinic locations within the [facility]. For locations and available times, please visit [email or web address]/. It is important to note that some COVID mobile vaccine clinics are held outdoors and may be canceled in rainy or stormy conditions. To learn more about pediatric vaccinations (ages 5-11), we invite you to visit the [facility] webpage. [email or web address] [email or web address] learn more about the COVID-19 vaccine, we invite you to visit the [facility] website for a list of frequently asked questions. [email or web address] [facility] Patient Portal Access Instructions: Stay connected with your healthcare team and access your personal medical information anytime with the [facility] Patient Portal.If you would like a full copy of your medical records, please contact the [facility] Medical Records Department, Wednesday through Wednesday between 8a.m. and 4:30p.m. Please follow the directions below to access the portal: 1.Access the email account you provided upon registration to the [facility].2.Look for an invitation email from [facility].3.Open the email and access the invitation link: Accept Invitation to [facility]4.Fill in the required zamarripa to create your account. Sign into [email or web address] with your username and password that you created in the above steps to stay up to date. You can then view a summary of results, a summary of your visits, and the ability to download your summaries to your computer or send the information securely to a physician. Remember that your healthcare information is confidential, so carefully consider who you will allow to register on the [facility] Patient Portal for access to your information. You can also access the [facility] Patient Portal on the [employer] Simply click on Health Records under Insurity and then click on the [employer] logo. HOW TO SAFELY DISPOSE OF PRESCRIPTION MEDICATIONS Please use one of the following methods to safely dispose of your unused medications. 1.Use a drug disposal kit: the drug disposal pouch allows you to safely discard your old and unuseddrugs. Ask your nurse to give you one when you are discharged.2.Visit a local take-back location: Many local pharmacies and police departments have programs that collect old and unwanted prescriptiondrugs. Call your local pharmacy or go to http://[email or web address]/[email or web address] to find one close to you.3.Make use of household items: Use cat litter or old coffee grounds to dispose medications if other options arenot available. Mix your drugs with these household products, seal them in an airtight container andthrow it into the garbage. Call [facility]: [phone] to be sure your drugs can be disposed of in this way. Some medicines may require a different approach.4.Never flush your medications down the toilet. IF YOU HAVE BEEN PRESCRIBED AN OPIOID FOR PAIN If you have been prescribed an opioid (such as hydrocodone, oxycodone or morphine), it is critical to understand the possible side effects and risks of opioid pain medications. Even when taken as directed, opioids can have several side effects including: Tolerance, meaning you might need to take more of a medication for the same pain relief. Nausea, vomiting and/or constipation. Sleepiness, dizziness, dry mouth, confusion, depression or itching. Physical dependence, meaning you have withdrawal symptoms when a medication is stopped, can develop within a few days. KNOW YOUR RESPONSIBILITIES It is important to know exactly how much and how often to take the opioid pain medications you are prescribed. Never take opioids in higher amounts or more often than prescribed. Do not combine opioids with alcohol or other drugs that cause drowsiness, such as benzodiazepines, also known as benzos, including diazepam and alprazolam, muscle relaxants or sleep aids. Never sell or share prescription opioids. This is illegal. Store opioids in a secure place and out of reach of others (including children, family, friends and visitors). The last page of this document has been signed and retained as a CHART COPY. Signatures Patient Education Materials Medication Leaflets My discharge plan and instructions have been reviewed and explained to me and I,JUDIT MONICA Paul understand my current condition and have read and understand these discharge instructions. I have received a written copy of the plan/instructions. If I have questions, I am aware that I should contact my doctor. 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 Pt was last know to be normal last night when he went to bed. He states that he woke up the morning of admission at about 9:00 AM, could not move his right arm and when he attempted to get up, he couldn't due to weakness of his legs. Her symptoms got worse, he noted slurred speech and called his nephew who called EMS. In ED, vitals were stable except BP 185/106. Labs were unremarkable. CT head/brain no contrast was negative, no intracranial bleed. CT angiography head and neck showed right A2 segment occlusion. Mild to moderate left post commu nicating P2 aspirate, no acute arterial abnormality of the neck. Approximately 55% left and 20% right ICA stenosis. CXR was negative, EKG showed sinus tachycardia. Out of window for tPA. Pt was givenASA 325 mg in ED and admitted to [facility] for evaluation of stroke. He was started on high dose atorvastatin. Permissive hypertension was allowed for 24 hours, thereafter started on losartan 25 mg. TTE revealed an EF of 50-55%, grade 1 diastolic dysfunction. No PFO was present. Neurology was following during hospital stay. MRI without contrast revealed acute ischemic infarction of the left periventricular caudothalamic groove region. Severe chronic microvascular angiopathy. Patient had worsening symptoms on his right arm on the morning of 03/[address] scan was donethat showed expected evolution of the left periventricular infarct without hemorrhagic transformation. Patient did well throughout that day and then on the night of 03/14 he complained of bilateral le g weakness. Another repeat CT scan was done with no intracranial hemorrhage or mass-effect. Multifocal infarcts similar to prior study. He responded well to a small bolus of normal saline. Weakness partially attributed to possible dehydration, worked with physical therapy and evolving stroke. Vascular surgery was consulted in light of the CTA findings, which could possibly contribute to hisstroke. They recommended to keep patient on aspirin and statin, no need for antidual platelet therapy. Additionally, patient had a history of alcohol abuse, drinking 12 packs of beer daily. His last drink was 2 days prior to admission. He was started on CIWA protocol without Ativan however during his first night he scored a 5 on CIWA and a dose of Ativan 0.5 mg was administrated. On day of discharge, patient stable. No worsening symptoms. Was seen by neurology on day of discharge as well, who are okay for patient to go to a rehab later today. Patient being discharged to rehab facility [place] Patient to follow-up with primary care physician in 5 to 7 days. Being discharged on aspirin, high-dose statin, losartan. To be discharged on 30-day CardioNet monitor to screen for atrial fibrillation To follow-up with [facility] in 4 to 6 weeks Allergies NKA Consults Consult to Case Management/Social Service (Case Management/Social Service Consult) (Consult to CaseManagement) - Ordered -- 03/11/22 6:52:00 EDT, Discharge Planning Consult to Physician - Ordered -- 03/11/22 0:53:00 EDT, JOSAFAT PRASAD MD, Routine, TIA Consult to Physician - Ordered -- 03/13/22 12:54:00 EDT, WHITNEY, KATHY PRITCHETT, Routine, Acute ischemic stroke, carotid stenosis Imaging Results and Diagnostics CT Head or Brain w/o Contrast Result Date: March 14, 2022 Verified By: BJ DUARTE MD CLINICAL STATEMENT: IMPRESSION: No intracranial hemorrhage. No mass effect Multifocal infarcts and significant white matter disease are similar to theprior study CT Head or Brain w/o Contrast Result Date: March 13, 2022 Verified By: BARNEY APONTE MD CLINICAL STATEMENT: IMPRESSION: Expected evolution of left periventricular infarct without hemorrhagictransformation. MRI Brain w/o Contrast Result Date: March 12, 2022 Verified By: EZEQUIEL APONTE DO CLINICAL STATEMENT: IMPRESSION: Acute ischemic infarction of the left periventricular caudothalamic grooveregion. Severe chronic microvascular angiopathy. Volume loss. Communication was initiated by this physician via the radiology resultscommunication center in PACS at 7:12 pm on 03/12/2022 to be communicated to alicensed caregiver. The CT Angiography Neck w/ Contrast Result Date: March 10, 2022 Verified By: EZEQUIEL APONTE DO CLINICAL STATEMENT: IMPRESSION: Right A2 segment occlusion. Mild to moderate left post communicating P2 aspirate No acute arterial abnormality of the neck. Approximately 55% left and 20% right ICA stenosis. Findings were discussed with Dr. SHERIF ARGUELLO at 8:56 pm on 03/10/2022. CT Angiography Head w/ Contrast Result Date: March 10, 2022 Verified By: EZEQUIEL APONTE DO CLINICAL STATEMENT: IMPRESSION: Right A2 segment occlusion. Mild to moderate left post communicating P2 aspirate No acute arterial abnormality of the neck. Approximately 55% left and 20% right ICA stenosis. Findings were discussed with Dr. SHERIF ARGUELLO at 8:56 pm on 03/10/2022. CT Head or Brain w/o Contrast Result Date: March 10, 2022 Verified By: EZEQUIEL APONTE DO CLINICAL STATEMENT: IMPRESSION: No acute intracranial abnormality. Chronic microvascular angiopathy andvolume loss. XR Chest 1 View Result Date: March 10, 2022 Verified By: SEMAJ APONTE DO CLINICAL STATEMENT: IMPRESSION: No acute cardiopulmonary findings. Physical Exam Vitals and Measurements T: 36.4 C (Oral) TMIN: 36.4 C (Oral) TMAX: 36.7 C (Oral) HR: 82 RR: 18 BP: 154/82 SpO2: 96% HT: 172.7 cm WT: 84.5 kg BMI: 28.33 Weight Dosing Weight: 84.5 kg (03/14/22) Dosing Weight: 84.5 kg (03/11/22) GEN: NAD. Well appearing. Alert. Interactive. Good hygiene. +dysarthria but improved. HEENT: NC/AT. PERRLA, EOMI. Normal external auditory canal and tympanic membrane. Nares patent, normal nasal mucosa. MMM, normal oropharynx. NECK: Supple. Normal ROM. Trachea midline. No LAD, no thyromegaly. RESPIRATORY: Normal respiratory effort. CTABL. No wheezing, rhonchi or rales. CVS: RRR. Normal S1/S2. No M/R/G. No JVD. No carotid bruits. ABDOMEN: Soft, non-tender, non-distended. +BS. No hepatosplenomegaly. EXTREMITIES: No cyanosis, clubbing or edema. Normal tone and ROM. Right-sided weakness of upper extremity 3/5 but improved. left arm strength 5/5. Capillary refill <2s. 2+ distal pulses B/L. Abnormal right-sided nose to finger test. NEURO: AAOx3. Right facial droop but improved. cranial nerves II to XII intact. Sensation normal. Reflex symmetric. SKIN: Warm. Intact. No rashes, lesions or erythema. Code Status Code Status - Ordered -- 03/10/22 22:17:00 EDT, Full Code, Constant Order Admission Date 03/10/22 Discharge Date 03/15/22 Patient Instructions - You will be started on daily aspirin, statin, as well as losartan. Please take medication as prescribed. -Being discharged to [place] for temporary rehab - Please follow-up with-neurology 4-6 weeks and vascular surgery in the outpatient setting if needed - Please follow up with your PCP within 5-7 days. - If you begin to have worsening or recurring symptoms, please return to the nearest ER Medications New Prescription aspirin (aspirin 81 mg oral delayed release tablet)1 tab(s) by mouth once a day for 30 Days. Refills: 3. atorvastatin (atorvastatin 80 mg oral tablet)1 tab(s) by mouth once a day for 30 Days. Refills: 2. losartan (losartan 25 mg oral tablet)1 tab(s) by mouth once a day for 30 Days. Refills: 2. Discontinued diphenhydrAMINE (Benadryl 25 mg oral tablet)1 tab(s) by mouth every 6 hours as needed Itching. metoprolol (metoprolol tartrate 25 mg oral tablet)1 tab(s) by mouth two (2) times a day. multivitamin (Multivitamin)1 tab(s) by mouth once a day. triamcinolone topical (triamcinolone 0.1% topical cream)1 application Topical two (2) times a day. Follow Up Follow Up with Follow up with primary care provider When Within 5 to 7 days Where: Follow Up with [facility] [place] When Why: f/u in 4-6 weeks Where: Follow Up with Abiola Mckeon, [id number] When Why: Rehab room 142 Where: Follow Up with KATHY OLSON MD, [facility], Surgery, [facility] Surgeons When Only if needed Why: call for appt 3mos Where: [id number] [facility] [address] [facility] [place] [address] [id number] Follow Up with [facility] When Why: A 30-day event monitor ([facility]) will be mailed to your home. Results can be obtained by Outpatient Neurology Where: Follow Up Appointments No qualifying data available. Follow Up Labs/Studies Discharge Labs Transfer of Care Labwork - Ordered -- cbc, cmp cmp, elevated T Bili, follow-up within: 1 week, Results Notify to: own pcp, 03/15/22 11:15:00 EDT Discharge Studies No Follow-up Studies Discharge Diet Discharge Diet - Ordered -- Type of Diet: Regular, 03/15/22 11:15:00 EDT Transfer of Care Diet - Ordered -- Type of Diet: Regular Diet, 03/15/22 11:15:00 EDT Discharge Activity Discharge Activity - Ordered -- Activity As Tolerated, 03/15/22 11:15:00 EDT Transfer of Care Activity - Ordered -- Activity As Tolerated, 03/15/22 11:15:00 EDT Condition on Discharge Rehab Discharge Disposition Fair Digitally Signed by GERA DASH MD on 03/15/2022 12:44 PM Digitally Signed by TRINA QUINTANILLA MD [id number] Note Date of Service 03/14/2022 Subjective Patient was seen at bedside. No acute events overnight. Patient showed mild improvement dysarthria,facial droop and right shoulder strength. Reported arm weakness about the same, unable to open hand. However he had reported decrease in difficulty eating his food and decreased tremors. Patient is able nicholas denied any changes in vision, dizziness, chest pain, nausea, vomiting, palpitations and shortness of breath. At 5 PM, was called to patient's room to update the brother. When speaking to the brother, patient had mentioned that he has been feeling increased weakness in his legs, as well as trouble walking. This started after his appointment with occupational therapy and according to him at worsened. At this time, he denied any headaches, loss of sensation, and changes in vision. Patient was given a fluidbolus and stat CT scan. Objective Vitals and Measurements T: 36.5 C (Oral) TMIN: 36.5 C (Oral) TMAX: 36.8 C (Oral) HR: 83(Monitored) RR: 18 BP: 155/77 SpO2: 97% HT: 172.7 cm WT: 84.5 kg BMI: 28.33 Intake and Output 7AM Yesterday to 7AM Today Intake and Output (Last 24 hours) Intake Output Urine Voided 500.00 Stool Count 1.00 Urine Count 6.00 Emesis Count 0.00 Total Summary Total Intake 0.00 Total Output 500.00 Fluid Balance -500.00 Physical Exam 9am GEN: NAD. Well appearing. Alert. Interactive. Good hygiene. +dysarthria but improved. HEENT: NC/AT. PERRLA, EOMI. Normal external auditory canal and tympanic membrane. Nares patent, normal nasal mucosa. MMM, normal oropharynx. NECK: Supple. Normal ROM. Trachea midline. No LAD, no thyromegaly. RESPIRATORY: Normal respiratory effort. CTABL. No wheezing, rhonchi or rales. CVS: RRR. Normal S1/S2. No M/R/G. No JVD. No carotid bruits. ABDOMEN: Soft, non-tender, non-distended. +BS. No hepatosplenomegaly. EXTREMITIES: No cyanosis, clubbing or edema. Normal tone and ROM. Right-sided weakness of upper extremity 3/5 but improved. left arm strength 5/5. Capillary refill <2s. 2+ distal pulses B/L. Abnormal right-sided nose to finger test. Unable to do right knee to leon test. NEURO: AAOx3. Right facial droop but improved. cranial nerves II to XII intact. Sensation normal. Reflex symmetric. Gait normal. SKIN: Warm. Intact. No rashes, lesions or erythema. 5pm GEN: NAD. Well appearing. Alert. Interactive. Good hygiene. +dysarthria but improved. HEENT: NC/AT. PERRLA, EOMI. Normal external auditory canal and tympanic membrane. Nares patent, normal nasal mucosa. MMM, normal oropharynx. NECK: Supple. Normal ROM. Trachea midline. No LAD, no thyromegaly. RESPIRATORY: Normal respiratory effort. CTABL. No wheezing, rhonchi or rales. CVS: RRR. Normal S1/S2. No M/R/G. No JVD. No carotid bruits. ABDOMEN: Soft, non-tender, non-distended. +BS. No hepatosplenomegaly. EXTREMITIES: No cyanosis, clubbing or edema. Right-sided weakness of upper extremity 3/5. Unable toopen right hand. left arm strength 5/5. Right-sided lower extremity weakness 4-/5.increased tone ofright leg. Unable to flex or extend at the knee of the right leg. Left-sided weakness 5-/5capillaryrefill <2s. 2+ distal pulses B/L. Abnormal right-sided nose to finger test. NEURO: AAOx3. Right facial droop but improved. cranial nerves II to XII intact. Sensation normal. Reflex symmetric. Gait normal. SKIN: Warm. Intact. No rashes, lesions or erythema. Weight Dosing Weight: 84.5 kg (03/14/22) Dosing Weight: 84.5 kg (03/11/22) Medications Medications (5) Active Scheduled: (4) aspirin 81 mg Chewable 81 mg 1 tab(s), Oral, qDayM atorvastatin 80 mg tablet 80 mg 1 tab(s), Oral, qDay heparin 5,000 units/mL (1 mL) vial 5,000 unit(s) 1 mL, Subcutaneous, q8h losartan 25 mg tablet 25 mg 1 tab(s), Oral, qDay Continuous: (0) PRN: (1) melatonin 3 mg tablet 3 mg 1 tab(s), Oral, qHS Lab Results 03/14 06:56 WBC: 9.4 Hgb: 15.7 Hct: 45.4 Platelet: 272 Neutrophil %: 63.4 Glucose Level: 101 Sodium Level: 143 Potassium Level: 3.9 BUN: 17.0 Creatinine Lvl (s): 0.76 Imaging Results and Diagnostics CT Head or Brain w/o Contrast Result Date: March 14, 2022 Verified By: BJ DUARTE MD CLINICAL STATEMENT: IMPRESSION: No intracranial hemorrhage. No mass effect Multifocal infarcts and significant white matter disease are similar to theprior study CT Head or Brain w/o Contrast Result Date: March 13, 2022 Verified By: BARNEY APONTE MD CLINICAL STATEMENT: IMPRESSION: Expected evolution of left periventricular infarct without hemorrhagictransformation. MRI Brain w/o Contrast Result Date: March 12, 2022 Verified By: EZEQUIEL APONTE DO CLINICAL STATEMENT: IMPRESSION: Acute ischemic infarction of the left periventricular caudothalamic grooveregion. Severe chronic microvascular angiopathy. Volume loss. Communication was initiated by this physician via the radiology resultscommunication center in PACS at 7:12 pm on 03/12/2022 to be communicated to alicensed caregiver. The CT Angiography Neck w/ Contrast Result Date: March 10, 2022 Verified By: EZEQUIEL APONTE DO CLINICAL STATEMENT: IMPRESSION: Right A2 segment occlusion. Mild to moderate left post communicating P2 aspirate No acute arterial abnormality of the neck. Approximately 55% left and 20% right ICA stenosis. Findings were discussed with Dr. SHERIF ARGUELLO at 8:56 pm on 03/10/2022. CT Angiography Head w/ Contrast Result Date: March 10, 2022 Verified By: EZEQUIEL APONTE DO CLINICAL STATEMENT: IMPRESSION: Right A2 segment occlusion. Mild to moderate left post communicating P2 aspirate No acute arterial abnormality of the neck. Approximately 55% left and 20% right ICA stenosis. Findings were discussed with Dr. SHERIF ARGUELLO at 8:56 pm on 03/10/2022. CT Head or Brain w/o Contrast Result Date: March 10, 2022 Verified By: EZEQUIEL APONTE DO CLINICAL STATEMENT: IMPRESSION: No acute intracranial abnormality. Chronic microvascular angiopathy andvolume loss. XR Chest 1 View Result Date: March 10, 2022 Verified By: SEMAJ APONTE DO CLINICAL STATEMENT: IMPRESSION: No acute cardiopulmonary findings. EKG No qualifying data available. 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 Pt was found to be Hypertensive, right facial droop, dysarthria, decreased strength and sensation to RUE and RLE noted on exam. Pt was last known to be normal last night before bed. CT head/brain was neg, no intracranial bleed. However, pt is not a candidate for TPA. CT angiography head and neck showed right A2 segment occlusion. Mild to moderate left post communicating P2 aspirate, no acute arterial abnormality of the neck. Approximately 55% left and 20% right ICA stenosis. CT head/brain was neg, no intracranial bleed. CT angiography head and neck showed right A2 segment occlusion but is suspected to be a chronic finding, and does notexplain current unilateral weakness in right arm. -MRI showed acute ischemic infarction of the left periventricular caudothalamic groove region and severe chronic microvascular angiopathy. TTE showed mild diastolic function, EF 50 to 55%, no PFO, and no left atrial thrombus. Ischemic stroke most likely due to left-sided MCA distribution -Patient is shown clinical improvement on exam but apparently evening, patient was describing increased weakness of the right leg and new onset of right leg rigidity. Neuro was consulted, they are thinking this may be the clinical presentation of the full extent of the stroke, they recommended fluid bolus of 500 cc and MRI as well as consideration for metabolic aswell as infectious cause for worsening of weakness. They will reevaluate tomorrow. Appreciate theirrecommendation. -Stat CT head was done to rule out hemorrhagic conversion as MRI would take too long. Based off CT's head scan finding will determine appropriate therapy. -A1c 5.4, TSH 4.017, and LDL 195 -Continue patient on ASA 81 mg -As per neuro, atorvastatin is increased to 80 mg and to consult vascular for carotid stenosis and possibly starting to antiplatelet therapy. They also suggested [facility] for 30 days and follow-up with [facility] in 4 to 6 weeks. Appreciate the recommendations. Vascular was consulted, as per their recommendation we will not administer Plavix and no intervention needed at this time. They will follow outpatient. -PT/OT recommend acute rehab at this time, appreciate their recommendation History of HTN -Blood pressure is now 140-150 systolic and 60-80 -continue patient on 25 mg of losartan History of HLD -Total cholesterol 271, triglyceride 168 and LDL 195 -On 80 mg of atorvastatin Alcohol abuse -drinks 12 packs of beer daily, last drink 2 days prior to admission -6 days, since last alcoholic drink, will discontinue CIWA protocol -Folate and B12 have been administered Hypokalemia -resolved -Repeat potassium of 3.9 DVT prophylaxis -Patient given Lovenox FULL CODE Digitally Signed by MAIA REYES MD on 03/14/2022 08:05 PM [facility] [id number] Neurology Progress note Date of Service 03/15/2022 Chief Complaint stroke Subjective Per the staff and care team the patient feels like he is getting worse and weaker all over may be some worsening weakness on the right side. This was seen by my colleagues and felt to be completion and evolution of the stroke which was confirmed on the previous CT. Despite this the care team was concerned about ongoing decline requested neurological reevaluation. Patient says he feels weaker all over. A bit more tight and weak on the right leg Objective Vitals and Measurements T: 36.5 C (Oral) TMIN: 36.5 C (Oral) TMAX: 36.7 C (Oral) HR: 79 RR: 16 BP: 166/83 SpO2: 96% HT: 172.7 cm WT: 84.5 kg BMI: 28.33 Intake and Output 7AM Yesterday to 7AM Today Intake and Output (Last 24 hours) Intake Output Urine Voided 275.00 Stool Count 1.00 Urine Count 2.00 Emesis Count 0.00 Total Summary Total Intake 0.00 Total Output 275.00 Fluid Balance -275.00 Physical Exam Focused exam demonstrates focal weakness in the right arm and leg 4 - in the upper extremity 4 - and lower extremity mild increased tone in the right upper extremity and right lower extremity Dysarthric, right facial drooping noted Weight Dosing Weight: 84.5 kg (03/14/22) Dosing Weight: 84.5 kg (03/11/22) Medications Medications (5) Active Scheduled: (4) aspirin 81 mg Chewable 81 mg 1 tab(s), Oral, qDayM atorvastatin 80 mg tablet 80 mg 1 tab(s), Oral, qDay heparin 5,000 units/mL (1 mL) vial 5,000 unit(s) 1 mL, Subcutaneous, q8h losartan 25 mg tablet 25 mg 1 tab(s), Oral, qDay Continuous: (0) PRN: (1) melatonin 3 mg tablet 3 mg 1 tab(s), Oral, qHS Lab Results 03/14 06:56 WBC: 9.4 Hgb: 15.7 Hct: 45.4 Platelet: 272 Neutrophil %: 63.4 Glucose Level: 101 Sodium Level: 143 Potassium Level: 3.9 BUN: 17.0 Creatinine Lvl (s): 0.76 Imaging Results and Diagnostics CT Head or Brain w/o Contrast Result Date: March 14, 2022 Verified By: BJ DUARTE MD CLINICAL STATEMENT: IMPRESSION: No intracranial hemorrhage. No mass effect Multifocal infarcts and significant white matter disease are similar to theprior study CT Head or Brain w/o Contrast Result Date: March 13, 2022 Verified By: BARNEY APONTE MD CLINICAL STATEMENT: IMPRESSION: Expected evolution of left periventricular infarct without hemorrhagictransformation. MRI Brain w/o Contrast Result Date: March 12, 2022 Verified By: EZEQUIEL APONTE DO CLINICAL STATEMENT: IMPRESSION: Acute ischemic infarction of the left periventricular caudothalamic grooveregion. Severe chronic microvascular angiopathy. Volume loss. Communication was initiated by this physician via the radiology resultscommunication center in PACS at 7:12 pm on 03/12/2022 to be communicated to alicensed caregiver. The CT Angiography Neck w/ Contrast Result Date: March 10, 2022 Verified By: EZEQUIEL APONTE DO CLINICAL STATEMENT: IMPRESSION: Right A2 segment occlusion. Mild to moderate left post communicating P2 aspirate No acute arterial abnormality of the neck. Approximately 55% left and 20% right ICA stenosis. Findings were discussed with Dr. SHERIF ARGUELLO at 8:56 pm on 03/10/2022. CT Angiography Head w/ Contrast Result Date: March 10, 2022 Verified By: EZEQUIEL APONTE DO CLINICAL STATEMENT: IMPRESSION: Right A2 segment occlusion. Mild to moderate left post communicating P2 aspirate No acute arterial abnormality of the neck. Approximately 55% left and 20% right ICA stenosis. Findings were discussed with Dr. SHERIF ARGUELLO at 8:56 pm on 03/10/2022. CT Head or Brain w/o Contrast Result Date: March 10, 2022 Verified By: EZEQUIEL APONTE DO CLINICAL STATEMENT: IMPRESSION: No acute intracranial abnormality. Chronic microvascular angiopathy andvolume loss. XR Chest 1 View Result Date: March 10, 2022 Verified By: SEMAJ APONTE DO CLINICAL STATEMENT: IMPRESSION: No acute cardiopulmonary findings. EKG No qualifying data available. Assessment/Plan Left MCA stroke - I suspect this is evolution/completion of his stroke rather than a new event Dehydration vs decreased cerebral perfusion could also explain his perceived weakening- judicious hydration may be of benefit ultimately if he continues to worsen he will need an MRI brain- If he does well today, i think he can still be discharged to rehab- Given his worsening last evening, a repeat head CT was checked and showed further evolution of the stroke, without hemorrhage. TTE was limited but unrevealing. His left ICA stenosis is only 55%, however it is still a potential explanation of the stroke. vascular surgery evaluated his case. Aspirin has been started. Lipitor to 80mg given his high LDL. [facility] to screen for atrial fib added as well. Will sign off but please contact our service if further input is needed. He should follow-up with [facility] in the next 4-6 weeks. General guidelines for long-term vascular risk factor modification in the setting of a stroke: SBP goal: < 130 as tolerated Goal Total cholesterol: < 200, LDL: 50-70 HbA1c: < 6 Time Spent 30 minutes Digitally Signed by JUSTEN SEPULVEDA MD on 03/15/2022 08:05 AM [facility] [id number] Note Date of Service 03/14/2022 Subjective Patient was seen at bedside. No acute events overnight. Patient showed mild improvement dysarthria,facial droop and right shoulder strength. Reported arm weakness about the same, unable to open hand. However he had reported decrease in difficulty eating his food and decreased tremors. Patient is able nicholas denied any changes in vision, dizziness, chest pain, nausea, vomiting, palpitations and shortness of breath. At 5 PM, was called to patient's room to update the brother. When speaking to the brother, patient had mentioned that he has been feeling increased weakness in his legs, as well as trouble walking. This started after his appointment with occupational therapy and according to him at worsened. At this time, he denied any headaches, loss of sensation, and changes in vision. Patient was given a fluidbolus and stat CT scan. Objective Vitals and Measurements T: 36.5 C (Oral) TMIN: 36.5 C (Oral) TMAX: 36.8 C (Oral) HR: 83(Monitored) RR: 18 BP: 155/77 SpO2: 97% HT: 172.7 cm WT: 84.5 kg BMI: 28.33 Intake and Output 7AM Yesterday to 7AM Today Intake and Output (Last 24 hours) Intake Output Urine Voided 500.00 Stool Count 1.00 Urine Count 6.00 Emesis Count 0.00 Total Summary Total Intake 0.00 Total Output 500.00 Fluid Balance -500.00 Physical Exam 9am GEN: NAD. Well appearing. Alert. Interactive. Good hygiene. +dysarthria but improved. HEENT: NC/AT. PERRLA, EOMI. Normal external auditory canal and tympanic membrane. Nares patent, normal nasal mucosa. MMM, normal oropharynx. NECK: Supple. Normal ROM. Trachea midline. No LAD, no thyromegaly. RESPIRATORY: Normal respiratory effort. CTABL. No wheezing, rhonchi or rales. CVS: RRR. Normal S1/S2. No M/R/G. No JVD. No carotid bruits. ABDOMEN: Soft, non-tender, non-distended. +BS. No hepatosplenomegaly. EXTREMITIES: No cyanosis, clubbing or edema. Normal tone and ROM. Right-sided weakness of upper extremity 3/5 but improved. left arm strength 5/5. Capillary refill <2s. 2+ distal pulses B/L. Abnormal right-sided nose to finger test. Unable to do right knee to leon test. NEURO: AAOx3. Right facial droop but improved. cranial nerves II to XII intact. Sensation normal. Reflex symmetric. Gait normal. SKIN: Warm. Intact. No rashes, lesions or erythema. 5pm GEN: NAD. Well appearing. Alert. Interactive. Good hygiene. +dysarthria but improved. HEENT: NC/AT. PERRLA, EOMI. Normal external auditory canal and tympanic membrane. Nares patent, normal nasal mucosa. MMM, normal oropharynx. NECK: Supple. Normal ROM. Trachea midline. No LAD, no thyromegaly. RESPIRATORY: Normal respiratory effort. CTABL. No wheezing, rhonchi or rales. CVS: RRR. Normal S1/S2. No M/R/G. No JVD. No carotid bruits. ABDOMEN: Soft, non-tender, non-distended. +BS. No hepatosplenomegaly. EXTREMITIES: No cyanosis, clubbing or edema. Right-sided weakness of upper extremity 3/5. Unable toopen right hand. left arm strength 5/5. Right-sided lower extremity weakness 4-/5.increased tone ofright leg. Unable to flex or extend at the knee of the right leg. Left-sided weakness 5-/5capillaryrefill <2s. 2+ distal pulses B/L. Abnormal right-sided nose to finger test. NEURO: AAOx3. Right facial droop but improved. cranial nerves II to XII intact. Sensation normal. Reflex symmetric. Gait normal. SKIN: Warm. Intact. No rashes, lesions or erythema. Weight Dosing Weight: 84.5 kg (03/14/22) Dosing Weight: 84.5 kg (03/11/22) Medications Medications (5) Active Scheduled: (4) aspirin 81 mg Chewable 81 mg 1 tab(s), Oral, qDayM atorvastatin 80 mg tablet 80 mg 1 tab(s), Oral, qDay heparin 5,000 units/mL (1 mL) vial 5,000 unit(s) 1 mL, Subcutaneous, q8h losartan 25 mg tablet 25 mg 1 tab(s), Oral, qDay Continuous: (0) PRN: (1) melatonin 3 mg tablet 3 mg 1 tab(s), Oral, qHS Lab Results 03/14 06:56 WBC: 9.4 Hgb: 15.7 Hct: 45.4 Platelet: 272 Neutrophil %: 63.4 Glucose Level: 101 Sodium Level: 143 Potassium Level: 3.9 BUN: 17.0 Creatinine Lvl (s): 0.76 Imaging Results and Diagnostics CT Head or Brain w/o Contrast Result Date: March 14, 2022 Verified By: BJ DUARTE MD CLINICAL STATEMENT: IMPRESSION: No intracranial hemorrhage. No mass effect Multifocal infarcts and significant white matter disease are similar to theprior study CT Head or Brain w/o Contrast Result Date: March 13, 2022 Verified By: BARNEY APONTE MD CLINICAL STATEMENT: IMPRESSION: Expected evolution of left periventricular infarct without hemorrhagictransformation. MRI Brain w/o Contrast Result Date: March 12, 2022 Verified By: EZEQUIEL APONTE DO CLINICAL STATEMENT: IMPRESSION: Acute ischemic infarction of the left periventricular caudothalamic grooveregion. Severe chronic microvascular angiopathy. Volume loss. Communication was initiated by this physician via the radiology resultscommunication center in PACS at 7:12 pm on 03/12/2022 to be communicated to alicensed caregiver. The CT Angiography Neck w/ Contrast Result Date: March 10, 2022 Verified By: EZEQUIEL APONTE DO CLINICAL STATEMENT: IMPRESSION: Right A2 segment occlusion. Mild to moderate left post communicating P2 aspirate No acute arterial abnormality of the neck. Approximately 55% left and 20% right ICA stenosis. Findings were discussed with Dr. SHERIF ARGUELLO at 8:56 pm on 03/10/2022. CT Angiography Head w/ Contrast Result Date: March 10, 2022 Verified By: EZEQUIEL APONTE DO CLINICAL STATEMENT: IMPRESSION: Right A2 segment occlusion. Mild to moderate left post communicating P2 aspirate No acute arterial abnormality of the neck. Approximately 55% left and 20% right ICA stenosis. Findings were discussed with Dr. SHERIF ARGUELLO at 8:56 pm on 03/10/2022. CT Head or Brain w/o Contrast Result Date: March 10, 2022 Verified By: EZEQUIEL APONTE DO CLINICAL STATEMENT: IMPRESSION: No acute intracranial abnormality. Chronic microvascular angiopathy andvolume loss. XR Chest 1 View Result Date: March 10, 2022 Verified By: SEMAJ APONTE DO CLINICAL STATEMENT: IMPRESSION: No acute cardiopulmonary findings. EKG No qualifying data available. 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 Pt was found to be Hypertensive, right facial droop, dysarthria, decreased strength and sensation to RUE and RLE noted on exam. Pt was last known to be normal last night before bed. CT head/brain was neg, no intracranial bleed. However, pt is not a candidate for TPA. CT angiography head and neck showed right A2 segment occlusion. Mild to moderate left post communicating P2 aspirate, no acute arterial abnormality of the neck. Approximately 55% left and 20% right ICA stenosis. CT head/brain was neg, no intracranial bleed. CT angiography head and neck showed right A2 segment occlusion but is suspected to be a chronic finding, and does notexplain current unilateral weakness in right arm. -MRI showed acute ischemic infarction of the left periventricular caudothalamic groove region and severe chronic microvascular angiopathy. TTE showed mild diastolic function, EF 50 to 55%, no PFO, and no left atrial thrombus. Ischemic stroke most likely due to left-sided MCA distribution -Patient is shown clinical improvement on exam but apparently evening, patient was describing increased weakness of the right leg and new onset of right leg rigidity. Neuro was consulted, they are thinking this may be the clinical presentation of the full extent of the stroke, they recommended fluid bolus of 500 cc and MRI as well as consideration for metabolic aswell as infectious cause for worsening of weakness. They will reevaluate tomorrow. Appreciate theirrecommendation. -Stat CT head was done to rule out hemorrhagic conversion as MRI would take too long. Based off CT's head scan finding will determine appropriate therapy. -A1c 5.4, TSH 4.017, and LDL 195 -Continue patient on ASA 81 mg -As per neuro, atorvastatin is increased to 80 mg and to consult vascular for carotid stenosis and possibly starting to antiplatelet therapy. They also suggested [facility] for 30 days and follow-up with [facility] in 4 to 6 weeks. Appreciate the recommendations. Vascular was consulted, as per their recommendation we will not administer Plavix and no intervention needed at this time. They will follow outpatient. -PT/OT recommend acute rehab at this time, appreciate their recommendation History of HTN -Blood pressure is now 140-150 systolic and 60-80 -continue patient on 25 mg of losartan History of HLD -Total cholesterol 271, triglyceride 168 and LDL 195 -On 80 mg of atorvastatin Alcohol abuse -drinks 12 packs of beer daily, last drink 2 days prior to admission -6 days, since last alcoholic drink, will discontinue CIWA protocol -Folate and B12 have been administered Hypokalemia -resolved -Repeat potassium of 3.9 DVT prophylaxis -Patient given Lovenox FULL CODE Digitally Signed by MAIA REYES MD on 03/14/2022 08:05 PM [id number] Note ORIGINAL EXAMINATION: CT OF THE HEAD WITHOUT CONTRAST 03/14/2022 6:25 pm TECHNIQUE: CT of the head was performed without the administration of intravenous contrast. Automated exposure control, iterative reconstruction, and/or weight based adjustment of the mA/kV was utilized to reduce the radiation dose to as low as reasonably achievable. COMPARISON: 03/13/2022 HISTORY: ORDERING SYSTEM PROVIDED HISTORY: Reason for Exam: WORSENING RT SIDE WEAKNESS S/P CVA Worsening weakness on the right leg FINDINGS: There is no acute intracranial hemorrhage, mass, mass effect or abnormal extra-axial fluid collection. There is no CT evidence of acute infarct. The density in the larger dural venous sinuses is grossly normal. Patchy parenchymal hypodensities in the cerebral white matter are nonspecific but statistically most consistent with moderate chronic microvascular angiopathy. Atherosclerotic calcifications are present in the cavernous carotid arteries bilaterally. There is proportionate enlargement of the ventricular system and cortical sulci compatible with parenchymal volume loss. Chronic area of infarction in the right frontal lobe is similar to the prior study. Left basal ganglia infarct is similar to the prior study. The skull base and calvarium demonstrate no abnormality. The paranasal sinuses are clear. Included mastoid air cells are clear. IMPRESSION: No intracranial hemorrhage. No mass effect Multifocal infarcts and significant white matter disease are similar to the prior study Interpreted by: Bj Duarte MD Preliminary Report By: Bj Duarte MD Electronically signed By Bj Duarte MD Dictated Date: 03/14/2022 6:59:27 PM Prelim Date: 03/14/2022 7:01:39 PM Sign Date: 03/14/2022 7:01:39 PM Ordering Provider: MAIA REYES [id number] Note ORIGINAL EXAMINATION: CT OF THE HEAD WITHOUT CONTRAST 03/14/2022 6:25 pm TECHNIQUE: CT of the head was performed without the administration of intravenous contrast. Automated exposure control, iterative reconstruction, and/or weight based adjustment of the mA/kV was utilized to reduce the radiation dose to as low as reasonably achievable. COMPARISON: 03/13/2022 HISTORY: ORDERING SYSTEM PROVIDED HISTORY: Reason for Exam: WORSENING RT SIDE WEAKNESS S/P CVA Worsening weakness on the right leg FINDINGS: There is no acute intracranial hemorrhage, mass, mass effect or abnormal extra-axial fluid collection. There is no CT evidence of acute infarct. The density in the larger dural venous sinuses is grossly normal. Patchy parenchymal hypodensities in the cerebral white matter are nonspecific but statistically most consistent with moderate chronic microvascular angiopathy. Atherosclerotic calcifications are present in the cavernous carotid arteries bilaterally. There is proportionate enlargement of the ventricular system and cortical sulci compatible with parenchymal volume loss. Chronic area of infarction in the right frontal lobe is similar to the prior study. Left basal ganglia infarct is similar to the prior study. The skull base and calvarium demonstrate no abnormality. The paranasal sinuses are clear. Included mastoid air cells are clear. IMPRESSION: No intracranial hemorrhage. No mass effect Multifocal infarcts and significant white matter disease are similar to the prior study Interpreted by: Bj Duarte MD Preliminary Report By: Bj Duarte MD Electronically signed By Bj Duarte MD Dictated Date: 03/14/2022 6:59:27 PM Prelim Date: 03/14/2022 7:01:39 PM Sign Date: 03/14/2022 7:01:39 PM Ordering Provider: [facility]07-23-2022 Note Date of Service 03/13/2020 Subjective Patient was seen at bedside. No acute events overnight. Patient was complaining of worsening right arm weakness, dysarthria and facial droop. Patient said it started this earlier this morning. Havingtrouble eating his food because of increased shakiness of his arm. He denies any new onset of focalneurological deficit, headache, changes in vision, chest pain, palpitations or urinary continence. Objective Vitals and Measurements T: 36.5 C (Oral) TMIN: 36.5 C (Oral) TMAX: 36.8 C (Oral) HR: 82(Monitored) RR: 18 BP: 144/68 SpO2: 95% Intake and Output 7AM Yesterday to 7AM Today Intake and Output (Last 24 hours) Intake Output Urine Voided 500.00 Stool Count 1.00 Emesis Count 0.00 Total Summary Total Intake 0.00 Total Output 500.00 Fluid Balance -500.00 Physical Exam GEN: NAD. Well appearing. Alert. Interactive. Good hygiene. +dysarthria worsening HEENT: NC/AT. PERRLA, EOMI. Normal external auditory canal and tympanic membrane. Nares patent, normal nasal mucosa. MMM, normal oropharynx. NECK: Supple. Normal ROM. Trachea midline. No LAD, no thyromegaly. RESPIRATORY: Normal respiratory effort. CTABL. No wheezing, rhonchi or rales. CVS: RRR. Normal S1/S2. No M/R/G. No JVD. No carotid bruits. ABDOMEN: Soft, non-tender, non-distended. +BS. No hepatosplenomegaly. EXTREMITIES: No cyanosis, clubbing or edema. Normal tone and ROM. Worsening right-sided weakness ofupper extremity 3/5 but improved. left arm strength 5/5. Capillary refill <2s. 2+ distal pulses B/L. Abnormal right-sided nose to finger test. Increased tremor of extremities. NEURO: AAOx3. Right facial droop but improved. cranial nerves II to XII intact. Sensation normal. Reflex symmetric. Gait normal. SKIN: Warm. Intact. No rashes, lesions or erythema. Weight Dosing Weight: 84.5 kg (03/11/22) Dosing Weight: 84.5 kg (03/11/22) Medications Medications (7) Active Scheduled: (5) aspirin 81 mg Chewable 81 mg 1 tab(s), Oral, qDayM atorvastatin 80 mg tablet 80 mg 1 tab(s), Oral, qDay heparin 5,000 units/mL (1 mL) vial 5,000 unit(s) 1 mL, Subcutaneous, q8h losartan 25 mg tablet 25 mg 1 tab(s), Oral, qDay multivitamin tablet 1 tab(s), Oral, qDayM Continuous: (0) PRN: (2) LORAZEPam 2 mg/mL 1 mL vial 0.5 mg 0.25 mL, IV Push, q30min melatonin 3 mg tablet 3 mg 1 tab(s), Oral, qHS Lab Results 03/13 07:27 WBC: 9.2 Hgb: 17.0 Hct: 49.1 Platelet: 271 Neutrophil %: 57.4 Glucose Level: 106 Sodium Level: 146 H Potassium Level: 4.3 BUN: 17.0 Creatinine Lvl (s): 0.82 03/12 06:46 WBC: 8.3 Hgb: 16.5 Hct: 47.4 Platelet: 330 Neutrophil %: 51.3 Glucose Level: 99 Sodium Level: 141 Potassium Level: 3.9 BUN: 15.0 Creatinine Lvl (s): 0.76 Imaging Results and Diagnostics CT Head or Brain w/o Contrast Result Date: March 13, 2022 Verified By: BARNEY APONTE MD CLINICAL STATEMENT: IMPRESSION: Expected evolution of left periventricular infarct without hemorrhagictransformation. MRI Brain w/o Contrast Result Date: March 12, 2022 Verified By: EZEQUIEL APONTE DO CLINICAL STATEMENT: IMPRESSION: Acute ischemic infarction of the left periventricular caudothalamic grooveregion. Severe chronic microvascular angiopathy. Volume loss. Communication was initiated by this physician via the radiology resultscommunication center in PACS at 7:12 pm on 03/12/2022 to be communicated to alicensed caregiver. The CT Angiography Neck w/ Contrast Result Date: March 10, 2022 Verified By: EZEQUIEL APONTE DO CLINICAL STATEMENT: IMPRESSION: Right A2 segment occlusion. Mild to moderate left post communicating P2 aspirate No acute arterial abnormality of the neck. Approximately 55% left and 20% right ICA stenosis. Findings were discussed with Dr. SHERIF ARGUELLO at 8:56 pm on 03/10/2022. CT Angiography Head w/ Contrast Result Date: March 10, 2022 Verified By: EZEQUIEL APONTE DO CLINICAL STATEMENT: IMPRESSION: Right A2 segment occlusion. Mild to moderate left post communicating P2 aspirate No acute arterial abnormality of the neck. Approximately 55% left and 20% right ICA stenosis. Findings were discussed with Dr. SHERIF ARGUELLO at 8:56 pm on 03/10/2022. CT Head or Brain w/o Contrast Result Date: March 10, 2022 Verified By: EZEQUIEL APONTE DO CLINICAL STATEMENT: IMPRESSION: No acute intracranial abnormality. Chronic microvascular angiopathy andvolume loss. XR Chest 1 View Result Date: March 10, 2022 Verified By: SEMAJ APONTE DO CLINICAL STATEMENT: IMPRESSION: No acute cardiopulmonary findings. EKG No qualifying data available. Assessment/Plan Ischemic stroke most likely left-sided MCA distribution History of HTN History of HLD Alcohol abuse DVT prophylaxis Full code Pt is a 71 year old male with a PMHx of HTN and HLD who presents to the ED for evaluation of right sided upper and lower extremity weakness and dysarthria. Pt was found to be Hypertensive, right facial droop, dysarthria, decreased strength and sensation to RUE and RLE noted on exam. Pt was last known to be normal last night before bed. CT head/brain was neg, no intracranial bleed. However, pt is not a candidate for TPA. CT angiography head and neck showed right A2 segment occlusion. Mild to moderate left post communicating P2 aspirate, no acute arterial abnormality of the neck. Approximately 55% left and 20% right ICA stenosis. Ischemic stroke most likely due to left-sided MCA distribution -Patient has mild improvement of right-sided facial droop, dysarthria and right arm weakness -Patient did report increased difficulty with swallowing, will evaluate with bedside swallow to determine risk for aspiration -Patient is out of tPA window since onset of symptoms was Wednesday AM -NIH of 4 -CT head/brain was neg, no intracranial bleed. -CT angiography head and neck showed right A2 segment occlusion but is suspected to be a chronic finding, and does not explain current unilateral weakness in right arm. -MRI showed acute ischemic infarction of the left periventricular caudothalamic groove region and severe chronic microvascular angiopathy -TTE showed mild diastolic function, EF 50 to 55%, no PFO, and no left atrial thrombus -A1c 5.4, TSH 4.017, and LDL 195 -Continue patient on ASA 81 mg -Neurological findings have worsened today in comparison to yesterday.there is possible concern forhemorrhagic conversion so a stat CT was ordered stat CT was ordered showing evolution of left periventricular infarct without hemorrhagic transformation. -As per neuro, atorvastatin is increased to 80 mg and to consult vascular for carotid stenosis and possibly starting to antiplatelet therapy. They also suggested [facility] for 30 days and follow-up with [facility] in 4 to 6 weeks. Appreciate the recommendations. -PT/OT recommend acute rehab at this time, appreciate their recommendation History of HTN -Blood pressure is now 140-150 systolic and 60-80 -We will continue patient on 25 mg of losartan History of HLD -Total cholesterol 271, triglyceride 168 and LDL 195 -On 80 mg of atorvastatin Alcohol abuse -drinks 12 packs of beer daily, last drink 2 days prior to admission -Placed on CIWA protocol -Folate and B12 have been administered Hypokalemia -Potassium of 3.6 -Potassium was repleted DVT prophylaxis -Patient given Lovenox FULL CODE Digitally Signed by MAIA REYES MD on 03/13/2022 04:54 PM [id number] Note Date of Service 03/13/2020 Subjective Patient was seen at bedside. No acute events overnight. Patient was complaining of worsening right arm weakness, dysarthria and facial droop. Patient said it started this earlier this morning. Havingtrouble eating his food because of increased shakiness of his arm. He denies any new onset of focalneurological deficit, headache, changes in vision, chest pain, palpitations or urinary continence. Objective Vitals and Measurements T: 36.5 C (Oral) TMIN: 36.5 C (Oral) TMAX: 36.8 C (Oral) HR: 82(Monitored) RR: 18 BP: 144/68 SpO2: 95% Intake and Output 7AM Yesterday to 7AM Today Intake and Output (Last 24 hours) Intake Output Urine Voided 500.00 Stool Count 1.00 Emesis Count 0.00 Total Summary Total Intake 0.00 Total Output 500.00 Fluid Balance -500.00 Physical Exam GEN: NAD. Well appearing. Alert. Interactive. Good hygiene. +dysarthria worsening HEENT: NC/AT. PERRLA, EOMI. Normal external auditory canal and tympanic membrane. Nares patent, normal nasal mucosa. MMM, normal oropharynx. NECK: Supple. Normal ROM. Trachea midline. No LAD, no thyromegaly. RESPIRATORY: Normal respiratory effort. CTABL. No wheezing, rhonchi or rales. CVS: RRR. Normal S1/S2. No M/R/G. No JVD. No carotid bruits. ABDOMEN: Soft, non-tender, non-distended. +BS. No hepatosplenomegaly. EXTREMITIES: No cyanosis, clubbing or edema. Normal tone and ROM. Worsening right-sided weakness ofupper extremity 3/5 but improved. left arm strength 5/5. Capillary refill <2s. 2+ distal pulses B/L. Abnormal right-sided nose to finger test. Increased tremor of extremities. NEURO: AAOx3. Right facial droop but improved. cranial nerves II to XII intact. Sensation normal. Reflex symmetric. Gait normal. SKIN: Warm. Intact. No rashes, lesions or erythema. Weight Dosing Weight: 84.5 kg (03/11/22) Dosing Weight: 84.5 kg (03/11/22) Medications Medications (7) Active Scheduled: (5) aspirin 81 mg Chewable 81 mg 1 tab(s), Oral, qDayM atorvastatin 80 mg tablet 80 mg 1 tab(s), Oral, qDay heparin 5,000 units/mL (1 mL) vial 5,000 unit(s) 1 mL, Subcutaneous, q8h losartan 25 mg tablet 25 mg 1 tab(s), Oral, qDay multivitamin tablet 1 tab(s), Oral, qDayM Continuous: (0) PRN: (2) LORAZEPam 2 mg/mL 1 mL vial 0.5 mg 0.25 mL, IV Push, q30min melatonin 3 mg tablet 3 mg 1 tab(s), Oral, qHS Lab Results 03/13 07:27 WBC: 9.2 Hgb: 17.0 Hct: 49.1 Platelet: 271 Neutrophil %: 57.4 Glucose Level: 106 Sodium Level: 146 H Potassium Level: 4.3 BUN: 17.0 Creatinine Lvl (s): 0.82 03/12 06:46 WBC: 8.3 Hgb: 16.5 Hct: 47.4 Platelet: 330 Neutrophil %: 51.3 Glucose Level: 99 Sodium Level: 141 Potassium Level: 3.9 BUN: 15.0 Creatinine Lvl (s): 0.76 Imaging Results and Diagnostics CT Head or Brain w/o Contrast Result Date: March 13, 2022 Verified By: BARNEY APONTE MD CLINICAL STATEMENT: IMPRESSION: Expected evolution of left periventricular infarct without hemorrhagictransformation. MRI Brain w/o Contrast Result Date: March 12, 2022 Verified By: EZEQUIEL APONTE DO CLINICAL STATEMENT: IMPRESSION: Acute ischemic infarction of the left periventricular caudothalamic grooveregion. Severe chronic microvascular angiopathy. Volume loss. Communication was initiated by this physician via the radiology resultscommunication center in PACS at 7:12 pm on 03/12/2022 to be communicated to alicensed caregiver. The CT Angiography Neck w/ Contrast Result Date: March 10, 2022 Verified By: EZEQUIEL APONTE DO CLINICAL STATEMENT: IMPRESSION: Right A2 segment occlusion. Mild to moderate left post communicating P2 aspirate No acute arterial abnormality of the neck. Approximately 55% left and 20% right ICA stenosis. Findings were discussed with Dr. SHERIF ARGUELLO at 8:56 pm on 03/10/2022. CT Angiography Head w/ Contrast Result Date: March 10, 2022 Verified By: EZEQUIEL APONTE DO CLINICAL STATEMENT: IMPRESSION: Right A2 segment occlusion. Mild to moderate left post communicating P2 aspirate No acute arterial abnormality of the neck. Approximately 55% left and 20% right ICA stenosis. Findings were discussed with Dr. SHERIF ARGUELLO at 8:56 pm on 03/10/2022. CT Head or Brain w/o Contrast Result Date: March 10, 2022 Verified By: EZEQUIEL APONTE DO CLINICAL STATEMENT: IMPRESSION: No acute intracranial abnormality. Chronic microvascular angiopathy andvolume loss. XR Chest 1 View Result Date: March 10, 2022 Verified By: SEMAJ APONTE DO CLINICAL STATEMENT: IMPRESSION: No acute cardiopulmonary findings. EKG No qualifying data available. Assessment/Plan Ischemic stroke most likely left-sided MCA distribution History of HTN History of HLD Alcohol abuse DVT prophylaxis Full code Pt is a 71 year old male with a PMHx of HTN and HLD who presents to the ED for evaluation of right sided upper and lower extremity weakness and dysarthria. Pt was found to be Hypertensive, right facial droop, dysarthria, decreased strength and sensation to RUE and RLE noted on exam. Pt was last known to be normal last night before bed. CT head/brain was neg, no intracranial bleed. However, pt is not a candidate for TPA. CT angiography head and neck showed right A2 segment occlusion. Mild to moderate left post communicating P2 aspirate, no acute arterial abnormality of the neck. Approximately 55% left and 20% right ICA stenosis. Ischemic stroke most likely due to left-sided MCA distribution -Patient has mild improvement of right-sided facial droop, dysarthria and right arm weakness -Patient did report increased difficulty with swallowing, will evaluate with bedside swallow to determine risk for aspiration -Patient is out of tPA window since onset of symptoms was Wednesday 9 AM -NIH of 4 -CT head/brain was neg, no intracranial bleed. -CT angiography head and neck showed right A2 segment occlusion but is suspected to be a chronic finding, and does not explain current unilateral weakness in right arm. -MRI showed acute ischemic infarction of the left periventricular caudothalamic groove region and severe chronic microvascular angiopathy -TTE showed mild diastolic function, EF 50 to 55%, no PFO, and no left atrial thrombus -A1c 5.4, TSH 4.017, and LDL 195 -Continue patient on ASA 81 mg -Neurological findings have worsened today in comparison to yesterday.there is possible concern forhemorrhagic conversion so a stat CT was ordered stat CT was ordered showing evolution of left periventricular infarct without hemorrhagic transformation. -As per neuro, atorvastatin is increased to 80 mg and to consult vascular for carotid stenosis and possibly starting to antiplatelet therapy. They also suggested [facility] for 30 days and follow-up with [facility] in 4 to 6 weeks. Appreciate the recommendations. -PT/OT recommend acute rehab at this time, appreciate their recommendation History of HTN -Blood pressure is now 140-150 systolic and 60-80 -We will continue patient on 25 mg of losartan History of HLD -Total cholesterol 271, triglyceride 168 and LDL 195 -On 80 mg of atorvastatin Alcohol abuse -drinks 12 packs of beer daily, last drink 2 days prior to admission -Placed on CIWA protocol -Folate and B12 have been administered Hypokalemia -Potassium of 3.6 -Potassium was repleted DVT prophylaxis -Patient given Lovenox FULL CODE Digitally Signed by MAIA REYES MD on 03/13/2022 04:54 PM [id number] Vascular surgery Consult note Date of Service 03/13/2022 Reason for Consultation Carotid occlusive disease CVA History of Present Illness 71-year-old white male with numerous comorbidities hyperlipidemia hypertension noncompliance with antiplatelet or statin presented with acute onset of right side hemiplegia as well as speech difficulties. Work-up significant for left cerebral CVA 55% left carotid stenosis on work-up patient was placed on an aspirin as well as a high-dose statin Review of Systems Frustrated by his right arm weakness Physical Exam Vitals and Measurements T: 36.5 C (Oral) TMIN: 36.5 C (Oral) TMAX: 36.8 C (Oral) HR: 82(Monitored) RR: 18 BP: 144/68 SpO2: 95% Weight Dosing Weight: 84.5 kg (03/11/22) Dosing Weight: 84.5 kg (03/11/22) [facility] male [facility] no acute distress He appears to be alert and oriented. Some speech difficulties or communication but does quite oriented. Neck is supple is no karina bruits Heart regular rate and rhythm Femoral pulses are intact bilaterally Abdomen soft He has clear weakness of his right upper extremity he has some shoulder strength and movement proximally. But minimal hand movement or rib wrist flexion Right lower extremity has some slight deficiencies but is able to left against gravity and dorsiflexion plantarflexion Lab Results 03/13 07:27 WBC: 9.2 Hgb: 17.0 Hct: 49.1 Platelet: 271 Neutrophil %: 57.4 Glucose Level: 106 Sodium Level: 146 H Potassium Level: 4.3 BUN: 17.0 Creatinine Lvl (s): 0.82 03/12 06:46 WBC: 8.3 Hgb: 16.5 Hct: 47.4 Platelet: 330 Neutrophil %: 51.3 Glucose Level: 99 Sodium Level: 141 Potassium Level: 3.9 BUN: 15.0 Creatinine Lvl (s): 0.76 Imaging Results and Diagnostics CTA of the neck reviewed Assessment/Plan Potential stroke 71-year-old white male with multiple comorbidities I agree with aspirin therapy certainly could consider dual antiplatelet therapy but since the patient was on nothing I am not stringent on this. High-dose statins obviously required in addition agree with neurology's consultation will need follow-up with long-term outpatient basis for his carotid disease but no intervention would be appropriate at this time anticipate rehab. We will happy to follow the patient as well counseled the patient finds recommendations as best we could there is to be agreeable to above-noted recommendations Problem List/Past Medical History Ongoing Alcoholism /alcohol abuse High blood pressure Hyperlipidemia Kidney stone Pain Historical No qualifying data Procedure/Surgical History Lithotripsy Medications Inpatient ASA, 81 mg= 1 tab(s), Oral, qDayM Ativan, 0.5 mg= 0.25 mL, IV Push, q30min, PRN atorvastatin, 80 mg= 1 tab(s), Oral, qDay heparin 5000 units/mL injection, 5000 unit(s)= 1 mL, Subcutaneous, q8h losartan, 25 mg= 1 tab(s), Oral, qDay melatonin, 3 mg= 1 tab(s), Oral, qHS, PRN Multivitamin, 1 tab(s), Oral, qDayM Home No active home medications Allergies NKA Social History Smoking Status - 08/07/2014 Never smoker Alcohol Use: Past., 03/01/2022 Substance Abuse Use: Never., 03/01/2022 Tobacco Nicotine Use: Never (less than 100 in lifetime)., 03/01/2022 Family History Asthma: Negative: Mother, Father, Sister, Brother, Daughter and Son. Cancer: Negative: Mother, Father, Sister, Brother, Daughter and Son. Diabetes mellitus: Negative: Mother, Father, Sister, Brother, Daughter and Son. HIV: Negative: Mother, Father, Sister, Brother and Son. HTN - Hypertension: Negative: Mother, Father, Sister, Brother, Daughter and Son. Heart disease: Negative: Mother, Father, Sister, Brother, Daughter and Son. Hepatitis: Negative: Mother, Father, Sister, Brother, Daughter and Son. Hyperchloremia: Negative: Mother, Father, Sister, Brother, Daughter and Son. Mental illness: Negative: Mother, Father, Sister, Brother, Daughter and Son. Seizure: Negative: Mother, Father, Sister, Brother, Daughter and Son. Stroke: Negative: Mother, Father, Sister, Brother, Daughter and Son. TB - Tuberculosis: Negative: Mother, Father, Sister, Brother, Daughter and Son. Immunizations No qualifying data available. Digitally Signed by KATHY OLSON MD on 03/13/2022 04:29 PM [facility] [id number] Neurology Progress note Date of Service March 13, 2022 Chief Complaint Right-sided weakness Subjective His right-sided weakness is worse compared to yesterday. Arm seems heavier and his face is more asymmetric. No headache or visual changes. Objective Vitals and Measurements T: 36.5 C (Oral) TMIN: 36.5 C (Oral) TMAX: 36.8 C (Oral) HR: 87(Monitored) RR: 18 BP: 143/67 SpO2:95% Intake and Output 7AM Yesterday to 7AM Today Intake and Output (Last 24 hours) Intake Oral Intake 480.00 Output Urine Voided 500.00 Stool Count 1.00 Emesis Count 0.00 Total Summary Total Intake 480.00 Total Output 500.00 Fluid Balance -20.00 Physical Exam General: no acute distress Respiratory: breathing non-labored Cardiovascular: regular rate and rhythm Neurologic Exam Mental Status: Orientation: oriented to situation appropriately Language: normal fluency, normal comprehension Speech: dysarthric Cranial Nerves: Pupils: equal Visual Zamarripa: full to confrontation bilaterally CN III, IV, : EOMI. No nystagmus CN VII: R facial weakness, moderate CN VIII: intact grossly Sensation: Light touch: intact in all 4 extremities Motor: Involuntary movements: none Strength: RUE about 4-/5 proximally and distally Weight Dosing Weight: 84.5 kg (03/11/22) Dosing Weight: 84.5 kg (03/11/22) Medications Medications (7) Active Scheduled: (5) aspirin 81 mg Chewable 81 mg 1 tab(s), Oral, qDayM atorvastatin 80 mg tablet 80 mg 1 tab(s), Oral, qDay heparin 5,000 units/mL (1 mL) vial 5,000 unit(s) 1 mL, Subcutaneous, q8h losartan 25 mg tablet 25 mg 1 tab(s), Oral, qDay multivitamin tablet 1 tab(s), Oral, qDayM Continuous: (0) PRN: (2) LORAZEPam 2 mg/mL 1 mL vial 0.5 mg 0.25 mL, IV Push, q30min melatonin 3 mg tablet 3 mg 1 tab(s), Oral, qHS Lab Results 03/13 07:27 WBC: 9.2 Hgb: 17.0 Hct: 49.1 Platelet: 271 Neutrophil %: 57.4 Glucose Level: 106 Sodium Level: 146 H Potassium Level: 4.3 BUN: 17.0 Creatinine Lvl (s): 0.82 03/12 06:46 WBC: 8.3 Hgb: 16.5 Hct: 47.4 Platelet: 330 Neutrophil %: 51.3 Glucose Level: 99 Sodium Level: 141 Potassium Level: 3.9 BUN: 15.0 Creatinine Lvl (s): 0.76 Diabetes Labs Creatinine Lvl (s): 0.82 mg/dL (03/13/22) Glucose Level: 106 mg/dL (03/13/22) Cholesterol: 271 mg/dL High (03/12/22) Triglycerides: 168 mg/dL High (03/12/22) HDL Cholesterol: 42 mg/dL (03/12/22) LDL Cholesterol: 195 mg/dL High (03/12/22) Imaging Results and Diagnostics CT Head or Brain w/o Contrast Result Date: March 13, 2022 Verified By: BARNEY APONTE MD CLINICAL STATEMENT: IMPRESSION: Expected evolution of left periventricular infarct without hemorrhagictransformation. MRI Brain w/o Contrast Result Date: March 12, 2022 Verified By: EZEQUIEL APONTE DO CLINICAL STATEMENT: IMPRESSION: Acute ischemic infarction of the left periventricular caudothalamic grooveregion. Severe chronic microvascular angiopathy. Volume loss. Communication was initiated by this physician via the radiology resultscommunication center in PACS at 7:12 pm on 03/12/2022 to be communicated to alicensed caregiver. The CT Angiography Neck w/ Contrast Result Date: March 10, 2022 Verified By: EZEQUIEL APONTE DO CLINICAL STATEMENT: IMPRESSION: Right A2 segment occlusion. Mild to moderate left post communicating P2 aspirate No acute arterial abnormality of the neck. Approximately 55% left and 20% right ICA stenosis. Findings were discussed with Dr. SHERIF ARGUELLO at 8:56 pm on 03/10/2022. CT Angiography Head w/ Contrast Result Date: March 10, 2022 Verified By: EZEQUIEL APONTE DO CLINICAL STATEMENT: IMPRESSION: Right A2 segment occlusion. Mild to moderate left post communicating P2 aspirate No acute arterial abnormality of the neck. Approximately 55% left and 20% right ICA stenosis. Findings were discussed with Dr. SHERIF ARGUELLO at 8:56 pm on 03/10/2022. CT Head or Brain w/o Contrast Result Date: March 10, 2022 Verified By: EZEQUIEL APONTE DO CLINICAL STATEMENT: IMPRESSION: No acute intracranial abnormality. Chronic microvascular angiopathy andvolume loss. XR Chest 1 View Result Date: March 10, 2022 Verified By: SEMAJ APONTE DO CLINICAL STATEMENT: IMPRESSION: No acute cardiopulmonary findings. TTE: no source of stroke was seen, somewhat limited Assessment/Plan Stroke L ICA stenosis (55%) Given his worsening today a repeat head CT was checked and showed further evolution of the stroke, without hemorrhage. TTE was limited but unrevealing. His left ICA stenosis is only 55%, however it is still a potential explanation of the stroke. Wouldsuggest having vascular surgery evaluate his case. Aspirin has been started. Will increase Lipitor to 80mg given his high LDL. If vascular feels dual anti-platelet therapy is warranted, this is reasonable from my standpoint. His A1c is pending. I added a Cardionet to screen for atrial fib. as well. Will tentatively sign off but please contact our service if further input is needed. He should follow-up with [facility] in the next 4-6 weeks. General guidelines for long-term vascular risk factor modification in the setting of a stroke: SBP goal: < 130 as tolerated Goal Total cholesterol: < 200, LDL: 50-70 HbA1c: < 6 Time Spent 30 minutes, of which >50% was spent counseling the patient and/or coordinating care. D/w the primary team and his RN. Digitally Signed by JOSAFAT PRASAD MD on 03/13/2022 12:15 PM [id number] Note ORIGINAL EXAMINATION: CT OF THE HEAD WITHOUT CONTRAST 03/13/2022 10:10 am TECHNIQUE: CT of the head was performed without the administration of intravenous contrast. Automated exposure control, iterative reconstruction, and/or weight based adjustment of the mA/kV was utilized to reduce the radiation dose to as low as reasonably achievable. COMPARISON: MRI brain 03/12/2022, head CT 03/10/2022 HISTORY: ORDERING SYSTEM PROVIDED HISTORY: Reason for Exam: PT HAS SLURRED SPEECH AND INCREASED RT SIDE WEAKNESS TODAY, STROKE DX YESTERDAY worsening r weakness FINDINGS: No acute intracranial hemorrhage, hydrocephalus, or mass effect. There is increasing hypodensity in the left periventricular white matter at site of known acute infarct. 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 Atherosclerotic calcifications are shown in the cavernous carotid arteries bilaterally. Remote left parietal infarct is redemonstrated. Mucous retention cyst or polyp is shown in the right maxillary sinus. The mastoid air cells are clear. Soft tissue density in the bilateral external auditory canals likely reflects cerumen but would be amenable to direct visualization. No acute calvarial abnormality. IMPRESSION: Expected evolution of left periventricular infarct without hemorrhagic transformation. Interpreted by: Barney Aponte MD Preliminary Report By: Barney Aponte MD Electronically signed By Barney Aponte MD Dictated Date: 03/13/2022 10:14:00 AM Prelim Date: 03/13/2022 10:19:45 AM Sign Date: 03/13/2022 10:19:45 AM Ordering Provider: GERA SYED [facility] [id number] Note ORIGINAL EXAMINATION: CT OF THE HEAD WITHOUT CONTRAST 03/13/2022 10:10 am TECHNIQUE: CT of the head was performed without the administration of intravenous contrast. Automated exposure control, iterative reconstruction, and/or weight based adjustment of the mA/kV was utilized to reduce the radiation dose to as low as reasonably achievable. COMPARISON: MRI brain 03/12/2022, head CT 03/10/2022 HISTORY: ORDERING SYSTEM PROVIDED HISTORY: Reason for Exam: PT HAS SLURRED SPEECH AND INCREASED RT SIDE WEAKNESS TODAY, STROKE DX YESTERDAY worsening r weakness FINDINGS: No acute intracranial hemorrhage, hydrocephalus, or mass effect. There is increasing hypodensity in the left periventricular white matter at site of known acute infarct. 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 Atherosclerotic calcifications are shown in the cavernous carotid arteries bilaterally. Remote left parietal infarct is redemonstrated. Mucous retention cyst or polyp is shown in the right maxillary sinus. The mastoid air cells are clear. Soft tissue density in the bilateral external auditory canals likely reflects cerumen but would be amenable to direct visualization. No acute calvarial abnormality. IMPRESSION: Expected evolution of left periventricular infarct without hemorrhagic transformation. Interpreted by: Barney Aponte MD Preliminary Report By: Barney Aponte MD Electronically signed By Barney Aponte MD Dictated Date: 03/13/2022 10:14:00 AM Prelim Date: 03/13/2022 10:19:45 AM Sign Date: 03/13/2022 10:19:45 AM Ordering Provider: GERA AGARWAL [facility]07-22-2022 Note Date of Service 03/12/2022 Chief Complaint Right arm weakness, right facial droop, and dysarthria Subjective Patient was seen at bedside. No acute events overnight. Patient reported mild improvement of right arm weakness and improvement with speech. He did report difficulty with swallowing of food. He denied any headaches, lightheadedness, dizziness, chest pain, shortness of breath, diaphoresis, palpitation and nausea or vomiting. Objective Vitals and Measurements T: 36.4 C (Oral) TMIN: 36.4 C (Oral) TMAX: 36.9 C (Oral) HR: 94(Monitored) RR: 18 BP: 139/81 SpO2: 98% Intake and Output 7AM Yesterday to 7AM Today Intake and Output (Last 24 hours) Intake Oral Intake 480.00 Output Stool Count 0.00 Emesis Count 0.00 Total Summary Total Intake 480.00 Total Output 0.00 Fluid Balance 480.00 Physical Exam GEN: NAD. Well appearing. Alert. Interactive. Good hygiene. +dysarthria but improved. HEENT: NC/AT. PERRLA, EOMI. Normal external auditory canal and tympanic membrane. Nares patent, normal nasal mucosa. MMM, normal oropharynx. NECK: Supple. Normal ROM. Trachea midline. No LAD, no thyromegaly. RESPIRATORY: Normal respiratory effort. CTABL. No wheezing, rhonchi or rales. CVS: RRR. Normal S1/S2. No M/R/G. No JVD. No carotid bruits. ABDOMEN: Soft, non-tender, non-distended. +BS. No hepatosplenomegaly. EXTREMITIES: No cyanosis, clubbing or edema. Normal tone and ROM. Right-sided weakness of upper extremity 3/5 but improved. left arm strength 5/5. Capillary refill <2s. 2+ distal pulses B/L. Abnormal right-sided nose to finger test. NEURO: AAOx3. Right facial droop but improved. cranial nerves II to XII intact. Sensation normal. Reflex symmetric. Gait normal. SKIN: Warm. Intact. No rashes, lesions or erythema. Weight Dosing Weight: 84.5 kg (03/11/22) Dosing Weight: 84.5 kg (03/11/22) Medications Medications (9) Active Scheduled: (7) aspirin 81 mg Chewable 81 mg 1 tab(s), Oral, qDayM atorvastatin 40 mg tablet 40 mg 1 tab(s), Oral, qDay folic acid 1 mg tablet 1 mg 1 tab(s), Oral, qDay heparin 5,000 units/mL (1 mL) vial 5,000 unit(s) 1 mL, Subcutaneous, q8h losartan 25 mg tablet 25 mg 1 tab(s), Oral, qDay multivitamin tablet 1 tab(s), Oral, qDayM thiamine (w/calcium) 100 mg tablet 100 mg 1 tab(s), Oral, qDay Continuous: (0) PRN: (2) LORAZEPam 2 mg/mL 1 mL vial 0.5 mg 0.25 mL, IV Push, q30min melatonin 3 mg tablet 3 mg 1 tab(s), Oral, qHS Lab Results 03/12 06:46 WBC: 8.3 Hgb: 16.5 Hct: 47.4 Platelet: 330 Neutrophil %: 51.3 Glucose Level: 99 Sodium Level: 141 Potassium Level: 3.9 BUN: 15.0 Creatinine Lvl (s): 0.76 03/11 08:02 WBC: 8.1 Hgb: 16.2 Hct: 45.9 Platelet: 331 Neutrophil %: 60.3 Protime: 12.5 PT International Ratio: 1.0 Glucose Level: 105 Sodium Level: 143 Potassium Level: 3.6 BUN: 10.0 Creatinine Lvl (s): 0.75 EKG No qualifying data available. Assessment/Plan Ischemic stroke most likely left-sided MCA distribution History of HTN History of HLD Alcohol abuse DVT prophylaxis Full code Pt is a 71 year old male with a PMHx of HTN and HLD who presents to the ED for evaluation of right sided upper and lower extremity weakness and dysarthria. Pt was found to be Hypertensive, right facial droop, dysarthria, decreased strength and sensation to RUE and RLE noted on exam. Pt was last known to be normal last night before bed. CT head/brain was neg, no intracranial bleed. However, pt is not a candidate for TPA. CT angiography head and neck showed right A2 segment occlusion. Mild to moderate left post communicating P2 aspirate, no acute arterial abnormality of the neck. Approximately 55% left and 20% right ICA stenosis. Ischemic stroke most likely due to left-sided MCA distribution -Patient has mild improvement of right-sided facial droop, dysarthria and right arm weakness -Patient did report increased difficulty with swallowing, will evaluate with bedside swallow to determine risk for aspiration -Patient is out of tPA window since onset of symptoms was Wednesday 9 AM -NIH of 4 -CT head/brain was neg, no intracranial bleed. -CT angiography head and neck showed right A2 segment occlusion but is suspected to be a chronic finding, and does not explain current unilateral weakness in right arm. -MRI still pending -TTE is still pending -A1c 5.4, TSH 4.017, and LDL 195; she is already started on atorvastatin 40 mg -Continue patient on ASA 81 mg -Neuro has been consulted and appreciate their recommendation -PT/OT recommend acute rehab at this time, appreciate their recommendation History of HTN -Blood pressure continues to be 162-180 systolic and 90-110 diastolic -Has been more than 24 hours since onset of weakness -Patient was previously on losartan, restart on losartan 25 mg History of HLD -Total cholesterol 271, triglyceride 168 and LDL 195 -She has already been started on atorvastatin 40 mg Alcohol abuse -drinks 12 packs of beer daily, last drink 2 days prior to admission -Placed on CIWA protocol -Folate and B12 have been administered Hypokalemia -Potassium of 3.6 -Potassium was repleted DVT prophylaxis -Patient given Lovenox FULL CODE Digitally Signed by MAIA REYES MD on 03/12/2022 04:51 PM [facility] [id number] Note ORIGINAL EXAMINATION: MRI OF THE BRAIN WITHOUT CONTRAST 03/12/2022 7:02 pm TECHNIQUE: Multiplanar multisequence MRI of the brain was performed without the administration of intravenous contrast. COMPARISON: CT and CTA head 03/10/2022 HISTORY: ORDERING SYSTEM PROVIDED HISTORY: Reason for Exam: TIA/Stroke FINDINGS: INTRACRANIAL STRUCTURES/VENTRICLES: 2.3 x 1.3 cm restricted diffusion in the left periventricular caudothalamic groove region. No abnormal parenchymal susceptibility on GRE. Chronic encephalomalacia left postcentral gyrus. Chronic lacunar infarcts in the left putamen, right thalamus, and bilateral subinsular regions. Confluent white matter FLAIR hyperintensities extending up to the right superior frontal gyrus are nonspecific but statistically most consistent with mild chronic microvascular angiopathy. The ventricles are mildly enlarged with commensurate enlargement of the sulci most consistent with mild age-related volume loss. No mass effect or midline shift. No evidence of an acute intracranial hemorrhage. The sellar/suprasellar regions appear unremarkable. The normal signal voids within the major intracranial vessels appear maintained. ORBITS: The visualized portion of the orbits demonstrate no acute abnormality. SINUSES: T2 hyperintense right maxillary sinus retention cyst. BONES/SOFT TISSUES: The bone marrow signal intensity appears normal. The soft tissues demonstrate no acute abnormality. 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 Volume loss. Communication was initiated by this physician via the radiology results communication center in PACS at 7:12 pm on 03/12/2022 to be communicated to a licensed caregiver. The Interpreted by: Ezequiel Aponte Preliminary Report By: Ezequiel Aponte Electronically signed By Ezequiel Aponte Dictated Date: 03/12/2022 7:08:28 PM Prelim Date: 03/12/2022 7:13:35 PM Sign Date: 03/12/2022 7:13:35 PM Ordering Provider: [facility]07-21-2022 Note ORIGINAL EXAMINATION: MRI OF THE BRAIN WITHOUT CONTRAST 03/12/2022 7:02 pm TECHNIQUE: Multiplanar multisequence MRI of the brain was performed without the administration of intravenous contrast. COMPARISON: CT and CTA head 03/10/2022 HISTORY: ORDERING SYSTEM PROVIDED HISTORY: Reason for Exam: TIA/Stroke FINDINGS: INTRACRANIAL STRUCTURES/VENTRICLES: 2.3 x 1.3 cm restricted diffusion in the left periventricular caudothalamic groove region. No abnormal parenchymal susceptibility on GRE. Chronic encephalomalacia left postcentral gyrus. Chronic lacunar infarcts in the left putamen, right thalamus, and bilateral subinsular regions. Confluent white matter FLAIR hyperintensities extending up to the right superior frontal gyrus are nonspecific but statistically most consistent with mild chronic microvascular angiopathy. The ventricles are mildly enlarged with commensurate enlargement of the sulci most consistent with mild age-related volume loss. No mass effect or midline shift. No evidence of an acute intracranial hemorrhage. The sellar/suprasellar regions appear unremarkable. The normal signal voids within the major intracranial vessels appear maintained. ORBITS: The visualized portion of the orbits demonstrate no acute abnormality. SINUSES: T2 hyperintense right maxillary sinus retention cyst. BONES/SOFT TISSUES: The bone marrow signal intensity appears normal. The soft tissues demonstrate no acute abnormality. 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 Volume loss. Communication was initiated by this physician via the radiology results communication center in PACS at 7:12 pm on 03/12/2022 to be communicated to a licensed caregiver. The Interpreted by: Ezequiel Aponte Preliminary Report By: Ezequiel Aponte Electronically signed By Ezequiel Aponte Dictated Date: 03/12/2022 7:08:28 PM Prelim Date: 03/12/2022 7:13:35 PM Sign Date: 03/12/2022 7:13:35 PM Ordering Provider: [facility]07-21-2022 Note Date of Service 03/12/2022 Chief Complaint Right arm weakness, right facial droop, and dysarthria Subjective Patient was seen at bedside. No acute events overnight. Patient reported mild improvement of right arm weakness and improvement with speech. He did report difficulty with swallowing of food. He denied any headaches, lightheadedness, dizziness, chest pain, shortness of breath, diaphoresis, palpitation and nausea or vomiting. Objective Vitals and Measurements T: 36.4 C (Oral) TMIN: 36.4 C (Oral) TMAX: 36.9 C (Oral) HR: 94(Monitored) RR: 18 BP: 139/81 SpO2: 98% Intake and Output 7AM Yesterday to 7AM Today Intake and Output (Last 24 hours) Intake Oral Intake 480.00 Output Stool Count 0.00 Emesis Count 0.00 Total Summary Total Intake 480.00 Total Output 0.00 Fluid Balance 480.00 Physical Exam GEN: NAD. Well appearing. Alert. Interactive. Good hygiene. +dysarthria but improved. HEENT: NC/AT. PERRLA, EOMI. Normal external auditory canal and tympanic membrane. Nares patent, normal nasal mucosa. MMM, normal oropharynx. NECK: Supple. Normal ROM. Trachea midline. No LAD, no thyromegaly. RESPIRATORY: Normal respiratory effort. CTABL. No wheezing, rhonchi or rales. CVS: RRR. Normal S1/S2. No M/R/G. No JVD. No carotid bruits. ABDOMEN: Soft, non-tender, non-distended. +BS. No hepatosplenomegaly. EXTREMITIES: No cyanosis, clubbing or edema. Normal tone and ROM. Right-sided weakness of upper extremity 3/5 but improved. left arm strength 5/5. Capillary refill <2s. 2+ distal pulses B/L. Abnormal right-sided nose to finger test. NEURO: AAOx3. Right facial droop but improved. cranial nerves II to XII intact. Sensation normal. Reflex symmetric. Gait normal. SKIN: Warm. Intact. No rashes, lesions or erythema. Weight Dosing Weight: 84.5 kg (03/11/22) Dosing Weight: 84.5 kg (03/11/22) Medications Medications (9) Active Scheduled: (7) aspirin 81 mg Chewable 81 mg 1 tab(s), Oral, qDayM atorvastatin 40 mg tablet 40 mg 1 tab(s), Oral, qDay folic acid 1 mg tablet 1 mg 1 tab(s), Oral, qDay heparin 5,000 units/mL (1 mL) vial 5,000 unit(s) 1 mL, Subcutaneous, q8h losartan 25 mg tablet 25 mg 1 tab(s), Oral, qDay multivitamin tablet 1 tab(s), Oral, qDayM thiamine (w/calcium) 100 mg tablet 100 mg 1 tab(s), Oral, qDay Continuous: (0) PRN: (2) LORAZEPam 2 mg/mL 1 mL vial 0.5 mg 0.25 mL, IV Push, q30min melatonin 3 mg tablet 3 mg 1 tab(s), Oral, qHS Lab Results 03/12 06:46 WBC: 8.3 Hgb: 16.5 Hct: 47.4 Platelet: 330 Neutrophil %: 51.3 Glucose Level: 99 Sodium Level: 141 Potassium Level: 3.9 BUN: 15.0 Creatinine Lvl (s): 0.76 03/11 08:02 WBC: 8.1 Hgb: 16.2 Hct: 45.9 Platelet: 331 Neutrophil %: 60.3 Protime: 12.5 PT International Ratio: 1.0 Glucose Level: 105 Sodium Level: 143 Potassium Level: 3.6 BUN: 10.0 Creatinine Lvl (s): 0.75 EKG No qualifying data available. Assessment/Plan Ischemic stroke most likely left-sided MCA distribution History of HTN History of HLD Alcohol abuse DVT prophylaxis Full code Pt is a 71 year old male with a PMHx of HTN and HLD who presents to the ED for evaluation of right sided upper and lower extremity weakness and dysarthria. Pt was found to be Hypertensive, right facial droop, dysarthria, decreased strength and sensation to RUE and RLE noted on exam. Pt was last known to be normal last night before bed. CT head/brain was neg, no intracranial bleed. However, pt is not a candidate for TPA. CT angiography head and neck showed right A2 segment occlusion. Mild to moderate left post communicating P2 aspirate, no acute arterial abnormality of the neck. Approximately 55% left and 20% right ICA stenosis. Ischemic stroke most likely due to left-sided MCA distribution -Patient has mild improvement of right-sided facial droop, dysarthria and right arm weakness -Patient did report increased difficulty with swallowing, will evaluate with bedside swallow to determine risk for aspiration -Patient is out of tPA window since onset of symptoms was Wednesday 9 AM -NIH of 4 -CT head/brain was neg, no intracranial bleed. -CT angiography head and neck showed right A2 segment occlusion but is suspected to be a chronic finding, and does not explain current unilateral weakness in right arm. -MRI still pending -TTE is still pending -A1c 5.4, TSH 4.017, and LDL 195; she is already started on atorvastatin 40 mg -Continue patient on ASA 81 mg -Neuro has been consulted and appreciate their recommendation -PT/OT recommend acute rehab at this time, appreciate their recommendation History of HTN -Blood pressure continues to be 162-180 systolic and 90-110 diastolic -Has been more than 24 hours since onset of weakness -Patient was previously on losartan, restart on losartan 25 mg History of HLD -Total cholesterol 271, triglyceride 168 and LDL 195 -She has already been started on atorvastatin 40 mg Alcohol abuse -drinks 12 packs of beer daily, last drink 2 days prior to admission -Placed on CIWA protocol -Folate and B12 have been administered Hypokalemia -Potassium of 3.6 -Potassium was repleted DVT prophylaxis -Patient given Lovenox FULL CODE Digitally Signed by MAIA REYES MD on 03/12/2022 04:51 PM [facility] [id number] History and physical note Date of Service 03/10/22 Subjective Pt is a 71 year old male with a PMHx of HTN and HLD who presents to the ED for evaluation of right sided upper and lower extremity weakness and slurred speech. Pt was last know to be normal last night when he went to bed. He states that he woke up this morning at about 9:00 AM, could not move his right arm and when he attempted to get up, he couldn't due to weakness of his legs. Pt states states his sx got worse, he noted slurred speech and called his nephew who called EMS. Pt endorses feeling light headed when he stood up this morning, but denies any CP, SOB, SANDOVAL, syncope, palpitations, blurry vision, fecal or bowel incontinence, numbness or tingling. Pt denies any N/V or diaphoresis. Pt denies any prior h/o stroke. Pt reports two episodes of fall, first one was 4 weeks ago, second episode was 1 week ago. Pt denied any LOC or hitting his head at both times. He reports 5/10 constant neck pain s/p fall 1 week ago,states that pain is relieved by Tylenol. He states he was not evaluated for either episodes of fall. Pt endorses non- compliance of Cozaar 10 mg and Crestor 5mg, states he has not taken medication in 7 years. Pt denies any family h/o stroke. He drinks 12 pack of beer daily, last drink was 2 days ago. Pt is a former smoker, quit 15 years ago. In ED, vitals were stable except BP 185/106. Labs were unremarkable. CT head/brain no contrast was negative, no intracranial bleed. CT angiography head and neck showed right A2 segment occlusion. Mild to moderate left post communicating P2 aspirate, no acute arterial abnormality of the neck. Approxi mately 55% left and 20% right ICA stenosis. CXR was negative, EKG showed sinus tachycardia. Pt was given ASA 325 mg in ED and admitted to [facility] for eval of stroke. Review of Systems All systems reviewed including constitutional, ENT, eyes, skin, respiratory, cardiovascular, gastrointestinal, musculoskeletal, neurologic, psychiatric and negative except as mentioned above Objective Vitals and Measurements T: 36.6 C (Oral) HR: 96(Monitored) RR: 15 BP: 185/106 SpO2: 98% WT: 84.5 kg Intake and Output 7AM Yesterday to 7AM Today Intake and Output (Last 24 hours) Intake Output Total Summary Total Intake 0.00 Total Output 0.00 Fluid Balance 0.00 Physical Exam GENERAL: awake, alert, NAD Head: atraumatic Eyes: PERRL, EOMI ENT: mucous membranes moist Neck: supple CARDIO: regular rate and rhythm, no murmurs RESP: clear to auscultation bilaterally, no wheeze/rhonchi/rales ABD: soft, non-distended, non-tender EXT: warm and well-perfused, no edema SKIN: warm and dry NEURO: alert, mild dysarthria, no apparent aphasia, right lower facial droop noted, drift right upper extremity but does not hit bed, no drift in lower extremities, normal finger-nose and kinx-wr-chwm as limited by his mild weakness, 4/5 strength noted to RUE and RLE, 5/5 strength to LUE and LLE, de creased sensation to RLE. PSYCH: cooperative and calm Weight Dosing Weight: 84.5 kg (03/10/22) Medications No qualifying data available Lab Results 03/10 18:42 WBC: 7.7 Hgb: 16.4 Hct: 46.2 Platelet: 359 Neutrophil %: 54.6 Protime: 12.1 PT International Ratio: 1.0 Glucose Level: 103 Sodium Level: 145 Potassium Level: 3.5 BUN: 9.0 Creatinine Lvl (s): 0.89 Imaging Results and Diagnostics CT Angiography Neck w/ Contrast Result Date: March 10, 2022 Verified By: EZEQUIEL APONTE DO CLINICAL STATEMENT: IMPRESSION: Right A2 segment occlusion. Mild to moderate left post communicating P2 aspirate No acute arterial abnormality of the neck. Approximately 55% left and 20% right ICA stenosis. Findings were discussed with Dr. SHERIF ARGUELLO at 8:56 pm on 03/10/2022. CT Angiography Head w/ Contrast Result Date: March 10, 2022 Verified By: EZEQUIEL APONTE DO CLINICAL STATEMENT: IMPRESSION: Right A2 segment occlusion. Mild to moderate left post communicating P2 aspirate No acute arterial abnormality of the neck. Approximately 55% left and 20% right ICA stenosis. Findings were discussed with Dr. SHERIF ARGUELLO at 8:56 pm on 03/10/2022. CT Head or Brain w/o Contrast Result Date: March 10, 2022 Verified By: EZEQUIEL APONTE DO CLINICAL STATEMENT: IMPRESSION: No acute intracranial abnormality. Chronic microvascular angiopathy andvolume loss. XR Chest 1 View Result Date: March 10, 2022 Verified By: SEMAJ APONTE DO CLINICAL STATEMENT: IMPRESSION: No acute cardiopulmonary findings. EKG EKG (ED) - Completed EC03/10/22: SINUS TACHYCARDIA...rate> 99 MULTIFORM VENTRICULAR PREMATURE COMPLEXES...short R-R, variable morphology ABNORMAL R-WAVE PROGRESSION, EARLY TRANSITION...QRS area>0 in V2 BORDERLINE PROLONGED QT INTERVAL...QTc >475mS -- 03/10/22 18:37:00 EDT, 03/10/22 18:37:00 EDT Assessment/Plan 1. CVA/TIA 2. Alcohol abuse 3. History of HTN 4. History of HLD Pt is a 71 year old male with a PMHx of HTN and HLD who presents to the ED for evaluation of right sided upper and lower extremity weakness and slurred speech. Pt was found to be Hypertensive, right facial droop, dysarthria, decreased strength and sensation to RUE and RLE noted on exam. Pt was lastknown to be normal last night before bed. CT head/brain was neg, no intracranial bleed. However, ptis not a candidate for TPA. CT angiography head and neck showed right A2 segment occlusion. Mild tomoderate left post communicating P2 aspirate, no acute arterial abnormality of the neck. Approximately 55% left and 20% right ICA stenosis. CVA/TIA likely ischemic stroke -pt noted to have right sided weakness, right sided facial droop and slurred speech -Pt has a h/o HTN and HLD and is non compliant with meds, BP on arrival 185/106 -CT head/brain was neg, no intracranial bleed. -CT angiography head and neck showed right A2 segment occlusion. -EKG showed sinus tachycardia -will obtain echo bubble and MRI brain - ASA 81 mg and Atorvastatin 40 mg -neuro consult -PT/OT, bedside swallowing Alcohol abuse - drinks 12 packs of beer daily, last drink 2 days ago -No N/V, pt calm on exam, no tremors noted - will continue to monitor History of HTN -will keep BP under 185/100 -Labetalol PRN History of HLD -will obtain lipid panel -Atorvastatin 40 mg FULL CODE Digitally Signed by Benito Esquivel Medical Student on 03/11/2022 06:42 AM [id number] Note Date of Service 03/11/2022 Chief Complaint Right-sided weakness, right facial droop and dysarthria Subjective Patient was seen at bedside. No acute events overnight. Patient reported weakness in his right arm has not improved since onset. Patient also reported difficulty speaking. He has denied any headaches, dizziness, lightheadedness, nausea, vomiting, diaphoresis, chest pain, palpitations, and abdominalpain. Objective Vitals and Measurements T: 36.4 C (Oral) TMIN: 36.4 C (Oral) TMAX: 36.6 C (Oral) HR: 90(Monitored) RR: 18 BP: 169/93 BP: 168/102(Sitting) BP: 186/117(Standing) BP: 169/84(Supine) SpO2: 96% HT: 172.7 cm WT: 84.5 kg BMI: 28.33 Intake and Output 7AM Yesterday to 7AM Today Intake and Output (Last 24 hours) Intake Oral Intake 0.00 Output Urine Voided 300.00 Stool Count 0.00 Emesis Count 0.00 Total Summary Total Intake 0.00 Total Output 300.00 Fluid Balance -300.00 Physical Exam GEN: NAD. Well appearing. Alert. Interactive. Good hygiene. +dysarthria. HEENT: NC/AT. PERRLA, EOMI. Normal external auditory canal and tympanic membrane. Nares patent, normal nasal mucosa. MMM, normal oropharynx. NECK: Supple. Normal ROM. Trachea midline. No LAD, no thyromegaly. RESPIRATORY: Normal respiratory effort. CTABL. No wheezing, rhonchi or rales. CVS: RRR. Normal S1/S2. No M/R/G. No JVD. No carotid bruits. ABDOMEN: Soft, non-tender, non-distended. +BS. No hepatosplenomegaly. EXTREMITIES: No cyanosis, clubbing or edema. Normal tone and ROM. Right-sided weakness of upper extremity 4/5. left arm strength 5/5. Capillary refill <2s. 2+ distal pulses B/L. NEURO: AAOx3. Right facial droop. cranial nerves II to XII intact. Sensation normal. Reflex symmetric. Gait normal. SKIN: Warm. Intact. No rashes, lesions or erythema. Weight Dosing Weight: 84.5 kg (03/11/22) Dosing Weight: 84.5 kg (03/11/22) Medications Medications (4) Active Scheduled: (2) atorvastatin 40 mg tablet 40 mg 1 tab(s), Oral, qDay heparin 5,000 units/mL (1 mL) vial 5,000 unit(s) 1 mL, Subcutaneous, q8h Continuous: (0) PRN: (2) labetalol 5 mg/mL (4 mL) INJ 10 mg 2 mL, IV Push, Once melatonin 3 mg tablet 3 mg 1 tab(s), Oral, qHS Lab Results 03/11 08:02 WBC: 8.1 Hgb: 16.2 Hct: 45.9 Platelet: 331 Neutrophil %: 60.3 Protime: 12.5 PT International Ratio: 1.0 Glucose Level: 105 Sodium Level: 143 Potassium Level: 3.6 BUN: 10.0 Creatinine Lvl (s): 0.75 03/10 18:42 WBC: 7.7 Hgb: 16.4 Hct: 46.2 Platelet: 359 Neutrophil %: 54.6 Protime: 12.1 PT International Ratio: 1.0 Glucose Level: 103 Sodium Level: 145 Potassium Level: 3.5 BUN: 9.0 Creatinine Lvl (s): 0.89 Imaging Results and Diagnostics CT Angiography Neck w/ Contrast Result Date: March 10, 2022 Verified By: EZEQUIEL APONTE DO CLINICAL STATEMENT: IMPRESSION: Right A2 segment occlusion. Mild to moderate left post communicating P2 aspirate No acute arterial abnormality of the neck. Approximately 55% left and 20% right ICA stenosis. Findings were discussed with Dr. SHERIF ARGUELLO at 8:56 pm on 03/10/2022. CT Angiography Head w/ Contrast Result Date: March 10, 2022 Verified By: EZEQUIEL APONTE DO CLINICAL STATEMENT: IMPRESSION: Right A2 segment occlusion. Mild to moderate left post communicating P2 aspirate No acute arterial abnormality of the neck. Approximately 55% left and 20% right ICA stenosis. Findings were discussed with Dr. SHERIF ARGUELLO at 8:56 pm on 03/10/2022. CT Head or Brain w/o Contrast Result Date: March 10, 2022 Verified By: EZEQUIEL APONTE DO CLINICAL STATEMENT: IMPRESSION: No acute intracranial abnormality. Chronic microvascular angiopathy andvolume loss. XR Chest 1 View Result Date: March 10, 2022 Verified By: SEMAJ APONTE DO CLINICAL STATEMENT: IMPRESSION: No acute cardiopulmonary findings. EKG EKG (ED) - Completed -- 03/10/22 18:37:00 EDT, 03/10/22 18:37:00 EDT Electrocardiogram - InProcess -- 03/11/22 6:52:00 EDT, Complete by Nursing Assessment/Plan Ischemic stroke most likely left-sided MCA distribution History of HTN History of HLD Alcohol abuse DVT prophylaxis Full code Pt is a 71 year old male with a PMHx of HTN and HLD who presents to the ED for evaluation of right sided upper and lower extremity weakness and dysarthria. Pt was found to be Hypertensive, right facial droop, dysarthria, decreased strength and sensation to RUE and RLE noted on exam. Pt was last known to be normal last night before bed. CT head/brain was neg, no intracranial bleed. However, pt is not a candidate for TPA. CT angiography head and neck showed right A2 segment occlusion. Mild to moderate left post communicating P2 aspirate, no acute arterial abnormality of the neck. Approximately 55% left and 20% right ICA stenosis. Ischemic stroke most likely due to left-sided MCA distribution -Patient still continues to have weakness of the right arm, dysarthria and right facial droop -Patient is out of tPA window since onset of symptoms was Wednesday 9 AM -NIH of 4 -Pt has a h/o HTN and HLD and is non compliant with meds, BP on arrival 185/106 -CT head/brain was neg, no intracranial bleed. -CT angiography head and neck showed right A2 segment occlusion but is suspected to be a chronic finding, and does not explain current unilateral weakness in right arm. -Will obtain MRI of the brain to determine location of ischemic stroke -Will obtain an echocardiogram to rule out cardioembolic or possible patent golden ovale - we will also order risk stratification labs including lipid panel, TSH and A1c -Continue patient on ASA 81 mg and Atorvastatin 40 mg -Neuro has been consulted and appreciate their recommendation Alcohol abuse - drinks 12 packs of beer daily, last drink 2 days prior to admission -Placed on CICA protocol -Folate and B12 have been administered History of HTN -Blood pressure continues to be 162-180 systolic and 90-110 diastolic -Has been more than 24 hours since onset of weakness -Patient was previously on losartan, restart on losartan 25 mg History of HLD -will obtain lipid panel -Atorvastatin 40 mg DVT prophylaxis -Patient given Lovenox FULL CODE Digitally Signed by MAIA REYES MD on 03/11/2022 06:50 PM [facility] [id number] Note Date of Service 03/11/2022 Chief Complaint Right-sided weakness, right facial droop and dysarthria Subjective Patient was seen at bedside. No acute events overnight. Patient reported weakness in his right arm has not improved since onset. Patient also reported difficulty speaking. He has denied any headaches, dizziness, lightheadedness, nausea, vomiting, diaphoresis, chest pain, palpitations, and abdominalpain. Objective Vitals and Measurements T: 36.4 C (Oral) TMIN: 36.4 C (Oral) TMAX: 36.6 C (Oral) HR: 90(Monitored) RR: 18 BP: 169/93 BP: 168/102(Sitting) BP: 186/117(Standing) BP: 169/84(Supine) SpO2: 96% HT: 172.7 cm WT: 84.5 kg BMI: 28.33 Intake and Output 7AM Yesterday to 7AM Today Intake and Output (Last 24 hours) Intake Oral Intake 0.00 Output Urine Voided 300.00 Stool Count 0.00 Emesis Count 0.00 Total Summary Total Intake 0.00 Total Output 300.00 Fluid Balance -300.00 Physical Exam GEN: NAD. Well appearing. Alert. Interactive. Good hygiene. +dysarthria. HEENT: NC/AT. PERRLA, EOMI. Normal external auditory canal and tympanic membrane. Nares patent, normal nasal mucosa. MMM, normal oropharynx. NECK: Supple. Normal ROM. Trachea midline. No LAD, no thyromegaly. RESPIRATORY: Normal respiratory effort. CTABL. No wheezing, rhonchi or rales. CVS: RRR. Normal S1/S2. No M/R/G. No JVD. No carotid bruits. ABDOMEN: Soft, non-tender, non-distended. +BS. No hepatosplenomegaly. EXTREMITIES: No cyanosis, clubbing or edema. Normal tone and ROM. Right-sided weakness of upper extremity 4/5. left arm strength 5/5. Capillary refill <2s. 2+ distal pulses B/L. NEURO: AAOx3. Right facial droop. cranial nerves II to XII intact. Sensation normal. Reflex symmetric. Gait normal. SKIN: Warm. Intact. No rashes, lesions or erythema. Weight Dosing Weight: 84.5 kg (03/11/22) Dosing Weight: 84.5 kg (03/11/22) Medications Medications (4) Active Scheduled: (2) atorvastatin 40 mg tablet 40 mg 1 tab(s), Oral, qDay heparin 5,000 units/mL (1 mL) vial 5,000 unit(s) 1 mL, Subcutaneous, q8h Continuous: (0) PRN: (2) labetalol 5 mg/mL (4 mL) INJ 10 mg 2 mL, IV Push, Once melatonin 3 mg tablet 3 mg 1 tab(s), Oral, qHS Lab Results 03/11 08:02 WBC: 8.1 Hgb: 16.2 Hct: 45.9 Platelet: 331 Neutrophil %: 60.3 Protime: 12.5 PT International Ratio: 1.0 Glucose Level: 105 Sodium Level: 143 Potassium Level: 3.6 BUN: 10.0 Creatinine Lvl (s): 0.75 03/10 18:42 WBC: 7.7 Hgb: 16.4 Hct: 46.2 Platelet: 359 Neutrophil %: 54.6 Protime: 12.1 PT International Ratio: 1.0 Glucose Level: 103 Sodium Level: 145 Potassium Level: 3.5 BUN: 9.0 Creatinine Lvl (s): 0.89 Imaging Results and Diagnostics CT Angiography Neck w/ Contrast Result Date: March 10, 2022 Verified By: EZEQUIEL APONTE DO CLINICAL STATEMENT: IMPRESSION: Right A2 segment occlusion. Mild to moderate left post communicating P2 aspirate No acute arterial abnormality of the neck. Approximately 55% left and 20% right ICA stenosis. Findings were discussed with Dr. SHERIF ARGUELLO at 8:56 pm on 03/10/2022. CT Angiography Head w/ Contrast Result Date: March 10, 2022 Verified By: EZEQUIEL APONTE DO CLINICAL STATEMENT: IMPRESSION: Right A2 segment occlusion. Mild to moderate left post communicating P2 aspirate No acute arterial abnormality of the neck. Approximately 55% left and 20% right ICA stenosis. Findings were discussed with Dr. SHERIF ARGUELLO at 8:56 pm on 03/10/2022. CT Head or Brain w/o Contrast Result Date: March 10, 2022 Verified By: EZEQUIEL APONTE DO CLINICAL STATEMENT: IMPRESSION: No acute intracranial abnormality. Chronic microvascular angiopathy andvolume loss. XR Chest 1 View Result Date: March 10, 2022 Verified By: SEMAJ APONTE DO CLINICAL STATEMENT: IMPRESSION: No acute cardiopulmonary findings. EKG EKG (ED) - Completed -- 03/10/22 18:37:00 EDT, 03/10/22 18:37:00 EDT Electrocardiogram - InProcess -- 03/11/22 6:52:00 EDT, Complete by Nursing Assessment/Plan Ischemic stroke most likely left-sided MCA distribution History of HTN History of HLD Alcohol abuse DVT prophylaxis Full code Pt is a 71 year old male with a PMHx of HTN and HLD who presents to the ED for evaluation of right sided upper and lower extremity weakness and dysarthria. Pt was found to be Hypertensive, right facial droop, dysarthria, decreased strength and sensation to RUE and RLE noted on exam. Pt was last known to be normal last night before bed. CT head/brain was neg, no intracranial bleed. However, pt is not a candidate for TPA. CT angiography head and neck showed right A2 segment occlusion. Mild to moderate left post communicating P2 aspirate, no acute arterial abnormality of the neck. Approximately 55% left and 20% right ICA stenosis. Ischemic stroke most likely due to left-sided MCA distribution -Patient still continues to have weakness of the right arm, dysarthria and right facial droop -Patient is out of tPA window since onset of symptoms was Wednesday 9 AM -NIH of 4 -Pt has a h/o HTN and HLD and is non compliant with meds, BP on arrival 185/106 -CT head/brain was neg, no intracranial bleed. -CT angiography head and neck showed right A2 segment occlusion but is suspected to be a chronic finding, and does not explain current unilateral weakness in right arm. -Will obtain MRI of the brain to determine location of ischemic stroke -Will obtain an echocardiogram to rule out cardioembolic or possible patent golden ovale - we will also order risk stratification labs including lipid panel, TSH and A1c -Continue patient on ASA 81 mg and Atorvastatin 40 mg -Neuro has been consulted and appreciate their recommendation Alcohol abuse - drinks 12 packs of beer daily, last drink 2 days prior to admission -Placed on CIWA protocol -Folate and B12 have been administered History of HTN -Blood pressure continues to be 162-180 systolic and 90-110 diastolic -Has been more than 24 hours since onset of weakness -Patient was previously on losartan, restart on losartan 25 mg History of HLD -will obtain lipid panel -Atorvastatin 40 mg DVT prophylaxis -Patient given Lovenox FULL CODE Digitally Signed by MAIA REYES MD on 03/11/2022 06:50 PM [facility] [id number] Neurology Consult note Date of Service March 11, 2022 Reason for Consultation Stroke Referring Physician Dr. Galaviz History of Present Illness 71-year-old male with a history of hypertension hyperlipidemia and medical noncompliance who woke up yesterday morning with right-sided weakness and slurred speech. Of note he did have a couple fallsin the prior week but no ongoing neurologic symptoms between the falls. He presented to [facility]. He was admitted for further plans. Today he feels his right-sided weakness is slightly better though his speech is slightly more slurred. As far as he knows he has neverhad a stroke in the past. Other than what is previously mentioned, nothing in particular is making symptoms better or worse and there is no associated pain. He was supposed to be on an antilipid agent at home but was noncompliant. He was not on a daily baby aspirin. Review of Systems Constitutional: as above otherwise negative Skin: as above otherwise negative Eyes: as above otherwise negative ENT: as above otherwise negative Respiratory: as above otherwise negative Cardiovascular: as above otherwise negative Gastrointestinal: as above otherwise negative Genitourinary: as above otherwise negative Musculoskeletal: as above otherwise negative Neurological: as above otherwise negative Endo: as above otherwise negative Heme: as above otherwise negative Allergy: as above otherwise negative Psychiatric: as above otherwise negative Physical Exam Vitals and Measurements T: 36.4 C (Oral) TMIN: 36.4 C (Oral) TMAX: 36.6 C (Oral) HR: 96(Monitored) RR: 18 BP: 180/98 BP: 168/102(Sitting) BP: 186/117(Standing) BP: 169/84(Supine) SpO2: 96% HT: 172.7 cm WT: 84.5 kg BMI: 28.33 Weight Dosing Weight: 84.5 kg (03/11/22) Dosing Weight: 84.5 kg (03/11/22) General: no acute distress Head: normocephalic ENT: mucous membranes moist Respiratory: breathing non-labored Cardiovascular: regular rate and rhythm. No swelling or tenderness in distal extremities. Musculoskeletal: as above and below. Psychiatric: does not appear anxious Dermatologic: skin warm Neurologic Exam Mental Status: Memory: registered 3/3 Attention/Concentration: normal Fund of knowledge: gissell Brooke Orientation: oriented to person, [facility], and date Language: normal fluency, normal comprehension, normal repetition, and normal naming Speech: dysarthric Cranial Nerves: Pupils: 4mm -> 2mm bilaterally Visual Zamarripa: full to confrontation bilaterally Fundus: not well visualized as the patient wasn't tolerating the light and having trouble fixating CN III, IV, : EOMI. No nystagmus CN V: normal light touch and temp sensation in V1, V2, V3, bilaterally. CN VII: right UMN droop CN VIII: auditory acuity intact to bedside testing CN IX/CN X: normal symmetric palate elevation, no uvula deviation CN XI: strength of trapezius and SCM muscles intact, bilaterally CN XII: tongue protrudes in the midline, no atrophy or fasciculations Sensation: Light touch: intact in all 4 extremities Temperature: intact in all 4 extremities Vibration: intact in all 4 extremities Romberg: Deferred due to fall risk Motor: Muscle Bulk: No atrophy or fasciculations Muscle Tone: physiologic tone in upper and lower extremities Involuntary movements: none Pronator drift: absent Strength: LUE: 5/5 proximally, 5/5 distally RUE: 4/5 proximally, 4/5 distally LLE: 5/5 proximally, 5/5 distally RLE: 4/5 proximally, 4/5 distally Reflexes: R L B 1 2 T 1 2 BR 1 2 P 1 2 A tr 1 Toes eq down Coordination: Xesouq-ikpt-dtdxsn movements intact on the left, limited by weakness on the right Vidd-crqm-mqwc movements deferred due to limited range of motion and/or pain Rapid alternating movements are performed with reduced speed, reduced amplitude on the right vs. the left Gait: Deferred due to fall risk Lab Results The following labs were reviewed: 03/11 08:02 WBC: 8.1 Hgb: 16.2 Hct: 45.9 Platelet: 331 Neutrophil %: 60.3 Protime: 12.5 PT International Ratio: 1.0 Glucose Level: 105 Sodium Level: 143 Potassium Level: 3.6 BUN: 10.0 Creatinine Lvl (s): 0.75 03/10 18:42 WBC: 7.7 Hgb: 16.4 Hct: 46.2 Platelet: 359 Neutrophil %: 54.6 Protime: 12.1 PT International Ratio: 1.0 Glucose Level: 103 Sodium Level: 145 Potassium Level: 3.5 BUN: 9.0 Creatinine Lvl (s): 0.89 Imaging Results and Diagnostics The following imaging reports were reviewed: CT Angiography Neck w/ Contrast Result Date: March 10, 2022 Verified By: EZEQUIEL APONTE DO CLINICAL STATEMENT: IMPRESSION: Right A2 segment occlusion. Mild to moderate left post communicating P2 aspirate No acute arterial abnormality of the neck. Approximately 55% left and 20% right ICA stenosis. Findings were discussed with Dr. SHERIF ARGUELLO at 8:56 pm on 03/10/2022. CT Angiography Head w/ Contrast Result Date: March 10, 2022 Verified By: EZEQUIEL APONTE DO CLINICAL STATEMENT: IMPRESSION: Right A2 segment occlusion. Mild to moderate left post communicating P2 aspirate No acute arterial abnormality of the neck. Approximately 55% left and 20% right ICA stenosis. Findings were discussed with Dr. SHERIF ARGUELLO at 8:56 pm on 03/10/2022. CT Head or Brain w/o Contrast Result Date: March 10, 2022 Verified By: EZEQUIEL APONTE DO CLINICAL STATEMENT: IMPRESSION: No acute intracranial abnormality. Chronic microvascular angiopathy andvolume loss. XR Chest 1 View Result Date: March 10, 2022 Verified By: SEMAJ APONTE DO CLINICAL STATEMENT: IMPRESSION: No acute cardiopulmonary findings. Images of the CT head were personally reviewed - no definite acute process was appreciated, only chronic changes were apparent EKG Sinus Assessment/Plan Stroke L ICA stenosis (55%) MRI, TTE, are pending, agree with starting aspirin and high dose Lipitor. The L ICA stenosis is a possible mechanism, though the degree of stenosis is only 55%. Will follow-up. Problem List/Past Medical History Ongoing Alcoholism /alcohol abuse High blood pressure Hyperlipidemia Kidney stone Pain Historical No qualifying data Procedure/Surgical History Lithotripsy Medications Inpatient atorvastatin, 40 mg= 1 tab(s), Oral, qDay heparin 5000 units/mL injection, 5000 unit(s)= 1 mL, Subcutaneous, q8h labetalol, 10 mg= 2 mL, IV Push, Once, PRN melatonin, 3 mg= 1 tab(s), Oral, qHS, PRN Home No active home medications Allergies NKA Social History Smoking Status - 08/07/2014 Never smoker Alcohol Use: Past., 03/01/2022 Substance Abuse Use: Never., 03/01/2022 Tobacco Nicotine Use: Never (less than 100 in lifetime)., 03/01/2022 Family History Asthma: Negative: Mother, Father, Sister, Brother, Daughter and Son. Cancer: Negative: Mother, Father, Sister, Brother, Daughter and Son. Diabetes mellitus: Negative: Mother, Father, Sister, Brother, Daughter and Son. HIV: Negative: Mother, Father, Sister, Brother and Son. HTN - Hypertension: Negative: Mother, Father, Sister, Brother, Daughter and Son. Heart disease: Negative: Mother, Father, Sister, Brother, Daughter and Son. Hepatitis: Negative: Mother, Father, Sister, Brother, Daughter and Son. Hyperchloremia: Negative: Mother, Father, Sister, Brother, Daughter and Son. Mental illness: Negative: Mother, Father, Sister, Brother, Daughter and Son. Seizure: Negative: Mother, Father, Sister, Brother, Daughter and Son. Stroke: Negative: Mother, Father, Sister, Brother, Daughter and Son. TB - Tuberculosis: Negative: Mother, Father, Sister, Brother, Daughter and Son. Digitally Signed by JOSAFAT PRASAD MD on 03/11/2022 03:26 PM [facility] [id number] History and physical note Date of Service 03/10/22 Subjective Pt is a 71 year old male with a PMHx of HTN and HLD who presents to the ED for evaluation of right sided upper and lower extremity weakness and slurred speech. Pt was last know to be normal last night when he went to bed. He states that he woke up this morning at about 9:00 AM, could not move his right arm and when he attempted to get up, he couldn't due to weakness of his legs. Pt states states his sx got worse, he noted slurred speech and called his nephew who called EMS. Pt endorses feeling light headed when he stood up this morning, but denies any CP, SOB, SANDOVAL, syncope, palpitations, blurry vision, fecal or bowel incontinence, numbness or tingling. Pt denies any N/V or diaphoresis. Pt denies any prior h/o stroke. Pt reports two episodes of fall, first one was 4 weeks ago, second episode was 1 week ago. Pt denied any LOC or hitting his head at both times. He reports 5/10 constant neck pain s/p fall 1 week ago,states that pain is relieved by Tylenol. He states he was not evaluated for either episodes of fall. Pt endorses non- compliance of Cozaar 10 mg and Crestor 5mg, states he has not taken medication in 7 years. Pt denies any family h/o stroke. He drinks 12 pack of beer daily, last drink was 2 days ago. Pt is a former smoker, quit 15 years ago. In ED, vitals were stable except BP 185/106. Labs were unremarkable. CT head/brain no contrast was negative, no intracranial bleed. CT angiography head and neck showed right A2 segment occlusion. Mild to moderate left post communicating P2 aspirate, no acute arterial abnormality of the neck. Approxi mately 55% left and 20% right ICA stenosis. CXR was negative, EKG showed sinus tachycardia. Pt was given ASA 325 mg in ED and admitted to [facility] for eval of stroke. Review of Systems All systems reviewed including constitutional, ENT, eyes, skin, respiratory, cardiovascular, gastrointestinal, musculoskeletal, neurologic, psychiatric and negative except as mentioned above Objective Vitals and Measurements T: 36.6 C (Oral) HR: 96(Monitored) RR: 15 BP: 185/106 SpO2: 98% WT: 84.5 kg Intake and Output 7AM Yesterday to 7AM Today Intake and Output (Last 24 hours) Intake Output Total Summary Total Intake 0.00 Total Output 0.00 Fluid Balance 0.00 Physical Exam GENERAL: awake, alert, NAD Head: atraumatic Eyes: PERRL, EOMI ENT: mucous membranes moist Neck: supple CARDIO: regular rate and rhythm, no murmurs RESP: clear to auscultation bilaterally, no wheeze/rhonchi/rales ABD: soft, non-distended, non-tender EXT: warm and well-perfused, no edema SKIN: warm and dry NEURO: alert, mild dysarthria, no apparent aphasia, right lower facial droop noted, drift right upper extremity but does not hit bed, no drift in lower extremities, normal finger-nose and [id number] as limited by his mild weakness, 4/5 strength noted to RUE and RLE, 5/5 strength to LUE and LLE, de creased sensation to RLE. PSYCH: cooperative and calm Weight Dosing Weight: 84.5 kg (03/10/22) Medications No qualifying data available Lab Results 03/10 18:42 WBC: 7.7 Hgb: 16.4 Hct: 46.2 Platelet: 359 Neutrophil %: 54.6 Protime: 12.1 PT International Ratio: 1.0 Glucose Level: 103 Sodium Level: 145 Potassium Level: 3.5 BUN: 9.0 Creatinine Lvl (s): 0.89 Imaging Results and Diagnostics CT Angiography Neck w/ Contrast Result Date: March 10, 2022 Verified By: EZEQUIEL APONTE DO CLINICAL STATEMENT: IMPRESSION: Right A2 segment occlusion. Mild to moderate left post communicating P2 aspirate No acute arterial abnormality of the neck. Approximately 55% left and 20% right ICA stenosis. Findings were discussed with Dr. SHERIF ARGUELLO at 8:56 pm on 03/10/2022. CT Angiography Head w/ Contrast Result Date: March 10, 2022 Verified By: EZEQUIEL APONTE DO CLINICAL STATEMENT: IMPRESSION: Right A2 segment occlusion. Mild to moderate left post communicating P2 aspirate No acute arterial abnormality of the neck. Approximately 55% left and 20% right ICA stenosis. Findings were discussed with Dr. SHERIF ARGEULLO at 8:56 pm on 03/10/2022. CT Head or Brain w/o Contrast Result Date: March 10, 2022 Verified By: EZEQUIEL APONTE DO CLINICAL STATEMENT: IMPRESSION: No acute intracranial abnormality. Chronic microvascular angiopathy andvolume loss. XR Chest 1 View Result Date: March 10, 2022 Verified By: SEMAJ APONTE DO CLINICAL STATEMENT: IMPRESSION: No acute cardiopulmonary findings. EKG EKG (ED) - Completed EC03/10/22: SINUS TACHYCARDIA...rate> 99 MULTIFORM VENTRICULAR PREMATURE COMPLEXES...short R-R, variable morphology ABNORMAL R-WAVE PROGRESSION, EARLY TRANSITION...QRS area>0 in V2 BORDERLINE PROLONGED QT INTERVAL...QTc >475mS -- 03/10/22 18:37:00 EDT, 03/10/22 18:37:00 EDT Assessment/Plan 1. CVA/TIA 2. Alcohol abuse 3. History of HTN 4. History of HLD Pt is a 71 year old male with a PMHx of HTN and HLD who presents to the ED for evaluation of right sided upper and lower extremity weakness and slurred speech. Pt was found to be Hypertensive, right facial droop, dysarthria, decreased strength and sensation to RUE and RLE noted on exam. Pt was lastknown to be normal last night before bed. CT head/brain was neg, no intracranial bleed. However, ptis not a candidate for TPA. CT angiography head and neck showed right A2 segment occlusion. Mild tomoderate left post communicating P2 aspirate, no acute arterial abnormality of the neck. Approximately 55% left and 20% right ICA stenosis. CVA/TIA likely ischemic stroke -pt noted to have right sided weakness, right sided facial droop and slurred speech -Pt has a h/o HTN and HLD and is non compliant with meds, BP on arrival 185/106 -CT head/brain was neg, no intracranial bleed. -CT angiography head and neck showed right A2 segment occlusion. -EKG showed sinus tachycardia -will obtain echo bubble and MRI brain - ASA 81 mg and Atorvastatin 40 mg -neuro consult -PT/OT, bedside swallowing Alcohol abuse - drinks 12 packs of beer daily, last drink 2 days ago -No N/V, pt calm on exam, no tremors noted - will continue to monitor History of HTN -will keep BP under 185/100 -Labetalol PRN History of HLD -will obtain lipid panel -Atorvastatin 40 mg FULL CODE Digitally Signed by Benito Esquivel Medical Student on 03/11/2022 06:42 AM [id number] Note ORIGINAL EXAMINATION: CTA OF THE HEAD WITH CONTRAST; CTA OF THE NECK 03/10/2022 8:23 pm; 03/10/2022 8:41 pm: TECHNIQUE: CTA of the head/brain was performed with the administration of intravenous contrast. Multiplanar reformatted images are provided for review. MIP images are provided for review. Automated exposure control, iterative reconstruction, and/or weight based adjustment of the mA/kV was utilized to reduce the radiation dose to as low as reasonably achievable.; CTA of the neck was performed with the administration of intravenous contrast. Multiplanar reformatted images are provided for review. MIP images are provided for review. Stenosis of the internal carotid arteries measured using NASCET criteria. Automated exposure control, iterative reconstruction, and/or weight based adjustment of the mA/kV was utilized to reduce the radiation dose to as low as reasonably achievable. COMPARISON: None. HISTORY: ORDERING SYSTEM PROVIDED HISTORY: Reason for Exam: STROKE, CHANGE IN MENTAL STATUS, WEAKNESS, APHASIA, RT SIDED WEAKNESS stroke; ORDERING SYSTEM PROVIDED HISTORY: Reason for Exam: STROKE, CHANGE IN MENTAL STATUS, WEAKNESS, APHASIA, RT SIDED WEAKNESS Stroke, emergency patient FINDINGS: Venous contamination obscures some details. CTA NECK: AORTIC ARCH/ARCH VESSELS: No dissection or arterial injury. No significant stenosis of the brachiocephalic or subclavian arteries. CAROTID ARTERIES: Approximately 55% left and 20% right ICA stenosis secondary to mixed plaque. No dissection or arterial injury. Retropharyngeal course of the right ICA and left ECA. VERTEBRAL ARTERIES: Left dominant. No dissection, arterial injury, or significant stenosis. SOFT TISSUES: No focal consolidation in the imaged lungs. BONES: No acute osseous abnormality. CTA HEAD: ANTERIOR CIRCULATION: The right post communicating A2 segment is occluded. Carotid siphon calcifications result in at most mild ICA stenosis bilaterally. Otherwise no significant stenosis of the intracranial internal carotid, left anterior cerebral, or either middle cerebral arteries. No aneurysm. There is an ACOM. POSTERIOR CIRCULATION: Mild to moderate left post communicating P2 segment stenosis. No significant stenosis of the vertebral, basilar, or right posterior cerebral arteries. No aneurysm. The origins of the PICA-AICA complex and SCAs appear normal. A robust right PCOM is associated with a hypoplastic right P1 segment. The left PCOM is small. OTHER: No dural venous sinus thrombosis on this non-dedicated study. BRAIN: No mass effect or midline shift. No extra-axial fluid collection. The castaneda-white differentiation is maintained. IMPRESSION: Right A2 segment occlusion. Mild to moderate left post communicating P2 aspirate No acute arterial abnormality of the neck. Approximately 55% left and 20% right ICA stenosis. Findings were discussed with Dr. SHERIF ARGUELLO at 8:56 pm on 03/10/2022. Interpreted by: Ezequiel Aponte Preliminary Report By: Ezequiel Aponte Electronically signed By Ezequiel Aponte Dictated Date: 03/10/2022 8:47:00 PM Prelim Date: 03/10/2022 9:00:17 PM Sign Date: 03/10/2022 9:00:17 PM Ordering Provider: SHERIF ARGUELLO [facility] [id number] Note ORIGINAL EXAMINATION: CTA OF THE HEAD WITH CONTRAST; CTA OF THE NECK 03/10/2022 8:23 pm; 03/10/2022 8:41 pm: TECHNIQUE: CTA of the head/brain was performed with the administration of intravenous contrast. Multiplanar reformatted images are provided for review. MIP images are provided for review. Automated exposure control, iterative reconstruction, and/or weight based adjustment of the mA/kV was utilized to reduce the radiation dose to as low as reasonably achievable.; CTA of the neck was performed with the administration of intravenous contrast. Multiplanar reformatted images are provided for review. MIP images are provided for review. Stenosis of the internal carotid arteries measured using NASCET criteria. Automated exposure control, iterative reconstruction, and/or weight based adjustment of the mA/kV was utilized to reduce the radiation dose to as low as reasonably achievable. COMPARISON: None. HISTORY: ORDERING SYSTEM PROVIDED HISTORY: Reason for Exam: STROKE, CHANGE IN MENTAL STATUS, WEAKNESS, APHASIA, RT SIDED WEAKNESS stroke; ORDERING SYSTEM PROVIDED HISTORY: Reason for Exam: STROKE, CHANGE IN MENTAL STATUS, WEAKNESS, APHASIA, RT SIDED WEAKNESS Stroke, emergency patient FINDINGS: Venous contamination obscures some details. CTA NECK: AORTIC ARCH/ARCH VESSELS: No dissection or arterial injury. No significant stenosis of the brachiocephalic or subclavian arteries. CAROTID ARTERIES: Approximately 55% left and 20% right ICA stenosis secondary to mixed plaque. No dissection or arterial injury. Retropharyngeal course of the right ICA and left ECA. VERTEBRAL ARTERIES: Left dominant. No dissection, arterial injury, or significant stenosis. SOFT TISSUES: No focal consolidation in the imaged lungs. BONES: No acute osseous abnormality. CTA HEAD: ANTERIOR CIRCULATION: The right post communicating A2 segment is occluded. Carotid siphon calcifications result in at most mild ICA stenosis bilaterally. Otherwise no significant stenosis of the intracranial internal carotid, left anterior cerebral, or either middle cerebral arteries. No aneurysm. There is an ACOM. POSTERIOR CIRCULATION: Mild to moderate left post communicating P2 segment stenosis. No significant stenosis of the vertebral, basilar, or right posterior cerebral arteries. No aneurysm. The origins of the PICA-AICA complex and SCAs appear normal. A robust right PCOM is associated with a hypoplastic right P1 segment. The left PCOM is small. OTHER: No dural venous sinus thrombosis on this non-dedicated study. BRAIN: No mass effect or midline shift. No extra-axial fluid collection. The castaneda-white differentiation is maintained. IMPRESSION: Right A2 segment occlusion. Mild to moderate left post communicating P2 aspirate No acute arterial abnormality of the neck. Approximately 55% left and 20% right ICA stenosis. Findings were discussed with Dr. SHERIF ARGUELLO at 8:56 pm on 03/10/2022. Interpreted by: Ezequiel Aponte Preliminary Report By: Ezequiel Aponte Electronically signed By Ezequiel Aponte Dictated Date: 03/10/2022 8:47:00 PM Prelim Date: 03/10/2022 9:00:17 PM Sign Date: 03/10/2022 9:00:17 PM Ordering Provider: [facility]07-19-2022 Note ORIGINAL EXAMINATION: CT OF THE HEAD WITHOUT CONTRAST 03/10/2022 8:15 pm TECHNIQUE: CT of the head was performed without the administration of intravenous contrast. Automated exposure control, iterative reconstruction, and/or weight based adjustment of the mA/kV was utilized to reduce the radiation dose to as low as reasonably achievable. COMPARISON: None. HISTORY: ORDERING SYSTEM PROVIDED HISTORY: Reason for Exam: CHANGE IN MENTAL STATUS, WEAKNESS, APHASIA, RT SIDED WEAKNESS change in mental status/weakness/aphasia FINDINGS: Motion artifacts obscure some details, and the patient was reimaged. BRAIN/VENTRICLES: No evidence of acute intracranial hemorrhage, mass effect, midline shift, hydrocephalus, or acute large territorial infarction is identified. Patchy white matter hypodensities are nonspecific but statistically most consistent with moderate chronic microvascular angiopathy. The ventricles are mildly enlarged with commensurate enlargement of the sulci most consistent with mild age-related volume loss. Carotid siphon calcifications are present. ORBITS: The visualized portion of the orbits demonstrate no acute abnormality. SINUSES: Right maxillary sinus retention cyst. Remaining imaged paranasal sinuses and mastoid air cells are clear. SOFT TISSUES/SKULL: No acute abnormality of the visualized skull or soft tissues. IMPRESSION: No acute intracranial abnormality. Chronic microvascular angiopathy and volume loss. Interpreted by: Ezequiel Aponte Preliminary Report By: Ezequiel Aponte Electronically signed By Ezequiel Aponte Dictated Date: 03/10/2022 8:44:42 PM Prelim Date: 03/10/2022 8:46:52 PM Sign Date: 03/10/2022 8:46:52 PM Ordering Provider: [facility]07-19-2022 Note ORIGINAL EXAMINATION: CTA OF THE HEAD WITH CONTRAST; CTA OF THE NECK 03/10/2022 8:23 pm; 03/10/2022 8:41 pm: TECHNIQUE: CTA of the head/brain was performed with the administration of intravenous contrast. Multiplanar reformatted images are provided for review. MIP images are provided for review. Automated exposure control, iterative reconstruction, and/or weight based adjustment of the mA/kV was utilized to reduce the radiation dose to as low as reasonably achievable.; CTA of the neck was performed with the administration of intravenous contrast. Multiplanar reformatted images are provided for review. MIP images are provided for review. Stenosis of the internal carotid arteries measured using NASCET criteria. Automated exposure control, iterative reconstruction, and/or weight based adjustment of the mA/kV was utilized to reduce the radiation dose to as low as reasonably achievable. COMPARISON: None. HISTORY: ORDERING SYSTEM PROVIDED HISTORY: Reason for Exam: STROKE, CHANGE IN MENTAL STATUS, WEAKNESS, APHASIA, RT SIDED WEAKNESS stroke; ORDERING SYSTEM PROVIDED HISTORY: Reason for Exam: STROKE, CHANGE IN MENTAL STATUS, WEAKNESS, APHASIA, RT SIDED WEAKNESS Stroke, emergency patient FINDINGS: Venous contamination obscures some details. CTA NECK: AORTIC ARCH/ARCH VESSELS: No dissection or arterial injury. No significant stenosis of the brachiocephalic or subclavian arteries. CAROTID ARTERIES: Approximately 55% left and 20% right ICA stenosis secondary to mixed plaque. No dissection or arterial injury. Retropharyngeal course of the right ICA and left ECA. VERTEBRAL ARTERIES: Left dominant. No dissection, arterial injury, or significant stenosis. SOFT TISSUES: No focal consolidation in the imaged lungs. BONES: No acute osseous abnormality. CTA HEAD: ANTERIOR CIRCULATION: The right post communicating A2 segment is occluded. Carotid siphon calcifications result in at most mild ICA stenosis bilaterally. Otherwise no significant stenosis of the intracranial internal carotid, left anterior cerebral, or either middle cerebral arteries. No aneurysm. There is an ACOM. POSTERIOR CIRCULATION: Mild to moderate left post communicating P2 segment stenosis. No significant stenosis of the vertebral, basilar, or right posterior cerebral arteries. No aneurysm. The origins of the PICA-AICA complex and SCAs appear normal. A robust right PCOM is associated with a hypoplastic right P1 segment. The left PCOM is small. OTHER: No dural venous sinus thrombosis on this non-dedicated study. BRAIN: No mass effect or midline shift. No extra-axial fluid collection. The castaneda-white differentiation is maintained. IMPRESSION: Right A2 segment occlusion. Mild to moderate left post communicating P2 aspirate No acute arterial abnormality of the neck. Approximately 55% left and 20% right ICA stenosis. Findings were discussed with Dr. SHERIF ARGUELLO at 8:56 pm on 03/10/2022. Interpreted by: Ezequiel Aponte Preliminary Report By: Ezequiel Aponte Electronically signed By Ezequiel Aponte Dictated Date: 03/10/2022 8:47:00 PM Prelim Date: 03/10/2022 9:00:17 PM Sign Date: 03/10/2022 9:00:17 PM Ordering Provider: [facility]07-19-2022 Note ORIGINAL EXAMINATION: CTA OF THE HEAD WITH CONTRAST; CTA OF THE NECK 03/10/2022 8:23 pm; 03/10/2022 8:41 pm: TECHNIQUE: CTA of the head/brain was performed with the administration of intravenous contrast. Multiplanar reformatted images are provided for review. MIP images are provided for review. Automated exposure control, iterative reconstruction, and/or weight based adjustment of the mA/kV was utilized to reduce the radiation dose to as low as reasonably achievable.; CTA of the neck was performed with the administration of intravenous contrast. Multiplanar reformatted images are provided for review. MIP images are provided for review. Stenosis of the internal carotid arteries measured using NASCET criteria. Automated exposure control, iterative reconstruction, and/or weight based adjustment of the mA/kV was utilized to reduce the radiation dose to as low as reasonably achievable. COMPARISON: None. HISTORY: ORDERING SYSTEM PROVIDED HISTORY: Reason for Exam: STROKE, CHANGE IN MENTAL STATUS, WEAKNESS, APHASIA, RT SIDED WEAKNESS stroke; ORDERING SYSTEM PROVIDED HISTORY: Reason for Exam: STROKE, CHANGE IN MENTAL STATUS, WEAKNESS, APHASIA, RT SIDED WEAKNESS Stroke, emergency patient FINDINGS: Venous contamination obscures some details. CTA NECK: AORTIC ARCH/ARCH VESSELS: No dissection or arterial injury. No significant stenosis of the brachiocephalic or subclavian arteries. CAROTID ARTERIES: Approximately 55% left and 20% right ICA stenosis secondary to mixed plaque. No dissection or arterial injury. Retropharyngeal course of the right ICA and left ECA. VERTEBRAL ARTERIES: Left dominant. No dissection, arterial injury, or significant stenosis. SOFT TISSUES: No focal consolidation in the imaged lungs. BONES: No acute osseous abnormality. CTA HEAD: ANTERIOR CIRCULATION: The right post communicating A2 segment is occluded. Carotid siphon calcifications result in at most mild ICA stenosis bilaterally. Otherwise no significant stenosis of the intracranial internal carotid, left anterior cerebral, or either middle cerebral arteries. No aneurysm. There is an ACOM. POSTERIOR CIRCULATION: Mild to moderate left post communicating P2 segment stenosis. No significant stenosis of the vertebral, basilar, or right posterior cerebral arteries. No aneurysm. The origins of the PICA-AICA complex and SCAs appear normal. A robust right PCOM is associated with a hypoplastic right P1 segment. The left PCOM is small. OTHER: No dural venous sinus thrombosis on this non-dedicated study. BRAIN: No mass effect or midline shift. No extra-axial fluid collection. The castaneda-white differentiation is maintained. IMPRESSION: Right A2 segment occlusion. Mild to moderate left post communicating P2 aspirate No acute arterial abnormality of the neck. Approximately 55% left and 20% right ICA stenosis. Findings were discussed with Dr. SHERIF ARGUELLO at 8:56 pm on 03/10/2022. Interpreted by: Ezequiel Aponte Preliminary Report By: Ezequiel Aponte Electronically signed By Ezequiel Aponte Dictated Date: 03/10/2022 8:47:00 PM Prelim Date: 03/10/2022 9:00:17 PM Sign Date: 03/10/2022 9:00:17 PM Ordering Provider: [facility] [id number] Note ORIGINAL EXAMINATION: CT OF THE HEAD WITHOUT CONTRAST 03/10/2022 8:15 pm TECHNIQUE: CT of the head was performed without the administration of intravenous contrast. Automated exposure control, iterative reconstruction, and/or weight based adjustment of the mA/kV was utilized to reduce the radiation dose to as low as reasonably achievable. COMPARISON: None. HISTORY: ORDERING SYSTEM PROVIDED HISTORY: Reason for Exam: CHANGE IN MENTAL STATUS, WEAKNESS, APHASIA, RT SIDED WEAKNESS change in mental status/weakness/aphasia FINDINGS: Motion artifacts obscure some details, and the patient was reimaged. BRAIN/VENTRICLES: No evidence of acute intracranial hemorrhage, mass effect, midline shift, hydrocephalus, or acute large territorial infarction is identified. Patchy white matter hypodensities are nonspecific but statistically most consistent with moderate chronic microvascular angiopathy. The ventricles are mildly enlarged with commensurate enlargement of the sulci most consistent with mild age-related volume loss. Carotid siphon calcifications are present. ORBITS: The visualized portion of the orbits demonstrate no acute abnormality. SINUSES: Right maxillary sinus retention cyst. Remaining imaged paranasal sinuses and mastoid air cells are clear. SOFT TISSUES/SKULL: No acute abnormality of the visualized skull or soft tissues. IMPRESSION: No acute intracranial abnormality. Chronic microvascular angiopathy and volume loss. Interpreted by: Ezequiel Aponte Preliminary Report By: Ezequiel Aponte Electronically signed By Ezequiel Aponte Dictated Date: 03/10/2022 8:44:42 PM Prelim Date: 03/10/2022 8:46:52 PM Sign Date: 03/10/2022 8:46:52 PM Ordering Provider: [facility]07-19-2022 Note ORIGINAL EXAMINATION: ONE XRAY VIEW OF THE CHEST 03/10/2022 7:18 pm COMPARISON: None. HISTORY: ORDERING SYSTEM PROVIDED HISTORY: Reason for Exam: Chest pain/shortness of breath FINDINGS: Mediastinal contours are accentuated secondary to patient rotation and portable technique. No focal consolidation. No visible pneumothorax or pleural effusion. Chronic appearing deformities of the left ribs. IMPRESSION: No acute cardiopulmonary findings. Interpreted by: Semaj Aponte Preliminary Report By: Semaj Aponte Electronically signed By Semaj Aponte Dictated Date: 03/10/2022 7:34:57 PM Prelim Date: 03/10/2022 7:37:15 PM Sign Date: 03/10/2022 7:37:15 PM Ordering Provider: [facility]07-19-2022 Note ORIGINAL EXAMINATION: ONE XRAY VIEW OF THE CHEST 03/10/2022 7:18 pm COMPARISON: None. HISTORY: ORDERING SYSTEM PROVIDED HISTORY: Reason for Exam: Chest pain/shortness of breath FINDINGS: Mediastinal contours are accentuated secondary to patient rotation and portable technique. No focal consolidation. No visible pneumothorax or pleural effusion. Chronic appearing deformities of the left ribs. IMPRESSION: No acute cardiopulmonary findings. Interpreted by: Semaj Aponte Preliminary Report By: Semaj Aponte Electronically signed By Semajsa Aponte Dictated Date: 03/10/2022 7:34:57 PM Prelim Date: 03/10/2022 7:37:15 PM Sign Date: 03/10/2022 7:37:15 PM Ordering Provider: [facility]07-19-2022 Evaluation + Plan note Extracted from: Title:History and Physical Author:Kristy Esquivel Medical Student Date:03/10/22 1. CVA/TIA 2. Alcohol abuse 3. History of HTN 4. History of HLD Pt is a 71 year old male with a PMHx of HTN and HLD who presents to the ED for evaluation of right sided upper and lower extremity weakness and slurred speech. Pt was found to be Hypertensive, right facial droop, dysarthria, decreased strength and sensation to RUE and RLE noted on exam. Pt was last known to be normal last night before bed. CT head/brain was neg, no intracranial bleed. However, pt is not a candidate for TPA. CT angiography head and neck showed right A2 segment occlusion. Mild to moderate left post communicating P2 aspirate, no acute arterial abnormality of the neck. Approximately 55% left and 20% right ICA stenosis. CVA/TIA likely ischemic stroke -pt noted to have right sided weakness, right sided facial droop and slurred speech -Pt has a h/o HTN and HLD and is non compliant with meds, BP on arrival 185/106 - CT head/brain was neg, no intracranial bleed. -CT angiography head and neck showed right A2 segment occlusion. -EKG showed sinus tachycardia -will obtain echo bubble and MRI brain - ASA 81 mg and Atorvastatin 40 mg -neuro consult -PT/OT, bedside swallowing Alcohol abuse - drinks 12 packs of beer daily, last drink 2 days ago -No N/V, pt calm on exam, no tremors noted - will continue to monitor History of HTN -will keep BP under 185/100 -Labetalol PRN History of HLD -will obtain lipid panel -Atorvastatin 40 mg FULL CODE Addendum by TRINA QUINTANILLA MD on March 12, 2022 09:21:42 EDT MEDICAL TEACHING SERVICE ATTENDING PHYSICIAN NOTE This note was transcribed via voice recognition software and may contain typographical errors. I was present for, and personally supervised, the delong components of the patient's evaluation and management by the [facility] house staff today. I have examined the patient and reviewed all diagnostic data. I have reviewed the note of the resident documenting the interval history obtained, examination performed, and diagnostic testing results compiled by him/her. Additional comments, if any:Thank you for above documentation and care. I have personally seen and examined the patient today. Patient appears to have 4+ strength in the right upper and lower extremity. Right facial droop on the lower face persists. He has trouble with finger to nose testing as well as heel-leon testing. Awaiting MRI. Continuing asa, statin, plavix. Out of initial 24h stroke window for permissive HTN, can proceed with BP control. [facility] Evaluation noteNo assessment information available [facility] Work Phone: Hospital course Narrative No data available for this section [facility] Reason for referral (narrative)No reason for referral [facility] Work [facility] Summary Purpose Family History No Family History Records FoundNo Family History Records FoundNo Family History Records Found Advance Directives No Advanced Directives Records FoundNo Advanced Directives Records FoundNo Advanced Directives Records Found Chief Complaint and Reason for Visit Chief Complaint Admit Date LABSPEC December 02, 2024 8:5 2am Chief Complaint Admit Date LABSPEC December 02, 2024 8:5 2am LOOSE STOOL AND L LOWER ABD PAIN December 9:46am 1 M FU January 29, 2025 9:59a m Reason for Visit Admit Date Diarrhea January 01, 2025 9:46a m Additional Source Comments Care Team (unrecognized sect ion and content) Care Team Personnel Name: PHYSICIAN, NONE Position: Physician Member Role: Primary Care Physician Care Team Related Persons Name: YVONNE SPAIN (unrecognized sect ion and content) No Status Records FoundNo Status Records FoundNo Status Records Found INFORMATION SOURCE (unrecogn ized section and content) DATE CREATED AUTHOR 04/23/2022 [facility] ([place]) DATE CREATED AUTHOR AUTHOR'S ORGANIZ ATION 09/05/2023 [facility] DATE CREATED AUTHOR AUTHOR'S ORGANIZ ATION 01/29/2025 [facility] Care Teams (unrecognized sec tion and content) Team Status: Active Member Role Status Dates Dr. Levon Duke MD Primary Care Provider Active Team Status: Inactive Member Role Status Dates Dr. Levon Duke MD Primary Care Provider Active Start: December 02, 2024 End: December 02, 2024 Geetha Lara NP, [facility] [employer]-[facility] Attending Provider Active S tart: December 02, 2024 End: December 02, 2024 Team Status: Inactive Member Role Status Dates Dr. Levon Duke MD Primary Care Provider Active Start: January 01, 2025 End: January 01, 2025 Dr. Levon Duke MD Referring Provider Active Start: January 01, 2025 End: January 01, 2025 NAYELI Joseph Attending Provider Active S tart: January 01, 2025 End: January 01, 2025 Team Status: Inactive Member Role Status Dates Dr. Levon Duke MD Primary Care Provider Active Start: January 29, 2025 End: January 29, 2025 Dr. Levon Duke MD Referring Provider Active Start: January 29, 2025 End: January 29, 2025 NAYELI Joseph Attending Provider Active S tart: January 29, 2025 End: January 29, 2025 Goals (unrecognized section and content) Goals may be documented in a n alternate section FOR RECORDS PERTAINING TO PATIENTS WHO ARE OR HAVE BEEN ENROLLED IN A CHEMICAL DEPENDENCY/SUBSTANCEABUSE PROGRAM, SOME INFORMATION MAY BE OMITTED. This clinical summary was aggregated from multiple sources. Caution should be exercised in using it in the provision of clinical care. This summary normalizes information from multiple sources, and as a consequence, information in this document may materially change the coding, format and clinical context of patient data. In addition, data may be omitted in some cases. CLINICAL DECISIONS SHOULD BE BASED ON THE PRIMARY CLINICAL RECORDS. [employer] provides no warranty or guarantee of the accuracy or completeness of information in this document.
[2025-08-03 16:20] LABS: Anion Gap 10 (5-15); BUN 10 mg/dL (4-19); BUN/Creat Ratio 11.6 RATIO (10-20); Calcium,Total 9.6 mg/dL (7.6-11.0); Carbon Dioxide 26.9 mmol/L (21.0-32.0); Chloride 102 mmol/L (98-108); Estimated Creatinine Clearance 83.39 ml/min (50-250); Glucose 107 mg/dL (70-99); Potassium 4.2 mmol/L (3.3-5.1); Troponin T High Sensitivity 32 ng/L (<=22)
--- NOTE | 2025-08-03 16:20 | RAD_ITS ---
EXAM: XR Chest, 1 View CLINICAL INDICATION: NEURO DEFICIT, ACUTE, STROKE SUSPECTED TECHNIQUE: Frontal view of the chest. COMPARISON: No relevant prior studies available. FINDINGS: LUNGS AND PLEURAL SPACES: See below. HEART: Cardiomegaly with mild congestion. MEDIASTINUM: Unremarkable. Normal mediastinal contour. BONES/JOINTS: Unremarkable. No acute fracture. RAD/Chest 1 View IMPRESSION: Cardiomegaly with mild congestion. Reading Location: [id number]
[2025-08-03 16:53] LABS: Prothrombin Time (Protime)PT. 13.2 SECONDS (11.7-14.9)
[2025-08-03 16:54] LABS: Partial Thromboplast Time 26.1 Seconds (24.1-36.2)
[2025-08-03 17:54] LABS: Troponin T High Sens 2 HR 44 ng/L (<=22)
--- NOTE | 2025-08-03 18:05 | HP.PCM.HOS_ITS ---
[facility] - General General Date of Admission: 08/03/25 Date of Service: 08/03/25 Chief Complaint: difficulty speaking HPI Narrative MONICA SPAIN, is a 75 M with a PMH as outlined who was admitted via the ED with a complaint of difficulty speaking. He has a history of stroke with residual RUE weakness, and said he had difficulty speaking after lunch today. His symptoms lasted for a few minutes and subsequently stopped and his speech reverted to normal. He denied any numbness or weakness in any extremity and denied any headache. He did have residual right-sided weakness from a previous stroke. He denied any chest pain or shortness of breath, palpitations, nausea or vomiting or any other symptoms. Review of systems otherwise negative. Vitals in the ED at time of review were blood pressure 127/82, pulse rate of 97, respiratory rate of 20 and she was saturating at 98% on room air. CBC showed hemoglobin of 15.2, WBC of 9.5 and platelets of 331. INR was 1. Chemistry shows sodium of 139 with potassium of 4.2 and bicarb of 26.9. Creatinine was 0.84. Initial troponin was 32 and trended up to 44. Chest x-ray showed cardiomegaly with mild venous congestion. CT of the brain showed no acute intracranial abnormality. CTA of the head and neck showed atheromatous plaque at the carotid bulbs resulting in moderate more than 50% stenosis of the proximal left ICA and more mild less than 50% stenosis of the proximal right ICA. He has been admitted to rule out a stroke and also to manage for the elevated troponins. [facility] Medical History Alcohol abuse, in remission Essential (primary) hypertension Anxiety disorder, unspecified Weakness Unspecified diastolic (congestive) heart failure Epilepsy, unspecified, not intractable, without status epilepticus Vitamin D deficiency Sciatica, left side Major depressive disorder, single episode, unspecified Hemiplegia and hemiparesis following cerebral infarction affecting right dominant side Cerebral infarction, unspecified Home Medications ?Medication ?Instructions ?Recorded ?Last Taken ?Type albuterol sulfate 2.5 mg/3 mL 2.5 mg inhalation TID MI N 07/02/24 Unknown History (0.083 %) solution for nebulization shortness of breat h or wheezing amlodipine 5 mg tablet 10 mg PO DAILY 07/02/24 Unkn own History aspirin 81 mg capsule 81 mg PO DAILY 07/02/24 Unkn own History atorvastatin 80 mg tablet 80 mg PO QHS 07/02/24 Unknow n History baclofen 10 mg tablet 10 mg PO BID 07/02/24 Unknow n History baclofen 5 mg tablet 5 mg PO DAILY 07/02/24 Unkno wn History furosemide 40 mg tablet (Lasix) 40 mg PO DAILY 4 Unknown History ipratropium 20 mcg-albuterol 100 1 puff inhalation Q4H PRN 07/02/24 Unknown History mcg/actuation mist for inhalation shortness of breath or wheezing (Combivent Respimat) losartan 100 mg tablet 100 mg PO DAILY 07/02/24 Unk nown History metoprolol succinate 25 mg 25 mg PO QHS 07/02/24 Unkno wn History tablet,extended release 24 hr potassium chloride 20 mEq 40 meq PO DAILY 07/02/24 Unk nown History tablet,extended release psyllium 1 packet PO DAILY 07/02/24 U nknown History thiamine HCl (vitamin B1) 100 mg 100 mg PO DAILY 07/02 Unknown History tablet trazodone 50 mg tablet 25 mg PO QHS 07/02/24 Unknow n History venlafaxine 37.5 mg 37.5 mg PO DAILY 07/02/24 Un known History capsule,extended release 24 hr (Effexor XR) venlafaxine 75 mg capsule,extended 75 mg PO DAILY 06/23 Unknown History release 24 hr (Effexor XR) polyethylene glycol 3350 17 17 g PO DAILY #119 grams 1 09/06/23 Unknown Rx gram/dose oral powder (Miralax) cholestyramine 4 gram oral powder 4 g PO QDAY #239.4 g bandar 01/29/25 Unknown Rx (Cholestyramine Light) pantoprazole 40 mg tablet,delayed 40 mg PO DAILY #90 t abs 01/29/25 Unknown Rx release calcipotriene 0.005 % topical cream applic topical 08/16 Unknown History dupilumab 300 mg/2 mL subcutaneous mg subcut 08/03/25 Unknown History syringe (Dupixent) melatonin 5 mg capsule mg 08/03/25 Unknown History Allergy/AdvReac Type Severity Reaction Status Date / Time No Known Allergies Allergy Verified 08/03/25 14:38 Social History Smoking Status: Former smoker ROS Constitutional Constitutional: Reports fatigue, malaise and weakness; Denies anorexia, chills or fever(s) Eyes Eyes: Denies change in vision, double vision or loss of vision ENT HEENT: Denies dysphagia, headache(s) or sore throat Cardiovascular Cardiovascular: Denies chest pain, dyspnea on exertion, edema, lightheadedness, orthopnea, palpitations, rapid heart rate or syncope Respiratory/Chest Respiratory/Chest: Denies cough, dyspnea, productive cough, shortness of breath at rest or shortness of breath with exertion Gastrointestinal Gastrointestinal: Denies abdominal pain, diarrhea, dyspepsia, nausea or vomiting Genitourinary Genitourinary: Denies dysuria Neurologic Neurologic: Denies confusion, dizziness, focal weakness, headache(s) or numbness Psychiatric Psychiatric: Denies anxiety or depression Vital Signs Vital Signs Vital Signs: 08/03/25 14:38 08/03/25 15:17 08/03/25 15:17 Temperature 98.1 F Temperature Source Oral Pulse Rate 108 H 95 Respiratory Rate 18 20 H Blood Pressure 142/71 H 116/77 Blood Pressure Mean 94 90 Pulse Ox 98 95 97 Oxygen Delivery Method Room Air Room Air 08/03/25 15:37 08/03/25 16:00 08/03/25 17:00 Temperature Temperature Source Pulse Rate 96 88 102 H Respiratory Rate 20 H Blood Pressure 132/64 H 123/61 H 124/63 H Blood Pressure Mean 86 81 83 Pulse Ox 96 97 98 Oxygen Delivery Method Room Air Room Air Room Air 08/03/25 18:00 Temperature Temperature Source Pulse Rate 97 Respiratory Rate 20 H Blood Pressure 127/82 H Blood Pressure Mean 97 Pulse Ox 98 Oxygen Delivery Method Room Air Weight Weight: 217 lb 13.067 oz Body Mass Index (BMI) 36.2 Physical Exam Const alert, oriented x3 and no apparent distress Constitutional Narrative: frail General Appearance: cooperative HEENT normocephalic, head/scalp atraumatic, moist oral mucous membranes and oropharynx normal Mouth: oral and palatal mucosa normal Eyes EOMs intact bilaterally and conjunctivae normal Neck supple and no JVD Resp normal respiratory effort, no use of accessory muscles and clear to auscultation bilaterally Cardio regular rate, regular rhythm, S1 normal heart sound, S2 normal heart sound and no murmurs GI normal to inspection, nondistended, normoactive bowel sounds, soft to palpation and non-tender Extremity normal to inspection, full ROM and no clubbing, cyanosis or edema Skin Skin Narrative: Has erythematous maculopapular rash over his upper extremities for which he follows with a vice president. Neuro oriented x3 and moves all extremities Neuro Narrative: has mildly reduced power of 4/5 in RUE; no peripheral neuropathy Sensorium / Orientation: awake and alert Motor Exam: strength 5/5 throughout Psych affect normal Results Lab / Micro Data 08/03/25 15:30 08/03/25 15:30 Labs: Laboratory Results - last 24 hr 08/03/25 15:30: WBC 9.5, RBC 4.80, Hgb 15.2, Hct 42.5, MCV 88.5, MCH 31.7, MCHC 35.8, RDW Std Deviation 37.6, RDW Coeff of Sangeeta 11.8, Plt Count 331, MPV 8.6, Immature Gran % (Auto) 0.100, Neut % (Auto) 70.9 H, Lymph % (Auto) 12.9 L, Bond % (Auto) 11.5 H, Eos % (Auto) 3.9, Baso % (Auto) 0.7, Absolute Neuts (auto) 6.7, Absolute Lymphs (auto) 1.22, Nucleated RBC % 0, PT 13.2, INR 1.0, APTT 26.1, Sodium 139, Potassium 4.2, Chloride 102, Carbon Dioxide 26.9, Anion Gap 10, BUN 10, Creatinine 0.84, Estim Creat Clear Calc 83.39, Est GFR (MDRD) Non-Af 91, BUN/Creatinine Ratio 11.6, Glucose 107 H, Calcium 9.6, Troponin T High Sens 32 H 08/03/25 17:23: Troponin T Hi Sens 2 Hr 44 H Imaging Radiology Impression Brain CT 08/03/25 15:17 IMPRESSION: 1. No acute intracranial abnormality. 2. Age-related senescent changes. Reading Location: [facility] Head/Neck CTA 08/03/25 15:17 IMPRESSION: Patient motion artifact limits evaluation of the intracranial vasculature. Subject to this limitation, no evidence for intracranial large vessel occlusion or high-grade stenosis. Atheromatous plaque at the carotid bulbs resulting in moderate >50% stenosis of the proximal left ICA, and more mild <50% stenosis of the proximal right ICA. Stroke Alert: The critical findings above were relayed directly by me by telephone to Alonso Albarran on 08/03/2025 at 4:06 pm FOAM CHARGER with readback verification. Reading Location: [id number] Chest X-Ray 08/03/25 16:20 IMPRESSION: Cardiomegaly with mild congestion. Reading Location: [id number] Assessment & Plan Assessment/Plan (1) TIA (transient ischemic attack): (2) Elevated troponin: PLAN: Plan #Expressive aphasia * Resolved. Was admitted with a complaint of difficulty with speaking with lasted for few minutes. Last normal was around noon after lunch. His symptoms resolved after his aide helped him to go to lie down in bed and after a few minutes his speech was back to normal. * He does have a history of stroke with chronic right-sided weakness. * CT of the brain did not show any acute intracranial pathology but CTA head and neck showed atheromatous plaque at the carotid bulbs resulting in moderate more than 50% stenosis of the proximal left ICA and more mild less than 50% stenosis of the proximal right ICA. * Chest x-ray showed mild cardiomegaly with mild venous congestion * Already on aspirin and high intensity statin. Will continue these. Will get carotid ultrasound and also get MRI of the brain. * Consults neurology. Monitor NIH stroke scale. Hold all BP meds to allow for permissive hypertension in case of a stroke. * Consult PT OT. Fall precautions. * Get 2D echo * #Elevated troponins: * Initial troponin was 32 and trended up to 44. Denies any chest pain. * Most recent echo is from July 06, 2024 showed EF of 60% and no acute wall motion abnormalities and no diastolic dysfunction. * get repeat echo #Carotid stenosis: CTA head and neck as above. Will get carotid ultrasound to delineate the carotid stenosis better. #Hypertension: Hold losartan and metoprolol to allow for permissive hypertension. IV labetalol as needed on account of stroke #Depression: On venlafaxine #GERD: On PPI #DVT prophylax: SCDs CODE STATUS: full code * Patient counseled extensively about different types of CODE STATUS including full code, DNR CCA and DNR CCA. * Patient elects to be full code. States he used to have DNR CCA. + But has changed his mind and now wants to be full code and wants CPR and intubation if needed. * Total vzce-sy-oenn time 16 minutes. Charges/Coding Visit Charges Inpatient E&M: 63109 Init Hosp L2 Procedures Hospitalists Procedures: 27546 Advncd Care Plan 30 Min
--- OUTSIDE RECORDS SUMMARY | 2025-08-03 18:32 | XMS RPT_ITS | CCD ---
Author Organization [facility] Care Team Providers Care [employer] Dean Name Role Phone PHYSICIAN, NONE Primary Care Physician Unavailab le GEETHA LARA Referring Unavailable CALEB ACKERMAN Attending Unavailable Leilani PRITCHETT, Dr. Dos Santos Primary Care Provider [phone] Jama LICENSING ANALYST-C, Geetha Attending Provider Dr. Levon Duke MD Referring Provider Bryan LICENSING ANALYST-C, Rosalia Attending Provider Rosalia Adams Attending Unavailable Levon Duke Primary Care Unavailable Levon Duke Referring Unavailable Geetha Morrow Attending Unavailabl Levon Carrillo Primary Care Unavailable Epi Tirado Attending Unavailable Tom Escobedo Consulting Unavailable Tom Escobedo Admitting Unavailable Tom Escobedo Referring Unavailable eLvon Duke Primary Care Unavailable Epi Tirado Consulting [...] # 30 tab(s), 3 Refill(s), Pharmacy: [facility] #[id number], 172.7, cm, 03/11/22 9:45:00 EDT, Height, kg, [...] qDay, # 30 tab(s), 2 Refill(s), Pharmacy: [facility] #[id number], 172.7, cm, 03/11/22 9:45:00 EDT, Height, kg, [...] BID, # 60 tab(s), 1 Refill(s), Pharmacy: [facility] #[id number], 177.8, cm, 03/27/22 21:14:00 EDT, Height Start [...] qDay, # 30 tab(s), 2 Refill(s), Pharmacy: [facility] #[id number], 172.7, cm, 03/11/22 9:45:00 EDT, Height, kg, [...] qHS Start Date: 03/27/22 Status: Ordered nystatin 513489 unt/ml oral suspension (2 sources) Polyene Antifungal Start: 03-27-2022 take 1 dose by mouth four times daily nystatin 100,000 units/mL oral suspension Dose : 500,000 unit(s) = 5 mL, Oral, QID Start Date: 03/27/22 Status: Ordered polyethylene glycol 3350 79893 mg powder for oral solution (4 sources) [...] 1:00am Start: 07-02-2024 take 1 capsule by [facility] once daily Venlafaxine (Effexor Xr) 75 mg [...] source) Long-term current use of aspirin; Translations: [longterm (current) use of aspirin] Episodic Other and [...] Visit Repor ton 01-29-2025 Gastroenterology Visit Report [facility] [address] [place] [address] OFFICE VISIT Date of Service: 01/29/25 MR#: [id number] Acct: [id number] Name: MONICA SPAIN Rep #: [id number] : 1950 Provider: NAYELI canseco Age/Sex: 74/M Location: [facility] Status: Signed Intake Vital Signs 07/05/24 [...] abdominal pain, nausea, vomitting at this time. [facility] Medical History Alcohol abuse, in remission [...] for FU. 01.01.25 OV established with [facility] regarding concerns of postprandial diarrhea with [...] cramping, d (more content not included)... Normal [facility] Gastroenterology Visit Repor ton 01-01-2025 Gastroenterology Visit Report [facility] [address] [place] [address] OFFICE VISIT Date of Service: 01/01/25 MR#: [id number] Acct: [id number] Name: MONICA SPAIN Rep #: [id number] : 1950 Provider: NAYELI canseco Age/Sex: 74/M [...] you fallen in the past year?: No [facility] Medical History Alcohol abuse, in remission [...] the office today for establishment with [facility] regarding concerns of postprandial diarrhea with [...] Const General: (more content not included)... Normal [facility] Ova and Parasites 8623on OP Order Date: 12/01/24 Order Info: [id number] - OP OVA AND PARASITES EXAM, ROUTINE These results were obtained using wet preparation(s) and trichrome stained smear. This test does not include testing for Crytosporidium parvum, Cyclospora, or Microsporidia. One negative specimen does not rule out the possibility of a parasitic infection. TESTING PERFORMED AT [facility]. ORIGINAL REPORT ON FILE IN LAB CONTAINS ADDITIONAL TEST SITE INFORMATION. Ova/Parasite Exam NO OVA, CYSTS, OR PARASITES FOUND. Normal [facility] Comment on above: Performed By: #### L 501.5200 #### [facility] [address] [place] [address]. [place], [place], [address] CDIFF (PCR)on 12-02-2024 CDIFF Order Date: 12/01/24 Order Info: [id number] - C DIFF Pending 027 027 [id number] Presumptive Negative *for epidemiolologic???use C. Diff PCR Negative- No toxigenic C. Diff Detected Normal [facility] Comment on above: Performed By: #### L 501.5200 #### [facility] [address] [place] [address]. [place], [place], [address] C. difficile DNA ALEIDA+probe Q l (Unsp spec)Ordered By: Geetha Lara on 12-01-2024 Clostridioides difficile (PCR) [facility] Clostridium difficile detect ion by polymerase chain reactionOrdered By: Geetha Lara on 12-01-2024 C. difficile DNA ALEIDA+probe Ql (Unsp spec) [facility] Ova and parasitesOrdered By: Geetha Lara on 12-01-2024 Ova and Parasites [facility] Culture, Blood (WB)on 2023 CUB Blood cultures x2, from two different sites No growth in 5 days. Normal [facility] Comment on above: Performed By: #### L 501.5200 #### [facility] [address] [place], [address] CUB Blood cultures x2, from two different sites No growth in 5 days. Normal [facility] Comment on above: Performed By: #### L 501.9520 #### [facility] [address] [place], [address] Basic Metabolic Profile (BMP )on 07-07-2024 BUN/CRE 30.5 RATIO High 10-20 [facility] Comment on above: Performed By: #### L 500.2500 #### [facility] [address] [place], [address] CA,Total 9.0 mg/dL Normal 8.5-10.1 [facility] Comment on above: Performed By: #### L 500.2500 #### [facility] [address] [place], [address] Chloride [Moles/Vol] 102 mmol/L Normal 98-107 [facility] Comment on above: Performed By: #### L 500.2500 #### [facility] [address] [place], [address] CO2 [Moles/Vol] 30.0 mmol/L Normal 21.0-32.0 [facility] Comment on above: Performed By: #### L 500.2500 #### [facility] [address] [place], [address] Creatinine [Mass/Vol] 0.82 mg/dL Normal 0.70-1.30 [facility] Comment on above: Result Comment: The validity of the calculated GFR GFRAA in patients over 70 years has not been determined. Clinical correlation is essential. Performed By: #### L 500.2500 #### [facility] [address] [place], [address] ECRCL 93.98 ml/min Normal [facility] Comment on above: Performed By: #### L 500.2500 #### [facility] [address] [place], [address] EST GFR - AA 119 mL/min Normal >60 [facility] Comment on above: Result Comment: Afri can Trinidadian GFR Calc Performed By: #### L 500.2500 #### [facility] [address] [place], [address] GAP 4 Low 5-15 [facility] Comment on above: Performed By: #### L 500.2500 #### [facility] [address] [place], [address] GFR/1.73 sq M.predicted among non-blacks MDRD (S/P/Bld) [Vol rate/Area] 98 mL/min/{1.73_m2} Normal >60 [facility] Comment on above: Result Comment: Non- GFR Calc Performed By: #### L 500.2500 #### [facility] [address] [place], [address] Glucose [Mass/Vol] 177 mg/dL High 74-106 [facility] Comment on above: Result Comment: Fast ing Glucose result greater than or equal to 126 mg/dL suggests DIABETES MELLITUS per A.D.A. criteria. Performed By: #### L 500.2500 #### [facility] [address] [place], [address] Potassium [Moles/Vol] 4.3 mmol/L Normal 3.5-5.1 [facility] Comment on above: Performed By: #### L 500.2500 #### [facility] [address] [place], [address] Sodium [Moles/Vol] 137 mmol/L Normal 136-145 [facility] Comment on above: Performed By: #### L 500.2500 #### [facility] [address] [place], [address] Urea nitrogen [Mass/Vol] 25 mg/dL High 7-18 [facility] Comment on above: Performed By: #### L 500.2500 #### [facility] [address] [place], [address] Basic Metabolic Profile (BMP )on 07-06-2024 BUN/CRE 33.8 RATIO High 10-20 [facility] Comment on above: Performed By: #### L 501.9520 #### [facility] [address] [place], [address] CA,Total 9.0 mg/dL Normal 8.5-10.1 [facility] Comment on above: Performed By: #### L 501.9520 #### [facility] [address] [place], [address] Chloride [Moles/Vol] 106 mmol/L Normal 98-107 [facility] Comment on above: Performed By: #### L 501.9520 #### [facility] [address] [place], [address] CO2 [Moles/Vol] 29.0 mmol/L Normal 21.0-32.0 [facility] Comment on above: Performed By: #### L 501.9520 #### [facility] [address] [place], [address] Creatinine [Mass/Vol] 0.77 mg/dL Normal 0.70-1.30 [facility] Comment on above: Result Comment: The validity of the calculated GFR GFRAA in patients over 70 years has not been determined. Clinical correlation is essential. Performed By: #### L 501.9520 #### [facility] [address] [place], [address] ECRCL 96.33 ml/min Normal [facility] Comment on above: Performed By: #### L 501.9520 #### [facility] [address] [place], [address] EST GFR - AA 127 mL/min Normal >60 [facility] Comment on above: Result Comment: Afri can Trinidadian GFR Calc Performed By: #### L 501.9520 #### [facility] [address] [place], [address] GAP 3 Low 5-15 [facility] Comment on above: Performed By: #### L 501.9520 #### [facility] [address] [place], [address] GFR/1.73 sq M.predicted among non-blacks MDRD (S/P/Bld) [Vol rate/Area] 105 mL/min/{1.73_m2} Normal >60 [facility] Comment on above: Result Comment: Non- GFR Calc Performed By: #### L 501.9520 #### [facility] [address] [place], [address] Glucose [Mass/Vol] 172 mg/dL High 74-106 [facility] Comment on above: Result Comment: Fast ing Glucose result greater than or equal to 126 mg/dL suggests DIABETES MELLITUS per A.D.A. criteria. Performed By: #### L 501.9520 #### [facility] [address] [place], [address] Potassium [Moles/Vol] 4.3 mmol/L Normal 3.5-5.1 [facility] Comment on above: Performed By: #### L 501.9520 #### [facility] [address] [place], [address] Sodium [Moles/Vol] 138 mmol/L Normal 136-145 [facility] Comment on above: Performed By: #### L 501.9520 #### [facility] [address] [place], [address] Urea nitrogen [Mass/Vol] 26 mg/dL High 7-18 [facility] Comment on above: Performed By: #### L 501.9520 #### [facility] [address] [place], [address] CBC W/Diff, Automatedon 11-1 -2023 Absolute Lymph 1.14 X10 3/uL Normal 0.83-4.51 [facility] Comment on above: Performed By: #### L 500.2500 #### [facility] [address] [place], [address] Absolute Neut 9.6 X10 3/uL High 2.0-7.7 [facility] Comment on above: Performed By: #### L 500.2500 #### [facility] [address] [place], [address] Basophils/100 WBC (Bld) 0.1 % Normal 0-1 [facility] Comment on above: Performed By: #### L 500.2500 #### [facility] [place], [address] Eosinophils/100 WBC (Bld) 0.0 % Normal 0-5 [facility] Comment on above: Performed By: #### L 500.2500 #### [facility] [address] [place], [address] Erythrocyte distribution width (RBC) [Ratio] 11.2 % Low 11.6-14.6 [facility] Comment on above: Performed By: #### L 500.2500 #### [facility] [address] [place], [address] Hematocrit (Bld) [Volume fraction] 38.0 % Low 40-54 [facility] Comment on above: Performed By: #### L 500.2500 #### [facility] [address] [place], [address] Hemoglobin (Bld) [Mass/Vol] 13.7 g/dL Normal 13.0-16.5 [facility] Comment on above: Performed By: #### L 500.2500 #### [facility] [address] [place], [address] IG% 0.300 Normal 0.0-0.9 [facility] Comment on above: Result Comment: IG% - Immature Granulocytes (promyelocytes, myelocytes and metamyelocytes) > 1% indicates that a LEFT SHIFT is Present. Performed By: #### L 500.2500 #### [facility] [address] [place], [address] Lymphocytes/100 WBC (Bld) 9.7 % Low 19-41 [facility] Comment on above: Performed By: #### L 500.2500 #### [facility] [address] [place], [address] MCH (RBC) [Entitic mass] 32.0 pg Normal 27.0-32.0 [facility] Comment on above: Performed By: #### L 500.2500 #### [facility] [place], [address] MCHC (RBC) [Mass/Vol] 36.1 g/dL High 32-36 [facility] Comment on above: Performed By: #### L 500.2500 #### [facility] [address] [place], [address] MCV (RBC) [Entitic vol] 88.8 fL Normal 80-94 [facility] Comment on above: Performed By: #### L 500.2500 #### [facility] [address] [place], [address] Monocytes/100 WBC (Bld) 8.5 % Normal 0-10 [facility] Comment on above: Performed By: #### L 500.2500 #### [facility] [address] [place], [address] Neutrophils/100 WBC (Bld) 81.4 % High 47-70 [facility] Comment on above: Performed By: #### L 500.2500 #### [facility] [address] [place], [address] Nucleated RBC (Bld) [#/Vol] 0 10*3/uL Normal 0-5 [facility] Comment on above: Performed By: #### L 500.2500 #### [facility] [address] [place], [address] Platelet mean volume (Bld) [Entitic vol] 9.3 fL Normal 6.2-12.0 [facility] Comment on above: Performed By: #### L 500.2500 #### [facility] [address] [place], [address] Platelets (Bld) [#/Vol] 386 10*3/uL Normal 150-450 [facility] Comment on above: Performed By: #### L 500.2500 #### [facility] [address] [place], [address] RBC (Bld) [#/Vol] 4.28 10*6/uL Low 4.6-6.2 [facility] Comment on above: Performed By: #### L 500.2500 #### [facility] [address] [place], [address] RDW SD 36.0 fl Normal 35.1-43.9 [facility] Comment on above: Performed By: #### L 500.2500 #### [facility] [address] [place], [address] WBC (Bld) [#/Vol] 11.7 10*3/uL High 4.4-11.0 [facility] Comment on above: Performed By: #### L 500.2500 #### [facility] [address] [place], [address] Absolute Lymph 1.39 X10 3/uL Normal 0.83-4.51 [facility] Comment on above: Performed By: #### L 501.9520 #### [facility] [address] [place], [address] Absolute Neut 8.4 X10 3/uL High 2.0-7.7 [facility] Comment on above: Performed By: #### L 501.9520 #### [facility] [address] [place], [address] Basophils/100 WBC (Bld) 0.1 % Normal 0-1 [facility] Comment on above: Performed By: #### L 501.9520 #### [facility] [address] [place], [address] Eosinophils/100 WBC (Bld) 0.0 % Normal 0-5 [facility] Comment on above: Performed By: #### L 501.9520 #### [facility] [address] [place], [address] Erythrocyte distribution width (RBC) [Ratio] 11.2 % Low 11.6-14.6 [facility] Comment on above: Performed By: #### L 501.95 #### [facility] [address] [place], [address] Hematocrit (Bld) [Volume fraction] 39.2 % Low 40-54 [facility] Comment on above: Performed By: #### L 501.9520 #### [facility] [address] [place], [address] Hemoglobin (Bld) [Mass/Vol] 14.0 g/dL Normal 13.0-16.5 [facility] Comment on above: Performed By: #### L 501.9520 #### [facility] [address] [place], [address] IG% 0.400 Normal 0.0-0.9 [facility] Comment on above: Result Comment: IG% - Immature Granulocytes (promyelocytes, myelocytes and metamyelocytes) > 1% indicates that a LEFT SHIFT is Present. Performed By: #### L 501.9520 #### [facility] [address] [place], [address] Lymphocytes/100 WBC (Bld) 13.0 % Low 19-41 [facility] Comment on above: Performed By: #### L 501.9520 #### [facility] [address] [place], [address] MCH (RBC) [Entitic mass] 31.9 pg Normal 27.0-32.0 [facility] Comment on above: Performed By: #### L .9519 #### [facility] [address] [place], [address] MCHC (RBC) [Mass/Vol] 35.7 g/dL Normal 32-36 [facility] Comment on above: Performed By: #### L .9519 #### [facility] [address] [place], [address] MCV (RBC) [Entitic vol] 89.3 fL Normal 80-94 [facility] Comment on above: Performed By: #### L .9519 #### [facility] [address] [place], [address] Monocytes/100 WBC (Bld) 7.6 % Normal 0-10 [facility] Comment on above: Performed By: #### L 501.9519 #### [facility] [address] [place], [address] Neutrophils/100 WBC (Bld) 78.9 % High 47-70 [facility] Comment on above: Performed By: #### L [id number] #### [facility] [address] [place], [address] Nucleated RBC (Bld) [#/Vol] 0 10*3/uL Normal 0-5 [facility] Comment on above: Performed By: #### L 501.9519 #### [facility] [address] [place], [address] Platelet mean volume (Bld) [Entitic vol] 9.4 fL Normal 6.2-12.0 [facility] Comment on above: Performed By: #### L 501.9520 #### [facility] [address] [place], [address] Platelets (Bld) [#/Vol] 365 10*3/uL Normal 150-450 [facility] Comment on above: Performed By: #### L 501.9520 #### [facility] [address] [place], [address] RBC (Bld) [#/Vol] 4.39 10*6/uL Low 4.6-6.2 [facility] Comment on above: Performed By: #### L 501.9520 #### [facility] [address] [place], [address] RDW SD 36.3 fl Normal 35.1-43.9 [facility] Comment on above: Performed By: #### L 501.9520 #### [facility] [address] [place], [address] WBC (Bld) [#/Vol] 10.7 10*3/uL Normal 4.4-11.0 [facility] Comment on above: Performed By: #### L 501.9520 #### [facility] [address] [place], [address] Echo Complete W/ Contraston 07-06-2024 Echo Complete W/ Contrast [facility] [address] [place] [address] Echo Complete W/ Contrast 07/06/24 1339 MR#: [id number] Acct: [id number] Name: MONICA SPAIN Paul Rep #: [id number] : 1950 73 From: Geetha Morrow MD [...] Date Dictated: 07/06/24 1339 Date Transcribed: 07/07/24955 Body Coverer: Signed Normal [facility] Basic Metabolic Profile (BMP )on 07-05-2024 BUN/CRE 31.8 RATIO High 10-20 [facility] Comment on above: Performed By: #### L 500.2500 #### [facility] [address] [place], [address] CA,Total 9.2 mg/dL Normal 8.5-10.1 [facility] Comment on above: Performed By: #### L 500.2500 #### [facility] [address] [place], [address] Chloride [Moles/Vol] 104 mmol/L Normal 98-107 [facility] Comment on above: Performed By: #### L 500.2500 #### [facility] [address] [place], [address] CO2 [Moles/Vol] 23.0 mmol/L Normal 21.0-32.0 [facility] Comment on above: Performed By: #### L 500.2500 #### [facility] [address] [place], [address] Creatinine [Mass/Vol] 0.85 mg/dL Normal 0.70-1.30 [facility] Comment on above: Result Comment: The validity of the calculated GFR GFRAA in patients over 70 years has not been determined. Clinical correlation is essential. Performed By: #### L 500.2500 #### [facility] [address] [place], [address] ECRCL 90.67 ml/min Normal [facility] Comment on above: Performed By: #### L 500.2500 #### [facility] [address] [place], [address] EST GFR - AA 114 mL/min Normal >60 [facility] Comment on above: Result Comment: Afri can Trinidadian GFR Calc Performed By: #### L 500.2500 #### [facility] [address] [place], [address] GAP 8 Normal 5-15 [facility] Comment on above: Performed By: #### L 500.2500 #### [facility] [address] [place], [address] GFR/1.73 sq M.predicted among non-blacks MDRD (S/P/Bld) [Vol rate/Area] 94 mL/min/{1.73_m2} Normal >60 [facility] Comment on above: Result Comment: Non- GFR Calc Performed By: #### L 500.2500 #### [facility] [address] [place], [address] Glucose [Mass/Vol] 172 mg/dL High 74-106 [facility] Comment on above: Result Comment: Fast ing Glucose result greater than or equal to 126 mg/dL suggests DIABETES MELLITUS per A.D.A. criteria. Performed By: #### L 500.2500 #### [facility] [address] [place], [address] Potassium [Moles/Vol] 4.3 mmol/L Normal 3.5-5.1 [facility] Comment on above: Performed By: #### L 500.2500 #### [facility] [address] [place], [address] Sodium [Moles/Vol] 135 mmol/L Low 136-145 [facility] Comment on above: Performed By: #### L 500.2500 #### [facility] [address] [place], [address] Urea nitrogen [Mass/Vol] 27 mg/dL High 7-18 [facility] Comment on above: Performed By: #### L 500.2500 #### [facility] [address] [place], [address] Magnesiumon 07-05-2024 Magnesium [Mass/Vol] 2.4 mg/dL Normal 1.6-2.6 [facility] Comment on above: Performed By: #### L 501.5200 #### [facility] [address] [place], [address] Basic Metabolic Profile (BMP )on 07-04-2024 BUN/CRE 32.5 RATIO High 10-20 [facility] Comment on above: Performed By: #### L 500.2500 #### [facility] [address] [place], [address] CA,Total 8.7 mg/dL Normal 8.5-10.1 [facility] Comment on above: Performed By: #### L 500.2500 #### [facility] [address] [place], [address] Chloride [Moles/Vol] 104 mmol/L Normal 98-107 [facility] Comment on above: Performed By: #### L 500.2500 #### [facility] [address] [place], [address] CO2 [Moles/Vol] 21.0 mmol/L Normal 21.0-32.0 [facility] Comment on above: Performed By: #### L 500.2500 #### [facility] [address] [place], [address] Creatinine [Mass/Vol] 0.80 mg/dL Normal 0.70-1.30 [facility] Comment on above: Result Comment: The validity of the calculated GFR GFRAA in patients over 70 years has not been determined. Clinical correlation is essential. Performed By: #### L 500.2500 #### [facility] [address] [place], [address] ECRCL 95.91 ml/min Normal [facility] Comment on above: Performed By: #### L 500.2500 #### [facility] [address] [place], [address] EST GFR - AA 122 mL/min Normal >60 [facility] Comment on above: Result Comment: Afri can Trinidadian GFR Calc Performed By: #### L 500.2500 #### [facility] [address] [place], [address] GAP 11 Normal 5-15 [facility] Comment on above: Performed By: #### L 500.2500 #### [facility] [address] [place], [address] GFR/1.73 sq M.predicted among non-blacks MDRD (S/P/Bld) [Vol rate/Area] 101 mL/min/{1.73_m2} Normal >60 [facility] Comment on above: Result Comment: Non- GFR Calc Performed By: #### L 500.2500 #### [facility] [address] [place], [address] Glucose [Mass/Vol] 154 mg/dL High 74-106 [facility] Comment on above: Result Comment: Fast ing Glucose result greater than or equal to 126 mg/dL suggests DIABETES MELLITUS per A.D.A. criteria. Performed By: #### L 500.2500 #### [facility] [address] [place], [address] Potassium [Moles/Vol] 4.2 mmol/L Normal 3.5-5.1 [facility] Comment on above: Performed By: #### L 500.2500 #### [facility] [address] [place], [address] Sodium [Moles/Vol] 137 mmol/L Normal 136-145 [facility] Comment on above: Performed By: #### L 500.2500 #### [facility] [address] [place], [address] Urea nitrogen [Mass/Vol] 26 mg/dL High 7-18 [facility] Comment on above: Performed By: #### L 500.2500 #### [facility] [address] [place], [address] Magnesiumon 4 Magnesium [Mass/Vol] 2.2 mg/dL Normal 1.6-2.6 [facility] Comment on above: Performed By: #### L 501.5200, L501.2300 #### [facility] [address] [place], [address] Phosphoruson 11-12-2024 Phosphate [Mass/Vol] 3.2 mg/dL Normal 2.5-4.9 [facility] Comment on above: Performed By: #### L 501.5200, L501.2300 #### [facility] [address] [place], [address] CBC W/Diff, Automatedon 11- Absolute Lymph 1.64 X10 3/uL Normal 0.83-4.51 [facility] Comment on above: Performed By: #### L 501.2300, L501.5200, L100.0100, L500.4050 #### [facility] [address] [place], [address] Absolute Neut 3.7 X10 3/uL Normal 2.0-7.7 [facility] Comment on above: Performed By: #### L 501.2300, L501.5200, L100.0100, L500.4050 #### [facility] [address] [place], [address] Basophils/100 WBC (Bld) 0.0 % Normal 0-1 [facility] Comment on above: Performed By: #### L 501.2300, L501.5200, L100.0100, L500.4050 #### [facility] [address] [place], [address] Eosinophils/100 WBC (Bld) 0.0 % Normal 0-5 [facility] Comment on above: Performed By: #### L 501.2300, L501.5200, L100.0100, L500.4050 #### [facility] [address] [place], [address] Erythrocyte distribution width (RBC) [Ratio] 11.6 % Normal 11.6-14.6 [facility] Comment on above: Performed By: #### L 501.2300, L501.5200, L100.0100, L500.4050 #### [facility] [address] [place], [address] Hematocrit (Bld) [Volume fraction] 37.6 % Low 40-54 [facility] Comment on above: Performed By: #### L 501.2300, L501.5200, L100.0100, L500.4050 #### [facility] [address] [place], [address] Hemoglobin (Bld) [Mass/Vol] 12.9 g/dL Low 13.0-16.5 [facility] Comment on above: Performed By: #### L 501.2300, L501.5200, L100.0100, L500.4050 #### [facility] [address] [place], [address] IG% 0.300 Normal 0.0-0.9 [facility] Comment on above: Result Comment: IG% - Immature Granulocytes (promyelocytes, myelocytes and metamyelocytes) > 1% indicates that a LEFT SHIFT is Present. Performed By: #### L 501.2300, L501.5200, L100.0100, L500.4050 #### [facility] [address] [place], [address] Lymphocytes/100 WBC (Bld) 26.6 % Normal 19-41 [facility] Comment on above: Performed By: #### L 501.2300, L501.5200, L100.0100, L500.4050 #### [facility] [address] [place], [address] MCH (RBC) [Entitic mass] 31.2 pg Normal 27.0-32.0 [facility] Comment on above: Performed By: #### L 501.2300, L501.5200, L100.0100, L500.4050 #### [facility] [address] [place], [address] MCHC (RBC) [Mass/Vol] 34.3 g/dL Normal 32-36 [facility] Comment on above: Performed By: #### L 501.2300, L501.5200, L100.0100, L500.4050 #### [facility] [address] [place], [address] MCV (RBC) [Entitic vol] 90.8 fL Normal 80-94 [facility] Comment on above: Performed By: #### L 501.2300, L501.5200, L100.0100, L500.4050 #### [facility] [address] [place], [address] Monocytes/100 WBC (Bld) 13.6 % High 0-10 [facility] Comment on above: Performed By: #### L 501.2300, L501.5200, L100.0100, L500.4050 #### [facility] [address] [place], [address] Neutrophils/100 WBC (Bld) 59.5 % Normal 47-70 [facility] Comment on above: Performed By: #### L 501.2300, L501.5200, L100.0100, L500.4050 #### [facility] [address] [place], [address] Nucleated RBC (Bld) [#/Vol] 0 10*3/uL Normal 0-5 [facility] Comment on above: Performed By: #### L 501.2300, L501.5200, L100.0100, L500.4050 #### [facility] [address] [place], [address] Platelet mean volume (Bld) [Entitic vol] 9.5 fL Normal 6.2-12.0 [facility] Comment on above: Performed By: #### L 501.2300, L501.5200, L100.0100, L500.4050 #### [facility] [address] [place], [address] Platelets (Bld) [#/Vol] 222 10*3/uL Normal 150-450 [facility] Comment on above: Performed By: #### L 501.2300, L501.5200, L100.0100, L500.4050 #### [facility] [address] [place], [address] RBC (Bld) [#/Vol] 4.14 10*6/uL Low 4.6-6.2 [facility] Comment on above: Performed By: #### L 501.2300, L501.5200, L100.0100, L500.4050 #### [facility] [address] [place], [address] RDW SD 38.8 fl Normal 35.1-43.9 [facility] Comment on above: Performed By: #### L 501.2300, L501.5200, L100.0100, L500.4050 #### [facility] [address] [place], [address] WBC (Bld) [#/Vol] 6.2 10*3/uL Normal 4.4-11.0 [facility] Comment on above: Performed By: #### L 501.2300, L501.5200, L100.0100, L500.4050 #### [facility] [address] [place], [address] Comprehensive Metabolic Prof [facility] 07-03-2024 Albumin [Mass/Vol] 3.1 g/dL Low 3.2-5.0 [facility] Comment on above: Performed By: #### L 501.2300, L501.5200, L100.0100, L500.4050 #### [facility] [address] [place], [address] Albumin/Globulin [Mass ratio] 0.8 {ratio} Low 0.9-2.4 [facility] Comment on above: Performed By: #### L 501.2300, L501.5200, L100.0100, L500.4050 #### [facility] [address] [place], [address] ALK P 76 U/L Normal 45-117 [facility] Comment on above: Performed By: #### L 501.2300, L501.5200, L100.0100, L500.4050 #### [facility] [address] [place], [address] ALT [Catalytic activity/Vol] 28 U/L Normal 16-61 [facility] Comment on above: Performed By: #### L 501.2300, L501.5200, L100.0100, L500.4050 #### [facility] [address] [place], [address] AST [Catalytic activity/Vol] 46 U/L High 15-37 [facility] Comment on above: Performed By: #### L 501.2300, L501.5200, L100.0100, L500.4050 #### [facility] [address] [place], [address] Bilirubin [Mass/Vol] 0.80 mg/dL Normal 0.20-1.00 [facility] Comment on above: Result Comment: For patients on eltrombopag therapy, use of Dimension [place] TBIL is not recommended. Performed By: #### L 501.2300, L501.5200, L100.0100, L500.4050 #### [facility] [address] [place], [address] BUN/CRE 26.0 RATIO High 10-20 [facility] Comment on above: Performed By: #### L 501.2300, L501.5200, L100.0100, L500.4050 #### [facility] [address] [place], [address] CA,Total 8.8 mg/dL Normal 8.5-10.1 [facility] Comment on above: Performed By: #### L 501.2300, L501.5200, L100.0100, L500.4050 #### [facility] [address] [place], [address] Chloride [Moles/Vol] 107 mmol/L Normal 98-107 [facility] Comment on above: Performed By: #### L 501.2300, L501.5200, L100.0100, L500.4050 #### [facility] [address] [place], [address] CO2 [Moles/Vol] 22.0 mmol/L Normal 21.0-32.0 [facility] Comment on above: Performed By: #### L 501.2300, L501.5200, L100.0100, L500.4050 #### [facility] [address] [place], [address] Creatinine [Mass/Vol] 0.88 mg/dL Normal 0.70-1.30 [facility] Comment on above: Result Comment: The validity of the calculated GFR GFRAA in patients over 70 years has not been determined. Clinical correlation is essential. Performed By: #### L 501.2300, L501.5200, L100.0100, L500.4050 #### [facility] [address] [place], [address] ECRCL 86.67 ml/min Normal [facility] Comment on above: Performed By: #### L 501.2300, L501.5200, L100.0100, L500.4050 #### [facility] [address] [place], [address] EST GFR - AA 109 mL/min Normal >60 [facility] Comment on above: Result Comment: Afri can Trinidadian GFR Calc Performed By: #### L 501.2300, L501.5200, L100.0100, L500.4050 #### [facility] [address] [place], [address] GAP 6 Normal 5-15 [facility] Comment on above: Performed By: #### L 501.2300, L501.5200, L100.0100, L500.4050 #### [facility] [address] [place], [address] GFR/1.73 sq M.predicted among non-blacks MDRD (S/P/Bld) [Vol rate/Area] 90 mL/min/{1.73_m2} Normal >60 [facility] Comment on above: Result Comment: Non- GFR Calc Performed By: #### L 501.2300, L501.5200, L100.0100, L500.4050 #### [facility] [address] [place], [address] Globulin (S) [Mass/Vol] 3.7 g/dL Normal 2.2-4.2 [facility] Comment on above: Performed By: #### L 501.2300, L501.5200, L100.0100, L500.4050 #### [facility] [address] [place], [address] Glucose [Mass/Vol] 111 mg/dL High 74-106 [facility] Comment on above: Result Comment: Fast ing Glucose result from 100 to 125 mg/dL suggests IMPAIRED HOMEOSTASIS per A.D.A. criteria. Performed By: #### L 501.2300, L501.5200, L100.0100, L500.4050 #### [facility] [address] [place], [address] Potassium [Moles/Vol] 4.1 mmol/L Normal 3.5-5.1 [facility] Comment on above: Performed By: #### L 501.2300, L501.5200, L100.0100, L500.4050 #### [facility] [address] [place], [address] Sodium [Moles/Vol] 135 mmol/L Low 136-145 [facility] Comment on above: Performed By: #### L 501.2300, L501.5200, L100.0100, L500.4050 #### [facility] [address] [place], [address] T PROT 6.8 g/dL Normal 6.4-8.2 [facility] Comment on above: Performed By: #### L 501.2300, L501.5200, L100.0100, L500.4050 #### [facility] [address] [place], [address] Urea nitrogen [Mass/Vol] 23 mg/dL High 7-18 [facility] Comment on above: Performed By: #### L 501.2300, L501.5200, L100.0100, L500.4050 #### [facility] [address] [place], [address] Magnesiumon 4 Magnesium [Mass/Vol] 2.0 mg/dL Normal 1.6-2.6 [facility] Comment on above: Performed By: #### L 500.2500 #### [facility] [address] [place], [address] Phosphoruson 4 Phosphate [Mass/Vol] 2.4 mg/dL Low 2.5-4.9 [facility] Comment on above: Performed By: #### L 501.2300, L501.5200, L100.0100, L500.4050 #### [facility] [address] [place], [address] Urine Cultureon 07-03-2024 URC Mixed Gram Pos Gram Neg Org [place] Count 1000-10,000 MIXC Mixed contaminants. Submit a new specimen if indicated. Normal [facility] Comment on above: Performed By: #### L 430.5203 #### [facility] [address] [place], [address] 12 Lead EKGon 07-02-2024 12 Lead EKG [facility] [address] [place] [address] 12 Lead EKG 07/02/24 1824 MR#: [id number] Acct: [id number] Name: MONICA SPAIN Rep #: [id number] : 1950 73 From: Sukhi Burns MD Attending Dr: Dr. Epi Tirado MD Status : ADM IN Ordering Dr: Levon Olivares Date: 07/02/24 Location: [facility] Sex: M C Admitted: 07/02/24 Test Reason [...] normal ECG Confirmed by ROSA PRITCHETT, SUKHI ([id number]), newspaper managing editor DINA PENA ([id number]) on 07/03/2024 10:21:07 AM Referred By: Tom Escobedo Confirmed By: SUKHI BURNS MD 07/03/24 1021 Date Sukhi Burns MD CC: LICENSING ANALYST-C Levon Olivares; Dr. Tom Escobedo DO; Dr. Epi Tirado MD; Dr. Levon Duke MD Signed Normal [facility] BNP,B-Type NATRIURETIC PEPTI Calista 07-02-2024 Natriuretic peptide B (Bld) [Mass/Vol] 65.7 pg/mL Normal 0-100 [facility] Comment on above: Performed By: #### L 503.6675 #### [facility] [address] [place], [address] CBC W/Diff, Automatedon 11-1 0-2023 Absolute Lymph 1.13 X10 3/uL Normal 0.83-4.51 [facility] Comment on above: Performed By: #### L 500.2500 #### [facility] [address] [place], [address] Absolute Neut 4.8 X10 3/uL Normal 2.0-7.7 [facility] Comment on above: Performed By: #### L 500.2500 #### [facility] [address] [place], [address] Basophils/100 WBC (Bld) 0.0 % Normal 0-1 [facility] Comment on above: Performed By: #### L 500.2500 #### [facility] [place], [address] Eosinophils/100 WBC (Bld) 0.0 % Normal 0-5 [facility] Comment on above: Performed By: #### L 500.2500 #### [facility] [address] [place], [address] Erythrocyte distribution width (RBC) [Ratio] 11.6 % Normal 11.6-14.6 [facility] Comment on above: Performed By: #### L 500.2500 #### [facility] [address] [place], [address] Hematocrit (Bld) [Volume fraction] 39.2 % Low 40-54 [facility] Comment on above: Performed By: #### L 500.2500 #### [facility] [address] [place], [address] Hemoglobin (Bld) [Mass/Vol] 13.8 g/dL Normal 13.0-16.5 [facility] Comment on above: Performed By: #### L 500.2500 #### [facility] [address] [place], [address] IG% 0.300 Normal 0.0-0.9 [facility] Comment on above: Result Comment: IG% - Immature Granulocytes (promyelocytes, myelocytes and metamyelocytes) > 1% indicates that a LEFT SHIFT is Present. Performed By: #### L 500.2500 #### [facility] [address] [place], [address] Lymphocytes/100 WBC (Bld) 17.7 % Low 19-41 [facility] Comment on above: Performed By: #### L 500.2500 #### [facility] [address] [place], [address] MCH (RBC) [Entitic mass] 31.7 pg Normal 27.0-32.0 [facility] Comment on above: Performed By: #### L 500.2500 #### [facility] [address] [place] [address] [place], [address] MCHC (RBC) [Mass/Vol] 35.2 g/dL Normal 32-36 [facility] Comment on above: Performed By: #### L 500.2500 #### [facility] [address] [place], [address] MCV (RBC) [Entitic vol] 89.9 fL Normal 80-94 [facility] Comment on above: Performed By: #### L 500.2500 #### [facility] [address] [place], [address] Monocytes/100 WBC (Bld) 7.5 % Normal 0-10 [facility] Comment on above: Performed By: #### L 500.2500 #### [facility] [address] [place], [address] Neutrophils/100 WBC (Bld) 74.5 % High 47-70 [facility] Comment on above: Performed By: #### L 500.2500 #### [facility] [address], [address] Nucleated RBC (Bld) [#/Vol] 0 10*3/uL Normal 0-5 [facility] Comment on above: Performed By: #### L 500.2500 #### [facility] [address] [place], [address] Platelet mean volume (Bld) [Entitic vol] 9.4 fL Normal 6.2-12.0 [facility] Comment on above: Performed By: #### L 500.2500 #### [facility] [address] [place], [address] Platelets (Bld) [#/Vol] 247 10*3/uL Normal 150-450 [facility] Comment on above: Performed By: #### L 500.2500 #### [facility] [address] [place], [address] RBC (Bld) [#/Vol] 4.36 10*6/uL Low 4.6-6.2 [facility] Comment on above: Performed By: #### L 500.2500 #### [facility] [address] [place], [address] RDW SD 38.1 fl Normal 35.1-43.9 [facility] Comment on above: Performed By: #### L 500.2500 #### [facility] [address] [place], [address] WBC (Bld) [#/Vol] 6.4 10*3/uL Normal 4.4-11.0 [facility] Comment on above: Performed By: #### L 500.2500 #### [facility] [address] [place], [address] Chest 1 View (Portable)on Chest 1 View (Portable) [facility] Imaging Services [address] [place] [address] Chest 1 View (Portable) MR#: [id number] Acct: [id number] Name: MONICA SPAIN Rep #: [id number] : 1950 M 73 From: Zach Gomez PCP: Dr. Levon Duke MD Status: REG ER Study: Chest 1 View (Portable) Date of Exam: 07/02/24 Exam# [id number] Ordering Dr: Leovn Olivares [id number] STUDY: XR Chest 1 View 07/02/2024 7:00 [...] 20:11 EST Reading Location ID and State: [facility] / [place] , Service support , CC: NAYELI Olivares; Dr. Levon Duke MD Body Coverer: Signed Normal [facility] Comprehensive Metabolic Prof rossyon 07-02-2024 Albumin [Mass/Vol] 3.5 g/dL Normal 3.2-5.0 [facility] Comment on above: Order Comment: 'TROP ' Serial specimen #1, #2 or #3: 1 Performed By: #### L 500.2500 #### [facility] [address] [place], [address] Albumin/Globulin [Mass ratio] 0.9 {ratio} Normal 0.9-2.4 [facility] Comment on above: Order Comment: 'TROP ' Serial specimen #1, #2 or #3: 1 Performed By: #### L 500.2500 #### [facility] [address] [place], [address] ALK P 86 U/L Normal 45-117 [facility] Comment on above: Order Comment: 'TROP ' Serial specimen #1, #2 or #3: 1 Performed By: #### L 500.2500 #### [facility] [address] [place], [address] ALT [Catalytic activity/Vol] 32 U/L Normal 16-61 [facility] Comment on above: Order Comment: 'TROP ' Serial specimen #1, #2 or #3: 1 Performed By: #### L 500.2500 #### [facility] [address] [place], [address] AST [Catalytic activity/Vol] 50 U/L High 15-37 [facility] Comment on above: Order Comment: 'TROP ' Serial specimen #1, #2 or #3: 1 Performed By: #### L 500.2500 #### [facility] [address] [place], [address] Bilirubin [Mass/Vol] 0.80 mg/dL Normal 0.20-1.00 [facility] Comment on above: Order Comment: 'TROP ' Serial specimen #1, #2 or #3: 1 Result Comment: For patients on eltrombopag therapy, use of Dimension [place] TBIL is not recommended. Performed By: #### L 500.2500 #### [facility] [address] [place], [address] BUN/CRE 23.7 RATIO High 10-20 [facility] Comment on above: Order Comment: 'TROP ' Serial specimen #1, #2 or #3: 1 Performed By: #### L 500.2500 #### [facility] [address] [place], [address] CA,Total 9.1 mg/dL Normal 8.5-10.1 [facility] Comment on above: Order Comment: 'TROP ' Serial specimen #1, #2 or #3: 1 Performed By: #### L 500.2500 #### [facility] [address] [place], [address] Chloride [Moles/Vol] 102 mmol/L Normal 98-107 [facility] Comment on above: Order Comment: 'TROP ' Serial specimen #1, #2 or #3: 1 Performed By: #### L 500.2500 #### [facility] [address] [place], [address] CO2 [Moles/Vol] 21.0 mmol/L Normal 21.0-32.0 [facility] Comment on above: Order Comment: 'TROP ' Serial specimen #1, #2 or #3: 1 Performed By: #### L 500.2500 #### [facility] [address] [place], [address] Creatinine [Mass/Vol] 1.14 mg/dL Normal 0.70-1.30 [facility] Comment on above: Order Comment: 'TROP ' Serial specimen #1, #2 or #3: 1 Result Comment: The validity of the calculated GFR GFRAA in patients over 70 years has not been determined. Clinical correlation is essential. Performed By: #### L 500.2500 #### [facility] [address] [place], [address] ECRCL 68.35 ml/min Normal [facility] Comment on above: Order Comment: 'TROP ' Serial specimen #1, #2 or #3: 1 Performed By: #### L 500.2500 #### [facility] [address] [place], [address] EST GFR - AA 81 mL/min Normal >60 [facility] Comment on above: Order Comment: 'TROP ' Serial specimen #1, #2 or #3: 1 Result Comment: Afri can Trin[place] GFR Calc Performed By: #### L 500.2500 #### [facility] [address] [place], [address] GAP 8 Normal 5-15 [facility] Comment on above: Order Comment: 'TROP ' Serial specimen #1, #2 or #3: 1 Performed By: #### L 500.2500 #### [facility] [address] [place], [address] GFR/1.73 sq M.predicted among non-blacks MDRD (S/P/Bld) [Vol rate/Area] 67 mL/min/{1.73_m2} Normal >60 [facility] Comment on above: Order Comment: 'TROP ' Serial specimen #1, #2 or #3: 1 Result Comment: Non- GFR Calc Performed By: #### L 500.2500 #### [facility] [address] [place], [address] Globulin (S) [Mass/Vol] 3.9 g/dL Normal 2.2-4.2 [facility] Comment on above: Order Comment: 'TROP ' Serial specimen #1, #2 or #3: 1 Performed By: #### L 500.2500 #### [facility] [address] [place], [address] Glucose [Mass/Vol] 171 mg/dL High 74-106 [facility] Comment on above: Order Comment: 'TROP ' Serial specimen #1, #2 or #3: 1 Result Comment: Fast ing Glucose result greater than or equal to 126 mg/dL suggests DIABETES MELLITUS per A.D.A. criteria. Performed By: #### L 500.2500 #### [facility] [address] [place], [address] Potassium [Moles/Vol] 4.5 mmol/L Normal 3.5-5.1 [facility] Comment on above: Order Comment: 'TROP ' Serial specimen #1, #2 or #3: 1 Performed By: #### L 500.2500 #### [facility] [address] [place], [address] Sodium [Moles/Vol] 132 mmol/L Low 136-145 [facility] Comment on above: Order Comment: 'TROP ' Serial specimen #1, #2 or #3: 1 Performed By: #### L 500.2500 #### [facility] [address] [place], [address] T PROT 7.4 g/dL Normal 6.4-8.2 [facility] Comment on above: Order Comment: 'TROP ' Serial specimen #1, #2 or #3: 1 Performed By: #### L 500.2500 #### [facility] [address] [place], [address] Urea nitrogen [Mass/Vol] 27 mg/dL High 7-18 [facility] Comment on above: Order Comment: 'TROP ' Serial specimen #1, #2 or #3: 1 Performed By: #### L 500.2500 #### [facility] [address] [place], [address] Emergency Department Summary on 07-02-2024 Emergency Department Summary [facility] Medical Records Department [address] [place] [address] Emergency Department Summary 07/02/24 MR#: [id number] Acct: [id number] Name: MONICA SPAIN Rep #: [id number] : 1950 73 From: Kalen Sunshine DO PCP: Dr. Levon Duke MD Status:ADM IN Location: [place] [address] Patient was seen and examined with Nurse aby Dos Santos All components of the history and physical confirmed and agreed. History of present illness and physical exam: Patient is a 73-year-old male who presented to the emergency department from [facility] with a chief complaint of shortness [...] 100 mg (more content not included)... Normal [facility] H AND P Exam - Hospitaliston 07-02-2024 H&P Exam - Hospitalist [facility] Medical Records Department [address] [place] [address] H P Exam - Hospitalist 07/02/241944 MR#: [id number] Acct: [id number] Name: MONICA SPAIN Rep #: [id number] : 1950 73 From: Tom Escobedo DO PCP: Dr. Levon Duke MD Status:ADM IN Location: [facility] RE256-4 [facility] - General General Date of [...] mobilizing in a wheelchair currently residing at [facility] who presents to [facility] ER complaining of generalized weakness and [...] is expected to extend beyond 48 hours. [facility] Home Medications ???Medication ???Instructions ???Recorded ???Last [...] Patient de (more content not included)... Normal [facility] L501.4020on 07-02-2024 TROPONIN-I HS 28 pg/mL Normal 3.0-78.0 [facility] Comment on above: Order Comment: 'TROP ' Serial specimen #1, #2 or #3: 1 Result Comment: Plea se Note: New Test Units and Gender Specific Reference Ranges. For more information see Policy Stat Procedure [place] High Sensitivity Troponin (TNIH) and attachments. Performed By: #### L 500.2500 #### [facility] [address] [place], [address] Lactic Acidon 07-02-2024 Lactate [Moles/Vol] 1.3 mmol/L Normal 0.4-1.9 [facility] Comment on above: Order Comment: Y Performed By: #### L 500.2500 #### [facility] [address] [place], [address] M100.678on 07-02-2024 M100.678 Pending SARS-CoV-2 (COVID 19) Negative INFLUENZA A A Positive A INFLUENZA B Negative RSV PCR Negative INFLUENZAE A Normal [facility] Comment on above: Performed By: #### L 501.5200 #### [facility] [address] [place], [address] Partial Thromboplast Timeon 07-02-2024 aPTT Coag (Bld) [Time] 28.9 s Normal 24.1-36.2 [facility] Comment on above: Performed By: #### L 500.2500 #### [facility] [address] [place], [address] Prothrombin Time w/INRon INR Coag (PPP) [Relative time] 1.1 {INR} Normal [facility] Comment on above: Performed By: #### L 500.2500 #### [facility] [address] [place], [address] PT Coag (PPP) [Time] 13.8 s Normal 11.7-14.9 [facility] Comment on above: Performed By: #### L 500.2500 #### [facility] [address] [place], [address] Thyroid Stim Hormone (TSH)on 07-02-2024 TSH 1.400 uIU/mL Normal 0.358-3.740 [facility] Comment on above: Performed By: #### L 501.3020 #### [facility] [address] [place], [address] Urinalysis, Completeon 07-02 BACTERIA 0 SEEN Normal None Seen [facility] Comment on above: Order Comment: OSMAN CTOR TO SPECIFY Performed By: #### L 501.5200 #### [facility] [address] [place], [address] EPI,SQUAMOUS 0 SEEN Normal 0-5 [facility] Comment on above: Order Comment: OSMAN CTOR TO SPECIFY Performed By: #### L 501.5200 #### [facility] [address] [place], [address] Mucus Ql (Urine sed) 0 SEEN Normal [facility] Comment on above: Order Comment: OSMAN CTOR TO SPECIFY Performed By: #### L 501.5200 #### [facility] [address] [place], [address] RBC 0 SEEN Normal 0-5 [facility] Comment on above: Order Comment: OSMAN CTOR TO SPECIFY Performed By: #### L 501.5200 #### [facility] [address] [place], [address] WBC 0 SEEN Normal 0-5 [facility] Comment on above: Order Comment: COLLE CTOR TO SPECIFY Performed By: #### L 501.5200 #### [facility] [address] [place], [place], [address] DIAG MAMM W/CAD, BILATon DIAG MAMM W/CAD, BILAT [facility] Imaging Services [address] [place] [address] DIAG MAMM W/CAD, BILAT MR#: [id number] Acct: [id number] Name: MONICA SPAIN Rep #: [id number] : 1950 M 73 From: Drew Gresham MD PCP: Dr. Levon Duke MD Status: [facility] Study: DIAG MAMM W/CAD, BILAT Date of Exam: 02/18/24 Exam# [id number] Ordering Dr: Geetha Lara LICENSING ANALYST LICENSING ANALYST-C [id number] MAMMOGRAPHY - BILATERAL DIAGNOSTIC REASON FOR EXAM: [...] CC: NAYELI Lara; Dr. Levon Duke MD Body Coverer: Signed Normal [facility] CNOVon 08-31-2023 CNOV Office Visit (UROLWS ) MONICA SPAIN ([id number]) 1950 M Date Time Provider Department 08/31/23 3:30 PM CALEB ACKERMAN During your visit today, we recorded the following information about you: Blood pressure 160/84 Shonna Overton RN 08/31/2023 6:26 PM Signed post void 56 ml, last void approx less than 1 hour ago. Pt unable to give sample at visit today. GILMER Rouse Brandon, PA-C 08/31/2023 6:26 PM Signed [facility] NEW PATIENT CLINIC NOTE [...] and educ (more content not included)... [facility] 08-27-2023 CNPN Telephone (UROLWS) MONICA SPAIN ([id number]) 1950 Date Time Provider Department 08/27/23 CALEB ACKERMAN During your visit today, we recorded the following information about you: Beryl Rosario AUTO BODY SHOP MANAGER 08/27/2023 11:14 AM Signed Called patient- resides at [facility]. Spoke with Kaya to request medical records and to remind of appointment time. Beryl RosarioKEVIN Beryl Rosario KEVIN 08/30/2023 2:25 PM Signed Called patient- patient resides at [facility]- spoke with Laura who transferred me to medical records. Message left of request. Beryl Rosario AUTO BODY SHOP MANAGER Allergies As of Date: 08/27/2023 (Not on File) Date Reviewed: Never Reviewed Reason for Visit: Request Outside Medical Records [[id number]] Prescriptions as of 09/02/2023 - amLODIPine (NORVASC) [...] by TRA CORBIN LAURIE on 09/02/23 [facility] .Auto Diffon 03-30-2022 Basophil, Absolute 0.1 10 3/mcL Normal 0.0-0.3 [facility] ([place]) Comment on above: Performed By: #### A PTT, GFR, PRO, BMP, TROPHS #### [address] [address] Basophils/100 WBC (Bld) 0.8 % Normal 0.0-2.5 [facility] ([place]) Comment on above: Performed By: #### A PTT, GFR, PRO, BMP, TROPHS #### [address] [address] Eosinophil, Absolute 0.4 10 3/mcL Normal 0.0-0.7 [facility] ([place]) Comment on above: Performed By: #### A PTT, GFR, PRO, BMP, TROPHS #### [address] [address] Eosinophils/100 WBC (Bld) 3.6 % Normal 0.0-6.0 [facility] ([place]) Comment on above: Performed By: #### A PTT, GFR, PRO, BMP, TROPHS #### [address] [address] Lymphocyte, Absolute 2.1 10 3/mcL Normal 0.9-4.3 [facility] ([place]) Comment on above: Performed By: #### A PTT, GFR, PRO, BMP, TROPHS #### [address] [address] Lymphocytes/100 WBC (Bld) 19.6 % Low 20.0-40.0 [facility] ([place]) Comment on above: Performed By: #### A PTT, GFR, PRO, BMP, TROPHS #### [address] [address] Monocyte, Absolute 1.2 10 3/mcL Normal 0.1-1.4 [facility] ([place]) Comment on above: Performed By: #### A PTT, GFR, PRO, BMP, TROPHS #### [address] [address] Monocytes/100 WBC (Bld) 11.2 % Normal 2.0-13.0 [facility] ([place]) Comment on above: Performed By: #### A PTT, GFR, PRO, BMP, TROPHS #### [address] [address] Neutrophils/100 WBC (Bld) 64.8 % Normal 50.0-75.0 [facility] ([place]) Comment on above: Performed By: #### A PTT, GFR, PRO, BMP, TROPHS #### [address] [address] .GFRon 03-30-2022 GFR >60 Normal [facility] ([place]) Comment on above: Result Comment: GFR Population [...] A PTT, GFR, PRO, BMP, TROPHS #### [address] [address] GFR Non- >60 Normal [facility] ([place]) Comment on above: Result Comment: GFR Population [...] A PTT, GFR, PRO, BMP, TROPHS #### [address] [address] .MDWon 03-30-2022 Monocyte Distribution Width Not performed Normal 0.00-20.00 [facility] ([place]) Comment on above: Result Comment: MDW testing performed only on adult ER patients between the ages of 18-89 years. Performed By: #### A PTT, GFR, PRO, BMP, TROPHS #### [place] [address] .NEUABSon 03-30-2022 Neutrophil, Absolute 7.1 10 3/mcL Normal 2.3-8.1 [facility] ([place]) Comment on above: Performed By: #### A PTT, GFR, PRO, BMP, TROPHS #### [place] [address] BMPon 03-30-2022 BUN/Creatinine Ratio 18.2 ratio Normal 10.0-22.0 [facility] ([place]) Comment on above: Performed By: #### A PTT, GFR, PRO, BMP, TROPHS #### [address] [address] Calcium [Mass/Vol] 9.6 mg/dL Normal 8.7-10.4 [facility] ([place]) Comment on above: Performed By: #### A PTT, GFR, PRO, BMP, TROPHS #### [address] [address] Chloride [Moles/Vol] 109 mmol/L Normal 98-110 [facility] ([place]) Comment on above: Performed By: #### A PTT, GFR, PRO, BMP, TROPHS #### [place] [id number] CO2 [Moles/Vol] 24 mmol/L Normal 22-32 [facility] ([place]) Comment on above: Performed By: #### A PTT, GFR, PRO, BMP, TROPHS #### [address] [address] Creatinine [Mass/Vol] 0.77 mg/dL Normal 0.60-1.40 [facility] ([place]) Comment on above: Performed By: #### A PTT, GFR, PRO, BMP, TROPHS #### [address] [address] Electrolyte Balance 9.0 mEq/L Normal 4.0-15.0 [facility] ([place]) Comment on above: Performed By: #### A PTT, GFR, PRO, BMP, TROPHS #### [address] [address] Glucose [Mass/Vol] 90 mg/dL Normal 82-115 [facility] ([place]) Comment on above: Performed By: #### A PTT, GFR, PRO, BMP, TROPHS #### [place] [id number] Potassium [Moles/Vol] 3.7 mmol/L Normal 3.5-5.0 [facility] ([place] Comment on above: Performed By: #### A PTT, GFR, PRO, BMP, TROPHS #### [address] [address] Sodium [Moles/Vol] 142 mmol/L Normal 136-145 [facility] ([place]) Comment on above: Performed By: #### A PTT, GFR, PRO, BMP, TROPHS #### [address] [address] Urea nitrogen [Mass/Vol] 14.0 mg/dL Normal 8.0-22.0 [facility] ([place]) Comment on above: Performed By: #### A PTT, GFR, PRO, BMP, TROPHS #### [address] [address] CBCon 03-30-2022 Erythrocyte distribution width (RBC) [Ratio] 11.4 % Low 11.5-15.5 [facility] ([place] Comment on above: Performed By: #### A PTT, GFR, PRO, BMP, TROPHS #### [place] [address] Hematocrit (Bld) [Volume fraction] 39.6 % Low 40.0-52.0 [facility] ([place] Comment on above: Performed By: #### A PTT, GFR, PRO, BMP, TROPHS #### [place] [address] Hgb 13.9 G/dL Normal 13.0-17.5 [facility] ([place] Comment on above: Performed By: #### A PTT, GFR, PRO, BMP, TROPHS #### [place] [address] MCH (RBC) [Entitic mass] 32.8 pg Normal 27.0-33.0 [facility] ([place] Comment on above: Performed By: #### A PTT, GFR, PRO, BMP, TROPHS #### [place] [address] MCHC 35.2 G/dL Normal 32.0-36.0 [facility] ([place] Comment on above: Performed By: #### A PTT, GFR, PRO, BMP, TROPHS #### [place] [address] MCV (RBC) [Entitic vol] 93.4 fL Normal 81.0-100.0 [facility] ([place] Comment on above: Performed By: #### A PTT, GFR, PRO, BMP, TROPHS #### [place] [address] Platelet 339 10 3/mcL Normal 150-450 [facility] ([place] Comment on above: Performed By: #### A PTT, GFR, PRO, BMP, TROPHS #### [place] [address] Platelet mean volume (Bld) [Entitic vol] 7.7 fL Normal 6.4-10.5 [facility] ([place] Comment on above: Performed By: #### A PTT, GFR, PRO, BMP, TROPHS #### [place] [id number] RBC 4.24 10 6/mcL Low 4.50-6.00 [facility] ([place] Comment on above: Performed By: #### A PTT, GFR, PRO, BMP, TROPHS #### [place] [address] WBC 10.9 10 3/mcL High 4.5-10.8 [facility] ([place] Comment on above: Performed By: #### A PTT, GFR, PRO, BMP, TROPHS #### [place] [address] CVFLURVon 03-30-2022 Date of Onset 20220330 Invalid Interpretation Code [facility] ([place] Comment on above: Performed By: #### A PTT, GFR, PRO, BMP, TROPHS #### [place] [address] Employed in Healthcare No [facility] ([place] Comment on above: Performed By: #### A PTT, GFR, PRO, BMP, TROPHS #### [place] [address] First Test Unknown [facility] ([place] Comment on above: Performed By: #### A PTT, GFR, PRO, BMP, TROPHS #### [place] [address] FLU A PCR Negative Normal Negative [facility] ([place] Comment on above: Result Comment: Note s 1990 Performed By: #### A PTT, GFR, PRO, BMP, TROPHS #### [place] [address] FLU B PCR Negative Normal Negative [facility] ([place] Comment on above: Result Comment: Note s 1990 Performed By: #### A PTT, GFR, PRO, BMP, TROPHS #### [place] [address] Hospitalized Yes [facility] ([place] Comment on above: Performed By: #### A PTT, GFR, PRO, BMP, TROPHS #### [place] [address] ICU No [facility] ([place] Comment on above: Performed By: #### A PTT, GFR, PRO, BMP, TROPHS #### [place] [address] Not [facility] ([place] Comment on above: Performed By: #### A PTT, GFR, PRO, BMP, TROPHS #### [place] [address] Resides in Congregate Care Setting Yes [facility] ([place] Comment on above: Performed By: #### A PTT, GFR, PRO, BMP, TROPHS #### [place] [address] RSV PCR Negative Normal Negative [facility] ([place] Comment on above: Result Comment: Note s 1990 Performed By: #### A PTT, GFR, PRO, BMP, TROPHS #### [place] [address] SARS-CoV-2 (COVID-19) RNA ALEIDA+probe Ql (Unsp spec) Negative Normal Negative [facility] ([place] Comment on above: Result Comment: Note s [...] A PTT, GFR, PRO, BMP, TROPHS #### [place] [address] Symptomatic as Defined by CDC No [facility] ([place] Comment on above: Performed By: #### A PTT, GFR, PRO, BMP, TROPHS #### [place] [address] LABORATORYOrdered By: Sera Lin on 03-30-2022 Date [...] Glucose Testing Reason Routine (03/30/22 7:23 AM) [facility] Glucose [Mass/Vol] 108 mg/dL Invalid Interpretation Code 82 - 115 mg/dL [facility] LABORATORYOrdered By: SYSTEM SYSTEM on 03-30-2022 Basophils [...] Glucose Testing Reason Routine (03/29/22 9:40 PM) [facility] Glucose [Mass/Vol] 106 mg/dL Invalid Interpretation Code 82 - 115 mg/dL [facility] LABORATORYOrdered By: Karyn Cordero on 03-29-2022 Glucose [Mass/Vol] 101 mg/dL Invalid Interpretation Code 82 - 115 mg/dL [facility] LABORATORYOrdered By: Petr Miller on 03-29-2022 Blood Glucose Testing Reason Routine (03/29/22 11:46 AM) [facility] MRI BRAIN W/ + W/O CONTRASTo n [...] 03/29/2022 5:30:08 PM Ordering Provider: NERY Crow [facility] ([place]) .Auto Diffon 03-28-2022 Basophil, Absolute 0.1 10 3/mcL Normal 0.0-0.3 [facility] ([place]) Comment on above: Performed By: #### A PTT, GFR, PRO, BMP, TROPHS #### [address] [address] Basophils/100 WBC (Bld) 1.3 % Normal 0.0-2.5 [facility] ([place] Comment on above: Performed By: #### A PTT, GFR, PRO, BMP, TROPHS #### [address] [address] Eosinophil, Absolute 0.5 10 3/mcL Normal 0.0-0.7 [facility] ([place]) Comment on above: Performed By: #### A PTT, GFR, PRO, BMP, TROPHS #### [address] [address] Eosinophils/100 WBC (Bld) 5.9 % Normal 0.0-6.0 [facility] ([place] Comment on above: Performed By: #### A PTT, GFR, PRO, BMP, TROPHS #### [address] [address] Lymphocyte, Absolute 2.2 10 3/mcL Normal 0.9-4.3 [facility] ([place] Comment on above: Performed By: #### A PTT, GFR, PRO, BMP, TROPHS #### [address] [address] Lymphocytes/100 WBC (Bld) 27.2 % Normal 20.0-40.0 [facility] ([place] Comment on above: Performed By: #### A PTT, GFR, PRO, BMP, TROPHS #### [address] [address] Monocyte, Absolute 1.1 10 3/mcL Normal 0.1-1.4 [facility] ([place] Comment on above: Performed By: #### A PTT, GFR, PRO, BMP, TROPHS #### [address] [address] Monocytes/100 WBC (Bld) 13.5 % High 2.0-13.0 [facility] ([place]) Comment on above: Performed By: #### A PTT, GFR, PRO, BMP, TROPHS #### [address] [address] Neutrophils/100 WBC (Bld) 52.1 % Normal 50.0-75.0 [facility] ([place]) Comment on above: Performed By: #### A PTT, GFR, PRO, BMP, TROPHS #### [address] [address] Basophil, Absolute 0.1 10 3/mcL Normal 0.0-0.3 [facility] ([place]) Comment on above: Performed By: #### A PTT, GFR, PRO, BMP, TROPHS #### [address] [address] Basophils/100 WBC (Bld) 1.2 % Normal 0.0-2.5 [facility] ([place]) Comment on above: Performed By: #### A PTT, GFR, PRO, BMP, TROPHS #### [address] [address] Eosinophil, Absolute 0.4 10 3/mcL Normal 0.0-0.7 [facility] ([place]) Comment on above: Performed By: #### A PTT, GFR, PRO, BMP, TROPHS #### [address] [address] Eosinophils/100 WBC (Bld) 4.1 % Normal 0.0-6.0 [facility] ([place]) Comment on above: Performed By: #### A PTT, GFR, PRO, BMP, TROPHS #### [address] [address] Lymphocyte, Absolute 2.3 10 3/mcL Normal 0.9-4.3 [facility] ([place]) Comment on above: Performed By: #### A PTT, GFR, PRO, BMP, TROPHS #### [address] [address] Lymphocytes/100 WBC (Bld) 24.6 % Normal 20.0-40.0 [facility] ([place] Comment on above: Performed By: #### A PTT, GFR, PRO, BMP, TROPHS #### [address] [address] Monocyte, Absolute 1.4 10 3/mcL Normal 0.1-1.4 [facility] ([place] Comment on above: Performed By: #### A PTT, GFR, PRO, BMP, TROPHS #### [address] [address] Monocytes/100 WBC (Bld) 15.7 % High 2.0-13.0 [facility] ([place] Comment on above: Performed By: #### A PTT, GFR, PRO, BMP, TROPHS #### [address] [address] Neutrophils/100 WBC (Bld) 54.4 % Normal 50.0-75.0 [facility] ([place] Comment on above: Performed By: #### A PTT, GFR, PRO, BMP, TROPHS #### [address] [address] .GFRon 03-28-2022 GFR >60 Normal [facility] ([place] Comment on above: Result Comment: GFR Population [...] A PTT, GFR, PRO, BMP, TROPHS #### [address] [address] GFR Non- >60 Normal [facility] ([place] Comment on above: Result Comment: GFR Population [...] A PTT, GFR, PRO, BMP, TROPHS #### [address] [address] GFR Non- >60 Normal [facility] ([place] Comment on above: Result Comment: GFR Population [...] A PTT, GFR, PRO, BMP, TROPHS #### [address] [address] GFR >60 Normal [facility] ([place] Comment on above: Result Comment: GFR Population [...] A PTT, GFR, PRO, BMP, TROPHS #### [address] [address] .MDWon 03-28-2022 Monocyte Distribution Width Not performed Normal 0.00-20.00 [facility] ([place]) Comment on above: Result Comment: MDW testing performed only on adult ER patients between the ages of 18-89 years. Performed By: #### A PTT, GFR, PRO, BMP, TROPHS #### [place] [address] Monocyte Distribution Width Not performed Normal 0.00-20.00 [facility] ([place] Comment on above: Result Comment: MDW testing performed only on adult ER patients between the ages of 18-89 years. Performed By: #### A PTT, GFR, PRO, BMP, TROPHS #### [address] [address] .NEUABSon 03-28-2022 Neutrophil, Absolute 4.2 10 3/mcL Normal 2.3-8.1 [facility] ([place] Comment on above: Performed By: #### A PTT, GFR, PRO, BMP, TROPHS #### [place] [address] Neutrophil, Absolute 5.0 10 3/mcL Normal 2.3-8.1 [facility] ([place] Comment on above: Performed By: #### A PTT, GFR, PRO, BMP, TROPHS #### [place] [id number] Margarita 03-28-2022 Ammonia 63 mcmol/l High 11-32 [facility] ([place] Comment on above: Result Comment: Spec imen slightly hemolyzed. Performed By: #### A PTT, GFR, PRO, BMP, TROPHS #### [address] [address] BMPon 03-28-2022 BUN/Creatinine Ratio 19.5 ratio Normal 10.0-22.0 [facility] ([place] Comment on above: Performed By: #### A PTT, GFR, PRO, BMP, TROPHS #### [place] [id number] Calcium [Mass/Vol] 9.5 mg/dL Normal 8.7-10.4 [facility] ([place]) Comment on above: Performed By: #### A PTT, GFR, PRO, BMP, TROPHS #### [place] [address] Chloride [Moles/Vol] 111 mmol/L High 98-110 [facility] ([place] Comment on above: Performed By: #### A PTT, GFR, PRO, BMP, TROPHS #### [place] [address] CO2 [Moles/Vol] 22 mmol/L Normal 22-32 [facility] ([place] Comment on above: Performed By: #### A PTT, GFR, PRO, BMP, TROPHS #### [place] [address] Creatinine [Mass/Vol] 0.77 mg/dL Normal 0.60-1.40 [facility] ([place] Comment on above: Performed By: #### A PTT, GFR, PRO, BMP, TROPHS #### [place] [address] Electrolyte Balance 11.0 mEq/L Normal 4.0-15.0 [facility] ([place] Comment on above: Performed By: #### A PTT, GFR, PRO, BMP, TROPHS #### [place] [id number] Glucose [Mass/Vol] 94 mg/dL Normal 82-115 [facility] ([place] Comment on above: Performed By: #### A PTT, GFR, PRO, BMP, TROPHS #### [place] [id number] Potassium [Moles/Vol] 4.0 mmol/L Normal 3.5-5.0 [facility] ([place] Comment on above: Result Comment: Spec imen slightly hemolyzed. Performed By: #### A PTT, GFR, PRO, BMP, TROPHS #### [place] [id number] Sodium [Moles/Vol] 144 mmol/L Normal 136-145 [facility] ([place] Comment on above: Performed By: #### A PTT, GFR, PRO, BMP, TROPHS #### [place] [id number] Urea nitrogen [Mass/Vol] 15.0 mg/dL Normal 8.0-22.0 [facility] ([place] Comment on above: Performed By: #### A PTT, GFR, PRO, BMP, TROPHS #### [place] [id number] CBCon 03-28-2022 Erythrocyte distribution width (RBC) [Ratio] 11.2 % Low 11.5-15.5 [facility] ([place] Comment on above: Performed By: #### G FR, BMP #### [place] [id number] Hematocrit (Bld) [Volume fraction] 38.1 % Low 40.0-52.0 [facility] ([place] Comment on above: Performed By: #### G FR, BMP #### [place] [id number] Hgb 13.4 G/dL Normal 13.0-17.5 [facility] [facility] ([place] Comment on above: Performed By: #### G FR, BMP #### [place] [id number] MCH (RBC) [Entitic mass] 33.4 pg High 27.0-33.0 [facility] ([place]) Comment on above: Performed By: #### G FR, BMP #### [place] [id number] MCHC 35.1 G/dL Normal 32.0-36.0 [facility] ([place] Comment on above: Performed By: #### G FR, BMP #### [address] [address] MCV (RBC) [Entitic vol] 95.0 fL Normal 81.0-100.0 [facility] ([place] Comment on above: Performed By: #### G FR, BMP #### [address] [address] Platelet 319 10 3/mcL Normal 150-450 [facility] ([place] Comment on above: Performed By: #### G FR, BMP #### [address] [address] Platelet mean volume (Bld) [Entitic vol] 8.1 fL Normal 6.4-10.5 [facility] ([place] Comment on above: Performed By: #### G FR, BMP #### [place] [id number] RBC 4.00 10 6/mcL Low 4.50-6.00 [facility] ([place] Comment on above: Performed By: #### G FR, BMP #### [address] [address] WBC 8.1 10 3/mcL Normal 4.5-10.8 [facility] ([place] Comment on above: Performed By: #### G FR, BMP #### [place] [address] Erythrocyte distribution width (RBC) [Ratio] 11.5 % Normal 11.5-15.5 [facility] ([place] Comment on above: Performed By: #### A PTT, GFR, PRO, BMP, TROPHS #### [address] [address] Hematocrit (Bld) [Volume fraction] 38.0 % Low 40.0-52.0 [facility] ([place] Comment on above: Performed By: #### A PTT, GFR, PRO, BMP, TROPHS #### [address] [address] Hgb 13.4 G/dL Normal 13.0-17.5 [facility] ([place] Comment on above: Performed By: #### A PTT, GFR, PRO, BMP, TROPHS #### [place] [address] MCH (RBC) [Entitic mass] 33.4 pg High 27.0-33.0 [facility] ([place] Comment on above: Performed By: #### A PTT, GFR, PRO, BMP, TROPHS #### [place] [address] MCHC 35.4 G/dL Normal 32.0-36.0 [facility] ([place] Comment on above: Performed By: #### A PTT, GFR, PRO, BMP, TROPHS #### [place] [address] MCV (RBC) [Entitic vol] 94.3 fL Normal 81.0-100.0 [facility] ([place] Comment on above: Performed By: #### A PTT, GFR, PRO, BMP, TROPHS #### [place] [address] Platelet 339 10 3/mcL Normal 150-450 [facility] ([place] Comment on above: Performed By: #### A PTT, GFR, PRO, BMP, TROPHS #### [place] [address] Platelet mean volume (Bld) [Entitic vol] 7.5 fL Normal 6.4-10.5 [facility] ([place] Comment on above: Performed By: #### A PTT, GFR, PRO, BMP, TROPHS #### [place] [address] RBC 4.03 10 6/mcL Low 4.50-6.00 [facility] ([place] Comment on above: Performed By: #### A PTT, GFR, PRO, BMP, TROPHS #### [place] [address] WBC 9.2 10 3/mcL Normal 4.5-10.8 [facility] ([place] Comment on above: Performed By: #### A PTT, GFR, PRO, BMP, TROPHS #### [address] [address] CKon 03-28-2022 CK [Catalytic activity/Vol] 118 U/L Normal 7-185 [facility] ([place] Comment on above: Result Comment: Spec imen slightly hemolyzed. Performed By: #### A PTT, GFR, PRO, BMP, TROPHS #### [address] [address] CMPon 03-28-2022 Albumin Level 3.4 G/dL Normal 3.2-4.8 [facility] ([place] Comment on above: Performed By: #### A PTT, GFR, PRO, BMP, TROPHS #### [address] [address] Albumin/Globulin [Mass ratio] 1.2 {ratio} Normal 0.9-1.6 [facility] ([place] Comment on above: Performed By: #### A PTT, GFR, PRO, BMP, TROPHS #### [address] [address] ALP [Catalytic activity/Vol] 92 U/L Normal 38-126 [facility] ([place] Comment on above: Performed By: #### A PTT, GFR, PRO, BMP, TROPHS #### [address] [address] ALT [Catalytic activity/Vol] 26 U/L Normal 12-55 [facility] ([place] Comment on above: Performed By: #### A PTT, GFR, PRO, BMP, TROPHS #### [address] [address] AST [Catalytic activity/Vol] 21 U/L Normal 8-34 [facility] ([place] Comment on above: Performed By: #### A PTT, GFR, PRO, BMP, TROPHS #### [place] [id number] Bili Total 1.10 mg/dL Normal 0.20-1.20 [facility] ([place] Comment on above: Result Comment: Use of this assay is not recommended for patients undergoing treatment with eltrombopag due to the potential for falsely elevated results. Performed By: #### A PTT, GFR, PRO, BMP, TROPHS #### [place] [address] BUN/Creatinine Ratio 21.7 ratio Normal 10.0-22.0 [facility] ([place] Comment on above: Performed By: #### A PTT, GFR, PRO, BMP, TROPHS #### [address] [address] Calcium [Mass/Vol] 9.4 mg/dL Normal 8.7-10.4 [facility] ([place] Comment on above: Performed By: #### A PTT, GFR, PRO, BMP, TROPHS #### [place] [id number] Chloride [Moles/Vol] 109 mmol/L Normal 98-110 [facility] ([place] Comment on above: Performed By: #### A PTT, GFR, PRO, BMP, TROPHS #### [place] [id number] CO2 [Moles/Vol] 23 mmol/L Normal 22-32 [facility] ([place] Comment on above: Performed By: #### A PTT, GFR, PRO, BMP, TROPHS #### [place] [address] Creatinine [Mass/Vol] 0.83 mg/dL Normal 0.60-1.40 [facility] ([place] Comment on above: Performed By: #### A PTT, GFR, PRO, BMP, TROPHS #### [place] [id number] Electrolyte Balance 12.0 mEq/L Normal 4.0-15.0 [facility] ([place] Comment on above: Performed By: #### A PTT, GFR, PRO, BMP, TROPHS #### [place] [id number] Globulin 2.8 G/dL Normal 1.5-3.8 [facility] ([place] Comment on above: Performed By: #### A PTT, GFR, PRO, BMP, TROPHS #### [place] [id number] Glucose [Mass/Vol] 109 mg/dL Normal 82-115 [facility] ([place] Comment on above: Performed By: #### A PTT, GFR, PRO, BMP, TROPHS #### [address] [address] Potassium [Moles/Vol] 3.7 mmol/L Normal 3.5-5.0 [facility] ([place] Comment on above: Result Comment: Spec imen slightly hemolyzed. Performed By: #### A PTT, GFR, PRO, BMP, TROPHS #### [address] [address] Sodium [Moles/Vol] 144 mmol/L Normal 136-145 [facility] ([place] Comment on above: Performed By: #### A PTT, GFR, PRO, BMP, TROPHS #### [address] [address] Total Protein 6.2 G/dL Normal 5.7-8.2 [facility] ([place] Comment on above: Result Comment: No te - New Reference Range in effect 20 Performed By: #### A PTT, GFR, PRO, BMP, TROPHS #### [address] [address] Urea nitrogen [Mass/Vol] 18.0 mg/dL Normal 8.0-22.0 [facility] ([place] Comment on above: Performed By: #### A PTT, GFR, PRO, BMP, TROPHS #### [address] [address] LABORATORYOrdered By: SYSTEM SYSTEM on 03-28-2022 Basophils [...] Lactic Acid Lvl 1.6 mmol/L Normal 0.2-2.0 [facility] ([place] Comment on above: Performed By: #### A PTT, GFR, PRO, BMP, TROPHS #### [place] [address] MGon 03-28-2022 Magnesium [Mass/Vol] 2.0 mg/dL Normal 1.6-2.4 [facility] ([place] Comment on above: Performed By: #### A PTT, GFR, PRO, BMP, TROPHS #### [address] [address] PBNPon 03-28-2022 Natriuretic peptide B (Bld) [Mass/Vol] 485 pg/mL Normal 0-900 [facility] ([place] Comment on above: Result Comment: NT-p roBNP results of less than 300 pg/mL effectively rules out acute congestive heart failure with 99% negative predictive value. Performed By: #### A PTT, GFR, PRO, BMP, TROPHS #### [address] [address] PROon 03-28-2022 INR Coag (PPP) [Relative time] 1.1 {INR} Normal [facility] ([place] Comment on above: Result Comment: The [employer] (CHEST, 1992, [id number]) recommended therapeutic range for oral anticoagulant therapy is: LOW RISK: Prophylaxis of venous thrombosis INR: 2.0-3.0 Treatment of pulmonary embolism 2.0-3.0 Prevention of systemic embolism 2.0-3.0 HIGH RISK: Mechanical prosthetic valves 2.5-3.5 Performed By: #### A PTT, GFR, PRO, BMP, TROPHS #### [address] [address] PT Coag (PPP) [Time] 13.3 s Normal 9.0-14.9 [facility] ([place]) Comment on above: Result Comment: Effe ctive 03/06/08, Protime results may be affected by some antibiotics (i.e. Ciprofloxacin, Azithromycin, Bactrim) which may potentiate the action of oral anticoagulants, with further increases in Protime/INR. Performed By: #### A PTT, GFR, PRO, BMP, TROPHS #### [address] [address] TROPHSon 03-28-2022 Troponin I High Sensitivity 16.13 ng/L Normal 0.00-54.00 [facility] ([place] Comment on above: Result Comment: If t he High Sensitive Troponin result is below the 99th percentile value (<45 ng/L) at the first blood draw, at least two additional blood samples should be drawn before results are interpreted as negative for AMI. Performed By: #### A PTT, GFR, PRO, BMP, TROPHS #### [address] [address] Troponin I High Sensitivity 20.88 ng/L Normal 0.00-54.00 [facility] ([place] Comment on above: Result Comment: If t he High Sensitive Troponin result is below the 99th percentile value (<45 ng/L) at the first blood draw, at least two additional blood samples should be drawn before results are interpreted as negative for AMI. Performed By: #### A PTT, GFR, PRO, BMP, TROPHS #### [place] [id number] TSHon 03-28-2022 TSH 4.308 mIU/mL Normal 0.550-4.780 [facility] ([place] Comment on above: Result Comment: No te - New Reference Range in effect 20 Performed By: #### A PTT, GFR, PRO, BMP, TROPHS #### [place] [address] XR CHEST 1 VIEWon 03-28-2022 XR CHEST [...] By: Keaton Moss Electronically signed By Palomo Jaquze MD Dictated Date: 03/28/2022 7:46:07 AM Prelim Date: 03/28/2022 8:06:05 AM Sign Date: 03/28/2022 8:06:05 AM Ordering Provider: NERY Crow [facility] ([place]) .Auto Diffon 03-27-2022 Basophil, Absolute 0.1 10 3/mcL Normal 0.0-0.3 [facility] ([place] Comment on above: Performed By: #### A PTT, GFR, PRO, BMP, TROPHS #### [address] [address] Basophils/100 WBC (Bld) 1.2 % Normal 0.0-2.5 [facility] ([place] Comment on above: Performed By: #### A PTT, GFR, PRO, BMP, TROPHS #### [address] [address] Eosinophil, Absolute 0.2 10 3/mcL Normal 0.0-0.7 [facility] ([place] Comment on above: Performed By: #### A PTT, GFR, PRO, BMP, TROPHS #### [address] [address] Eosinophils/100 WBC (Bld) 2.7 % Normal 0.0-6.0 [facility] ([place] Comment on above: Performed By: #### A PTT, GFR, PRO, BMP, TROPHS #### [address] [address] Lymphocyte, Absolute 1.5 10 3/mcL Normal 0.9-4.3 [facility] ([place] Comment on above: Performed By: #### A PTT, GFR, PRO, BMP, TROPHS #### [address] [address] Lymphocytes/100 WBC (Bld) 18.0 % Low 20.0-40.0 [facility] ([place] Comment on above: Performed By: #### A PTT, GFR, PRO, BMP, TROPHS #### [address] [address] Monocyte, Absolute 1.1 10 3/mcL Normal 0.1-1.4 [facility] ([place] Comment on above: Performed By: #### A PTT, GFR, PRO, BMP, TROPHS #### [address] [address] Monocytes/100 WBC (Bld) 12.8 % Normal 2.0-13.0 [facility] ([place] Comment on above: Performed By: #### A PTT, GFR, PRO, BMP, TROPHS #### [address] [address] Neutrophils/100 WBC (Bld) 65.3 % Normal 50.0-75.0 [facility] ([place] Comment on above: Performed By: #### A PTT, GFR, PRO, BMP, TROPHS #### [address] [address] .GFRon 03-27-2022 GFR >60 Normal [facility] ([place] Comment on above: Result Comment: GFR Population [...] A PTT, GFR, PRO, BMP, TROPHS #### [address] [address] GFR Non- >60 Normal [facility] ([place] Comment on above: Result Comment: GFR Population [...] A PTT, GFR, PRO, BMP, TROPHS #### [address] [address] .MDWon 03-27-2022 Monocyte Distribution Width 21.99 High 0.00-20.00 [facility] ([place] Comment on above: Result Comment: For adults in ED, MDW>20.0 may be associated with a higher risk of sepsis during the first 12hrs of hospital admission Performed By: #### A PTT, GFR, PRO, BMP, TROPHS #### [address] [address] .NEUABSon 03-27-2022 Neutrophil, Absolute 5.6 10 3/mcL Normal 2.3-8.1 [facility] ([place] Comment on above: Performed By: #### A PTT, GFR, PRO, BMP, TROPHS #### [place] [address] BMPon 03-27-2022 BUN/Creatinine Ratio 20.7 ratio Normal 10.0-22.0 [facility] ([place] Comment on above: Performed By: #### A PTT, GFR, PRO, BMP, TROPHS #### [place] [id number] Calcium [Mass/Vol] 10.4 mg/dL Normal 8.7-10.4 [facility] ([place] Comment on above: Performed By: #### A PTT, GFR, PRO, BMP, TROPHS #### [address] [address] Chloride [Moles/Vol] 107 mmol/L Normal 98-110 [facility] ([place] Comment on above: Performed By: #### A PTT, GFR, PRO, BMP, TROPHS #### [address] [address] CO2 [Moles/Vol] 22 mmol/L Normal 22-32 [facility] [place] Comment on above: Performed By: #### A PTT, GFR, PRO, BMP, TROPHS #### [address] [address] Creatinine [Mass/Vol] 0.92 mg/dL Normal 0.60-1.40 [facility] [place] Comment on above: Performed By: #### A PTT, GFR, PRO, BMP, TROPHS #### [place] [address] Electrolyte Balance 9.0 mEq/L Normal 4.0-15.0 [facility] ([place] Comment on above: Performed By: #### A PTT, GFR, PRO, BMP, TROPHS #### [place] [address] Glucose [Mass/Vol] 122 mg/dL High 82-115 [facility] ([place] Comment on above: Performed By: #### A PTT, GFR, PRO, BMP, TROPHS #### [place] [address] Potassium [Moles/Vol] 3.6 mmol/L Normal 3.5-5.0 [facility] [place] Comment on above: Performed By: #### A PTT, GFR, PRO, BMP, TROPHS #### [place] [id number] Sodium [Moles/Vol] 138 mmol/L Normal 136-145 [facility] ([place] Comment on above: Performed By: #### A PTT, GFR, PRO, BMP, TROPHS #### [place] [address] Urea nitrogen [Mass/Vol] 19.0 mg/dL Normal 8.0-22.0 [facility] ([place] Comment on above: Performed By: #### A PTT, GFR, PRO, BMP, TROPHS #### [address] [address] CBCon 03-27-2022 Erythrocyte distribution width (RBC) [Ratio] 11.6 % Normal 11.5-15.5 [facility] ([place] Comment on above: Performed By: #### A PTT, GFR, PRO, BMP, TROPHS #### [place] [id number] Hematocrit (Bld) [Volume fraction] 41.3 % Normal 40.0-52.0 [facility] ([place] Comment on above: Performed By: #### A PTT, GFR, PRO, BMP, TROPHS #### [place] [address] Hgb 14.7 G/dL Normal 13.0-17.5 [facility] ([place] Comment on above: Performed By: #### A PTT, GFR, PRO, BMP, TROPHS #### [place] [address] MCH (RBC) [Entitic mass] 33.5 pg High 27.0-33.0 [facility] ([place] Comment on above: Performed By: #### A PTT, GFR, PRO, BMP, TROPHS #### [place] [address] MCHC 35.7 G/dL Normal 32.0-36.0 [facility] ([place] Comment on above: Performed By: #### A PTT, GFR, PRO, BMP, TROPHS #### [place] [address] MCV (RBC) [Entitic vol] 94.0 fL Normal 81.0-100.0 [facility] ([place] Comment on above: Performed By: #### A PTT, GFR, PRO, BMP, TROPHS #### [place] [address] Platelet 370 10 3/mcL Normal 150-450 [facility] ([place] Comment on above: Performed By: #### A PTT, GFR, PRO, BMP, TROPHS #### [place] [address] Platelet mean volume (Bld) [Entitic vol] 8.1 fL Normal 6.4-10.5 [facility] ([place] Comment on above: Performed By: #### A PTT, GFR, PRO, BMP, TROPHS #### [place] [address] RBC 4.40 10 6/mcL Low 4.50-6.00 [facility] ([place] Comment on above: Performed By: #### A PTT, GFR, PRO, BMP, TROPHS #### [place] [id number] [place] [address] WBC 8.5 10 3/mcL Normal 4.5-10.8 [facility] ([place] Comment on above: Performed By: #### A PTT, GFR, PRO, BMP, TROPHS #### [place] [id number] [place] [address] HEAD OR BRAIN W/O CONTRAS Ton [...] 03/27/2022 1:03:24 PM Ordering Provider: KALEN Crow [facility] ([place] LABORATORYOrdered By: SYSTEM SYSTEM on 03-27-2022 Albumin [...] SS UAon 03-27-2022 Color (U) Yellow Normal [facility] ([place] Comment on above: Performed By: #### A PTT, GFR, PRO, BMP, TROPHS #### [address] [address] Glucose (U) [Mass/Vol] Negative Normal Negative [facility] ([place] Comment on above: Performed By: #### A PTT, GFR, PRO, BMP, TROPHS #### [address] [address] Ketones Ql (U) Trace Normal Neg-Trace [facility] ([place] Comment on above: Performed By: #### A PTT, GFR, PRO, BMP, TROPHS #### [address] [address] UA Appear Clear Normal Clear [facility] ([place] Comment on above: Performed By: #### A PTT, GFR, PRO, BMP, TROPHS #### [address] [address] UA Blood Negative Normal Neg-Trace [facility] [place] Comment on above: Performed By: #### A PTT, GFR, PRO, BMP, TROPHS #### [address] [address] UA Leuk Est Negative Normal Negative [facility] [place] Comment on above: Performed By: #### A PTT, GFR, PRO, BMP, TROPHS #### [address] [address] UA Nitrite Negative Normal Negative [facility] [place] Comment on above: Performed By: #### A PTT, GFR, PRO, BMP, TROPHS #### [address] [address] UA pH 6.5 Normal 5.0 - 8.0 [facility] ([place] Comment on above: Performed By: #### A PTT, GFR, PRO, BMP, TROPHS #### [address] [address] UA Protein 30 mg/dL Normal Negative [facility] ([place] Comment on above: Performed By: #### A PTT, GFR, PRO, BMP, TROPHS #### [address] [address] UA Spec Grav 1.020 Normal 1.006-1.029 [facility] ([place] Comment on above: Performed By: #### A PTT, GFR, PRO, BMP, TROPHS #### [address] [address] UA Specimen Type Catheter Normal [facility] ([place] Comment on above: Performed By: #### A PTT, GFR, PRO, BMP, TROPHS #### [address] [address] UA Urobilinogen 1.0 E.U./dL Normal 0.2-1.0 [facility] ([place] Comment on above: Performed By: #### A PTT, GFR, PRO, BMP, TROPHS #### [address] [address] Urobilinogen (U) [Mass/Vol] Negative Normal Neg-Trace [facility] ([place] Comment on above: Performed By: #### A PTT, GFR, PRO, BMP, TROPHS #### [address] [address] XR CHEST 1 VIEWon 03-27-2022 XR CHEST [...] 03/27/2022 1:19:45 PM Ordering Provider: KALEN Crow [facility] ([place] .Auto Diffon 03-16-2022 Basophil, Absolute 0.1 10 3/mcL Normal 0.0-0.3 [facility] ([place] Comment on above: Performed By: #### G FR, BMP #### [address] [address] Basophils/100 WBC (Bld) 0.9 % Normal 0.0-2.5 [facility] ([place] Comment on above: Performed By: #### G FR, BMP #### [address] [address] Eosinophil, Absolute 0.4 10 3/mcL Normal 0.0-0.7 [facility] ([place] Comment on above: Performed By: #### G FR, BMP #### [address] [address] Eosinophils/100 WBC (Bld) 4.4 % Normal 0.0-6.0 [facility] ([place] Comment on above: Performed By: #### G FR, BMP #### [address] [address] Lymphocyte, Absolute 2.1 10 3/mcL Normal 0.9-4.3 [facility] ([place] Comment on above: Performed By: #### G FR, BMP #### [address] [address] Lymphocytes/100 WBC (Bld) 24.4 % Normal 20.0-40.0 [facility] ([place] Comment on above: Performed By: #### G FR, BMP #### [address] [address] Monocyte, Absolute 0.9 10 3/mcL Normal 0.1-1.4 [facility] ([place] Comment on above: Performed By: #### G FR, BMP #### [address] [address] Monocytes/100 WBC (Bld) 10.9 % Normal 2.0-13.0 [facility] ([place] Comment on above: Performed By: #### G FR, BMP #### [address] [address] Neutrophils/100 WBC (Bld) 59.4 % Normal 50.0-75.0 [facility] ([place] Comment on above: Performed By: #### G FR, BMP #### [address] [address] .GFRon 03-16-2022 GFR Non- >60 Normal [facility] ([place] Comment on above: Result Comment: GFR Population [...] Performed By: #### G FR, BMP #### [address] [address] GFR >60 Normal [facility] ([place] Comment on above: Result Comment: GFR Population [...] Performed By: #### Roney FRIEND, BMP #### [address] [address] .MDWon 03-16-2022 Monocyte Distribution Width Not performed Normal 0.00-20.00 [facility] ([place] Comment on above: Result Comment: MDW testing performed only on adult ER patients between the ages of 18-89 years. Performed By: #### Roney FRIEND, BMP #### [address] [address] .NEUABSon 03-16-2022 Neutrophil, Absolute 5.1 10 3/mcL Normal 2.3-8.1 [facility] ([place] Comment on above: Performed By: #### Roney FRIEND, BMP #### [place] [address] BMPon 03-16-2022 BUN/Creatinine Ratio 18.2 ratio Normal 10.0-22.0 [facility] ([place] Comment on above: Performed By: #### Roney FRIEND, BMP #### [address] [address] Calcium [Mass/Vol] 9.3 mg/dL Normal 8.7-10.4 [facility] ([place] Comment on above: Performed By: #### Roney FRIEND, BMP #### [address] [address] Chloride [Moles/Vol] 108 mmol/L Normal 98-110 [facility] ([place] Comment on above: Performed By: #### G , BMP #### [address] [address] CO2 [Moles/Vol] 23 mmol/L Normal 22-32 [facility] ([place] Comment on above: Performed By: #### Roney FRIEND, BMP #### [address] [address] Creatinine [Mass/Vol] 0.77 mg/dL Normal 0.60-1.40 [facility] ([place] Comment on above: Performed By: #### Roney FRIEND, BMP #### [address] [address] Electrolyte Balance 8.0 mEq/L Normal 4.0-15.0 [facility] ([place] Comment on above: Performed By: #### Roney FRIEND, BMP #### [address] [address] Glucose [Mass/Vol] 90 mg/dL Normal 82-115 [facility] ([place] Comment on above: Performed By: #### Roney FRIEND, BMP #### [address] [address] Potassium [Moles/Vol] 4.3 mmol/L Normal 3.5-5.0 [facility] ([place] Comment on above: Result Comment: Spec imen slightly hemolyzed. Performed By: #### Roney FRIEND, BMP #### [address] [address] Sodium [Moles/Vol] 139 mmol/L Normal 136-145 [facility] ([place]) Comment on above: Performed By: #### Roney FRIEND, BMP #### [address] [address] Urea nitrogen [Mass/Vol] 14.0 mg/dL Normal 8.0-22.0 [facility] ([place]) Comment on above: Performed By: #### Roney FRIEND, BMP #### [address] [address] CBCon 03-16-2022 Erythrocyte distribution width (RBC) [Ratio] 11.7 % Normal 11.5-15.5 [facility] ([place]) Comment on above: Performed By: #### Roney FRIEND, BMP #### [place] [address] Hematocrit (Bld) [Volume fraction] 42.9 % Normal 40.0-52.0 [facility] ([place] Comment on above: Performed By: #### Roney FR, BMP #### [place] [address] Hgb 15.0 G/dL Normal 13.0-17.5 [facility] ([place] Comment on above: Performed By: #### Roney FRIEND, BMP #### [place] [address] MCH (RBC) [Entitic mass] 33.6 pg High 27.0-33.0 [facility] ([place] Comment on above: Performed By: #### Roney FRIEND, BMP #### [place] [address] MCHC 35.0 G/dL Normal 32.0-36.0 [facility] ([place] Comment on above: Performed By: #### Roney FRIEND, BMP #### [place] [address] MCV (RBC) [Entitic vol] 96.3 fL Normal 81.0-100.0 [facility] ([place] Comment on above: Performed By: #### Roney FRIEND, BMP #### [place] [address] Platelet 273 10 3/mcL Normal 150-450 [facility] ([place] Comment on above: Performed By: #### Roney FRIEND, BMP #### [place] [address] Platelet mean volume (Bld) [Entitic vol] 8.3 fL Normal 6.4-10.5 [facility] ([place] Comment on above: Performed By: #### Roney FR, BMP #### [place] [address] RBC 4.46 10 6/mcL Low 4.50-6.00 [facility] ([place] Comment on above: Performed By: #### Roney FR, BMP #### [address] [address] WBC 8.6 10 3/mcL Normal 4.5-10.8 [facility] ([place] Comment on above: Performed By: #### G , NADREW #### [address] [address] LABORATORYOrdered By: SYSTEM SYSTEM on 03-16-2022 Basophils [...] Basophil, Absolute 0.1 10 3/mcL Normal 0.0-0.3 [facility] ([place]) Comment on above: Performed By: #### A PTT, GFR, PRO, BMP, TROPHS #### [address] [address] Basophils/100 WBC (Bld) 0.6 % Normal 0.0-2.5 [facility] ([place] Comment on above: Performed By: #### A PTT, GFR, PRO, BMP, TROPHS #### [address] [address] Eosinophil, Absolute 0.3 10 3/mcL Normal 0.0-0.7 [facility] ([place]) Comment on above: Performed By: #### A PTT, GFR, PRO, BMP, TROPHS #### [address] [address] Eosinophils/100 WBC (Bld) 2.5 % Normal 0.0-6.0 [facility] ([place] Comment on above: Performed By: #### A PTT, GFR, PRO, BMP, TROPHS #### [address] [address] Lymphocyte, Absolute 2.0 10 3/mcL Normal 0.9-4.3 [facility] ([place] Comment on above: Performed By: #### A PTT, GFR, PRO, BMP, TROPHS #### [address] [address] Lymphocytes/100 WBC (Bld) 17.9 % Low 20.0-40.0 [facility] ([place] Comment on above: Performed By: #### A PTT, GFR, PRO, BMP, TROPHS #### [address] [address] Monocyte, Absolute 1.0 10 3/mcL Normal 0.1-1.4 [facility] ([place] Comment on above: Performed By: #### A PTT, GFR, PRO, BMP, TROPHS #### [address] [address] Monocytes/100 WBC (Bld) 9.2 % Normal 2.0-13.0 [facility] ([place] Comment on above: Performed By: #### A PTT, GFR, PRO, BMP, TROPHS #### [address] [address] Neutrophils/100 WBC (Bld) 69.8 % Normal 50.0-75.0 [facility] ([place] Comment on above: Performed By: #### A PTT, GFR, PRO, BMP, TROPHS #### [address] [address] .GFRon 03-15-2022 GFR Non- >60 Normal [facility] ([place] Comment on above: Result Comment: GFR Population [...] Performed By: #### G FR, BMP #### [address] [address] GFR >60 Normal [facility] ([place] Comment on above: Result Comment: GFR Population [...] Performed By: #### G FR, BMP #### [place] [address] .MDWon 03-15-2022 Monocyte Distribution Width Not performed Normal 0.00-20.00 [facility] ([place] Comment on above: Result Comment: MDW testing performed only on adult ER patients between the ages of 18-89 years. Performed By: #### A PTT, GFR, PRO, BMP, TROPHS #### [place] [address] .NEUABSon 03-15-2022 Neutrophil, Absolute 7.6 10 3/mcL Normal 2.3-8.1 [facility] ([place]) Comment on above: Performed By: #### A PTT, GFR, PRO, BMP, TROPHS #### [place] [address] CBCon 03-15-2022 Erythrocyte distribution width (RBC) [Ratio] 11.9 % Normal 11.5-15.5 [facility] ([place] Comment on above: Performed By: #### A PTT, GFR, PRO, BMP, TROPHS #### [place] [address] Hematocrit (Bld) [Volume fraction] 44.8 % Normal 40.0-52.0 [facility] ([place] Comment on above: Performed By: #### A PTT, GFR, PRO, BMP, TROPHS #### [place] [address] Hgb 15.7 G/dL Normal 13.0-17.5 [facility] ([place] Comment on above: Performed By: #### A PTT, GFR, PRO, BMP, TROPHS #### [place] [address] MCH (RBC) [Entitic mass] 33.4 pg High 27.0-33.0 [facility] ([place] Comment on above: Performed By: #### A PTT, GFR, PRO, BMP, TROPHS #### [place] [address] MCHC 35.1 G/dL Normal 32.0-36.0 [facility] ([place] Comment on above: Performed By: #### A PTT, GFR, PRO, BMP, TROPHS #### [place] [address] MCV (RBC) [Entitic vol] 95.2 fL Normal 81.0-100.0 [facility] ([place] Comment on above: Performed By: #### A PTT, GFR, PRO, BMP, TROPHS #### [place] [address] Platelet 279 10 3/mcL Normal 150-450 [facility] ([place] Comment on above: Performed By: #### A PTT, GFR, PRO, BMP, TROPHS #### [place] [address] Platelet mean volume (Bld) [Entitic vol] 8.1 fL Normal 6.4-10.5 [facility] ([place] Comment on above: Performed By: #### A PTT, GFR, PRO, BMP, TROPHS #### [place] [id number] RBC 4.71 10 6/mcL Normal 4.50-6.00 [facility] ([place] Comment on above: Performed By: #### A PTT, GFR, PRO, BMP, TROPHS #### [place] [id number] WBC 10.9 10 3/mcL High 4.5-10.8 [facility] ([place] Comment on above: Performed By: #### A PTT, GFR, PRO, BMP, TROPHS #### [place] [address] CMPon 03-15-2022 Albumin Level 3.7 G/dL Normal 3.2-4.8 [facility] ([place] Comment on above: Performed By: #### A PTT, GFR, PRO, BMP, TROPHS #### [address] [address] Albumin/Globulin [Mass ratio] 1.3 {ratio} Normal 0.9-1.6 [facility] ([place] Comment on above: Performed By: #### A PTT, GFR, PRO, BMP, TROPHS #### [place] [id number] ALP [Catalytic activity/Vol] 90 U/L Normal 38-126 [facility] ([place] Comment on above: Performed By: #### A PTT, GFR, PRO, BMP, TROPHS #### [place] [id number] ALT [Catalytic activity/Vol] 22 U/L Normal 12-55 [facility] ([place] Comment on above: Performed By: #### A PTT, GFR, PRO, BMP, TROPHS #### [place] [id number] AST [Catalytic activity/Vol] 19 U/L Normal 8-34 [facility] [place] Comment on above: Performed By: #### A PTT, GFR, PRO, BMP, TROPHS #### [place] [id number] Bili Total 1.60 mg/dL High 0.20-1.20 [facility] ([place] Comment on above: Result Comment: Use of this assay is not recommended for patients undergoing treatment with eltrombopag due to the potential for falsely elevated results. Performed By: #### A PTT, GFR, PRO, BMP, TROPHS #### [place] [id number] BUN/Creatinine Ratio 18.9 ratio Normal 10.0-22.0 [facility] ([place] Comment on above: Performed By: #### A PTT, GFR, PRO, BMP, TROPHS #### [place] [id number] Calcium [Mass/Vol] 9.7 mg/dL Normal 8.7-10.4 [facility] ([place] Comment on above: Performed By: #### A PTT, GFR, PRO, BMP, TROPHS #### [address] [address] Chloride [Moles/Vol] 108 mmol/L Normal 98-110 [facility] ([place] Comment on above: Performed By: #### A PTT, GFR, PRO, BMP, TROPHS #### [address] [address] CO2 [Moles/Vol] 23 mmol/L Normal 22-32 [facility] [place] Comment on above: Performed By: #### A PTT, GFR, PRO, BMP, TROPHS #### [address] [address] Creatinine [Mass/Vol] 0.74 mg/dL Normal 0.60-1.40 [facility] ([place] Comment on above: Performed By: #### A PTT, GFR, PRO, BMP, TROPHS #### [address] [address] Electrolyte Balance 9.0 mEq/L Normal 4.0-15.0 [facility] ([place] Comment on above: Performed By: #### A PTT, GFR, PRO, BMP, TROPHS #### [address] [address] Globulin 2.9 G/dL Normal 1.5-3.8 [facility] ([place] Comment on above: Performed By: #### A PTT, GFR, PRO, BMP, TROPHS #### [address] [address] Glucose [Mass/Vol] 100 mg/dL Normal 82-115 [facility] ([place] Comment on above: Performed By: #### A PTT, GFR, PRO, BMP, TROPHS #### [address] [address] Potassium [Moles/Vol] 4.0 mmol/L Normal 3.5-5.0 [facility] ([place] Comment on above: Performed By: #### A PTT, GFR, PRO, BMP, TROPHS #### [address] [address] Sodium [Moles/Vol] 140 mmol/L Normal 136-145 [facility] ([place] Comment on above: Performed By: #### A PTT, GFR, PRO, BMP, TROPHS #### [address] [address] Total Protein 6.6 G/dL Normal 5.7-8.2 [facility] ([place] Comment on above: Result Comment: No te - New Reference Range in effect 20 Performed By: #### A PTT, GFR, PRO, BMP, TROPHS #### [address] [address] Urea nitrogen [Mass/Vol] 14.0 mg/dL Normal 8.0-22.0 [facility] ([place] Comment on above: Performed By: #### A PTT, GFR, PRO, BMP, TROPHS #### [address] [address] LABORATORYOrdered By: SYSTEM SYSTEM on 03-15-2022 Albumin [...] 03-15-2022 Magnesium [Mass/Vol] 1.9 mg/dL Normal 1.6-2.4 [facility] ([place] Comment on above: Performed By: #### A PTT, GFR, PRO, BMP, TROPHS #### [address] [address] .Auto Diffon 03-14-2022 Basophil, Absolute 0.1 10 3/mcL Normal 0.0-0.3 [facility] ([place] Comment on above: Performed By: #### A PTT, GFR, PRO, BMP, TROPHS #### [address] [address] Basophils/100 WBC (Bld) 0.8 % Normal 0.0-2.5 [facility] ([place]) Comment on above: Performed By: #### A PTT, GFR, PRO, BMP, TROPHS #### [address] [address] Eosinophil, Absolute 0.4 10 3/mcL Normal 0.0-0.7 [facility] ([place]) Comment on above: Performed By: #### A PTT, GFR, PRO, BMP, TROPHS #### [address] [address] Eosinophils/100 WBC (Bld) 4.1 % Normal 0.0-6.0 [facility] ([place]) Comment on above: Performed By: #### A PTT, GFR, PRO, BMP, TROPHS #### [address] [address] Lymphocyte, Absolute 2.1 10 3/mcL Normal 0.9-4.3 [facility] ([place]) Comment on above: Performed By: #### A PTT, GFR, PRO, BMP, TROPHS #### [address] [address] Lymphocytes/100 WBC (Bld) 22.2 % Normal 20.0-40.0 [facility] ([place]) Comment on above: Performed By: #### A PTT, GFR, PRO, BMP, TROPHS #### [address] [address] Monocyte, Absolute 0.9 10 3/mcL Normal 0.1-1.4 [facility] ([place]) Comment on above: Performed By: #### A PTT, GFR, PRO, BMP, TROPHS #### [address] [address] Monocytes/100 WBC (Bld) 9.5 % Normal 2.0-13.0 [facility] ([place] Comment on above: Performed By: #### A PTT, GFR, PRO, BMP, TROPHS #### [address] [address] Neutrophils/100 WBC (Bld) 63.4 % Normal 50.0-75.0 [facility] ([place] Comment on above: Performed By: #### A PTT, GFR, PRO, BMP, TROPHS #### [address] [address] .GFRon 03-14-2022 GFR >60 Normal [facility] ([place] Comment on above: Result Comment: GFR Population [...] A PTT, GFR, PRO, BMP, TROPHS #### [address] [address] GFR Non- >60 Normal [facility] ([place] Comment on above: Result Comment: GFR Population [...] A PTT, GFR, PRO, BMP, TROPHS #### [address] [address] .MDWon 03-14-2022 Monocyte Distribution Width Not performed Normal 0.00-20.00 [facility] ([place] Comment on above: Result Comment: MDW testing performed only on adult ER patients between the ages of 18-89 years. Performed By: #### A PTT, GFR, PRO, BMP, TROPHS #### [address] [address] .NEUABSon 03-14-2022 Neutrophil, Absolute 5.9 10 3/mcL Normal 2.3-8.1 [facility] ([place]) Comment on above: Performed By: #### A PTT, GFR, PRO, BMP, TROPHS #### [address] [address] BMPon 03-14-2022 BUN/Creatinine Ratio 22.4 ratio High 10.0-22.0 [facility] ([place] Comment on above: Performed By: #### A PTT, GFR, PRO, BMP, TROPHS #### [address] [address] Calcium [Mass/Vol] 10.1 mg/dL Normal 8.7-10.4 [facility] ([place] Comment on above: Performed By: #### A PTT, GFR, PRO, BMP, TROPHS #### [address] [address] Chloride [Moles/Vol] 110 mmol/L Normal 98-110 [facility] ([place] Comment on above: Performed By: #### A PTT, GFR, PRO, BMP, TROPHS #### [address] [address] CO2 [Moles/Vol] 22 mmol/L Normal 22-32 [facility] ([place] Comment on above: Performed By: #### A PTT, GFR, PRO, BMP, TROPHS #### [address] [address] Creatinine [Mass/Vol] 0.76 mg/dL Normal 0.60-1.40 [facility] ([place] Comment on above: Performed By: #### A PTT, GFR, PRO, BMP, TROPHS #### [address] [address] Electrolyte Balance 11.0 mEq/L Normal 4.0-15.0 [facility] ([place] Comment on above: Performed By: #### A PTT, GFR, PRO, BMP, TROPHS #### [address] [address] Glucose [Mass/Vol] 101 mg/dL Normal 82-115 [facility] ([place] Comment on above: Performed By: #### A PTT, GFR, PRO, BMP, TROPHS #### [place] [address] Potassium [Moles/Vol] 3.9 mmol/L Normal 3.5-5.0 [facility] ([place] Comment on above: Result Comment: Spec imen slightly hemolyzed. Performed By: #### A PTT, GFR, PRO, BMP, TROPHS #### [place] [id number] Sodium [Moles/Vol] 143 mmol/L Normal 136-145 [facility] ([place] Comment on above: Performed By: #### A PTT, GFR, PRO, BMP, TROPHS #### [address] [address] Urea nitrogen [Mass/Vol] 17.0 mg/dL Normal 8.0-22.0 [facility] ([place] Comment on above: Performed By: #### A PTT, GFR, PRO, BMP, TROPHS #### [address] [address] CBCon 03-14-2022 Erythrocyte distribution width (RBC) [Ratio] 11.8 % Normal 11.5-15.5 [facility] ([place] Comment on above: Performed By: #### A PTT, GFR, PRO, BMP, TROPHS #### [place] [id number] Hematocrit (Bld) [Volume fraction] 45.4 % Normal 40.0-52.0 [facility] ([place] Comment on above: Performed By: #### A PTT, GFR, PRO, BMP, TROPHS #### [place] [address] Hgb 15.7 G/dL Normal 13.0-17.5 [facility] ([place] Comment on above: Performed By: #### A PTT, GFR, PRO, BMP, TROPHS #### [place] [address] MCH (RBC) [Entitic mass] 33.5 pg High 27.0-33.0 [facility] ([place] Comment on above: Performed By: #### A PTT, GFR, PRO, BMP, TROPHS #### [place] [address] MCHC 34.6 G/dL Normal 32.0-36.0 [facility] ([place] Comment on above: Performed By: #### A PTT, GFR, PRO, BMP, TROPHS #### [place] [address] MCV (RBC) [Entitic vol] 96.8 fL Normal 81.0-100.0 [facility] ([place] Comment on above: Performed By: #### A PTT, GFR, PRO, BMP, TROPHS #### [place] [address] Platelet 272 10 3/mcL Normal 150-450 [facility] ([place] Comment on above: Performed By: #### A PTT, GFR, PRO, BMP, TROPHS #### [place] [address] Platelet mean volume (Bld) [Entitic vol] 7.9 fL Normal 6.4-10.5 [facility] ([place] Comment on above: Performed By: #### A PTT, GFR, PRO, BMP, TROPHS #### [place] [address] RBC 4.69 10 6/mcL Normal 4.50-6.00 [facility] ([place] Comment on above: Performed By: #### A PTT, GFR, PRO, BMP, TROPHS #### [address] [address] WBC 9.4 10 3/mcL Normal 4.5-10.8 [facility] ([place] Comment on above: Performed By: #### A PTT, GFR, PRO, BMP, TROPHS #### [address] [address] [address] HEAD OR BRAIN W/O CONTRAS Ton [...] 03/14/2022 7:01:39 PM Ordering Provider: KUNAAL ERIC [facility] ([place] CVFLURVon 03-14-2022 Date of Onset [id number] Invalid Interpretation Code [facility] ([place] Comment on above: Performed By: #### A PTT, GFR, PRO, BMP, TROPHS #### [place] [address] Employed in Healthcare No [facility] [place] Comment on above: Performed By: #### A PTT, GFR, PRO, BMP, TROPHS #### [place] [address] First Test No [facility] ([place] Comment on above: Performed By: #### A PTT, GFR, PRO, BMP, TROPHS #### [place] [address] FLU A PCR Negative Normal Negative [facility] [place] Comment on above: Result Comment: [place] [id number] Performed By: #### A PTT, GFR, PRO, BMP, TROPHS #### [place] [address] FLU B PCR Negative Normal Negative [facility] [place] Comment on above: Result Comment: [place] [id number] Performed By: #### A PTT, GFR, PRO, BMP, TROPHS #### [place] [address] Hospitalized Yes [facility] [place] Comment on above: Performed By: #### A PTT, GFR, PRO, BMP, TROPHS #### [place] [address] ICU No [facility] [place] Comment on above: Performed By: #### A PTT, GFR, PRO, BMP, TROPHS #### [place] [address] Not [facility] [place] Comment on above: Performed By: #### A PTT, GFR, PRO, BMP, TROPHS #### [place] [address] Resides in Congregate Care Setting No [facility] [place] Comment on above: Performed By: #### A PTT, GFR, PRO, BMP, TROPHS #### [facility] [address] [place], [place] [address] RSV PCR Negative Normal Negative [facility] ([place] Comment on above: Result Comment: [place] [id number] Performed By: #### A PTT, GFR, PRO, BMP, TROPHS #### [place] [id number] SARS-CoV-2 (COVID-19) RNA ALEIDA+probe Ql (Unsp spec) Negative Normal Negative [facility] ([place] Comment on above: Result Comment: Note s [id number] This test has been authorized by FDA [...] A PTT, GFR, PRO, BMP, TROPHS #### [place] [id number] Symptomatic as Defined by CDC No Normal [facility] ([place] Comment on above: Performed By: #### A PTT, GFR, PRO, BMP, TROPHS #### [place] [address] LABORATORYOrdered By: Lore schmidt on 03-14-2022 Date [...] Comment on above: Result Comment: [place] [id number] FLU B PCR Negative 9 (03/14/22 5:28 PM) Invalid Interpretation Code Negative [facility] Comment on above: Result Comment: [place] [id number] Hospitalized Yes (03/14/22 5:28 PM) Invalid Interpretation [...] Comment on above: Result Comment: Note s [id number] SARS-CoV-2 (COVID-19) RNA ALEIDA+probe Ql (Unsp spec) Negative 7 (03/14/22 5:28 PM) Invalid Interpretation Code Negative [facility] SS Comment on above: Result Comment: [place] [id number] Symptomatic as Defined by CDC No (03/14/22 [...] 03-14-2022 Magnesium [Mass/Vol] 2.0 mg/dL Normal 1.6-2.4 [facility] ([place] Comment on above: Performed By: #### A PTT, GFR, PRO, BMP, TROPHS #### [address] [address] .Auto Diffon 03-13-2022 Basophil, Absolute 0.1 10 3/mcL Normal 0.0-0.3 [facility] ([place] Comment on above: Performed By: #### A PTT, GFR, PRO, BMP, TROPHS #### [address] [address] Basophils/100 WBC (Bld) 0.9 % Normal 0.0-2.5 [facility] ([place] Comment on above: Performed By: #### A PTT, GFR, PRO, BMP, TROPHS #### [address] [address] Eosinophil, Absolute 0.4 10 3/mcL Normal 0.0-0.7 [facility] ([place]) Comment on above: Performed By: #### A PTT, GFR, PRO, BMP, TROPHS #### [address] [address] Eosinophils/100 WBC (Bld) 4.2 % Normal 0.0-6.0 [facility] ([place]) Comment on above: Performed By: #### A PTT, GFR, PRO, BMP, TROPHS #### [address] [address] Lymphocyte, Absolute 2.4 10 3/mcL Normal 0.9-4.3 [facility] ([place]) Comment on above: Performed By: #### A PTT, GFR, PRO, BMP, TROPHS #### [address] [address] Lymphocytes/100 WBC (Bld) 25.9 % Normal 20.0-40.0 [facility] ([place] Comment on above: Performed By: #### A PTT, GFR, PRO, BMP, TROPHS #### [address] [address] Monocyte, Absolute 1.1 10 3/mcL Normal 0.1-1.4 [facility] ([place] Comment on above: Performed By: #### A PTT, GFR, PRO, BMP, TROPHS #### [address] [address] Monocytes/100 WBC (Bld) 11.6 % Normal 2.0-13.0 [facility] ([place] Comment on above: Performed By: #### A PTT, GFR, PRO, BMP, TROPHS #### [address] [address] Neutrophils/100 WBC (Bld) 57.4 % Normal 50.0-75.0 [facility] ([place] Comment on above: Performed By: #### A PTT, GFR, PRO, BMP, TROPHS #### [address] [address] .GFRon 03-13-2022 GFR >60 Normal [facility] ([place] Comment on above: Result Comment: GFR Population [...] A PTT, GFR, PRO, BMP, TROPHS #### [address] [address] GFR Non- >60 Normal [facility] ([place] Comment on above: Result Comment: GFR Population [...] A PTT, GFR, PRO, BMP, TROPHS #### [address] [address] .MDWon 03-13-2022 Monocyte Distribution Width Not performed Normal 0.00-20.00 [facility] ([place] Comment on above: Result Comment: MDW testing performed only on adult ER patients between the ages of 18-89 years. Performed By: #### A PTT, GFR, PRO, BMP, TROPHS #### [address] [address] .NEUABSon 03-13-2022 Neutrophil, Absolute 5.3 10 3/mcL Normal 2.3-8.1 [facility] ([place]) Comment on above: Performed By: #### A PTT, GFR, PRO, BMP, TROPHS #### [place] [address] A1Con 03-13-2022 HbA1c (Bld) [Mass fraction] 5.3 % Normal 4.0-6.0 [facility] ([place] Comment on above: Performed By: #### A PTT, GFR, PRO, BMP, TROPHS #### [place] [id number] BMPon 03-13-2022 BUN/Creatinine Ratio 20.7 ratio Normal 10.0-22.0 [facility] ([place] Comment on above: Performed By: #### A PTT, GFR, PRO, BMP, TROPHS #### [place] [address] Calcium [Mass/Vol] 10.2 mg/dL Normal 8.7-10.4 [facility] ([place] Comment on above: Performed By: #### A PTT, GFR, PRO, BMP, TROPHS #### [place] [address] Chloride [Moles/Vol] 111 mmol/L High 98-110 [facility] ([place]) Comment on above: Performed By: #### A PTT, GFR, PRO, BMP, TROPHS #### [place] [id number] CO2 [Moles/Vol] 21 mmol/L Low 22-32 [facility] ([place]) Comment on above: Performed By: #### A PTT, GFR, PRO, BMP, TROPHS #### [address] [address] Creatinine [Mass/Vol] 0.82 mg/dL Normal 0.60-1.40 [facility] ([place]) Comment on above: Performed By: #### A PTT, GFR, PRO, BMP, TROPHS #### [address] [address] Electrolyte Balance 14.0 mEq/L Normal 4.0-15.0 [facility] ([place]) Comment on above: Performed By: #### A PTT, GFR, PRO, BMP, TROPHS #### [place] [id number] Glucose [Mass/Vol] 106 mg/dL Normal 82-115 [facility] ([place]) Comment on above: Performed By: #### A PTT, GFR, PRO, BMP, TROPHS #### [place] [address] Potassium [Moles/Vol] 4.3 mmol/L Normal 3.5-5.0 [facility] ([place] Comment on above: Result Comment: Spec imen slightly hemolyzed. Performed By: #### A PTT, GFR, PRO, BMP, TROPHS #### [place] [id number] Sodium [Moles/Vol] 146 mmol/L High 136-145 [facility] ([place]) Comment on above: Performed By: #### A PTT, GFR, PRO, BMP, TROPHS #### [place] [address] Urea nitrogen [Mass/Vol] 17.0 mg/dL Normal 8.0-22.0 [facility] ([place] Comment on above: Performed By: #### A PTT, GFR, PRO, BMP, TROPHS #### [address] [address] CBCon 03-13-2022 Erythrocyte distribution width (RBC) [Ratio] 11.9 % Normal 11.5-15.5 [facility] ([place] Comment on above: Performed By: #### A PTT, GFR, PRO, BMP, TROPHS #### [place] [address] Hematocrit (Bld) [Volume fraction] 49.1 % Normal 40.0-52.0 [facility] ([place] Comment on above: Performed By: #### A PTT, GFR, PRO, BMP, TROPHS #### [place] [address] Hgb 17.0 G/dL Normal 13.0-17.5 [facility] ([place] Comment on above: Performed By: #### A PTT, GFR, PRO, BMP, TROPHS #### [place] [address] MCH (RBC) [Entitic mass] 33.9 pg High 27.0-33.0 [facility] ([place] Comment on above: Performed By: #### A PTT, GFR, PRO, BMP, TROPHS #### [place] [address] MCHC 34.7 G/dL Normal 32.0-36.0 [facility] ([place] Comment on above: Performed By: #### A PTT, GFR, PRO, BMP, TROPHS #### [place] [address] MCV (RBC) [Entitic vol] 97.7 fL Normal 81.0-100.0 [facility] ([place] Comment on above: Performed By: #### A PTT, GFR, PRO, BMP, TROPHS #### [place] [id number] Platelet 271 10 3/mcL Normal 150-450 [facility] ([place] Comment on above: Performed By: #### A PTT, GFR, PRO, BMP, TROPHS #### [place] [address] Platelet mean volume (Bld) [Entitic vol] 7.9 fL Normal 6.4-10.5 [facility] ([place] Comment on above: Performed By: #### A PTT, GFR, PRO, BMP, TROPHS #### [place] [address] RBC 5.02 10 6/mcL Normal 4.50-6.00 [facility] ([place]) Comment on above: Performed By: #### A PTT, GFR, PRO, BMP, TROPHS #### [address] [address] WBC 9.2 10 3/mcL Normal 4.5-10.8 [facility] ([place] Comment on above: Performed By: #### A PTT, GFR, PRO, BMP, TROPHS #### [place] [id number] [place] [address] HEAD OR BRAIN W/O CONTRAS Ton [...] 03/13/2022 10:19:45 AM Ordering Provider: GERA Crow [facility] ([place]) LABORATORYOrdered By: [employer] on 03-13-2022 HbA1c (Bld) [Mass fraction] [...] 03-13-2022 Magnesium [Mass/Vol] 1.9 mg/dL Normal 1.6-2.4 [facility] ([place]) Comment on above: Performed By: #### A PTT, GFR, PRO, BMP, TROPHS #### [address] [address] .Auto Diffon 03-12-2022 Basophil, Absolute 0.1 10 3/mcL Normal 0.0-0.3 [facility] ([place]) Comment on above: Performed By: #### A PTT, GFR, PRO, BMP, TROPHS #### [address] [address] Basophils/100 WBC (Bld) 1.5 % Normal 0.0-2.5 [facility] ([place] Comment on above: Performed By: #### A PTT, GFR, PRO, BMP, TROPHS #### [address] [address] Eosinophil, Absolute 0.4 10 3/mcL Normal 0.0-0.7 [facility] ([place]) Comment on above: Performed By: #### A PTT, GFR, PRO, BMP, TROPHS #### [address] [address] Eosinophils/100 WBC (Bld) 5.0 % Normal 0.0-6.0 [facility] ([place] Comment on above: Performed By: #### A PTT, GFR, PRO, BMP, TROPHS #### [address] [address] Lymphocyte, Absolute 2.4 10 3/mcL Normal 0.9-4.3 [facility] ([place]) Comment on above: Performed By: #### A PTT, GFR, PRO, BMP, TROPHS #### [address] [address] Lymphocytes/100 WBC (Bld) 29.6 % Normal 20.0-40.0 [facility] ([place] Comment on above: Performed By: #### A PTT, GFR, PRO, BMP, TROPHS #### [address] [address] Monocyte, Absolute 1.0 10 3/mcL Normal 0.1-1.4 [facility] ([place]) Comment on above: Performed By: #### A PTT, GFR, PRO, BMP, TROPHS #### [address] [address] Monocytes/100 WBC (Bld) 12.6 % Normal 2.0-13.0 [facility] ([place] Comment on above: Performed By: #### A PTT, GFR, PRO, BMP, TROPHS #### [address] [address] Neutrophils/100 WBC (Bld) 51.3 % Normal 50.0-75.0 [facility] ([place] Comment on above: Performed By: #### A PTT, GFR, PRO, BMP, TROPHS #### [address] [address] .GFRon 03-12-2022 GFR Non- >60 Normal [facility] ([place] Comment on above: Result Comment: GFR Population [...] A PTT, GFR, PRO, BMP, TROPHS #### [address] [address] GFR >60 Normal [facility] ([place]) Comment on above: Result Comment: GFR Population [...] A PTT, GFR, PRO, BMP, TROPHS #### [address] [address] .MDWon 03-12-2022 Monocyte Distribution Width Not performed Normal 0.00-20.00 [facility] ([place] Comment on above: Result Comment: MDW testing performed only on adult ER patients between the ages of 18-89 years. Performed By: #### A PTT, GFR, PRO, BMP, TROPHS #### [address] [address] .NEUABSon 03-12-2022 Neutrophil, Absolute 4.3 10 3/mcL Normal 2.3-8.1 [facility] ([place]) Comment on above: Performed By: #### A PTT, GFR, PRO, BMP, TROPHS #### [address] [address] BMPon 03-12-2022 BUN/Creatinine Ratio 19.7 ratio Normal 10.0-22.0 [facility] ([place] Comment on above: Performed By: #### A PTT, GFR, PRO, BMP, TROPHS #### [address] [address] Calcium [Mass/Vol] 10.2 mg/dL Normal 8.7-10.4 [facility] ([place]) Comment on above: Performed By: #### A PTT, GFR, PRO, BMP, TROPHS #### [address] [address] Chloride [Moles/Vol] 108 mmol/L Normal 98-110 [facility] ([place] Comment on above: Performed By: #### A PTT, GFR, PRO, BMP, TROPHS #### [address] [address] CO2 [Moles/Vol] 22 mmol/L Normal 22-32 [facility] ([place] Comment on above: Performed By: #### A PTT, GFR, PRO, BMP, TROPHS #### [address] [address] Creatinine [Mass/Vol] 0.76 mg/dL Normal 0.60-1.40 [facility] ([place] Comment on above: Performed By: #### A PTT, GFR, PRO, BMP, TROPHS #### [address] [address] Electrolyte Balance 11.0 mEq/L Normal 4.0-15.0 [facility] ([place] Comment on above: Performed By: #### A PTT, GFR, PRO, BMP, TROPHS #### [address] [address] Glucose [Mass/Vol] 99 mg/dL Normal 82-115 [facility] ([place]) Comment on above: Performed By: #### A PTT, GFR, PRO, BMP, TROPHS #### [address] [address] Potassium [Moles/Vol] 3.9 mmol/L Normal 3.5-5.0 [facility] ([place] Comment on above: Result Comment: Spec imen slightly hemolyzed. Performed By: #### A PTT, GFR, PRO, BMP, TROPHS #### [address] [address] Sodium [Moles/Vol] 141 mmol/L Normal 136-145 [facility] ([place]) Comment on above: Performed By: #### A PTT, GFR, PRO, BMP, TROPHS #### [address] [address] Urea nitrogen [Mass/Vol] 15.0 mg/dL Normal 8.0-22.0 [facility] ([place] Comment on above: Performed By: #### A PTT, GFR, PRO, BMP, TROPHS #### [address] [address] CBCon 03-12-2022 Erythrocyte distribution width (RBC) [Ratio] 11.9 % Normal 11.5-15.5 [facility] ([place] Comment on above: Performed By: #### A PTT, GFR, PRO, BMP, TROPHS #### [place] [address] Hematocrit (Bld) [Volume fraction] 47.4 % Normal 40.0-52.0 [facility] ([place] Comment on above: Performed By: #### A PTT, GFR, PRO, BMP, TROPHS #### [place] [address] Hgb 16.5 G/dL Normal 13.0-17.5 [facility] ([place] Comment on above: Performed By: #### A PTT, GFR, PRO, BMP, TROPHS #### [place] [address] MCH (RBC) [Entitic mass] 33.4 pg High 27.0-33.0 [facility] ([place] Comment on above: Performed By: #### A PTT, GFR, PRO, BMP, TROPHS #### [place] [address] MCHC 34.7 G/dL Normal 32.0-36.0 [facility] ([place] Comment on above: Performed By: #### A PTT, GFR, PRO, BMP, TROPHS #### [place] [address] MCV (RBC) [Entitic vol] 96.2 fL Normal 81.0-100.0 [facility] ([place] Comment on above: Performed By: #### A PTT, GFR, PRO, BMP, TROPHS #### [place] [address] Platelet 330 10 3/mcL Normal 150-450 [facility] ([place]) Comment on above: Performed By: #### A PTT, GFR, PRO, BMP, TROPHS #### [place] [address] [place] [address] Platelet mean volume (Bld) [Entitic vol] 7.7 fL Normal 6.4-10.5 [facility] ([place] Comment on above: Performed By: #### A PTT, GFR, PRO, BMP, TROPHS #### [address] [address] RBC 4.92 10 6/mcL Normal 4.50-6.00 [facility] ([place] Comment on above: Performed By: #### A PTT, GFR, PRO, BMP, TROPHS #### [address] [address] WBC 8.3 10 3/mcL Normal 4.5-10.8 [facility] ([place] Comment on above: Performed By: #### A PTT, GFR, PRO, BMP, TROPHS #### [address] [address] LABORATORYOrdered By: Daniel Maddox on 03-12-2022 Cholesterol [...] 03-12-2022 Cholesterol [Mass/Vol] 271 mg/dL High 50-199 [facility] ([place] Comment on above: Result Comment: Chol esterol Reference Interval: Less than 200 Desirable 200-239 Borderline high risk 240 and above High risk Performed By: #### A PTT, GFR, PRO, BMP, TROPHS #### [address] [address] Cholesterol in HDL [Mass/Vol] 42 mg/dL Normal 40-59 [facility] ([place] Comment on above: Performed By: #### A PTT, GFR, PRO, BMP, TROPHS #### [address] [address] Cholesterol in LDL [Mass/Vol] 195 mg/dL High 0-129 [facility] ([place] Comment on above: Performed By: #### A PTT, GFR, PRO, BMP, TROPHS #### [address] [address] Triglyceride [Mass/Vol] 168 mg/dL High 3-149 [facility] ([place] Comment on above: Result Comment: Spec imen icteric. Results may be affected. Performed By: #### A PTT, GFR, PRO, BMP, TROPHS #### [address] [address] MRI BRAIN W/O CONTRASTon MRI BRAIN W/O [...] 7:13:35 PM Ordering Provider: MERCY MADDEN Normal [facility] [place] [facility] 03-12-2022 Color (U) Dark Yellow Normal [facility] ([place] Comment on above: Performed By: #### A PTT, GFR, PRO, BMP, TROPHS #### [place] [address] Glucose (U) [Mass/Vol] Negative Normal Negative [facility] ([place] Comment on above: Performed By: #### A PTT, GFR, PRO, BMP, TROPHS #### [place] [address] Ketones Ql (U) 15 mg/dL Abnormal Neg-Trace [facility] ([place] Comment on above: Performed By: #### A PTT, GFR, PRO, BMP, TROPHS #### [place] [address] UA Appear Hazy Abnormal Clear [facility] ([place] Comment on above: Performed By: #### A PTT, GFR, PRO, BMP, TROPHS #### [address] [address] UA Bili Moderate Abnormal Neg-Trace [facility] ([place] Comment on above: Performed By: #### A PTT, GFR, PRO, BMP, TROPHS #### [address] [address] UA Blood Negative Normal Neg-Trace [facility] ([place] Comment on above: Performed By: #### A PTT, GFR, PRO, BMP, TROPHS #### [place] [id number] UA Leuk Est Negative Normal Negative [facility] ([place] Comment on above: Performed By: #### A PTT, GFR, PRO, BMP, TROPHS #### [place] [id number] UA Nitrite Negative Normal Negative [facility] ([place] Comment on above: Performed By: #### A PTT, GFR, PRO, BMP, TROPHS #### [address] [address] UA pH 6.0 Normal 5.0 - 8.0 [facility] ([place] Comment on above: Performed By: #### A PTT, GFR, PRO, BMP, TROPHS #### [address] [address] UA Protein Negative Normal Negative [facility] ([place] Comment on above: Performed By: #### A PTT, GFR, PRO, BMP, TROPHS #### [address] [address] UA Spec Grav 1.025 Normal 1.006-1.029 [facility] ([place] Comment on above: Performed By: #### A PTT, GFR, PRO, BMP, TROPHS #### [address] [address] UA Specimen Type Clean Catch Normal [facility] ([place] Comment on above: Performed By: #### A PTT, GFR, PRO, BMP, TROPHS #### [address] [address] UA Urobilinogen 1.0 E.U./dL Normal 0.2-1.0 [facility] ([place] Comment on above: Performed By: #### A PTT, GFR, PRO, BMP, TROPHS #### [address] [address] UAMICon 03-12-2022 UA Bacteria Trace Abnormal Negative [facility] ([place] Comment on above: Performed By: #### A PTT, GFR, PRO, BMP, TROPHS #### [address] [address] UA CA Ox Crystal 4+ /hpf Normal [facility] ([place] Comment on above: Performed By: #### A PTT, GFR, PRO, BMP, TROPHS #### [address] [address] UA Mucous 4+ /hpf Normal [facility] ([place] Comment on above: Performed By: #### A PTT, GFR, PRO, BMP, TROPHS #### [address] [address] UA RBC Negative Normal 0-2 [facility] ([place] Comment on above: Performed By: #### A PTT, GFR, PRO, BMP, TROPHS #### [address] [address] UA Squam Epithelial 0-2 Normal 0-20 [facility] ([place] Comment on above: Performed By: #### A PTT, GFR, PRO, BMP, TROPHS #### [address] [address] UA WBC 3-5 Normal 0-5 [facility] ([place] Comment on above: Performed By: #### A PTT, GFR, PRO, BMP, TROPHS #### [address] [address] .Auto Diffon 03-11-2021 Basophil, Absolute 0.1 10 3/mcL Normal 0.0-0.3 [facility] ([place] Comment on above: Performed By: #### A PTT, GFR, PRO, BMP, TROPHS #### [address] [address] Basophils/100 WBC (Bld) 0.8 % Normal 0.0-2.5 [facility] ([place] Comment on above: Performed By: #### A PTT, GFR, PRO, BMP, TROPHS #### [address] [address] Eosinophil, Absolute 0.3 10 3/mcL Normal 0.0-0.7 [facility] ([place] Comment on above: Performed By: #### A PTT, GFR, PRO, BMP, TROPHS #### [address] [address] Eosinophils/100 WBC (Bld) 3.8 % Normal 0.0-6.0 [facility] ([place] Comment on above: Performed By: #### A PTT, GFR, PRO, BMP, TROPHS #### [address] [address] Lymphocyte, Absolute 1.9 10 3/mcL Normal 0.9-4.3 [facility] ([place]) Comment on above: Performed By: #### A PTT, GFR, PRO, BMP, TROPHS #### [address] [address] Lymphocytes/100 WBC (Bld) 23.7 % Normal 20.0-40.0 [facility] ([place] Comment on above: Performed By: #### A PTT, GFR, PRO, BMP, TROPHS #### [address] [address] Monocyte, Absolute 0.9 10 3/mcL Normal 0.1-1.4 [facility] ([place] Comment on above: Performed By: #### A PTT, GFR, PRO, BMP, TROPHS #### [address] [address] Monocytes/100 WBC (Bld) 11.4 % Normal 2.0-13.0 [facility] ([place] Comment on above: Performed By: #### A PTT, GFR, PRO, BMP, TROPHS #### [address] [address] Neutrophils/100 WBC (Bld) 60.3 % Normal 50.0-75.0 [facility] ([place] Comment on above: Performed By: #### A PTT, GFR, PRO, BMP, TROPHS #### [address] [address] .GFRon 03-11-2022 GFR >60 Normal [facility] ([place] Comment on above: Result Comment: GFR Population [...] A PTT, GFR, PRO, BMP, TROPHS #### [address] [address] GFR Non- >60 Normal [facility] ([place] Comment on above: Result Comment: GFR Population [...] A PTT, GFR, PRO, BMP, TROPHS #### [place] [id number] .MDWon 03-11-2022 Monocyte Distribution Width Not performed Normal 0.00-20.00 [facility] ([place] Comment on above: Result Comment: MDW testing performed only on adult ER patients between the ages of 18-89 years. Performed By: #### A PTT, GFR, PRO, BMP, TROPHS #### [address] [address] .NEUABSon 03-11-2022 Neutrophil, Absolute 4.9 10 3/mcL Normal 2.3-8.1 [facility] ([place]) Comment on above: Performed By: #### A PTT, GFR, PRO, BMP, TROPHS #### [address] [address] A1Con 03-11-2022 HbA1c (Bld) [Mass fraction] 5.4 % Normal 4.0-6.0 [facility] ([place] Comment on above: Performed By: #### A PTT, GFR, PRO, BMP, TROPHS #### [address] [address] BMPon 03-11-2022 BUN/Creatinine Ratio 13.3 ratio Normal 10.0-22.0 [facility] ([place] Comment on above: Performed By: #### A PTT, GFR, PRO, BMP, TROPHS #### [address] [address] Creatinine [Mass/Vol] 0.75 mg/dL Normal 0.60-1.40 [facility] ([place] Comment on above: Performed By: #### A PTT, GFR, PRO, BMP, TROPHS #### [address] [address] Calcium [Mass/Vol] 9.6 mg/dL Normal 8.7-10.4 [facility] ([place] Comment on above: Performed By: #### A PTT, GFR, PRO, BMP, TROPHS #### [address] [address] Chloride [Moles/Vol] 111 mmol/L High 98-110 [facility] ([place] Comment on above: Performed By: #### A PTT, GFR, PRO, BMP, TROPHS #### [address] [address] CO2 [Moles/Vol] 24 mmol/L Normal 22-32 [facility] ([place] Comment on above: Performed By: #### A PTT, GFR, PRO, BMP, TROPHS #### [address] [address] Electrolyte Balance 8.0 mEq/L Normal 4.0-15.0 [facility] ([place] Comment on above: Performed By: #### A PTT, GFR, PRO, BMP, TROPHS #### [address] [address] Glucose [Mass/Vol] 105 mg/dL Normal 82-115 [facility] ([place] Comment on above: Performed By: #### A PTT, GFR, PRO, BMP, TROPHS #### [address] [address] Potassium [Moles/Vol] 3.6 mmol/L Normal 3.5-5.0 [facility] ([place] Comment on above: Performed By: #### A PTT, GFR, PRO, BMP, TROPHS #### [place] [id number] Sodium [Moles/Vol] 143 mmol/L Normal 136-145 [facility] ([place] Comment on above: Performed By: #### A PTT, GFR, PRO, BMP, TROPHS #### [place] [address] Urea nitrogen [Mass/Vol] 10.0 mg/dL Normal 8.0-22.0 [facility] ([place] Comment on above: Performed By: #### A PTT, GFR, PRO, BMP, TROPHS #### [place] [address] CBCon 03-11-2022 Erythrocyte distribution width (RBC) [Ratio] 11.7 % Normal 11.5-15.5 [facility] ([place] Comment on above: Performed By: #### A PTT, GFR, PRO, BMP, TROPHS #### [place] [address] Hematocrit (Bld) [Volume fraction] 45.9 % Normal 40.0-52.0 [facility] ([place] Comment on above: Performed By: #### A PTT, GFR, PRO, BMP, TROPHS #### [place] [address] Hgb 16.2 G/dL Normal 13.0-17.5 [facility] ([place] Comment on above: Performed By: #### A PTT, GFR, PRO, BMP, TROPHS #### [place] [address] MCH (RBC) [Entitic mass] 33.7 pg High 27.0-33.0 [facility] ([place] Comment on above: Performed By: #### A PTT, GFR, PRO, BMP, TROPHS #### [place] [address] MCHC 35.2 G/dL Normal 32.0-36.0 [facility] ([place] Comment on above: Performed By: #### A PTT, GFR, PRO, BMP, TROPHS #### [facility] [address] [place], [place] [address] MCV (RBC) [Entitic vol] 95.6 fL Normal 81.0-100.0 [facility] ([place] Comment on above: Performed By: #### A PTT, GFR, PRO, BMP, TROPHS #### [address] [address] Platelet 331 10 3/mcL Normal 150-450 [facility] ([place] Comment on above: Performed By: #### A PTT, GFR, PRO, BMP, TROPHS #### [address] [address] Platelet mean volume (Bld) [Entitic vol] 7.4 fL Normal 6.4-10.5 [facility] ([place] Comment on above: Performed By: #### A PTT, GFR, PRO, BMP, TROPHS #### [address] [address] RBC 4.81 10 6/mcL Normal 4.50-6.00 [facility] ([place] Comment on above: Performed By: #### A PTT, GFR, PRO, BMP, TROPHS #### [address] [address] WBC 8.1 10 3/mcL Normal 4.5-10.8 [facility] ([place] Comment on above: Performed By: #### A PTT, GFR, PRO, BMP, TROPHS #### [address] [address] LABORATORYOrdered By: SYSTEM SYSTEM on 03-11-2022 HbA1c [...] 03-11-2022 Magnesium [Mass/Vol] 2.0 mg/dL Normal 1.6-2.4 [facility] ([place] Comment on above: Performed By: #### A PTT, GFR, PRO, BMP, TROPHS #### [place] [address] PHOSon 03-11-2022 Phosphate [Mass/Vol] 2.7 mg/dL Normal 2.4-5.1 [facility] ([place] Comment on above: Result Comment: No te - New Reference Range in effect 20 Performed By: #### A PTT, GFR, PRO, BMP, TROPHS #### [place] [address] PROon 03-11-2022 INR Coag (PPP) [Relative time] 1.0 {INR} Normal [facility] ([place] Comment on above: Result Comment: [employer] (CHEST, 1992, [id number]) recommended therapeutic range for oral anticoagulant therapy is: LOW RISK: Prophylaxis of venous thrombosis INR: 2.0-3.0 Treatment of pulmonary embolism 2.0-3.0 Prevention of systemic embolism 2.0-3.0 HIGH RISK: Mechanical prosthetic valves 2.5-3.5 Performed By: #### A PTT, GFR, PRO, BMP, TROPHS #### [place] [address] PT Coag (PPP) [Time] 12.5 s Normal 9.0-14.9 [facility] ([place] Comment on above: Result Comment: Effe ctive 03/06/08, Protime results may be affected by some antibiotics (i.e. Ciprofloxacin, Azithromycin, Bactrim) which may potentiate the action of oral anticoagulants, with further increases in Protime/INR. Performed By: #### A PTT, GFR, PRO, BMP, TROPHS #### [place] [address] TROPHSon 03-11-2022 Troponin I High Sensitivity 17.36 ng/L Normal 0.00-54.00 [facility] [facility] ([place]) Comment on above: Result Comment: If t he High Sensitive Troponin result is below the 99th percentile value (<45 ng/L) at the first blood draw, at least two additional blood samples should be drawn before results are interpreted as negative for AMI. Performed By: #### A PTT, GFR, PRO, BMP, TROPHS #### [address] [address] TSHon 03-11-2022 TSH 4.017 mIU/mL Normal 0.550-4.780 [facility] ([place]) Comment on above: Result Comment: No te - New Reference Range in effect 20 Performed By: #### A PTT, GFR, PRO, BMP, TROPHS #### [address] [address] .Auto Diffon 03-10-2022 Basophil, Absolute 0.1 10 3/mcL Normal 0.0-0.3 [facility] ([place]) Comment on above: Performed By: #### A PTT, GFR, PRO, BMP, TROPHS #### [address] [address] Basophils/100 WBC (Bld) 0.9 % Normal 0.0-2.5 [facility] ([place] Comment on above: Performed By: #### A PTT, GFR, PRO, BMP, TROPHS #### [address] [address] Eosinophil, Absolute 0.3 10 3/mcL Normal 0.0-0.7 [facility] ([place]) Comment on above: Performed By: #### A PTT, GFR, PRO, BMP, TROPHS #### [address] [address] Eosinophils/100 WBC (Bld) 3.8 % Normal 0.0-6.0 [facility] ([place] Comment on above: Performed By: #### A PTT, GFR, PRO, BMP, TROPHS #### [address] [address] Lymphocyte, Absolute 2.3 10 3/mcL Normal 0.9-4.3 [facility] ([place]) Comment on above: Performed By: #### A PTT, GFR, PRO, BMP, TROPHS #### [address] [address] Lymphocytes/100 WBC (Bld) 30.0 % Normal 20.0-40.0 [facility] ([place] Comment on above: Performed By: #### A PTT, GFR, PRO, BMP, TROPHS #### [address] [address] Monocyte, Absolute 0.8 10 3/mcL Normal 0.1-1.4 [facility] ([place] Comment on above: Performed By: #### A PTT, GFR, PRO, BMP, TROPHS #### [address] [address] Monocytes/100 WBC (Bld) 10.7 % Normal 2.0-13.0 [facility] ([place] Comment on above: Performed By: #### A PTT, GFR, PRO, BMP, TROPHS #### [address] [address] Neutrophils/100 WBC (Bld) 54.6 % Normal 50.0-75.0 [facility] ([place] Comment on above: Performed By: #### A PTT, GFR, PRO, BMP, TROPHS #### [address] [address] .GFRon 03-10-2022 GFR >60 Normal [facility] ([place] Comment on above: Result Comment: GFR Population [...] A PTT, GFR, PRO, BMP, TROPHS #### [place] [id number] GFR Non- >60 Normal [facility] ([place] Comment on above: Result Comment: GFR Population [...] A PTT, GFR, PRO, BMP, TROPHS #### [place] [address] .MDWon 03-10-2022 Monocyte Distribution Width 18.78 Normal 0.00-20.00 [facility] ([place] Comment on above: Result Comment: For ED adult patients suspected of sepsis, MDW<=20.0 does not rule out sepsis or risk of sepsis Performed By: #### A PTT, GFR, PRO, BMP, TROPHS #### [place] [address] .NEUABSon 03-10-2022 Neutrophil, Absolute 4.2 10 3/mcL Normal 2.3-8.1 [facility] ([place]) Comment on above: Performed By: #### A PTT, GFR, PRO, BMP, TROPHS #### [place] [address] APTTon 03-10-2022 aPTT Coag (Bld) [Time] 31.3 s Normal 25.0-35.0 [facility] ([place] Comment on above: Result Comment: For Heparin anticoagulation therapy, the recommended therapeutic range is: 54-77 seconds (APTT Correlation with Anti-Xa therapeutic range of 0.3-0.7 units/ml). PLEASE REFERENCE THE PHARMACY PROTOCOL FOR DOSING. Performed By: #### A PTT, GFR, PRO, BMP, TROPHS #### [address] [address] Heparin dose (APTT) None Normal [facility] ([place]) Comment on above: Performed By: #### A PTT, GFR, PRO, BMP, TROPHS #### [place] [id number] BMPon 03-10-2022 BUN/Creatinine Ratio 10.1 ratio Normal 10.0-22.0 [facility] ([place]) Comment on above: Performed By: #### A PTT, GFR, PRO, BMP, TROPHS #### [place] [address] Calcium [Mass/Vol] 10.1 mg/dL Normal 8.7-10.4 [facility] ([place]) Comment on above: Performed By: #### A PTT, GFR, PRO, BMP, TROPHS #### [place] [address] Chloride [Moles/Vol] 111 mmol/L High 98-110 [facility] ([place] Comment on above: Performed By: #### A PTT, GFR, PRO, BMP, TROPHS #### [place] [id number] CO2 [Moles/Vol] 26 mmol/L Normal 22-32 [facility] ([place] Comment on above: Performed By: #### A PTT, GFR, PRO, BMP, TROPHS #### [address] [address] Creatinine [Mass/Vol] 0.89 mg/dL Normal 0.60-1.40 [facility] ([place] Comment on above: Performed By: #### A PTT, GFR, PRO, BMP, TROPHS #### [address] [address] Electrolyte Balance 8.0 mEq/L Normal 4.0-15.0 [facility] ([place] Comment on above: Performed By: #### A PTT, GFR, PRO, BMP, TROPHS #### [address] [address] Glucose [Mass/Vol] 103 mg/dL Normal 82-115 [facility] ([place] Comment on above: Performed By: #### A PTT, GFR, PRO, BMP, TROPHS #### [address] [address] Potassium [Moles/Vol] 3.5 mmol/L Normal 3.5-5.0 [facility] ([place] Comment on above: Performed By: #### A PTT, GFR, PRO, BMP, TROPHS #### [address] [address] Sodium [Moles/Vol] 145 mmol/L Normal 136-145 [facility] ([place] Comment on above: Performed By: #### A PTT, GFR, PRO, BMP, TROPHS #### [place] [address] Urea nitrogen [Mass/Vol] 9.0 mg/dL Normal 8.0-22.0 [facility] ([place] Comment on above: Performed By: #### A PTT, GFR, PRO, BMP, TROPHS #### [address] [address] CBCon 03-10-2022 Erythrocyte distribution width (RBC) [Ratio] 11.9 % Normal 11.5-15.5 [facility] ([place] Comment on above: Performed By: #### A PTT, GFR, PRO, BMP, TROPHS #### [address] [address] Hematocrit (Bld) [Volume fraction] 46.2 % Normal 40.0-52.0 [facility] ([place] Comment on above: Performed By: #### A PTT, GFR, PRO, BMP, TROPHS #### [address] [address] Hgb 16.4 G/dL Normal 13.0-17.5 [facility] ([place] Comment on above: Performed By: #### A PTT, GFR, PRO, BMP, TROPHS #### [address] [address] MCH (RBC) [Entitic mass] 33.7 pg High 27.0-33.0 [facility] ([place] Comment on above: Performed By: #### A PTT, GFR, PRO, BMP, TROPHS #### [place] [address] MCHC 35.6 G/dL Normal 32.0-36.0 [facility] ([place] Comment on above: Performed By: #### A PTT, GFR, PRO, BMP, TROPHS #### [place] [address] MCV (RBC) [Entitic vol] 94.8 fL Normal 81.0-100.0 [facility] ([place] Comment on above: Performed By: #### A PTT, GFR, PRO, BMP, TROPHS #### [place] [address] Platelet 359 10 3/mcL Normal 150-450 [facility] ([place] Comment on above: Performed By: #### A PTT, GFR, PRO, BMP, TROPHS #### [place] [address] Platelet mean volume (Bld) [Entitic vol] 7.2 fL Normal 6.4-10.5 [facility] ([place] Comment on above: Performed By: #### A PTT, GFR, PRO, BMP, TROPHS #### [place] [address] RBC 4.87 10 6/mcL Normal 4.50-6.00 [facility] ([place] Comment on above: Performed By: #### A PTT, GFR, PRO, BMP, TROPHS #### [place] [address] WBC 7.7 10 3/mcL Normal 4.5-10.8 [facility] ([place] Comment on above: Performed By: #### A PTT, GFR, PRO, BMP, TROPHS #### [place] [address] [address] ANGIOGRAPHY HEAD W/ CONTR Cb 03-10-2022 [...] 03/10/2022 9:00:17 PM Ordering Provider: SHERIF ARGUELLO [facility] ([place] ANGIOGRAPHY NECK W/CONTRA STon 03-10-2022 CT [...] 03/10/2022 9:00:17 PM Ordering Provider: SHERIF ARGUELLO [facility] ([place] HEAD OR BRAIN W/O CONTRAS Ton [...] 03/10/2022 8:46:52 PM Ordering Provider: SHERIF Crow [facility] ([place]) LABORATORYOrdered By: Cristina Fitch on 03-10-2022 aPTT [...] Invalid Interpretation Code 82 - 115 mg/dL [facility] PROon 03-10-2022 INR Coag (PPP) [Relative time] 1.0 {INR} Normal [facility] ([place]) Comment on above: Result Comment: The [employer] (CHEST, 1992, 102:312S-25S) recommended therapeutic range for oral anticoagulant therapy is: LOW RISK: Prophylaxis of venous thrombosis INR: 2.0-3.0 Treatment of pulmonary embolism 2.0-3.0 Prevention of systemic embolism 2.0-3.0 HIGH RISK: Mechanical prosthetic valves 2.5-3.5 Performed By: #### A PTT, GFR, PRO, BMP, TROPHS #### [address] [address] PT Coag (PPP) [Time] 12.1 s Normal 9.0-14.9 [facility] ([place]) Comment on above: Result Comment: Effe ctive 03/06/08, Protime results may be affected by some antibiotics (i.e. Ciprofloxacin, Azithromycin, Bactrim) which may potentiate the action of oral anticoagulants, with further increases in Protime/INR. Performed By: #### A PTT, GFR, PRO, BMP, TROPHS #### [address] [address] TROPHSon 03-10-2022 Troponin I High Sensitivity 12.56 ng/L Normal 0.00-54.00 [facility] ([place]) Comment on above: Result Comment: If t he High Sensitive Troponin result is below the 99th percentile value (<45 ng/L) at the first blood draw, at least two additional blood samples should be drawn before results are interpreted as negative for AMI. Performed By: #### A PTT, GFR, PRO, BMP, TROPHS #### [address] [address] XR CHEST 1 VIEWon 03-10-2022 XR CHEST [...] 03/10/2022 7:37:15 PM Ordering Provider: SHERIF Crow [facility] ([place]) Vital Signs Date Time Vital Sign Value Performing Clinician Naty gaston 03-30-2022 17:53-0400 Reason For Taking VItal Signs RANDOLPH DHILLON MD [address] [place] [address] 03-30-2022 15:44-0400 Reason For Taking VItal Signs RANDOLPH DHILLON MD [address] [place] [address] 03-30-2022 14:37-0400 Body temperature 98.24 [degF] RANDOLPH DHILLON MD [address] [place] [address] 03-30-2022 14:37-0400 Diastolic blood pressure 67 mm[Hg] RANDOLPH DHILLON MD [address] [place] [address] 03-30-2022 14:37-0400 Heart rate 92 /min RANDOLPH DHILLON MD [address] [place] [address] 03-30-2022 14:37-0400 Mean blood pressure 90 mm[Hg] RANDOLPH DHILLON MD [address] [place] [address] 03-30-2022 14:37-0400 Reason For Taking VItal Signs RANDOLPH DHILLON MD [address] [place] [address] 03-30-2022 14:37-0400 Respiratory rate 18 /min RANDOLPH DHILLON MD [address] [place] [address] 03-30-2022 14:37-0400 Systolic blood pressure 137 mm[Hg] RANDOLPH DHILLON MD [address] [place] [address] 03-30-2022 11:54-0400 Body temperature 98.78 [degF] RANDOLPH DHILLON MD [address] [place] [address] 03-30-2022 11:54-0400 Diastolic blood pressure 70 mm[Hg] RANDOLPH DHILLON MD [address] [place] [address] 03-30-2022 11:54-0400 Heart rate 91 /min RANDOLPH DHILLON MD [address] [place] [address] 03-30-2022 11:54-0400 Mean blood pressure 91 mm[Hg] RANDOLPH DHILLON MD [address] [place] [address] 03-30-2022 11:54-0400 Respiratory rate 18 /min RANDOLPH DHILLON MD [address] [place] [address] 03-30-2022 11:54-0400 Systolic blood pressure 134 mm[Hg] RANDOLPH DHILLON MD [address] [place] [address] 03-30-2022 07:23-0400 Body temperature 98.42 [degF] RANDOLPH DHILLON MD [address] [place] [address] 03-30-2022 07:23-0400 Diastolic blood pressure 70 mm[Hg] RANDOLPH DHILLON MD [address] [place] [address] 03-30-2022 07:23-0400 Heart rate 91 /min RANDOLPH DHILLON MD [address] [place] [address] 03-30-2022 07:23-0400 Mean blood pressure 98 mm[Hg] RANDOLPH DHILLON MD [address] [place] [address] 03-30-2022 07:23-0400 Respiratory rate 18 /min RANDOLPH DHILLON MD [address] [place] [address] 03-30-2022 07:23-0400 Systolic blood pressure 154 mm[Hg] RANDOLPH DHILLON MD [address] [place] [address] 03-29-2022 11:23-0400 Heart rate 89 /min RANDOLPH DHILLON MD [address] [place] [address] 03-27-2022 21:14-0400 Body height 177.8 cm RANDOLPH DHILLON MD [address] [place] [address] 03-27-2022 21:14-0400 Body weight 84.5 kg RANDOLPH DHILLON MD [address] [place] [address] 03-27-2022 21:14-0400 Body weight 26.73 kg/m2 RANDOLPH DHILLON MD [address] [place] [address] 03-27-2022 20:40-0400 Heart rate 93 /min RANDOLPH DHILLON MD [address] [place] [address] 03-27-2022 19:49-0400 Heart rate 94 /min RANDOLPH DHILLON MD [facility] 03-27-2022 16:58-0400 Heart rate 95 /min RANDOLPH DHILLON MD [facility] 03-27-2022 11:11-0400 Diastolic blood pressure 88 mm[Hg] LEVON LAMBERTATZLE DO [place] 03-27-2022 11:11-0400 Heart rate 120 /min LEVON LAMBERTATZLE DO [place] [facility] 03-27-2022 11:11-0400 Reason For Taking VItal Signs LEVON FAUSTOATZLE DO [place] [facility] 03-27-2022 11:11-0400 Respiratory rate 32 /min LEVON SCHEATZLE DO [place] 03-27-2022 11:11-0400 Systolic blood pressure 212 mm[Hg] LVEON SCHEATZLE DO [place] [facility] 03-27-2022 08:04-0400 Body temperature 99.32 [degF] LEVON SCHEATZLE DO [place] [facility] 03-27-2022 08:04-0400 Diastolic blood pressure 62 mm[Hg] LEVON SCHEATZLE DO [place] [facility] 03-27-2022 08:04-0400 Heart rate 88 /min LEVON LAMBERTATZLE DO [place] 03-27-2022 08:04-0400 Mean blood pressure 87 mm[Hg] LEVON SCHEATZLE DO [place] 03-27-2022 08:04-0400 Reason For Taking VItal Signs LEVON FAUSTOATZLE DO [place] 03-27-2022 08:04-0400 Respiratory rate 18 /min LEVON LAMBERTATZLE DO [facility] 03-27-2022 08:04-0400 Systolic blood pressure 136 mm[Hg] LEVON LAMBERTATZLE DO [place] 03-27-2022 00:42-0400 Body temperature 97.88 [degF] LEVON LAMBERTATZLE DO [place] 03-27-2022 00:42-0400 Diastolic blood pressure 80 mm[Hg] LEVON LAMBERTATZLE DO [facility] 03-27-2022 00:42-0400 Heart rate 106 /min LEVON LAMBERTATZLE DO [facility] 03-27-2022 00:42-0400 Respiratory rate 18 /min LEVON LAMBERTATZLE DO [facility] 03-27-2022 00:42-0400 Systolic blood pressure 144 mm[Hg] LEVON LAMBERTATZLE DO [place] 03-26-2022 20:00-0400 Heart rate 105 /min LEVON LAMBERTATZLE DO [facility] 03-26-2022 18:02-0400 Body temperature 98.06 [degF] LEVON LAMBERTATZLE DO [facility] 03-26-2022 18:02-0400 Mean blood pressure 119 mm[Hg] LEVON LAMBERTATZLE DO [place] 03-26-2022 18:02-0400 Reason For Taking VItal Signs LEVON LAMBERTATZLE DO [place] 03-26-2022 15:25-0400 Body temperature 98.6 [degF] LEVON FAUSTOATZLE DO [place] 03-26-2022 15:25-0400 Heart rate 102 /min LEVON LAMBERTATZLE DO [facility] 03-26-2022 08:55-0400 Body temperature 98.24 [degF] LEVON LAMBERTATZLE DO [facility] 03-26-2022 08:55-0400 Heart rate 100 /min LEVON LAMBERTATZLE DO [facility] 03-26-2022 08:55-0400 Mean blood pressure 101 mm[Hg] LEVON LAMBERTATZLE DO [facility] 03-25-2022 16:22-0400 Body temperature 97.88 [degF] LEVON LAMBERTATZLE DO [facility] 03-15-2022 17:53-0400 Body height 177 cm LEVON LAMBERTATZLE DO [facility] 03-15-2022 17:53-0400 Body weight 80.9 kg LEVON LAMBERTATZLE DO [facility] 03-15-2022 17:53-0400 Body weight 25.82 kg/m2 LEVON LAMBERTATZLE DO [facility] 03-15-2022 14:33-0400 Body temperature 97.7 [degF] TRINA BARRERA AM, MD [facility] 03-15-2022 14:33-0400 Diastolic blood pressure 64 mm[Hg] TRINA QUINTANILLA MD [facility] 03-15-2022 14:33-0400 Heart rate 98 /min TRINA BARRERA AM, MD [facility] 03-15-2022 14:33-0400 Respiratory rate 18 /min TRINA BARRERA AM, MD [facility] 03-15-2022 14:33-0400 Systolic blood pressure 169 mm[Hg] TRINA QUINTANILLA MD [facility] 03-15-2022 11:36-0400 Body temperature 97.52 [degF] TRINA BARRERA AM, MD [facility] 03-15-2022 11:36-0400 Diastolic blood pressure 82 mm[Hg] TRINA QUINTANILLA MD [facility] 03-15-2022 11:36-0400 Heart rate 82 /min TRINA BARRERA AM, MD [facility] 03-15-2022 11:36-0400 Mean blood pressure 106 mm[Hg] TRINA BARRERA AM, MD [facility] 03-15-2022 11:36-0400 Reason For Taking VItal Signs TRINA QUINTANILLA MD [facility] 03-15-2022 11:36-0400 Respiratory rate 18 /min TRINA BARRERA AM, MD [facility] 03-15-2022 11:36-0400 Systolic blood pressure 154 mm[Hg] TRINA QUINTANILLA MD [facility] 03-15-2022 07:20-0400 Body temperature 97.7 [degF] TRINA BARRERA AM, MD [facility] 03-15-2022 07:20-0400 Diastolic blood pressure 83 mm[Hg] TRINA QUINTANILLA MD [facility] 03-15-2022 07:20-0400 Heart rate 79 /min TRINA BARRERA AM, MD [facility] 03-15-2022 07:20-0400 Mean blood pressure 111 mm[Hg] TRINA BARRERA AM, MD [facility] 03-15-2022 07:20-0400 Reason For Taking VItal Signs TRINA QUINTANILLA MD [facility] 03-15-2022 07:20-0400 Respiratory rate 16 /min TRINA BARRERA AM, MD [facility] 03-15-2022 07:20-0400 Systolic blood pressure 166 mm[Hg] TRINA QUINTANILLA MD [facility] 03-15-2022 04:41-0400 Heart rate 90 /min TRINA BARRERA AM, MD [facility] 03-15-2022 04:41-0400 Mean blood pressure 107 mm[Hg] TRINA BARRERA AM, MD [facility] 03-15-2022 04:41-0400 Reason For Taking VItal Signs TRINA QUINTANILLA MD [facility] 03-14-2022 15:46-0400 Body height 172.7 cm TRINA BARRERA AM, MD [facility] 03-14-2022 15:46-0400 Body weight 84.5 kg TRINA TISSMYRIAM SARKAR MD [facility] 03-14-2022 15:46-0400 Body weight 28.33 kg/m2 TRINA BARRERA AM, MD [facility] 03-14-2022 15:24-0400 Heart rate 83 /min TRINA BARRERA AM, MD [facility] 03-14-2022 10:34-0400 Heart rate 95 /min TRINA SYLVESTERAVIRCOLIN SARKAR MD [facility] 03-11-2022 10:04-0400 Body height 172.7 cm TRINA BARRERA AM, MD [facility] 03-11-2022 10:04-0400 Body weight 84.5 kg TRINA BARRERA AM, MD [facility] 03-11-2022 10:04-0400 Body weight 28.33 kg/m2 TRINA BARRERA AM, MD [facility] 03-10-2022 18:35-0400 Body weight 84.5 kg TRINA BARRERA AM, MD [facility] Encounters Encounter Date Encounter Type Care Provider Facility Start: 01-29-2025 End: 01-29-2025 Patient encounter procedure Rosalia Adams NP-C -[facility] Work Phone: Start: 01-29-2025 End: 01-29-[address] Levon Duke MD Work Phone: [facility] Work Phone: Start: 01-01-2025 End: 01-01-2025 Patient encounter procedure Rosalia Adams NP-C -[facility] Work Phone: Start: 01-01-2025 End: 01-01-2025 ambulatory Rosalia Adams Facility:[facility] Start: 12-02-2024 End: 12-02-[address] Levon Duke MD Work Phone: [facility] Work Phone: Start: 12-02-2024 End: 12-02-2024 Patient encounter procedure Geetha Lara NP-C -Laboratory, Specimen Work Phone: Start: 12-02-2024 End: 12-02-2024 ambulatory Geetha Lara Facility:[facility] Start: 07-06-2024 ambulatory Geetha Morrow Fa cility:[facility] Start: 07-02-2024 ambulatory Epi Tirado Fac ility:[facility] Start: 07-02-2024 End: 07-07-2024 Evaluation and management of inpatient Tom Escobedo Facility:[facility] Start: 02-18-2024 End: 02-18-2024 ambulatory Levon Duke Facility:[facility] Start: 08-31-2023 End: 09-01-2023 ambulatory GEETHA LARA Facility:[facility] Start: 03-27-2022 End: 03-30-2022 Observation RANDOLPH DHILLON MD [facility] Start: 03-15-2022 End: 03-27-2022 Evaluation and management of inpatient [facility] Start: 03-10-2022 End: 03-15-2022 Evaluation and management of inpatient TRINA QUINTANILLA MD [facility] Procedures Date Procedure Procedure Detail Performing Clinician Start: 12-01-[address] Levon Duke MD Work Phone: Start: 12-01-[address] [address] Levon Duke MD Work Phone: Start: 12-01-2024 [facility]va&parasites direct smears concentration & id Dr. Levon Duke MD Work Phone: Lithotripsy TRINA CHAU MD Plan of Treatment Date Care Activity Detail Author C reactive protein [ Mass/volume] in Serum or Plasma [facility] Elastase.pancreatic [Presence] in Stool [facility] Hepatic function panel [facility] Protein measurement [facility] Triacylglycerol lipase measurement [facility] Payers Date Payer Category Payer Medicaid [id number] 2024 Self-pay 2024 Unknown 2023 Medicaid [id number] Unknown [id number] 2.16.8 [id number] Unknown [id number] 2.16.8 [id number] Unknown [id number] 2.16.8 [id number] Unknown [id number] 2.16.8 [id number] Unknown [id number] 2.16.8 [id number] Unknown [id number] 2.16.8 [id number] Unknown [id number] 2.16.8 [id number] Unknown [id number] 2.16.8 [id number] Unknown [id number] 2.16.8 [id number] Unknown [id number] 2.16.8 [id number] Unknown [id number] 2.16.8 [id number] Unknown [id number] 2.16.8 [id number] Social History Date Type Detail Facility Start: 03-01-2022 Tobacco smoking status Never s moked tobacco (finding) [facility] Sex Assigned At Sex [facility] Start: 07-02-2024 End: 01-29-2025 Tobacco smoking status NHIS Ex-smoker (finding) [facility] Start: 12-06-2024 Sex Male (finding) [facility] Start: 1950 Sex Assigned At Male [facility] Functional Status Date Assessment Result Facility 03-30-2022 Functional Status Room check performed [facility] 03-30-2022 Functional Status [facility] 03-30-2022 Functional Status [facility] 03-30-2022 Functional Status Mod A 1 [facility] 03-30-2022 Functional Status Done [facility] 03-29-2022 Functional Status [facility] 03-28-2022 Functional Status Activity Assistance One assist [facility] 03-28-2022 Functional Status son Claudio - singh pport system no POA per pt report but brother Gavin is listed [facility] 03-27-2022 Functional Status Room check performed [facility] 03-27-2022 [facility] 03-26-2022 Functional Status heel(s)s elevated [facility] [place] 03-26-2022 Functional Status Antiembolism S tocking On/Re-applied bilateral knee high [facility] 03-25-2022 Functional Status Antiembolism S tocking Off/Removed bilateral knee high [facility] 03-25-2022 Functional Status Gait belt, Bilateral handrails [facility] 03-25-2022 Functional Status Demonstrates Correct Ca ll Light Use Yes [facility] 03-24-2022 Functional Status [facility] 03-24-2022 Functional Status [facility] 03-24-2022 Functional Status [facility] 03-23-2022 Functional Status [facility] 03-23-2022 Functional Status Lunch Percent 100 [facility] [place] 03-23-2022 Functional Status 100 [facility] 03-22-2022 Functional Status [facility] 03-20-2022 Functional Status [facility] 03-19-2022 Functional Status [facility] 03-18-2022 Functional Status Dinner Percent 100 [facility] 03-18-2022 Functional Status Activity Statu s ADL Awake, Up to chair, Watching TV [facility] 03-18-2022 Functional Status Independent [facility] 03-17-2022 Functional Status Single level h ome, 1st floor bedroom, 1st floor bathroom, basement laundry [facility] 03-17-2022 Functional Status [facility] 03-16-2022 Functional Status son Claudio - singh pport system no POA per pt report but brother Gavin is listed [facility] 03-16-2022 Functional Status [facility] 03-15-2022 Functional Status [facility] 03-15-2022 Functional Status Sensory Deficits None A oumarabbie [place] 03-15-2022 Functional Status Room check performed [facility] 03-15-[facility] 03-15-[facility] Functional Status [facility] 03-14-2022 Functional Status [facility] 03-13-2022 Functional Status Lunch Percent 95 [facility] 03-12-2022 Functional Status [facility] 03-12-2022 Functional Status Min A 10, 11 [facility] 03-11-2022 Functional Status NPO Status Maintained A [facility] 03-11-2022 [facility] Date Assessment Result Facility 03-30-2022 Mental Status Orientation Oriented x 4 [facility] 03-30-2022 Mental Status [facility] 03-30-2022 Mental Status [facility] 03-28-2022 Mental Status [facility] 03-27-2022 Mental Status Oriented x 4 [facility] 03-26-2022 Mental Status [facility] 03-15-2022 Mental Status Orientation Oriented x 4 [facility] 03-15-2022 [facility] Status [facility] 03-15-[facility]22 Mental Status [facility] 03-14-2022 Mental Status Oriented x 4 [facility] Clinical Notes 03-10-2022 to 01-01-2025 Note Date & Type Note Facility 01-01-2025 Evaluation note Diagnosis Onset Date Resolution Diarrhea acute January 01, 2025 9:[address]am [facility] Services Work Phone: [phone]) 937-315611-15-2024 [facility] Medical Records Department [address] [place] [address] Discharge Summary 07/07/24 1340 MR#: [id number] Acct: [id number] Name: MONICA SPAIN Rep #: [id number] : 1950 73 From: Epi Tirado MD PCP: Dr. Levon Duke MD Status:DIS IN Location: [place] [address] Providers Date of Admission: 07/02/24 Primary Care [...] mobilizing in a wheelchair currently residing at [facility] who presents to [facility] ER complaining of generalized weakness and [...] degrees Fahrenheit with the staff at his [facility] noting hypoxia in the 85% range on [...] home steroids he was started at the skilled nursing (more content not included)...[facility]01-09-2024 NoteHNO ID: [id number] Author: CALEB ACKERMAN PA-C Service: ? Author Type: Physician Professor Of Pathology Type: Progress Notes Filed: 08/31/2023 18:26 Note Text: [facility] NEW PATIENT CLINIC NOTE [...] or procedures, and care coordination. VANCE [place], [place], PA-[facility]01-09-2024 NoteHNO ID: [id number] Author: SHONNA OVERTON RN Service: ? Author Type: Registered Nurse Type: Progress Notes Filed: 08/31/2023 18:26 Note Text: post void 56 ml, last void approx less than 1 hour ago. Pt unable to give sample at visit today. [facility] 03[facility] Discharge summary Date of Service 03/30/2022 Discharge Diagnosis 1. possible Seizure ([id number] - PNED) Additional Orders: Ordered: BMP,03/31/22 5:01:00 [...] status was obtained in the ED by [facility] house staff, determined to be [...] Result Date: March 28, 2022 Verified By: LEONID PRITCHETT, PALOMO Morales CLINICAL STATEMENT: IMPRESSION: No [...] discharged at this time to return to [place] for your therapy for your previous stroke. [...] Up with [facility] When Why: Skilled Where: [phone] Follow Up with PHYSICIAN, NONE When Within [...] Score No qualifying data available. Discharge Disposition care home facility. Digitally Signed by EPI ONEILL MD on 03/30/2022 04:50 PM [id number] Note Discharge Instructions Thank you for allowing [facility] to assist you with your healthcare needs. [...] discharged at this time to return to [place] for your therapy for your previous stroke. Your other medications were were not changed, follow-up with PCP as well as take your medications as prescribed. Follow Up Appointments Follow Up with [facility] When Why: Skilled Where: [phone] Follow Up with PHYSICIAN, NONE When Within [...] Duration: 30 Days Refills: 1 Pickup at [facility] Unchanged acetaminophen (Tylenol 325 mg oral tablet) [...] Once a day Pharmacy Information [id number]: [address], [place] [phone] Please take this list to your next [...] Follow these instructions at home: Medicines Take jiho-rij-hgckumn and prescription medicines only as told by [...] [place]., ask your local DMV (department of [employer]) when you can drive. Get plenty of [...] Document Reviewed: 10/27/2019 Elsevier Patient Education 2020 [employer] Additional Information VACCINATE! IT SAVES LIVES! Members of the community who have not yet received the COVID-19 vaccine and would like to receive it can visit one of [facility] vaccine clinics. There are many vaccine clinic locations within the [facility]. For locations and available times, please visit https://[email or web address].gov/. It is important to note that some COVID mobile vaccine clinics are held outdoors and may be canceled in rainy or stormy conditions. To learn more about pediatric vaccinations (ages 5-11), we invite you to visit the [facility] webpage. https://www.[facility].org/pages/7714-Sxysi-Amogthcdgdy-Qquzmmgjuf-Arlbp-Wkq stions.htmlTo learn more about the COVID-19 vaccine, we invite you to visit the [facility] website for a list of frequently asked questions. [email or web address]/Viuwsimi-bvt-Lfrswysw/szkyz-Ovmcxhb-Adcsxkywfe _Asked-Questions.pdf [facility] [employer] Patient Portal Access Instructions: Stay connected with your healthcare team and access your personal medical information anytime with the [facility] Patient Portal.If you would like a full copy of your medical records, please contact the [facility] Medical Records Department, Wednesday through Wednesday between 8a.m. and 4:30p.m. Please follow the directions below to access the portal: 1.Access the email account you provided upon registration to the [facility].2.Look for an invitation email from [facility].3.Open the email and access the invitation link: Accept Invitation to [facility]4.Fill in the required zamarripa to create your account. Sign into www.[email or web address] with your username and password that you [...] you will allow to register on the [facility] [employer] Patient Portal for access to your information. You can also access the [facility] Patient Portal on the YelloYello miky. Simply click on Health Records under [...] Call your local pharmacy or go to http://bit.FastBooking/5I5Mi0j to find one close to you.3.Make use of household items: Use cat litter or old coffee grounds to dispose medications if other options arenot available. Mix your drugs with these household products, seal them in an airtight container andthrow it into the garbage. Call [facility]: [phone] to be sure your drugs can be [...] COPY. Signatures Patient Education Materials Seizure, Adult, Xxds-ne-Kezs Medication Leaflets My discharge plan and instructions have been reviewed and explained to me and IJUDIT PATRICK N understand my current condition and have read and understand these discharge instructions. I have received a written copy of the plan/instructions. If I have questions, I am aware that I should contact my doctor. Patient/Handyperson Signature: Date/Time: Relationship to Patient: Witness Name/Signature: Date/Time: [facility] HospitalXezmntqu61-47-2512 Note MEDICAL TEACHING SERVICE ATTENDING PHYSICIAN NOTE I was present for, and personally supervised, the delong components of the patient's evaluation and management by the [facility] house staff today. I have [...] Brother Gavin present POA: X Nursing staff invasive manager/SW PT/OT/RT/Speech Rx X Pharm. D. Structural Engineer(s): This note was transcribed via voice recognition software and may contain typographical errors. Randolph Dhillon MD, FACP, [facility] Digitally Signed by RANDOLPH DHILLON MD on 03/30/2022 05:36 PM [facility] HospitalLllyddsn67-34-1026 Discharge summary Date of Service 03/30/2022 Discharge Diagnosis 1. possible Seizure ([id number] - PNED) Additional Orders: Ordered: BMP,03/31/22 5:01:00 [...] seizure onset, where patient was admitted with [facility] for recovery. Patient was given [...] discharged at this time to return to [place] for your therapy for your previous stroke. [...] Up with [facility] When Why: Skilled Where: [phone] Follow Up with PHYSICIAN, NONE When Within [...] Score No qualifying data available. Discharge Disposition care home facility. Digitally Signed by EPI ONEILL MD on 03/30/2022 04:50 PM [facility] HospitalHdsgutux65-94-3254 Note Discharge Instructions Thank you for allowing [facility] to assist you with your healthcare needs. [...] discharged at this time to return to [place] for your therapy for your previous stroke. Your other medications were were not changed, follow-up with PCP as well as take your medications as prescribed. Follow Up Appointments Follow Up with [facility] When Why: Halie Where: [phone] Follow Up with PHYSICIAN, NONE When Within [...] Duration: 30 Days Refills: 1 Pickup at [facility] #52829 Unchanged acetaminophen (Tylenol 325 mg oral tablet) [...] Once a day Pharmacy Information [id number]: [address], [place] [phone] Please take this list to your next [...] Follow these instructions at home: Medicines Take leth-zjh-nyxcenu and prescription medicines only as told by [...] [place]., ask your local DMV (department of [employer]) when you can drive. Get plenty of [...] Document Reviewed: 10/27/2019 Elsevier Patient Education 2020 [employer]. Additional Information VACCINATE! IT SAVES LIVES! Members of the community who have not yet received the COVID-19 vaccine and would like to receive it can visit one of [facility] vaccine clinics. There are many vaccine clinic locations within the [facility]. For locations and available times, please visit https://[email or web address].[place].gov/. It is important to note that some COVID mobile vaccine clinics are held outdoors and may be canceled in rainy or stormy conditions. To learn more about pediatric vaccinations (ages 5-11), we invite you to visit the [facility] webpage. https://www.[employer].org/pages/7103-Olvgr-Ferdxammaxq-Lgememoljj-Jdrre-Fvl stions.htmlTo learn more about the COVID-19 vaccine, we invite you to visit the [employer] website for a list of frequently asked questions. https://[employer]/assets/Wnpxcurz-qag-Gujhlbua/azuwi-Imrevpa-Atxairfamn _Asked-Questions.pdf [facility] Patient Portal Access Instructions: Stay connected with your healthcare team and access your personal medical information anytime with the [facility] Patient Portal.If you would like a full copy of your medical records, please contact the [facility] Medical Records Department, Wednesday through Wednesday between 8a.m. and 4:30p.m. Please follow the directions below to access the portal: 1.Access the email account you provided upon registration to the hospital.2.Look for an invitation email from [facility].3.Open the email and access the invitation link: Accept Invitation to [facility]4.Fill in the required zamarripa to create your account. Sign into www.[employer] with your username and password that you [...] you will allow to register on the [employer] Patient Portal for access to your information. You can also access the [employer] Patient Portal on the YelloYello miky. Simply click on Health Records under Photos I Like and then click on the [employer] logo. HOW TO SAFELY DISPOSE OF PRESCRIPTION [...] Call your local pharmacy or go to http://[employer].FastBooking/5A2Np0o to find one close to you.3.Make use of household items: Use cat litter or old coffee grounds to dispose medications if other options arenot available. Mix your drugs with these household products, seal them in an airtight container andthrow it into the garbage. Call [facility]: [phone] to be sure your drugs can be [...] COPY. Signatures Patient Education Materials Seizure, Adult, Vozz-gc-Hygk Medication Leaflets My discharge plan and instructions have been reviewed and explained to me and I,MONICA SPAIN understand my current condition and have read and understand these discharge instructions. I have received a written copy of the plan/instructions. If I have questions, I am aware that I should contact my doctor. Patient/Handyperson Signature: Date/Time: Relationship to Patient: Witness Name/Signature: Date/Time: [facility] HospitalEpmnmvsl29-36-0964 Progress note Date of Service February 26, [...] stays. If he needs to go to [place] he can do MRI as an outpatient. Ordered MRI should not hamper patient's discharge to [place]. Will order 0.5 mg IV Ativan before [...] RYLAND RAMIREZ MD on 03/29/2022 12:12 PM [facility] [id number] Note ORIGINAL EXAMINATION: MRI OF THE BRAIN [...] Sign Date: 03/29/2022 5:30:08 PM Ordering Provider: [facility]08-07-2022 Note ORIGINAL EXAMINATION: MRI OF THE [...] Date: 03/29/2022 5:30:08 PM Ordering Provider: NERY [facility]08-07-2022 Progress note Date of Service February [...] stays. If he needs to go to [place] he can do MRI as an outpatient. Ordered MRI should not hamper patient's discharge to [place]. Will order 0.5 mg IV Ativan before [...] RYLAND RAMIREZ MD on 03/29/2022 12:12 PM [facility] [id number] Note Date of Service 03/28/2022 Chief Complaint seizure Subjective Patient seen and examined at bedside this morning. He was reportedly ready to go back to [place] to continue PT at this time, but this was later discontinued as [place] did not have availability atthis time. Patient [...] as tolerated - PT/OT provided here in [place] - D/C back to [place] hopefully tomorrow now as bed is no [...] RANDOLPH DHILLON MD on 03/30/2022 06:21 AM [facility] HospitalIfcaxgpq91-36-3648 Note MEDICAL TEACHING SERVICE ATTENDING PHYSICIAN NOTE I was present for, and personally supervised, the delong components of the patient's evaluation and management by the [facility] house staff today. I have [...] Additional comments, if any: Seen with the [facility] Service resident team earlier today and evaluated comprehensively. Appreciate Dr. Prasad's guidance. Recommendation for precautionary repeat MRI, this time with contrast, discussed with Mr. Spain. He strongly desires to defer that and return to [place] for therapy. We are attempting to facilitate that for later today. Please resume PT and OT while here if that is not feasible, as we certainly do not want him to fall behind in his therapy. DISCUSSED IN DETAIL WITH (Note: with patient s permission when applicable): X Patient Family: POA: X Nursing staff invasive manager/SW PT/OT/RT/Speech Rx Pharm. D. X Structural Engineer(s): Shanice This note was transcribed via voice recognition software and may contain typographical errors. Randolph Dhillon MD, FACP, [facility] Digitally Signed by RANDOLPH DHILLON MD on 03/28/2022 03:25 PM [facility] [id number] Neurology Consult note Date of Service March [...] was significantly fatigued. He was sent to [facility]. Of note he started Zoloft on March [...] Exam Mental Status: Orientation: oriented to person, [facility], and date Language: normal fluency, normal [...] P 3 2 Toes up down Coordination: Tghwco-isgs-whigrh movements intact on the left Lab Results [...] 15 mg= 1 tab(s), Oral, qHS nystatin, 527708 unit(s)= 5 mL, Oral, QID thiamine, 100 [...] Oral, qHS nystatin 100,000 units/mL oral suspension, 452475 unit(s)= 5 mL, Oral, QID thiamine 100 [...] JOSAFAT PRASAD MD on 03/28/2022 12:08 PM [facility] HospitalRgguapao46-33-8944 Hospital Discharge instructions Patient Education 03/28/2022 13:12:04 Seizure, Adult, Fdxp-nj-Dhrx Seizure, Adult A seizure is a sudden [...] Follow these instructions at home: Medicines Take nash-jcu-lmmuwpl and prescription medicines only as told by [...] [place]., ask your local DMV (department of [employer]) when you can drive. Get plenty of [...] 01/25/2009 Document Revised: 10/27/2019 Document Reviewed: 10/27/2019 Im[employer]istx Patient Education 2020 [employer]. Follow Up Care 03/27/2022 11:30:57 With:Love sharpe [place] Address: [phone] When: Unknown Comments:Skilled With:PHYSICIANMAGDA Address:Unknown When:1-2 days [facility] 08-06-2022 Note Discharge Instructions Thank you for allowing [facility] to assist you with your healthcare needs. [...] discharged at this time to return to [place] for your therapy for your previous stroke. [...] Duration: 30 Days Refills: 1 Pickup at [facility] #20129 Unchanged acetaminophen (Tylenol 325 mg oral tablet) [...] by mouth Once a day [id number]: [address], [place] [phone] Please take this list to your next [...] Follow these instructions at home: Medicines Take wpyc-umi-xdtswdx and prescription medicines only as told by [...] [place]., ask your local DMV (department of [employer]) when you can drive. Get plenty of [...] Document Reviewed: 10/27/2019 Elsevier Patient Education 2020 [employer]. Additional Information VACCINATE! IT SAVES LIVES! Members of the community who have not yet received the COVID-19 vaccine and would like to receive it can visit one of [facility] vaccine clinics. There are many vaccine clinic locations within the [facility]. For locations and available times, please visit https://gettheshot.coronavirus.[place].gov/. It is important to note that some COVID mobile vaccine clinics are held outdoors and may be canceled in rainy or stormy conditions. To learn more about pediatric vaccinations (ages 5-11), we invite you to visit the [facility] webpage. https://www.[facility].org/pages/6622-Eydvb-Nmaeoovtvzp-Gdjwbygwda-Ahcjx-Gkm stions.htmlTo learn more about the COVID-19 vaccine, we invite you to visit the [facility] website for a list of frequently asked questions. https://[employer]/assets/Byokgdve-lob-Ooxjppur/ypfvn-Ygmzbry-Scklkukbqj _Asked-Questions.pdf [facility] [employer] Patient Portal Access Instructions: Stay connected with your healthcare team and access your personal medical information anytime with the [facility] Patient Portal.If you would like a full copy of your medical records, please contact the [facility] Medical Records Department, Wednesday through Wednesday between 8a.m. and 4:30p.m. Please follow the directions below to access the portal: 1.Access the email account you provided upon registration to the [facility].2.Look for an invitation email from [facility].3.Open the email and access the invitation link: Accept Invitation to [facility]4.Fill in the required zamarripa to create your account. Sign into www.[employer] with your username and password that you [...] you will allow to register on the [facility] Patient Portal for access to your information. You can also access the [facility] Patient Portal on the [employer] miky. Simply click on Health Records under Photos I Like and then click on the [employer] logo. HOW TO SAFELY DISPOSE OF PRESCRIPTION [...] Call your local pharmacy or go to http://[employer].FastBooking/9D4Ge6l to find one close to you.3.Make use of household items: Use cat litter or old coffee grounds to dispose medications if other options arenot available. Mix your drugs with these household products, seal them in an airtight container andthrow it into the garbage. Call [facility]: [phone] to be sure your drugs can be [...] COPY. Signatures Patient Education Materials Seizure, Adult, Brnv-hb-Zbhp Medication Leaflets My discharge plan and instructions have been reviewed and explained to me and I,MONICA SPAIN understand my current condition and have read and understand these discharge instructions. I have received a written copy of the plan/instructions. If I have questions, I am aware that I should contact my doctor. Patient/Handyperson Signature: Date/Time: Relationship to Patient: Witness Name/Signature: Date/Time: [facility] [id number] Neurology Consult note Date of Service March [...] was significantly fatigued. He was sent to [place]. Of note he started Zoloft on March [...] Exam Mental Status: Orientation: oriented to person, [facility], and date Language: normal fluency, normal [...] P 3 2 Toes up down Coordination: Jrnivi-jqmj-qtgebo movements intact on the left Lab Results [...] 15 mg= 1 tab(s), Oral, qHS nystatin, 554989 unit(s)= 5 mL, Oral, QID thiamine, 100 [...] Oral, qHS nystatin 100,000 units/mL oral suspension, 537579 unit(s)= 5 mL, Oral, QID thiamine 100 [...] JOSAFAT PRASAD MD on 03/28/2022 12:08 PM [facility] HospitalZvxtuwra78-70-0619 Note ORIGINAL EXAMINATION: ONE XRAY VIEW OF [...] Sign Date: 03/28/2022 8:06:05 AM Ordering Provider: [facility]08-06-2022 Note ORIGINAL EXAMINATION: ONE XRAY VIEW [...] Sign Date: 03/28/2022 8:06:05 AM Ordering Provider: [facility]08-05-2022 History and physical note Date of Service [...] RANDOLPH DHILLON MD on 03/28/2022 08:05 AM [facility] [id number] Note [facility] TEACHING SERVICE ATTENDING PHYSICIAN ADMISSION NOTE I was present for, and personally supervised, the delong components of the patient's admission evaluation and management by the [facility] house staff today. I have [...] pleasant gentleman. Equally pleasant son Claudio and xdbtqdwc-ev-huq were present. From Mr. Spain's description, it [...] may contain typographical errors. [facility] Dhill[facility], [facility] Digitally Signed by RANDOLPH DHILLON MD on 03/27/2022 06:00 PM [facility] [id number] Evaluation + Plan noteExtracted from: Title:History and [...] * Stool for Occult Blood (Lab) 03/27/22 [facility] 08-05-2022 Note ORIGINAL EXAMINATION: ONE XRAY VIEW [...] Sign Date: 03/27/2022 1:19:45 PM Ordering Provider: [facility]08-05-2022 Note ORIGINAL HISTORY: Seizure COMPARISON: 13 days [...] Sign Date: 03/27/2022 1:03:24 PM Ordering Provider: [facility]08-05-2022 Note ORIGINAL HISTORY: Seizure COMPARISON: 13 days [...] Sign Date: 03/27/2022 1:03:24 PM Ordering Provider: [facility]08-05-2022 Physical medicine and rehab Progress note Date [...] [facility] [facility] assist mobility Objective Vitals and Measurements T: [...] Follow vitals 4. Hyperlipidemia Orders: Transfer to [place] ED Weight New onset seizure. Emergency department evaluation Time Spent 25 minutes Digitally Signed by LEVON CARTER DO on 03/27/2022 12:54 PM [place] Pxhkhamm09-06-1141 Note ORIGINAL EXAMINATION: ONE XRAY VIEW OF [...] Date: 03/27/2022 1:19:45 PM Ordering Provider: KALEN [facility]08-05-2022 Nurse Progress note REVIEW FAXED TO GUCCI HERNADEZ GUILLOTINE TRIMMER. Digitally Signed by GILMER Levi on 03/27/2022 09:35 AM [facility] Loczjxef07-07-7306 Nurse Progress note Patient found laying on the floor. He said his chair had slipped out from under him and that his left leg started to shake when he tried to stand up. No injuries noted. Patient is at his neurologicalbaseline. Physician notified at this time. Digitally Signed by Agapito Boyd RN on 03/26/2022 06:10 PM [facility] McdonnellBkeuqpgf14-90-4717 Nurse Progress note Nursing GG Entered On: 03/26/2022 17:30 EDT Performed On: 03/26/2022 17:30 EDT by Iris Irving RN Nursing GG's OT GG Grid Eating : Set up & Clean up Iris Irving RN - 03/26/2022 17:30 EDT Digitally Signed by Iris Irving RN on 03/26/2022 05:30 PM [facility] HudsonByyiqbqi64-90-1584 Nurse Progress note Nursing GG Entered On: 03/26/2022 10:17 EDT Performed On: 03/26/2022 10:17 EDT by Iris Irving RN Nursing GG's OT GG Grid Eating : Independent Oral Hygiene : Set up & Clean up Iris Irving RN - 03/26/2022 10:17 EDT Digitally Signed by Iris Irving RN on 03/26/2022 10:17 AM [facility] HudsonYhockrge49-33-0791 Physical medicine and rehab Progress note Rehab [...] Rate18(MAR 26 03:03)16(MAR 25 16:22)18(MAR 25 07:38) TUE854(MAR 26 03:03)124(MAR 26 03:03)132(MAR 25 07:38) DBP60(MAR [...] CARTER DO on 03/27/2022 07:50 AM [facility] HudsonWvqtolef45-67-9868 Nurse Progress note Nursing GG Entered On: 03/25/2022 14:43 EDT Performed On: 03/25/2022 14:43 EDT by Maureen Johns RN Nursing GG's OT GG Grid Eating : Independent Maureen Johns RN - 03/25/2022 14:43 EDT Digitally Signed by Maureen Johns RN on 03/25/2022 02:43 PM [facility] HudsonBnkcdrdv57-55-7696 Physical medicine and rehab Progress note Date [...] CARTER DO on 03/25/2022 10:31 AM [facility] HudsonNtkibbjq21-33-0043 Nurse Progress note Nursing GG Entered On: 03/25/2022 3:14 EDT Performed On: 03/25/2022 3:14 EDT by Mojgan Marin RN Nursing GG's OT GG Grid Toilet Hygiene : Set up & Clean up Toilet Transfer : Substantial/Maximal Assistance Mojgan Marin RN - 03/25/2022 3:14 EDT Digitally Signed by Mojgan Marin RN on 03/25/2022 03:14 AM [facility] HudsonNapmqyht06-36-3475 Nurse Progress note RECEIVED PHONE CALL FROM GUCCI GARCIA GUILLOTINE TRIMMER WITH APPROVAL FOR CONTINUED STAY AND NEXT REVIEW DATE-03/27. Digitally Signed by GILMER Levi on 03/24/2022 09:22 AM [facility] BhardwajFxbclfve98-10-7705 Physical medicine and rehab Progress note Rehab [...] Rate18(MAR 23 16:31)18(MAR 23 09:06)18(MAR 23 09:06) YQH821(MAR 23 16:31)136(MAR 23 16:31)H 148(MAR 23 09:06) [...] CARTER DO on 03/24/2022 02:32 PM [facility] HudsonLphaqotq20-30-7004 Nurse Progress note Nursing GG Entered On: 03/23/2022 17:56 EDT Performed On: 03/23/2022 17:56 EDT by Bernice Nance RN Nursing GG's OT GG Grid Toilet Transfer : Substantial/Maximal Assistance Sit to lying : Substantial/Maximal Assistance Lying to sitting on side of bed : Substantial/Maximal Assistance Sit to stand : Substantial/Maximal Assistance Chair/nnz-yh-yinlg transfer : Substantial/Maximal Assistance Bernice Nance RN - 03/23/2022 17:56 EDT Digitally Signed by Bernice Nance RN on 03/23/2022 05:56 PM [facility] HudsonXblgxdde08-30-6420 Physical medicine and rehab Progress note Rehab [...] Rate18(MAR 22 23:04)18(MAR 22 08:51)18(MAR 22 08:51) DCB406(MAR 22 23:04)136(MAR 22 23:04)H 144(MAR 22 08:51) [...] CARTER DO on 03/23/2022 01:48 PM [facility] Ulzaxnrl03-09-0938 Physical medicine and rehab Progress note Date [...] LEVON CARTER DO on 03/22/2022 11:37 AM [facility] Progress note Nursing GG Entered On: 03/21/2022 4:01 EDT Performed On: 03/21/2022 4:00 EDT by Mojgan Marin RN Nursing GG's OT GG Grid Toilet Hygiene : Set up & Clean up Toilet Transfer : Partial/Moderate Mojgan Marin RN - 03/21/2022 4:00 EDT Digitally Signed by Mojgan Marin RN on 03/21/2022 04:00 AM Lorinreese HudsonQfcwiqxs80-34-3124 Nurse Progress note Clinicals faxed to [employer] of [employer] and fax confirmation was received. Authorization [id number]. Digitally Signed by GILMER Moore on 03/20/2022 03:32 PM [facility]4864 Physical medicine and rehab Progress note Date [...] CARTER DO on 03/20/2022 12:50 PM [facility] HudsonQjvnbbju63-90-4905 Nurse Progress note Nursing GG Entered On: 03/20/2022 10:39 EDT Performed On: 03/20/2022 10:38 EDT by Kathy Miramontes LPN Nursing GG's OT GG Grid Eating : Independent Kathy Miramontes LPN - 03/20/2022 10:38 EDT Digitally Signed by Kathy Miramontes LPN on 03/20/2022 10:38 AM [facility] HudsonMqakjvlk82-27-7290 Nurse Progress note Nursing GG Entered On: 03/19/2022 16:47 EDT Performed On: 03/19/2022 16:46 EDT by Kathy Miramontes LPN Nursing GG's OT GG Grid Eating : Set up & Clean up Kathy Miramontes LPN - 03/19/2022 16:46 EDT Digitally Signed by Kathy Miramontes LPN on 03/19/2022 04:46 PM [facility] HudsonLnrwutas98-44-3654 Nurse Progress note Nursing GG Entered On: [...] Substantial/Maximal Assistance Sit to stand : Dependent Chair/jgs-yh-ktbtd transfer : Dependent Picking up object : Set up & Clean up Kathy Miramontes LPN - 03/19/2022 13:13 EDT Digitally Signed by Kathy Miramontes LPN on 03/19/2022 01:13 PM [facility] HudsonVykclyht21-68-1507 Physical medicine and rehab Progress note Date [...] LEVON CARTER DO on 03/19/2022 11:32 AM [facility]75 Note Subjective Patient is resting in bed [...] in urinal Neurovascular: Right-sided hemiparesis ongoing VITALS PhcofvAgcqKBDlrfqGQFoX7FDR9QwtlYt(kg) 03/19 05:5536.5--288491LZ22/24 80.9 03/18 16:3536.6112/49940110UF 03/18 08:2636.7158/18552011YA 03/17 16:1536.7138/81794649SO 03/17 08:4436.5138/[id number] 24 Hr Tmax: 36.7 at 03/18 08: [...] 1 tab(s), Oral, qDay, 1st dose location: [facility], 1, 03/15/22 18:12:00 EDT thiamine Start: 03/16/22 [...] x1 if still unresponsive., 1st dose location: [facility], 0, 03/15/22 17:39:00 EDT glucose (Dextrose 50% [...] Meds: None Problems (6) Alcoholism /alcohol abuse ([id number]) High blood pressure (69509999) Hyperlipidemia (04391581) Ischemic stroke (3589196721) Kidney stone (675696987) Pain (76695706) ASSESSMENT/PLAN: CVA with right-sided weakness and slurred [...] SAVANA SR on 03/20/2022 12:20 PM [facility] HudsonLgwwpaxj06-78-1826 Nurse Progress note Nursing GG Entered On: 03/18/2022 23:38 EDT Performed On: 03/18/2022 23:38 EDT by Lauro Zazueta RN Nursing GG's OT GG Grid Toilet Transfer : Substantial/Maximal Assistance Lauro Zazueta RN - 03/18/2022 23:38 EDT Digitally Signed by Lauro Zazueta RN on 03/18/2022 11:38 PM [facility] HudsonVqxpbxyr11-58-8805 Nurse Progress note Eating-02 Substantia/Maximal assistance Oral hygiene-02 Substantial/Maximal assistance Toileting hygiene-01 Dependent Shower/bathe self-02 Substantial/Maximal assistance Upper body dressing-02 Substantial/Maximal assistance Lower body dressing-02 Substantial/Maximal assistance Putting on/Taking off footwear-01 Dependent Roll left and right-02 Substantial/Maximal assistance Sit to lying-01 Dependent Lying to sitting on side of bed-02 Substantial/Maximal assistance Sit to stand-01 Dependent Chair/cyg-pt-mtrxb transfers-02 Substantial/Maximal assistance Toilet transfers-02 Substantial/Maximal assistance [...] GILMER Moore on 03/18/2022 07:34 PM [facility] HudsonOpktbfqw11-38-9780 Nurse Progress note Nursing GG Entered On: 03/18/2022 17:02 EDT Performed On: 03/18/2022 17:02 EDT by Beryl Elias RN Nursing GG's OT GG Grid Eating : Set up & Clean up Beryl Elias RN - 03/18/2022 17:02 EDT Digitally Signed by Beryl Elias RN on 03/18/2022 05:02 PM [facility] HudsonVftzjdrk04-32-9598 Note REFERRING PHYSICIAN: Levon Carter DO. CONSULTING PSYCHOLOGIST: Zachary Rome, PhD. REASON FOR REFERRAL: Neuropsychological exam. HISTORY OF PRESENT ILLNESS: Mr. Spain is a 71-year-old right-handed white male admitted to [facility] 03/15/2022 from [facility] with acute onset of left subcortical structures [...] because of smoking habit, hypertension, hyperlipidemia. 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 No mental health history [...] droop on the right as well with yqie-el-lozkvhwp dysarthria. His dysphagia has improved sufficiently. He [...] and eating poorly. Mr. Spain lives in [place] in a house, alone. . Has son, Claudio. For support, he lists brothers who live in [place]. 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 He has a high school diplomafrom Fili [...] a 71-year-old right-handed white male admitted to [facility] 03/15/2022 after developing a [...] treatment and discharge planning. Cognitive testing reveals zuzm-tx-buqwpjys deficits in visual attention, verbal delayed memory [...] last diagnosis. ZACHARY ROME, PhD GM/NTS JOB#: [id number] DICTATION ID#: [id number] Digitally Signed by ZACHARY ROME PhD on 03/25/2022 01:30 PM [facility] HudsonWjlmulww76-13-0180 Nurse Progress note Nursing GG Entered On: 03/18/2022 11:32 EDT Performed On: 03/18/2022 11:32 EDT by Beryl Elias RN Nursing GG's OT GG Grid Eating : Set up & Clean up Beryl Elias RN - 03/18/2022 11:32 EDT Digitally Signed by Beryl Elias RN on 03/18/2022 11:32 AM [facility] HudsonJvajzlzs34-55-4602 Physical medicine and rehab Progress note Date [...] LEVON CARTER DO on 03/18/2022 10:16 AM [facility] DaytonWsadiogx24-31-4560 Nurse Progress note A complete drug regime review was completed. No potential clinically significant medication issues were found. Digitally Signed by GILMER Mooreela Benson on 03/18/2022 09:28 AM [facility] DaytonYemmrftm79-70-6060 Note Subjective Patient states he is doing [...] No open areas Neurovascular: Right-sided hemiparesis VITALS OktqlfBopnUCFmkcoYNNaN4LBZ6IpcsGa(kg) 03/17 16:1536.7138/23480138AZ58/24 80.9 07/26 08:4436.5138/08403920DL 03/17 05:36--148/8090--97RA 03/16 15:4036.8144/64637707SU 03/16 08:1436.6140/57534479CM 24 Hr Tmax: 36.7 at 03/17 16:15 [...] 1 tab(s), Oral, qDay, 1st dose location: [facility], 1, 03/15/22 18:12:00 EDT thiamine Start: 03/16/22 [...] x1 if still unresponsive., 1st dose location: [facility], 0, 03/15/22 17:39:00 EDT glucose (Dextrose 50% [...] Meds: None Problems (6) Alcoholism /alcohol abuse ([id number]) High blood pressure (48070102) Hyperlipidemia (30115332) Ischemic stroke (2628718487) Kidney stone (113521949) Pain (56244241) ASSESSMENT/PLAN: CVA with right-sided weakness and slurred [...] SR APRN-NAYLA on 03/19/2022 08:10 AM [place] HudsonQyaozebw95-50-3355 Nurse Progress note Nursing GG Entered On: 03/18/2022 0:32 EDT Performed On: 03/18/2022 0:31 EDT by Lauro Zazueta RN Nursing GG's OT GG Grid Toilet Transfer : Substantial/Maximal Assistance Lauro Zazueta RN - 03/18/2022 0:31 EDT Digitally Signed by aLuro Zazueta RN on 03/18/2022 12:31 AM [place] HudsonOvalgiea41-71-1531 Nurse Progress note Nursing GG Entered On: 03/17/2022 19:39 EDT Performed On: 03/17/2022 19:39 EDT by Lauro Zazueta RN Nursing 's OT GG Grid Eating : Set up & Clean up Lauro Zazueta RN - 03/17/2022 19:39 EDT Digitally Signed by Lauro Zazueta RN on 03/17/2022 07:39 PM [facility]in HdusonOatunpys50-39-6228 Nurse Progress note Nursing GG Entered On: 03/17/2022 10:58 EDT Performed On: 03/17/2022 10:58 EDT by Beryl Elias RN Nursing 's OT GG Grid Eating : Set up & Clean up Beryl Elias RN - 03/17/2022 10:58 EDT Digitally Signed by Beryl Elias RN on 03/17/2022 10:58 AM [place] HudsonKputvner55-14-1808 Note Subjective Patient reports that he is [...] is red but without skin impairment. VITALS NtyfmxEoowILRgopeIXMjZ1NWE3RaftRr(kg) 03/17 05:36--148/8090--97RA03/15 80.9 03/16 15:4036.8144/30208559BQ 03/16 08:1436.6140/56438344UP 03/15 23:23--150/38448585JZ 03/15 21:0736.3152/06557455TU 24 Hr Tmax: 36.8 at 03/16 15:40 [...] 1 tab(s), Oral, qDay, 1st dose location: [facility], 1, 03/15/22 18:12:00 EDT thiamine Start: 03/16/22 [...] x1 if still unresponsive., 1st dose location: [facility], , 03/15/22 17:39:00 EDT glucose (Dextrose 50% [...] Meds: None Problems (6) Alcoholism /alcohol abuse ([id number]) High blood pressure (14943996) Hyperlipidemia (84844759) Ischemic stroke (8465697411) Kidney stone (494580265) Pain (71711632) ASSESSMENT/PLAN: CVA with right-sided weakness and slurred [...] and complete. Digitally Signed by SAVANA SR APRN-[facility] on 03/19/2022 08:13 AM [facility] HudsonGkafpvuq59-82-9781 Nurse Progress note Nursing GG Entered On: 03/16/2022 17:14 EDT Performed On: 03/16/2022 17:13 EDT by Maureen Johns RN Nursing GG's OT GG Grid Eating : Independent Maureen Johns RN - 03/16/2022 17:13 EDT Digitally Signed by Maureen Johns RN on 03/16/2022 05:13 PM [place] HudsonMxwuiruy70-88-1994 History and physical note Date of Service [...] CARTER DO on 03/18/2022 10:12 AM [place] HudsonIrhimzgy26-75-8736 Nurse Progress note Patient received and acknowledged the privacy act statement and the data collection information summary on admission. Patient also received and acknowledged the rehab disclosure form with the expected therapy and that he has [employer]. Digitally Signed by GILMER Moore on 03/16/2022 03:32 PM [facility]in HudsonCfvhzouj74-31-4139 Evaluation + Plan noteExtracted from: Title:Rehab Post [...] Length of Stay 3 weeks Lorin Hudson [id number] Nurse Progress note Nursing GG Entered On: 03/16/2022 10:26 EDT Performed On: 03/16/2022 10:26 EDT by Maureen Johns RN Nursing GG's OT GG Grid Eating : Independent Maureen Johns RN - 03/16/2022 10:26 EDT Digitally Signed by Maureen Johns RN on 03/16/2022 10:26 AM [facility] HudsonCfeljjjl39-28-1009 Nurse Progress note Nursing GG Entered On: 03/16/2022 6:07 EDT Performed On: 03/16/2022 6:07 EDT by Mojgan Marin RN Nursing GG's OT GG Grid Toilet Hygiene : Set up & Clean up Mojgan Marin RN - 03/16/2022 6:07 EDT Digitally Signed by Mojgan Marin RN on 03/16/2022 06:07 AM [place] HudsonMzzkhanp64-10-5979 Nurse Progress note Admission skin check done, no areas of concern noted Digitally Signed by Mojgan Marin RN on 03/15/2022 08:25 PM [facility] HudsonBcftqqcj16-33-8522 Nurse Progress note Admission skin check done, no areas of concern noted Digitally Signed by Mojgan Marin RN on 03/15/2022 08:25 PM Lorin Bello-24-2022 Hospital Discharge instructions Follow Up Care 03/15/2022 17:31:22 With:HERMINIA MANZANO PA-C Address: [address] [place] [address] [address] [place] [address] [phone] When:04/21/2022 13:10:00 Comments:Neurology follow up Lorin Hudson 07-24-2022 Hospital Discharge instructions Patient Education 03/15/2022 16:47:49 Stroke Prevention, Djrr-qp-Ekrn Stroke Prevention Some medical conditions and lifestyle [...] only healthy fats for cooking. These include: ?Wingdale oil. ?Canola oil. ?[place] oil. ?Counting how many carbohydrates you eat [...] ?Snoring a lot. ?Feeling very tired. Take cbha-osh-rvbnhaz and prescription medicines only as told by your doctor. These may include aspirin or blood thinners (antiplatelets or anticoagulants). Make sure that any other medical conditions you have are managed. Where to find more information [place] Stroke Association: www.strokeassociation.org National Stroke Association: www.stroke.org [...] 02/07/2013 Document Revised: 10/05/2019 Document Reviewed: 11/10/2017 Else[employer]aved[employer] Patient Education 2020 [employer] Follow Up Care 03/10/2022 18:33:21 With:Follow up with primary care provider Address: When:5 to 7 days With:[facility] Address: When: Unknown Comments:f/u in 4-6 weeks With:Abiola Mckeon, [id number] Address: When: Unknown Comments:Rehab room 142 With:KATHY OLSON MD, [facility], Surgery, Vascular Surgeons Address: [address] [place] [address] [phone] When: only if needed Comments:call for appt 3mos With:[facility] Address: When: Unknown Comments:A 30-day event monitor ([facility]) will be mailed to your home. Results can be obtained by Outpatient Neurology [facility] 07-24-2022 Note Discharge Instructions Thank you for allowing [place] to assist you with your healthcare needs. The following is importantdischarge information regarding your hospital visit. Your Care Team PHYSICIAN, NONE Your Diagnosis Potential stroke What to do next Instructions From Your Doctor - You will be started on daily aspirin, statin, as well as losartan. Please take medication as prescribed. -Being discharged to [facility] [place] for temporary rehab - Please follow-up with-neurology [...] 7 days Where: Follow Up with [facility] When Why: f/u in 4-6 weeks Where: Follow Up with Abiola Mckeon, [id number] When Why: Rehab room 142 Where: Follow Up with KATHY OLSON MD, [facility], Surgery, Vascular Surgeons When Only if needed Why: call for appt 3mos Where: [id number] [facility] [place] [place] [address] [phone] Follow Up with [facility] When Why: A [...] Days Refills: 3 Pickup at [facility] New atorvastatin (atorvastatin 80 mg oral tablet) 1 tab(s) by mouth Once a day Duration: 30 Days Refills: 2 Pickup at [facility] #58972 New losartan (losartan 25 mg oral tablet) 1 tab(s) by mouth Once a day Duration: 30 Days Refills: 2 Pickup at [facility]327 Pharmacy Information [id number]: [address], [place] [phone] What How Much When Comments Stop Taking [...] healthy fats for cooking. These include: ? Wingdale oil. ? Canola oil. ? [place]cc[place] oil. ? Counting how many carbohydrates you [...] a lot. ? Feeling very tired. Take iqau-euu-ntbwpge and prescription medicines only as told by your doctor. These may include aspirin or blood thinners (antiplatelets or anticoagulants). Make sure that any other medical conditions you have are managed. Where to find more information [place] Stroke Association: www.strokeassociation.org National Stroke Association: www.stroke.org [...] Document Reviewed: 11/10/2017 Elsevier Patient Education 2020 [employer] Additional Information VACCINATE! IT SAVES LIVES! Members of the community who have not yet received the COVID-19 vaccine and would like to receive it can visit one of [facility] vaccine clinics. There are many vaccine clinic locations within the [facility]. For locations and available times, please visit https://gettheshot.coronavirus.[place].gov/. It is important to note that some COVID mobile vaccine clinics are held outdoors and may be canceled in rainy or stormy conditions. To learn more about pediatric vaccinations (ages 5-11), we invite you to visit the [facility] webpage. https://www.[facility].org/pages/5239-Cgznr-Nhdiusoigyp-Aqpjntcbhf-Chufi-Qet stions.htmlTo learn more about the COVID-19 vaccine, we invite you to visit the [facility] website for a list of frequently asked questions. [email or web address]://[email or web address]/assets/Cbahbszd-gle-Mkooklof/szzog-Soujmsx-Vpetnhtsad _Asked-Questions.pdf [facility] Patient Portal Access Instructions: Stay connected with your healthcare team and access your personal medical information anytime with the [facility] Patient Portal.If you would like a full copy of your medical records, please contact the [facility] Medical Records Department, Wednesday through Wednesday between 8a.m. and 4:30p.m. Please follow the directions below to access the portal: 1.Access the email account you provided upon registration to the hospital.2.Look for an invitation email from [facility].3.Open the email and access the invitation link: Accept Invitation to [facility]4.Fill in the required zamarripa to create your account. Sign into www.[employer] with your username and password that you [...] you will allow to register on the [facility] Patient Portal for access to your information. You can also access the [facility] Patient Portal on the [employer]elloY[employer] miky. Simply click on Health Records under Photos I Like and then click on the [facility] logo. [...] Call your local pharmacy or go to http://[employer].FastBooking/3N0Hw0r to find one close to you.3.Make use of household items: Use cat litter or old coffee grounds to dispose medications if other options arenot available. Mix your drugs with these household products, seal them in an airtight container andthrow it into the garbage. Call [facility]: [phone] to be sure your drugs can be [...] COPY. Signatures Patient Education Materials Stroke Prevention, Laby-ic-Cgrp Medication Leaflets My discharge plan and instructions have been reviewed and explained to me and IJUDIT PATRICK N understand my current condition and have read and understand these discharge instructions. I have received a written copy of the plan/instructions. If I have questions, I am aware that I should contact my doctor. Patient/Handyperson Signature: Date/Time: Relationship to Patient: Witness Name/Signature: Date/Time: [facility]0135 Note Discharge Instructions Thank you for allowing [facility] to assist you with your healthcare needs. The following is importantdischarge information regarding your hospital visit. Your Care Team PHYSICIAN, NONE Your Diagnosis Potential stroke What to do next Instructions From Your Doctor - You will be started on daily aspirin, statin, as well as losartan. Please take medication as prescribed. -Being discharged to [place] for temporary rehab - Please follow-up with-neurology [...] 7 days Where: Follow Up with [facility] When Why: f/u in 4-6 weeks Where: Follow Up with Abiola Mckeon, [address] When Why: Rehab room 142 Where: Follow Up with KATHY OLSON MD, [facility], Surgery, Vascular Surgeons When Only if needed Why: call for appt 3mos Where: [address] [facility] [address] [facility] [place] [address] [phone] Follow Up with [facility] When Why: A [...] to receive it can visit one of [facility] vaccine clinics. There are many vaccine clinic locations within the [facility]. For locations and available times, please visit https://gettheshot.[email or web address].[place].gov/. It is important to note that some COVID mobile vaccine clinics are held outdoors and may be canceled in rainy or stormy conditions. To learn more about pediatric vaccinations (ages 5-11), we invite you to visit the [facility] webpage. https://www.[employer].org/pages/2841-Hrbkj-Wdfuuczrsed-Yqocaqikxa-Iihff-Zmm stions.htmlTo learn more about the COVID-19 vaccine, we invite you to visit the [facility] website for a list of frequently asked questions. [email or web address]/Zauljozb-gvd-Jjbglkhy/zvtrg-Tuglztq-Ibsqtklgdk _Asked-Questions.pdf [facility] [employer] Patient Portal Access Instructions: Stay connected with your healthcare team and access your personal medical information anytime with the [facility] Patient Portal.If you would like a full copy of your medical records, please contact the [facility] Medical Records Department, Wednesday through Wednesday between 8a.m. and 4:30p.m. Please follow the directions below to access the portal: 1.Access the email account you provided upon registration to the [facility].2.Look for an invitation email from [facility].3.Open the email and access the invitation link: Accept Invitation to [facility]4.Fill in the required zamarripa to create your account. Sign into www.[employer] with your username and password that you [...] you will allow to register on the [employer] Patient Portal for access to your information. You can also access the [employer] Patient Portal on the [employer]. Simply click on Health Records under Photos I Like and then click on the [employer] logo. HOW TO SAFELY DISPOSE OF PRESCRIPTION [...] Call your local pharmacy or go to [email or web address] to find one close to you.3.Make use of household items: Use cat litter or old coffee grounds to dispose medications if other options arenot available. Mix your drugs with these household products, seal them in an airtight container andthrow it into the garbage. Call [facility]: [phone] to be sure your drugs can be [...] been reviewed and explained to me and I,UJDIT MONICA Paul understand my current condition and have read and understand these discharge instructions. I have received a written copy of the plan/instructions. If I have questions, I am aware that I should contact my doctor. Patient/Handyperson Signature: Date/Time: Relationship to Patient: Witness Name/Signature: Date/Time[id number] Discharge summary Date of Service 03/15/22 Discharge [...] 325 mg in ED and admitted to [facility] for evaluation of stroke. He [...] today. Patient being discharged to rehab facility [place] Patient to follow-up with primary care physician [...] Date: March 12, 2022 Verified By: EZEQUIEL APONET DO CLINICAL STATEMENT: IMPRESSION: Acute ischemic infarction [...] take medication as prescribed. -Being discharged to [place] for temporary rehab - Please follow-up with-neurology [...] 7 days Where: Follow Up with [facility] [place] When Why: f/u in 4-6 weeks Where: Follow Up with Abiola Mckeon, [id number] When Why: Rehab room 142 Where: Follow Up with KATHY OLSON MD, [facility], Surgery, Vascular Surgeons When Only if needed Why: call for appt 3mos Where: [address] [facility] [address] [facility] [place] [address] [id number] Follow Up with [facility] When Why: A [...] PM Digitally Signed by TRINA QUINTANILLA MD [facility] [id number] Note Date of Service 03/14/2022 Subjective Patient [...] MAIA REYES MD on 03/14/2022 08:05 PM [facility] HospitalYljuaave11-56-1499 Neurology Progress note Date of Service 03/15/2022 [...] JUSTEN SEPULVEDA MD on 03/15/2022 08:05 AM [facility] HospitalFmbtudnx11-74-6534 Note Date of Service 03/14/2022 Subjective Patient [...] MAIA REYES MD on 03/14/2022 08:05 PM [facility] HospitalSicpqfxy35-62-1200 Note ORIGINAL EXAMINATION: CT OF THE HEAD [...] 03/14/2022 7:01:39 PM Ordering Provider: MAIA REYES [facility] HospitalGrszsvfl11-84-7801 Note ORIGINAL EXAMINATION: CT OF THE HEAD [...] Sign Date: 03/14/2022 7:01:39 PM Ordering Provider: [facility]07-23-2022 Note Date of Service 03/13/2020 Subjective Patient [...] MAIA REYES MD on 03/13/2022 04:54 PM [facility] HospitalHvxlaacj60-85-5319 Note Date of Service 03/13/2020 Subjective Patient [...] MAIA REYES MD on 03/13/2022 04:54 PM [facility] HospitalRoncwgda12-36-9452 Vascular surgery Consult note Date of Service [...] KATHY OLSON MD on 03/13/2022 04:29 PM [facility] HospitalIcciqcab40-22-7740 Neurology Progress note Date of Service March [...] JOSAFAT PRASAD MD on 03/13/2022 12:15 PM [facility] HospitalXoghzoqa88-82-9926 Note ORIGINAL EXAMINATION: CT OF THE HEAD [...] 03/13/2022 10:19:45 AM Ordering Provider: GERA SYED [facility] HospitalUnlobfda74-34-5232 Note ORIGINAL EXAMINATION: CT OF THE HEAD [...] 03/13/2022 10:19:45 AM Ordering Provider: GERA AGARWAL [facility]07-22-2022 Note Date of Service 03/12/2022 Chief Complaint [...] MAIA REYES MD on 03/12/2022 04:51 PM [facility] HospitalIvpxymti32-49-5200 Note ORIGINAL EXAMINATION: MRI OF THE BRAIN [...] Sign Date: 03/12/2022 7:13:35 PM Ordering Provider: [facility]07-21-2022 Note ORIGINAL EXAMINATION: MRI OF THE [...] Sign Date: 03/12/2022 7:13:35 PM Ordering Provider: [facility]07-21-2022 Note Date of Service 03/12/2022 Chief Complaint [...] MAIA REYES MD on 03/12/2022 04:51 PM [facility] HospitalKsycwnqv44-34-6824 History and physical note Date of Service [...] 325 mg in ED and admitted to [facility] for eval of stroke. Review [...] drift in lower extremities, normal finger-nose and exhr-ok-eqqw as limited by his mild weakness, 4/5 [...] Esquivel Medical Student on 03/11/2022 06:42 AM [facility] HospitalBkkogcsk68-86-8045 Note Date of Service 03/11/2022 Chief Complaint [...] 2 days prior to admission -Placed on CILA protocol -Folate and B12 have been administered [...] MAIA REYES MD on 03/11/2022 06:50 PM [facility] HospitalAizgbteo30-17-8483 Note Date of Service 03/11/2022 Chief Complaint [...] MAIA REYES MD on 03/11/2022 06:50 PM [facility] HospitalZbnbukhc29-21-3205 Neurology Consult note Date of Service March [...] symptoms between the falls. He presented to [facility] [place]. He was admitted for further plans. Today [...] knowledge: gissell Brooke Orientation: oriented to person, [facility], and date Language: normal fluency, normal [...] A tr 1 Toes eq down Coordination: Awwlow-iggl-dwaiku movements intact on the left, limited by weakness on the right Osas-qtdu-baif movements deferred due to limited range of [...] JOSAFAT PRASAD MD on 03/11/2022 03:26 PM [facility] HospitalNdbvrvuq88-61-5128 History and physical note Date of Service [...] 325 mg in ED and admitted to [facility] for eval of stroke. Review [...] drift in lower extremities, normal finger-nose and sheb-jh-clau as limited by his mild weakness, 4/5 [...] Esquivel Medical Student on 03/11/2022 06:42 AM [facility] HospitalNvfuvkpb90-09-1652 Note ORIGINAL EXAMINATION: CTA OF THE HEAD [...] 03/10/2022 9:00:17 PM Ordering Provider: SHERIF ARGUELLO [facility] HospitalUuqyzntp26-79-4029 Note ORIGINAL EXAMINATION: CTA OF THE HEAD [...] Sign Date: 03/10/2022 9:00:17 PM Ordering Provider: [facility]07-19-2022 Note ORIGINAL EXAMINATION: CT OF THE HEAD [...] Sign Date: 03/10/2022 8:46:52 PM Ordering Provider: [facility]07-19-2022 Note ORIGINAL EXAMINATION: CTA OF THE [...] Sign Date: 03/10/2022 9:00:17 PM Ordering Provider: [facility]07-19-2022 Note ORIGINAL EXAMINATION: CTA OF THE [...] Date: 03/10/2022 9:00:17 PM Ordering Provider: SHERIF ARGUELLOLicking [facility] HospitalJelovcwi95-11-7368 Note ORIGINAL EXAMINATION: CT OF THE HEAD [...] Sign Date: 03/10/2022 8:46:52 PM Ordering Provider: [facility]07-19-2022 Note ORIGINAL EXAMINATION: ONE XRAY VIEW [...] Sign Date: 03/10/2022 7:37:15 PM Ordering Provider: [facility]07-19-2022 Note ORIGINAL EXAMINATION: ONE XRAY VIEW [...] Sign Date: 03/10/2022 7:37:15 PM Ordering Provider: [facility]07-19-2022 Evaluation + Plan note Extracted from: [...] the patient's evaluation and management by the [facility] house staff today. I have [...] permissive HTN, can proceed with BP control. [facility] Evaluation noteNo assessment information available [facility] Work Phone: Hospital course Narrative No data available for this section [facility] Reason for referral (narrative)No reason for referral information availableWCleveland Clinic [facility] Work Phone: Summary Purpose Family History [...] section and content) DATE CREATED AUTHOR 04/23/2022 [facility] ([place]) DATE CREATED AUTHOR AUTHOR'S ORGANIZ ATION 09/05/2023 [facility] DATE CREATED AUTHOR AUTHOR'S ORGANIZ ATION 01/29/2025 [facility] Care Teams (unrecognized sec tion and content) Team Status: Active Member Role Status Dates Dr. Levon Duke MD Primary Care Provider Active Team Status: Inactive Member Role Status Dates Dr. Levon Duke MD Primary Care Provider Active Start: December 02, 2024 End: December 02, 2024 Geetha Lara NP, LICENSING ANALYST-C Attending Provider Active S tart: December 02, [...] BE BASED ON THE PRIMARY CLINICAL RECORDS. [employer] provides no warranty or guarantee of the accuracy or completeness of information in this document.
--- NOTE | 2025-08-03 19:32 | ECHOCS_ITS ---
Reason For Study Reason For Study: TIA/CVA Procedure This was a 2D Doppler, Color Flow transthoracic echocardiogram. Contrast injection was performed. Exam performed portable in patient room. Left Ventricle Normal LV size. The estimated ejection fraction is 65 %. No evidence for diastolic dysfunction. No regional wall motion abnormalities noted. Right Ventricle Normal RV size. Normal systolic function. Atria The left and right atria are normal. No doppler evidence for ASD. Mitral Valve There is no mitral valve stenosis. No mitral valve insufficiency. Tricuspid Valve There is no tricuspid stenosis. Unable to estimate RV systolic pressure due to inadequate jet, pulmonary artery pressure probably normal. Aortic Valve Trisinus/trileaflet aortic valve. There is no aortic stenosis. No aortic valve insufficiency. Pulmonic Valve There is no pulmonic valvular stenosis. No pulmonic valve insufficiency. Great Vessels Normal sized aortic root. Pericardium/Pleural No pericardial effusion. Medication Diluted definity 1ml given slow IV push to enhance endocardial definition. MMode/2D Measurements & Calculations LVIDd: 3.1 cm IVSd: 1.3 cm Ao root diam: 3.4 cm LVIDs: 1.9 cm LVPWd: 0.95 cm RVDd: 2.7 cm FS: 37.8 % LAV(MOD-bp): 32.7 ml LVAd ap4: 23.7 cm2 SV(MOD-sp4): 39.3 ml LAV(MOD-bp) Indexed: 16.0 ml/m2 LVLd ap4: 6.8 cm SI(MOD-sp4): 19.2 ml/m2 LAV(MOD-sp2): 25.2 ml EDV(MOD-sp4): 67.4 ml LAV(MOD-sp4): 37.3 ml EDV(sp4-el): 70.5 ml LVAs ap4: 13.9 cm2 LVLs ap4: 5.6 cm ESV(MOD-sp4): 28.2 ml ESV(sp4-el): 29.3 ml EF(MOD-sp4): 58.2 % EF(sp4-el): 58.5 % SV(sp4-el): 41.2 ml LA A4 area: 15.2 cm2 LA dimension(2D): 3.7 cm RA A4 area: 8.7 cm2 TAPSE: 2.0 cm Time Measurements MV dec time: 0.26 sec Doppler Measurements & Calculations MV E max aroldo: 61.9 cm/sec Lat Peak E' Aroldo: 7.1 cm/sec Med Peak E' Aroldo: 7.6 cm/sec MV A max aroldo: 104.0 cm/sec E/E' lat: 8.7 E/E' med: 8.1 MV E/A: 0.59 MV dec slope: 252.5 cm/sec2 Ao V2 max: 161.0 cm/sec LV V1 max: 116.4 cm/sec Ao max P.4 mmHg LV V1 max P.4 mmHg Ao V2 mean: 109.7 cm/sec Ao mean P.3 mmHg Ao V2 VTI: 28.0 cm PA V2 max: 105.1 cm/sec ECHO/Echo Complete W/ Contrast Interpretation Summary The estimated ejection fraction is 65 %. No evidence for diastolic dysfunction. Ordering Physician: Annalisa Ceja Referring Physician: Levon Duke Performed By: Annie Worthington RDCS, RVT
[2025-08-03 21:37] LABS: Troponin T High Sens 4 HR 35 ng/L (<=22)
[2025-08-04] VITALS: BP 157/57; PULSE 108; RESP 18; TEMP 36.8; O2SAT 95
[2025-08-04] MEDS: MELATONIN 10 MG TABLET 5 MG PO (00:02)
[2025-08-04 03:41] VITALS: BMI 29.3
[2025-08-04 04:00] VITALS: BP 150/97; PULSE 107; RESP 18; TEMP 36.7; O2SAT 95
[2025-08-04 06:16] LABS: Hematocrit 41.3 % (40-54); Hemoglobin 14.0 g/dL (13.0-16.5); Immature Granulocytes Count 0.020 X10^3/uL (0.0-0.0); Mean Corp Hgb Conc 33.9 g/dL (32-36); Mean Corpuscular Volume 91.6 fL (80-94); Mean Platelet Vol. 9.3 fl (6.2-12.0); NRBC Flagged by Analyzer 0 % (0-5); Platelet Count 308 K/mm3 (150-450); RBC Distribution Width CV 11.7 % (11.6-14.6); RBC Distribution Width SD 39.1 fl (35.1-43.9); Red Blood Count 4.51 M/mm3 (4.6-6.2); White Blood Count 6.8 K/mm3 (4.4-11.0)
[2025-08-04 06:39] LABS: Calcium,Total 9.2 mg/dL (7.6-11.0)
[2025-08-04 06:53] VITALS: O2SAT 95
[2025-08-04 07:02] LABS: Anion Gap 16 (5-15); BUN 8 mg/dL (4-19); BUN/Creat Ratio 9.3 RATIO (10-20); Carbon Dioxide 21.6 mmol/L (21.0-32.0); Chloride 101 mmol/L (98-108); Cholesterol 138 mg/dL (<=200); Estimated Creatinine Clearance 84.29 ml/min (50-250); Glucose 97 mg/dL (70-99); Low Density Lipoprotein Calc. 60 mg/dL; Potassium 3.9 mmol/L (3.3-5.1); Triglycerides 270 mg/dL; Very Low Density Lipoprotein 54 mg/dL (5-40); cholesterol:hdl ratio screen 3.95
[2025-08-04 07:46] VITALS: BP 147/60; PULSE 105; RESP 17; TEMP 36.6; O2SAT 95
--- NOTE | 2025-08-04 10:45 | CON.PCM.NE_ITS ---
Assessment and Plan: Stroke Assessment/Plan MONICA SPAIN is a 75 year old formerly right handed male ex-smoker with a history of prior ischemic stroke 3 years ago with residual spastic right hemiparesis (arm worse than leg, wheelchair bound), [place] resident who on 08/03/25 at 12p after lunch developed a transient episode of difficulty speaking, lasted a few minutes then resolved. He presented to [place] [facility]. CT brain negative for acute changes. 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 He was admitted. He currently feels at baseline. He is on home Asa and lipitor 80. BP 147/60. 08/04/25 LDL 60. Neurological examination shows chronic right hemiparesis, NIHSS 7. ASSESSMENT/PLAN: Possible TIA 1) Recommend completing TIA work up including MRI brain, TTE, Lipids, HgbA1c 2) Continue daily anti-platelet medication (on Asa) 3) Continue vascular risk factor modification (on lipitor 80) Tatiana Ahn MD HPI Consult Data Date of Consult: 08/04/25 HPI Narrative HPI Narrative: MONICA SPAIN, is a 75 year old formerly right handed male ex-smoker with a history of prior ischemic stroke 3 years ago with residual spastic right hemiparesis (arm worse than leg, wheelchair bound), [place] resident who on 08/03/25 at 12p after lunch developed a transient episode of difficulty speaking, lasted a few minutes then resolved. He presented to [place] [facility]. CT brain negative for acute changes. 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 He was admitted. He currently feels at baseline. He is on nm s home Asa and lipitor 80. BP 147/60. 08/04/25 LDL 60. [facility] Medical History Alcohol abuse, in remission Essential (primary) hypertension Anxiety disorder, unspecified Weakness Unspecified diastolic (congestive) heart failure Epilepsy, unspecified, not intractable, without status epilepticus Vitamin D deficiency Sciatica, left side Major depressive disorder, single episode, unspecified Hemiplegia and hemiparesis following cerebral infarction affecting right dominant side Cerebral infarction, unspecified Home Medications ?Medication ?Instructions ?Recorded ?Last Taken ?Type albuterol sulfate 2.5 mg/3 mL 2.5 mg inhalation TID MS N 07/02/24 Unknown History (0.083 %) solution for nebulization shortness of breat h or wheezing amlodipine 5 mg tablet 10 mg PO DAILY 07/02/2407/23 07:52 History aspirin 81 mg capsule 81 mg PO DAILY 07/02/2407/23 07:52 History atorvastatin 80 mg tablet 80 mg PO QHS 07/02/24 19:53 History baclofen 10 mg tablet 10 mg PO BID 07/02/24 07:53 History baclofen 5 mg tablet 5 mg PO DAILY 07/02/2408/03 12:53 History furosemide 40 mg tablet (Lasix) 40 mg PO DAILY 4 08/03/25 07:56 History ipratropium 20 mcg-albuterol 100 1 puff inhalation Q4H PRN 07/02/24 Unknown History mcg/actuation mist for inhalation shortness of breath or wheezing (Combivent Respimat) losartan 100 mg tablet 100 mg PO DAILY 07/02/2408/16 07:56 History metoprolol succinate 25 mg 25 mg PO QHS 07/02/2408/02 19:57 History tablet,extended release 24 hr potassium chloride 20 mEq 40 meq PO DAILY 07/02/2408/16 07:59 History tablet,extended release psyllium 1 packet PO DAILY 07/02/24 1 10/04/24 08:00 History thiamine HCl (vitamin B1) 100 mg 100 mg PO DAILY 07/02 Unknown History tablet trazodone 50 mg tablet 25 mg PO QHS 07/02/24 19:59 History venlafaxine 37.5 mg 37.5 mg PO DAILY 07/02/24 08:00 History capsule,extended release 24 hr (Effexor XR) venlafaxine 75 mg capsule,extended 75 mg PO DAILY 06/2308/03/25 08:00 History release 24 hr (Effexor XR) cholestyramine 4 gram oral powder 4 g PO QDAY #239.4 g bandar 01/29/25 08/03/25 07:53 Rx (Cholestyramine Light) pantoprazole 40 mg tablet,delayed 40 mg PO DAILY #90 t abs 01/29/25 08/03/25 07:58 Rx release Lactobacillus rhamnosus GG 10 1 cap PO DAILY 08/03/25 08/03/25 08:02 History billion cell capsule (Culturelle) calcipotriene 0.005 % topical cream 1 applic topical B ID PRN rash 08/03/25 Unknown History dupilumab 300 mg/2 mL subcutaneous 300 mg subcut .q14d ays rash 08/03/25 Unknown History syringe (Dupixent) melatonin 5 mg capsule 5 mg PO QHS sleep 08/03/25 1 10/03/24 19:57 History polyethylene glycol 3350 17 17 g PO DAILY PRN constipa tion 08/03/25 Unknown History gram/dose oral powder (Miralax) Allergy/AdvReac Type Severity Reaction Status Date / Time No Known Allergies Allergy Verified 08/03/25 14:38 Family History no significant family his Social History Smoking Status: Former smoker Vital Signs Vital Signs Vital Signs: 08/03/25 14:38 08/03/25 15:17 08/03/25 15:17 Temperature 98.1 F Temperature Source Oral Pulse Rate 108 H 95 Pulse Strength Respiratory Rate 18 20 H Respiratory Effort Respiratory Depth Respiratory Pattern Blood Pressure 142/71 H 116/77 Blood Pressure Mean 94 90 Blood Pressure Source Blood Pressure Position Blood Pressure Location Pulse Ox 98 95 97 Oxygen Delivery Method Room Air Room Air 08/03/25 15:37 08/03/25 16:00 08/03/25 17:00 Temperature Temperature Source Pulse Rate 96 88 102 H Pulse Strength Respiratory Rate 20 H Respiratory Effort Respiratory Depth Respiratory Pattern Blood Pressure 132/64 H 123/61 H 124/63 H Blood Pressure Mean 86 81 83 Blood Pressure Source Blood Pressure Position Blood Pressure Location Pulse Ox 96 97 98 Oxygen Delivery Method Room Air Room Air Room Air 08/03/25 18:00 08/03/25 18:03 08/03/25 18:15 Temperature Temperature Source Pulse Rate 97 96 93 Pulse Strength Respiratory Rate 20 H 20 H 20 H Respiratory Effort Respiratory Depth Respiratory Pattern Blood Pressure 127/82 H Blood Pressure Mean 97 Blood Pressure Source Blood Pressure Position Blood Pressure Location Pulse Ox 98 100 96 Oxygen Delivery Method Room Air 08/03/25 18:30 08/03/25 18:45 08/03/25 19:00 Temperature Temperature Source Pulse Rate 96 Pulse Strength Respiratory Rate 16 Respiratory Effort Respiratory Depth Respiratory Pattern Blood Pressure 140/107 H Blood Pressure Mean 119 Blood Pressure Source Blood Pressure Position Blood Pressure Location Pulse Ox 96 96 96 Oxygen Delivery Method 08/03/25 19:15 08/03/25 19:38 08/03/25 20:00 Temperature 98.1 F 98.1 F Temperature Source Oral Pulse Rate 97 103 H Pulse Strength Respiratory Rate 20 H 18 Respiratory Effort Respiratory Depth Respiratory Pattern Blood Pressure 127/82 H 152/74 H Blood Pressure Mean 97 100 Blood Pressure Source Monitor Blood Pressure Position Semi-Fowlers Blood Pressure Location Left Arm Pulse Ox 97 98 97 Oxygen Delivery Method Room Air 08/03/25 21:10 08/03/25 22:00 08/03/25 22:00 Temperature Temperature Source Pulse Rate Pulse Strength Normal (2+) Respiratory Rate Respiratory Effort Normal Non-Labored Respiratory Depth Normal Respiratory Pattern Normal Blood Pressure Blood Pressure Mean Blood Pressure Source Blood Pressure Position Blood Pressure Location Pulse Ox 95 Oxygen Delivery Method Room Air Room Air 08/04/25 00:00 08/04/25 04:00 08/04/25 07:46 Temperature 98.3 F 98.1 F 97.9 F Temperature Source Temporal Temporal Oral Pulse Rate 108 H 107 H 105 H Pulse Strength Respiratory Rate 18 18 17 Respiratory Effort Respiratory Depth Respiratory Pattern Blood Pressure 157/57 H 150/97 H 147/60 H Blood Pressure Mean 90 114 89 Blood Pressure Source Monitor Monitor Monitor Blood Pressure Position Semi-Fowlers Semi-Fowlers Semi-Fowlers Blood Pressure Location Left Arm Right Arm Left Arm Pulse Ox 95 95 95 Oxygen Delivery Method Room Air Room Air Room Air 08/04/25 09:15 Temperature Temperature Source Pulse Rate Pulse Strength Normal (2+) Respiratory Rate Respiratory Effort Respiratory Depth Respiratory Pattern Blood Pressure Blood Pressure Mean Blood Pressure Source Blood Pressure Position Blood Pressure Location Pulse Ox Oxygen Delivery Method Weight Weight: 92.8 kg Body Mass Index (BMI) 29.3 Physical Exam Neuro Neuro Narrative: Neurological?examination: General: The patient appears nutritionally appropriate, well-groomed, and appears comfortable in no acute distress. Mental Status: ?The patient?s mental status was normal including orientation. ?Language was intact. ?Cranial nerves: ?No visual complaints, and extra-ocular motion was intact. Face motion symmetric. Tongue was midline with normal movement. ?There was mild dysarthria. Motor:Spastic right hemiparesis (arm worse than leg). Sensation: Intact light touch bilaterally, no extinction. ?Coordination: ?Bilateral finger to nose was normal. ?There was no dysmetria. Gait: ?deferred Lab / Micro Data 08/04/25 05:12 08/04/25 05:12 Labs: Laboratory Results - last 24 hr 08/03/25 15:30: WBC 9.5, RBC 4.80, Hgb 15.2, Hct 42.5, MCV 88.5, MCH 31.7, MCHC 35.8, RDW Std Deviation 37.6, RDW Coeff of Sangeeta 11.8, Plt Count 331, MPV 8.6, Immature Gran % (Auto) 0.100, Neut % (Auto) 70.9 H, Lymph % (Auto) 12.9 L, [place] % (Auto) 11.5 H, Eos % (Auto) 3.9, Baso % (Auto) 0.7, Absolute Neuts (auto) 6.7, Absolute Lymphs (auto) 1.22, Nucleated RBC % 0, PT 13.2, INR 1.0, APTT 26.1, Sodium 139, Potassium 4.2, Chloride 102, Carbon Dioxide 26.9, Anion Gap 10, BUN 10, Creatinine 0.84, Estim Creat Clear Calc 83.39, Est GFR (MDRD) Non-Af 91, BUN/Creatinine Ratio 11.6, Glucose 107 H, Calcium 9.6, Troponin T High Sens 32 H 08/03/25 17:23: Troponin T Hi Sens 2 Hr 44 H 08/03/25 20:51: Troponin T Hi Sens 4Hr 35 H 08/04/25 05:12: WBC 6.8, RBC 4.51 L, Hgb 14.0, Hct 41.3, MCV 91.6, MCH 31.0, M CHC 33.9 D, RDW Std Deviation 39.1, RDW Coeff of Sangeeta 11.7, Plt Count 308, MPV 9.3, Immature Gran % (Auto) 0.300, Neut % (Auto) 56.1, Lymph % (Auto) 21.4, [place] % (Auto) 16.2 H, Eos % (Auto) 5.0, Baso % (Auto) 1.0, Absolute Neuts (auto) 3.8, Absolute Lymphs (auto) 1.46, Nucleated RBC % 0, Sodium 139, Potassium 3.9, Chloride 101, Carbon Dioxide 21.6, Anion Gap 16 H, BUN 8, Creatinine 0.88, Estim Creat Clear Calc 84.29, Est GFR (MDRD) Non-Af 89, BUN/Creatinine Ratio 9.3 L, Glucose 97, Calcium 9.2, Triglycerides 270 H, Cholesterol 138, LDL Cholesterol, Calc 60, VLDL Cholesterol 54 H, HDL Cholesterol 35 L, Cholesterol/HDL Ratio 3.95 Imaging Radiology Impression Brain CT 08/03/25 15:17 IMPRESSION: 1. No acute intracranial abnormality. 2. Age-related senescent changes. Reading Location: [facility] Head/Neck CTA 08/03/25 15:17 IMPRESSION: Patient motion artifact limits evaluation of the intracranial vasculature. Subject to this limitation, no evidence for intracranial large vessel occlusion or high-grade stenosis. Atheromatous plaque at the carotid bulbs resulting in moderate >50% stenosis of the proximal left ICA, and more mild <50% stenosis of the proximal right ICA. Stroke Alert: The critical findings above were relayed directly by me by telephone to Alonso Albarran on 08/03/2025 at 4:06 pm [employer] with readback verification. Reading Location: [facility] Chest X-Ray 08/03/25 16:20 IMPRESSION: Cardiomegaly with mild congestion. Reading Location: [id number] Active Medications Active Medications Active Medications: Current Medications Generic Name Dose Route Start Last Admin Trade Name Freq PRN Reason Stop Dose Admin Acetaminophen 650 mg 08/03/25 19:32 Acetaminophen 325 Mg Tablet PO Q6H PRN PRN Pain 1-10 Or Fever >100.7 Albuterol Sulfate 2.5 mg 08/03/25 23:30 Albuterol 2.5 Mg/3 Ml Vial.Neb. INHALATION TID PRN PRN shortness of breath or wheezing Aspirin 81 mg 08/04/25 08:00 08/04/25 10:20 Aspirin 81 Mg Tab.Chew PO 81 mg BREAKFAST HARIS Administration Atorvastatin Calcium 80 mg 08/03/25 23:35 08/04/25 00:03 Atorvastatin Calcium 80 Mg Tablet PO 80 mg QHS [facility] Administration Baclofen 10 mg 08/03/25 23:35 08/04/25 10:20 Baclofen 10 Mg Tablet PO 10 mg BID [facility] Administration Baclofen 5 mg 08/04/25 14:00 Baclofen 10 Mg Tablet PO 1400 [facility] Cholestyramine Resin 4 gm 08/03/25 23:45 08/03/25 23:54 Cholestyramine/Sucrose 4 Gm/Packet PO Not Given 1100 [facility] Hydralazine HCl 5 mg 08/03/25 19:32 Hydralazine 20 Mg/Ml Vial IV 08/04/25 19:32 Q30M PRN maintain BP parameters with HR <60 Sodium Chloride 250 mls @ 15 mls/hr 08/03/25 19:45 IV .[id number] PRN Saline Flush Sodium Chloride 250 mls @ 15 mls/hr 08/03/25 19:45 IV .[id number] PRN Additional IVPB Infusion Labetalol HCl 10 - 20 mg 08/03/25 19:32 Labetalol 20 Mg/4 Ml Vial IV 08/04/25 19:32 Q10M PRN PRN maintain BP parameters with HR >/=60 Melatonin 5 mg 08/03/25 23:45 08/04/25 00:02 Melatonin 10 Mg Tablet PO 5 mg QHS [facility] Administration Nitroglycerin 0.4 mg 08/03/25 19:32 Nitroglycerin (Inpatient Use) 0.4 Mg Tab.Subl SL Q5M PRN CARDIAC/CHEST PAIN Oxycodone HCl 2.5 - 5 mg 08/03/25 19:32 Oxycodone 5 Mg Tablet PO Q4H PRN PRN Pain Score 4-10 Pantoprazole Sodium 40 mg 08/04/25 10:00 08/04/25 10:20 Pantoprazole Sodium 40 Mg Tablet PO 40 mg DAILY [facility] Administration Polyethylene Glycol 17 gm 08/03/25 23:50 Polyethylene Glycol 3350 17 Gm Packet PO DAILY PRN PRN constipation Psyllium Hydrophilic Mucilloid 1 packet 08/04/25 10:00 Psyllium 1 Packet PO DAILY [facility] Sodium Chloride 10 - 40 ml 08/03/25 19:45 0.9% Saline Lock 10 Ml Syringe IV UD PRN SALINE FLUSH Venlafaxine HCl 37.5 mg 08/04/25 10:00 Venlafaxine Xr 37.5 Mg Capsule PO DAILY [facility] Venlafaxine HCl 75 mg 08/04/25 10:00 Venlafaxine Xr 75 Mg Capsule PO DAILY [facility] NIHSS NIHSS Nursing Documentation NIHSS Nursing Documentation: NIH Stroke Scale Start: 08/03/25 14:49 Freq: Status: Discharge Protocol: Activity Type Activity Date Activity User E-sign Co-sign Detail Recorded Client Recorded Date Recorded By Document 08/03/25 14:50 [facility] [id number] 08/03/25 14:51 [facility] 08/03/25 14:50 NIH Stroke Scale [NIHSS] A score of 0 is normal or asymptomatic . Total possible score is 42. Inpatient: RN or Physician to activate a stroke alert for onset of new stroke symptoms or with NIHSS increase >/= 3 points. Following change in neurological status, NIHSS will be performed per physician order or more frequently PRN. -1a. Level of Consciousness 0 - Alert; keenly responsive -1b. LOC Questions 0 - Answers BOTH questions correctly -1c. LOC Commands 0 - Performs BOTH tasks correctly -2. Best Gaze 0 - Normal -3. Visual 0 - No visual loss -4. Facial Palsy 0 - Normal symmetrical movements -5a. Left Arm 0 - No drift; arm holds 90 ( or 45) degrees for full 10 seconds -5b. Right Arm 3 - No effort against gravity ; arm falls -'UN' explanation NORMAL SINCE PRIOR STROKE -6a. Left Leg 0 - No drift; leg holds 30- degree position for full 5 seconds -6b. Right Leg 0 - No drift; leg holds 30- degree position for full 5 seconds -7. Limb Ataxia 0 - Absent -8. Sensory 0 - Normal; no sensory loss -9. Best Language 0 - No aphasia; normal -10. Dysarthria 0 - Normal -11. Extinction and Inattention 0 - No abnormality -Total 3 Query Text:A score of 0 is normal or asymptomatic. Total possible score is 42 . ED: Notify Physician for NIHSS increase by > / = 3 points. Inpatient: RN or Physician to activate a stroke alert for NIHSS increase of > / = 3 points. NIHSS: Ischemic Stroke/TIA Start: 08/03/25 19:32 Text: For PCU Patients: NIH and Neuro Check every 4 Status: Active hours, PRN and with change in RN caregiver. Freq: [id number] Protocol: Activity Type Activity Date Activity User E-sign Co-sign Detail Recorded Client Recorded Date Recorded By Document 08/04/25 07:46 [id number] 08/04/25 07:48 08/04/25 07:46 -1a. Level of Consciousness 0 - Alert; keenly responsive -1b. LOC Questions 0 - Answers BOTH questions correctly -1c. LOC Commands 0 - Performs BOTH tasks correctly -2. Best Gaze 0 - Normal -3. Visual 0 - No visual loss -4. Facial Palsy 0 - Normal symmetrical movements -5a. Left Arm 0 - No drift; arm holds 90 ( or 45) degrees for full 10 seconds -5b. Right Arm 2 - Some effort against gravity; -6a. Left Leg 0 - No drift; leg holds 30- degree position for full 5 seconds -6b. Right Leg 0 - No drift; leg holds 30- degree position for full 5 seconds -7. Limb Ataxia 1 - Present in 1 limb -8. Sensory 0 - Normal; no sensory loss -9. Best Language 0 - No aphasia; normal -10. Dysarthria 1 = Mild-to- moderate dysarthria; -11. Extinction and Inattention 0 - No abnormality -Total 4 Query Text:A score of 0 is normal or asymptomatic. Total possible score is 42 . ED: Notify Physician for NIHSS increase by > / = 3 points. Inpatient: RN or Physician to activate a stroke alert for NIHSS increase of > / = 3 points. Coma Scale [Assess] -Eye Opening Spontaneous -Motor Obeys Commands -Verbal Oriented [Total] -Coma Scale Total 15 NIHSS 1a. Level of Consciousness: 0 - Alert; keenly responsive 1b. LOC Questions: 0 - Answers BOTH questions correctly 1c. LOC Commands: 0 - Performs BOTH tasks correctly 2. Best Gaze: 0 - Normal 3. Visual: 0 - No visual loss 4. Facial Palsy: 0 - Normal symmetrical movements 5a. Left Arm: 0 - No drift; arm holds 90 (or 45) degrees for full 10 seconds 5b. Right Arm: 3 - No effort against gravity; arm falls 6a. Left Le - No drift; leg holds 30-degree position for full 5 seconds 6b. Right Le - No effort against gravity; leg falls to bed immediately 8. Sensory: 0 - Normal; no sensory loss 9. Best Language: 0 - No aphasia; normal 10. Dysarthria: 1 = [id number] dysarthria; 11. Extinction and Inattention: 0 - No abnormality Total: 7
--- NOTE | 2025-08-04 11:13 | PN.HOSP_ITS ---
Reason for Visit Chief Complaint: difficulty speaking Subjective Subjective Patient has confusion followed by expressive aphasia. Symptoms last about 5 minutes. Never anything like this before. Has had a history of stroke with right-sided weakness. Objective Data Objective Data Vital Signs: Vital Signs Temp Pulse Resp BP Pulse Ox O2 Del Method 36.6 C 105 H 17 147/60 H 95 Room Air 08/04/25 07:46 08/04/25 07:46 08/04/25 07:46 08/04/25 07:46 08/04/25 07:46 08/04/25 07:46 Oxygen Delivery Method Room Air Weight: 92.8 kg Body Mass Index (BMI) 29.3 Intake & Output: Intake and Output for Last 24 Hours 08/02/25 08/03/25 08/04/25 23:59 23:59 23:59 Intake Total 450 / 450 Output Total 300 / 300 Balance 150 / 150 Lab / Micro Data 08/04/25 05:12 08/04/25 05:12 Labs: Laboratory Results - last 24 hr 08/03/25 15:30: WBC 9.5, RBC 4.80, Hgb 15.2, Hct 42.5, MCV 88.5, MCH 31.7, MCHC 35.8, RDW Std Deviation 37.6, RDW Coeff of Sangeeta 11.8, Plt Count 331, MPV 8.6, Immature Gran % (Auto) 0.100, Neut % (Auto) 70.9 H, Lymph % (Auto) 12.9 L, Drew % (Auto) 11.5 H, Eos % (Auto) 3.9, Baso % (Auto) 0.7, Absolute Neuts (auto) 6.7, Absolute Lymphs (auto) 1.22, Nucleated RBC % 0, PT 13.2, INR 1.0, APTT 26.1, Sodium 139, Potassium 4.2, Chloride 102, Carbon Dioxide 26.9, Anion Gap 10, BUN 10, Creatinine 0.84, Estim Creat Clear Calc 83.39, Est GFR (MDRD) Non-Af 91, BUN/Creatinine Ratio 11.6, Glucose 107 H, Calcium 9.6, Troponin T High Sens 32 H 08/03/25 17:23: Troponin T Hi Sens 2 Hr 44 H 08/03/25 20:51: Troponin T Hi Sens 4Hr 35 H 08/04/25 05:12: WBC 6.8, RBC 4.51 L, Hgb 14.0, Hct 41.3, MCV 91.6, MCH 31.0, M CHC 33.9 D, RDW Std Deviation 39.1, RDW Coeff of Sangeeta 11.7, Plt Count 308, MPV 9.3, Immature Gran % (Auto) 0.300, Neut % (Auto) 56.1, Lymph % (Auto) 21.4, Drew % (Auto) 16.2 H, Eos % (Auto) 5.0, Baso % (Auto) 1.0, Absolute Neuts (auto) 3.8, Absolute Lymphs (auto) 1.46, Nucleated RBC % 0, Sodium 139, Potassium 3.9, Chloride 101, Carbon Dioxide 21.6, Anion Gap 16 H, BUN 8, Creatinine 0.88, Estim Creat Clear Calc 84.29, Est GFR (MDRD) Non-Af 89, BUN/Creatinine Ratio 9.3 L, Glucose 97, Calcium 9.2, Triglycerides 270 H, Cholesterol 138, LDL Cholesterol, Calc 60, VLDL Cholesterol 54 H, HDL Cholesterol 35 L, Cholesterol/HDL Ratio 3.95 Radiography Diagnostic Testing: Radiology Impression Brain CT 08/03/25 15:17 IMPRESSION: 1. No acute intracranial abnormality. 2. Age-related senescent changes. Reading Location: [facility] Head/Neck CTA 08/03/25 15:17 IMPRESSION: Patient motion artifact limits evaluation of the intracranial vasculature. Subject to this limitation, no evidence for intracranial large vessel occlusion or high-grade stenosis. Atheromatous plaque at the carotid bulbs resulting in moderate >50% stenosis of the proximal left ICA, and more mild <50% stenosis of the proximal right ICA. Stroke Alert: The critical findings above were relayed directly by me by telephone to Alonso Albarran on 08/03/2025 at 4:06 pm MEDICAL CARE EVALUATION SPECIALIST with readback verification. Reading Location: [facility] Chest X-Ray 08/03/25 16:20 IMPRESSION: Cardiomegaly with mild congestion. Reading Location: [facility] Physical Exam Const alert and no apparent distress Constitutional Narrative: Up in bed. Nontoxic. Afebrile. Resp normal respiratory effort, no retractions, no use of accessory muscles and clear to auscultation bilaterally Cardio regular rate, regular rhythm, S1 normal heart sound and S2 normal heart sound Neuro moves all extremities Neuro Narrative: Muscle strength 5-5 in left upper and left lower extremity. 4 out of 5 in the right lower extremity and 3 out of 5 in the right upper extremity. Sensorium / Orientation: awake and alert Assessment & Plan Assessment/Plan (1) TIA (transient ischemic attack): (2) Elevated troponin: PLAN: Plan TIA * pt presented with expressive aphasia. * note carotid stenosis on CTA of greater than 50% on proximal left ICA and less than 50% on proximal right. * MRI brain was negative for any acute process. And echo shows an EF of 65%. * Consult PT OT. * Neurology recommending to continue ASA and atorvastatin. Elevated troponins: * Likely demand ischemia from TIA. * Initial troponin was 32 and trended up to 44. Denies any chest pain. * Most recent echo is from July 06, 2024 showed EF of 60% and no acute wall motion abnormalities and no diastolic dysfunction. * Follow up echo shows no wall motion abnormality. No additional workup necessary. Carotid stenosis: * CTA head and neck as above. * Follow-up with vascular surgery as outpatient. Chronic medical conditions: * hypertension: Hold losartan and metoprolol to allow for permissive hypertension. IV labetalol as needed on account of stroke * Depression: On venlafaxine * GERD: On PPI DVT prophylax: SCDs CODE STATUS: full code Discharge back to the [facility]. NIHSS NIHSS Nursing Documentation NIHSS Nursing Documentation: NIH Stroke Scale Start: 08/03/25 14:49 Freq: Status: Discharge Protocol: Activity Type Activity Date Activity User E-sign Co-sign Detail Recorded Client Recorded Date Recorded By Document 08/03/25 14:50 [facility] [id number] 08/03/25 14:51 [facility] 08/03/25 14:50 NIH Stroke Scale [NIHSS] A score of 0 is normal or asymptomatic . Total possible score is 42. Inpatient: RN or Physician to activate a stroke alert for onset of new stroke symptoms or with NIHSS increase >/= 3 points. Following change in neurological status, NIHSS will be performed per physician order or more frequently PRN. -1a. Level of Consciousness 0 - Alert; keenly responsive -1b. LOC Questions 0 - Answers BOTH questions correctly -1c. LOC Commands 0 - Performs BOTH tasks correctly -2. Best Gaze 0 - Normal -3. Visual 0 - No visual loss -4. Facial Palsy 0 - Normal symmetrical movements -5a. Left Arm 0 - No drift; arm holds 90 ( or 45) degrees for full 10 seconds -5b. Right Arm 3 - No effort against gravity ; arm falls -'UN' explanation NORMAL SINCE PRIOR STROKE -6a. Left Leg 0 - No drift; leg holds 30- degree position for full 5 seconds -6b. Right Leg 0 - No drift; leg holds 30- degree position for full 5 seconds -7. Limb Ataxia 0 - Absent -8. Sensory 0 - Normal; no sensory loss -9. Best Language 0 - No aphasia; normal -10. Dysarthria 0 - Normal -11. Extinction and Inattention 0 - No abnormality -Total 3 Query Text:A score of 0 is normal or asymptomatic. Total possible score is 42 . ED: Notify Physician for NIHSS increase by > / = 3 points. Inpatient: RN or Physician to activate a stroke alert for NIHSS increase of > / = 3 points. NIHSS: Ischemic Stroke/TIA Start: 08/03/25 19:32 Text: For PCU Patients: NIH and Neuro Check every 4 Status: Active hours, PRN and with change in RN caregiver. Freq: [id number] Protocol: Activity Type Activity Date Activity User E-sign Co-sign Detail Recorded Client Recorded Date Recorded By Document 08/04/25 07:46 [id number] 08/04/25 07:48 08/04/25 07:46 -1a. Level of Consciousness 0 - Alert; keenly responsive -1b. LOC Questions 0 - Answers BOTH questions correctly -1c. LOC Commands 0 - Performs BOTH tasks correctly -2. Best Gaze 0 - Normal -3. Visual 0 - No visual loss -4. Facial Palsy 0 - Normal symmetrical movements -5a. Left Arm 0 - No drift; arm holds 90 ( or 45) degrees for full 10 seconds -5b. Right Arm 2 - Some effort against gravity; -6a. Left Leg 0 - No drift; leg holds 30- degree position for full 5 seconds -6b. Right Leg 0 - No drift; leg holds 30- degree position for full 5 seconds -7. Limb Ataxia 1 - Present in 1 limb -8. Sensory 0 - Normal; no sensory loss -9. Best Language 0 - No aphasia; normal -10. Dysarthria 1 = Mild-to- moderate dysarthria; -11. Extinction and Inattention 0 - No abnormality -Total 4 Query Text:A score of 0 is normal or asymptomatic. Total possible score is 42 . ED: Notify Physician for NIHSS increase by > / = 3 points. Inpatient: RN or Physician to activate a stroke alert for NIHSS increase of > / = 3 points. Coma Scale [Assess] -Eye Opening Spontaneous -Motor Obeys Commands -Verbal Oriented [Total] -Coma Scale Total 15
--- NOTE | 2025-08-04 11:30 | MRI_ITS ---
PROCEDURE: BRAIN WITHOUT CONTRAST 08/04/2025 REASON FOR EXAM: EXPRESSIVE APHASIA TECHNIQUE: Procedure Code: MRIBR Modality: MR Procedure: BRAIN WITHOUT CONTRAST Multiplanar and multisequence images were obtained. COMPARISON: CT head August 03, 2025. FINDINGS: Brain: Foci of hyperintense signal on T2 and FLAIR which are nonspecific but most likely due to chronic small vessel ischemia. Parenchymal volume loss consistent with brain atrophy. No restricted diffusion. No hemorrhage. No mass-effect or midline shift. The orbits are unremarkable. The midline structures and craniocervical junctions are within normal limits. No ventriculomegaly. Ventricles: Consistent with the overall degree of cerebral atrophy. Major Intracranial Vessels: Patent Sinuses: Clear Mastoids: Clear MRI/Brain without Contrast IMPRESSION: No acute brain abnormalities. Brain atrophy and white matter hyperintense signal on T2 consistent with chroni c small-vessel ischemia. Reading Location: [id number]
[2025-08-04 11:46] VITALS: PULSE 104; RESP 17; TEMP 36.7; O2SAT 95
[2025-08-04] MEDS: Psyllium 1 PACKET PO (12:30)
--- NOTE | 2025-08-04 14:59 | CASEMGMT ---
Social Work PHQ-9 completed as pt may have had a stroke. Pt scored a 3. Pt does have depression at his baseline, takes meds and sees a counselor one time per month at [facility]. Pt is satisfied w/his counseling services. DONALD Byers
--- NOTE | 2025-08-04 15:00 | CASEMGMT ---
Addendum entered by Jayla Rodriguez 08/04/25 15:35: Social Work SW did get confirmation pt can return today to [facility]. Green sheet created and staff notified, pt will d/c today back to [facility]. DONALD Byers Original Note: Social Work SW met w/pt, confirmed plan is to return to [facility] at d/c. SNF list is not needed. SW sent updates in [facility], awaiting a response. SHAWN ByersS
--- NOTE | 2025-08-04 15:11 | TREXTCAR_ITS ---
Diet Diet Order/Speech Therapy: INPATIENT Hospital Diet / Speech Therapy Order(s) 08/03/25 19:32 Diet: Cardiac - Heart Healthy Food consistency:: Regular Liquid Consistency:: Regular/Thin Routine Orders/Code Status Code Status: Full Code DC O2, CPAP, BIPAP needs Home O2 Discharge instructions: No Therapies Weight Bearing: Full weight bearing Physical Therapy: Eval and Treat Occupational Therapy: Eval and Treat Problem/Diagnosis (1) TIA (transient ischemic attack): Status: Acute Code(s): G45.9 - Transient cerebral ischemic attack, unspecified (2) Elevated troponin: Status: Acute Code(s): R79.89 - Other specified abnormal findings of blood chemistry Plan TIA * pt presented with expressive aphasia. * note carotid stenosis on CTA of greater than 50% on proximal left ICA and less than 50% on proximal right. * MRI brain was negative for any acute process. And echo shows an EF of 65%. * Consult PT OT. * Neurology recommending to continue ASA and atorvastatin. Elevated troponins: * Likely demand ischemia from TIA. * Initial troponin was 32 and trended up to 44. Denies any chest pain. * Most recent echo is from July 06, 2024 showed EF of 60% and no acute wall motion abnormalities and no diastolic dysfunction. * Follow up echo shows no wall motion abnormality. No additional workup necessary. Carotid stenosis: * CTA head and neck as above. * Follow-up with vascular surgery as outpatient. Chronic medical conditions: * hypertension: Hold losartan and metoprolol to allow for permissive hypertension. IV labetalol as needed on account of stroke * Depression: On venlafaxine * GERD: On PPI DVT prophylax: SCDs CODE STATUS: full code Discharge back to [facility]. Allergies/Procedures Done in Hospital Allergies No Known Allergies Allergy (Verified 08/03/25 14:38) Procedures: 2-D Echocardiogram Type of Care/Length of Stay Estimated LOS: Convalescent Care Less Than 30 days Type of Care Needed: Skilled Rehab Potential: Good Prognosis: Good Additional Orders/Day of Discharge Day of Discharge: 08/04/25 Dietary and Speech Recommendations Dietitian Recommendations/Changes: Continue cardiac diet. Will monitor weight trends. PO will need to be established. Discharge Plan Admission Admit Date/Time: 08/03/25 18:18 Primary Reason for Your Visit: TIA Attending Provider: Alonso Carlos Primary Care Provider: Levon Duke Consulting Providers: Annalisa Ceja; Vin Stephens; Ara Watts; Briseida Persaud; Sierra Bonds; Selina Lynch; Andrew Page; Sue Mercedes; Reed Goodman; Ramsey Moy; Dave Kwok; Basilia Cain; Laura Tiwari; Yonas Penaloza; Virginia Fernandez; Ernestina Boroks; Fazal Hurst; Km Thomas; Lila Ahn; Chapincito Calvert; Tatiana Ahn; Sandra Mayes Discharge Orders/Prescriptions Prescriptions: Continued pantoprazole 40 mg tablet,delayed release (DR/EC) 40 mg PO DAILY Qty: 90 4RF Cholestyramine Light 4 gram powder 4 g PO QDAY Qty: 239.4 4RF Rx Instructions: administer w/meal; avoid other meds within 1hr before or 4-6hr after dose albuterol sulfate 2.5 mg /3 mL (0.083 %) solution for nebulization 2.5 mg inhalation TID PRN (Reason: shortness of breath or wheezing) thiamine HCl (vitamin B1) 100 mg tablet 100 mg PO DAILY trazodone 50 mg tablet 25 mg PO QHS amlodipine 5 mg tablet 10 mg PO DAILY aspirin 81 mg capsule 81 mg PO DAILY atorvastatin 80 mg tablet 80 mg PO QHS baclofen 10 mg tablet 10 mg PO BID baclofen 5 mg tablet 5 mg PO DAILY Rx Instructions: every afternoon Combivent Respimat 20-100 mcg/actuation mist 1 puff inhalation Q4H PRN (Reason: shortness of breath or wheezing) psyllium Packet 1 packet PO DAILY Rx Instructions: mix into at least 8 oz of water or juice before administering venlafaxine [Effexor XR] 37.5 mg capsule,extended release 24hr 37.5 mg PO DAILY venlafaxine [Effexor XR] 75 mg capsule,extended release 24hr 75 mg PO DAILY furosemide [Lasix] 40 mg tablet 40 mg PO DAILY losartan 100 mg tablet 100 mg PO DAILY metoprolol succinate 25 mg tablet extended release 24 hr 25 mg PO QHS potassium chloride 20 mEq tablet extended release 40 meq PO DAILY Dupixent Syringe 300 mg/2 mL syringe 300 mg SUBCUT .[id number] Patient Comments: [NO ORIGINAL SIG] melatonin 5 mg capsule 5 mg PO QHS calcipotriene 0.005 % cream 1 applic topical BID PRN Culturelle 10 billion cell capsule 1 cap PO DAILY polyethylene glycol 3350 [Miralax] 17 gram/dose powder 17 g PO DAILY PRN (Reason: constipation) Referrals / Follow Up: [facility] [Provider Group] - Within 1 Month Alonso Cabrera MD [Med Staff - Active Staff, Vascular Surgery] - Within 1 Month Levon Duke MD [Primary Care Provider, Family Practice] - Within 2 Weeks Disposition Disposition (needs filled in before D/C Order can be placed): [facility]
[2025-08-04 15:17] VITALS: BMI 29.3
[2025-08-04 16:27] VITALS: BP 156/84; PULSE 103; RESP 17; TEMP 36.7; O2SAT 96
[2025-08-04 16:32] VITALS: BMI 29.3
== END 2025-08-04 19:57 | disposition skilled nursing facility (03) ==
LOC: ED 18:10 → PCU 18:29
PROVIDERS: Admitting Provider Student in an Organized Health Care Education/Training Program; Emergency Provider Emergency Medicine; PCP Family Medicine
DX: G45.9 Transient cerebral ischemic attack, unspecified (principal); I69.351 Hemiplegia and hemiparesis following cerebral infarction affecting right dominant side; I11.0 Hypertensive heart disease with heart failure; I50.32 Chronic diastolic (congestive) heart failure; Z79.82 Long term (current) use of aspirin; R47.01 Aphasia; Z79.899 Other long term (current) drug therapy; K21.9 Gastro-esophageal reflux disease without esophagitis; Z87.891 Personal history of nicotine dependence; F32.9 Major depressive disorder, single episode, unspecified; Z79.02 Long term (current) use of antithrombotics/antiplatelets; F41.9 Anxiety disorder, unspecified
CPT/HCPCS: 36415; 70450; 70496; 70498; 70551; 71045; 80048; 80061; 84484; 85025; 85610; 85730; 92523; 93005; 93306; 94762; 97162; 97166; 99221; 99285; Q9957; Q9967; A4216; C8929; G0378